=== PATIENT | male | born 1940 | race Caucasian/White ===

== ENCOUNTER 2016-08-13 15:02 | Inpatient (IN) | payer MEDICARE, OTHER ==
[2016-08-13] MEDS ORDERED: SODIUM CHLORIDE 500 ML IV STA (15:32)
--- NOTE | 2016-08-13 15:34 | PDOC ---
History of Present Illness - General History Source: Patient, Family, Old Records Exam Limitations: No Limitations - History of Present Illness Initial Comments: 08/13/16 18:41 The patient is a 76 year old male presenting with his family, with a significant past medical history of COPD, PPH, HTN, CVA, who presents to the emergency department with weakness, poor appetite cough and shortness of breath for the past 4 days. The family describes the cough as productive of a yellow sputum. The family also notes that the patients lower extremities and abdomen has been swelling over the last 10 days. They have also noticed that the patient has been diaphoretic. The family states that the patient has not been eating or drinking well, eating only once a day. They note that he has been complaining of dizziness during this time frame as well. The patient has been following closely with Dr Alston due to his retention of liquid. He is currently on Lasix 80 mg in the morning and [address] Alston notes that he has seen some improvement with the increase Lasix. He notes that he has d/c most of his cardiac medication with the exception of Lasix due to the patients clinical condition. The patient denies chest pain, headache and dizziness. Denies fever, chills, nausea, vomit, diarrhea and constipation. Denies dysuria, frequency, urgency and hematuria. 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 <Tye Serrano - Last Filed: 08/13/16 18:40> - General History Source: Patient <[place] - Last Filed: 08/13/16 18:47> - General Chief Complaint: Weakness Stated Complaint: WEAKNESS Time Seen by Provider: 08/13/16 15:21 Past History <Tye Serrano - Last Filed: 08/13/16 18:40> - Past Medical History Anemia: No Asthma: No Cancer: No Cardiac Disorders: Yes (PACEMAKER lft) CVA: Yes (residual Left sided weakness) COPD: Yes CHF: Yes Dementia: No Diabetes: No GI Disorders: Yes (gerd) Disorders: No HTN: Yes Hypercholesterolemia: Yes Liver Disease: No Suicide Attempt (Hx): No Seizures: No Thyroid Disease: No - Surgical History Abdominal Surgery: No Appendectomy: No Cardiac Surgery: Yes (BYPASS, PACEMAKER) Cholecystectomy: No Lung Surgery: No Neurologic Surgery: No - Immunization History Immunization Up to Date: Yes - Psycho/Social/Smoking Cessation Hx Anxiety: No Suicidal Ideation: No Smoking Status: Yes (STOPPED 3 MONTHS) Smoking History: Unknown if ever smoked Have you smoked in the past 12 months: Yes Number of Cigarettes Smoked Daily: 2 If you are a former smoker, when did you quit?: APRIL 2012 'Breaking Loose' booklet given: 02/09/14 Hx Alcohol Use: No Drug/Substance Use Hx: No Substance Use Type: None Hx Substance Use Treatment: No <[place] - Last Filed: 08/13/16 18:47> - Past Medical History Allergies/Adverse Reactions: Allergies Allergy/AdvReac Type Severity Reaction Status Date / Time No Known Drug Allergies Allergy Verified 08/13/16 16:03 Home Medications: Ambulatory Orders Aspirin [ASA -] 81 mg PO DAILY 02/08/14 Atorvastatin Ca [Lipitor] 10 mg PO HS 02/08/14 Clopidogrel Bisulfate [Plavix -] 75 mg PO DAILY 02/08/14 Potassium Chloride [K-Dur] 20 meq PO DAILY 02/08/14 Ranitidine [Zantac -] 150 mg PO DAILY 02/08/14 Furosemide [Lasix -] 40 mg PO BID 08/13/16 Review of Systems - Review of Systems Able to Perform ROS?: Yes Comments:: 08/13/16 18:41 CONSTITUTIONAL: Reported: Generalized weakness, diaphoresis and loss of appetite No reported: Fever, Chills, malaise HEENT: No reported: Rhinorrhea, Nasal Congestion, Throat Pain, Throat Swelling, Difficulty Swallowing, Mouth Swelling, Ear Pain, Eye Pain, Visual Changes CARDIOVASCULAR: No reported: Chest Pain, Syncope, Palpitations, Irregular Heart Rate, Lightheadedness, Peripheral Edema RESPIRATORY: Reported: Cough, shortness of breath No reported: SOB with Exertion, Orthopnea, Wheezing, Stridor, Hemoptysis GASTROINTESTINAL: No reported: Abdominal pain, Abdominal Distension, Nausea, Vomiting, Diarrhea, Constipation, Melena, Hematochezia GENITOURINARY: No reported: Dysuria, Frequency, Urgency, Hesitancy, Flank Pain, Genital Pain MUSCULOSKELETAL: No reported: Myalgia, Arthralgia, Joint Swelling, Back pain, Neck Pain SKIN: No reported: Rash, Itching, Pallor HEMEATOLOGIC/IMMUNOLOGIC: No reported: Easy Bleeding, Easy Bruising, Lymphadenopathy, Frequent infections ENDOCRINE: No reported: Unexplained Weight Gain, Unexplained Weight Loss, Heat Intolerance , Cold Intolerance NEUROLOGIC: No reported: Headache, Focal Weakness, Paresthesias, Vertigo, Lightheadedness, Unsteady Gait, Seizure, Mental Status Changes, Incontinence PSYCHIATRIC: No reported: Anxiety, Depression <Tye Serrano - Last Filed: 08/13/16 18:40> *Physical Exam - Vital Signs Last Vital Signs Temp Pulse Resp BP Pulse Ox 98.2 F 80 19 96/61 95 08/13/16 17:15 08/13/16 17:15 08/13/16 17:15 08/13/16 17:15 08/13/16 17:15 - Physical Exam Comments: 08/13/16 18:41 GENERAL: The patient is awake, alert,Nontoxic - in no acute distress. HEAD: Normocephalic, atraumatic. EYES: extraocular movements intact, sclera anicteric, conjunctiva clear. ENT: Normal voice, dry mucous membranes NECK: Normal range of motion, supple LUNGS: Breath sounds equal, clear to auscultation bilaterally. No wheezes, no rhonchi, no rales. HEART: Regular rate and rhythm, without murmur, rub or gallop. ABDOMEN: +Distended abdomen, nontender, normoactive bowel sounds. No guarding, no rebound.No CVA tenderness RECTAL: yellow stool EXTREMITIES: +2 pitting edema bilatrally. No calf tenderness. Negative holmans sign. Normal range of motion, no edema. No clubbing or cyanosis. No cords, erythema, or tenderness. NEUROLOGICAL: No facial assymetry, Normal speech, PSYCH: Normal mood, normal affect. SKIN: Warm, Dry, normal turgor <Tye Serrano - Last Filed: 08/13/16 18:40> Heart Score/ECG Review - ECG Impressions Comment:: 08/13/16 18:46 Twelve-lead EKG was performed and reviewed by me. Atrial sensed pacing with occasional AV dual paced complexes No changes suggestive of acute ischemia <[place] - Last Filed: 08/13/16 18:47> ED Treatment Course - LABORATORY CBC & Chemistry Diagram: 08/13/16 15:45 08/13/16 15:45 - ADDITIONAL ORDERS Additional order review: Laboratory Results 08/13/16 08/13/16 08/13/16 15:54 15:45 15:45 INR PTT (Actin FS) VBG pH 7.30 L POC VBG pCO2 49.2 POC VBG pO2 25.4 L Mixed VBG HCO3 23.4 Sodium Potassium Chloride Carbon Dioxide Anion Gap BUN Creatinine Creat Clearance w eGFR Random Glucose Lactic Acid Calcium Total Bilirubin AST ALT Alkaline Phosphatase Creatine Kinase Troponin I B-Natriuretic Peptide 64558.01 H Total Protein Albumin Blood Type A POSITIVE Antibody Screen Negative Crossmatch See Detail 08/13/16 08/13/16 08/13/16 15:45 15:45 15:36 INR 1.68 H PTT (Actin FS) 30.9 VBG pH POC VBG pCO2 POC VBG pO2 Mixed VBG HCO3 Sodium 144 Potassium 4.2 Chloride 109 H Carbon Dioxide 23 D Anion Gap 12 BUN 64 H D Creatinine 1.9 H D Creat Clearance w eGFR 34.64 Random Glucose 111 H D Lactic Acid 4.998 H* Calcium 8.1 L Total Bilirubin 1.3 H D AST 26 D ALT 17 D Alkaline Phosphatase 157 H Creatine Kinase 67 Troponin I 0.06 H D B-Natriuretic Peptide Total Protein 6.9 Albumin 2.4 L D Blood Type Antibody Screen Crossmatch 08/13/16 15:45 RBC 3.43 L D MCV 67.4 L MCHC 26.9 L RDW 24.9 H D MPV 9.1 Neutrophils % 75.1 D Lymphocytes % 8.8 D Monocytes % 14.1 H Eosinophils % 1.0 Basophils % 1.0 - Medications Given in the ED: ED Medications Discontinued Medications Generic Name Dose Route Start Last Admin Trade Name Freq PRN Reason Stop Dose Admin Sodium Chloride 500 mls @ 500 mls/hr 08/13/16 15:32 08/13/16 15:32 Normal Saline - IV 08/13/16 16:31 500 mls/hr ASDIR STA Administration <Tye Serrano - Last Filed: 08/13/16 18:40> - LABORATORY CBC & Chemistry Diagram: 08/13/16 15:45 08/13/16 15:45 - RADIOLOGY Radiology Studies Ordered: Category Date Time Status CHEST X-RAY PORTABLE* [RAD] Stat Radiology 08/13/16 15:31 Ordered <[place] - Last Filed: 08/13/16 18:47> Medical Decision Making - Medical Decision Making 08/13/16 15:34 76y M hx of copd, chf s/p PM, CVA with residula left sided weakness, htn, hl, presents with complaint of general weakness, sob/cough productive of yellowish sputum for several days w/o fevers, pt does endorse increased leg swelling w/o any pain. on exam pt noted to have dry mmm with dependent edema, pts vitals noted hypotension. differential includes possible sepsis/pna, renal failure, chf, metabolic dernagement will fluid resusitate to see if bp is improved with fluid bolus cxr to r/o pna/ acute pulm disease will obtain trop,bnp, ekg will reassess 08/13/16 16:47 Laboratory Tests 08/13/16 08/13/16 08/13/16 15:36 15:45 15:45 WBC 10.4 H D Hgb 6.2 L* D Hct 23.0 L D Plt Count 316 D INR 1.68 H PTT (Actin FS) 30.9 VBG pH POC VBG pCO2 POC VBG pO2 Mixed VBG HCO3 Sodium Potassium Chloride Carbon Dioxide Anion Gap BUN Creatinine Creat Clearance w eGFR Random Glucose Lactic Acid Pending Calcium Total Bilirubin Alkaline Phosphatase Troponin I B-Natriuretic Peptide Total Protein Albumin 08/13/16 08/13/16 08/13/16 15:45 15:45 15:54 WBC Hgb Hct Plt Count INR PTT (Actin FS) VBG pH 7.30 L POC VBG pCO2 49.2 POC VBG pO2 25.4 L Mixed VBG HCO3 23.4 Sodium 144 Potassium 4.2 Chloride 109 H Carbon Dioxide 23 D Anion Gap 12 BUN 64 H D Creatinine 1.9 H D Creat Clearance w eGFR 34.64 Random Glucose 111 H D Lactic Acid Calcium 8.1 L Total Bilirubin 1.3 H D Alkaline Phosphatase 157 H Troponin I 0.06 H D B-Natriuretic Peptide 52550.01 H Total Protein 6.9 Albumin 2.4 L D The patient's blood work was reviewed the patient is noted to be severely anemic with a hemoglobin of 6.9. will give pt 2u of prrbc as this is likely the cause of his dizzines stool guaaic pending but is brown will give blood slowly due to poor EF will admit to telemetry The patient's creatinine is also elevated from baseline and likely secondary to overdiuresis. The patient's chest x-ray reveals some central congestive changes case dw dr. novak, agree with management and admission to tele CRITICAL CARE DOCUMENTATION: I spent ~35 minutes of Critical Care time, excluding separately billable procedures, involving high complexity decision making to assess, manipulate and support vital system function(s) to treat single or multiple vital organ system failure and/or to prevent further life threatening deterioration of the patient' s condition. 08/13/16 17:13 pts lactic acid elevated to 4.9 suspect secondary to hypoerfusion / anemia will recheck after he gets some blood/fluid will upgrade to ICU until Lactic acid is improved and bp stable <[place] - Last Filed: 08/13/16 18:47> *DC/Admit/Observation/Transfer - Attestations Scribe Attestion: 08/13/16 18:41 Documentation prepared by Tye Serrano, acting as medical billing supervisor for [place] MD <Tye Serrano - Last Filed: 08/13/16 18:40> - Discharge Dispostion Admit: Yes <[place] - Last Filed: 08/13/16 18:47> Diagnosis at time of Disposition: Anemia Qualifiers: Anemia type: unspecified type Qualified Code(s): D64.9 - Anemia, unspecified CHF (congestive heart failure) Qualifiers: Congestive heart failure type: combined Congestive heart failure chronicity: acute on chronic Qualified Code(s): I50.43 - Acute on chronic combined systolic (congestive) and diastolic (congestive) heart failure CKD (chronic kidney disease) Qualifiers: Chronic kidney disease stage: unspecified stage Qualified Code(s): N18.9 - Chronic kidney disease, unspecified - Discharge Dispostion Condition at time of disposition: Guarded
[2016-08-13 15:54] LABS: VENOUS BLOOD GAS HCO3 23.4 meq/L (19-25); VENOUS PH 7.3 (7.32-7.42)
[2016-08-13 15:54] LABS: MCHC 26.9 g/dl (32.0-35.9); MEAN CELL VOLUME 67.4 fl (80-96); MEAN PLT VOLUME 9.1 fl (7.5-11.1); NEUTROPHILS 75.1 % (42.8-82.8); PLATELET COUNT 316 K/MM3 (134-434); RDW 24.9 % (11.9-15.9); WHITE BLOOD COUNT 10.4 K/mm3 (4.0-10.0)
[2016-08-13 16:16] LABS: ALBUMIN 2.4 g/dl (3.4-5.0); BILIRUBIN,TOTAL 1.3 mg/dL (0.2-1.0); CALCIUM 8.1 mg/dL (8.5-10.1); COCKROFT - GAULT 30.1; CREATININE 1.9 mg/dL (0.7-1.3); INR 1.68 (0.82-1.09); PROTHROMBIN TIME (PATIENT) 18.7 SEC (9.98-11.88); TOT PROT 6.9 g/dl (6.4-8.2)
[2016-08-13 16:19] LABS: ACTIVATED PTT 30.9 SECONDS (26.9-34.4); TROPONIN I 0.06 ng/ml (0.00-0.05)
[2016-08-13 16:32] LABS: MCH 18.1 pg (25.7-33.7)
[2016-08-13 16:54] LABS: ANISOCYTOSIS 2+; HYPOCHROMIA 3+; MICROCYTOSIS 1+; OVALOCYTES 1+; PLATELET ESTIMATE ADEQUATE (NORMAL); POLYCHROMASIA 1+
[2016-08-13] MEDS ORDERED: ACETAMINOPHEN 325 MG TABLET (FP) PO PRN (17:15)
--- NOTE | 2016-08-13 17:21 | HP ---
Admitting History and Physical - Primary Care Physician PCP: Purnima Driscoll - Admission Chief Complaint: sob/ weakness History of Present Illness: Pt 76y with hx of copd, chf - very low EF, s/p PM, CVA with residual left sided weakness, htn, hl, presented with complaint of general weakness, sob/ cough productive of yellowish sputum for several days w/o fevers,chills pt also complained of increased leg swelling w/o any pain. In er pt noted to be in hypotensive/ arf-- given fluids work up also showed worsening of chf lactic acid also elevated. Pt also to be transfused as hb around 6-- and to be admitted to icu. guiac -ve Pt seen by me in icu -- discussed with er physician. chart reviewed. pt known to me from office -- last visit 05/08 pt continue to smoke. pt denies any blood in stools. cxr - consistent with chf. History Source: Patient, Family Member, Medical Record Limitations to Obtaining History: Clinical Condition - Past Medical History Cardiovascular: Yes: CAD (status post CABG), CHF, HTN Pulmonary: Yes: COPD Renal/: Yes: Renal Inusuff, BPH - Past Surgical History Past Surgical History: Yes: AICD, CABG - Smoking History Smoking history: Unknown if ever smoked Have you smoked in the past 12 months: Yes Aproximately how many cigarettes per day: 2 If you are a former smoker, when did you quit?: APRIL 2012 - Alcohol/Substance Use Hx Alcohol Use: No - Social History ADL: Family Assistance History of Recent Travel: No Home Medications - Allergies Allergies/Adverse Reactions: Allergies Allergy/AdvReac Type Severity Reaction Status Date / Time No Known Drug Allergies Allergy Verified 08/13/16 16:03 - Home Medications Home Medications: Ambulatory Orders Aspirin [ASA -] 81 mg PO DAILY 02/08/14 Atorvastatin Ca [Lipitor] 10 mg PO HS 02/08/14 Clopidogrel Bisulfate [Plavix -] 75 mg PO DAILY 02/08/14 Potassium Chloride [K-Dur] 20 meq PO DAILY 02/08/14 Ranitidine [Zantac -] 150 mg PO DAILY 02/08/14 Furosemide [Lasix -] 40 mg PO BID 08/13/16 Review of Systems Unable to obtain ROS, reason: see [place] Physical Examination Vital Signs: Vital Signs Temperature 97.9 F 08/13/16 16:30 Pulse Rate 81 04/24/17 16:30 Respiratory Rate 20 08/13/16 16:30 Blood Pressure 126/71 08/13/16 16:30 O2 Sat by Pulse Oximetry (%) 93 L 08/13/16 16:30 Constitutional: Yes: Calm, Mild Distress Eyes: Yes: Conjunctiva Clear Neck: Yes: Supple Cardiovascular: Yes: Regular Rate and Rhythm Respiratory: Yes: Diminished Gastrointestinal: Yes: Soft, Abdomen, Obese, Tenderness (slightly distended . mild epigastric tenderness + no r/r bs +), Tenderness, Epigastrium Edema: LLE: 2+, RLE: 2+ Neurological: Yes: Alert Imaging - Results Chest X-ray: Report Reviewed Problem List - Problems (1) Anemia Code(s): D64.9 - ANEMIA, UNSPECIFIED Qualifiers: Anemia type: unspecified type Qualified Code(s): D64.9 - Anemia, unspecified (2) CHF (congestive heart failure) Code(s): I50.9 - HEART FAILURE, UNSPECIFIED Qualifiers: Congestive heart failure type: combined Congestive heart failure chronicity: acute on chronic Qualified Code(s): I50.43 - Acute on chronic combined systolic (congestive) and diastolic (congestive) heart failure (3) CKD (chronic kidney disease) Code(s): N18.9 - CHRONIC KIDNEY DISEASE, UNSPECIFIED Qualifiers: Chronic kidney disease stage: unspecified stage Qualified Code(s): N18.9 - Chronic kidney disease, unspecified (4) COPD (chronic obstructive pulmonary disease) Code(s): J44.9 - CHRONIC OBSTRUCTIVE PULMONARY DISEASE, UNSPECIFIED (5) Hypotension Code(s): I95.9 - HYPOTENSION, UNSPECIFIED (6) Lactic acid blood increased Code(s): R79.89 - OTHER SPECIFIED ABNORMAL FINDINGS OF BLOOD CHEMISTRY (7) Pacemaker Code(s): Z95.0 - PRESENCE OF CARDIAC PACEMAKER Assessment/Plan Admit to icu. transfuse. lasix if bp allows got iv fluids monitor lactic acid. cardiology to follow condition guarded/ critical. i/v protonix Possible upper gi bleed - due to asa// plavix-- will hold for now. clear liquid diet for now gi eval. dvt prophylaxis with stockings . cc time 35 min in examining/ documenting and cordating care will follow.
[2016-08-13] MEDS ORDERED: PANTOPRAZOLE SODIUM 100 ML IVPB ONE (17:25)
--- NOTE | 2016-08-13 20:06 | CONSULT ---
Consult Consult Specialty:: Pulm/CCM Reason for Consultation:: CHF exacerbation - History of Present Illness Chief Complaint: SOB, LE edema History of Present Illness: This is a 76 yo man active tobacco w/ COPD, HTN, HLD, systolic HF s/p PPM, CVA w / left sided hemiparesis who presented to ED with progressive LE edema and SOB w / HATHAWAY over the last week. Denies, fever, chills, sick contacts. In the ED labs significant for anemia (Hgb 6.2), BNP 15k, lactic acidosis (5). CXR c/w PVC. LE dopplers negative for DVT. He initially received IV fluids x 500ml. Patient admitted to the ICU. On arrival to ICU patient on NC 2lpm Sat 100%. VSS: BP 100/ 60. PRBC x1 given for anemia. - History Source History Provided By: Patient, Medical Record Limitations to Obtaining History: Language Barrier - Past Medical History Cardio/Vascular: Yes: CAD (status post CABG), CHF, HTN Pulmonary: Yes: COPD Renal/: Yes: Renal Inusuff, BPH - Past Surgical History Past Surgical History: Yes: AICD, CABG - Alcohol/Substance Use Hx Alcohol Use: No - Smoking History Smoking history: Unknown if ever smoked Have you smoked in the past 12 months: Yes Aproximately how many cigarettes per day: 2 If you are a former smoker, when did you quit?: APRIL 2012 - Social History ADL: Family Assistance History of Recent Travel: No Home Medications - Allergies Allergies/Adverse Reactions: Allergies Allergy/AdvReac Type Severity Reaction Status Date / Time No Known Drug Allergies Allergy Verified 08/13/16 16:03 - Home Medications Home Medications: Ambulatory Orders Aspirin [ASA -] 81 mg PO DAILY 02/08/14 Atorvastatin Ca [Lipitor] 10 mg PO HS 02/08/14 Clopidogrel Bisulfate [Plavix -] 75 mg PO DAILY 02/08/14 Potassium Chloride [K-Dur] 20 meq PO DAILY 02/08/14 Ranitidine [Zantac -] 150 mg PO DAILY 02/08/14 Furosemide [Lasix -] 40 mg PO BID 08/13/16 Family Disease History - Family Disease History Family History: Unremarkable Review of Systems - Review of Systems Cardiovascular: reports: Edema, Shortness of Breath Respiratory: reports: Cough, Orthopnea, SOB on Exertion Physical Exam Vital Signs: Vital Signs Temperature 98.2 F 08/13/16 17:15 Pulse Rate 80 08/13/16 17:15 Respiratory Rate 19 08/13/16 17:15 Blood Pressure 96/61 08/13/16 17:15 O2 Sat by Pulse Oximetry (%) 95 08/13/16 17:15 Current Medications Acetaminophen (Tylenol -) 650 mg PO Q6H PRN PRN Reason: FEVER OR PAIN Albuterol Sulfate (Ventolin 0.083% Nebulizer Soln -) 1 amp NEB Q6H PRN PRN Reason: SHORT OF BREATH/WHEEZING Atorvastatin Calcium (Lipitor -) 10 mg PO HS [place] Chlorhexidine Gluconate (Hibiclens For Decolonization -) 1 applic TP HS [place] Pantoprazole Sodium (Protonix 40mg Ivpb (Pre-Docked)) 100 mls @ 200 mls/hr IVPB DAILY [place] Mupirocin (Bactroban Ointment (For Decolonization) -) 1 applic NS BID [place] Stop: 08/18/16 21:59 Nicotine (Nicoderm Patch -) 14 mg TD DAILY [place] Constitutional: Yes: No Distress, Calm Eyes: Yes: WNL, EOM Intact Cardiovascular: Yes: Murmur, Other (paced) Respiratory: Yes: Rales (bilateral bases) Gastrointestinal: Yes: Soft, Abdomen, Obese Edema: LLE: 3+, RLE: 3+ Peripheral Pulses WNL: Yes Neurological: Yes: Alert, Oriented Labs: CBCD WBC 10.4 K/mm3 (4.0-10.0) H D 08/13/16 15:45 RBC 3.43 M/mm3 (4.00-5.60) L D 08/13/16 15:45 Hgb 6.2 GM/dL (11.7-16.9) L* D 08/13/16 15:45 Hct 23.0 % (35.4-49) L D 08/13/16 15:45 MCV 67.4 fl (80-96) L 08/13/16 15:45 MCHC 26.9 g/dl (32.0-35.9) L 08/13/16 15:45 RDW 24.9 % (11.9-15.9) H D 08/13/16 15:45 Plt Count 316 K/MM3 (134-434) D 08/13/16 15:45 MPV 9.1 fl (7.5-11.1) 08/13/16 15:45 CMP Sodium 144 mmol/L (136-145) 08/13/16 15:45 Potassium 4.2 mmol/L (3.5-5.1) 08/13/16 15:45 Chloride 109 mmol/L (98-107) H 08/13/16 15:45 Carbon Dioxide 23 mmol/L (21-32) D 08/13/16 15:45 Anion Gap 12 (8-16) 08/13/16 15:45 BUN 64 mg/dL (7-18) H D 08/13/16 15:45 Creatinine 1.9 mg/dL (0.7-1.3) H D 08/13/16 15:45 Creat Clearance w eGFR 34.64 (>60) 08/13/16 15:45 Random Glucose 111 mg/dL (74-106) H D 08/13/16 15:45 Calcium 8.1 mg/dL (8.5-10.1) L 08/13/16 15:45 Total Bilirubin 1.3 mg/dL (0.2-1.0) H D 08/13/16 15:45 AST 26 U/L (15-37) D 08/13/16 15:45 ALT 17 U/L (12-78) D 08/13/16 15:45 Alkaline Phosphatase 157 U/L (45-117) H 08/13/16 15:45 Total Protein 6.9 g/dl (6.4-8.2) 08/13/16 15:45 Albumin 2.4 g/dl (3.4-5.0) L D 08/13/16 15:45 CARDIAC ENZYMES Creatine Kinase 67 IU/L (39-308) 08/13/16 15:45 Troponin I 0.06 ng/ml (0.00-0.05) H D 08/13/16 15:45 Laboratory Tests 08/13/16 08/13/16 15:36 15:45 Lactic Acid 4.998 H* B-Natriuretic Peptide 94409.01 H Problem List - Problems (1) Anemia Code(s): D64.9 - ANEMIA, UNSPECIFIED Qualifiers: Anemia type: unspecified type Qualified Code(s): D64.9 - Anemia, unspecified (2) CKD (chronic kidney disease) Code(s): N18.9 - CHRONIC KIDNEY DISEASE, UNSPECIFIED Qualifiers: Chronic kidney disease stage: unspecified stage Qualified Code(s): N18.9 - Chronic kidney disease, unspecified (3) Lactic acid blood increased Code(s): R79.89 - OTHER SPECIFIED ABNORMAL FINDINGS OF BLOOD CHEMISTRY (4) CHF exacerbation Code(s): I50.9 - HEART FAILURE, UNSPECIFIED (5) COPD (chronic obstructive pulmonary disease) Code(s): J44.9 - CHRONIC OBSTRUCTIVE PULMONARY DISEASE, UNSPECIFIED (6) HTN (hypertension) Code(s): I10 - ESSENTIAL (PRIMARY) HYPERTENSION Assessment/Plan a/p 76 yo man active tobacco, COPD, HTN, HLD systolic HF s/p PPM presents with progressive LE edema and SOB most likely CHF exacerbation w/ MAKI likely prerenal and lactic acidosis r/t poor forward flow. Anemia likely ACD. SOB is less likely r/t CAP -O2 for sat >89% -will hold off on ABX at this time if any signs of infection will cover for CAP : azithro and ceftriaxone -cont statin -restart ASA/plavix per cardiology -trend lactate -prn albuterol -lasix for O>I (will given additional dose tonight given PRBC transfusion) -urine lytes -renal u/s -renal dose all medications -TTE, telemonitoring -normal transfusion thresholds: goal Hgb >7.0 -smoking cessation -nicoderm patch -DVT prophylaxis -likely stable for tele transfer in AM [place] ACNP Pulm/CCM CCT: 35
[2016-08-13] MEDS ORDERED: FUROSEMIDE 40 MG/4 ML INJECTABLE VIAL IVPUSH ONE (20:35)
[2016-08-13] MEDS ORDERED: ALBUTEROL SO4 0.083% IH SOL 2.5 MG/3 ML VIAL.NEB. NEB PRN (20:49)
[2016-08-13 21:44] VITALS: BMI 22.6
[2016-08-13] MEDS ORDERED: PNEUMOC 13-VAL CONJ-DIP CRM/PF 0.5 ML DISP.SYRIN IM ONE (21:44)
[2016-08-13] MEDS ORDERED: INFLUENZA VACCINE 45 MCG/0.5 ML (MDV 16-17) IM ONE (21:46)
[2016-08-13] MEDS: ATORVASTATIN CA 10 MG TABLET (FP) PO SCH (22:23)
[2016-08-13] MEDS: NICOTINE 14 MG/24 HOURS TOPICAL PATCH TD SCH (22:24)
[2016-08-13] MEDS: CHLORHEXIDINE GLUCONATE 4% CLEANSER FOR DECOLONIZATION TP SCH (22:25)
[2016-08-13] MEDS: MUPIROCIN 2% TOPICAL OINTMENT FOR DECOLONIZATION NS SCH (22:25)
[2016-08-14 06:50] LABS: BASOPHIL 0.8 % (0-2.0); EOSINOPHIL 1.8 % (0-4.5); MEAN CELL VOLUME 68.1 fl (80-96); MEAN PLT VOLUME 8.8 fl (7.5-11.1); NEUTROPHILS 74.8 % (42.8-82.8); PLATELET COUNT 242 K/MM3 (134-434); RDW 22.7 % (11.9-15.9)
[2016-08-14 07:00] LABS: MCH 19.1 pg (25.7-33.7)
[2016-08-14 07:31] LABS: ALBUMIN 2.3 g/dl (3.4-5.0); BILIRUBIN,TOTAL 1.8 mg/dL (0.2-1.0); CALCIUM 8.3 mg/dL (8.5-10.1); CREATININE 1.7 mg/dL (0.7-1.3); MAGNESIUM 2.9 mg/dL (1.8-2.4); TOT PROT 6.3 g/dl (6.4-8.2)
[2016-08-14 08:48] LABS: INR 1.66 (0.82-1.09); PROTHROMBIN TIME (PATIENT) 18.5 SEC (9.98-11.88)
--- NOTE | 2016-08-14 08:56 | CON.GI ---
Consult Consult Specialty:: GI Referred by:: Dr. Veronica Driscoll Reason for Consultation:: Anemia - History of Present Illness Chief Complaint: I felt weak History of Present Illness: 76M admitted for evaluation of weakness. He was seen in [facility] in 2012 for abnl LFTs and anemia: admitted to [facility] at that time and underwent EGD and colonoscopy that were essentially unrevealing aside from a small non-bleeding ectasia in the transverse colon. He also had an unrevealing small bowel series. Capsule endoscopy was deferred at that time as his hgb improved on iron supplementation. His LFT abnormalities were felt to be secondary to cardiac dysfunction. Echocardiogram in 2013 revealed reduced RV function, severe pulmonary HTN and severely reduced LV function There is no reported rectal bleeding / melena. Has been on escalating doses of lasix as an outpatient per the chart. 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 Place of : Other ([facility]) History of Recent Travel: No Home Medications - Allergies Allergies/Adverse Reactions: Allergies Allergy/AdvReac Type Severity Reaction Status Date / Time No Known Drug Allergies Allergy Verified 08/13/16 16:03 - Home Medications Home Medications: Ambulatory Orders Aspirin [ASA -] 81 mg PO DAILY 02/08/14 Atorvastatin Ca [Lipitor] 10 mg PO HS 02/08/14 Clopidogrel Bisulfate [Plavix -] 75 mg PO DAILY 02/08/14 Potassium Chloride [K-Dur] 20 meq PO DAILY 02/08/14 Ranitidine [Zantac -] 150 mg PO DAILY 02/08/14 Furosemide [Lasix -] 40 mg PO BID 08/13/16 Family Disease History - Family Disease History Family Disease History: Other: Father ( natural causes), Mother ( natural causes) Other Family History: 6 siblings: 2 siblings healthy, 3 siblings with heart conditions. 6 healthy children Review of Systems - Review of Systems Constitutional: denies: Unintentional Wgt. Loss Cardiovascular: denies: Chest Pain Respiratory: reports: Cough, SOB Physical Exam-GI Vital Signs: Vital Signs Temperature 97.8 F 08/13/16 22:00 Pulse Rate 77 08/14/16 06:00 Respiratory Rate 19 08/14/16 06:00 Blood Pressure 97/62 08/14/16 06:00 O2 Sat by Pulse Oximetry (%) 100 08/13/16 21:54 Constitutional: Yes: Calm Eyes: No: Sclera Icterus Cardiovascular: Yes: Regular Rate and Rhythm, Murmur Respiratory: Yes: Diminished (at bases bilaterally) Gastrointestinal Inspection: Yes: Distention (protuberant abdomen) ...Auscultate: Yes: Normoactive Bowel Sounds ...Palpate: Yes: Hepatomegaly. No: Tenderness ...Percussion: No: Tympanitic ...Rectal Exam: Yes: Guaiac Negative (copious light brown stool in rectal vault) Genitourinary: Yes: Scrotal Edema Edema: No Neurological: Yes: Alert, Oriented Labs: CBC, BMP 08/14/16 05:17 08/14/16 05:17 INR, PTT INR 1.68 (0.82-1.09) H 08/13/16 15:45 Problem List - Problems (1) Anemia Assessment/Plan: Previous endoscopic evaluations in 2012 unrevealing aside from small vascular ectasia in the transverse colon. I suspect that he could also have ectasias in the small bowel as well that could be contributing to anemia. There has been no overt bleeding reported and guaiac negative x 2 during this admission. he is being evaluated by cardiology and update on Mr. Crooks's cardiac status will be given. He had poor cardiac function in 2013 and suspect that this has gotten worse. Then discussion with family would need to be had regarding potential repeat procedures with discussion of potential risks. I have added on iron studies Monitor H/H, transfuse with caution to cardiac status, consider heme eval Code(s): D64.9 - ANEMIA, UNSPECIFIED Qualifiers: Anemia type: unspecified type Qualified Code(s): D64.9 - Anemia, unspecified
[2016-08-14] MEDS ORDERED: PT OWN MED DRAWER 7, Y5N ONE (09:22)
--- NOTE | 2016-08-14 09:46 | PN ---
Progress Note, Physician Chief Complaint: Events noted Pt admitted in ICU for CHF decompensation and severe anemia has pain in left knee- unable to straighten the knee No abd pain No SOB feels tired, received 1 unit PRBC - Current Medication List Current Medications: Active Medications Acetaminophen (Tylenol -) 650 mg PO Q6H PRN PRN Reason: FEVER OR PAIN Albuterol Sulfate (Ventolin 0.083% Nebulizer Soln -) 1 amp NEB Q6H PRN PRN Reason: SHORT OF BREATH/WHEEZING Albuterol/Ipratropium (Duoneb -) 1 amp NEB QIDR [place] Atorvastatin Calcium (Lipitor -) 10 mg PO HS [facility] Last Admin: 08/13/16 22:23 Dose: 10 mg Chlorhexidine Gluconate (Hibiclens For Decolonization -) 1 applic TP [facility] Last Admin: 08/13/16 22:25 Dose: 1 applic Pantoprazole Sodium (Protonix 40mg Ivpb (Pre-Docked)) 100 mls @ 200 mls/hr IVPB DAILY [facility] Mupirocin (Bactroban Ointment (For Decolonization) -) 1 applic NS BID [facility] Stop: 08/18/16 21:59 Last Admin: 08/13/16 22:25 Dose: 1 applic Nicotine (Nicoderm Patch -) 14 mg TD DAILY [facility] Last Admin: 08/13/16 22:24 Dose: 14 mg - Objective Vital Signs: Vital Signs Temperature 97.8 F 08/13/16 22:00 Pulse Rate 77 08/14/16 06:00 Respiratory Rate 19 08/14/16 06:00 Blood Pressure 97/62 08/14/16 06:00 O2 Sat by Pulse Oximetry (%) 100 08/13/16 21:54 Constitutional: Yes: No Distress, Calm Cardiovascular: Yes: Regular Rate and Rhythm, Murmur Respiratory: Yes: Diminished Gastrointestinal: Yes: Normal Bowel Sounds, Soft, Distention (suprapubic). No: Tenderness Extremities: Yes: Other (left knee warm and tender) Edema: Yes Edema: LLE: 1+, RLE: 1+ Labs: CBC, BMP 08/14/16 05:17 08/14/16 05:17 INR, PTT INR 1.66 (0.82-1.09) H 08/14/16 07:55 Problem List - Problems (1) Anemia Code(s): D64.9 - ANEMIA, UNSPECIFIED Qualifiers: Anemia type: unspecified type Qualified Code(s): D64.9 - Anemia, unspecified (2) CHF (congestive heart failure) Code(s): I50.9 - HEART FAILURE, UNSPECIFIED Qualifiers: Congestive heart failure type: combined Congestive heart failure chronicity: acute on chronic Qualified Code(s): I50.43 - Acute on chronic combined systolic (congestive) and diastolic (congestive) heart failure (3) CKD (chronic kidney disease) Code(s): N18.9 - CHRONIC KIDNEY DISEASE, UNSPECIFIED Qualifiers: Chronic kidney disease stage: unspecified stage Qualified Code(s): N18.9 - Chronic kidney disease, unspecified (4) Hypotension Code(s): I95.9 - HYPOTENSION, UNSPECIFIED (5) CHF exacerbation Code(s): I50.9 - HEART FAILURE, UNSPECIFIED (6) COPD (chronic obstructive pulmonary disease) Code(s): J44.9 - CHRONIC OBSTRUCTIVE PULMONARY DISEASE, UNSPECIFIED Assessment/Plan PLAN S/p PRBC May need one more unit check stool guaic No blood in diapers renal function better pt does not appear to be in distress may need to resume Lasix- spoke with Cardiology NPO GI kassieal appreciated xray of knee pending-- pt has knee pain for about a week and took meds for it but unable to tell what they are ? NSAIDS- will need to speak with daughter Protonix DVT prophylaxis- -SCD
--- NOTE | 2016-08-14 09:48 | CON.CARD ---
Cardiology Consult (text) - Consultation Consultation Note: CC: anemia 76 yo recent smoker (quit 6 mo ago) with h/o CAD s/p CABG, ischemic CM with EF 25% s/p BiVICD with secondary severe pulmonary hypertension, prior CVA, HL, copd, CKD, bph, chronic iron deficiency anemia who p/w worsened cough, sob and noted to have profound anemia. Poor historian. Per office notes, was sent to ER by coffee maker. In office noted to be hypotensive (bp at office 88/54). Appeared that volume status had been improving but had worsened le edema. Also with cough and subjective fevers --> concern for infection and/or superimposed HF exacerbation. has chronic cough but worse over the past week. no fever/chills/sweats. + abdominal distension and decreased appetite. no n/v/d, no bleeding from gi tract. has difficulty ambulating around house 2/2 chronic joint pain and dizziness with ambulation, stable. + worsened hensley. no orthopnea, cp, worsened le edema. + stable weights, no recent increase. 147 lbs. + fatigue received lasix 80 IV x 1 in ER yesterday --> Na increased but creatinine improved. s/p 1 Unit prbc this am. cards: Dr. Alston Pmhx: per hpi PsHx: per hpi social hx: quit tobacco 6 mo ago fam hx: no significant cardiac disease ros: per hpi. addtionally no rashes, headache, visual disturbances. Ambulatory Orders Aspirin [ASA -] 81 mg PO DAILY 02/08/14 Atorvastatin Ca [Lipitor] 10 mg PO HS 02/08/14 Clopidogrel Bisulfate [Plavix -] 75 mg PO DAILY 02/08/14 Potassium Chloride [K-Dur] 20 meq PO DAILY 02/08/14 Ranitidine [Zantac -] 150 mg PO DAILY 02/08/14 Furosemide [Lasix -] 40 mg PO BID 08/13/16 (at home had been on lasix 80 am/40 pm) Current Medications Acetaminophen (Tylenol -) 650 mg PO Q6H PRN PRN Reason: FEVER OR PAIN Albuterol Sulfate (Ventolin 0.083% Nebulizer Soln -) 1 amp NEB Q6H PRN PRN Reason: SHORT OF BREATH/WHEEZING Albuterol/Ipratropium (Duoneb -) 1 amp NEB QIDR [place] Atorvastatin Calcium (Lipitor -) 10 mg PO HS [facility] Last Admin: 08/13/16 22:23 Dose: 10 mg Chlorhexidine Gluconate (Hibiclens For Decolonization -) 1 applic TP HS [facility] Last Admin: 08/13/16 22:25 Dose: 1 applic Pantoprazole Sodium (Protonix 40mg Ivpb (Pre-Docked)) 100 mls @ 200 mls/hr IVPB DAILY [facility] Mupirocin (Bactroban Ointment (For Decolonization) -) 1 applic NS BID [place] Stop: 08/18/16 21:59 Last Admin: 08/13/16 22:25 Dose: 1 applic Nicotine (Nicoderm Patch -) 14 mg TD DAILY [facility] Last Admin: 08/13/16 22:24 Dose: 14 mg Vital Signs Period Temp Pulse Resp BP Sys/Vega Pulse Ox Last 24 Hr 97.7 F-98.7 F 75-85 16-20 72-149/46-76 93-100 Intake & Output 08/12/16 08/13/16 08/14/16 08/15/16 07:59 07:59 07:59 07:59 Intake Total 350 Balance 350 Weight Constitutional: Yes: Well Nourished, No Distress Eyes: No: Sclera Icterus HENT: No: Nasal Congestion Neck: No: Decreased ROM Respiratory: Yes: diffuse rhonchi No: Accessory Muscle Use, Wheezes Gastrointestinal: Yes: Normal Bowel Sounds. No: Distention, Hepatomegaly, Palpable Mass, Tenderness Cardiovascular: Yes: Regular Rate and Rhythm (soft heart sounds) JVD: Yes Carotid Bruit: No PMI: Displaced Heart Sounds: Yes: S1, S2. No: Gallop Murmur: 2/6 high pitched sys murmur at lsb and apex Musculoskeletal: Yes: Other (No kyphosis) Extremities: No: Cold, Cyanosis Edema: trace Peripheral Pulses: 2+ Left Carotid, 2+ Right Carotid, diminished dp/pt Integumentary: No: Jaundice Neurological: Yes: Alert, Oriented (x3) Psychiatric: No: Agitated - Other Data Labs, Other Data: CBC, BMP 08/14/16 05:17 08/14/16 05:17 Laboratory Tests 09/22/14 08/13/16 08/13/16 21:40 15:36 15:45 Hgb 6.2 L* D INR POC VBG pO2 Creatinine 1.1 Lactic Acid 4.998 H* Magnesium Total Bilirubin AST ALT Alkaline Phosphatase Creatine Kinase B-Natriuretic Peptide 2444.20 H Troponin I Albumin Stool Occult Blood 08/13/16 08/13/16 08/13/16 15:45 15:45 15:45 Hgb INR 1.68 H POC VBG pO2 Creatinine 1.9 H D Lactic Acid Magnesium Total Bilirubin 1.3 H D AST 26 D ALT 17 D Alkaline Phosphatase 157 H Creatine Kinase 67 B-Natriuretic Peptide 05036.01 H Troponin I 0.06 H D Albumin 2.4 L D Stool Occult Blood 08/13/16 08/13/16 08/14/16 15:54 17:00 05:17 Hgb INR POC VBG pO2 25.4 L Creatinine Lactic Acid Magnesium 2.9 H D Total Bilirubin AST 19 D ALT 15 Alkaline Phosphatase 146 H Creatine Kinase B-Natriuretic Peptide Troponin I Albumin Stool Occult Blood Negative 08/14/16 08/14/16 07:55 07:55 Hgb INR 1.66 H POC VBG pO2 Creatinine Lactic Acid 1.712 Magnesium Total Bilirubin AST ALT Alkaline Phosphatase Creatine Kinase B-Natriuretic Peptide Troponin I Albumin Stool Occult Blood tele: v-paced with intermittent Sinus beats vs. pvc. frequent nsvt EKG: biv-pacing with sinus beat vs. pvc cath 08/02 all grafts patent (self to lad, svg to lcx, svg to rpda) echo 07/2015: sev lve, sev reduced lvef (global). grade 2 diastolic dysfunction. nl RV. mild connie. dilated ivc. mod mr, mod-sev tr, sev phtn, mild pr. Echo 08/03: sev LVE with severe decr EF; mild RV dil with moderate hypo; mod MR/ TR; RVSP >60 Imaging - Results Chest X-ray: Report and images Reviewed: Report - central congestive changes. my review - CM, likely small bilateral pleural effusions, pulmonary edema. Assessment/Plan Assessment/Plan: Pre-operative clearance. - RCRI of 3. Has estimated high risk for jd-operative CV complications. Would optimize cardiac status over the next 24 hours if safe to delay endoscopy can be delayed. isch CMP (acute HF exacerbation) - s/p BiVICD --> routine outpatient monitoring. Last checked this month. Occasional brief nsvt noted. - Patient's weight actually stable in past month. However, with trace le edema and possible pulmonary congestion on CXR. ddx infection. After lasix 80 mg IV in ER last night, cr improved, but sodium worsened. Now s/p 1 PRBC and IV medications. Will give retrial of lasix 80 mg IV again now and recheck cmp in pm. If hypernatremia does not worsen, will continue with lasix 80 mg IV BID. - lactate improved CAD s/p h/o CABG 2006 - holding ASA, plavix. If anti-platelets can be resumed, would consider resuming just ASA. Currently not clear that he has a hard indication for plavix. - no angina. ekg v-paced, troponins neg x 1 h/o CVA details not clear from prior notes; not on AC, ASA only NSVT - having frequent nsvt. Seen on prior ICD checks. - electrolyte repletion prn. - con't telemetry monitoring. Monitor with improvement with treatment of underlying conditions. PAT - no recurrence on recent ICD check. COPD as disc'd. per PMD +/- pulm
[2016-08-14] MEDS: NICOTINE 14 MG/24 HOURS TOPICAL PATCH TD SCH (09:54)
[2016-08-14] MEDS: MUPIROCIN 2% TOPICAL OINTMENT FOR DECOLONIZATION NS SCH ×2 (09:55→21:07)
[2016-08-14] MEDS ORDERED: PANTOPRAZOLE SODIUM 100 ML IVPB SCH (10:00)
[2016-08-14] MEDS ORDERED: RANITIDINE HCL 150 MG TABLET (FP) PO SCH (10:00)
[2016-08-14] MEDS ORDERED: ALBUTEROL SO4 2.5/IPRATROPIUM 0.5 INH SOL 3 ML VIAL.NEB. NEB SCH (12:00)
--- NOTE | 2016-08-14 12:18 | PN ---
Teaching Attending Note Name of Resident: Lennox Laura ATTENDING PHYSICIAN STATEMENT I saw and evaluated the patient. I reviewed the resident's note and discussed the case with the resident. I agree with the resident's findings and plan as documented. SUBJECTIVE: Patient seen and examined in the ICU. Awake and alert. Reports dry cough. Denies CP. Hemodynamics stabilizing. Severe anemia noted. Will be receiving additional pRBCs. Intake & Output 08/11/16 08/12/16 08/13/16 08/14/16 23:59 23:59 23:59 23:59 Intake Total 350 Balance 350 Weight 148 lb 9.465 oz 217 lb 2.485 oz Last Vital Signs Temp Pulse Resp BP Pulse Ox 98.2 F 79 17 95/63 98 08/14/16 10:00 08/14/16 10:25 08/14/16 10:00 08/14/16 10:00 08/14/16 10:25 Active Medications Acetaminophen (Tylenol -) 650 mg PO Q6H PRN PRN Reason: FEVER OR PAIN Albuterol Sulfate (Ventolin 0.083% Nebulizer Soln -) 1 amp NEB Q6H PRN PRN Reason: SHORT OF BREATH/WHEEZING Albuterol/Ipratropium (Duoneb -) 1 amp NEB QIDR [place] Last Admin: 08/14/16 10:35 Dose: 1 amp Atorvastatin Calcium (Lipitor -) 10 mg PO HS [facility] Last Admin: 08/13/16 22:23 Dose: 10 mg Chlorhexidine Gluconate (Hibiclens For Decolonization -) 1 applic TP HS [facility] Last Admin: 08/13/16 22:25 Dose: 1 applic Furosemide (Lasix Injection -) 80 mg IVPUSH ONCE ONE Stop: 08/14/16 12:36 Famotidine/Sodium Chloride (Pepcid 20 Mg Premixed Ivpb -) 50 mls @ 100 mls/hr IVPB BID [place] Methylprednisolone Sodium Succinate (Solu-Medrol -) 40 mg IVPB BID [place] Mupirocin (Bactroban Ointment (For Decolonization) -) 1 applic NS BID [facility] Stop: 08/18/16 21:59 Last Admin: 08/14/16 09:55 Dose: 1 applic Nicotine (Nicoderm Patch -) 14 mg TD DAILY [facility] Last Admin: 08/14/16 09:54 Dose: 14 mg Constitutional: Yes: Awake and alert, NAD Eyes: Yes: WNL, EOM Intact Cardiovascular: Yes: Murmur, Paced Respiratory: Yes: Bilateral rhonchi and expiratory wheezes Gastrointestinal: Yes: Soft, Abdomen, Obese, (+) Fluid Edema: LLE: 3+, RLE: 3+ Peripheral Pulses WNL: Yes Neurological: Yes: Alert, Oriented Labs: Laboratory Results - last 24 hr 08/13/16 08/13/16 08/13/16 15:36 15:45 15:45 WBC 10.4 H D RBC 3.43 L D Hgb 6.2 L* D Hct 23.0 L D MCV 67.4 L MCHC 26.9 L RDW 24.9 H D Plt Count 316 D MPV 9.1 Neutrophils % 75.1 D Lymphocytes % 8.8 D Monocytes % 14.1 H Eosinophils % 1.0 Basophils % 1.0 Platelet Estimate Adequate Platelet Comment No clumping noted Polychromasia 1+ Hypochromic-Microcytic 3+ Anisocytosis 2+ Microcytosis 1+ Ovalocytes 1+ INR 1.68 H PTT (Actin FS) 30.9 VBG pH POC VBG pCO2 POC VBG pO2 Mixed VBG HCO3 Sodium Potassium Chloride Carbon Dioxide Anion Gap BUN Creatinine Creat Clearance w eGFR Random Glucose Lactic Acid 4.998 H* Calcium Magnesium Total Bilirubin AST ALT Alkaline Phosphatase Creatine Kinase Troponin I B-Natriuretic Peptide Total Protein Albumin Stool Occult Blood Blood Type Antibody Screen Crossmatch 08/13/16 08/13/16 08/13/16 15:45 15:45 15:45 WBC RBC Hgb Hct MCV MCHC RDW Plt Count MPV Neutrophils % Lymphocytes % Monocytes % Eosinophils % Basophils % Platelet Estimate Platelet Comment Polychromasia Hypochromic-Microcytic Anisocytosis Microcytosis Ovalocytes INR PTT (Actin FS) VBG pH POC VBG pCO2 POC VBG pO2 Mixed VBG HCO3 Sodium 144 Potassium 4.2 Chloride 109 H Carbon Dioxide 23 D Anion Gap 12 BUN 64 H D Creatinine 1.9 H D Creat Clearance w eGFR 34.64 Random Glucose 111 H D Lactic Acid Calcium 8.1 L Magnesium Total Bilirubin 1.3 H D AST 26 D ALT 17 D Alkaline Phosphatase 157 H Creatine Kinase 67 Troponin I 0.06 H D B-Natriuretic Peptide 46488.01 H Total Protein 6.9 Albumin 2.4 L D Stool Occult Blood Blood Type A POSITIVE Antibody Screen Negative Crossmatch See Detail 08/13/16 08/13/16 08/13/16 15:54 17:00 21:45 WBC RBC Hgb Hct MCV MCHC RDW Plt Count MPV Neutrophils % Lymphocytes % Monocytes % Eosinophils % Basophils % Platelet Estimate Platelet Comment Polychromasia Hypochromic-Microcytic Anisocytosis Microcytosis Ovalocytes INR PTT (Actin FS) VBG pH 7.30 L POC VBG pCO2 49.2 POC VBG pO2 25.4 L Mixed VBG HCO3 23.4 Sodium Potassium Chloride Carbon Dioxide Anion Gap BUN Creatinine Creat Clearance w eGFR Random Glucose Lactic Acid 2.130 H* Calcium Magnesium Total Bilirubin AST ALT Alkaline Phosphatase Creatine Kinase Troponin I B-Natriuretic Peptide Total Protein Albumin Stool Occult Blood Negative Blood Type Antibody Screen Crossmatch 08/14/16 08/14/16 08/14/16 05:17 05:17 05:17 WBC 10.0 RBC 3.57 L Hgb 6.8 L* Hct 24.3 L MCV 68.1 L MCHC 28.0 L RDW 22.7 H Plt Count 242 D MPV 8.8 Neutrophils % 74.8 Lymphocytes % 9.7 Monocytes % 12.9 H Eosinophils % 1.8 Basophils % 0.8 Platelet Estimate Platelet Comment Polychromasia Hypochromic-Microcytic Anisocytosis Microcytosis Ovalocytes INR PTT (Actin FS) VBG pH POC VBG pCO2 POC VBG pO2 Mixed VBG HCO3 Sodium 148 H Potassium 4.0 Chloride 109 H Carbon Dioxide 27 Anion Gap 12 BUN 66 H Creatinine 1.7 H Creat Clearance w eGFR 39.38 Random Glucose 103 Lactic Acid Calcium 8.3 L Magnesium 2.9 H D Total Bilirubin 1.8 H D AST 19 D ALT 15 Alkaline Phosphatase 146 H Creatine Kinase Troponin I B-Natriuretic Peptide 21609.97 H Total Protein 6.3 L Albumin 2.3 L Stool Occult Blood Blood Type Antibody Screen Crossmatch 08/14/16 08/14/16 07:55 07:55 WBC RBC Hgb Hct MCV MCHC RDW Plt Count MPV Neutrophils % Lymphocytes % Monocytes % Eosinophils % Basophils % Platelet Estimate Platelet Comment Polychromasia Hypochromic-Microcytic Anisocytosis Microcytosis Ovalocytes INR 1.66 H PTT (Actin FS) VBG pH POC VBG pCO2 POC VBG pO2 Mixed VBG HCO3 Sodium Potassium Chloride Carbon Dioxide Anion Gap BUN Creatinine Creat Clearance w eGFR Random Glucose Lactic Acid 1.712 Calcium Magnesium Total Bilirubin AST ALT Alkaline Phosphatase Creatine Kinase Troponin I B-Natriuretic Peptide Total Protein Albumin Stool Occult Blood Blood Type Antibody Screen Crossmatch Problem List - Problems (1) Anemia Code(s): D64.9 - ANEMIA, UNSPECIFIED Qualifiers: Anemia type: unspecified type Qualified Code(s): D64.9 - Anemia, unspecified (2) CKD (chronic kidney disease) Code(s): N18.9 - CHRONIC KIDNEY DISEASE, UNSPECIFIED Qualifiers: Chronic kidney disease stage: unspecified stage Qualified Code(s): N18.9 - Chronic kidney disease, unspecified (3) Lactic acid blood increased Code(s): R79.89 - OTHER SPECIFIED ABNORMAL FINDINGS OF BLOOD CHEMISTRY (4) CHF exacerbation Code(s): I50.9 - HEART FAILURE, UNSPECIFIED (5) COPD (chronic obstructive pulmonary disease) Code(s): J44.9 - CHRONIC OBSTRUCTIVE PULMONARY DISEASE, UNSPECIFIED (6) HTN (hypertension) Code(s): I10 - ESSENTIAL (PRIMARY) HYPERTENSION Assessment/Plan AE of COPD Severe / symptomatic anemia Do not suspect PNA Active smoker (?) Ascites HTN HPL PPM Severe LV dysfunction ARF Lactic acidosis Normal transfusion thresholds O2 as needed Medrol BD TX Hold on ABX for now Would not diurese further at this time GI evaluation noted Smoking cessation VTE prophylaxis Cardiac Telemetry monitoring Dr Stuart Critical care time spent reviewing chart, evaluating patient and formulating plan 35 min
[2016-08-14] MEDS ORDERED: FUROSEMIDE 40 MG/4 ML INJECTABLE VIAL IVPUSH ONE ×2 (12:35→17:30)
[2016-08-14 12:46] LABS: FERRITIN 28.597 ng/ml (16.4-293.9)
--- NOTE | 2016-08-14 13:03 | PN ---
<Lennox Laura - Last Filed: 08/14/16 13:30> Physical Exam: SUBJECTIVE: Patient seen and examined Patient came to ed with sob. has chronic cough but worse over the past week. no fever/chills/sweats. found to have anemia , recieved one pc , hb increased from 6.2 to 6.8. will give him one more unit of blood. diffuse wheez, b/l. started on duneb and solumedrol guiac test negative, will change protonix to pepcid Patient states breathing has improved. Denies chest pain, palpitations, lightheadedness. Denies nausea, vomiting, blood in stool and urine. Tenderness in left knee, will get xray. OBJECTIVE: Vital Signs Period Temp Pulse Resp BP Sys/Vega Pulse Ox Last 24 Hr 97.8 F-98.7 F 75-85 16-19 86-149/51-68 95-100 GENERAL: The patient is awake, alert, and fully oriented, in no acute distress. HEAD: Normal with no signs of trauma. EYES: PERRL, ENT: dry mucous membranes. LUNGS: Breath sounds equal, clear to auscultation bilaterally, wheezes present, no crackles, no accessory muscle use. HEART: s1s2 normal. ABDOMEN: Soft, nontender, nondistended, normoactive bowel sounds, no guarding, no rebound, EXTREMITIES: well-perfused, no edema. left knee tenderness. PSYCH: Normal mood, normal affect. SKIN: Warm, dry, Laboratory Results - last 24 hr 08/13/16 08/13/16 08/14/16 17:00 21:45 05:17 WBC 10.0 RBC 3.57 L Hgb 6.8 L* Hct 24.3 L MCV 68.1 L MCHC 28.0 L RDW 22.7 H Plt Count 242 D MPV 8.8 Neutrophils % 74.8 Lymphocytes % 9.7 Monocytes % 12.9 H Eosinophils % 1.8 Basophils % 0.8 INR Sodium Potassium Chloride Carbon Dioxide Anion Gap BUN Creatinine Creat Clearance w eGFR Random Glucose Lactic Acid 2.130 H* Calcium Magnesium Total Bilirubin AST ALT Alkaline Phosphatase B-Natriuretic Peptide Total Protein Albumin Stool Occult Blood Negative 08/14/16 08/14/16 08/14/16 05:17 05:17 07:55 WBC RBC Hgb Hct MCV MCHC RDW Plt Count MPV Neutrophils % Lymphocytes % Monocytes % Eosinophils % Basophils % INR 1.66 H Sodium 148 H Potassium 4.0 Chloride 109 H Carbon Dioxide 27 Anion Gap 12 BUN 66 H Creatinine 1.7 H Creat Clearance w eGFR 39.38 Random Glucose 103 Lactic Acid Calcium 8.3 L Magnesium 2.9 H D Total Bilirubin 1.8 H D AST 19 D ALT 15 Alkaline Phosphatase 146 H B-Natriuretic Peptide 61640.97 H Total Protein 6.3 L Albumin 2.3 L Stool Occult Blood 08/14/16 07:55 WBC RBC Hgb Hct MCV MCHC RDW Plt Count MPV Neutrophils % Lymphocytes % Monocytes % Eosinophils % Basophils % INR Sodium Potassium Chloride Carbon Dioxide Anion Gap BUN Creatinine Creat Clearance w eGFR Random Glucose Lactic Acid 1.712 Calcium Magnesium Total Bilirubin AST ALT Alkaline Phosphatase B-Natriuretic Peptide Total Protein Albumin Stool Occult Blood Active Medications Generic Name Dose Route Start Last Admin Trade Name Freq PRN Reason Stop Dose Admin Acetaminophen 650 mg 08/13/16 17:15 Tylenol - PO Q6H PRN FEVER OR PAIN Albuterol Sulfate 1 amp 08/14/16 18:00 Ventolin 0.083% Nebulizer Soln - NEB QIDR [facility] Atorvastatin Calcium 10 mg 08/13/16 22:00 08/13/16 22:23 Lipitor - PO 10 mg HS [facility] Administration Chlorhexidine Gluconate 1 applic 08/13/16 22:00 08/13/16 22:25 Hibiclens For Decolonization - TP 1 applic HS [facility] Administration Famotidine/Sodium Chloride 50 mls @ 100 mls/hr 08/14/16 22:00 Pepcid 20 Mg Premixed Ivpb - IVPB BID [facility] Methylprednisolone Sodium Succinate 40 mg 08/14/16 11:45 Solu-Medrol - IVPB BID [facility] Mupirocin 1 applic 08/13/16 22:00 08/14/16 09:55 Bactroban Ointment (For Decolonization) - NS 08/18/16 21:59 1 applic BID [facility] Administration Nicotine 14 mg 08/13/16 21:00 08/14/16 09:54 Nicoderm Patch - TD 14 mg DAILY [facility] Administration ASSESSMENT/PLAN: Respiratory dostress colud be due COPD excerbration and anemia less likely from chf on duoneb neb, on oxygen on solumedrol 40 bid keep spo2 > 90 keep hb> 8 monitor vitals monitor intake output nicotine patch. severe microcytic anemia transfuse pack cell keep hb> 8 follow iron studies stool occult negative H/o CHF with sever LV dysfunction. stable no crackels, no pedal edema daily weight monitor intake output cardiology on case Lactic acidosis improved h/o copd on duoneb and solumedrol smoking cessation manjinder on ckd could be prerenal avoid nephrotoxic drugs monitor creatnine cr decreased from 1.9 to 1.7 h/o CAD CABG in 2006 trop i negative cardiology on case h/o CVA with right side weakness aspirin and plavix on hold in view of anemia fluid : orally allowed electrolyte; repeat in pm nutrition: clear liquid dvt pro: b/l scd gi pro: pepcid dispo: transfer to tele Visit type - Emergency Visit Emergency Visit: Yes ED Registration Date: 08/13/16 Care time: The patient presented to the Emergency Department on the above date and was hospitalized for further evaluation of their emergent condition. - New Patient This patient is new to me today: Yes Date on this admission: 08/14/16 - Critical Care Critical Care patient: Yes Total Critical Care Time (in minutes): 45 Critical Care Statement: The care of this patient involved high complexity decision making to prevent further life threatening deterioration of the patient 's condition and/or to evalute & treat vital organ system(s) failure or risk of failure. <Frank Stuart - Last Filed: 08/17/16 08:54> Physical Exam: SUBJECTIVE: Patient seen and examined OBJECTIVE: Vital Signs Period Temp Pulse Resp BP Sys/Vega Pulse Ox Last 24 Hr 98.1 F-98.9 F 88-98 15-19 103-124/63-89 94-99 GENERAL: The patient is awake, alert, and fully oriented, in no acute distress. HEAD: Normal with no signs of trauma. EYES: PERRL, extraocular movements intact, sclera anicteric, conjunctiva clear. No ptosis. ENT: Ears normal, nares patent, oropharynx clear without exudates, moist mucous membranes. NECK: Trachea midline, full range of motion, supple. LUNGS: Breath sounds equal, clear to auscultation bilaterally, no wheezes, no crackles, no accessory muscle use. HEART: Regular rate and rhythm, S1, S2 without murmur, rub or gallop. ABDOMEN: Soft, nontender, nondistended, normoactive bowel sounds, no guarding, no rebound, no hepatosplenomegaly, no masses. EXTREMITIES: 2+ pulses, warm, well-perfused, no edema. NEUROLOGICAL: Cranial nerves II through XII grossly intact. Normal speech, gait not observed. PSYCH: Normal mood, normal affect. SKIN: Warm, dry, normal turgor, no rashes or lesions noted Laboratory Results - last 24 hr 08/16/16 08/16/16 08/17/16 20:30 20:30 05:15 WBC RBC Hgb Hct MCV MCHC RDW Plt Count MPV Sodium 146 H 147 H Potassium 4.3 4.5 Chloride 109 H 110 H Carbon Dioxide 27 27 Anion Gap 10 10 BUN 64 H 69 H Creatinine 1.5 H 1.5 H Creat Clearance w eGFR 45.50 Random Glucose 200 H D 156 H D Calcium 8.1 L 8.3 L Total Bilirubin 1.2 H D AST 47 H D ALT 29 D Alkaline Phosphatase 146 H B-Natriuretic Peptide 95744.44 H Cancelled Total Protein 6.7 Albumin 2.4 L 08/17/16 05:15 WBC 16.3 H D RBC 3.95 L Hgb 8.1 L Hct 27.8 L MCV 70.2 L MCHC 29.1 L RDW 24.1 H Plt Count 248 MPV 8.9 Sodium Potassium Chloride Carbon Dioxide Anion Gap BUN Creatinine Creat Clearance w eGFR Random Glucose Calcium Total Bilirubin AST ALT Alkaline Phosphatase B-Natriuretic Peptide Total Protein Albumin Active Medications Generic Name Dose Route Start Last Admin Trade Name Freq PRN Reason Stop Dose Admin Acetaminophen 650 mg 08/15/16 08:06 Tylenol - PO Q6H PRN FEVER OR PAIN Albuterol Sulfate 1 amp 08/16/16 12:30 08/17/16 06:42 Ventolin 0.083% Nebulizer Soln - NEB 1 amp QIDR [facility] Administration Ascorbic Acid 500 mg 08/16/16 10:00 08/16/16 09:32 Vitamin C - PO 500 mg DAILY [facility] Administration Atorvastatin Calcium 10 mg 08/15/16 22:00 08/16/16 22:11 Lipitor - PO 10 mg HS [facility] Administration Chlorhexidine Gluconate 1 applic 08/15/16 22:00 08/16/16 22:10 Hibiclens For Decolonization - TP 1 applic HS [facility] Administration Ferrous Sulfate 325 mg 08/16/16 10:00 08/16/16 09:30 Feosol - PO 325 mg DAILY [facility] Administration Furosemide 80 mg 08/17/16 06:00 08/17/16 05:52 Lasix Injection - IVPUSH 80 mg BIDLASIX [facility] Administration Famotidine/Sodium Chloride 50 mls @ 100 mls/hr 08/15/16 10:00 08/16/16 22:11 Pepcid 20 Mg Premixed Ivpb - IVPB 100 mls/hr BID [facility] Administration Methylprednisolone Sodium Succinate 40 mg 08/17/16 10:00 Solu-Medrol - IVPB DAILY [facility] Mupirocin 1 applic 08/15/16 10:00 08/16/16 22:10 Bactroban Ointment (For Decolonization) - NS 08/18/16 21:59 1 applic BID [facility] Administration Polyethylene Glycol 17 gm 08/16/16 10:00 08/16/16 10:33 Miralax (For Daily Use) - PO 17 grams DAILY [facility] Administration ASSESSMENT/PLAN:
[2016-08-14] MEDS: methylPREDNISolone NA SUCC 40 MG/1 ML VIAL IVPB SCH ×2 (15:27→21:07)
[2016-08-14] MEDS: ALBUTEROL SO4 0.083% IH SOL 2.5 MG/3 ML VIAL.NEB. NEB SCH ×2 (16:50→23:20)
[2016-08-14] MEDS: ATORVASTATIN CA 10 MG TABLET (FP) PO SCH (21:07)
[2016-08-14] MEDS: CHLORHEXIDINE GLUCONATE 4% CLEANSER FOR DECOLONIZATION TP SCH (21:07)
[2016-08-14] MEDS ORDERED: FAMOTIDINE 20 MG/50 ML IVPB 50 ML IVPB SCH (22:00)
[2016-08-14 22:12] LABS: MCH 20.1 pg (25.7-33.7); MEAN CELL VOLUME 69.2 fl (80-96); MEAN PLT VOLUME 8.8 fl (7.5-11.1); PLATELET COUNT 267 K/MM3 (134-434); RDW 23.9 % (11.9-15.9); WHITE BLOOD COUNT 11.4 K/mm3 (4.0-10.0)
[2016-08-14 22:42] LABS: ALBUMIN 2.2 g/dl (3.4-5.0); CALCIUM 7.7 mg/dL (8.5-10.1); COCKROFT - GAULT 38.63; CREATININE 1.6 mg/dL (0.7-1.3)
[2016-08-14 22:44] LABS: TOT PROT 6.6 g/dl (6.4-8.2)
[2016-08-15 06:06] LABS: SERUM IRON 15 ug/dL (38-169); TOTAL IRON BINDING CAPACITY 305 ug/dL (250-450); UIBC 290 ug/dL (111-343)
[2016-08-15 06:10] LABS: BASOPHIL 0.1 % (0-2.0); MCH 20.1 pg (25.7-33.7); MCHC 29.2 g/dl (32.0-35.9); MEAN CELL VOLUME 68.9 fl (80-96); MEAN PLT VOLUME 8.8 fl (7.5-11.1); NEUTROPHILS 93.4 % (42.8-82.8); PLATELET COUNT 255 K/MM3 (134-434); RDW 24.1 % (11.9-15.9); WHITE BLOOD COUNT 8.9 K/mm3 (4.0-10.0)
[2016-08-15] MEDS: ALBUTEROL SO4 0.083% IH SOL 2.5 MG/3 ML VIAL.NEB. NEB SCH ×3 (06:25→17:34)
[2016-08-15 06:42] LABS: ALBUMIN 2.2 g/dl (3.4-5.0); BILIRUBIN,TOTAL 1.8 mg/dL (0.2-1.0); CALCIUM 7.9 mg/dL (8.5-10.1); COCKROFT - GAULT 40.85; CREATININE 1.5 mg/dL (0.7-1.3); TOT PROT 6.5 g/dl (6.4-8.2)
[2016-08-15 07:37] LABS: ANISOCYTOSIS 3+; HYPOCHROMIA 2+; MICROCYTOSIS 3+
[2016-08-15] MEDS: POTASSIUM CHLORIDE TABS 20 MEQ TABLET.ER (FP) PO SCH ×2 (07:58→13:00)
[2016-08-15] MEDS ORDERED: ACETAMINOPHEN 325 MG TABLET (FP) PO PRN (08:06)
--- NOTE | 2016-08-15 08:21 | EKG ---
Test Reason : Blood Pressure : / mmHG Vent. Rate : 078 BPM Atrial Rate : 078 BPM P-R Int : 196 ms QRS Dur : 164 ms QT Int : 504 ms P-R-T Axes : 000 220 059 degrees QTc Int : 574 ms Atrial-sensed ventricular-paced rhythm WITH OCCASIONAL AV dual-paced complexes AND WITH OCCASIONAL sinus complexes Biventricular pacemaker detected ABNORMAL ECG WHEN COMPARED WITH ECG OF 08-FEB-2014 18:02, VENT. RATE HAS DECREASED BY 40 BPM Confirmed by JANINA MALONE MD ([id number]) on 08/15/2016 8:21:07 AM Referred By: Confirmed By:JANINA MALONE MD
[2016-08-15] MEDS: FAMOTIDINE 20 MG/50 ML IVPB 50 ML IVPB SCH ×2 (09:02→21:52)
[2016-08-15] MEDS: methylPREDNISolone NA SUCC 40 MG/1 ML VIAL IVPB SCH ×2 (09:03→21:53)
[2016-08-15] MEDS: MUPIROCIN 2% TOPICAL OINTMENT FOR DECOLONIZATION NS SCH ×2 (09:04→21:52)
[2016-08-15] MEDS ORDERED: PT OWN MED DRAWER 7, Y5N ONE (09:05)
[2016-08-15] MEDS: NICOTINE 14 MG/24 HOURS TOPICAL PATCH TD SCH (09:06)
--- NOTE | 2016-08-15 10:15 | PN ---
Progress Note, Physician Chief Complaint: s/p 1 more unit PRBC- total 2 units still has pain in left knee, but better than yesterday - he straightens the knee today had a bm today- non bloody No abd pain No SOB - Current Medication List Current Medications: Active Medications Acetaminophen (Tylenol -) 650 mg PO Q6H PRN PRN Reason: FEVER OR PAIN Albuterol Sulfate (Ventolin 0.083% Nebulizer Soln -) 1 amp NEB QIDR [facility] Atorvastatin Calcium (Lipitor -) 10 mg PO HS [facility] Chlorhexidine Gluconate (Hibiclens For Decolonization -) 1 applic TP HS [facility] Famotidine/Sodium Chloride (Pepcid 20 Mg Premixed Ivpb -) 50 mls @ 100 mls/hr IVPB BID [facility] Last Admin: 08/15/16 09:02 Dose: 100 mls/hr Methylprednisolone Sodium Succinate (Solu-Medrol -) 40 mg IVPB BID [facility] Last Admin: 08/15/16 09:03 Dose: 40 mg Mupirocin (Bactroban Ointment (For Decolonization) -) 1 applic NS BID [facility] Stop: 08/18/16 21:59 Last Admin: 08/15/16 09:04 Dose: 1 applic Nicotine (Nicoderm Patch -) 14 mg TD DAILY [facility] Last Admin: 08/15/16 09:06 Dose: 14 mg Potassium Chloride (K-Dur -) 40 meq PO Q6H [facility] Stop: 08/15/16 13:31 Last Admin: 08/15/16 07:58 Dose: 40 meq - Objective Vital Signs: Vital Signs Temperature 98.0 F 08/15/16 06:00 Pulse Rate 87 08/15/16 08:00 Respiratory Rate 18 08/15/16 09:00 Blood Pressure 97/64 08/15/16 08:00 O2 Sat by Pulse Oximetry (%) 98 08/14/16 20:01 Constitutional: Yes: No Distress, Calm Cardiovascular: Yes: Regular Rate and Rhythm, Murmur Respiratory: Yes: CTA Bilaterally Gastrointestinal: Yes: Normal Bowel Sounds, Soft, Abdomen, Obese. No: Distention, Tenderness Extremities: Yes: Other (left knee warm and tender) Edema: No Labs: CBC, BMP 08/15/16 05:20 08/15/16 06:00 INR, PTT INR 1.66 (0.82-1.09) H 08/14/16 07:55 Problem List - Problems (1) Anemia Code(s): D64.9 - ANEMIA, UNSPECIFIED Qualifiers: Anemia type: unspecified type Qualified Code(s): D64.9 - Anemia, unspecified (2) CHF (congestive heart failure) Code(s): I50.9 - HEART FAILURE, UNSPECIFIED Qualifiers: Congestive heart failure type: combined Congestive heart failure chronicity: acute on chronic Qualified Code(s): I50.43 - Acute on chronic combined systolic (congestive) and diastolic (congestive) heart failure (3) CKD (chronic kidney disease) Code(s): N18.9 - CHRONIC KIDNEY DISEASE, UNSPECIFIED Qualifiers: Chronic kidney disease stage: unspecified stage Qualified Code(s): N18.9 - Chronic kidney disease, unspecified (4) Hypotension Code(s): I95.9 - HYPOTENSION, UNSPECIFIED (5) CHF exacerbation Code(s): I50.9 - HEART FAILURE, UNSPECIFIED (6) COPD (chronic obstructive pulmonary disease) Code(s): J44.9 - CHRONIC OBSTRUCTIVE PULMONARY DISEASE, UNSPECIFIED Assessment/Plan PLAN S/p 2 units PRBC stool guaic- negative No blood in diapers renal function better pt does not appear to be in distress or in volume overload-- received Lasix yesterday diet advanced xray of knee negative Sono abdomen-- ascites, cirrhosis Protonix DVT prophylaxis- -SCD
--- NOTE | 2016-08-15 11:41 | PN ---
Teaching Attending Note Name of Resident: Lennox Laura ATTENDING PHYSICIAN STATEMENT I saw and evaluated the patient. I reviewed the resident's note and discussed the case with the resident. I agree with the resident's findings and plan as documented. SUBJECTIVE: Pt seen and examined in the ICU. Denies chest pain or shortness of breath. No bleeding events. No fevers or chills. OBJECTIVE: Last Vital Signs Temp Pulse Resp BP Pulse Ox 98.1 F 94 H 18 105/69 96 08/15/16 10:00 08/15/16 10:20 08/15/16 10:00 08/15/16 10:00 08/15/16 10:20 Intake & Output 08/12/16 08/13/16 08/14/16 08/15/16 23:59 23:59 23:59 23:59 Intake Total 350 350 50 Balance 350 350 50 Weight 148 lb 9.465 oz 153 lb 4.8 oz 152 lb Gen: mildly tachypneic with speaking Heart: RRR Lung: decreased breath sounds at the bases Abd: soft, nontender Ext: + edema CBC, BMP 08/15/16 05:20 08/15/16 06:00 Active Medications Acetaminophen (Tylenol -) 650 mg PO Q6H PRN PRN Reason: FEVER OR PAIN Albuterol Sulfate (Ventolin 0.083% Nebulizer Soln -) 1 amp NEB QIDR [facility] Atorvastatin Calcium (Lipitor -) 10 mg PO HS [facility] Chlorhexidine Gluconate (Hibiclens For Decolonization -) 1 applic TP HS [facility] Famotidine/Sodium Chloride (Pepcid 20 Mg Premixed Ivpb -) 50 mls @ 100 mls/hr IVPB BID [facility] Last Admin: 08/15/16 09:02 Dose: 100 mls/hr Methylprednisolone Sodium Succinate (Solu-Medrol -) 40 mg IVPB BID [facility] Last Admin: 08/15/16 09:03 Dose: 40 mg Mupirocin (Bactroban Ointment (For Decolonization) -) 1 applic NS BID [facility] Stop: 08/18/16 21:59 Last Admin: 08/15/16 09:04 Dose: 1 applic Nicotine (Nicoderm Patch -) 14 mg TD DAILY [facility] Last Admin: 08/15/16 09:06 Dose: 14 mg Potassium Chloride (K-Dur -) 40 meq PO Q6H [facility] Stop: 08/15/16 13:31 Last Admin: 08/15/16 07:58 Dose: 40 meq ASSESSMENT AND PLAN: Acute Respiratory Distress resolving Acute COPD Exacerbation Severe LV Systolic Dysfunction Lactic Acidosis resolved Anemia s/p PRBC transfusions Acute on Chronic Renal Failure CAD s/p CABG - lasix as needed - monitor urine output, creatinine - beta alondra per cardiology - LAZARO-I/ARB when renal function stabilizes - monitor H/H - continue empiric steroids - inhaled bronchodilators - replete lytes - DVT/GI prophylaxis - can monitor telemetry
--- NOTE | 2016-08-15 13:38 | PN ---
Addendum entered and electronically signed by Lennox Laura, ANA MARIA 08/15/16 13:47 : start reno inhibitors once renal function is stable consider beta alondra diet increased to soft diet Original Note: Physical Exam: SUBJECTIVE: Patient seen and examined feels better denies pain in chest, sob, lightheadedness, dizziness. no blood in stool. usg shows cirrhotic lives wit ascities hypokalemia, giving him jcl cr decreased to 1.5 Hb 7.9 OBJECTIVE: Vital Signs Period Temp Pulse Resp BP Sys/Vega Pulse Ox Last 24 Hr 98.0 F-99 F 85-96 18-24 95-105/31-79 96-98 GENERAL: The patient is awake, alert, and fully oriented, in no acute distress. HEAD: Normal with no signs of trauma. EYES: PERRL, ENT: dry mucous membranes. LUNGS: Breath sounds equal, clear to auscultation bilaterally, wheezes present, no crackles, no accessory muscle use. HEART: s1s2 normal. ABDOMEN: Soft, nontender, nondistended, normoactive bowel sounds, no guarding, no rebound, EXTREMITIES: well-perfused, no edema. left knee tenderness. PSYCH: Normal mood, normal affect. SKIN: Warm, dry, Laboratory Results - last 24 hr 08/14/16 08/14/16 08/15/16 21:30 21:30 05:20 WBC 11.4 H 8.9 RBC 3.88 L 3.92 L Hgb 7.8 L D 7.9 L Hct 26.8 L 27.0 L MCV 69.2 L 68.9 L MCHC 29.0 L 29.2 L RDW 23.9 H 24.1 H Plt Count 267 255 MPV 8.8 8.8 Neutrophils % 93.4 H D Lymphocytes % 5.7 L D Monocytes % 0.8 L D Eosinophils % 0.0 D Basophils % 0.1 Hypochromic-Microcytic 2+ Anisocytosis 3+ Microcytosis 3+ Sodium 145 Potassium 3.3 L Chloride 109 H Carbon Dioxide 24 Anion Gap 12 BUN 57 H Creatinine 1.6 H Creat Clearance w eGFR 42.24 Random Glucose 213 H D Calcium 7.7 L Total Bilirubin 2.0 H AST 18 ALT 15 Alkaline Phosphatase 142 H Total Protein 6.6 Albumin 2.2 L 08/15/16 06:00 WBC RBC Hgb Hct MCV MCHC RDW Plt Count MPV Neutrophils % Lymphocytes % Monocytes % Eosinophils % Basophils % Hypochromic-Microcytic Anisocytosis Microcytosis Sodium 148 H Potassium 3.4 L Chloride 111 H Carbon Dioxide 25 Anion Gap 12 BUN 54 H Creatinine 1.5 H Creat Clearance w eGFR 45.50 Random Glucose 172 H Calcium 7.9 L Total Bilirubin 1.8 H AST 17 ALT 13 Alkaline Phosphatase 140 H Total Protein 6.5 Albumin 2.2 L Active Medications Generic Name Dose Route Start Last Admin Trade Name Freq PRN Reason Stop Dose Admin Acetaminophen 650 mg 08/15/16 08:06 Tylenol - PO Q6H PRN FEVER OR PAIN Albuterol Sulfate 1 amp 08/15/16 12:00 08/15/16 11:56 Ventolin 0.083% Nebulizer Soln - NEB Not Given QIDR [facility] Atorvastatin Calcium 10 mg 08/15/16 22:00 Lipitor - PO HS [facility] Chlorhexidine Gluconate 1 applic 08/15/16 22:00 Hibiclens For Decolonization - TP HS [facility] Famotidine/Sodium Chloride 50 mls @ 100 mls/hr 08/15/16 10:00 08/15/16 09:02 Pepcid 20 Mg Premixed Ivpb - IVPB 100 mls/hr BID [facility] Administration Methylprednisolone Sodium Succinate 40 mg 08/15/16 10:00 08/15/16 09:03 Solu-Medrol - IVPB 40 mg BID [facility] Administration Mupirocin 1 applic 08/15/16 10:00 08/15/16 09:04 Bactroban Ointment (For Decolonization) - NS 08/18/16 21:59 1 applic BID [facility] Administration Nicotine 14 mg 08/15/16 10:00 08/15/16 09:06 Nicoderm Patch - TD 14 mg DAILY [facility] Administration ASSESSMENT/PLAN: Respiratory dostress colud be due COPD excerbration and anemia less likely from chf wheezing improved on duoneb neb, on oxygen on solumedrol 40 bid keep spo2 > 90 hb 7.9 s/p blood transfusion monitor vitals monitor intake output nicotine patch. severe microcytic anemia hb 7.9 follow iron studies stool occult negative H/o CHF with sever LV dysfunction. stable daily weight monitor intake output cardiology on case Lactic acidosis improved h/o copd on duoneb and solumedrol smoking cessation on nicotine patch manjinder on ckd could be prerenal avoid nephrotoxic drugs monitor creatnine cr decreased from 1.9 to 1.5 h/o CAD CABG in 2006 trop i negative cardiology on case aspirin and plavix on hold in view of anemia h/o CVA with right side weakness aspirin and plavix on hold in view of anemia fluid : orally allowed electrolyte; hypokalemia, kcl given, repeat in evening nutrition: clear liquid dvt pro: b/l scd gi pro: pepcid dispo: transfer to tele Visit type - Emergency Visit Emergency Visit: Yes ED Registration Date: 08/13/16 Care time: The patient presented to the Emergency Department on the above date and was hospitalized for further evaluation of their emergent condition. - New Patient This patient is new to me today: No - Critical Care Critical Care patient: Yes Total Critical Care Time (in minutes): 45 Critical Care Statement: The care of this patient involved high complexity decision making to prevent further life threatening deterioration of the patient 's condition and/or to evalute & treat vital organ system(s) failure or risk of failure.
--- NOTE | 2016-08-15 18:42 | PN ---
Progress Note (short form) - Note Progress Note: CC: anemia S: no cp, palps, dizziness. energy improved s/p tranfusion. mild sob. Current Medications Acetaminophen (Tylenol -) 650 mg PO Q6H PRN PRN Reason: FEVER OR PAIN Albuterol Sulfate (Ventolin 0.083% Nebulizer Soln -) 1 amp NEB QIDR [facility] Last Admin: 08/15/16 17:34 Dose: 1 amp Atorvastatin Calcium (Lipitor -) 10 mg PO HS [facility] Chlorhexidine Gluconate (Hibiclens For Decolonization -) 1 applic TP HS [facility] Famotidine/Sodium Chloride (Pepcid 20 Mg Premixed Ivpb -) 50 mls @ 100 mls/hr IVPB BID [facility] Last Admin: 08/15/16 09:02 Dose: 100 mls/hr Methylprednisolone Sodium Succinate (Solu-Medrol -) 40 mg IVPB BID [facility] Last Admin: 08/15/16 09:03 Dose: 40 mg Mupirocin (Bactroban Ointment (For Decolonization) -) 1 applic NS BID [facility] Stop: 08/18/16 21:59 Last Admin: 08/15/16 09:04 Dose: 1 applic Nicotine (Nicoderm Patch -) 14 mg TD DAILY [facility] Last Admin: 08/15/16 09:06 Dose: 14 mg Vital Signs Period Temp Pulse Resp BP Sys/Vega Pulse Ox Last 24 Hr 98.0 F-99 F 84-95 17-20 92-105/31-79 96-98 Intake & Output 08/13/16 08/14/16 08/15/16 08/16/16 07:59 07:59 07:59 07:59 Intake Total 350 400 410 Balance 350 400 410 Weight 217 lb 2.485 oz 152 lb Constitutional: Yes: Well Nourished, No Distress Eyes: No: Sclera Icterus HENT: No: Nasal Congestion Neck: No: Decreased ROM Respiratory: Yes: diffuse rhonchi/wheezes No: Accessory Muscle Use, Wheezes Gastrointestinal: Yes: Normal Bowel Sounds. No: Distention, Hepatomegaly, Palpable Mass, Tenderness Cardiovascular: Yes: Regular Rate and Rhythm (soft heart sounds) JVD: Yes Carotid Bruit: No PMI: Displaced Heart Sounds: Yes: S1, S2. No: Gallop Murmur: 2/6 high pitched sys murmur at lsb and apex Musculoskeletal: Yes: Other (No kyphosis) Extremities: No: Cold, Cyanosis Edema: no Peripheral Pulses: 2+ Left Carotid, 2+ Right Carotid, diminished dp/pt Integumentary: No: Jaundice Neurological: Yes: Alert, Oriented (x3) Psychiatric: No: Agitated - Other Data Labs, Other Data: CBC, BMP 08/15/16 05:20 08/15/16 06:00 Laboratory Tests 08/15/16 06:00 Total Bilirubin 1.8 H AST 17 ALT 13 Alkaline Phosphatase 140 H Albumin 2.2 L tele: v-paced with intermittent Sinus beats vs. pvc. frequent nsvt EKG: biv-pacing with sinus beat vs. pvc Abd u/a: moderate amount of ascites in upper abdomen. Liver and spleen findings c/w cirrhosis. cath 08/02 all grafts patent (self to lad, svg to lcx, svg to rpda) echo 07/2015: sev lve, sev reduced lvef (global). grade 2 diastolic dysfunction. nl RV. mild connie. dilated ivc. mod mr, mod-sev tr, sev phtn, mild pr. Echo 08/03: sev LVE with severe decr EF; mild RV dil with moderate hypo; mod MR/ TR; RVSP >60 Imaging - Results Chest X-ray: Report and images Reviewed: Report - central congestive changes. my review - CM, likely small bilateral pleural effusions, pulmonary edema. Assessment/Plan 76 yo recent smoker (quit 6 mo ago) with h/o CAD s/p CABG, ischemic CM with EF 25% s/p BiVICD with secondary severe pulmonary hypertension, prior CVA, HL, copd, CKD, bph, chronic iron deficiency anemia who p/w worsened cough, sob, hypotension and noted to have profound anemia. Pre-operative clearance/anemia. - RCRI of 3. Has estimated high risk for jd-operative CV complications. Would optimize cardiac/pulmonary status over the next 24 hours if safe to delay endoscopy. still with significant wheezes on exam, unclear if cardiac vs. pulmonary. isch CMP (acute HF exacerbation) - s/p BiVICD --> routine outpatient monitoring. Last checked this month. Occasional brief nsvt noted on prior checks. - Patient's weight actually stable as outpatient in past month. Possible pulmonary congestion on CXR. ddx infection. trace le edema. After lasix 80 mg IV in ER last night, cr improved, but sodium worsened. Now s/p 2 units of PRBC and lasix 40 mg IV x 1 yesterday 08/14 with improvement in sodium, worsened again overnight. - 08/15: Patient overall comfortable. Unable to accurately assess I/O's, weights --> holding diuresis today so that he will definitively be net positive tomorrow and can reassess hypernatremia tomorrow and hepatic congestion. If worsens then will resume IV lasix. Patient with significant rhonchi and wheezes on exam. Also with moderate ascites on u/s. Frequent nsvt on tele. These findings remain concerning for heart failure exacerbation. Will repeat cxr in am. Echo. Replete electrolytes. Reluctant to add beta alondra while with active wheezes and unclear if he is decompensated. If needed overnight can start short acting low dose metoprolol. - not on bb, aceI at home due to prior side effects of hypotension, dizziness. - Unable to collect accurate I/O, weights here because per nursing pt incontinent. no standing weights available. If possible would continue to recommend strict i/o's. standing weights. CAD s/p h/o CABG 2006 - holding ASA, plavix. If anti-platelets can be resumed, would consider resuming just ASA. Currently not clear that he has a hard indication for plavix. - no angina. ekg v-paced, troponins neg x 1 h/o CVA details not clear from prior notes; not on AC, On ASA, plavix --> on hold as above. NSVT - having frequent nsvt. Seen on prior ICD checks. - electrolyte repletion prn. - con't telemetry monitoring. Monitor with improvement with treatment of underlying conditions. PAT - no recurrence on recent ICD check. COPD as disc'd. per PMD +/- pulm
--- NOTE | 2016-08-15 19:58 | PN ---
GI Progress Note Subjective: No acute events No overt bleeding Denies abdominal Was coughing when i evaluated him. he says that he has had a cough for 8 days - Objective Vital Signs: Vital Signs Temperature 98.7 F 08/15/16 14:00 Pulse Rate 93 H 08/15/16 18:00 Respiratory Rate 17 08/15/16 18:00 Blood Pressure 104/69 08/15/16 18:00 O2 Sat by Pulse Oximetry (%) 96 08/15/16 10:20 Constitutional: Calm Eyes: No: Sclera Icterus Cardiovascular: Yes: Regular Rate and Rhythm Respiratory: Yes: Rhonchi (through lung garcia bilaterally) Gastrointestinal Inspection: No: Ascites ...Auscultate: Yes: Normoactive Bowel Sounds ...Palpate: No: Tenderness ...Percussion: No: Tympanitic Neurological: Yes: Alert Labs: CBC, BMP 08/15/16 05:20 08/15/16 06:00 INR, PTT INR 1.66 (0.82-1.09) H 08/14/16 07:55 iron saturation 5% Problem List - Problems (1) Anemia Assessment/Plan: No overt bleeding and was guaiac negative on exam Considered high risk from cardiology standpoint and being optimized by surgery. He is also wheezing this evening with rhonci throughout the lung garcia. Decision from family regarding their wishes in terms of invasive types of care need to be clarified Iron supplementation along with Vitamin C and MiraLAX 17g daily Ordered CXR and discussed pulmonary findings with Mr. Crooks's nurse H2 Mikie Code(s): D64.9 - ANEMIA, UNSPECIFIED Qualifiers: Anemia type: unspecified type Qualified Code(s): D64.9 - Anemia, unspecified
--- NOTE | 2016-08-15 21:33 | PN ---
Progress Note (short form) - Note Progress Note: CBC, BMP 08/15/16 05:20 08/15/16 06: Active Medications Acetaminophen (Tylenol -) 650 mg PO Q6H PRN PRN Reason: FEVER OR PAIN Albuterol Sulfate (Ventolin 0.083% Nebulizer Soln -) 1 amp NEB QIDR [facility] Last Admin: 08/15/16 17:34 Dose: 1 amp Atorvastatin Calcium (Lipitor -) 10 mg PO HS [facility] Chlorhexidine Gluconate (Hibiclens For Decolonization -) 1 applic TP HS [facility] Famotidine/Sodium Chloride (Pepcid 20 Mg Premixed Ivpb -) 50 mls @ 100 mls/hr IVPB BID [facility] Last Admin: 08/15/16 09:02 Dose: 100 mls/hr Methylprednisolone Sodium Succinate (Solu-Medrol -) 40 mg IVPB BID [facility] Last Admin: 08/15/16 09:03 Dose: 40 mg Mupirocin (Bactroban Ointment (For Decolonization) -) 1 applic NS BID [facility] Stop: 08/18/16 21:59 Last Admin: 08/15/16 09:04 Dose: 1 applic Nicotine (Nicoderm Patch -) 14 mg TD DAILY [facility] Last Admin: 08/15/16 09:06 Dose: 14 mg a/p
[2016-08-15] MEDS: ATORVASTATIN CA 10 MG TABLET (FP) PO SCH (21:52)
[2016-08-15] MEDS: CHLORHEXIDINE GLUCONATE 4% CLEANSER FOR DECOLONIZATION TP SCH (21:52)
[2016-08-16] MEDS: ALBUTEROL SO4 0.083% IH SOL 2.5 MG/3 ML VIAL.NEB. NEB SCH ×5 (00:11→23:34)
[2016-08-16 06:09] LABS: BASOPHIL 0.2 % (0-2.0); MCHC 28.2 g/dl (32.0-35.9); MEAN CELL VOLUME 70.8 fl (80-96); MEAN PLT VOLUME 8.6 fl (7.5-11.1); NEUTROPHILS 92.3 % (42.8-82.8); PLATELET COUNT 254 K/MM3 (134-434); RDW 24.1 % (11.9-15.9); WHITE BLOOD COUNT 12.2 K/mm3 (4.0-10.0)
[2016-08-16 06:20] LABS: MCH 19.9 pg (25.7-33.7)
[2016-08-16 06:32] LABS: ALBUMIN 2.4 g/dl (3.4-5.0); BILIRUBIN,TOTAL 1.6 mg/dL (0.2-1.0); CALCIUM 8.5 mg/dL (8.5-10.1); COCKROFT - GAULT 38.3; CREATININE 1.6 mg/dL (0.7-1.3); MAGNESIUM 2.7 mg/dL (1.8-2.4); TOT PROT 6.9 g/dl (6.4-8.2)
[2016-08-16] MEDS ORDERED: ALBUTEROL SO4 0.083% IH SOL 2.5 MG/3 ML VIAL.NEB. NEB PRN (07:19)
[2016-08-16] MEDS: ALBUTEROL SO4 2.5/IPRATROPIUM 0.5 INH SOL 3 ML VIAL.NEB. NEB SCH ×2 (07:30→11:46)
[2016-08-16] MEDS: NICOTINE 14 MG/24 HOURS TOPICAL PATCH TD SCH (09:27)
[2016-08-16] MEDS: FERROUS SO4 325 MG TABLET (FP) PO SCH (09:30)
[2016-08-16] MEDS: MUPIROCIN 2% TOPICAL OINTMENT FOR DECOLONIZATION NS SCH ×2 (09:31→22:10)
[2016-08-16] MEDS: ASCORBIC ACID 500 MG TABLET (FP) PO SCH (09:32)
[2016-08-16] MEDS: FAMOTIDINE 20 MG/50 ML IVPB 50 ML IVPB SCH ×2 (09:32→22:11)
[2016-08-16] MEDS: methylPREDNISolone NA SUCC 40 MG/1 ML VIAL IVPB SCH (09:37)
--- NOTE | 2016-08-16 09:42 | PN ---
Progress Note, Physician Chief Complaint: pt is coughing no SOB he looks comfortable had bm yesterday weight loss noted - Current Medication List Current Medications: Active Medications Acetaminophen (Tylenol -) 650 mg PO Q6H PRN PRN Reason: FEVER OR PAIN Albuterol Sulfate (Ventolin 0.083% Nebulizer Soln -) 1 amp NEB Q6H PRN PRN Reason: ASTHMA Albuterol/Ipratropium (Duoneb -) 1 amp NEB QIDR [facility] Last Admin: 08/16/16 07:30 Dose: Not Given Ascorbic Acid (Vitamin C -) 500 mg PO DAILY [facility] Last Admin: 08/16/16 09:32 Dose: 500 mg Atorvastatin Calcium (Lipitor -) 10 mg PO [facility] Last Admin: 08/15/16 21:52 Dose: 10 mg Chlorhexidine Gluconate (Hibiclens For Decolonization -) 1 applic TP [facility] Last Admin: 08/15/16 21:52 Dose: 1 applic Ferrous Sulfate (Feosol -) 325 mg PO DAILY [facility] Last Admin: 08/16/16 09:30 Dose: 325 mg Famotidine/Sodium Chloride (Pepcid 20 Mg Premixed Ivpb -) 50 mls @ 100 mls/hr IVPB BID [facility] Last Admin: 08/16/16 09:32 Dose: 100 mls/hr Methylprednisolone Sodium Succinate (Solu-Medrol -) 40 mg IVPB BID [facility] Last Admin: 08/16/16 09:37 Dose: 40 mg Mupirocin (Bactroban Ointment (For Decolonization) -) 1 applic NS BID [facility] Stop: 08/18/16 21:59 Last Admin: 08/16/16 09:31 Dose: 1 applic Nicotine (Nicoderm Patch -) 14 mg TD DAILY [facility] Last Admin: 08/16/16 09:27 Dose: 14 mg Polyethylene Glycol (Miralax (For Daily Use) -) 17 gm PO DAILY [facility] - Objective Vital Signs: Vital Signs Temperature 97.6 F 08/16/16 06:00 Pulse Rate 88 08/16/16 08:00 Respiratory Rate 12 08/16/16 08:00 Blood Pressure 96/69 08/16/16 08:00 O2 Sat by Pulse Oximetry (%) 92 L 08/16/16 08:00 Constitutional: Yes: No Distress Cardiovascular: Yes: Regular Rate and Rhythm, Murmur, Other (PPM) Respiratory: Yes: Diminished, Rhonchi Gastrointestinal: Yes: Normal Bowel Sounds, Soft, Abdomen, Obese, Distention. No: Tenderness Edema: No Psychiatric: Yes: Alert Labs: CBC, BMP 08/16/16 05:15 08/16/16 05:15 INR, PTT INR 1.66 (0.82-1.09) H 08/14/16 07:55 Problem List - Problems (1) Anemia Code(s): D64.9 - ANEMIA, UNSPECIFIED Qualifiers: Anemia type: unspecified type Qualified Code(s): D64.9 - Anemia, unspecified (2) CHF (congestive heart failure) Code(s): I50.9 - HEART FAILURE, UNSPECIFIED Qualifiers: Congestive heart failure type: combined Congestive heart failure chronicity: acute on chronic Qualified Code(s): I50.43 - Acute on chronic combined systolic (congestive) and diastolic (congestive) heart failure (3) CKD (chronic kidney disease) Code(s): N18.9 - CHRONIC KIDNEY DISEASE, UNSPECIFIED Qualifiers: Chronic kidney disease stage: unspecified stage Qualified Code(s): N18.9 - Chronic kidney disease, unspecified (4) Hypotension Code(s): I95.9 - HYPOTENSION, UNSPECIFIED (5) CHF exacerbation Code(s): I50.9 - HEART FAILURE, UNSPECIFIED (6) COPD (chronic obstructive pulmonary disease) Code(s): J44.9 - CHRONIC OBSTRUCTIVE PULMONARY DISEASE, UNSPECIFIED Assessment/Plan PLAN S/p 2 units PRBC stool guaic- negative no GI bleeding renal function same pt does not appear to be in distress or in volume overload CXR shows worsening congestion on Solumedrol Nebs as needed diet advanced H/HCT better OOB PT eval DVT prophylaxis- -SCD
[2016-08-16] MEDS: POLYETHYLENE GLYCOL 3350 119 GM BTL PO SCH (10:33)
--- NOTE | 2016-08-16 12:20 | PN ---
Teaching Attending Note Name of Resident: Lennox Laura ATTENDING PHYSICIAN STATEMENT I saw and evaluated the patient. I reviewed the resident's note and discussed the case with the resident. I agree with the resident's findings and plan as documented. SUBJECTIVE: Patient seen and examined in the ICU. Awake and alert. Denies chest pain or shortness of breath. No acute bleeding overnight. No fevers or chills. OBJECTIVE: Intake & Output 08/13/16 08/14/16 08/15/16 08/16/16 23:59 23:59 23:59 23:59 Intake Total 350 350 510 Balance 350 350 510 Weight 148 lb 9.465 oz 153 lb 4.8 oz 152 lb 148 lb 14.4 oz Last Vital Signs Temp Pulse Resp BP Pulse Ox 98.3 F 90 19 106/75 97 08/16/16 10:00 08/16/16 11:55 08/16/16 11:55 08/16/16 11:55 08/16/16 11:56 Active Medications Acetaminophen (Tylenol -) 650 mg PO Q6H PRN PRN Reason: FEVER OR PAIN Albuterol Sulfate (Ventolin 0.083% Nebulizer Soln -) 1 amp NEB Q6H PRN PRN Reason: ASTHMA Albuterol/Ipratropium (Duoneb -) 1 amp NEB QIDR [facility] Last Admin: 08/16/16 11:46 Dose: 1 amp Ascorbic Acid (Vitamin C -) 500 mg PO DAILY [facility] Last Admin: 08/16/16 09:32 Dose: 500 mg Atorvastatin Calcium (Lipitor -) [address] [facility] Last Admin: 08/15/16 21:52 Dose: 10 mg Chlorhexidine Gluconate (Hibiclens For Decolonization -) [address] [facility] Last Admin: 08/15/16 21:52 Dose: 1 applic Ferrous Sulfate (Feosol -) 325 mg PO DAILY [facility] Last Admin: 08/16/16 09:30 Dose: 325 mg Famotidine/Sodium Chloride (Pepcid 20 Mg Premixed Ivpb -) 50 mls @ 100 mls/hr IVPB BID [facility] Last Admin: 08/16/16 09:32 Dose: 100 mls/hr Methylprednisolone Sodium Succinate (Solu-Medrol -) 40 mg IVPB BID [facility] Last Admin: 08/16/16 09:37 Dose: 40 mg Mupirocin (Bactroban Ointment (For Decolonization) -) 1 applic NS BID [facility] Stop: 08/18/16 21:59 Last Admin: 08/16/16 09:31 Dose: 1 applic Nicotine (Nicoderm Patch -) 14 mg TD DAILY [facility] Last Admin: 08/16/16 09:27 Dose: 14 mg Polyethylene Glycol (Miralax (For Daily Use) -) 17 gm PO DAILY [facility] Last Admin: 08/16/16 10:33 Dose: 17 grams Gen: Awake and alert Heart: RRR Lung: Decreased breath sounds at the bases Abd: soft, nontender Ext: (+) edema Laboratory Results - last 24 hr 08/16/16 08/16/16 05:15 05:15 WBC 12.2 H D RBC 4.14 Hgb 8.3 L Hct 29.3 L MCV 70.8 L MCHC 28.2 L RDW 24.1 H Plt Count 254 MPV 8.6 Neutrophils % 92.3 H Lymphocytes % 4.2 L D Monocytes % 3.3 L D Eosinophils % 0.0 Basophils % 0.2 Sodium 147 H Potassium 4.6 D Chloride 109 H Carbon Dioxide 27 Anion Gap 11 BUN 61 H Creatinine 1.6 H Creat Clearance w eGFR 42.24 Random Glucose 161 H Calcium 8.5 Magnesium 2.7 H Total Bilirubin 1.6 H AST 30 D ALT 22 D Alkaline Phosphatase 156 H Total Protein 6.9 Albumin 2.4 L ASSESSMENT AND PLAN: Acute Respiratory Distress resolving Acute COPD Exacerbation Severe LV Systolic Dysfunction Lactic Acidosis resolved Anemia s/p PRBC transfusions Acute on Chronic Renal Failure CAD s/p CABG - monitor urine output, creatinine - beta alondra per cardiology - LAZARO-I/ARB when renal function stabilizes - monitor H/H - Taper steroids - inhaled bronchodilators (would hold anticholinergic agents for now) - DVT/GI prophylaxis - Cardiac telemetry monitoring Dr Stuart Critical care time spent reviewing chart, evaluating patient and formulating plan 35 min
--- NOTE | 2016-08-16 13:17 | RAPID ---
Physical Examination Vital Signs: Vital Signs Temperature 98.3 F 08/16/16 10:00 Pulse Rate 90 08/16/16 12:49 Respiratory Rate 19 08/16/16 12:49 Blood Pressure 105/64 08/16/16 12:49 O2 Sat by Pulse Oximetry (%) 97 08/16/16 11:56 Labs: CBC, BMP 08/16/16 05:15 08/16/16 05:15
--- NOTE | 2016-08-16 13:18 | PN ---
Addendum entered and electronically signed by Lennox Laura RES 08/16/16 17:36 : discussed with dr marie will start him on lasix 80 mg iv bid Addendum entered and electronically signed by Lennox Laura RES 08/16/16 16:02 : correction:patient has b/l crackels at bases Original Note: Physical Exam: SUBJECTIVE: Patient seen and examined feels better denies pain in chest, sob, lightheadedness, dizziness. no blood in stool. usg shows cirrhotic lives wit ascities OBJECTIVE: Vital Signs Period Temp Pulse Resp BP Sys/Vega Pulse Ox Last 24 Hr 97.6 F-98.7 F 78-95 12-19 92-117/51-76 92-99 GENERAL: The patient is awake, alert, and fully oriented, in no acute distress. HEAD: Normal with no signs of trauma. EYES: PERRL, ENT: dry mucous membranes. LUNGS: Breath sounds equal, clear to auscultation bilaterally, wheezes present, no crackles, no accessory muscle use. HEART: s1s2 normal. ABDOMEN: Soft, nontender, nondistended, normoactive bowel sounds, no guarding, no rebound, EXTREMITIES: well-perfused, no edema. left knee tenderness. PSYCH: Normal mood, normal affect. SKIN: Warm, dry, Laboratory Results - last 24 hr 08/16/16 08/16/16 05:15 05:15 WBC 12.2 H D RBC 4.14 Hgb 8.3 L Hct 29.3 L MCV 70.8 L MCHC 28.2 L RDW 24.1 H Plt Count 254 MPV 8.6 Neutrophils % 92.3 H Lymphocytes % 4.2 L D Monocytes % 3.3 L D Eosinophils % 0.0 Basophils % 0.2 Sodium 147 H Potassium 4.6 D Chloride 109 H Carbon Dioxide 27 Anion Gap 11 BUN 61 H Creatinine 1.6 H Creat Clearance w eGFR 42.24 Random Glucose 161 H Calcium 8.5 Magnesium 2.7 H Total Bilirubin 1.6 H AST 30 D ALT 22 D Alkaline Phosphatase 156 H Total Protein 6.9 Albumin 2.4 L Active Medications Generic Name Dose Route Start Last Admin Trade Name Freq PRN Reason Stop Dose Admin Acetaminophen 650 mg 08/15/16 08:06 Tylenol - PO Q6H PRN FEVER OR PAIN Albuterol Sulfate 1 amp 08/16/16 12:30 Ventolin 0.083% Nebulizer Soln - NEB QIDR [facility] Ascorbic Acid 500 mg 08/16/16 10:00 08/16/16 09:32 Vitamin C - PO 500 mg DAILY [facility] Administration Atorvastatin Calcium 10 mg 08/15/16 22:00 08/15/16 21:52 Lipitor - PO 10 mg HS [facility] Administration Chlorhexidine Gluconate 1 applic 08/15/16 22:00 08/15/16 21:52 Hibiclens For Decolonization - TP 1 applic HS [facility] Administration Ferrous Sulfate 325 mg 08/16/16 10:00 08/16/16 09:30 Feosol - PO 325 mg DAILY [facility] Administration Famotidine/Sodium Chloride 50 mls @ 100 mls/hr 08/15/16 10:00 08/16/16 09:32 Pepcid 20 Mg Premixed Ivpb - IVPB 100 mls/hr BID [facility] Administration Methylprednisolone Sodium Succinate 40 mg 08/17/16 10:00 Solu-Medrol - IVPB DAILY [facility] Mupirocin 1 applic 08/15/16 10:00 08/16/16 09:31 Bactroban Ointment (For Decolonization) - NS 08/18/16 21:59 1 applic BID [facility] Administration Polyethylene Glycol 17 gm 08/16/16 10:00 08/16/16 10:33 Miralax (For Daily Use) - PO 17 grams DAILY [facility] Administration ASSESSMENT/PLAN: Respiratory dostress colud be due COPD excerbration and anemia less likely from chf wheezing improved on albuterol neb, on oxygen on solumedrol 40mg daily keep spo2 > 90 hb 8.3 s/p blood transfusion monitor vitals monitor intake output nicotine patch. severe microcytic anemia hb 8.3 s/p transfusion follow iron studies stool occult negative H/o CHF with sever LV dysfunction. stable daily weight monitor intake output cardiology on case Lactic acidosis improved h/o copd on albuterol and solumedrol smoking cessation on nicotine patch manjinder on ckd could be prerenal avoid nephrotoxic drugs monitor creatnine h/o CAD CABG in 2006 trop i negative cardiology on case aspirin and plavix on hold in view of anemia h/o CVA with right side weakness aspirin and plavix on hold in view of anemia fluid : orally allowed electrolyte; hypokalemia resolved nutrition: clear liquid dvt pro: b/l scd gi pro: pepcid dispo: transfer to tele Visit type - Emergency Visit Emergency Visit: Yes ED Registration Date: 08/13/16 Care time: The patient presented to the Emergency Department on the above date and was hospitalized for further evaluation of their emergent condition. - New Patient This patient is new to me today: No - Critical Care Critical Care patient: Yes Total Critical Care Time (in minutes): 45 Critical Care Statement: The care of this patient involved high complexity decision making to prevent further life threatening deterioration of the patient 's condition and/or to evalute & treat vital organ system(s) failure or risk of failure.
[2016-08-16] MEDS ORDERED: FUROSEMIDE 40 MG/4 ML INJECTABLE VIAL IVPUSH ONE ×2 (16:09→22:00)
[2016-08-16] MEDS ORDERED: FUROSEMIDE 40 MG/4 ML INJECTABLE VIAL IVPUSH SCH ×2 (16:15)
--- NOTE | 2016-08-16 19:15 | PN ---
Progress Note (short form) - Note Progress Note: CC: anemia S: no cp, palps, dizziness. energy improved s/p tranfusion. mild sob. Current Medications Acetaminophen (Tylenol -) 650 mg PO Q6H PRN PRN Reason: FEVER OR PAIN Albuterol Sulfate (Ventolin 0.083% Nebulizer Soln -) 1 amp NEB QIDR [facility] Last Admin: 08/16/16 17:34 Dose: 1 amp Ascorbic Acid (Vitamin C -) 500 mg PO DAILY [facility] Last Admin: 08/16/16 09:32 Dose: 500 mg Atorvastatin Calcium (Lipitor -) 10 mg PO HS [facility] Last Admin: 08/15/16 21:52 Dose: 10 mg Chlorhexidine Gluconate (Hibiclens For Decolonization -) 1 applic TP HS [facility] Last Admin: 08/15/16 21:52 Dose: 1 applic Ferrous Sulfate (Feosol -) 325 mg PO DAILY [facility] Last Admin: 08/16/16 09:30 Dose: 325 mg Furosemide (Lasix Injection -) 80 mg IVPUSH ONCE ONE Stop: 08/16/16 22:01 Furosemide (Lasix Injection -) 80 mg IVPUSH BIDLASIX [facility] Famotidine/Sodium Chloride (Pepcid 20 Mg Premixed Ivpb -) 50 mls @ 100 mls/hr IVPB BID [facility] Last Admin: 08/16/16 09:32 Dose: 100 mls/hr Methylprednisolone Sodium Succinate (Solu-Medrol -) 40 mg IVPB DAILY [facility] Mupirocin (Bactroban Ointment (For Decolonization) -) 1 applic NS BID [facility] Stop: 08/18/16 21:59 Last Admin: 08/16/16 09:31 Dose: 1 applic Polyethylene Glycol (Miralax (For Daily Use) -) 17 gm PO DAILY [facility] Last Admin: 08/16/16 10:33 Dose: 17 grams Vital Signs - 24 hr 08/15/16 08/15/16 08/15/16 20:00 20:01 22:00 Temperature 97.8 F Pulse Rate 91 H 87 Respiratory 16 17 18 Rate Blood Pressure 108/69 104/69 O2 Sat by Pulse 96 Oximetry (%) 08/16/16 08/16/16 08/16/16 00:00 02:00 04:00 Temperature 97.6 F Pulse Rate 86 81 78 Respiratory 16 18 18 Rate Blood Pressure 99/60 97/56 92/70 O2 Sat by Pulse Oximetry (%) 08/16/16 08/16/16 08/16/16 06:00 08:00 09:00 Temperature 97.6 F Pulse Rate 89 88 Respiratory 18 12 Rate Blood Pressure 117/76 96/69 O2 Sat by Pulse 92 L 98 Oximetry (%) 08/16/16 08/16/16 08/16/16 10:00 10:11 11:55 Temperature 98.3 F Pulse Rate 93 H 95 H 90 Respiratory 18 19 Rate Blood Pressure 116/68 106/75 O2 Sat by Pulse 99 Oximetry (%) 08/16/16 08/16/16 08/16/16 11:56 12:49 14:00 Temperature 98.2 F Pulse Rate 90 90 Respiratory 19 15 Rate Blood Pressure 105/64 103/71 O2 Sat by Pulse 97 Oximetry (%) 08/16/16 08/16/16 16:00 18:00 Temperature 98.1 F Pulse Rate 92 H 98 H Respiratory 18 17 Rate Blood Pressure 104/67 111/73 O2 Sat by Pulse Oximetry (%) Intake & Output 08/14/16 08/15/16 08/16/16 08/17/16 07:59 07:59 07:59 07:59 Intake Total 350 400 460 720 Output Total 300 Balance 350 400 460 420 Weight 217 lb 2.485 oz 152 lb 148 lb 14.4 oz Constitutional: Yes: Well Nourished, No Distress Eyes: No: Sclera Icterus HENT: No: Nasal Congestion Neck: No: Decreased ROM Respiratory: Yes: diffuse rhonchi/wheezes No: Accessory Muscle Use, Wheezes Gastrointestinal: Yes: Normal Bowel Sounds. + Distention, No Hepatomegaly, Palpable Mass, Tenderness Cardiovascular: Yes: Regular Rate and Rhythm (soft heart sounds) JVD: Yes Carotid Bruit: No PMI: Displaced Heart Sounds: Yes: S1, S2. No: Gallop Murmur: 2/6 high pitched sys murmur at lsb and apex Musculoskeletal: Yes: Other (No kyphosis) Extremities: No: Cold, Cyanosis Edema: yes, dependent abdomen Peripheral Pulses: 2+ Left Carotid, 2+ Right Carotid, diminished dp/pt Integumentary: No: Jaundice Neurological: Yes: Alert, Oriented (x3) Psychiatric: No: Agitated - Other Data Labs, Other Data: CBC, BMP 08/16/16 05:15 08/16/16 05:15 tele: v-paced with intermittent Sinus beats vs. pvc. frequent nsvt, two episodes of svt EKG: biv-pacing with sinus beat vs. pvc Abd u/a: moderate amount of ascites in upper abdomen. Liver and spleen findings c/w cirrhosis. cath 08/02 all grafts patent (self to lad, svg to lcx, svg to rpda) echo 07/2015: sev lve, sev reduced lvef (global). grade 2 diastolic dysfunction. nl RV. mild connie. dilated ivc. mod mr, mod-sev tr, sev phtn, mild pr. Echo 08/03: sev LVE with severe decr EF; mild RV dil with moderate hypo; mod MR/ TR; RVSP >60 Imaging - Results Chest X-ray: Report and images Reviewed: Report - central congestive changes. my review - CM, likely small bilateral pleural effusions, pulmonary edema. Assessment/Plan 76 yo recent smoker (quit 6 mo ago) with h/o CAD s/p CABG, ischemic CM with EF 25% s/p BiVICD with secondary severe pulmonary hypertension, prior CVA, HL, copd, CKD, bph, chronic iron deficiency anemia who p/w worsened cough, sob, hypotension and noted to have profound anemia. Pre-operative clearance/anemia. - RCRI of 3. Has estimated high risk for jd-operative CV complications. Would optimize cardiac/pulmonary status over the next 24 hours if safe to delay endoscopy. still with significant wheezes on exam, unclear if cardiac vs. pulmonary. isch CMP (acute HF exacerbation) - s/p BiVICD --> routine outpatient monitoring. Last checked this month. Occasional brief nsvt noted on prior checks. - Patient's weight actually stable as outpatient in past month. Possible pulmonary congestion on CXR. ddx infection. trace le edema. After lasix 80 mg IV in ER last night, cr improved, but sodium worsened. Now s/p 2 units of PRBC and lasix 40 mg IV x 1 yesterday 08/14 with improvement in sodium, worsened again overnight. - 08/15: Patient overall comfortable. Unable to accurately assess I/O's, weights --> holding diuresis today so that he will definitively be net positive tomorrow and can reassess hypernatremia tomorrow and hepatic congestion. If worsens then will resume IV lasix. Patient with significant rhonchi and wheezes on exam. Also with moderate ascites on u/s. Frequent nsvt on tele. These findings remain concerning for heart failure exacerbation. Will repeat cxr in am. Echo. Replete electrolytes. Reluctant to add beta alondra while with active wheezes and unclear if he is decompensated. If needed overnight can start short acting low dose metoprolol. - 08/16: significant worsening of abdominal distension and edema without lasix yesterday. Initiating bid diuresis with lasix 80 mg IV BID. BMP this evening prior to second lasix dose to monitor sodium and potassium. Reluctant to add beta alondra while with active wheezes and unclear if he is decompensated. If needed overnight can start short acting low dose metoprolol. - not on bb, aceI at home due to prior side effects of hypotension, dizziness. - Unable to collect accurate I/O, weights here because per nursing pt incontinent. no standing weights available. If possible would continue to recommend strict i/o's. standing weights. CAD s/p h/o CABG 2006 - holding ASA, plavix. If anti-platelets can be resumed, would consider resuming just ASA. Currently not clear that he has a hard indication for plavix. - no angina. ekg v-paced, troponins neg x 1 h/o CVA details not clear from prior notes; not on AC, On ASA, plavix --> on hold as above. NSVT - having frequent nsvt. Seen on prior ICD checks. - electrolyte repletion prn. - con't telemetry monitoring. Monitor with improvement with treatment of underlying conditions. PAT - no recurrence on recent ICD check. - brief episodes on tele COPD as disc'd. per PMD +/- pulm
[2016-08-16 21:34] LABS: CALCIUM 8.1 mg/dL (8.5-10.1); CREATININE 1.5 mg/dL (0.7-1.3)
[2016-08-16] MEDS ORDERED: FUROSEMIDE 40 MG TABLET (FP) PO SCH (22:00)
[2016-08-16] MEDS: CHLORHEXIDINE GLUCONATE 4% CLEANSER FOR DECOLONIZATION TP SCH (22:10)
[2016-08-16] MEDS: ATORVASTATIN CA 10 MG TABLET (FP) PO SCH (22:11)
[2016-08-17] MEDS: FUROSEMIDE 40 MG/4 ML INJECTABLE VIAL IVPUSH SCH ×2 (05:52→13:02)
[2016-08-17] MEDS ORDERED: FUROSEMIDE 40 MG/4 ML INJECTABLE VIAL IVPUSH SCH (06:00)
[2016-08-17 06:30] LABS: MCH 20.5 pg (25.7-33.7); MCHC 29.1 g/dl (32.0-35.9); MEAN CELL VOLUME 70.2 fl (80-96); MEAN PLT VOLUME 8.9 fl (7.5-11.1); PLATELET COUNT 248 K/MM3 (134-434); RDW 24.1 % (11.9-15.9); WHITE BLOOD COUNT 16.3 K/mm3 (4.0-10.0)
[2016-08-17 06:31] LABS: ALBUMIN 2.4 g/dl (3.4-5.0); BILIRUBIN,TOTAL 1.2 mg/dL (0.2-1.0); CALCIUM 8.3 mg/dL (8.5-10.1); CREATININE 1.5 mg/dL (0.7-1.3); TOT PROT 6.7 g/dl (6.4-8.2)
[2016-08-17] MEDS: ALBUTEROL SO4 0.083% IH SOL 2.5 MG/3 ML VIAL.NEB. NEB SCH ×3 (06:42→17:15)
[2016-08-17 06:43] LABS: COCKROFT - GAULT 39.64
--- NOTE | 2016-08-17 08:10 | PN ---
Progress Note (short form) - Note Progress Note: SUBJECTIVE: Patient seen and examined in the ICU. Chart reviewed. Sitting in chair. Feels better. OBJECTIVE: Vital Signs - 8 hr 08/17/16 08/17/16 08/17/16 02:00 04:00 06:00 Temperature 98.4 F 98.2 F Pulse Rate 90 94 H 90 Respiratory 16 16 16 Rate Blood Pressure 124/63 108/76 105/68 O2 Sat by Pulse Oximetry (%) 08/17/16 08:00 Temperature Pulse Rate 95 H Respiratory 18 Rate Blood Pressure 105/89 O2 Sat by Pulse 94 L Oximetry (%) Intake & Output 08/16/16 08/17/16 08/17/16 23:59 07:59 15:59 Intake Total 870 100 Output Total 700 700 400 Balance 170 -600 -400 Weight 66.905 kg Intake: IVPB 50 Oral 870 50 Output: Urine 700 700 400 Void 700 700 400 Other: Voiding Method Urinal Bowel Movement Yes Yes # Bowel Movements 1 1 Weight Measurement Method Built in [facility] Active Medications Acetaminophen (Tylenol -) 650 mg PO Q6H PRN PRN Reason: FEVER OR PAIN Albuterol Sulfate (Ventolin 0.083% Nebulizer Soln -) 1 amp NEB QIDR [facility] Last Admin: 08/17/16 06:42 Dose: 1 amp Ascorbic Acid (Vitamin C -) 500 mg PO DAILY [facility] Last Admin: 08/17/16 09:53 Dose: 500 mg Atorvastatin Calcium (Lipitor -) 10 mg PO HS [facility] Last Admin: 08/16/16 22:11 Dose: 10 mg Chlorhexidine Gluconate (Hibiclens For Decolonization -) 1 applic TP HS [facility] Last Admin: 08/16/16 22:10 Dose: 1 applic Ferrous Sulfate (Feosol -) 325 mg PO DAILY [facility] Last Admin: 08/17/16 09:53 Dose: 325 mg Furosemide (Lasix Injection -) 80 mg IVPUSH BIDLASIX [facility] Last Admin: 08/17/16 05:52 Dose: 80 mg Famotidine/Sodium Chloride (Pepcid 20 Mg Premixed Ivpb -) 50 mls @ 100 mls/hr IVPB BID [facility] Last Admin: 08/17/16 09:54 Dose: 100 mls/hr Methylprednisolone Sodium Succinate (Solu-Medrol -) 40 mg IVPB DAILY [facility] Last Admin: 08/17/16 09:54 Dose: 40 mg Mupirocin (Bactroban Ointment (For Decolonization) -) 1 applic NS BID [facility] Stop: 08/18/16 21:59 Last Admin: 08/17/16 09:53 Dose: 1 applic Polyethylene Glycol (Miralax (For Daily Use) -) 17 gm PO DAILY [facility] Last Admin: 08/16/16 10:33 Dose: 17 grams CBC, BMP 08/17/16 05:15 08/17/16 05:15 Laboratory Results - last 24 hr 08/13/16 08/16/16 08/16/16 15:45 20:30 20:30 WBC RBC Hgb Hct MCV MCHC RDW Plt Count MPV Sodium 146 H Potassium 4.3 Chloride 109 H Carbon Dioxide 27 Anion Gap 10 BUN 64 H Creatinine 1.5 H Creat Clearance w eGFR Random Glucose 200 H D Calcium 8.1 L Total Bilirubin AST ALT Alkaline Phosphatase B-Natriuretic Peptide 41181.44 H Cancelled Total Protein Albumin Blood Type A POSITIVE Antibody Screen Negative Crossmatch See Detail 08/17/16 08/17/16 05:15 05:15 WBC 16.3 H D RBC 3.95 L Hgb 8.1 L Hct 27.8 L MCV 70.2 L MCHC 29.1 L RDW 24.1 H Plt Count 248 MPV 8.9 Sodium 147 H Potassium 4.5 Chloride 110 H Carbon Dioxide 27 Anion Gap 10 BUN 69 H Creatinine 1.5 H Creat Clearance w eGFR 45.50 Random Glucose 156 H D Calcium 8.3 L Total Bilirubin 1.2 H D AST 47 H D ALT 29 D Alkaline Phosphatase 146 H B-Natriuretic Peptide Total Protein 6.7 Albumin 2.4 L Blood Type Antibody Screen Crossmatch Microbiology 08/13/16 15:45 Blood Culture - Preliminary Blood - Peripheral Venous NO GROWTH OBTAINED AFTER 72 HOURS, INCUBATION TO CONTINUE FOR 2 DAYS. 08/13/16 15:45 Blood Culture - Preliminary Blood - Peripheral Venous NO GROWTH OBTAINED AFTER 72 HOURS, INCUBATION TO CONTINUE FOR 2 DAYS. PHYSICAL EXAMINATION: Constitutional: Yes: No Distress Cardiovascular: Yes: Regular Rate and Rhythm, Murmur, Other (PPM) Respiratory: Yes: Diminished, Rhonchi/ Poor Air Entry Gastrointestinal: Yes: Normal Bowel Sounds, Soft, Abdomen, Obese, Distention. No: Tenderness Edema: No Psychiatric: Yes: Alert ASSESSMENT & PLAN: - Clinically better. - Continue present care. - Taper steroids slowly. - Monitor H/H. - Consider restarting Aspirin/Plavix-- pending GI clearance. - Started on IV Lasix. - Will follow. - Discussed with ICU Resident also. Documentation prepared by Darlene Manuel, acting as a medical lab director for Purnima Driscoll MD. <Darlene Manuel - Last Filed: 08/17/16 11:11> Problem List - Problems (1) Anemia Code(s): D64.9 - ANEMIA, UNSPECIFIED Qualifiers: Anemia type: unspecified type Qualified Code(s): D64.9 - Anemia, unspecified (2) CHF (congestive heart failure) Code(s): I50.9 - HEART FAILURE, UNSPECIFIED Qualifiers: Congestive heart failure type: combined Congestive heart failure chronicity: acute on chronic Qualified Code(s): I50.43 - Acute on chronic combined systolic (congestive) and diastolic (congestive) heart failure (3) CKD (chronic kidney disease) Code(s): N18.9 - CHRONIC KIDNEY DISEASE, UNSPECIFIED Qualifiers: Chronic kidney disease stage: unspecified stage Qualified Code(s): N18.9 - Chronic kidney disease, unspecified (4) COPD (chronic obstructive pulmonary disease) Code(s): J44.9 - CHRONIC OBSTRUCTIVE PULMONARY DISEASE, UNSPECIFIED (5) Hypotension Code(s): I95.9 - HYPOTENSION, UNSPECIFIED (6) Lactic acid blood increased Code(s): R79.89 - OTHER SPECIFIED ABNORMAL FINDINGS OF BLOOD CHEMISTRY (7) Pacemaker Code(s): Z95.0 - PRESENCE OF CARDIAC PACEMAKER <Purnima Driscoll - Last Filed: 08/17/16 08:10>
[2016-08-17] MEDS ORDERED: PT OWN MED DRAWER 7, Y5N ONE (09:12)
[2016-08-17] MEDS: FERROUS SO4 325 MG TABLET (FP) PO SCH (09:53)
[2016-08-17] MEDS: ASCORBIC ACID 500 MG TABLET (FP) PO SCH (09:53)
[2016-08-17] MEDS: MUPIROCIN 2% TOPICAL OINTMENT FOR DECOLONIZATION NS SCH ×2 (09:53→21:59)
[2016-08-17] MEDS: FAMOTIDINE 20 MG/50 ML IVPB 50 ML IVPB SCH (09:54)
[2016-08-17] MEDS ORDERED: methylPREDNISolone NA SUCC 40 MG/1 ML VIAL IVPB SCH (10:00)
--- NOTE | 2016-08-17 11:52 | PN ---
Teaching Attending Note Name of Resident: Lennox Laura ATTENDING PHYSICIAN STATEMENT I saw and evaluated the patient. I reviewed the resident's note and discussed the case with the resident. I agree with the resident's findings and plan as documented. SUBJECTIVE: Patient seen and examined in the ICU. Awake and alert. Appears more edematous today. Lasix restarted yesterday. Denies chest pain. (+) Congested cough with white/clear sputum. No acute bleeding overnight. No fevers or chills. OBJECTIVE: Intake & Output 08/14/16 08/15/16 08/16/16 08/17/16 23:59 23:59 23:59 23:59 Intake Total 350 510 870 700 Output Total 700 700 Balance 350 510 170 0 Weight 153 lb 4.8 oz 152 lb 148 lb 14.4 oz 147 lb 8 oz Last Vital Signs Temp Pulse Resp BP Pulse Ox 97.4 F L 89 18 105/73 99 08/17/16 10:00 08/17/16 10:00 08/17/16 10:00 08/17/16 10:00 08/17/16 10:08 Active Medications Acetaminophen (Tylenol -) 650 mg PO Q6H PRN PRN Reason: FEVER OR PAIN Albuterol Sulfate (Ventolin 0.083% Nebulizer Soln -) 1 amp NEB QIDR [facility] Last Admin: 08/17/16 06:42 Dose: 1 amp Ascorbic Acid (Vitamin C -) 500 mg PO DAILY [facility] Last Admin: 08/17/16 09:53 Dose: 500 mg Atorvastatin Calcium (Lipitor -) 10 mg PO HS [facility] Last Admin: 08/16/16 22:11 Dose: 10 mg Chlorhexidine Gluconate (Hibiclens For Decolonization -) 1 applic TP HS [facility] Last Admin: 08/16/16 22:10 Dose: 1 applic Ferrous Sulfate (Feosol -) 325 mg PO DAILY [facility] Last Admin: 08/17/16 09:53 Dose: 325 mg Furosemide (Lasix Injection -) 80 mg IVPUSH BIDLASIX [facility] Last Admin: 08/17/16 05:52 Dose: 80 mg Mupirocin (Bactroban Ointment (For Decolonization) -) 1 applic NS BID [facility] Stop: 08/18/16 21:59 Last Admin: 08/17/16 09:53 Dose: 1 applic Polyethylene Glycol (Miralax (For Daily Use) -) 17 gm PO DAILY [facility] Last Admin: 08/16/16 10:33 Dose: 17 grams Prednisone (Deltasone -) 30 mg PO DAILY [facility] Ranitidine HCl (Zantac -) 150 mg PO BID [facility] Gen: Awake and alert Heart: RRR Lung: (+) Inspiratory wheeze and bibasilar rales Abd: soft, nontender Ext: (+) edema Laboratory Results - last 24 hr 08/13/16 08/16/16 08/16/16 15:45 20:30 20:30 WBC RBC Hgb Hct MCV MCHC RDW Plt Count MPV Sodium 146 H Potassium 4.3 Chloride 109 H Carbon Dioxide 27 Anion Gap 10 BUN 64 H Creatinine 1.5 H Creat Clearance w eGFR Random Glucose 200 H D Calcium 8.1 L Total Bilirubin AST ALT Alkaline Phosphatase B-Natriuretic Peptide 18118.44 H Cancelled Total Protein Albumin Blood Type A POSITIVE Antibody Screen Negative Crossmatch See Detail 08/17/16 08/17/16 05:15 05:15 WBC 16.3 H D RBC 3.95 L Hgb 8.1 L Hct 27.8 L MCV 70.2 L MCHC 29.1 L RDW 24.1 H Plt Count 248 MPV 8.9 Sodium 147 H Potassium 4.5 Chloride 110 H Carbon Dioxide 27 Anion Gap 10 BUN 69 H Creatinine 1.5 H Creat Clearance w eGFR 45.50 Random Glucose 156 H D Calcium 8.3 L Total Bilirubin 1.2 H D AST 47 H D ALT 29 D Alkaline Phosphatase 146 H B-Natriuretic Peptide Total Protein 6.7 Albumin 2.4 L Blood Type Antibody Screen Crossmatch ASSESSMENT AND PLAN: Acute Respiratory Distress resolving Acute COPD Exacerbation Severe LV Systolic Dysfunction Lactic Acidosis resolved Anemia s/p PRBC transfusions Acute on Chronic Renal Failure CAD s/p CABG Volume Overload - Lasix restarted - monitor urine output, creatinine - LAZARO-I/ARB when renal function stabilizes - monitor H/H - Change to Prednisone - inhaled bronchodilators (hold anticholinergic agents) - DVT/GI prophylaxis - Cardiac telemetry monitoring Dr Stuart Critical care time spent reviewing chart, evaluating patient and formulating plan 35 min
--- NOTE | 2016-08-17 12:35 | PN ---
Physical Exam: SUBJECTIVE: Patient seen and examined Patient was sitting comfartably in chair denies chest pain, sob, patient has b/l crepts, inspirator wheez, and pedal edema patient is in negative 600 will d/c solumedrol and start him on oral prednisone po pepcid OBJECTIVE: Vital Signs Period Temp Pulse Resp BP Sys/Vega Pulse Ox Last 24 Hr 97.4 F-98.9 F 88-98 15-19 103-124/63-89 97-100 GENERAL: The patient is awake, alert, and fully oriented, in no acute distress. HEAD: Normal with no signs of trauma. EYES: PERRL, ENT: moist mucous membranes. LUNGS: b/l diffuse crepts, inspiratory wheez, decrease breath sound at base HEART: s1s2 normal. ABDOMEN: Soft, nontender, normoactive bowel sounds, no guarding, no rebound, EXTREMITIES: well-perfused, pedal edema 1+ PSYCH: Normal mood, normal affect. Laboratory Results - last 24 hr 08/16/16 08/16/16 08/17/16 20:30 20:30 05:15 WBC RBC Hgb Hct MCV MCHC RDW Plt Count MPV Sodium 146 H 147 H Potassium 4.3 4.5 Chloride 109 H 110 H Carbon Dioxide 27 27 Anion Gap 10 10 BUN 64 H 69 H Creatinine 1.5 H 1.5 H Creat Clearance w eGFR 45.50 Random Glucose 200 H D 156 H D Calcium 8.1 L 8.3 L Total Bilirubin 1.2 H D AST 47 H D ALT 29 D Alkaline Phosphatase 146 H B-Natriuretic Peptide 06812.44 H Cancelled Total Protein 6.7 Albumin 2.4 L 08/17/16 05:15 WBC 16.3 H D RBC 3.95 L Hgb 8.1 L Hct 27.8 L MCV 70.2 L MCHC 29.1 L RDW 24.1 H Plt Count 248 MPV 8.9 Sodium Potassium Chloride Carbon Dioxide Anion Gap BUN Creatinine Creat Clearance w eGFR Random Glucose Calcium Total Bilirubin AST ALT Alkaline Phosphatase B-Natriuretic Peptide Total Protein Albumin Active Medications Generic Name Dose Route Start Last Admin Trade Name Freq PRN Reason Stop Dose Admin Acetaminophen 650 mg 08/15/16 08:06 Tylenol - PO Q6H PRN FEVER OR PAIN Albuterol Sulfate 1 amp 08/16/16 12:30 08/17/16 11:15 Ventolin 0.083% Nebulizer Soln - NEB 1 amp QIDR [facility] Administration Ascorbic Acid 500 mg 08/16/16 10:00 08/17/16 09:53 Vitamin C - PO 500 mg DAILY [facility] Administration Atorvastatin Calcium 10 mg 08/15/16 22:00 08/16/16 22:11 Lipitor - PO 10 mg HS [facility] Administration Chlorhexidine Gluconate 1 applic 08/15/16 22:00 08/16/16 22:10 Hibiclens For Decolonization - TP 1 applic HS [facility] Administration Ferrous Sulfate 325 mg 08/16/16 10:00 08/17/16 09:53 Feosol - PO 325 mg DAILY [facility] Administration Furosemide 80 mg 08/17/16 06:00 08/17/16 05:52 Lasix Injection - IVPUSH 80 mg BIDLASIX [facility] Administration Mupirocin 1 applic 08/15/16 10:00 08/17/16 09:53 Bactroban Ointment (For Decolonization) - NS 08/18/16 21:59 1 applic BID [facility] Administration Polyethylene Glycol 17 gm 08/16/16 10:00 08/16/16 10:33 Miralax (For Daily Use) - PO 17 grams DAILY [facility] Administration Prednisone 30 mg 08/18/16 10:00 Deltasone - PO DAILY [facility] Ranitidine HCl 150 mg 08/17/16 22:00 Zantac - PO BID [facility] ASSESSMENT/PLAN: Respiratory dostress colud be due COPD excerbration and anemia, chf excerbration patient states breathing is same since yesterday wheezing and crepts present on albuterol neb, on oxygen on prednisone 30mg daily keep spo2 > 90 hb 8.1 s/p blood transfusion monitor vitals monitor intake output, negative 600 on lasix 80mg iv bid daily weight 66.9 severe microcytic anemia hb 8.1 s/p transfusion follow iron studies stool occult negative Lactic acidosis improved h/o copd on albuterol and prednisone smoking cessation manjinder on ckd could be prerenal avoid nephrotoxic drugs monitor creatnine h/o CAD CABG in 2006 trop i negative cardiology on case aspirin and plavix on hold in view of anemia h/o CVA with right side weakness aspirin and plavix on hold in view of anemia fluid : orally allowed electrolyte; repeat in am nutrition: clear liquid dvt pro: b/l scd gi pro: pepcid po dispo: transfer to tele Visit type - Emergency Visit Emergency Visit: Yes ED Registration Date: 08/13/16 Care time: The patient presented to the Emergency Department on the above date and was hospitalized for further evaluation of their emergent condition. - New Patient This patient is new to me today: No - Critical Care Critical Care patient: Yes Total Critical Care Time (in minutes): 45 Critical Care Statement: The care of this patient involved high complexity decision making to prevent further life threatening deterioration of the patient 's condition and/or to evalute & treat vital organ system(s) failure or risk of failure.
[2016-08-17] MEDS: POLYETHYLENE GLYCOL 3350 119 GM BTL PO SCH (13:17)
--- NOTE | 2016-08-17 18:26 | PN ---
Progress Note (short form) - Note Progress Note: CC: anemia/chf exacerbation S: no cp, palps, dizziness. energy improved. mild sob persists, abdominal distension remains. Current Medications Acetaminophen (Tylenol -) 650 mg PO Q6H PRN PRN Reason: FEVER OR PAIN Albuterol Sulfate (Ventolin 0.083% Nebulizer Soln -) 1 amp NEB QIDR [facility] Last Admin: 08/17/16 17:15 Dose: 1 amp Ascorbic Acid (Vitamin C -) 500 mg PO DAILY [facility] Last Admin: 08/17/16 09:53 Dose: 500 mg Atorvastatin Calcium (Lipitor -) 10 mg PO HS [facility] Last Admin: 08/16/16 22:11 Dose: 10 mg Chlorhexidine Gluconate (Hibiclens For Decolonization -) 1 applic TP [facility] Last Admin: 08/16/16 22:10 Dose: 1 applic Ferrous Sulfate (Feosol -) 325 mg PO DAILY [facility] Last Admin: 08/17/16 09:53 Dose: 325 mg Furosemide (Lasix Injection -) 80 mg IVPUSH BIDLASIX [facility] Last Admin: 08/17/16 13:02 Dose: 80 mg Mupirocin (Bactroban Ointment (For Decolonization) -) 1 applic NS BID [facility] Stop: 08/18/16 21:59 Last Admin: 08/17/16 09:53 Dose: 1 applic Polyethylene Glycol (Miralax (For Daily Use) -) 17 gm PO DAILY [facility] Last Admin: 08/17/16 13:17 Dose: 17 grams Prednisone (Deltasone -) 30 mg PO DAILY [facility] Ranitidine HCl (Zantac -) 150 mg PO BID [facility] Vital Signs - 24 hr 08/16/16 08/16/16 08/16/16 20:00 21:00 22:00 Temperature 98.9 F Pulse Rate 88 94 H Respiratory 18 17 17 Rate Blood Pressure 111/63 112/78 O2 Sat by Pulse 97 97 Oximetry (%) 08/17/16 08/17/16 08/17/16 00:00 02:00 04:00 Temperature 98.4 F Pulse Rate 90 90 94 H Respiratory 16 16 16 Rate Blood Pressure 107/69 124/63 108/76 O2 Sat by Pulse Oximetry (%) 08/17/16 08/17/16 08/17/16 06:00 08:00 09:00 Temperature 98.2 F Pulse Rate 90 95 H Respiratory 16 18 Rate Blood Pressure 105/68 105/89 O2 Sat by Pulse 100 100 Oximetry (%) 08/17/16 08/17/16 08/17/16 10:00 10:08 12:00 Temperature 97.4 F L Pulse Rate 89 97 H Respiratory 18 16 Rate Blood Pressure 105/73 97/66 O2 Sat by Pulse 99 98 Oximetry (%) 08/17/16 14:00 Temperature 98.4 F Pulse Rate 96 H Respiratory 18 Rate Blood Pressure 127/74 O2 Sat by Pulse Oximetry (%) Intake & Output 08/15/16 08/16/16 08/17/16 08/18/16 07:59 07:59 07:59 07:59 Intake Total 400 460 970 600 Output Total 1400 725 Balance 400 460 -430 -125 Weight 152 lb 148 lb 14.4 oz 147 lb 8 oz Constitutional: Yes: Well Nourished, No Distress Eyes: No: Sclera Icterus HENT: No: Nasal Congestion Neck: No: Decreased ROM Respiratory: Yes: diffuse rhonchi No: Accessory Muscle Use, Wheezes Gastrointestinal: Yes: Normal Bowel Sounds. + Distention, No Hepatomegaly, Palpable Mass, Tenderness Cardiovascular: Yes: Regular Rate and Rhythm (soft heart sounds) JVD: Yes Carotid Bruit: No PMI: Displaced Heart Sounds: Yes: S1, S2. No: Gallop Murmur: 2/6 high pitched sys murmur at lsb and apex Musculoskeletal: Yes: Other (No kyphosis) Extremities: No: Cold, Cyanosis Edema: yes, trace - 1+ dependent abdomen and LE Peripheral Pulses: 2+ Left Carotid, 2+ Right Carotid, diminished dp/pt Integumentary: No: Jaundice Neurological: Yes: Alert, Oriented (x3) Psychiatric: No: Agitated - Other Data Labs, Other Data: CBC, BMP 08/17/16 05:15 08/17/16 05:15 tele: v-paced with intermittent Sinus beats vs. pvc. EKG: biv-pacing with sinus beat vs. pvc Abd u/a: moderate amount of ascites in upper abdomen. Liver and spleen findings c/w cirrhosis. cath 08/02 all grafts patent (self to lad, svg to lcx, svg to rpda) echo 07/2016 (this admit): mod lve, sev reduced LV fn (global). mild rve with mild red global fn (severe TR, intrinsic RV fn likely more depressed), 1+ connie. 1 + mr, severe tr, mod phtn, pl effusion echo 07/2015: sev lve, sev reduced lvef (global). grade 2 diastolic dysfunction. nl RV. mild connie. dilated ivc. mod mr, mod-sev tr, sev phtn, mild pr. Echo 08/03: sev LVE with severe decr EF; mild RV dil with moderate hypo; mod MR/ TR; RVSP >60 Imaging - Results Chest X-ray: Report and images Reviewed: Report - central congestive changes. my review - CM, likely small bilateral pleural effusions, pulmonary edema. Assessment/Plan 76 yo recent smoker (quit 6 mo ago) with h/o CAD s/p CABG, ischemic CM with EF 25% s/p BiVICD with secondary severe pulmonary hypertension, prior CVA, HL, copd, CKD, bph, chronic iron deficiency anemia who p/w worsened cough, sob, hypotension and noted to have profound anemia. Pre-operative clearance/anemia. - RCRI of 3. Has estimated high risk for jd-operative CV complications. Would optimize cardiac/pulmonary status if safe to delay endoscopy. still with decompensated heart failure at this time. isch CMP (acute HF exacerbation) - s/p BiVICD --> routine outpatient monitoring. Last checked this month. Occasional brief nsvt noted on prior checks. - Patient's weight actually stable as outpatient in past month. Possible pulmonary congestion on CXR. ddx infection. trace le edema. After lasix 80 mg IV in ER last night, cr improved, but sodium worsened. Now s/p 2 units of PRBC and lasix 40 mg IV x 1 yesterday 08/14 with improvement in sodium, worsened again overnight. - 08/15: Patient overall comfortable. Unable to accurately assess I/O's, weights --> holding diuresis today so that he will definitively be net positive tomorrow and can reassess hypernatremia tomorrow and hepatic congestion. If worsens then will resume IV lasix. Patient with significant rhonchi and wheezes on exam. Also with moderate ascites on u/s. Frequent nsvt on tele. These findings remain concerning for heart failure exacerbation. Will repeat cxr in am. Echo. Replete electrolytes. Reluctant to add beta alondra while with active wheezes and unclear if he is decompensated. If needed overnight can start short acting low dose metoprolol. - 08/16: significant worsening of abdominal distension and edema without lasix yesterday. Initiating bid diuresis with lasix 80 mg IV BID. BMP this evening prior to second lasix dose to monitor sodium and potassium. Reluctant to add beta alondra while with active wheezes and unclear if he is decompensated. - 08/17: nsvt/ectopy improved with diuresis. Echo shows worsened RV function. Patient likely with acute decompensated HF and superimposed RV HF exacerbation. BUN rising. Will start milrinone to augment RV function and reduce pulmonary pressures. Con't bid lasix. - not on bb, aceI at home due to prior side effects of hypotension, dizziness. - Unable to collect accurate I/O, weights here because per nursing pt incontinent. no standing weights available. If possible would continue to recommend strict i/o's. standing weights. CAD s/p h/o CABG 2006 - holding ASA, plavix. If anti-platelets can be resumed, would consider resuming ASA alone. Currently not clear that he has a hard indication for dapt. - no angina. ekg v-paced, troponins neg x 1 h/o CVA details not clear from prior notes; not on AC, On ASA, plavix --> on hold as above. NSVT - nsvt seen on prior ICD checks. - electrolyte repletion prn. - con't telemetry monitoring. NSVT frequency improved with treatment of heart failure. Monitor for recurrence now that milrinone being initiated. PAT - no recurrence on recent ICD check. - brief episodes on tele here COPD as disc'd. per PMD +/- pulm. On steroids
[2016-08-17] MEDS ORDERED: MILRINONE 20MG/100ML IVPB - 100 ML IVPB SCH (18:45)
[2016-08-17] MEDS: ATORVASTATIN CA 10 MG TABLET (FP) PO SCH (22:00)
[2016-08-17] MEDS: CHLORHEXIDINE GLUCONATE 4% CLEANSER FOR DECOLONIZATION TP SCH (22:00)
[2016-08-17] MEDS: RANITIDINE HCL 150 MG TABLET (FP) PO SCH (22:00)
[2016-08-18] MEDS: ALBUTEROL SO4 0.083% IH SOL 2.5 MG/3 ML VIAL.NEB. NEB SCH ×5 (05:35→17:59)
[2016-08-18] MEDS: FUROSEMIDE 40 MG/4 ML INJECTABLE VIAL IVPUSH SCH ×2 (06:06→14:26)
[2016-08-18 07:23] LABS: ALBUMIN 2.3 g/dl (3.4-5.0); CALCIUM 8.6 mg/dL (8.5-10.1); COCKROFT - GAULT 43.81; CREATININE 1.4 mg/dL (0.7-1.3)
[2016-08-18 07:25] LABS: BILIRUBIN,TOTAL 1.3 mg/dL (0.2-1.0); TOT PROT 6.5 g/dl (6.4-8.2)
--- NOTE | 2016-08-18 08:38 | PN ---
Progress Note (short form) - Note Progress Note: Patient seen and examined in the ICU. Awake and alert. Slightly less edematous today. Tolerating Lasix. Denies chest pain. Still with some congested cough with white/clear sputum. No acute bleeding overnight. No fevers or chills. OBJECTIVE: Intake & Output 08/15/16 08/16/16 08/17/16 08/18/16 23:59 23:59 23:59 23:59 Intake Total 164 738 1506 153.2 Output Total 700 1725 100 Balance 510 170 -605 53.2 Weight 152 lb 148 lb 14.4 oz 147 lb 8 oz 152 lb 2 oz Last Vital Signs Temp Pulse Resp BP Pulse Ox 98.6 F 96 H 22 112/57 96 08/18/16 06:00 08/18/16 08:00 08/18/16 08:00 08/18/16 08:00 08/17/16 21:00 Active Medications Acetaminophen (Tylenol -) 650 mg PO Q6H PRN PRN Reason: FEVER OR PAIN Albuterol Sulfate (Ventolin 0.083% Nebulizer Soln -) 1 amp NEB QIDR [facility] Last Admin: 08/18/16 05:35 Dose: 1 amp Ascorbic Acid (Vitamin C -) 500 mg PO DAILY [facility] Last Admin: 08/17/16 09:53 Dose: 500 mg Atorvastatin Calcium (Lipitor -) 10 mg PO HS [facility] Last Admin: 08/17/16 22:00 Dose: 10 mg Chlorhexidine Gluconate (Hibiclens For Decolonization -) 1 applic TP HS [facility] Last Admin: 08/17/16 22:00 Dose: 1 applic Ferrous Sulfate (Feosol -) 325 mg PO DAILY [facility] Last Admin: 08/17/16 09:53 Dose: 325 mg Furosemide (Lasix Injection -) 80 mg IVPUSH BIDLASIX [facility] Last Admin: 08/18/16 06:06 Dose: 80 mg Milrinone Lactate/Dextrose (Milrinone 20mg/100ml Ivpb -) 100 mls @ 7.527 mls/ hr IVPB TITR [facility] PRN Reason: 0.375 MCG/KG/MIN Last Admin: 08/17/16 19:45 Dose: 7.527 mls/hr Mupirocin (Bactroban Ointment (For Decolonization) -) 1 applic NS BID [facility] Stop: 08/18/16 21:59 Last Admin: 08/17/16 21:59 Dose: 1 applic Polyethylene Glycol (Miralax (For Daily Use) -) 17 gm PO DAILY [facility] Last Admin: 08/17/16 13:17 Dose: 17 grams Prednisone (Deltasone -) 30 mg PO DAILY [facility] Ranitidine HCl (Zantac -) 150 mg PO BID [facility] Last Admin: 08/17/16 22:00 Dose: 150 mg Gen: Awake and alert Heart: RRR Lung: (+) Inspiratory wheeze and bibasilar rales Abd: soft, nontender Ext: (+) edema Laboratory Results - last 24 hr 08/13/16 08/18/16 15:45 05:35 Sodium 145 Potassium 4.1 Chloride 104 Carbon Dioxide 30 Anion Gap 11 BUN 68 H Creatinine 1.4 H Creat Clearance w eGFR 49.27 Random Glucose 129 H Calcium 8.6 Total Bilirubin 1.3 H AST 47 H ALT 38 D Alkaline Phosphatase 146 H Total Protein 6.5 Albumin 2.3 L Blood Type A POSITIVE Antibody Screen Negative Crossmatch See Detail ASSESSMENT AND PLAN: Acute Respiratory Distress resolving Acute COPD Exacerbation Severe LV Systolic Dysfunction Lactic Acidosis resolved Anemia s/p PRBC transfusions Acute on Chronic Renal Failure CAD s/p CABG Volume Overload - Lasix - monitor urine output, creatinine - monitor H/H - Prednisone - inhaled bronchodilators (hold anticholinergic agents) - DVT/GI prophylaxis - Cardiac telemetry monitoring Dr Stuart Critical care time spent reviewing chart, evaluating patient and formulating plan 35 min
--- NOTE | 2016-08-18 10:10 | PN ---
Progress Note (short form) - Note Progress Note: CC: anemia/chf exacerbation S: no cp, palps, dizziness, sob, orthopnea Current Medications Generic Name Dose Route Start Last Admin Trade Name Freq PRN Reason Stop Dose Admin Acetaminophen 650 mg 08/15/16 08:06 Tylenol - PO Q6H PRN FEVER OR PAIN Albuterol Sulfate 1 amp 08/16/16 12:30 08/18/16 05:35 Ventolin 0.083% Nebulizer Soln - NEB 1 amp QIDR [facility] Administration Ascorbic Acid 500 mg 08/16/16 10:00 08/17/16 09:53 Vitamin C - PO 500 mg DAILY [facility] Administration Atorvastatin Calcium 10 mg 08/15/16 22:00 08/17/16 22:00 Lipitor - PO 10 mg HS [facility] Administration Chlorhexidine Gluconate 1 applic 08/15/16 22:00 08/17/16 22:00 Hibiclens For Decolonization - TP 1 applic HS [facility] Administration Ferrous Sulfate 325 mg 08/16/16 10:00 08/17/16 09:53 Feosol - PO 325 mg DAILY [facility] Administration Furosemide 80 mg 08/17/16 06:00 08/18/16 06:06 Lasix Injection - IVPUSH 80 mg BIDLASIX [facility] Administration Milrinone Lactate/Dextrose 100 mls @ 7.527 mls/hr 08/17/16 18:45 08/17/16 19:45 Milrinone 20mg/100ml Ivpb - IVPB 7.527 mls/hr TITR [facility] Administration 0.375 MCG/KG/MIN Mupirocin 1 applic 08/15/16 10:00 08/17/16 21:59 Bactroban Ointment (For Decolonization) - NS 08/18/16 21:59 1 applic BID [facility] Administration Polyethylene Glycol 17 gm 08/16/16 10:00 08/17/16 13:17 Miralax (For Daily Use) - PO 17 grams DAILY [facility] Administration Prednisone 30 mg 08/18/16 10:00 Deltasone - PO DAILY [facility] Ranitidine HCl 150 mg 08/17/16 22:00 08/17/16 22:00 Zantac - PO 150 mg BID [facility] Administration Vital Signs Temp 98.6 F 08/18/16 06:00 Pulse 96 H 08/18/16 08:00 Resp 22 08/18/16 08:00 BP 112/57 08/18/16 08:00 Pulse Ox 95 08/18/16 09:00 Intake & Output 08/17/16 08/17/16 08/18/16 11:59 23:59 11:59 Intake Total 700 420 153.2 Output Total 700 1025 100 Balance 0 -605 53.2 Weight 147 lb 8 oz 152 lb 2 oz Intake: IV 30 53.2 Milrinone 20Mg/100Ml Ivpb 30 53.2 - 100 ml @ 0.375 MCG/KG/ MIN 7.527 mls/hr IVPB TITR [facility] Rx#:[id number] IVPB 50 50 Oral 650 340 100 Output: Urine 700 1025 100 Void 700 1025 100 Other: Voiding Method External Catheter Diaper Diaper # Unmeasured Voids Void 1 1 3 Bowel Movement Yes # Bowel Movements 1 Weight Measurement Method Built in [facility] Built in [facility] Constitutional: Yes: Well Nourished, No Distress Eyes: No: Sclera Icterus Respiratory: Yes: diffuse rhonchi No: Accessory Muscle Use, Wheezes Gastrointestinal: Yes: Normal Bowel Sounds. + Distention, No Hepatomegaly, Palpable Mass, Tenderness Cardiovascular: Yes: Regular Rate and Rhythm (soft heart sounds) JVD: Yes Heart Sounds: Yes: S1, S2. No: Gallop Murmur: 2/6 high pitched sys murmur at lsb and apex Extremities: No: Cold, Cyanosis Edema: yes, trace - 1+ dependent abdomen and LE Peripheral Pulses:+dp pt Integumentary: No: Jaundice diaphoresis Neurological: Yes: Alert, Oriented (x3) Psychiatric: No: Agitated - Other Data Labs, Other Data: Laboratory Last Values WBC 16.3 K/mm3 (4.0-10.0) H D 08/17/16 05:15 RBC 3.95 M/mm3 (4.00-5.60) L 08/17/16 05:15 Hgb 8.1 GM/dL (11.7-16.9) L 08/17/16 05:15 Hct 27.8 % (35.4-49) L 08/17/16 05:15 MCV 70.2 fl (80-96) L 08/17/16 05:15 MCHC 29.1 g/dl (32.0-35.9) L 08/17/16 05:15 RDW 24.1 % (11.9-15.9) H 08/17/16 05:15 Plt Count 248 K/MM3 (134-434) 08/17/16 05:15 MPV 8.9 fl (7.5-11.1) 08/17/16 05:15 Neutrophils % 92.3 % (42.8-82.8) H 08/16/16 05:15 Lymphocytes % 4.2 % (8-40) L D 08/16/16 05:15 Monocytes % 3.3 % (3.8-10.2) L D 08/16/16 05:15 Eosinophils % 0.0 % (0-4.5) 08/16/16 05:15 Basophils % 0.2 % (0-2.0) 08/16/16 05:15 Platelet Estimate Adequate (NORMAL) 08/13/16 15:45 Platelet Comment No clumping noted 08/13/16 15:45 Polychromasia 1+ 08/13/16 15:45 Hypochromic-Microcytic 2+ 08/15/16 05:20 Anisocytosis 3+ 08/15/16 05:20 Microcytosis 3+ 08/15/16 05:20 Ovalocytes 1+ 08/13/16 15:45 INR 1.66 (0.82-1.09) H 08/14/16 07:55 PTT (Actin FS) 30.9 SECONDS (26.9-34.4) 08/13/16 15:45 VBG pH 7.30 (7.32-7.42) L 08/13/16 15:54 POC VBG pCO2 49.2 mmHg (38-52) 08/13/16 15:54 POC VBG pO2 25.4 mmHg (28-48) L 08/13/16 15:54 Mixed VBG HCO3 23.4 meq/L (19-25) 08/13/16 15:54 Sodium 145 mmol/L (136-145) 08/18/16 05:35 Potassium 4.1 mmol/L (3.5-5.1) 08/18/16 05:35 Chloride 104 mmol/L (98-107) 08/18/16 05:35 Carbon Dioxide 30 mmol/L (21-32) 08/18/16 05:35 Anion Gap 11 (8-16) 08/18/16 05:35 BUN 68 mg/dL (7-18) H 08/18/16 05:35 Creatinine 1.4 mg/dL (0.7-1.3) H 08/18/16 05:35 Creat Clearance w eGFR 49.27 (>60) 08/18/16 05:35 Random Glucose 129 mg/dL (74-106) H 08/18/16 05:35 Lactic Acid 1.712 mmol/L (0.4-2.0) 08/14/16 07:55 Calcium 8.6 mg/dL (8.5-10.1) 08/18/16 05:35 Magnesium 2.7 mg/dL (1.8-2.4) H 08/16/16 05:15 Iron 15 ug/dL (38-169) L 08/13/16 15:50 TIBC 305 ug/dL (250-450) 08/13/16 15:50 Iron Saturation 5 % (15-55) L 08/13/16 15:50 Ferritin 28.597 ng/ml (16.4-293.9) 08/13/16 12:00 Total Bilirubin 1.3 mg/dL (0.2-1.0) H 08/18/16 05:35 AST 47 U/L (15-37) H 08/18/16 05:35 ALT 38 U/L (12-78) D 08/18/16 05:35 Alkaline Phosphatase 146 U/L (45-117) H 08/18/16 05:35 Creatine Kinase 67 IU/L (39-308) 08/13/16 15:45 Troponin I 0.06 ng/ml (0.00-0.05) H D 08/13/16 15:45 B-Natriuretic Peptide 26240.44 pg/ml (5-450) H 08/16/16 20:30 Total Protein 6.5 g/dl (6.4-8.2) 08/18/16 05:35 Albumin 2.3 g/dl (3.4-5.0) L 08/18/16 05:35 TSH 2.00 uIU/ml (0.358-3.74) 08/13/16 12:00 Stool Occult Blood Negative (NEGATIVE) 08/13/16 17:00 Blood Type A POSITIVE 08/13/16 15:45 Antibody Screen Negative 08/13/16 15:45 Crossmatch See Detail 08/13/16 15:45 tele: v-paced with intermittent Sinus beats vs. pvcs, brief nsvt EKG: biv-pacing with sinus beat vs. pvc Abd u/a: moderate amount of ascites in upper abdomen. Liver and spleen findings c/w cirrhosis. cath 08/02 all grafts patent (self to lad, svg to lcx, svg to rpda) echo 07/2016 (this admit): mod lve, sev reduced LV fn (global). mild rve with mild red global fn (severe TR, intrinsic RV fn likely more depressed), 1+ connie. 1 + mr, severe tr, mod phtn, pl effusion echo 07/2015: sev lve, sev reduced lvef (global). grade 2 diastolic dysfunction. nl RV. mild connie. dilated ivc. mod mr, mod-sev tr, sev phtn, mild pr. Echo 08/03: sev LVE with severe decr EF; mild RV dil with moderate hypo; mod MR/ TR; RVSP >60 est cct 36 mins Assessment/Plan 76 yo recent smoker (quit 6 mo ago) with h/o CAD s/p CABG, ischemic CM with EF 25% s/p BiVICD with secondary severe pulmonary hypertension, prior CVA, HL, copd, CKD, bph, chronic iron deficiency anemia who p/w worsened cough, sob, hypotension and noted to have profound anemia. Pre-operative clearance/anemia. -hgb stable since prbcs -RCRI of 3. Has estimated high risk for jd-operative CV complications. Would optimize cardiac/pulmonary status if safe to delay endoscopy. still with decompensated heart failure at this time. isch CMP (acute systolic CHF exacerbation) - s/p BiVICD --> routine outpatient monitoring. Last checked this month. Occasional brief nsvt noted on prior checks. - Patient's weight actually stable as outpatient in past month. Possible pulmonary congestion on CXR. ddx infection. trace le edema. After lasix 80 mg IV in ER last night, cr improved, but sodium worsened. Now s/p 2 units of PRBC and lasix 40 mg IV x 1 yesterday 08/14 with improvement in sodium, worsened again overnight. - 08/15: Patient overall comfortable. Unable to accurately assess I/O's, weights --> holding diuresis today so that he will definitively be net positive tomorrow and can reassess hypernatremia tomorrow and hepatic congestion. If worsens then will resume IV lasix. Patient with significant rhonchi and wheezes on exam. Also with moderate ascites on u/s. Frequent nsvt on tele. These findings remain concerning for heart failure exacerbation. Will repeat cxr in am. Echo. Replete electrolytes. Reluctant to add beta alondra while with active wheezes and unclear if he is decompensated. If needed overnight can start short acting low dose metoprolol. - 08/16: significant worsening of abdominal distension and edema without lasix yesterday. Initiating bid diuresis with lasix 80 mg IV BID. BMP this evening prior to second lasix dose to monitor sodium and potassium. Reluctant to add beta alondra while with active wheezes and unclear if he is decompensated. - 08/17: nsvt/ectopy improved with diuresis. Echo shows worsened RV function. Patient likely with acute decompensated HF and superimposed RV HF exacerbation. BUN rising. Will start milrinone to augment RV function and reduce pulmonary pressures. Con't bid lasix. -08/18: cont milrinone and iv lasix, cr stable today. cxr still with chf. - not on bb, aceI at home due to prior side effects of hypotension, dizziness. CAD s/p h/o CABG 2006 - holding ASA, plavix. If anti-platelets can be resumed, would consider resuming ASA alone. - no angina. ekg v-paced, troponins neg x 1 h/o CVA: -was on ASA, plavix --> on hold as above. NSVT - nsvt seen on prior ICD checks and on tele here as well. - electrolyte repletion prn. - con't telemetry monitoring. NSVT frequency improved with treatment of heart failure. Monitor for recurrence now that on milrinone PAT - no recurrence on recent ICD check. - brief episodes on tele here COPD: -still with wheezing, plan per pulm. On steroids
--- NOTE | 2016-08-18 10:26 | PN ---
Progress Note, Physician Chief Complaint: pt sleepy today placed on IV Milrinone did not eat breakfast Not speaking much - Current Medication List Current Medications: Active Medications Acetaminophen (Tylenol -) 650 mg PO Q6H PRN PRN Reason: FEVER OR PAIN Albuterol Sulfate (Ventolin 0.083% Nebulizer Soln -) 1 amp NEB QIDR [facility] Last Admin: 08/18/16 05:35 Dose: 1 amp Ascorbic Acid (Vitamin C -) 500 mg PO DAILY [facility] Last Admin: 08/17/16 09:53 Dose: 500 mg Atorvastatin Calcium (Lipitor -) 10 mg PO HS [facility] Last Admin: 08/17/16 22:00 Dose: 10 mg Chlorhexidine Gluconate (Hibiclens For Decolonization -) 1 applic TP HS [facility] Last Admin: 08/17/16 22:00 Dose: 1 applic Ferrous Sulfate (Feosol -) 325 mg PO DAILY [facility] Last Admin: 08/17/16 09:53 Dose: 325 mg Furosemide (Lasix Injection -) 80 mg IVPUSH BIDLASIX [facility] Last Admin: 08/18/16 06:06 Dose: 80 mg Milrinone Lactate/Dextrose (Milrinone 20mg/100ml Ivpb -) 100 mls @ 7.527 mls/ hr IVPB TITR [facility] PRN Reason: 0.375 MCG/KG/MIN Last Admin: 08/17/16 19:45 Dose: 7.527 mls/hr Mupirocin (Bactroban Ointment (For Decolonization) -) 1 applic NS BID [facility] Stop: 08/18/16 21:59 Last Admin: 08/17/16 21:59 Dose: 1 applic Polyethylene Glycol (Miralax (For Daily Use) -) 17 gm PO DAILY [facility] Last Admin: 08/17/16 13:17 Dose: 17 grams Prednisone (Deltasone -) 30 mg PO DAILY [facility] Ranitidine HCl (Zantac -) 150 mg PO BID [facility] Last Admin: 08/17/16 22:00 Dose: 150 mg - Objective Vital Signs: Vital Signs Temperature 98.6 F 08/18/16 06:00 Pulse Rate 96 H 08/18/16 08:00 Respiratory Rate 22 08/18/16 08:00 Blood Pressure 112/57 08/18/16 08:00 O2 Sat by Pulse Oximetry (%) 95 08/18/16 09:00 Constitutional: Yes: No Distress Cardiovascular: Yes: Regular Rate and Rhythm Respiratory: Yes: Diminished, Rales Gastrointestinal: Yes: Normal Bowel Sounds, Soft, Distention. No: Tenderness Edema: No Labs: CBC, BMP 08/17/16 05:15 08/18/16 05:35 INR, PTT INR 1.66 (0.82-1.09) H 08/14/16 07:55 Problem List - Problems (1) Anemia Code(s): D64.9 - ANEMIA, UNSPECIFIED Qualifiers: Anemia type: unspecified type Qualified Code(s): D64.9 - Anemia, unspecified (2) CHF (congestive heart failure) Code(s): I50.9 - HEART FAILURE, UNSPECIFIED Qualifiers: Congestive heart failure type: combined Congestive heart failure chronicity: acute on chronic Qualified Code(s): I50.43 - Acute on chronic combined systolic (congestive) and diastolic (congestive) heart failure (3) CKD (chronic kidney disease) Code(s): N18.9 - CHRONIC KIDNEY DISEASE, UNSPECIFIED Qualifiers: Chronic kidney disease stage: unspecified stage Qualified Code(s): N18.9 - Chronic kidney disease, unspecified (4) Hypotension Code(s): I95.9 - HYPOTENSION, UNSPECIFIED (5) CHF exacerbation Code(s): I50.9 - HEART FAILURE, UNSPECIFIED (6) COPD (chronic obstructive pulmonary disease) Code(s): J44.9 - CHRONIC OBSTRUCTIVE PULMONARY DISEASE, UNSPECIFIED Assessment/Plan PLAN CXR -- congestion On Lasix 80mg place keane for i and O On Iv Milrinone Hb stable spoke with daughter - Jean Carlos Garay-- told her of his prognosis -- discusses about advance directives-- she will speak with family and let us know for now, continue with current care BP monitoring
[2016-08-18] MEDS: POLYETHYLENE GLYCOL 3350 119 GM BTL PO SCH (11:04)
[2016-08-18] MEDS: RANITIDINE HCL 150 MG TABLET (FP) PO SCH ×2 (11:05→23:20)
[2016-08-18] MEDS: predniSONE 20 MG TABLET (UD) PO SCH (11:05)
[2016-08-18] MEDS: MUPIROCIN 2% TOPICAL OINTMENT FOR DECOLONIZATION NS SCH (11:05)
[2016-08-18] MEDS: ASCORBIC ACID 500 MG TABLET (FP) PO SCH (11:06)
[2016-08-18] MEDS: FERROUS SO4 325 MG TABLET (FP) PO SCH (11:06)
[2016-08-18] MEDS: CHLORHEXIDINE GLUCONATE 4% CLEANSER FOR DECOLONIZATION TP SCH (22:00)
[2016-08-18] MEDS: ATORVASTATIN CA 10 MG TABLET (FP) PO SCH (22:00)
[2016-08-19] MEDS: ALBUTEROL SO4 0.083% IH SOL 2.5 MG/3 ML VIAL.NEB. NEB SCH ×5 (05:37→23:49)
[2016-08-19] MEDS: FUROSEMIDE 40 MG/4 ML INJECTABLE VIAL IVPUSH SCH ×2 (06:00→13:52)
[2016-08-19 07:00] LABS: MCH 20.3 pg (25.7-33.7); MCHC 28.3 g/dl (32.0-35.9); MEAN CELL VOLUME 71.6 fl (80-96); MEAN PLT VOLUME 8.8 fl (7.5-11.1); PLATELET COUNT 195 K/MM3 (134-434); WHITE BLOOD COUNT 17.9 K/mm3 (4.0-10.0)
[2016-08-19 07:23] LABS: HYPOCHROMIA 2+; PLATELET ESTIMATE ADEQUATE (NORMAL); POLYCHROMASIA 1+
[2016-08-19 07:24] LABS: ANISOCYTOSIS 3+; MICROCYTOSIS 2+; OVALOCYTES 1+; POIKILOCYTOSIS 1+; TARGET CELLS FEW
[2016-08-19 07:41] LABS: CALCIUM 8.3 mg/dL (8.5-10.1); CREATININE 1.4 mg/dL (0.7-1.3)
--- NOTE | 2016-08-19 09:03 | PN ---
Progress Note (short form) - Note Progress Note: Patient seen and examined in the ICU. Sleepy but easily arousable. Milrinone needed to be stopped due to hypotension yesterday. Tolerating Lasix. Denies chest pain. Still with some congested cough with white/clear sputum. No acute bleeding overnight. No fevers or chills. Elevated WBC likely due to steroids. OBJECTIVE: Laboratory Results - last 24 hr 08/19/16 08/19/16 05:27 05:27 WBC 17.9 H RBC 4.18 Hgb 8.5 L Hct 30.0 L MCV 71.6 L MCHC 28.3 L RDW 25.0 H Plt Count 195 D MPV 8.8 Platelet Estimate Adequate Platelet Comment No clumping noted Polychromasia 1+ Hypochromic-Microcytic 2+ Poikilocytosis 1+ Basophilic Stippling Few Anisocytosis 3+ Microcytosis 2+ Target Cells Few Ovalocytes 1+ Sodium 147 H Potassium 3.5 Chloride 106 Carbon Dioxide 29 Anion Gap 12 BUN 70 H Creatinine 1.4 H Random Glucose 140 H Calcium 8.3 L Gen: Awake and alert Heart: RRR Lung: (+) Scattered mild Inspiratory wheeze and bibasilar rales Abd: soft, nontender Ext: Less edema Laboratory Results - last 24 hr 08/19/16 08/19/16 05:27 05:27 WBC 17.9 H RBC 4.18 Hgb 8.5 L Hct 30.0 L MCV 71.6 L MCHC 28.3 L RDW 25.0 H Plt Count 195 D MPV 8.8 Platelet Estimate Adequate Platelet Comment No clumping noted Polychromasia 1+ Hypochromic-Microcytic 2+ Poikilocytosis 1+ Basophilic Stippling Few Anisocytosis 3+ Microcytosis 2+ Target Cells Few Ovalocytes 1+ Sodium 147 H Potassium 3.5 Chloride 106 Carbon Dioxide 29 Anion Gap 12 BUN 70 H Creatinine 1.4 H Random Glucose 140 H Calcium 8.3 L ASSESSMENT AND PLAN: Acute Respiratory Distress resolving Acute COPD Exacerbation Severe LV Systolic Dysfunction Lactic Acidosis resolved Anemia s/p PRBC transfusions Acute on Chronic Renal Failure CAD s/p CABG Volume Overload - Lasix - monitor urine output, creatinine - monitor H/H - Prednisone - inhaled bronchodilators (hold anticholinergic agents) - DVT/GI prophylaxis - Monitor off Milrinone - Cardiac telemetry monitoring Dr Stuart Critical care time spent reviewing chart, evaluating patient and formulating plan 35 min
--- NOTE | 2016-08-19 09:13 | PN ---
Progress Note, Physician Chief Complaint: Milrinone dc today appears weak, depressed - Current Medication List Current Medications: Active Medications Acetaminophen (Tylenol -) 650 mg PO Q6H PRN PRN Reason: FEVER OR PAIN Last Admin: 08/18/16 23:21 Dose: 650 mg Albuterol Sulfate (Ventolin 0.083% Nebulizer Soln -) 1 amp NEB QIDR [facility] Last Admin: 08/19/16 05:37 Dose: 1 amp Ascorbic Acid (Vitamin C -) 500 mg PO DAILY [facility] Last Admin: 08/18/16 11:06 Dose: 500 mg Atorvastatin Calcium (Lipitor -) 10 mg PO HS [facility] Last Admin: 08/18/16 22:00 Dose: 10 mg Chlorhexidine Gluconate (Hibiclens For Decolonization -) 1 applic TP [facility] Last Admin: 08/18/16 22:00 Dose: 1 applic Ferrous Sulfate (Feosol -) 325 mg PO DAILY [facility] Last Admin: 08/18/16 11:06 Dose: 325 mg Furosemide (Lasix Injection -) 80 mg IVPUSH BIDLASIX [facility] Last Admin: 08/19/16 06:00 Dose: 80 mg Polyethylene Glycol (Miralax (For Daily Use) -) 17 gm PO DAILY [facility] Last Admin: 08/18/16 11:04 Dose: 17 grams Prednisone (Deltasone -) 30 mg PO DAILY [facility] Last Admin: 08/18/16 11:05 Dose: 30 mg Ranitidine HCl (Zantac -) 150 mg PO BID [facility] Last Admin: 08/18/16 23:20 Dose: 150 mg - Objective Vital Signs: Vital Signs Temperature 98 F 08/19/16 06:00 Pulse Rate 90 08/19/16 08:00 Respiratory Rate 18 08/19/16 08:00 Blood Pressure 102/64 08/19/16 08:00 O2 Sat by Pulse Oximetry (%) 97 08/18/16 21:00 Constitutional: Yes: No Distress Cardiovascular: Yes: Regular Rate and Rhythm, Murmur Respiratory: Yes: Diminished Gastrointestinal: Yes: Normal Bowel Sounds, Soft, Distention. No: Tenderness Edema: No Labs: CBC, BMP 08/19/16 05:27 08/19/16 05:27 INR, PTT INR 1.66 (0.82-1.09) H 08/14/16 07:55 Problem List - Problems (1) Anemia Code(s): D64.9 - ANEMIA, UNSPECIFIED Qualifiers: Anemia type: unspecified type Qualified Code(s): D64.9 - Anemia, unspecified (2) CHF (congestive heart failure) Code(s): I50.9 - HEART FAILURE, UNSPECIFIED Qualifiers: Congestive heart failure type: combined Congestive heart failure chronicity: acute on chronic Qualified Code(s): I50.43 - Acute on chronic combined systolic (congestive) and diastolic (congestive) heart failure (3) CKD (chronic kidney disease) Code(s): N18.9 - CHRONIC KIDNEY DISEASE, UNSPECIFIED Qualifiers: Chronic kidney disease stage: unspecified stage Qualified Code(s): N18.9 - Chronic kidney disease, unspecified (4) Hypotension Code(s): I95.9 - HYPOTENSION, UNSPECIFIED (5) CHF exacerbation Code(s): I50.9 - HEART FAILURE, UNSPECIFIED (6) COPD (chronic obstructive pulmonary disease) Code(s): J44.9 - CHRONIC OBSTRUCTIVE PULMONARY DISEASE, UNSPECIFIED Assessment/Plan PLAN condition remains the same, no improvement On Lasix 80mg keane for i and O iv Milrinone dc yesterday as pt became hypotensive Hb stable family came yesterday and appointed HCP , no advance directives yet palliative consult for now, continue with current care BP monitoring
[2016-08-19] MEDS: predniSONE 20 MG TABLET (UD) PO SCH (09:45)
[2016-08-19] MEDS: POLYETHYLENE GLYCOL 3350 119 GM BTL PO SCH (09:46)
[2016-08-19] MEDS: ASCORBIC ACID 500 MG TABLET (FP) PO SCH (09:46)
[2016-08-19] MEDS: FERROUS SO4 325 MG TABLET (FP) PO SCH (09:46)
[2016-08-19] MEDS: RANITIDINE HCL 150 MG TABLET (FP) PO SCH ×2 (09:46→21:07)
--- NOTE | 2016-08-19 11:50 | PN ---
Progress Note (short form) - Note Progress Note: CC: anemia/chf exacerbation S: no cp, palps, dizziness, sob, orthopnea Current Medications Generic Name Dose Route Start Last Admin Trade Name Freq PRN Reason Stop Dose Admin Acetaminophen 650 mg 08/15/16 08:06 08/18/16 23:21 Tylenol - PO 650 mg Q6H PRN Administration FEVER OR PAIN Albuterol Sulfate 1 amp 08/16/16 12:30 08/19/16 11:40 Ventolin 0.083% Nebulizer Soln - NEB 1 amp QIDR [facility] Administration Ascorbic Acid 500 mg 08/16/16 10:00 08/19/16 09:46 Vitamin C - PO 500 mg DAILY [facility] Administration Atorvastatin Calcium 10 mg 08/15/16 22:00 08/18/16 22:00 Lipitor - PO 10 mg HS [facility] Administration Chlorhexidine Gluconate 1 applic 08/15/16 22:00 08/18/16 22:00 Hibiclens For Decolonization - TP 1 applic HS [facility] Administration Ferrous Sulfate 325 mg 08/16/16 10:00 08/19/16 09:46 Feosol - PO 325 mg DAILY [facility] Administration Furosemide 80 mg 08/17/16 06:00 08/19/16 06:00 Lasix Injection - IVPUSH 80 mg BIDLASIX [facility] Administration Polyethylene Glycol 17 gm 08/16/16 10:00 08/19/16 09:46 Miralax (For Daily Use) - PO 17 grams DAILY [facility] Administration Prednisone 30 mg 08/18/16 10:00 08/19/16 09:45 Deltasone - PO 30 mg DAILY [facility] Administration Ranitidine HCl 150 mg 08/17/16 22:00 08/19/16 09:46 Zantac - PO 150 mg BID [facility] Administration Vital Signs Period Temp Pulse Resp BP Sys/Vega Pulse Ox Last 24 Hr 97.8 F-98.2 F 89-100 17-21 87-104/56-69 97-98 Constitutional: Yes: Well Nourished, No Distress Eyes: No: Sclera Icterus Respiratory: Yes: diffuse rhonchi No: Accessory Muscle Use, Wheezes Gastrointestinal: Yes: Normal Bowel Sounds. + Distention, No Hepatomegaly, Palpable Mass, Tenderness Cardiovascular: Yes: Regular Rate and Rhythm (soft heart sounds) JVD: Yes Heart Sounds: Yes: S1, S2. No: Gallop Murmur: 2/6 high pitched sys murmur at lsb and apex Extremities: No: Cold, Cyanosis Edema: no le edema/c/c Peripheral Pulses:+dp pt Integumentary: No: Jaundice diaphoresis Neurological: Yes: Alert, appropriate Psychiatric: No: Agitated - Other Data Labs, Other Data: CBC, BMP 08/19/16 05:27 08/19/16 05:27 tele: v-paced with intermittent Sinus beats vs. pvcs, occasional brief runs NSVT EKG: biv-pacing with sinus beat vs. pvc Abd u/a: moderate amount of ascites in upper abdomen. Liver and spleen findings c/w cirrhosis. cath 08/02 all grafts patent (self to lad, svg to lcx, svg to rpda) echo 07/2016 (this admit): mod lve, sev reduced LV fn (global). mild rve with mild red global fn (severe TR, intrinsic RV fn likely more depressed), 1+ connie. 1 + mr, severe tr, mod phtn, pl effusion echo 07/2015: sev lve, sev reduced lvef (global). grade 2 diastolic dysfunction. nl RV. mild connie. dilated ivc. mod mr, mod-sev tr, sev phtn, mild pr. Echo 08/03: sev LVE with severe decr EF; mild RV dil with moderate hypo; mod MR/ TR; RVSP >60 Assessment/Plan 76 yo recent smoker (quit 6 mo ago) with h/o CAD s/p CABG, ischemic CM with EF 25% s/p BiVICD with secondary severe pulmonary hypertension, prior CVA, HL, copd, CKD, bph, chronic iron deficiency anemia who p/w worsened cough, sob, hypotension and noted to have profound anemia. Pre-operative clearance/anemia. -hgb stable since prbcs -RCRI of 3. Has estimated high risk for jd-operative CV complications. Would optimize cardiac/pulmonary status if safe to delay endoscopy. still with decompensated heart failure at this time. isch CMP (acute systolic CHF exacerbation) - s/p BiVICD --> routine outpatient monitoring. Last checked this month. Occasional brief nsvt noted on prior checks. - Patient's weight actually stable as outpatient in past month. Possible pulmonary congestion on CXR. ddx infection. trace le edema. After lasix 80 mg IV in ER last night, cr improved, but sodium worsened. Now s/p 2 units of PRBC and lasix 40 mg IV x 1 yesterday 08/14 with improvement in sodium, worsened again overnight. - 08/15: Patient overall comfortable. Unable to accurately assess I/O's, weights --> holding diuresis today so that he will definitively be net positive tomorrow and can reassess hypernatremia tomorrow and hepatic congestion. If worsens then will resume IV lasix. Patient with significant rhonchi and wheezes on exam. Also with moderate ascites on u/s. Frequent nsvt on tele. These findings remain concerning for heart failure exacerbation. Will repeat cxr in am. Echo. Replete electrolytes. Reluctant to add beta alondra while with active wheezes and unclear if he is decompensated. If needed overnight can start short acting low dose metoprolol. - 08/16: significant worsening of abdominal distension and edema without lasix yesterday. Initiating bid diuresis with lasix 80 mg IV BID. BMP this evening prior to second lasix dose to monitor sodium and potassium. Reluctant to add beta alondra while with active wheezes and unclear if he is decompensated. - 08/17: nsvt/ectopy improved with diuresis. Echo shows worsened RV function. Patient likely with acute decompensated HF and superimposed RV HF exacerbation. BUN rising. Will start milrinone to augment RV function and reduce pulmonary pressures. Con't bid lasix. -08/18: cont milrinone and iv lasix, cr stable today. cxr still with chf. -08/19: milrinone stopped yesterday due to hypotension. clinically seems less vol overloaded. cr stable. cont iv lasix. will check cxr tomorrow am to monitor progress. - not on bb, aceI at home due to prior side effects of hypotension, dizziness. CAD s/p h/o CABG 2006 - holding ASA, plavix. If anti-platelets can be resumed, would consider resuming ASA alone. - no angina or signs acs h/o CVA: -was on ASA, plavix --> on hold as above. NSVT - nsvt seen on prior ICD checks and on tele here as well. - electrolyte repletion prn. - con't telemetry monitoring. - if bp improves would try low dose bb PAT - no recurrence on recent ICD check. - brief episodes on tele here COPD: -On steroids, pulm following
[2016-08-19] MEDS: CHLORHEXIDINE GLUCONATE 4% CLEANSER FOR DECOLONIZATION TP SCH (21:07)
[2016-08-19] MEDS: ATORVASTATIN CA 10 MG TABLET (FP) PO SCH (21:07)
[2016-08-20] MEDS: ALBUTEROL SO4 0.083% IH SOL 2.5 MG/3 ML VIAL.NEB. NEB SCH ×4 (06:29→23:18)
[2016-08-20] MEDS: FUROSEMIDE 40 MG/4 ML INJECTABLE VIAL IVPUSH SCH ×3 (06:49→20:58)
[2016-08-20 06:52] LABS: CALCIUM 8.4 mg/dL (8.5-10.1); CREATININE 1.2 mg/dL (0.7-1.3); MAGNESIUM 2.5 mg/dL (1.8-2.4); PHOSPHOROUS 3.7 mg/dL (2.5-4.9)
[2016-08-20] MEDS ORDERED: POTASSIUM CHLORIDE ORAL LIQUID 20 MEQ/15 ML PO ONE (07:12)
[2016-08-20 08:08] LABS: BASOPHIL 0.2 % (0-2.0); MCH 20.1 pg (25.7-33.7); MCHC 27.8 g/dl (32.0-35.9); MEAN CELL VOLUME 72.4 fl (80-96); MEAN PLT VOLUME 8.8 fl (7.5-11.1); NEUTROPHILS 89.4 % (42.8-82.8); PLATELET COUNT 170 K/MM3 (134-434); RDW 26.5 % (11.9-15.9); WHITE BLOOD COUNT 16.9 K/mm3 (4.0-10.0)
--- NOTE | 2016-08-20 08:20 | PN ---
Progress Note (short form) - Note Progress Note: Subjective Patient seen and examined in the ICU. Chart reviewed. Condition remains the same. Mild SOB present. Off Milrinone. Objective Last Vital Signs Temp Pulse Resp BP Pulse Ox 98 F 85 18 106/70 100 08/20/16 06:00 08/20/16 09:49 08/20/16 08:00 08/20/16 08:00 08/20/16 09:49 CBC, BMP 08/20/16 05:20 08/20/16 05:20 Laboratory Results - last 24 hr 08/20/16 08/20/16 05:20 05:20 WBC 16.9 H RBC 4.28 Hgb 8.6 L Hct 31.0 L MCV 72.4 L MCHC 27.8 L RDW 26.5 H Plt Count 170 MPV 8.8 Neutrophils % 89.4 H Lymphocytes % 2.9 L D Monocytes % 7.5 D Eosinophils % 0.0 Basophils % 0.2 Sodium 151 H Potassium 3.3 L Chloride 108 H Carbon Dioxide 32 Anion Gap 11 BUN 66 H Creatinine 1.2 Random Glucose 111 H D Calcium 8.4 L Phosphorus 3.7 Magnesium 2.5 H Physical Exam Constitutional: Yes: No Distress Cardiovascular: Yes: Regular Rate and Rhythm, Murmur Respiratory: Yes: Diminished at bases. Gastrointestinal: Yes: Normal Bowel Sounds, Soft, Distention. No: Tenderness Edema: No Assessment and Plan Clinically remains the same. Overall condition gaurded. Meds reviewed. Continue present care. Taper steroids slowly. Fix electrolytes. Can transfer to telemetry. Will follow. Documentation prepared by Kaitlin Thompson, acting as a anesthesiology medical doctor for Purnima Driscoll MD. <Kaitlin Thompson - Last Filed: 08/20/16 09:55> Problem List - Problems (1) Anemia Code(s): D64.9 - ANEMIA, UNSPECIFIED Qualifiers: Anemia type: unspecified type Qualified Code(s): D64.9 - Anemia, unspecified (2) CHF (congestive heart failure) Code(s): I50.9 - HEART FAILURE, UNSPECIFIED Qualifiers: Congestive heart failure type: combined Congestive heart failure chronicity: acute on chronic Qualified Code(s): I50.43 - Acute on chronic combined systolic (congestive) and diastolic (congestive) heart failure (3) CKD (chronic kidney disease) Code(s): N18.9 - CHRONIC KIDNEY DISEASE, UNSPECIFIED Qualifiers: Chronic kidney disease stage: unspecified stage Qualified Code(s): N18.9 - Chronic kidney disease, unspecified (4) COPD (chronic obstructive pulmonary disease) Code(s): J44.9 - CHRONIC OBSTRUCTIVE PULMONARY DISEASE, UNSPECIFIED (5) Hypotension Code(s): I95.9 - HYPOTENSION, UNSPECIFIED (6) Lactic acid blood increased Code(s): R79.89 - OTHER SPECIFIED ABNORMAL FINDINGS OF BLOOD CHEMISTRY (7) Pacemaker Code(s): Z95.0 - PRESENCE OF CARDIAC PACEMAKER <Purnima Driscoll - Last Filed: 08/20/16 08:20>
--- NOTE | 2016-08-20 10:03 | PN ---
Progress Note, Physician Chief Complaint: chf, copd History of Present Illness: states he still feels sob, not at his baseline--though better than when admitted no cp no palpit no dizzy - Current Medication List Current Medications: Active Medications Acetaminophen (Tylenol -) 650 mg PO Q6H PRN PRN Reason: FEVER OR PAIN Last Admin: 08/18/16 23:21 Dose: 650 mg Albuterol Sulfate (Ventolin 0.083% Nebulizer Soln -) 1 amp NEB QIDR [facility] Last Admin: 08/20/16 06:29 Dose: 1 amp Ascorbic Acid (Vitamin C -) 500 mg PO DAILY [facility] Last Admin: 08/19/16 09:46 Dose: 500 mg Atorvastatin Calcium (Lipitor -) 10 mg PO HS [facility] Last Admin: 08/19/16 21:07 Dose: 10 mg Chlorhexidine Gluconate (Hibiclens For Decolonization -) 1 applic TP [facility] Last Admin: 08/19/16 21:07 Dose: 1 applic Ferrous Sulfate (Feosol -) 325 mg PO DAILY [facility] Last Admin: 08/19/16 09:46 Dose: 325 mg Furosemide (Lasix Injection -) 80 mg IVPUSH BIDLASIX [facility] Last Admin: 08/20/16 06:49 Dose: 80 mg Polyethylene Glycol (Miralax (For Daily Use) -) 17 gm PO DAILY [facility] Last Admin: 08/19/16 09:46 Dose: 17 grams Potassium Chloride (K-Dur -) 40 meq PO ONCE ONE Stop: 08/20/16 12:01 Prednisone (Deltasone -) 30 mg PO DAILY [facility] Last Admin: 08/19/16 09:45 Dose: 30 mg Ranitidine HCl (Zantac -) 150 mg PO BID [facility] Last Admin: 08/19/16 21:07 Dose: 150 mg - Objective Vital Signs: Vital Signs Temperature 98 F 08/20/16 06:00 Pulse Rate 85 08/20/16 09:49 Respiratory Rate 18 08/20/16 08:00 Blood Pressure 106/70 08/20/16 08:00 O2 Sat by Pulse Oximetry (%) 100 08/20/16 09:49 Constitutional: Yes: Well Nourished, No Distress, Calm Cardiovascular: Yes: Regular Rate and Rhythm, JVD (++), Murmur (loud HSM LLSB), S1, S2. No: Gallop Respiratory: Yes: Regular, Wheezes (bilat lower). No: Accessory Muscle Use, Rales Extremities: No: Cold Edema: No Neurological: Yes: Alert. No: Seizure Psychiatric: No: Agitated Labs: CBC, BMP 08/20/16 05:20 08/20/16 05:20 INR, PTT INR 1.66 (0.82-1.09) H 08/14/16 07:55 - ....Imaging EKG: Other (tele: NSR; runs NSVT to 13b max) Assessment/Plan Abd u/a: moderate amount of ascites in upper abdomen. Liver and spleen findings c/w cirrhosis. cath 08/02 all grafts patent (self to lad, svg to lcx, svg to rpda) Echo 07/2016 (this admit): mod lve, sev reduced LV fn (global). mild rve with mild hypo (severe TR, intrinsic RV fn likely more depressed), 1+ connie. 1+ mr, severe tr, mod phtn, pl effusion Echo 07/2015: sev lve, sev reduced lvef (global). grade 2 diastolic dysfunction. nl RV. mild connie. dilated ivc. mod mr, mod-sev tr, sev phtn, mild pr. Echo 08/03: sev LVE with severe decr EF; mild RV dil with moderate hypo; mod MR/ TR; RVSP >60 Assessment/Plan 76 yo recent smoker (quit 6 mo ago) with h/o CAD s/p CABG, ischemic CM with EF 25% s/p BiVICD with secondary severe pulmonary hypertension, prior CVA, HL, copd, CKD, bph, chronic iron deficiency anemia who p/w worsened cough, sob, hypotension and noted to have profound anemia. Pre-operative clearance/anemia. -hgb stable since prbcs transfused -RCRI of 3 with decompensated chf and low bp here. Has estimated high risk for jd-operative CV complications. Would optimize cardiac/pulmonary status if safe to delay endoscopy. still with decompensated heart failure at this time. isch CMP (acute systolic CHF exacerbation) - s/p BiVICD --> routine outpatient monitoring. Last checked this month. Occasional brief nsvt noted on prior checks. - Patient's weight actually stable as outpatient in past month. Possible pulmonary congestion on CXR. ddx infection. trace le edema. After lasix 80 mg IV in ER last night, cr improved, but sodium worsened. Now s/p 2 units of PRBC and lasix 40 mg IV x 1 yesterday 08/14 with improvement in sodium, worsened again overnight. - 08/15: Patient overall comfortable. Unable to accurately assess I/O's, weights --> holding diuresis today so that he will definitively be net positive tomorrow and can reassess hypernatremia tomorrow and hepatic congestion. If worsens then will resume IV lasix. Patient with significant rhonchi and wheezes on exam. Also with moderate ascites on u/s. Frequent nsvt on tele. These findings remain concerning for heart failure exacerbation. Will repeat cxr in am. Echo. Replete electrolytes. Reluctant to add beta alondra while with active wheezes and unclear if he is decompensated. If needed overnight can start short acting low dose metoprolol. - 08/16: significant worsening of abdominal distension and edema without lasix yesterday. Initiating bid diuresis with lasix 80 mg IV BID. BMP this evening prior to second lasix dose to monitor sodium and potassium. Reluctant to add beta alondra while with active wheezes and unclear if he is decompensated. - 08/17: nsvt/ectopy improved with diuresis. Echo shows worsened RV function. Patient likely with acute decompensated HF and superimposed RV HF exacerbation. BUN rising. Will start milrinone to augment RV function and reduce pulmonary pressures. Con't bid lasix. -08/18: cont milrinone and iv lasix, cr stable today. cxr still with chf. -08/19: milrinone stopped yesterday due to hypotension. clinically seems less vol overloaded. cr stable. cont iv lasix. will check cxr tomorrow am to monitor progress. -08/20: bnp 13K here initially, up to 17K (prior range 2K-5K) -no weights; ++JVD persists, renal fxn improving -cxr reviewed: improving vs prior (L effusion resolved), overpenetrated film vs prior confounds--some chf changes persist -he is likely still signif volume overloaded; he may have JVD even when at target wt due to severe TR and RV dysfunction, although i do not think he is at target wt based on cxr appearance and JVD to jaw; -will increase lasix (to 80 iv TID), follow [facility] (lakhwinder) -if does not diurese well or becomes hypotensive, will need to resume milrinone with pressors (dopa if ventric ectopy can tolerate; otherwise vasopressin) - not on bb, aceI at home due to prior side effects of hypotension, dizziness. CAD s/p h/o CABG 2006 - holding ASA, plavix. If anti-platelets can be resumed, would consider resuming ASA alone. - no angina or signs acs h/o CVA: -was on ASA, plavix --> on hold as above. V Tach: - nsvt seen on prior ICD checks and on tele here as well. - electrolyte repletion prn. - con't telemetry monitoring. - if bp improves would try low dose bb PAT - no recurrence on recent ICD check. - brief episodes on tele here a.e. COPD: -On steroids, pulm following est crit care time 35min
[2016-08-20] MEDS: predniSONE 20 MG TABLET (UD) PO SCH (10:21)
[2016-08-20] MEDS: POLYETHYLENE GLYCOL 3350 119 GM BTL PO SCH (10:22)
[2016-08-20] MEDS: FERROUS SO4 325 MG TABLET (FP) PO SCH (10:22)
[2016-08-20] MEDS: RANITIDINE HCL 150 MG TABLET (FP) PO SCH ×2 (10:22→21:23)
[2016-08-20] MEDS: ASCORBIC ACID 500 MG TABLET (FP) PO SCH (10:22)
--- NOTE | 2016-08-20 10:58 | PN ---
Addendum entered and electronically signed by Lennox Laura RES 08/20/16 11:08 : fat and sodium controlled diet Original Note: Physical Exam: SUBJECTIVE: Patient seen and examined patient states that his breathing has improved since before. denies chest pain, palpitations, dizziness. patient lying comfortably in bed and was eating his breakfast OBJECTIVE: Vital Signs Period Temp Pulse Resp BP Sys/Vega Pulse Ox Last 24 Hr 97.9 F-98.2 F 78-94 14-18 94-106/57-94 98-100 GENERAL: The patient is awake, alert, and fully oriented, in no acute distress. HEAD: Normal with no signs of trauma. EYES: PERRL, ENT: dry mucous membranes. LUNGS: b/l wheezing at base, no crepts, no accessory muscle use HEART: s1s2 normal. ABDOMEN: Soft, nontender, normoactive bowel sounds, no guarding, no rebound, EXTREMITIES: well-perfused, no pedal edema PSYCH: Normal mood, normal affect. Laboratory Results - last 24 hr 08/20/16 08/20/16 05:20 05:20 WBC 16.9 H RBC 4.28 Hgb 8.6 L Hct 31.0 L MCV 72.4 L MCHC 27.8 L RDW 26.5 H Plt Count 170 MPV 8.8 Neutrophils % 89.4 H Lymphocytes % 2.9 L D Monocytes % 7.5 D Eosinophils % 0.0 Basophils % 0.2 Sodium 151 H Potassium 3.3 L Chloride 108 H Carbon Dioxide 32 Anion Gap 11 BUN 66 H Creatinine 1.2 Random Glucose 111 H D Calcium 8.4 L Phosphorus 3.7 Magnesium 2.5 H Active Medications Generic Name Dose Route Start Last Admin Trade Name Freq PRN Reason Stop Dose Admin Acetaminophen 650 mg 08/20/16 10:41 Tylenol - PO Q6H PRN FEVER OR PAIN Albuterol Sulfate 1 amp 08/20/16 12:00 Ventolin 0.083% Nebulizer Soln - NEB QIDR [facility] Ascorbic Acid 500 mg 08/21/16 10:00 Vitamin C - PO DAILY [facility] Atorvastatin Calcium 10 mg 08/20/16 22:00 Lipitor - PO HS [facility] Chlorhexidine Gluconate 1 applic 08/20/16 22:00 Hibiclens For Decolonization - TP HS [facility] Ferrous Sulfate 325 mg 08/21/16 10:00 Feosol - PO DAILY [facility] Furosemide 80 mg 08/20/16 14:00 Lasix Injection - IVPUSH 0600,1400,2000 [facility] Polyethylene Glycol 17 gm 08/21/16 10:00 Miralax (For Daily Use) - PO DAILY [facility] Potassium Chloride 40 meq 08/20/16 12:00 K-Dur - PO 08/20/16 12:01 ONCE ONE Prednisone 20 mg 08/21/16 10:00 Deltasone - PO DAILY [facility] Ranitidine HCl 150 mg 08/20/16 22:00 Zantac - PO BID [facility] ASSESSMENT/PLAN: Respiratory dostress colud be due COPD excerbration ,anemia, and chf excerbration breathing improved, wheezing present at basis. prednisone decreased to 20mg dily on albuterol neb continue with lasix 80 mg bid, negative 1800 maintain negative balance daily weight monitor intake/ output cardiology on case. severe microcytic anemia hb stable s/p blood transfusion stool occult negative on ferrous sulphate Lactic acidosis improved h/o copd on albuterol and prednisone smoking cessation ( last time smoked around 5 -6 months ago) manjinder on ckd improved cr 1.2 avoid nephrotoxic drugs monitor creatnine h/o CAD CABG in 2006 trop i negative cardiology on case aspirin and plavix on hold in view of anemia h/o CVA with right side weakness aspirin and plavix on hold in view of anemia fluid : orally allowed electrolyte; repeat in am nutrition:regular diet dvt pro: b/l scd gi pro: pepcid po dispo: transfer to tele Visit type - Emergency Visit Emergency Visit: Yes ED Registration Date: 08/13/16 Care time: The patient presented to the Emergency Department on the above date and was hospitalized for further evaluation of their emergent condition. - New Patient This patient is new to me today: No - Critical Care Critical Care patient: Yes Total Critical Care Time (in minutes): 45 Critical Care Statement: The care of this patient involved high complexity decision making to prevent further life threatening deterioration of the patient 's condition and/or to evalute & treat vital organ system(s) failure or risk of failure.
[2016-08-20] MEDS ORDERED: POTASSIUM CHLORIDE TABS 20 MEQ TABLET.ER (FP) PO ONE ×2 (12:00)
--- NOTE | 2016-08-20 12:10 | PN ---
Teaching Attending Note Name of Resident: Lennox Laura ATTENDING PHYSICIAN STATEMENT I saw and evaluated the patient. I reviewed the resident's note and discussed the case with the resident. I agree with the resident's findings and plan as documented. SUBJECTIVE: Pt seen and examined in the ICU. Milrinone stopped yesterday due to hypotension. Breathing improving. No chest pain. OBJECTIVE: Last Vital Signs Temp Pulse Resp BP Pulse Ox 98.0 F 85 16 104/69 100 08/20/16 10:00 08/20/16 10:00 08/20/16 10:08/20/16 10:08/20/16 09:49 Intake & Output 08/17/16 08/18/16 08/19/16 08/20/16 23:59 23:59 23:59 23:59 Intake Total 1120 1133.2 835 Output Total 1725 1050 2725 450 Balance -605 83.2 -1890 -450 Weight 147 lb 8 oz 152 lb 2 oz 149 lb 4.047 oz 149 lb 7.574 oz Gen: NAD at rest Heart: RRR, +systolic murmur Lung: scattered rhonchi Abd: soft, nontender Ext: no edema CBC, BMP 08/20/16 05:20 08/20/16 05:20 Active Medications Acetaminophen (Tylenol -) 650 mg PO Q6H PRN PRN Reason: FEVER OR PAIN Albuterol Sulfate (Ventolin 0.083% Nebulizer Soln -) 1 amp NEB QIDR [facility] Last Admin: 08/20/16 11:44 Dose: 1 amp Ascorbic Acid (Vitamin C -) 500 mg PO DAILY [facility] Atorvastatin Calcium (Lipitor -) 10 mg PO HS [facility] Chlorhexidine Gluconate (Hibiclens For Decolonization -) 1 applic TP HS [facility] Ferrous Sulfate (Feosol -) 325 mg PO DAILY [facility] Furosemide (Lasix Injection -) 80 mg IVPUSH 0600,1400,2000 [facility] Polyethylene Glycol (Miralax (For Daily Use) -) 17 gm PO DAILY [facility] Prednisone (Deltasone -) 20 mg PO DAILY [facility] Ranitidine HCl (Zantac -) 150 mg PO BID [facility] ASSESSMENT AND PLAN: Acute Respiratory Distress resolving Acute COPD Exacerbation Acute on Chronic Severe LV Systolic Dysfunction Lactic Acidosis resolved Anemia s/p PRBC transfusions Acute on Chronic Renal Failure CAD s/p CABG - continue lasix - monitor urine output, creatinine - monitor H/H - taper empiric steroids - inhaled bronchodilators - replete lytes - DVT/GI prophylaxis - can monitor telemetry
[2016-08-20] MEDS ORDERED: POTASSIUM CHLORIDE ORAL LIQUID 20 MEQ/15 ML ONE (15:22)
[2016-08-20] MEDS: CHLORHEXIDINE GLUCONATE 4% CLEANSER FOR DECOLONIZATION TP SCH (21:02)
[2016-08-20] MEDS: ATORVASTATIN CA 10 MG TABLET (FP) PO SCH (21:23)
[2016-08-21] MEDS: ACETAMINOPHEN 325 MG TABLET (FP) PO PRN (04:16)
[2016-08-21] MEDS: FUROSEMIDE 40 MG/4 ML INJECTABLE VIAL IVPUSH SCH ×3 (06:18→20:55)
[2016-08-21] MEDS: ALBUTEROL SO4 0.083% IH SOL 2.5 MG/3 ML VIAL.NEB. NEB SCH ×4 (06:23→23:15)
[2016-08-21 07:43] LABS: MCH 20.2 pg (25.7-33.7); MCHC 28.5 g/dl (32.0-35.9); MEAN CELL VOLUME 71.2 fl (80-96); MEAN PLT VOLUME 8.9 fl (7.5-11.1); NEUTROPHILS 87.5 % (42.8-82.8); PLATELET COUNT 179 K/MM3 (134-434); WHITE BLOOD COUNT 18.2 K/mm3 (4.0-10.0)
[2016-08-21 07:49] LABS: CALCIUM 8.4 mg/dL (8.5-10.1); COCKROFT - GAULT 50.22; CREATININE 1.1 mg/dL (0.7-1.3)
--- NOTE | 2016-08-21 09:30 | PN ---
Progress Note (short form) - Note Progress Note: Chief Complaint: chf, copd History of Present Illness: states he still feels sob, not at his baseline--though better than when admitted. + abdominal distension, fullness and early satiety. no cp no palpit no dizzy Current Medications Acetaminophen (Tylenol -) 650 mg PO Q6H PRN PRN Reason: FEVER OR PAIN Last Admin: 08/21/16 04:16 Dose: 650 mg Albuterol Sulfate (Ventolin 0.083% Nebulizer Soln -) 1 amp NEB QIDR [facility] Last Admin: 08/21/16 06:23 Dose: 1 amp Ascorbic Acid (Vitamin C -) 500 mg PO DAILY [facility] Atorvastatin Calcium (Lipitor -) 10 mg PO HS [facility] Last Admin: 08/20/16 21:23 Dose: 10 mg Chlorhexidine Gluconate (Hibiclens For Decolonization -) 1 applic TP [facility] Last Admin: 08/20/16 21:02 Dose: Not Given Ferrous Sulfate (Feosol -) 325 mg PO DAILY [facility] Furosemide (Lasix Injection -) 80 mg IVPUSH 0600,1400,2000 [facility] Last Admin: 08/21/16 06:18 Dose: 80 mg Polyethylene Glycol (Miralax (For Daily Use) -) 17 gm PO DAILY [facility] Prednisone (Deltasone -) 20 mg PO DAILY [facility] Ranitidine HCl (Zantac -) 150 mg PO BID [facility] Last Admin: 08/20/16 21:23 Dose: 150 mg Vital Signs - 24 hr 08/20/16 08/20/16 08/20/16 09:49 10:00 12:00 Temperature 98.0 F Pulse Rate 85 85 92 H Respiratory 16 16 Rate Blood Pressure 104/69 104/80 O2 Sat by Pulse 100 Oximetry (%) 08/20/16 08/20/16 08/20/16 14:00 16:00 18:00 Temperature 98.0 F 98 F Pulse Rate 90 88 93 H Respiratory 18 18 18 Rate Blood Pressure 105/66 102/56 110/72 O2 Sat by Pulse Oximetry (%) 08/20/16 08/20/16 08/21/16 20:00 21:00 02:00 Temperature 98.4 F 98.4 F Pulse Rate 90 92 H Respiratory 20 20 Rate Blood Pressure 115/58 99/71 O2 Sat by Pulse 97 Oximetry (%) 08/21/16 04:09 Temperature 97.7 F Pulse Rate 84 Respiratory 20 Rate Blood Pressure 113/64 O2 Sat by Pulse Oximetry (%) Intake & Output 08/19/16 08/20/16 08/21/16 08/22/16 07:59 07:59 07:59 07:59 Intake Total 1030 785 780 Output Total 1650 7835 2100 Balance -620 -1690 -1320 Weight 149 lb 4.047 oz 149 lb 7.574 oz 137 lb 0.2 oz Constitutional: Yes: Well Nourished, No Distress, Calm Cardiovascular: Yes: Regular Rate and Rhythm, JVD (++), Murmur (loud HSM LLSB), S1, S2. displaced pmi No: Gallop. Respiratory: Yes: Regular, Wheezes (bilat lower). No: Accessory Muscle Use, Rales Extremities: No: Cold GI + bs soft nt ++ distension, + fluid wave Edema: 1+ dependent edema of upper thigh/sacrum Neurological: Yes: Alert+0x3. No: Seizure Psychiatric: No: Agitated no carotid bruits no jaundice diaphoresis no xanthalasmas Labs: CBC, BMP 08/21/16 05:35 08/21/16 05:35 - ....Imaging EKG: Other (tele: NSR; intermittent short runs of nsvt) Assessment/Plan Abd u/a: moderate amount of ascites in upper abdomen. Liver and spleen findings c/w cirrhosis. cath 08/02 all grafts patent (self to lad, svg to lcx, svg to rpda) Echo 07/2016 (this admit): mod lve, sev reduced LV fn (global). mild rve with mild hypo (severe TR, intrinsic RV fn likely more depressed), 1+ connie. 1+ mr, severe tr, mod phtn, pl effusion Echo 07/2015: sev lve, sev reduced lvef (global). grade 2 diastolic dysfunction. nl RV. mild connie. dilated ivc. mod mr, mod-sev tr, sev phtn, mild pr. Echo 08/03: sev LVE with severe decr EF; mild RV dil with moderate hypo; mod MR/ TR; RVSP >60 cxr 08/21: congestive changes remain Assessment/Plan 76 yo recent smoker (quit 6 mo ago) with h/o CAD s/p CABG, ischemic CM with EF 25% s/p BiVICD with secondary severe pulmonary hypertension, prior CVA, HL, copd, CKD, bph, chronic iron deficiency anemia who p/w worsened cough, sob, hypotension and noted to have profound anemia. Pre-operative clearance/anemia. -hgb stable since prbcs transfused -RCRI of 3 with decompensated chf and low bp here. Has estimated high risk for jd-operative CV complications. Would optimize cardiac/pulmonary status if safe to delay endoscopy. still with decompensated heart failure at this time. isch CMP (acute systolic CHF exacerbation) - s/p BiVICD --> routine outpatient monitoring. Last checked this month. Occasional brief nsvt noted on prior checks. - Patient's weight actually stable as outpatient in past month. Possible pulmonary congestion on CXR. ddx infection. trace le edema. After lasix 80 mg IV in ER last night, cr improved, but sodium worsened. Now s/p 2 units of PRBC and lasix 40 mg IV x 1 yesterday 08/14 with improvement in sodium, worsened again overnight. - 08/15: Patient overall comfortable. Unable to accurately assess I/O's, weights --> holding diuresis today so that he will definitively be net positive tomorrow and can reassess hypernatremia tomorrow and hepatic congestion. If worsens then will resume IV lasix. Patient with significant rhonchi and wheezes on exam. Also with moderate ascites on u/s. Frequent nsvt on tele. These findings remain concerning for heart failure exacerbation. Will repeat cxr in am. Echo. Replete electrolytes. Reluctant to add beta alondra while with active wheezes and unclear if he is decompensated. If needed overnight can start short acting low dose metoprolol. - 08/16: significant worsening of abdominal distension and edema without lasix yesterday. Initiating bid diuresis with lasix 80 mg IV BID. BMP this evening prior to second lasix dose to monitor sodium and potassium. Reluctant to add beta alondra while with active wheezes and unclear if he is decompensated. - 08/17: nsvt/ectopy improved with diuresis. Echo shows worsened RV function. Patient likely with acute decompensated HF and superimposed RV HF exacerbation. BUN rising. Will start milrinone to augment RV function and reduce pulmonary pressures. Con't bid lasix. -08/18: cont milrinone and iv lasix, cr stable today. cxr still with chf. -08/19: milrinone stopped yesterday due to hypotension. clinically seems less vol overloaded. cr stable. cont iv lasix. will check cxr tomorrow am to monitor progress. -08/20: bnp 13K here initially, up to 17K (prior range 2K-5K) no weights; ++JVD persists, renal fxn improving. cxr reviewed: improving vs prior (L effusion resolved), overpenetrated film vs prior confounds--some chf changes persist. he is likely still signif volume overloaded; he may have JVD even when at target wt due to severe TR and RV dysfunction, although i do not think he is at target wt based on cxr appearance and JVD to jaw; will increase lasix (to 80 iv TID), follow UOP (lakhwinder). if does not diurese well or becomes hypotensive, will need to resume milrinone with pressors (dopa if ventric ectopy can tolerate ; otherwise vasopressin) - 08/21: still with ++ abdominal distension/ascites, early satiety, dependent edema and congestive changes on cxr. diurested will on tid lasix, but sodium bumped. Will resume milrinone to augment RV contractility and decrease pulmonary pressures. Repeat bmp this afternoon to make sure sodium heading in right direction. con't strict I/O q shift. standing weights. telemetry monitoring. baseline sys bp's typically 100's, monitor for hypotension on milrinone. can switch to dobutmine if vasodilatory effect of milrinone is too much. - not on bb, aceI at home due to prior side effects of hypotension, dizziness. CAD s/p h/o CABG 2006 - holding ASA, plavix. If anti-platelets can be resumed, would consider resuming ASA alone. - no angina or signs acs h/o CVA: -was on ASA, plavix --> on hold as above. V Tach: - nsvt seen on prior ICD checks and on tele here as well. - electrolyte repletion prn. - con't telemetry monitoring. - if bp improves would try low dose bb but should improve with treatment of heart failure. PAT - no recurrence on recent ICD check. - brief episodes on tele here a.e. COPD: -On steroids, pulm following
[2016-08-21] MEDS ORDERED: POTASSIUM CHLORIDE TABS 20 MEQ TABLET.ER (FP) PO ONE (09:45)
[2016-08-21] MEDS: MILRINONE 20MG/100ML IVPB - 100 ML IVPB SCH (09:51)
[2016-08-21] MEDS: RANITIDINE HCL 150 MG TABLET (FP) PO SCH ×2 (09:52→21:22)
[2016-08-21] MEDS: FERROUS SO4 325 MG TABLET (FP) PO SCH (09:52)
[2016-08-21] MEDS: predniSONE 20 MG TABLET (UD) PO SCH (09:52)
[2016-08-21] MEDS: ASCORBIC ACID 500 MG TABLET (FP) PO SCH (09:52)
[2016-08-21] MEDS: POLYETHYLENE GLYCOL 3350 119 GM BTL PO SCH (09:53)
[2016-08-21] MEDS ORDERED: predniSONE 20 MG TABLET (UD) PO SCH (10:00)
--- NOTE | 2016-08-21 11:08 | PN ---
Progress Note, Physician Chief Complaint: pt in Telemetry No SOB looks comfortable - Current Medication List Current Medications: Active Medications Acetaminophen (Tylenol -) 650 mg PO Q6H PRN PRN Reason: FEVER OR PAIN Last Admin: 08/21/16 04:16 Dose: 650 mg Albuterol Sulfate (Ventolin 0.083% Nebulizer Soln -) 1 amp NEB QIDR [facility] Last Admin: 08/21/16 06:23 Dose: 1 amp Ascorbic Acid (Vitamin C -) 500 mg PO DAILY [facility] Last Admin: 08/21/16 09:52 Dose: 500 mg Atorvastatin Calcium (Lipitor -) 10 mg PO HS [facility] Last Admin: 08/20/16 21:23 Dose: 10 mg Chlorhexidine Gluconate (Hibiclens For Decolonization -) 1 applic TP [facility] Last Admin: 08/20/16 21:02 Dose: Not Given Ferrous Sulfate (Feosol -) 325 mg PO DAILY [facility] Last Admin: 08/21/16 09:52 Dose: 325 mg Furosemide (Lasix Injection -) 80 mg IVPUSH 0600,1400,2000 [facility] Last Admin: 08/21/16 06:18 Dose: 80 mg Milrinone Lactate/Dextrose (Milrinone 20mg/100ml Ivpb -) 100 mls @ 6.992 mls/ hr IVPB TITR [facility] PRN Reason: 0.375 MCG/KG/MIN Last Admin: 08/21/16 09:51 Dose: 6.992 mls/hr Polyethylene Glycol (Miralax (For Daily Use) -) 17 gm PO DAILY [facility] Last Admin: 08/21/16 09:53 Dose: 17 gm Prednisone (Deltasone -) 20 mg PO DAILY [facility] Last Admin: 08/21/16 09:52 Dose: 20 mg Ranitidine HCl (Zantac -) 150 mg PO BID [facility] Last Admin: 08/21/16 09:52 Dose: 150 mg - Objective Vital Signs: Vital Signs Temperature 97.7 F 08/21/16 04:09 Pulse Rate 84 08/21/16 04:09 Respiratory Rate 20 08/21/16 04:09 Blood Pressure 113/64 08/21/16 04:09 O2 Sat by Pulse Oximetry (%) 97 08/20/16 21:00 Constitutional: Yes: No Distress Cardiovascular: Yes: Regular Rate and Rhythm Respiratory: Yes: Rhonchi Gastrointestinal: Yes: Normal Bowel Sounds, Soft, Abdomen, Obese, Distention. No: Tenderness Edema: No Labs: CBC, BMP 08/21/16 05:35 08/21/16 05:35 INR, PTT INR 1.66 (0.82-1.09) H 08/14/16 07:55 Problem List - Problems (1) Anemia Code(s): D64.9 - ANEMIA, UNSPECIFIED Qualifiers: Anemia type: unspecified type Qualified Code(s): D64.9 - Anemia, unspecified (2) CHF (congestive heart failure) Code(s): I50.9 - HEART FAILURE, UNSPECIFIED Qualifiers: Congestive heart failure type: combined Congestive heart failure chronicity: acute on chronic Qualified Code(s): I50.43 - Acute on chronic combined systolic (congestive) and diastolic (congestive) heart failure (3) CKD (chronic kidney disease) Code(s): N18.9 - CHRONIC KIDNEY DISEASE, UNSPECIFIED Qualifiers: Chronic kidney disease stage: unspecified stage Qualified Code(s): N18.9 - Chronic kidney disease, unspecified (4) Hypotension Code(s): I95.9 - HYPOTENSION, UNSPECIFIED (5) CHF exacerbation Code(s): I50.9 - HEART FAILURE, UNSPECIFIED (6) COPD (chronic obstructive pulmonary disease) Code(s): J44.9 - CHRONIC OBSTRUCTIVE PULMONARY DISEASE, UNSPECIFIED Assessment/Plan PLAN On Lasix 80mg iv TID keane for i and O iv Milrinone Hb stable renal function stable leucocytosis due to steroids Nebs as needed PT eval CXR same BP monitoring
--- NOTE | 2016-08-21 11:21 | PN ---
Progress Note, Physician History of Present Illness: PULMONARY ALERT,COMFORTABLE,LESS DYSPNEIC,PT ON MILRINONE DRIP - Current Medication List Current Medications: Active Medications Acetaminophen (Tylenol -) 650 mg PO Q6H PRN PRN Reason: FEVER OR PAIN Last Admin: 08/21/16 04:16 Dose: 650 mg Albuterol Sulfate (Ventolin 0.083% Nebulizer Soln -) 1 amp NEB QIDR [facility] Last Admin: 08/21/16 06:23 Dose: 1 amp Ascorbic Acid (Vitamin C -) 500 mg PO DAILY [facility] Last Admin: 08/21/16 09:52 Dose: 500 mg Atorvastatin Calcium (Lipitor -) 10 mg PO HS [facility] Last Admin: 08/20/16 21:23 Dose: 10 mg Chlorhexidine Gluconate (Hibiclens For Decolonization -) 1 applic TP [facility] Last Admin: 08/20/16 21:02 Dose: Not Given Ferrous Sulfate (Feosol -) 325 mg PO DAILY [facility] Last Admin: 08/21/16 09:52 Dose: 325 mg Furosemide (Lasix Injection -) 80 mg IVPUSH 0600,1400,2000 [facility] Last Admin: 08/21/16 06:18 Dose: 80 mg Milrinone Lactate/Dextrose (Milrinone 20mg/100ml Ivpb -) 100 mls @ 6.992 mls/ hr IVPB TITR [facility] PRN Reason: 0.375 MCG/KG/MIN Last Admin: 08/21/16 09:51 Dose: 6.992 mls/hr Polyethylene Glycol (Miralax (For Daily Use) -) 17 gm PO DAILY [facility] Last Admin: 08/21/16 09:53 Dose: 17 gm Prednisone (Deltasone -) 20 mg PO DAILY [facility] Last Admin: 08/21/16 09:52 Dose: 20 mg Ranitidine HCl (Zantac -) 150 mg PO BID [facility] Last Admin: 08/21/16 09:52 Dose: 150 mg - Objective Vital Signs: Vital Signs Temperature 97.7 F 08/21/16 04:09 Pulse Rate 84 08/21/16 04:09 Respiratory Rate 20 08/21/16 04:09 Blood Pressure 113/64 08/21/16 04:09 O2 Sat by Pulse Oximetry (%) 97 08/20/16 21:00 Constitutional: Yes: Calm, Thin Eyes: Yes: WNL HENT: Yes: WNL Neck: Yes: WNL Cardiovascular: Yes: Regular Rate and Rhythm, S1, S2 Respiratory: Yes: Rales, Rhonchi (BILATERAL RALES AND RHONCHI) Gastrointestinal: Yes: Normal Bowel Sounds, Soft, Distention Extremities: Yes: WNL Edema: Yes Labs: CBC, BMP 08/21/16 05:35 08/21/16 05:35 INR, PTT INR 1.66 (0.82-1.09) H 08/14/16 07:55 - ....Imaging Chest X-ray: Report Reviewed, Image Reviewed Problem List - Problems (1) CHF (congestive heart failure) Code(s): I50.9 - HEART FAILURE, UNSPECIFIED Qualifiers: Congestive heart failure type: combined Congestive heart failure chronicity: acute on chronic Qualified Code(s): I50.43 - Acute on chronic combined systolic (congestive) and diastolic (congestive) heart failure (2) CKD (chronic kidney disease) Code(s): N18.9 - CHRONIC KIDNEY DISEASE, UNSPECIFIED Qualifiers: Chronic kidney disease stage: unspecified stage Qualified Code(s): N18.9 - Chronic kidney disease, unspecified (3) Hypotension Code(s): I95.9 - HYPOTENSION, UNSPECIFIED (4) Lactic acid blood increased Code(s): R79.89 - OTHER SPECIFIED ABNORMAL FINDINGS OF BLOOD CHEMISTRY (5) CHF exacerbation Code(s): I50.9 - HEART FAILURE, UNSPECIFIED (6) COPD (chronic obstructive pulmonary disease) Code(s): J44.9 - CHRONIC OBSTRUCTIVE PULMONARY DISEASE, UNSPECIFIED (7) COPD exacerbation Code(s): J44.1 - CHRONIC OBSTRUCTIVE PULMONARY DISEASE W (ACUTE) EXACERBATION (8) HTN (hypertension) Code(s): I10 - ESSENTIAL (PRIMARY) HYPERTENSION Assessment/Plan ASSESSMENT AND PLAN: Acute Respiratory Distress resolving Acute COPD Exacerbation Acute on Chronic Severe LV Systolic Dysfunction Lactic Acidosis resolved Anemia s/p PRBC transfusions Acute on Chronic Renal Failure CAD s/p CABG - continue lasix ,milrinone - monitor urine output, creatinine - monitor H/H - taper steroids - inhaled bronchodilators - replete lytes - DVT/GI prophylaxis DR REYNOSO
[2016-08-21 17:28] LABS: ALBUMIN 2.3 g/dl (3.4-5.0); ALK PHOS 129 U/L (45-117); ANION GAP 10 (8-16); BILIRUBIN,TOTAL 1.4 mg/dL (0.2-1.0); CALCIUM 8.1 mg/dL (8.5-10.1); CO2 31 mmol/L (21-32); COCKROFT - GAULT 50.22; CREATININE 1.1 mg/dL (0.7-1.3); GLUCOSE,RANDOM 157 mg/dL (74-106); SGPT/ALT 25 U/L (12-78); TOT PROT 6.3 g/dl (6.4-8.2)
[2016-08-21 17:38] LABS: SGOT/AST 29 U/L (15-37)
[2016-08-21] MEDS: CHLORHEXIDINE GLUCONATE 4% CLEANSER FOR DECOLONIZATION TP SCH (21:21)
[2016-08-21] MEDS: ATORVASTATIN CA 10 MG TABLET (FP) PO SCH (21:22)
[2016-08-22] MEDS: ACETAMINOPHEN 325 MG TABLET (FP) PO PRN (00:23)
[2016-08-22] MEDS: MILRINONE 20MG/100ML IVPB - 100 ML IVPB SCH ×2 (00:23→16:40)
[2016-08-22] MEDS: ALBUTEROL SO4 0.083% IH SOL 2.5 MG/3 ML VIAL.NEB. NEB SCH ×3 (06:05→18:11)
[2016-08-22] MEDS: FUROSEMIDE 40 MG/4 ML INJECTABLE VIAL IVPUSH SCH ×3 (07:27→23:35)
[2016-08-22 08:00] LABS: BASOPHIL 0.1 % (0-2.0); MCH 20.5 pg (25.7-33.7); MCHC 28.7 g/dl (32.0-35.9); MEAN CELL VOLUME 71.5 fl (80-96); MEAN PLT VOLUME 8.5 fl (7.5-11.1); NEUTROPHILS 87.8 % (42.8-82.8); PLATELET COUNT 167 K/MM3 (134-434); RDW 26.8 % (11.9-15.9); WHITE BLOOD COUNT 19.4 K/mm3 (4.0-10.0)
[2016-08-22 08:36] LABS: ALBUMIN 2.3 g/dl (3.4-5.0); BILIRUBIN,TOTAL 1.7 mg/dL (0.2-1.0); CALCIUM 8.4 mg/dL (8.5-10.1); COCKROFT - GAULT 46.03; CREATININE 1.2 mg/dL (0.7-1.3); MAGNESIUM 2.4 mg/dL (1.8-2.4); TOT PROT 5.8 g/dl (6.4-8.2)
--- NOTE | 2016-08-22 10:18 | PN ---
Progress Note (short form) - Note Progress Note: CC: anemia/chf exacerbation S: no cp, palps, dizziness, sob, orthopnea, le edema improved as well; ate breakfast, no abd distension Current Medications Generic Name Dose Route Start Last Admin Trade Name Freq PRN Reason Stop Dose Admin Acetaminophen 650 mg 08/20/16 10:41 08/22/16 00:23 Tylenol - PO 650 mg Q6H PRN Administration FEVER OR PAIN Albuterol Sulfate 1 amp 08/20/16 12:00 08/22/16 06:05 Ventolin 0.083% Nebulizer Soln - NEB 1 amp QIDR [place] Administration Ascorbic Acid 500 mg 08/21/16 10:00 08/21/16 09:52 Vitamin C - PO 500 mg DAILY [place] Administration Atorvastatin Calcium 10 mg 08/20/16 22:00 08/21/16 21:22 Lipitor - PO 10 mg HS [facility] Administration Chlorhexidine Gluconate 1 applic 08/20/16 22:00 08/21/16 21:21 Hibiclens For Decolonization - TP Not Given HS [facility] Ferrous Sulfate 325 mg 08/21/16 10:00 08/21/16 09:52 Feosol - PO 325 mg DAILY [facility] Administration Furosemide 80 mg 08/20/16 14:00 08/22/16 07:27 Lasix Injection - IVPUSH 80 mg 0600,1400,2000 [facility] Administration Milrinone Lactate/Dextrose 100 mls @ 6.992 mls/hr 08/21/16 09:30 08/22/16 00:23 Milrinone 20mg/100ml Ivpb - IVPB 6.992 mls/hr TITR [facility] Administration 0.375 MCG/KG/MIN Polyethylene Glycol 17 gm 08/21/16 10:00 08/21/16 09:53 Miralax (For Daily Use) - PO 17 gm DAILY [facility] Administration Prednisone 20 mg 08/21/16 10:00 08/21/16 09:52 Deltasone - PO 20 mg DAILY [facility] Administration Ranitidine HCl 150 mg 08/20/16 22:00 08/21/16 21:22 Zantac - PO 150 mg BID [facility] Administration Vital Signs Temp 99 F 08/22/16 06:00 Pulse 102 H 08/22/16 06:00 Resp 20 08/22/16 06:00 BP 94/53 08/22/16 06:00 Pulse Ox 95 08/21/16 21:00 Intake & Output 08/21/16 08/21/16 08/22/16 11:59 23:59 11:59 Intake Total 20 140 84 Output Total 750 2300 900 Balance -730 -2160 -816 Weight 137 lb 0.2 oz Intake: IV 84 Milrinone 20Mg/100Ml Ivpb 84 - 100 ml @ 0.375 MCG/KG/ MIN 6.992 mls/hr IVPB TITR [facility] Rx#:[id number] IVPB 20 20 Oral 120 Output: Urine 750 2300 900 Villaseñor 750 2300 900 Other: Voiding Method Indwelling Catheter Indwelling Catheter Weight Measurement Method Standing Scale Constitutional: Yes: Well Nourished, No Distress Eyes: No: Sclera Icterus Respiratory: Yes: diffuse rhonchi No: Accessory Muscle Use, Wheezes Gastrointestinal: Yes: Normal Bowel Sounds. no Distention, No Hepatomegaly, Palpable Mass, Tenderness Cardiovascular: Yes: Regular Rate and Rhythm (soft heart sounds) JVD: Yes Heart Sounds: Yes: S1, S2. No: Gallop Murmur: 2/6 high pitched sys murmur at lsb and apex Extremities: No: Cold, Cyanosis Edema: no le edema/c/c Peripheral Pulses:+dp pt Integumentary: No: Jaundice diaphoresis Neurological: Yes: Alert, appropriate Psychiatric: No: Agitated - Other Data Labs, Other Data: Laboratory Last Values WBC 19.4 K/mm3 (4.0-10.0) H 08/22/16 05:50 RBC 3.88 M/mm3 (4.00-5.60) L 08/22/16 05:50 Hgb 8.0 GM/dL (11.7-16.9) L 08/22/16 05:50 Hct 27.7 % (35.4-49) L 08/22/16 05:50 MCV 71.5 fl (80-96) L 08/22/16 05:50 MCHC 28.7 g/dl (32.0-35.9) L 08/22/16 05:50 RDW 26.8 % (11.9-15.9) H 08/22/16 05:50 Plt Count 167 K/MM3 (134-434) 08/22/16 05:50 MPV 8.5 fl (7.5-11.1) 08/22/16 05:50 Neutrophils % 87.8 % (42.8-82.8) H 08/22/16 05:50 Lymphocytes % 3.3 % (8-40) L 08/22/16 05:50 Monocytes % 8.8 % (3.8-10.2) 08/22/16 05:50 Eosinophils % 0.0 % (0-4.5) 08/22/16 05:50 Basophils % 0.1 % (0-2.0) D 08/22/16 05:50 Platelet Estimate Adequate (NORMAL) 08/19/16 05:27 Platelet Comment No clumping noted 08/19/16 05:27 Polychromasia 1+ 08/19/16 05:27 Hypochromic-Microcytic 2+ 08/19/16 05:27 Poikilocytosis 1+ 08/19/16 05:27 Basophilic Stippling Few 08/19/16 05:27 Anisocytosis 3+ 08/19/16 05:27 Microcytosis 2+ 08/19/16 05:27 Target Cells Few 08/19/16 05:27 Ovalocytes 1+ 08/19/16 05:27 INR 1.66 (0.82-1.09) H 08/14/16 07:55 PTT (Actin FS) 30.9 SECONDS (26.9-34.4) 08/13/16 15:45 VBG pH 7.30 (7.32-7.42) L 08/13/16 15:54 POC VBG pCO2 49.2 mmHg (38-52) 08/13/16 15:54 POC VBG pO2 25.4 mmHg (28-48) L 08/13/16 15:54 Mixed VBG HCO3 23.4 meq/L (19-25) 08/13/16 15:54 Sodium 150 mmol/L (136-145) H 08/22/16 05:50 Potassium 3.7 mmol/L (3.5-5.1) 08/22/16 05:50 Chloride 106 mmol/L (98-107) 08/22/16 05:50 Carbon Dioxide 35 mmol/L (21-32) H 08/22/16 05:50 Anion Gap 9 (8-16) 08/22/16 05:50 BUN 54 mg/dL (7-18) H 08/22/16 05:50 Creatinine 1.2 mg/dL (0.7-1.3) 08/22/16 05:50 Creat Clearance w eGFR 58.86 (>60) 08/22/16 05:50 Random Glucose 110 mg/dL (74-106) H D 08/22/16 05:50 Lactic Acid 1.712 mmol/L (0.4-2.0) 08/14/16 07:55 Calcium 8.4 mg/dL (8.5-10.1) L 08/22/16 05:50 Phosphorus 3.7 mg/dL (2.5-4.9) 08/20/16 05:20 Magnesium 2.4 mg/dL (1.8-2.4) 08/22/16 05:50 Iron 15 ug/dL (38-169) L 08/13/16 15:50 TIBC 305 ug/dL (250-450) 08/13/16 15:50 Iron Saturation 5 % (15-55) L 08/13/16 15:50 Ferritin 28.597 ng/ml (16.4-293.9) 08/13/16 12:00 Total Bilirubin 1.7 mg/dL (0.2-1.0) H D 08/22/16 05:50 AST 17 U/L (15-37) D 08/22/16 05:50 ALT 23 U/L (12-78) 08/22/16 05:50 Alkaline Phosphatase 126 U/L (45-117) H 08/22/16 05:50 Creatine Kinase 67 IU/L (39-308) 08/13/16 15:45 Troponin I 0.06 ng/ml (0.00-0.05) H D 08/13/16 15:45 B-Natriuretic Peptide 76649.44 pg/ml (5-450) H 08/16/16 20:30 Total Protein 5.8 g/dl (6.4-8.2) L 08/22/16 05:50 Albumin 2.3 g/dl (3.4-5.0) L 08/22/16 05:50 TSH 2.00 uIU/ml (0.358-3.74) 08/13/16 12:00 Stool Occult Blood Negative (NEGATIVE) 08/13/16 17:00 Blood Type A POSITIVE 08/13/16 15:45 Antibody Screen Negative 08/13/16 15:45 Crossmatch See Detail 08/13/16 15:45 tele: v-paced Abd u/a: moderate amount of ascites in upper abdomen. Liver and spleen findings c/w cirrhosis. cath 08/02 all grafts patent (self to lad, svg to lcx, svg to rpda) Echo 07/2016 (this admit): mod lve, sev reduced LV fn (global). mild rve with mild hypo (severe TR, intrinsic RV fn likely more depressed), 1+ connie. 1+ mr, severe tr, mod phtn, pl effusion Echo 07/2015: sev lve, sev reduced lvef (global). grade 2 diastolic dysfunction. nl RV. mild connie. dilated ivc. mod mr, mod-sev tr, sev phtn, mild pr. Echo 08/03: sev LVE with severe decr EF; mild RV dil with moderate hypo; mod MR/ TR; RVSP >60 cxr 08/21: congestive changes remain Assessment/Plan 76 yo recent smoker (quit 6 mo ago) with h/o CAD s/p CABG, ischemic CM with EF 25% s/p BiVICD with secondary severe pulmonary hypertension, prior CVA, HL, copd, CKD, bph, chronic iron deficiency anemia who p/w worsened cough, sob, hypotension and noted to have profound anemia. Pre-operative clearance/anemia. -hgb stable since prbcs transfused -RCRI of 3 with decompensated chf and low bp here. Has estimated high risk for jd-operative CV complications. Would optimize cardiac/pulmonary status if safe to delay endoscopy. still with decompensated heart failure at this time. isch CMP (acute systolic CHF exacerbation) - s/p BiVICD --> routine outpatient monitoring. Last checked this month. Occasional brief nsvt noted on prior checks. - Patient's weight actually stable as outpatient in past month. Possible pulmonary congestion on CXR. ddx infection. trace le edema. After lasix 80 mg IV in ER last night, cr improved, but sodium worsened. Now s/p 2 units of PRBC and lasix 40 mg IV x 1 yesterday 08/14 with improvement in sodium, worsened again overnight. - 08/15: Patient overall comfortable. Unable to accurately assess I/O's, weights --> holding diuresis today so that he will definitively be net positive tomorrow and can reassess hypernatremia tomorrow and hepatic congestion. If worsens then will resume IV lasix. Patient with significant rhonchi and wheezes on exam. Also with moderate ascites on u/s. Frequent nsvt on tele. These findings remain concerning for heart failure exacerbation. Will repeat cxr in am. Echo. Replete electrolytes. Reluctant to add beta alondra while with active wheezes and unclear if he is decompensated. If needed overnight can start short acting low dose metoprolol. - 08/16: significant worsening of abdominal distension and edema without lasix yesterday. Initiating bid diuresis with lasix 80 mg IV BID. BMP this evening prior to second lasix dose to monitor sodium and potassium. Reluctant to add beta alondra while with active wheezes and unclear if he is decompensated. - 08/17: nsvt/ectopy improved with diuresis. Echo shows worsened RV function. Patient likely with acute decompensated HF and superimposed RV HF exacerbation. BUN rising. Will start milrinone to augment RV function and reduce pulmonary pressures. Con't bid lasix. -08/18: cont milrinone and iv lasix, cr stable today. cxr still with chf. -08/19: milrinone stopped yesterday due to hypotension. clinically seems less vol overloaded. cr stable. cont iv lasix. will check cxr tomorrow am to monitor progress. -08/20: bnp 13K here initially, up to 17K (prior range 2K-5K) no weights; ++JVD persists, renal fxn improving. cxr reviewed: improving vs prior (L effusion resolved), overpenetrated film vs prior confounds--some chf changes persist. he is likely still signif volume overloaded; he may have JVD even when at target wt due to severe TR and RV dysfunction, although i do not think he is at target wt based on cxr appearance and JVD to jaw; will increase lasix (to 80 iv TID), follow UOP (lakhwinder). if does not diurese well or becomes hypotensive, will need to resume milrinone with pressors (dopa if ventric ectopy can tolerate ; otherwise vasopressin) - 08/21: still with ++ abdominal distension/ascites, early satiety, dependent edema and congestive changes on cxr. diurested will on tid lasix, but sodium bumped. Will resume milrinone to augment RV contractility and decrease pulmonary pressures. Repeat bmp this afternoon to make sure sodium heading in right direction. con't strict I/O q shift. standing weights. telemetry monitoring. baseline sys bp's typically 100's, monitor for hypotension on milrinone. can switch to dobutmine if vasodilatory effect of milrinone is too much. -08/22: cr stable, wt down, symptomatically improved. na and bicarb rising, may be reaching a dry wt. will cont same iv lasix/milrinone today and monitor chem7 tomorrow to see if need to adjust diuretics further. - not on bb, aceI at home due to prior side effects of hypotension, dizziness. CAD s/p h/o CABG 2006 - holding ASA, plavix. If anti-platelets can be resumed, would consider resuming ASA alone. - no angina or signs acs h/o CVA: -was on ASA, plavix --> on hold as above. V Tach: - nsvt seen on prior ICD checks and on tele here as well. - electrolyte repletion prn. - con't telemetry monitoring. - if bp improves would try low dose bb but should improve with treatment of heart failure. PAT - no recurrence on recent ICD check. - brief episodes on tele here a.e. COPD: -On steroids, pulm following
--- NOTE | 2016-08-22 10:25 | PN ---
Progress Note, Physician Chief Complaint: pt in Telemetry No SOB looks comfortable on Milrinone infusion has left arm swelling, no pain , it feels warm - Current Medication List Current Medications: Active Medications Acetaminophen (Tylenol -) 650 mg PO Q6H PRN PRN Reason: FEVER OR PAIN Last Admin: 08/22/16 00:23 Dose: 650 mg Albuterol Sulfate (Ventolin 0.083% Nebulizer Soln -) 1 amp NEB QIDR [facility] Last Admin: 08/22/16 06:05 Dose: 1 amp Ascorbic Acid (Vitamin C -) 500 mg PO DAILY [facility] Last Admin: 08/21/16 09:52 Dose: 500 mg Atorvastatin Calcium (Lipitor -) 10 mg PO HS [facility] Last Admin: 08/21/16 21:22 Dose: 10 mg Chlorhexidine Gluconate (Hibiclens For Decolonization -) 1 applic TP [facility] Last Admin: 08/21/16 21:21 Dose: Not Given Ferrous Sulfate (Feosol -) 325 mg PO DAILY [facility] Last Admin: 08/21/16 09:52 Dose: 325 mg Furosemide (Lasix Injection -) 80 mg IVPUSH 0600,1400,2000 [facility] Last Admin: 08/22/16 07:27 Dose: 80 mg Milrinone Lactate/Dextrose (Milrinone 20mg/100ml Ivpb -) 100 mls @ 6.992 mls/ hr IVPB TITR [facility] PRN Reason: 0.375 MCG/KG/MIN Last Admin: 08/22/16 00:23 Dose: 6.992 mls/hr Polyethylene Glycol (Miralax (For Daily Use) -) 17 gm PO DAILY [facility] Last Admin: 08/21/16 09:53 Dose: 17 gm Prednisone (Deltasone -) 20 mg PO DAILY [facility] Last Admin: 08/21/16 09:52 Dose: 20 mg Ranitidine HCl (Zantac -) 150 mg PO BID [facility] Last Admin: 08/21/16 21:22 Dose: 150 mg - Objective Vital Signs: Vital Signs Temperature 99 F 08/22/16 06:00 Pulse Rate 102 H 08/22/16 06:00 Respiratory Rate 20 08/22/16 06:00 Blood Pressure 94/53 08/22/16 06:00 O2 Sat by Pulse Oximetry (%) 95 08/21/16 21:00 Constitutional: Yes: No Distress Cardiovascular: Yes: Regular Rate and Rhythm, Murmur Respiratory: Yes: Diminished. No: Rhonchi Gastrointestinal: Yes: Normal Bowel Sounds, Soft, Abdomen, Obese. No: Tenderness Edema: Yes Edema: LUE: 2+, LLE: Trace, RLE: Trace Psychiatric: Yes: Alert, Oriented Labs: CBC, BMP 08/22/16 05:50 08/22/16 05:50 INR, PTT INR 1.66 (0.82-1.09) H 08/14/16 07:55 Problem List - Problems (1) Anemia Code(s): D64.9 - ANEMIA, UNSPECIFIED Qualifiers: Anemia type: unspecified type Qualified Code(s): D64.9 - Anemia, unspecified (2) CHF (congestive heart failure) Code(s): I50.9 - HEART FAILURE, UNSPECIFIED Qualifiers: Congestive heart failure type: combined Congestive heart failure chronicity: acute on chronic Qualified Code(s): I50.43 - Acute on chronic combined systolic (congestive) and diastolic (congestive) heart failure (3) CKD (chronic kidney disease) Code(s): N18.9 - CHRONIC KIDNEY DISEASE, UNSPECIFIED Qualifiers: Chronic kidney disease stage: unspecified stage Qualified Code(s): N18.9 - Chronic kidney disease, unspecified (4) Hypotension Code(s): I95.9 - HYPOTENSION, UNSPECIFIED (5) CHF exacerbation Code(s): I50.9 - HEART FAILURE, UNSPECIFIED (6) COPD (chronic obstructive pulmonary disease) Code(s): J44.9 - CHRONIC OBSTRUCTIVE PULMONARY DISEASE, UNSPECIFIED Assessment/Plan PLAN On Lasix 80mg iv TID keane for i and O iv Milrinone Hb stable renal function stable leucocytosis due to steroids Nebs as needed PT eval BP monitoring Cardiology follow up noted check venous doppler of left arm
--- NOTE | 2016-08-22 11:56 | PN ---
Progress Note (short form) - Note Progress Note: PULMONARY AWAKE/ALERT EATING LUNCH DENIES CP/SOB APPEARS CHRONICALLY ILL TMAX 99.0 ANICTERIC SCATTERED RHONCHI B/L S1S2 BS+ NO EDEMA LABS/MEDS/NOTES/IMAGING/MICRO REVIEWED Acute Respiratory Distress resolved Acute COPD Exacerbation Acute on Chronic Severe LV Systolic Dysfunction Lactic Acidosis resolved Anemia s/p PRBC transfusions Acute on Chronic Renal Failure CAD s/p CABG - continue lasix ,milrinone - monitor urine output, creatinine - monitor H/H - taper steroids - inhaled bronchodilators - replete lytes - DVT/GI prophylaxis Marita KERR MD
[2016-08-22] MEDS: ASCORBIC ACID 500 MG TABLET (FP) PO SCH (12:05)
[2016-08-22] MEDS: predniSONE 20 MG TABLET (UD) PO SCH (12:05)
[2016-08-22] MEDS: POLYETHYLENE GLYCOL 3350 119 GM BTL PO SCH (12:05)
[2016-08-22] MEDS: RANITIDINE HCL 150 MG TABLET (FP) PO SCH ×2 (12:05→23:35)
[2016-08-22] MEDS: FERROUS SO4 325 MG TABLET (FP) PO SCH (12:05)
[2016-08-22] MEDS: ATORVASTATIN CA 10 MG TABLET (FP) PO SCH (23:35)
[2016-08-22] MEDS: CHLORHEXIDINE GLUCONATE 4% CLEANSER FOR DECOLONIZATION TP SCH (23:40)
[2016-08-23] MEDS: ALBUTEROL SO4 0.083% IH SOL 2.5 MG/3 ML VIAL.NEB. NEB SCH ×5 (00:13→23:55)
[2016-08-23] MEDS: MILRINONE 20MG/100ML IVPB - 100 ML IVPB SCH ×3 (06:04→21:30)
[2016-08-23] MEDS: FUROSEMIDE 40 MG/4 ML INJECTABLE VIAL IVPUSH SCH ×3 (06:04→21:31)
[2016-08-23 08:03] LABS: MCH 20.8 pg (25.7-33.7); MCHC 29.3 g/dl (32.0-35.9); MEAN PLT VOLUME 8.5 fl (7.5-11.1); PLATELET COUNT 166 K/MM3 (134-434); RDW 27.8 % (11.9-15.9); WHITE BLOOD COUNT 15.2 K/mm3 (4.0-10.0)
[2016-08-23 08:29] LABS: ALBUMIN 2.4 g/dl (3.4-5.0); ALK PHOS 144 U/L (45-117); ANION GAP 7 (8-16); BILIRUBIN,TOTAL 1.8 mg/dL (0.2-1.0); CALCIUM 8.2 mg/dL (8.5-10.1); CO2 38 mmol/L (21-32); COCKROFT - GAULT 49.55; CREATININE 1.1 mg/dL (0.7-1.3); GLUCOSE,RANDOM 107 mg/dL (74-106); MAGNESIUM 2.3 mg/dL (1.8-2.4); SGOT/AST 21 U/L (15-37); SGPT/ALT 22 U/L (12-78); TOT PROT 6.4 g/dl (6.4-8.2)
[2016-08-23] MEDS ORDERED: POTASSIUM CHLORIDE TABS 20 MEQ TABLET.ER (FP) PO ONE (09:30)
[2016-08-23] MEDS: ASCORBIC ACID 500 MG TABLET (FP) PO SCH (09:36)
[2016-08-23] MEDS: predniSONE 20 MG TABLET (UD) PO SCH (09:36)
[2016-08-23] MEDS: RANITIDINE HCL 150 MG TABLET (FP) PO SCH ×2 (09:36→21:30)
[2016-08-23] MEDS: FERROUS SO4 325 MG TABLET (FP) PO SCH (09:36)
[2016-08-23] MEDS: POLYETHYLENE GLYCOL 3350 119 GM BTL PO SCH (09:37)
--- NOTE | 2016-08-23 10:35 | PN ---
Progress Note, Physician Chief Complaint: pt in Telemetry was walking with PT -- slow on Milrinone infusion sitting up in chair - Current Medication List Current Medications: Active Medications Acetaminophen (Tylenol -) 650 mg PO Q6H PRN PRN Reason: FEVER OR PAIN Last Admin: 08/22/16 00:23 Dose: 650 mg Albuterol Sulfate (Ventolin 0.083% Nebulizer Soln -) 1 amp NEB QIDR [facility] Last Admin: 08/23/16 06:24 Dose: 1 amp Ascorbic Acid (Vitamin C -) 500 mg PO DAILY [facility] Last Admin: 08/23/16 09:36 Dose: 500 mg Atorvastatin Calcium (Lipitor -) 10 mg PO HS [facility] Last Admin: 08/22/16 23:35 Dose: 10 mg Chlorhexidine Gluconate (Hibiclens For Decolonization -) [address] [facility] Last Admin: 08/22/16 23:40 Dose: Not Given Ferrous Sulfate (Feosol -) 325 mg PO DAILY [facility] Last Admin: 08/23/16 09:36 Dose: 325 mg Furosemide (Lasix Injection -) 80 mg IVPUSH 0600,1400,2000 [facility] Last Admin: 08/23/16 06:04 Dose: 80 mg Milrinone Lactate/Dextrose (Milrinone 20mg/100ml Ivpb -) 100 mls @ 6.992 mls/ hr IVPB TITR [facility] PRN Reason: 0.375 MCG/KG/MIN Last Admin: 08/23/16 09:36 Dose: 6.992 mls/hr Polyethylene Glycol (Miralax (For Daily Use) -) 17 gm PO DAILY [facility] Last Admin: 08/23/16 09:37 Dose: 17 gm Potassium Chloride (K-Dur -) 20 meq PO BID [facility] Prednisone (Deltasone -) 20 mg PO DAILY [facility] Last Admin: 08/23/16 09:36 Dose: 20 mg Ranitidine HCl (Zantac -) 150 mg PO BID [facility] Last Admin: 08/23/16 09:36 Dose: 150 mg - Objective Vital Signs: Vital Signs Temperature 98.9 F 08/23/16 05:52 Pulse Rate 104 H 08/23/16 05:52 Respiratory Rate 20 08/23/16 05:52 Blood Pressure 111/66 08/23/16 05:52 O2 Sat by Pulse Oximetry (%) 95 08/22/16 21:00 Constitutional: Yes: No Distress Cardiovascular: Yes: Regular Rate and Rhythm, Murmur Respiratory: Yes: Diminished, Rales (decreased) Gastrointestinal: Yes: Normal Bowel Sounds, Soft, Abdomen, Obese, Distention. No: Tenderness Edema: No Labs: CBC, BMP 08/23/16 05:40 08/23/16 05:40 INR, PTT INR 1.66 (0.82-1.09) H 08/14/16 07:55 Problem List - Problems (1) Anemia Code(s): D64.9 - ANEMIA, UNSPECIFIED Qualifiers: Anemia type: unspecified type Qualified Code(s): D64.9 - Anemia, unspecified (2) CHF (congestive heart failure) Code(s): I50.9 - HEART FAILURE, UNSPECIFIED Qualifiers: Congestive heart failure type: combined Congestive heart failure chronicity: acute on chronic Qualified Code(s): I50.43 - Acute on chronic combined systolic (congestive) and diastolic (congestive) heart failure (3) CKD (chronic kidney disease) Code(s): N18.9 - CHRONIC KIDNEY DISEASE, UNSPECIFIED Qualifiers: Chronic kidney disease stage: unspecified stage Qualified Code(s): N18.9 - Chronic kidney disease, unspecified (4) Hypotension Code(s): I95.9 - HYPOTENSION, UNSPECIFIED (5) CHF exacerbation Code(s): I50.9 - HEART FAILURE, UNSPECIFIED (6) COPD (chronic obstructive pulmonary disease) Code(s): J44.9 - CHRONIC OBSTRUCTIVE PULMONARY DISEASE, UNSPECIFIED Assessment/Plan PLAN On Lasix 80mg iv TID-- still clinically volume overload keane for i and O -- maintain keane iv Milrinone Hb stable renal function stable leucocytosis due to steroids Nebs as needed PT eval BP monitoring venous doppler of left arm -- no DVT
--- NOTE | 2016-08-23 12:34 | PN ---
Progress Note (short form) - Note Progress Note: CC: anemia/chf exacerbation, no cigs S: no cp, palps, dizziness, sob, orthopnea, le edema improved as well; ate breakfast, no abd distension Current Medications Generic Name Dose Route Start Last Admin Trade Name Freq PRN Reason Stop Dose Admin Acetaminophen 650 mg 08/20/16 10:41 08/22/16 00:23 Tylenol - PO 650 mg Q6H PRN Administration FEVER OR PAIN Albuterol Sulfate 1 amp 08/20/16 12:00 08/23/16 06:24 Ventolin 0.083% Nebulizer Soln - NEB 1 amp QIDR [place] Administration Ascorbic Acid 500 mg 08/21/16 10:00 08/23/16 09:36 Vitamin C - PO 500 mg DAILY [place] Administration Atorvastatin Calcium 10 mg 08/20/16 22:00 08/22/16 23:35 Lipitor - PO 10 mg HS [place] Administration Chlorhexidine Gluconate 1 applic 08/20/16 22:00 08/22/16 23:40 Hibiclens For Decolonization - TP Not Given HS [facility] Ferrous Sulfate 325 mg 08/21/16 10:00 08/23/16 09:36 Feosol - PO 325 mg DAILY [place] Administration Furosemide 80 mg 08/20/16 14:00 08/23/16 06:04 Lasix Injection - IVPUSH 80 mg 0600,1400,2000 [place] Administration Milrinone Lactate/Dextrose 100 mls @ 6.992 mls/hr 08/21/16 09:30 08/23/16 09:36 Milrinone 20mg/100ml Ivpb - IVPB 6.992 mls/hr TITR [facility] Administration 0.375 MCG/KG/MIN Polyethylene Glycol 17 gm 08/21/16 10:00 08/23/16 09:37 Miralax (For Daily Use) - PO 17 gm DAILY [place] Administration Potassium Chloride 20 meq 08/23/16 22:00 K-Dur - PO BID [facility] Prednisone 20 mg 08/21/16 10:00 08/23/16 09:36 Deltasone - PO 20 mg DAILY [place] Administration Ranitidine HCl 150 mg 08/20/16 22:00 08/23/16 09:36 Zantac - PO 150 mg BID [place] Administration Vital Signs Temp 98.9 F 08/23/16 05:52 Pulse 104 H 08/23/16 05:52 Resp 20 08/23/16 09:00 BP 111/66 08/23/16 05:52 Pulse Ox 96 08/23/16 09:00 Intake & Output 08/22/16 08/23/16 08/23/16 23:59 11:59 23:59 Intake Total 84 Output Total 1700 800 Balance -1700 -716 Weight 135 lb 3.2 oz Intake: IV 84 Milrinone 20Mg/100Ml Ivpb 84 - 100 ml @ 0.375 MCG/KG/ MIN 6.992 mls/hr IVPB TITR [facility] Rx#:[id number] Output: Urine 1700 800 Vill[place]ñor 1700 800 Other: Voiding Method Indwelling Catheter Indwelling Catheter Weight Measurement Method Standing Scale Constitutional: Yes: Well Nourished, No Distress Eyes: No: Sclera Icterus Respiratory: Yes: diffuse rhonchi No: Accessory Muscle Use, Wheezes Gastrointestinal: Yes: Normal Bowel Sounds. no Distention, No Hepatomegaly, Palpable Mass, Tenderness Cardiovascular: Yes: Regular Rate and Rhythm (soft heart sounds) JVD: Yes Heart Sounds: Yes: S1, S2. No: Gallop Murmur: 2/6 high pitched sys murmur at lsb and apex Extremities: No: Cold, Cyanosis Edema: no le edema/c/c Peripheral Pulses:+dp pt Integumentary: No: Jaundice diaphoresis Neurological: Yes: Alert, appropriate Psychiatric: No: Agitated - Other Data Labs, Other Data: Laboratory Last Values WBC 15.2 K/mm3 (4.0-10.0) H 08/23/16 05:40 RBC 3.96 M/mm3 (4.00-5.60) L 08/23/16 05:40 Hgb 8.2 GM/dL (11.7-16.9) L 08/23/16 05:40 Hct 28.1 % (35.4-49) L 08/23/16 05:40 MCV 71.0 fl (80-96) L 08/23/16 05:40 MCHC 29.3 g/dl (32.0-35.9) L 08/23/16 05:40 RDW 27.8 % (11.9-15.9) H 08/23/16 05:40 Plt Count 166 K/MM3 (134-434) 08/23/16 05:40 MPV 8.5 fl (7.5-11.1) 08/23/16 05:40 Neutrophils % 87.8 % (42.8-82.8) H 08/22/16 05:50 Lymphocytes % 3.3 % (8-40) L 08/22/16 05:50 Monocytes % 8.8 % (3.8-10.2) 08/22/16 05:50 Eosinophils % 0.0 % (0-4.5) 08/22/16 05:50 Basophils % 0.1 % (0-2.0) D 08/22/16 05:50 Platelet Estimate Adequate (NORMAL) 08/19/16 05:27 Platelet Comment No clumping noted 08/19/16 05:27 Polychromasia 1+ 08/19/16 05:27 Hypochromic-Microcytic 2+ 08/19/16 05:27 Poikilocytosis 1+ 08/19/16 05:27 Basophilic Stippling Few 08/19/16 05:27 Anisocytosis 3+ 08/19/16 05:27 Microcytosis 2+ 08/19/16 05:27 Target Cells Few 08/19/16 05:27 Ovalocytes 1+ 08/19/16 05:27 INR 1.66 (0.82-1.09) H 08/14/16 07:55 PTT (Actin FS) 30.9 SECONDS (26.9-34.4) 08/13/16 15:45 VBG pH 7.30 (7.32-7.42) L 08/13/16 15:54 POC VBG pCO2 49.2 mmHg (38-52) 08/13/16 15:54 POC VBG pO2 25.4 mmHg (28-48) L 08/13/16 15:54 Mixed VBG HCO3 23.4 meq/L (19-25) 08/13/16 15:54 Sodium 149 mmol/L (136-145) H 08/23/16 05:40 Potassium 3.3 mmol/L (3.5-5.1) L 08/23/16 05:40 Chloride 104 mmol/L (98-107) 08/23/16 05:40 Carbon Dioxide 38 mmol/L (21-32) H 08/23/16 05:40 Anion Gap 7 (8-16) L 08/23/16 05:40 BUN 47 mg/dL (7-18) H 08/23/16 05:40 Creatinine 1.1 mg/dL (0.7-1.3) 08/23/16 05:40 Creat Clearance w eGFR > 60 (>60) 08/23/16 05:40 Random Glucose 107 mg/dL (74-106) H 08/23/16 05:40 Lactic Acid 1.712 mmol/L (0.4-2.0) 08/14/16 07:55 Calcium 8.2 mg/dL (8.5-10.1) L 08/23/16 05:40 Phosphorus 3.7 mg/dL (2.5-4.9) 08/20/16 05:20 Magnesium 2.3 mg/dL (1.8-2.4) 08/23/16 05:40 Iron 15 ug/dL (38-169) L 08/13/16 15:50 TIBC 305 ug/dL (250-450) 08/13/16 15:50 Iron Saturation 5 % (15-55) L 08/13/16 15:50 Ferritin 28.597 ng/ml (16.4-293.9) 08/13/16 12:00 Total Bilirubin 1.8 mg/dL (0.2-1.0) H 08/23/16 05:40 AST 21 U/L (15-37) D 08/23/16 05:40 ALT 22 U/L (12-78) 08/23/16 05:40 Alkaline Phosphatase 144 U/L (45-117) H 08/23/16 05:40 Creatine Kinase 67 IU/L (39-308) 08/13/16 15:45 Troponin I 0.06 ng/ml (0.00-0.05) H D 08/13/16 15:45 B-Natriuretic Peptide 38294.44 pg/ml (5-450) H 08/16/16 20:30 Total Protein 6.4 g/dl (6.4-8.2) 08/23/16 05:40 Albumin 2.4 g/dl (3.4-5.0) L 08/23/16 05:40 TSH 2.00 uIU/ml (0.358-3.74) 08/13/16 12:00 Stool Occult Blood Negative (NEGATIVE) 08/13/16 17:00 Blood Type A POSITIVE 08/13/16 15:45 Antibody Screen Negative 08/13/16 15:45 Crossmatch See Detail 08/13/16 15:45 tele: v-paced, brief nsvt Abd u/a: moderate amount of ascites in upper abdomen. Liver and spleen findings c/w cirrhosis. cath 08/02 all grafts patent (self to lad, svg to lcx, svg to rpda) Echo 07/2016 (this admit): mod lve, sev reduced LV fn (global). mild rve with mild hypo (severe TR, intrinsic RV fn likely more depressed), 1+ connie. 1+ mr, severe tr, mod phtn, pl effusion Echo 07/2015: sev lve, sev reduced lvef (global). grade 2 diastolic dysfunction. nl RV. mild connie. dilated ivc. mod mr, mod-sev tr, sev phtn, mild pr. Echo 08/03: sev LVE with severe decr EF; mild RV dil with moderate hypo; mod MR/ TR; RVSP >60 cxr 08/21: congestive changes remain Assessment/Plan 76 yo recent smoker (quit 6 mo ago) with h/o CAD s/p CABG, ischemic CM with EF 25% s/p BiVICD with secondary severe pulmonary hypertension, prior CVA, HL, copd, CKD, bph, chronic iron deficiency anemia who p/w worsened cough, sob, hypotension and noted to have profound anemia. Pre-operative clearance/anemia. -hgb stable since prbcs transfused -RCRI of 3 with decompensated chf and low bp here. Has estimated high risk for jd-operative CV complications. Would optimize cardiac/pulmonary status if safe to delay endoscopy. still with decompensated heart failure at this time. isch CMP (acute systolic CHF exacerbation) - s/p BiVICD --> routine outpatient monitoring. Last checked this month. Occasional brief nsvt noted on prior checks. - Patient's weight actually stable as outpatient in past month. Possible pulmonary congestion on CXR. ddx infection. trace le edema. After lasix 80 mg IV in ER last night, cr improved, but sodium worsened. Now s/p 2 units of PRBC and lasix 40 mg IV x 1 yesterday 08/14 with improvement in sodium, worsened again overnight. - 08/15: Patient overall comfortable. Unable to accurately assess I/O's, weights --> holding diuresis today so that he will definitively be net positive tomorrow and can reassess hypernatremia tomorrow and hepatic congestion. If worsens then will resume IV lasix. Patient with significant rhonchi and wheezes on exam. Also with moderate ascites on u/s. Frequent nsvt on tele. These findings remain concerning for heart failure exacerbation. Will repeat cxr in am. Echo. Replete electrolytes. Reluctant to add beta alondra while with active wheezes and unclear if he is decompensated. If needed overnight can start short acting low dose metoprolol. - 08/16: significant worsening of abdominal distension and edema without lasix yesterday. Initiating bid diuresis with lasix 80 mg IV BID. BMP this evening prior to second lasix dose to monitor sodium and potassium. Reluctant to add beta alondra while with active wheezes and unclear if he is decompensated. - 08/17: nsvt/ectopy improved with diuresis. Echo shows worsened RV function. Patient likely with acute decompensated HF and superimposed RV HF exacerbation. BUN rising. Will start milrinone to augment RV function and reduce pulmonary pressures. Con't bid lasix. -08/18: cont milrinone and iv lasix, cr stable today. cxr still with chf. -08/19: milrinone stopped yesterday due to hypotension. clinically seems less vol overloaded. cr stable. cont iv lasix. will check cxr tomorrow am to monitor progress. -08/20: bnp 13K here initially, up to 17K (prior range 2K-5K) no weights; ++JVD persists, renal fxn improving. cxr reviewed: improving vs prior (L effusion resolved), overpenetrated film vs prior confounds--some chf changes persist. he is likely still signif volume overloaded; he may have JVD even when at target wt due to severe TR and RV dysfunction, although i do not think he is at target wt based on cxr appearance and JVD to jaw; will increase lasix (to 80 iv TID), follow UOP (lakhwinder). if does not diurese well or becomes hypotensive, will need to resume milrinone with pressors (dopa if ventric ectopy can tolerate ; otherwise vasopressin) - 5/2: still with ++ abdominal distension/ascites, early satiety, dependent edema and congestive changes on cxr. diurested will on tid lasix, but sodium bumped. Will resume milrinone to augment RV contractility and decrease pulmonary pressures. Repeat bmp this afternoon to make sure sodium heading in right direction. con't strict I/O q shift. standing weights. telemetry monitoring. baseline sys bp's typically 100's, monitor for hypotension on milrinone. can switch to dobutmine if vasodilatory effect of milrinone is too much. -08/22: cr stable, wt down, symptomatically improved. na and bicarb rising, may be reaching a dry wt. will cont same iv lasix/milrinone today and monitor chem7 tomorrow to see if need to adjust diuretics further. -08/23: wt continues to decrease, na better as well. cr stable. Will cont same milrinone/lasix until wt plateaus or signs of getting dry - not on bb, aceI at home due to prior side effects of hypotension, dizziness. CAD s/p h/o CABG 2006 - holding ASA, plavix. If anti-platelets can be resumed, would consider resuming ASA alone. - no angina or signs acs h/o CVA: -was on ASA, plavix --> on hold as above. V Tach: - nsvt seen on prior ICD checks and on tele here as well. - electrolyte repletion prn. - con't telemetry monitoring. - if bp improves would try low dose bb but should improve with treatment of heart failure. PAT - no recurrence on recent ICD check. - brief episodes on tele here a.e. COPD: -On steroids, pulm following
--- NOTE | 2016-08-23 14:25 | PN ---
Progress Note (short form) - Note Progress Note: PULMONARY Diuresing well on milrinone gtt. Denies shortness of breath or chest pain. No cough. Last Vital Signs Temp Pulse Resp BP Pulse Ox 98.3 F 99 H 20 112/64 96 08/23/16 11:00 08/23/16 11:00 08/23/16 11:00 08/23/16 11:00 08/23/16 09:50 Intake & Output 08/20/16 08/21/16 08/22/16 08/23/16 23:59 23:59 23:59 23:59 Intake Total 760 160 84 84 Output Total 1800 3050 2600 800 Balance -1040 -2890 -2516 -716 Weight 149 lb 7.574 oz 137 lb 0.2 oz 135 lb 3.2 oz Gen: NAD at rest Heart: RRR Lung: decreased breath sounds at the bases Abd:soft, nontender Ext: no edema CBC, BMP 08/23/16 05:40 08/23/16 05:40 Active Medications Acetaminophen (Tylenol -) 650 mg PO Q6H PRN PRN Reason: FEVER OR PAIN Last Admin: 08/22/16 00:23 Dose: 650 mg Albuterol Sulfate (Ventolin 0.083% Nebulizer Soln -) 1 amp NEB QIDR [facility] Last Admin: 08/23/16 11:10 Dose: 1 amp Ascorbic Acid (Vitamin C -) 500 mg PO DAILY [facility] Last Admin: 08/23/16 09:36 Dose: 500 mg Atorvastatin Calcium (Lipitor -) 10 mg PO [facility] Last Admin: 08/22/16 23:35 Dose: 10 mg Chlorhexidine Gluconate (Hibiclens For Decolonization -) 1 applic TP [facility] Last Admin: 08/22/16 23:40 Dose: Not Given Ferrous Sulfate (Feosol -) 325 mg PO DAILY [facility] Last Admin: 08/23/16 09:36 Dose: 325 mg Furosemide (Lasix Injection -) 80 mg IVPUSH 0600,1400,2000 [facility] Last Admin: 08/23/16 13:43 Dose: 80 mg Milrinone Lactate/Dextrose (Milrinone 20mg/100ml Ivpb -) 100 mls @ 6.992 mls/ hr IVPB TITR [facility] PRN Reason: 0.375 MCG/KG/MIN Last Admin: 08/23/16 09:36 Dose: 6.992 mls/hr Polyethylene Glycol (Miralax (For Daily Use) -) 17 gm PO DAILY [facility] Last Admin: 08/23/16 09:37 Dose: 17 gm Potassium Chloride (K-Dur -) 20 meq PO BID [facility] Prednisone (Deltasone -) 20 mg PO DAILY [facility] Last Admin: 08/23/16 09:36 Dose: 20 mg Ranitidine HCl (Zantac -) 150 mg PO BID [facility] Last Admin: 08/23/16 09:36 Dose: 150 mg A/P Acute COPD Exacerbation Acute on Chronic Severe LV Systolic Dysfunction Lactic Acidosis resolved Anemia s/p PRBC transfusions Acute on Chronic Renal Failure CAD s/p CABG - continue lasix, milrinone gtt - monitor urine output, creatinine - monitor H/H - taper off steroids - inhaled bronchodilators - replete lytes - increase PO free water - DVT/GI prophylaxis - telemetry monitoring
[2016-08-23] MEDS: ATORVASTATIN CA 10 MG TABLET (FP) PO SCH (21:30)
[2016-08-23] MEDS: POTASSIUM CHLORIDE TABS 20 MEQ TABLET.ER (FP) PO SCH (21:31)
[2016-08-23] MEDS: CHLORHEXIDINE GLUCONATE 4% CLEANSER FOR DECOLONIZATION TP SCH (21:31)
[2016-08-24] MEDS: FUROSEMIDE 40 MG/4 ML INJECTABLE VIAL IVPUSH SCH ×3 (06:26→22:50)
[2016-08-24] MEDS: ALBUTEROL SO4 0.083% IH SOL 2.5 MG/3 ML VIAL.NEB. NEB SCH ×4 (06:33→23:13)
[2016-08-24 07:48] LABS: MCH 20.5 pg (25.7-33.7); MCHC 27.8 g/dl (32.0-35.9); MEAN CELL VOLUME 73.8 fl (80-96); MEAN PLT VOLUME 8.8 fl (7.5-11.1); PLATELET COUNT 194 K/MM3 (134-434); RDW 28.8 % (11.9-15.9); WHITE BLOOD COUNT 19.9 K/mm3 (4.0-10.0)
[2016-08-24 07:57] LABS: ALBUMIN 2.5 g/dl (3.4-5.0); BILIRUBIN,TOTAL 2.1 mg/dL (0.2-1.0); CALCIUM 8.2 mg/dL (8.5-10.1); COCKROFT - GAULT 41.24; CREATININE 1.3 mg/dL (0.7-1.3); TOT PROT 6.7 g/dl (6.4-8.2)
[2016-08-24] MEDS: ASCORBIC ACID 500 MG TABLET (FP) PO SCH (09:16)
[2016-08-24] MEDS: RANITIDINE HCL 150 MG TABLET (FP) PO SCH ×2 (09:16→22:49)
[2016-08-24] MEDS: FERROUS SO4 325 MG TABLET (FP) PO SCH (09:16)
[2016-08-24] MEDS: predniSONE 20 MG TABLET (UD) PO SCH (09:16)
[2016-08-24] MEDS: POLYETHYLENE GLYCOL 3350 119 GM BTL PO SCH (09:16)
[2016-08-24] MEDS: POTASSIUM CHLORIDE TABS 20 MEQ TABLET.ER (FP) PO SCH ×2 (09:16→22:49)
--- NOTE | 2016-08-24 11:23 | PN ---
Progress Note (short form) - Note Progress Note: CC: anemia/chf exacerbation, no cigs S: no cp, palps, dizziness, sob, orthopnea, le edema improved as well; no abd distension; feeling better overall Vital Signs Temp 98 F 08/24/16 09:00 Pulse 100 H 08/24/16 09:00 Resp 20 08/24/16 09:00 BP 102/62 08/24/16 09:00 Pulse Ox 97 08/24/16 09:00 Intake & Output 08/23/16 08/23/16 08/24/16 11:59 23:59 11:59 Intake Total 84 84 84 Output Total 800 1900 Balance -716 -1816 84 Weight 135 lb 3.2 oz 133 lb Intake: IV 84 84 84 Milrinone 20Mg/100Ml Ivpb 84 84 84 - 100 ml @ 0.375 MCG/KG/ MIN 6.992 mls/hr IVPB TITR [facility] Rx#:[id number] Output: Urine 800 1900 Villaseñor 800 1900 Other: Voiding Method Indwelling Catheter Incontinent Incontinent # Unmeasured Voids Villaseñor 1 1 Bowel Movement Yes Weight Measurement Method Standing Scale Standing Scale Constitutional: Yes: Well Nourished, No Distress Eyes: No: Sclera Icterus Respiratory: Yes: diffuse rhonchi No: Accessory Muscle Use, Wheezes Gastrointestinal: Yes: Normal Bowel Sounds. no Distention, No Hepatomegaly, Palpable Mass, Tenderness Cardiovascular: Yes: Regular Rate and Rhythm (soft heart sounds) Heart Sounds: Yes: S1, S2. No: Gallop Murmur: 2/6 high pitched sys murmur at lsb and apex Extremities: No: Cold, Cyanosis Edema: no le edema/c/c Peripheral Pulses:+dp pt Integumentary: No: Jaundice diaphoresis Neurological: Yes: Alert, appropriate Psychiatric: No: Agitated Current Medications Generic Name Dose Route Start Last Admin Trade Name Freq PRN Reason Stop Dose Admin Acetaminophen 650 mg 08/20/16 10:41 08/22/16 00:23 Tylenol - PO 650 mg Q6H PRN Administration FEVER OR PAIN Albuterol Sulfate 1 amp 08/20/16 12:00 08/24/16 06:33 Ventolin 0.083% Nebulizer Soln - NEB 1 amp QIDR [facility] Administration Ascorbic Acid 500 mg 08/21/16 10:00 08/24/16 09:16 Vitamin C - PO 500 mg DAILY [facility] Administration Atorvastatin Calcium 10 mg 08/20/16 22:00 08/23/16 21:30 Lipitor - PO 10 mg HS [facility] Administration Chlorhexidine Gluconate 1 applic 08/20/16 22:00 08/23/16 21:31 Hibiclens For Decolonization - TP Not Given HS [facility] Ferrous Sulfate 325 mg 08/21/16 10:00 08/24/16 09:16 Feosol - PO 325 mg DAILY [facility] Administration Furosemide 80 mg 08/20/16 14:00 08/24/16 06:26 Lasix Injection - IVPUSH 80 mg 0600,1400,2000 [facility] Administration Milrinone Lactate/Dextrose 100 mls @ 6.992 mls/hr 08/21/16 09:30 08/23/16 21:30 Milrinone 20mg/100ml Ivpb - IVPB 6.992 mls/hr TITR [facility] Administration 0.375 MCG/KG/MIN Polyethylene Glycol 17 gm 08/21/16 10:00 08/24/16 09:16 Miralax (For Daily Use) - PO 17 gm DAILY [facility] Administration Potassium Chloride 20 meq 08/23/16 22:00 08/24/16 09:16 K-Dur - PO 20 meq BID [facility] Administration Prednisone 20 mg 08/21/16 10:00 08/24/16 09:16 Deltasone - PO 20 mg DAILY [facility] Administration Ranitidine HCl 150 mg 08/20/16 22:00 08/24/16 09:16 Zantac - PO 150 mg BID [facility] Administration - Other Data Labs, Other Data: Laboratory Last Values WBC 19.9 K/mm3 (4.0-10.0) H D 08/24/16 05:35 RBC 4.31 M/mm3 (4.00-5.60) 08/24/16 05:35 Hgb 8.8 GM/dL (11.7-16.9) L 08/24/16 05:35 Hct 31.8 % (35.4-49) L 08/24/16 05:35 MCV 73.8 fl (80-96) L 08/24/16 05:35 MCHC 27.8 g/dl (32.0-35.9) L 08/24/16 05:35 RDW 28.8 % (11.9-15.9) H 08/24/16 05:35 Plt Count 194 K/MM3 (134-434) 08/24/16 05:35 MPV 8.8 fl (7.5-11.1) 08/24/16 05:35 Neutrophils % 87.8 % (42.8-82.8) H 08/22/16 05:50 Lymphocytes % 3.3 % (8-40) L 08/22/16 05:50 Monocytes % 8.8 % (3.8-10.2) 08/22/16 05:50 Eosinophils % 0.0 % (0-4.5) 08/22/16 05:50 Basophils % 0.1 % (0-2.0) D 08/22/16 05:50 Platelet Estimate Adequate (NORMAL) 08/19/16 05:27 Platelet Comment No clumping noted 08/19/16 05:27 Polychromasia 1+ 08/19/16 05:27 Hypochromic-Microcytic 2+ 08/19/16 05:27 Poikilocytosis 1+ 08/19/16 05:27 Basophilic Stippling Few 08/19/16 05:27 Anisocytosis 3+ 08/19/16 05:27 Microcytosis 2+ 08/19/16 05:27 Target Cells Few 08/19/16 05:27 Ovalocytes 1+ 08/19/16 05:27 INR 1.66 (0.82-1.09) H 08/14/16 07:55 PTT (Actin FS) 30.9 SECONDS (26.9-34.4) 08/13/16 15:45 VBG pH 7.30 (7.32-7.42) L 08/13/16 15:54 POC VBG pCO2 49.2 mmHg (38-52) 08/13/16 15:54 POC VBG pO2 25.4 mmHg (28-48) L 08/13/16 15:54 Mixed VBG HCO3 23.4 meq/L (19-25) 08/13/16 15:54 Sodium 148 mmol/L (136-145) H 08/24/16 05:35 Potassium 4.4 mmol/L (3.5-5.1) D 08/24/16 05:35 Chloride 103 mmol/L (98-107) 08/24/16 05:35 Carbon Dioxide 36 mmol/L (21-32) H 08/24/16 05:35 Anion Gap 9 (8-16) 08/24/16 05:35 BUN 41 mg/dL (7-18) H 08/24/16 05:35 Creatinine 1.3 mg/dL (0.7-1.3) 08/24/16 05:35 Creat Clearance w eGFR 53.67 (>60) 08/24/16 05:35 Random Glucose 131 mg/dL (74-106) H D 08/24/16 05:35 Lactic Acid 1.712 mmol/L (0.4-2.0) 08/14/16 07:55 Calcium 8.2 mg/dL (8.5-10.1) L 08/24/16 05:35 Phosphorus 3.7 mg/dL (2.5-4.9) 08/20/16 05:20 Magnesium 2.3 mg/dL (1.8-2.4) 08/23/16 05:40 Iron 15 ug/dL (38-169) L 08/13/16 15:50 TIBC 305 ug/dL (250-450) 08/13/16 15:50 Iron Saturation 5 % (15-55) L 08/13/16 15:50 Ferritin 28.597 ng/ml (16.4-293.9) 08/13/16 12:00 Total Bilirubin 2.1 mg/dL (0.2-1.0) H 08/24/16 05:35 AST 21 U/L (15-37) 08/24/16 05:35 ALT 22 U/L (12-78) 08/24/16 05:35 Alkaline Phosphatase 146 U/L (45-117) H 08/24/16 05:35 Creatine Kinase 67 IU/L (39-308) 08/13/16 15:45 Troponin I 0.06 ng/ml (0.00-0.05) H D 08/13/16 15:45 B-Natriuretic Peptide 45503.44 pg/ml (5-450) H 08/16/16 20:30 Total Protein 6.7 g/dl (6.4-8.2) 08/24/16 05:35 Albumin 2.5 g/dl (3.4-5.0) L 08/24/16 05:35 TSH 2.00 uIU/ml (0.358-3.74) 08/13/16 12:00 Stool Occult Blood Negative (NEGATIVE) 08/13/16 17:00 Blood Type A POSITIVE 08/13/16 15:45 Antibody Screen Negative 08/13/16 15:45 Crossmatch See Detail 08/13/16 15:45 tele: v-paced, occ pvcs Abd u/a: moderate amount of ascites in upper abdomen. Liver and spleen findings c/w cirrhosis. cath 08/02 all grafts patent (self to lad, svg to lcx, svg to rpda) Echo 07/2016 (this admit): mod lve, sev reduced LV fn (global). mild rve with mild hypo (severe TR, intrinsic RV fn likely more depressed), 1+ connie. 1+ mr, severe tr, mod phtn, pl effusion Echo 07/2015: sev lve, sev reduced lvef (global). grade 2 diastolic dysfunction. nl RV. mild connie. dilated ivc. mod mr, mod-sev tr, sev phtn, mild pr. Echo 08/03: sev LVE with severe decr EF; mild RV dil with moderate hypo; mod MR/ TR; RVSP >60 cxr 08/21: congestive changes remain Assessment/Plan 76 yo recent smoker (quit 6 mo ago) with h/o CAD s/p CABG, ischemic CM with EF 25% s/p BiVICD with secondary severe pulmonary hypertension, prior CVA, HL, copd, CKD, bph, chronic iron deficiency anemia who p/w worsened cough, sob, hypotension and noted to have profound anemia. Pre-operative clearance/anemia. -hgb remains stable since prbcs transfused -RCRI of 3 with decompensated chf and low bp here. Has estimated high risk for jd-operative CV complications. Would optimize cardiac/pulmonary status if safe to delay endoscopy. still with decompensated heart failure at this time. isch CMP (acute systolic CHF exacerbation) - s/p BiVICD --> routine outpatient monitoring. Last checked this month. Occasional brief nsvt noted on prior checks. - Patient's weight actually stable as outpatient in past month. Possible pulmonary congestion on CXR. ddx infection. trace le edema. After lasix 80 mg IV in ER last night, cr improved, but sodium worsened. Now s/p 2 units of PRBC and lasix 40 mg IV x 1 yesterday 08/14 with improvement in sodium, worsened again overnight. - 08/15: Patient overall comfortable. Unable to accurately assess I/O's, weights --> holding diuresis today so that he will definitively be net positive tomorrow and can reassess hypernatremia tomorrow and hepatic congestion. If worsens then will resume IV lasix. Patient with significant rhonchi and wheezes on exam. Also with moderate ascites on u/s. Frequent nsvt on tele. These findings remain concerning for heart failure exacerbation. Will repeat cxr in am. Echo. Replete electrolytes. Reluctant to add beta alondra while with active wheezes and unclear if he is decompensated. If needed overnight can start short acting low dose metoprolol. - 08/16: significant worsening of abdominal distension and edema without lasix yesterday. Initiating bid diuresis with lasix 80 mg IV BID. BMP this evening prior to second lasix dose to monitor sodium and potassium. Reluctant to add beta alondra while with active wheezes and unclear if he is decompensated. - 08/17: nsvt/ectopy improved with diuresis. Echo shows worsened RV function. Patient likely with acute decompensated HF and superimposed RV HF exacerbation. BUN rising. Will start milrinone to augment RV function and reduce pulmonary pressures. Con't bid lasix. -08/18: cont milrinone and iv lasix, cr stable today. cxr still with chf. -08/19: milrinone stopped yesterday due to hypotension. clinically seems less vol overloaded. cr stable. cont iv lasix. will check cxr tomorrow am to monitor progress. -08/20: bnp 13K here initially, up to 17K (prior range 2K-5K) no weights; ++JVD persists, renal fxn improving. cxr reviewed: improving vs prior (L effusion resolved), overpenetrated film vs prior confounds--some chf changes persist. he is likely still signif volume overloaded; he may have JVD even when at target wt due to severe TR and RV dysfunction, although i do not think he is at target wt based on cxr appearance and JVD to jaw; will increase lasix (to 80 iv TID), follow UOP (lakhwinder). if does not diurese well or becomes hypotensive, will need to resume milrinone with pressors (dopa if ventric ectopy can tolerate ; otherwise vasopressin) - 5/2: still with ++ abdominal distension/ascites, early satiety, dependent edema and congestive changes on cxr. diurested will on tid lasix, but sodium bumped. Will resume milrinone to augment RV contractility and decrease pulmonary pressures. Repeat bmp this afternoon to make sure sodium heading in right direction. con't strict I/O q shift. standing weights. telemetry monitoring. baseline sys bp's typically 100's, monitor for hypotension on milrinone. can switch to dobutmine if vasodilatory effect of milrinone is too much. -08/22: cr stable, wt down, symptomatically improved. na and bicarb rising, may be reaching a dry wt. will cont same iv lasix/milrinone today and monitor chem7 tomorrow to see if need to adjust diuretics further. -08/23-5: wt continues to decrease, na better as well. cr stable. Will cont same milrinone/lasix until wt plateaus or signs of getting dry -was not on bb, aceI at home due to prior side effects of hypotension, dizziness CAD s/p h/o CABG 2006 - holding ASA, plavix. If anti-platelets can be resumed, would consider resuming ASA alone. - no angina or signs acs h/o CVA: -was on ASA, plavix --> on hold as above. V Tach: - nsvt seen on prior ICD checks and on tele here as well. - electrolyte repletion prn. - con't telemetry monitoring. - if bp improves would try low dose bb PAT - no recurrence on recent ICD check. - brief episodes on tele here a.e. COPD: -On steroids, pulm following
--- NOTE | 2016-08-24 11:25 | PN ---
Progress Note (short form) - Note Progress Note: PULMONARY AWAKE/ALERT OOB TO CHAIR DENIES CP/SOB APPEARS STABLE VSS ANICTERIC SCATTERED RHONCHI B/L MINIMAL S1S2 BS+ NO EDEMA LABS/MEDS/NOTES/IMAGING/MICRO REVIEWED Acute Respiratory Distress resolved Acute COPD Exacerbation Acute on Chronic Severe LV Systolic Dysfunction Lactic Acidosis resolved Anemia s/p PRBC transfusions Acute on Chronic Renal Failure CAD s/p CABG - continue lasix ,milrinone - monitor urine output, creatinine - monitor H/H - taper steroids - inhaled bronchodilators - replete lytes - DVT/GI prophylaxis Marita KERR MD
--- NOTE | 2016-08-24 11:57 | PN ---
Progress Note (short form) - Note Progress Note: Subjective Patient seen and examined. Chart reviewed. Sitting in chair. Comfortable. Mild SOB present. Denies chest pain. Objective Last Vital Signs Temp Pulse Resp BP Pulse Ox 98 F 100 H 20 102/62 97 08/24/16 09:00 08/24/16 09:00 08/24/16 09:00 08/24/16 09:00 08/24/16 09:00 CBC, BMP 08/24/16 05:35 08/24/16 05:35 Laboratory Results - last 24 hr 08/24/16 08/24/16 05:35 05:35 WBC 19.9 H D RBC 4.31 Hgb 8.8 L Hct 31.8 L MCV 73.8 L MCHC 27.8 L RDW 28.8 H Plt Count 194 MPV 8.8 Sodium 148 H Potassium 4.4 D Chloride 103 Carbon Dioxide 36 H Anion Gap 9 BUN 41 H Creatinine 1.3 Creat Clearance w eGFR 53.67 Random Glucose 131 H D Calcium 8.2 L Total Bilirubin 2.1 H AST 21 ALT 22 Alkaline Phosphatase 146 H Total Protein 6.7 Albumin 2.5 L Physical Exam Constitutional: Yes: No Distress Cardiovascular: Yes: Regular Rate and Rhythm, Murmur Respiratory: Yes: Scattered rhonchi Gastrointestinal: Yes: Normal Bowel Sounds, Soft, Abdomen, Obese, Distention. No: Tenderness Edema: No Assessment and Plan Clinically stable. Med reviewed. Continue present care. Monitor electrolytes closely. Will follow. Documentation prepared by Kaitlin Thompson, acting as a faculty i on call medical assistant for Purnima Driscoll MD. <Kaitlin Thompson - Last Filed: 08/24/16 12:07> Problem List - Problems (1) Anemia Code(s): D64.9 - ANEMIA, UNSPECIFIED Qualifiers: Anemia type: unspecified type Qualified Code(s): D64.9 - Anemia, unspecified (2) CHF (congestive heart failure) Code(s): I50.9 - HEART FAILURE, UNSPECIFIED Qualifiers: Congestive heart failure type: combined Congestive heart failure chronicity: acute on chronic Qualified Code(s): I50.43 - Acute on chronic combined systolic (congestive) and diastolic (congestive) heart failure (3) CKD (chronic kidney disease) Code(s): N18.9 - CHRONIC KIDNEY DISEASE, UNSPECIFIED Qualifiers: Chronic kidney disease stage: unspecified stage Qualified Code(s): N18.9 - Chronic kidney disease, unspecified (4) COPD (chronic obstructive pulmonary disease) Code(s): J44.9 - CHRONIC OBSTRUCTIVE PULMONARY DISEASE, UNSPECIFIED (5) Hypotension Code(s): I95.9 - HYPOTENSION, UNSPECIFIED (6) Lactic acid blood increased Code(s): R79.89 - OTHER SPECIFIED ABNORMAL FINDINGS OF BLOOD CHEMISTRY (7) Pacemaker Code(s): Z95.0 - PRESENCE OF CARDIAC PACEMAKER <Purnima Driscoll - Last Filed: 08/24/16 11:57>
[2016-08-24] MEDS: MILRINONE 20MG/100ML IVPB - 100 ML IVPB SCH (12:12)
[2016-08-24] MEDS: CHLORHEXIDINE GLUCONATE 4% CLEANSER FOR DECOLONIZATION TP SCH (22:50)
[2016-08-24] MEDS: ATORVASTATIN CA 10 MG TABLET (FP) PO SCH (22:50)
[2016-08-25] MEDS: MILRINONE 20MG/100ML IVPB - 100 ML IVPB SCH ×3 (04:00→17:02)
[2016-08-25] MEDS: ALBUTEROL SO4 0.083% IH SOL 2.5 MG/3 ML VIAL.NEB. NEB SCH ×2 (06:38→11:49)
[2016-08-25] MEDS: FUROSEMIDE 40 MG/4 ML INJECTABLE VIAL IVPUSH SCH ×3 (07:56→21:24)
--- NOTE | 2016-08-25 07:58 | PN ---
Progress Note, Physician Chief Complaint: chf History of Present Illness: breathing remains somewhat short and uncomfortable--not normal for him slight chest tightness, no pain no palpitations, leg swelling - Current Medication List Current Medications: Active Medications Acetaminophen (Tylenol -) 650 mg PO Q6H PRN PRN Reason: FEVER OR PAIN Last Admin: 08/22/16 00:23 Dose: 650 mg Albuterol Sulfate (Ventolin 0.083% Nebulizer Soln -) 1 amp NEB QIDR [facility] Last Admin: 08/25/16 06:38 Dose: 1 amp Ascorbic Acid (Vitamin C -) 500 mg PO DAILY [facility] Last Admin: 08/24/16 09:16 Dose: 500 mg Atorvastatin Calcium (Lipitor -) 10 mg PO HS [facility] Last Admin: 08/24/16 22:50 Dose: 10 mg Chlorhexidine Gluconate (Hibiclens For Decolonization -) 1 applic TP [facility] Last Admin: 08/24/16 22:50 Dose: Not Given Ferrous Sulfate (Feosol -) 325 mg PO DAILY [facility] Last Admin: 08/24/16 09:16 Dose: 325 mg Furosemide (Lasix Injection -) 80 mg IVPUSH 0600,1400,2000 [facility] Last Admin: 08/24/16 22:50 Dose: 80 mg Milrinone Lactate/Dextrose (Milrinone 20mg/100ml Ivpb -) 100 mls @ 6.992 mls/ hr IVPB TITR [facility] PRN Reason: 0.375 MCG/KG/MIN Last Admin: 08/24/16 12:12 Dose: 6.992 mls/hr Polyethylene Glycol (Miralax (For Daily Use) -) 17 gm PO DAILY [facility] Last Admin: 08/24/16 09:16 Dose: 17 gm Potassium Chloride (K-Dur -) 20 meq PO BID [facility] Last Admin: 08/24/16 22:49 Dose: 20 meq Prednisone (Deltasone -) 20 mg PO DAILY [facility] Last Admin: 08/24/16 09:16 Dose: 20 mg Ranitidine HCl (Zantac -) 150 mg PO BID [facility] Last Admin: 08/24/16 22:49 Dose: 150 mg - Objective Vital Signs: Vital Signs Temperature 98 F 08/25/16 06:45 Pulse Rate 94 H 08/25/16 06:45 Respiratory Rate 20 08/25/16 06:45 Blood Pressure 98/67 08/25/16 06:45 O2 Sat by Pulse Oximetry (%) 95 08/24/16 21:00 Constitutional: Yes: No Distress, Calm Eyes: No: Sclera Icterus HENT: No: Nasal Congestion Cardiovascular: Yes: Regular Rate and Rhythm, JVD, S1, S2, Other (PMI non diplaced). No: Gallop, Murmur Respiratory: Yes: Rales (L base), Wheezes. No: Accessory Muscle Use Gastrointestinal: Yes: Normal Bowel Sounds, Soft. No: Tenderness Musculoskeletal: Yes: Other (No kyphosis) Extremities: No: Cold Edema: No Integumentary: No: Jaundice Neurological: Yes: Alert, Oriented (x3) Psychiatric: No: Agitated Labs: CBC, BMP 08/24/16 05:35 INR, PTT INR 1.66 (0.82-1.09) H 08/14/16 07:55 - ....Imaging EKG: Other (tele: NSR, V-sensed alternating with V-paced; brief runs NSVT and SVT) Assessment/Plan Abd sono: moderate amount of ascites in upper abdomen. Liver and spleen findings c/w cirrhosis. cath 08/02 all grafts patent (self to lad, svg to lcx, svg to rpda) Echo 07/2016 (this admit): mod lve, sev reduced LV fn (global). mild rve with mild hypo (severe TR, intrinsic RV fn likely more depressed), 1+ connie. 1+ mr, severe tr, mod phtn, pl effusion cxr /: congestive changes remain Assessment/Plan 76 yo recent smoker (quit 6 mo ago) with h/o CAD s/p CABG, ischemic CM with EF 25% s/p BiVICD with secondary severe pulmonary hypertension, prior CVA, HL, copd, CKD, bph, chronic iron deficiency anemia who p/w worsened cough, sob, hypotension and noted to have profound anemia. Pre-operative clearance/anemia. -hgb remains stable since prbcs transfused -RCRI of 3 with decompensated chf and low bp here. Has estimated high risk for jd-operative CV complications. Would optimize cardiac/pulmonary status if safe to delay endoscopy. still with decompensated heart failure at this time. isch CMP (acute systolic CHF exacerbation) - Patient's weight actually stable as outpatient in past month. Possible pulmonary congestion on CXR. ddx infection. trace le edema. After lasix 80 mg IV in ER last night, cr improved, but sodium worsened. Now s/p 2 units of PRBC and lasix 40 mg IV x 1 yesterday 08/14 with improvement in sodium, worsened again overnight. - 08/15: Patient overall comfortable. Unable to accurately assess I/O's, weights --> holding diuresis today so that he will definitively be net positive tomorrow and can reassess hypernatremia tomorrow and hepatic congestion. If worsens then will resume IV lasix. Patient with significant rhonchi and wheezes on exam. Also with moderate ascites on u/s. Frequent nsvt on tele. These findings remain concerning for heart failure exacerbation. Will repeat cxr in am. Echo. Replete electrolytes. Reluctant to add beta alondra while with active wheezes and unclear if he is decompensated. If needed overnight can start short acting low dose metoprolol. - 08/16: significant worsening of abdominal distension and edema without lasix yesterday. Initiating bid diuresis with lasix 80 mg IV BID. BMP this evening prior to second lasix dose to monitor sodium and potassium. Reluctant to add beta alondra while with active wheezes and unclear if he is decompensated. - 08/17: nsvt/ectopy improved with diuresis. Echo shows worsened RV function. Patient likely with acute decompensated HF and superimposed RV HF exacerbation. BUN rising. Will start milrinone to augment RV function and reduce pulmonary pressures. Con't bid lasix. -08/18: cont milrinone and iv lasix, cr stable today. cxr still with chf. -08/19: milrinone stopped yesterday due to hypotension. clinically seems less vol overloaded. cr stable. cont iv lasix. will check cxr tomorrow am to monitor progress. -08/20: bnp 13K here initially, up to 17K (prior range 2K-5K) no weights; ++JVD persists, renal fxn improving. cxr reviewed: improving vs prior (L effusion resolved), overpenetrated film vs prior confounds--some chf changes persist. he is likely still signif volume overloaded; he may have JVD even when at target wt due to severe TR and RV dysfunction, although i do not think he is at target wt based on cxr appearance and JVD to jaw; will increase lasix (to 80 iv TID), follow UOP (lakhwinder). if does not diurese well or becomes hypotensive, will need to resume milrinone with pressors (dopa if ventric ectopy can tolerate ; otherwise vasopressin) - 08/21: still with ++ abdominal distension/ascites, early satiety, dependent edema and congestive changes on cxr. diurested will on tid lasix, but sodium bumped. Will resume milrinone to augment RV contractility and decrease pulmonary pressures. Repeat bmp this afternoon to make sure sodium heading in right direction. con't strict I/O q shift. standing weights. telemetry monitoring. baseline sys bp's typically 100's, monitor for hypotension on milrinone. can switch to dobutmine if vasodilatory effect of milrinone is too much. -08/22: cr stable, wt down, symptomatically improved. na and bicarb rising, may be reaching a dry wt. will cont same iv lasix/milrinone today and monitor chem7 tomorrow to see if need to adjust diuretics further. -08/23-5: wt continues to decrease, na better as well. cr stable. Will cont same milrinone/lasix until wt plateaus or signs of getting dry -08/25: no further weight decline today (134 lbs), office wts 148-157 over past 3 mo; BP trend down (70s-90s overnight); ongoing massive EJ distension, with rales and wheezing -rpt cxr today stable vs prior (overall partially improved since admit, persistent L effusion and mild pulm edema) -suspect he remains volume up -start vasopressin low dose (0.03 u/min-i.e. 0.2 u/hr) for bp support, to allow ongoing milrinone inotropy -cont lasix 80 iv tid today--will incr diuretics tomorrow if wt not coming down -was not on bb, aceI at home due to prior side effects of hypotension, dizziness -will review office BiV PM check done recently--tele here appears to not be high burden of BiV pacing, ? needs optimization by EP service ascites, imaging evidence of cirrhosis: -? cardiac cirrhosis from right sided chf/severe TR -chf optimization as doing -defer ? further GI/liver eval to pmd/outpt cardio CAD s/p h/o CABG 2006 - holding ASA, plavix. If anti-platelets can be resumed, would consider resuming ASA alone. - no angina or signs acs h/o CVA: -was on ASA, plavix --> on hold as above. V Tach: - nsvt seen on prior ICD checks and on tele here as well. - electrolyte repletion prn. - con't telemetry monitoring. - once bp improves would try low dose bb PAT/PSVT - brief episodes on tele here a.e. COPD: -On steroids, pulm following est crit care time 35min
[2016-08-25 08:40] LABS: CALCIUM 7.9 mg/dL (8.5-10.1)
[2016-08-25 08:46] LABS: ALBUMIN 2.2 g/dl (3.4-5.0); BILIRUBIN,TOTAL 1.7 mg/dL (0.2-1.0); COCKROFT - GAULT 41.68; CREATININE 1.3 mg/dL (0.7-1.3); TOT PROT 5.7 g/dl (6.4-8.2)
[2016-08-25] MEDS: RANITIDINE HCL 150 MG TABLET (FP) PO SCH ×2 (09:44→21:24)
[2016-08-25] MEDS: predniSONE 20 MG TABLET (UD) PO SCH (09:44)
[2016-08-25] MEDS: ASCORBIC ACID 500 MG TABLET (FP) PO SCH (09:44)
[2016-08-25] MEDS: FERROUS SO4 325 MG TABLET (FP) PO SCH (09:44)
[2016-08-25] MEDS: POTASSIUM CHLORIDE TABS 20 MEQ TABLET.ER (FP) PO SCH ×2 (09:44→21:24)
[2016-08-25] MEDS: POLYETHYLENE GLYCOL 3350 119 GM BTL PO SCH (09:45)
--- NOTE | 2016-08-25 11:31 | PN ---
Progress Note (short form) - Note Progress Note: pt seen/ examined cardiology f/u noted pt awake/ mild sob + denies cp. Dysnea + afebrile Vital Signs Temp 98 F 08/25/16 06:45 Pulse 94 H 08/25/16 06:45 Resp 20 08/25/16 06:45 BP 98/67 08/25/16 06:45 Pulse Ox 95 08/24/16 21:00 Intake & Output 08/24/16 08/24/16 08/25/16 11:59 23:59 11:59 Intake Total 84 360 Balance 84 360 Weight 133 lb 134 lb 6.4 oz Intake: IV 84 Milrinone 20Mg/100Ml Ivpb 84 - 100 ml @ 0.375 MCG/KG/ MIN 6.992 mls/hr IVPB TITR [facility] Rx#:[id number] Oral 360 Other: Voiding Method Incontinent Diaper Incontinent # Unmeasured Voids Void 4 Villaseñor 1 Weight Measurement Method Standing Scale Standing Scale Active Medications Acetaminophen (Tylenol -) 650 mg PO Q6H PRN PRN Reason: FEVER OR PAIN Last Admin: 08/22/16 00:23 Dose: 650 mg Albuterol Sulfate (Ventolin 0.083% Nebulizer Soln -) 1 amp NEB QIDR [facility] Last Admin: 08/25/16 06:38 Dose: 1 amp Ascorbic Acid (Vitamin C -) 500 mg PO DAILY [facility] Last Admin: 08/25/16 09:44 Dose: 500 mg Atorvastatin Calcium (Lipitor -) 10 mg PO [facility] Last Admin: 08/24/16 22:50 Dose: 10 mg Chlorhexidine Gluconate (Hibiclens For Decolonization -) 1 applic TP [facility] Last Admin: 08/24/16 22:50 Dose: Not Given Ferrous Sulfate (Feosol -) 325 mg PO DAILY [facility] Last Admin: 08/25/16 09:44 Dose: 325 mg Furosemide (Lasix Injection -) 80 mg IVPUSH 0600,1400,2000 [facility] Last Admin: 08/25/16 07:56 Dose: 80 mg Milrinone Lactate/Dextrose (Milrinone 20mg/100ml Ivpb -) 100 mls @ 6.992 mls/ hr IVPB TITR [facility] PRN Reason: 0.375 MCG/KG/MIN Last Admin: 08/25/16 09:46 Dose: 6.992 mls/hr Vasopressin 50 units/ Sodium (Chloride) 100 mls @ 4 mls/hr IVPB ASDIR [facility] PRN Reason: 2 UNITS/HR Polyethylene Glycol (Miralax (For Daily Use) -) 17 gm PO DAILY [facility] Last Admin: 08/25/16 09:45 Dose: 17 gm Potassium Chloride (K-Dur -) 20 meq PO BID [facility] Last Admin: 08/25/16 09:44 Dose: 20 meq Prednisone (Deltasone -) 20 mg PO DAILY [facility] Last Admin: 08/25/16 09:44 Dose: 20 mg Ranitidine HCl (Zantac -) 150 mg PO BID [facility] Last Admin: 08/25/16 09:44 Dose: 150 mg CBC, BMP 08/24/16 05:35 08/25/16 05:35 Physical Exam Constitutional: Yes: Mild distress Cardiovascular: Yes: Regular Rate and Rhythm, Murmur Respiratory: Yes: Scattered rhonchi bilaterally Gastrointestinal: Yes: soft / slightly distended Edema: No Assessment and Plan continue present care per cardiology -- need to start on vasopressin to maintain bp i called icu attending -- will transfer discussed with nursing staff will follow Problem List - Problems (1) Anemia Code(s): D64.9 - ANEMIA, UNSPECIFIED Qualifiers: Anemia type: unspecified type Qualified Code(s): D64.9 - Anemia, unspecified (2) CHF (congestive heart failure) Code(s): I50.9 - HEART FAILURE, UNSPECIFIED Qualifiers: Congestive heart failure type: combined Congestive heart failure chronicity: acute on chronic Qualified Code(s): I50.43 - Acute on chronic combined systolic (congestive) and diastolic (congestive) heart failure (3) CKD (chronic kidney disease) Code(s): N18.9 - CHRONIC KIDNEY DISEASE, UNSPECIFIED Qualifiers: Chronic kidney disease stage: unspecified stage Qualified Code(s): N18.9 - Chronic kidney disease, unspecified (4) COPD (chronic obstructive pulmonary disease) Code(s): J44.9 - CHRONIC OBSTRUCTIVE PULMONARY DISEASE, UNSPECIFIED (5) Hypotension Code(s): I95.9 - HYPOTENSION, UNSPECIFIED (6) Lactic acid blood increased Code(s): R79.89 - OTHER SPECIFIED ABNORMAL FINDINGS OF BLOOD CHEMISTRY (7) Pacemaker Code(s): Z95.0 - PRESENCE OF CARDIAC PACEMAKER
[2016-08-25] MEDS ORDERED: VASOPRESSIN 20 UNITS/ML VIAL IV ONE (13:15)
[2016-08-25] MEDS: VASOPRESSIN 50 UNITS in SODIUM CHLORIDE 97.5 ML IVPB SCH (13:30)
--- NOTE | 2016-08-25 15:17 | CONSULT ---
Consult - text type - Consultation Consultation Note: PULM / CRITICAL CARE MEDICINE: ICU ADMISSION NOTE: Pt left the ICU 48hrs ago. See prior Pulm consult notes. In brief he is 76 with COPD and end stage heart failure, has CKD and cirrhosis on imaging. Was on Milrinone and Lasix, transferred to the floor. UOP was dropping off and renal fxn worse so he was transferred back to the ICU for a trial of Vasopressin drip to improve renal perfusion. Current Medications Acetaminophen (Tylenol -) 650 mg PO Q6H PRN PRN Reason: FEVER OR PAIN Last Admin: 08/22/16 00:23 Dose: 650 mg Ascorbic Acid (Vitamin C -) 500 mg PO DAILY [facility] Last Admin: 08/25/16 09:44 Dose: 500 mg Atorvastatin Calcium (Lipitor -) 10 mg PO HS [facility] Last Admin: 08/24/16 22:50 Dose: 10 mg Chlorhexidine Gluconate (Hibiclens For Decolonization -) 1 applic TP HS [facility] Last Admin: 08/24/16 22:50 Dose: Not Given Ferrous Sulfate (Feosol -) 325 mg PO DAILY [facility] Last Admin: 08/25/16 09:44 Dose: 325 mg Furosemide (Lasix Injection -) 80 mg IVPUSH 0600,1400,2000 [facility] Last Admin: 08/25/16 07:56 Dose: 80 mg Milrinone Lactate/Dextrose (Milrinone 20mg/100ml Ivpb -) 100 mls @ 6.992 mls/ hr IVPB TITR [facility] PRN Reason: 0.375 MCG/KG/MIN Last Admin: 08/25/16 09:46 Dose: 6.992 mls/hr Vasopressin 50 units/ Sodium (Chloride) 100 mls @ 4 mls/hr IVPB ASDIR [facility] PRN Reason: 2 UNITS/HR Last Admin: 08/25/16 13:30 Dose: 4 mls/hr Polyethylene Glycol (Miralax (For Daily Use) -) 17 gm PO DAILY [facility] Last Admin: 08/25/16 09:45 Dose: 17 gm Potassium Chloride (K-Dur -) 20 meq PO BID [facility] Last Admin: 08/25/16 09:44 Dose: 20 meq Prednisone (Deltasone -) 20 mg PO DAILY [facility] Last Admin: 08/25/16 09:44 Dose: 20 mg Ranitidine HCl (Zantac -) 150 mg PO BID [facility] Last Admin: 08/25/16 09:44 Dose: 150 mg Vital Signs Temp 99.2 F 08/25/16 12:51 Pulse 97 H 08/25/16 13:32 Resp 20 08/25/16 13:32 BP 101/62 08/25/16 13:32 Pulse Ox 96 08/25/16 12:44 Intake & Output 08/24/16 08/25/16 08/25/16 18:59 06:59 18:59 Intake Total 360 Balance 360 Weight 60.963 kg 62 kg Intake: Oral 360 Other: Voiding Method Incontinent Incontinent Diaper # Unmeasured Voids Void 4 Weight Measurement Method Standing Scale Gen: NAD at rest Heart: RRR Lung: decreased breath sounds at the bases Abd: distended, ascites, non-tender Ext: no edema CBC, BMP 08/24/16 05:35 08/25/16 05:35 A/P Acute COPD Exacerbation Acute on Chronic Severe LV Systolic Dysfunction Cirrhosis Acute on Chronic Renal Failure CAD s/p CABG - continue lasix, milrinone gtt - adding Vaso to increase MAPs - monitor urine output, creatinine - monitor H/H - taper off steroids - inhaled bronchodilators - replete lytes - consider LVP for comfort - DVT/GI prophylaxis - telemetry monitoring Thank you for this interesting consult Feliciano Rockwell Pulm/Critical Care MUSHRO[employer] CULTIVATOR
[2016-08-25] MEDS: ATORVASTATIN CA 10 MG TABLET (FP) PO SCH (21:24)
[2016-08-25] MEDS: CHLORHEXIDINE GLUCONATE 4% CLEANSER FOR DECOLONIZATION TP SCH (21:24)
[2016-08-26] MEDS: FUROSEMIDE 40 MG/4 ML INJECTABLE VIAL IVPUSH SCH ×3 (05:54→21:31)
--- NOTE | 2016-08-26 09:08 | PN ---
Progress Note, Physician Chief Complaint: chf History of Present Illness: still breathing "not good" denies cp no palpitations, dizzy - Current Medication List Current Medications: Active Medications Acetaminophen (Tylenol -) 650 mg PO Q6H PRN PRN Reason: FEVER OR PAIN Last Admin: 08/22/16 00:23 Dose: 650 mg Ascorbic Acid (Vitamin C -) 500 mg PO DAILY [facility] Last Admin: 08/25/16 09:44 Dose: 500 mg Atorvastatin Calcium (Lipitor -) 10 mg PO HS [facility] Last Admin: 08/25/16 21:24 Dose: 10 mg Chlorhexidine Gluconate (Hibiclens For Decolonization -) 1 applic TP HS [facility] Last Admin: 08/25/16 21:24 Dose: 1 applic Ferrous Sulfate (Feosol -) 325 mg PO DAILY [facility] Last Admin: 08/25/16 09:44 Dose: 325 mg Furosemide (Lasix Injection -) 80 mg IVPUSH 0600,1400,2000 [facility] Last Admin: 08/26/16 05:54 Dose: 80 mg Milrinone Lactate/Dextrose (Milrinone 20mg/100ml Ivpb -) 100 mls @ 6.992 mls/ hr IVPB TITR [facility] PRN Reason: 0.375 MCG/KG/MIN Last Admin: 08/25/16 17:02 Dose: 6.992 mls/hr Vasopressin 50 units/ Sodium (Chloride) 100 mls @ 4 mls/hr IVPB ASD[facility] PRN Reason: 2 UNITS/HR Last Admin: 08/25/16 13:30 Dose: 4 mls/hr Polyethylene Glycol (Miralax (For Daily Use) -) 17 gm PO DAILY [facility] Last Admin: 08/25/16 09:45 Dose: 17 gm Potassium Chloride (K-Dur -) 20 meq PO BID [facility] Last Admin: 08/25/16 21:24 Dose: 20 meq Prednisone (Deltasone -) 20 mg PO DAILY [facility] Last Admin: 08/25/16 09:44 Dose: 20 mg Ranitidine HCl (Zantac -) 150 mg PO BID [facility] Last Admin: 08/25/16 21:24 Dose: 150 mg - Objective Vital Signs: Vital Signs Temperature 99.0 F 08/26/16 06:00 Pulse Rate 78 08/26/16 06:00 Respiratory Rate 20 08/26/16 06:00 Blood Pressure 99/56 08/26/16 06:00 O2 Sat by Pulse Oximetry (%) 94 L 08/25/16 21:00 Constitutional: Yes: Well Nourished, No Distress, Calm Cardiovascular: Yes: Regular Rate and Rhythm, JVD (to jaw), Murmur (loud MR/TR murmur (HSM) at LLSB (correction: was present yest as well)), S1, S2. No: Gallop Respiratory: Yes: Regular, Wheezes (diffusely). No: Accessory Muscle Use Extremities: No: Cold Edema: No Neurological: Yes: Alert. No: Seizure Psychiatric: No: Agitated Labs: CBC, BMP 08/24/16 05:35 08/25/16 05:35 INR, PTT INR 1.66 (0.82-1.09) H 08/14/16 07:55 - ....Imaging EKG: Other (tele: NSR with V-P > V-S; freq runs NSVT (max 29 beats)) Assessment/Plan Abd sono: moderate amount of ascites in upper abdomen. Liver and spleen findings c/w cirrhosis. cath 08/02 all grafts patent (self to lad, svg to lcx, svg to rpda) Echo 07/2016 (this admit): mod lve, sev reduced LV fn (global). mild rve with mild hypo (severe TR, intrinsic RV fn likely more depressed), 1+ connie. 1+ mr, severe tr, mod phtn, pl effusion cxr /: congestive changes remain Assessment/Plan 76 yo recent smoker (quit 6 mo ago) with h/o CAD s/p CABG, ischemic CM with EF 25% s/p BiVICD with secondary severe pulmonary hypertension, prior CVA, HL, copd, CKD, bph, chronic iron deficiency anemia who p/w worsened cough, sob, hypotension and noted to have profound anemia. Pre-operative clearance/anemia. -hgb remains stable since prbcs transfused -RCRI of 3 with decompensated chf and low bp here. Has estimated high risk for jd-operative CV complications. Would optimize cardiac/pulmonary status if safe to delay endoscopy. still with decompensated heart failure at this time. isch CMP (acute systolic CHF exacerbation) - Patient's weight actually stable as outpatient in past month. Possible pulmonary congestion on CXR. ddx infection. trace le edema. After lasix 80 mg IV in ER last night, cr improved, but sodium worsened. Now s/p 2 units of PRBC and lasix 40 mg IV x 1 yesterday 08/14 with improvement in sodium, worsened again overnight. - 08/15: Patient overall comfortable. Unable to accurately assess I/O's, weights --> holding diuresis today so that he will definitively be net positive tomorrow and can reassess hypernatremia tomorrow and hepatic congestion. If worsens then will resume IV lasix. Patient with significant rhonchi and wheezes on exam. Also with moderate ascites on u/s. Frequent nsvt on tele. These findings remain concerning for heart failure exacerbation. Will repeat cxr in am. Echo. Replete electrolytes. Reluctant to add beta alondra while with active wheezes and unclear if he is decompensated. If needed overnight can start short acting low dose metoprolol. - 08/16: significant worsening of abdominal distension and edema without lasix yesterday. Initiating bid diuresis with lasix 80 mg IV BID. BMP this evening prior to second lasix dose to monitor sodium and potassium. Reluctant to add beta alondra while with active wheezes and unclear if he is decompensated. - 08/17: nsvt/ectopy improved with diuresis. Echo shows worsened RV function. Patient likely with acute decompensated HF and superimposed RV HF exacerbation. BUN rising. Will start milrinone to augment RV function and reduce pulmonary pressures. Con't bid lasix. -08/18: cont milrinone and iv lasix, cr stable today. cxr still with chf. -08/19: milrinone stopped yesterday due to hypotension. clinically seems less vol overloaded. cr stable. cont iv lasix. will check cxr tomorrow am to monitor progress. -08/20: bnp 13K here initially, up to 17K (prior range 2K-5K) no weights; ++JVD persists, renal fxn improving. cxr reviewed: improving vs prior (L effusion resolved), overpenetrated film vs prior confounds--some chf changes persist. he is likely still signif volume overloaded; he may have JVD even when at target wt due to severe TR and RV dysfunction, although i do not think he is at target wt based on cxr appearance and JVD to jaw; will increase lasix (to 80 iv TID), follow UOP (lakhwinder). if does not diurese well or becomes hypotensive, will need to resume milrinone with pressors (dopa if ventric ectopy can tolerate ; otherwise vasopressin) - 08/21: still with ++ abdominal distension/ascites, early satiety, dependent edema and congestive changes on cxr. diurested will on tid lasix, but sodium bumped. Will resume milrinone to augment RV contractility and decrease pulmonary pressures. Repeat bmp this afternoon to make sure sodium heading in right direction. con't strict I/O q shift. standing weights. telemetry monitoring. baseline sys bp's typically 100's, monitor for hypotension on milrinone. can switch to dobutmine if vasodilatory effect of milrinone is too much. -08/22: cr stable, wt down, symptomatically improved. na and bicarb rising, may be reaching a dry wt. will cont same iv lasix/milrinone today and monitor chem7 tomorrow to see if need to adjust diuretics further. -08/23-5: wt continues to decrease, na better as well. cr stable. Will cont same milrinone/lasix until wt plateaus or signs of getting dry -08/25: no further weight decline (134 lbs), office wts 148-157 over past 3 mo; BP trend down (70s-90s overnight); ongoing massive EJ distension, with rales and wheezing, rpt cxr today stable vs prior (overall partially improved since admit, persistent L effusion and mild pulm edema) -suspect he remains volume up--started vasopressin low dose (0.03 u/min-i.e. 0.2 u/hr) for bp support, continue dlasix 80 iv tid -08/26: lakhwinder was out yest but pt urinated voluminously to lasix, wet the bed ( per RN)--keane back in with 1200cc UOP so far today since midnight; BP overall slightly improved (mostly 100-110s systolic) -same lasix 80 iv tid, give dose of metolazone 2.5mg x1 today -suspect severe TR will leave him with residual very high JVD and right sided CHF tendencies, but would like to see lungs clear radiographically and sob/ wheezing improve -was not on bb, aceI at home due to prior side effects of hypotension, dizziness -office BiV followup/optimization with dr aparicio ascites, imaging evidence of cirrhosis: -? cardiac cirrhosis from right sided chf/severe TR -chf optimization as doing -defer ? further GI/liver eval to pmd/outpt cardio CAD s/p h/o CABG 2006 - holding ASA, plavix. If anti-platelets can be resumed, would consider resuming ASA alone. - no angina or signs acs h/o CVA: -was on ASA, plavix --> on hold as above. V Tach: - nsvt seen on prior ICD checks and on tele here as well. - electrolyte repletion prn as doing (aggressive targets) - con't telemetry monitoring. - will cont deferring BB today while reassess BP with aggressive diuresis PAT/PSVT - brief episodes on tele here a.e. COPD: -On steroids, pulm following est crit care time 38min
[2016-08-26] MEDS: predniSONE 20 MG TABLET (UD) PO SCH (09:32)
[2016-08-26] MEDS: FERROUS SO4 325 MG TABLET (FP) PO SCH (09:32)
[2016-08-26] MEDS: POTASSIUM CHLORIDE TABS 20 MEQ TABLET.ER (FP) PO SCH ×2 (09:33→21:31)
[2016-08-26] MEDS: ASCORBIC ACID 500 MG TABLET (FP) PO SCH (09:33)
[2016-08-26] MEDS: RANITIDINE HCL 150 MG TABLET (FP) PO SCH ×2 (09:33→21:31)
[2016-08-26] MEDS: POLYETHYLENE GLYCOL 3350 119 GM BTL PO SCH (09:34)
--- NOTE | 2016-08-26 10:52 | PN ---
Progress Note (short form) - Note Progress Note: Pt seen/ examined in icu looks and feels comfortable. all f/u noted . denies cp. Vital Signs Temp 99.0 F 08/26/16 06:00 Pulse 87 08/26/16 10:11 Resp 20 08/26/16 08:00 BP 105/72 08/26/16 08:00 Pulse Ox 96 08/26/16 10:11 Intake & Output 08/25/16 08/25/16 08/26/16 11:59 23:59 11:59 Intake Total 323 177 Output Total 400 700 Balance -77 -523 Weight 134 lb 6.4 oz 136 lb 10.986 oz 133 lb Intake: IV 123 77 Milrinone 20Mg/100Ml Ivpb 77 49 - 100 ml @ 0.375 MCG/KG/ MIN 6.992 mls/hr IVPB TITR [facility] Rx#:[id number] Pitressin - 50 Units In 46 28 Normal Saline - 97.5 ml @ 2 UNITS/HR 4 mls/hr IVPB ASDIR [facility] Rx#: [id number] Oral 200 100 Output: Urine 400 700 Villaseñor 400 700 Other: Voiding Method Incontinent Indwelling Catheter # Unmeasured Voids Void 1 Villaseñor 2 Weight Measurement Method Standing Scale Built in [facility] Active Medications Acetaminophen (Tylenol -) 650 mg PO Q6H PRN PRN Reason: FEVER OR PAIN Last Admin: 08/22/16 00:23 Dose: 650 mg Ascorbic Acid (Vitamin C -) 500 mg PO DAILY [facility] Last Admin: 08/26/16 09:33 Dose: 500 mg Atorvastatin Calcium (Lipitor -) 10 mg PO HS [facility] Last Admin: 08/25/16 21:24 Dose: 10 mg Chlorhexidine Gluconate (Hibiclens For Decolonization -) 1 applic TP HS [facility] Last Admin: 08/25/16 21:24 Dose: 1 applic Ferrous Sulfate (Feosol -) 325 mg PO DAILY [facility] Last Admin: 08/26/16 09:32 Dose: 325 mg Furosemide (Lasix Injection -) 80 mg IVPUSH 0600,1400,2000 [facility] Last Admin: 08/26/16 05:54 Dose: 80 mg Milrinone Lactate/Dextrose (Milrinone 20mg/100ml Ivpb -) 100 mls @ 6.992 mls/ hr IVPB TITR [facility] PRN Reason: 0.375 MCG/KG/MIN Last Admin: 08/25/16 17:02 Dose: 6.992 mls/hr Vasopressin 50 units/ Sodium (Chloride) 100 mls @ 4 mls/hr IVPB ASDIR [facility] PRN Reason: 2 UNITS/HR Last Admin: 08/25/16 13:30 Dose: 4 mls/hr Metolazone (Zaroxolyn -) 2.5 mg PO ONCE ONE Stop: 08/26/16 13:31 Polyethylene Glycol (Miralax (For Daily Use) -) 17 gm PO DAILY [facility] Last Admin: 08/26/16 09:34 Dose: 17 gm Potassium Chloride (K-Dur -) 40 meq PO BID [facility] Last Admin: 08/26/16 09:33 Dose: 40 meq Prednisone (Deltasone -) 20 mg PO DAILY [facility] Last Admin: 08/26/16 09:32 Dose: 20 mg Ranitidine HCl (Zantac -) 150 mg PO BID [facility] Last Admin: 08/26/16 09:33 Dose: 150 mg CBC, BMP 08/24/16 05:35 08/25/16 05:35 Physical Exam Constitutional: Yes: No distress-- comfortable Cardiovascular: Yes: Regular Rate and Rhythm, Murmur Respiratory: Yes: Scattered rhonchi Gastrointestinal: Yes: soft / slightly distended/ non tender Edema: No Assessment and Plan overall condition same continue present care close monitoring h/h stable Monitor cbc/ electrolytes asa/ plavix on hold consider restarting asa tomorrow if h/h stable. Condition remains very gaurded Discussed with nursing staff CC time 30 min will follow Problem List - Problems (1) Anemia Code(s): D64.9 - ANEMIA, UNSPECIFIED Qualifiers: Anemia type: unspecified type Qualified Code(s): D64.9 - Anemia, unspecified (2) CHF (congestive heart failure) Code(s): I50.9 - HEART FAILURE, UNSPECIFIED Qualifiers: Congestive heart failure type: combined Congestive heart failure chronicity: acute on chronic Qualified Code(s): I50.43 - Acute on chronic combined systolic (congestive) and diastolic (congestive) heart failure (3) CKD (chronic kidney disease) Code(s): N18.9 - CHRONIC KIDNEY DISEASE, UNSPECIFIED Qualifiers: Chronic kidney disease stage: unspecified stage Qualified Code(s): N18.9 - Chronic kidney disease, unspecified (4) COPD (chronic obstructive pulmonary disease) Code(s): J44.9 - CHRONIC OBSTRUCTIVE PULMONARY DISEASE, UNSPECIFIED (5) Hypotension Code(s): I95.9 - HYPOTENSION, UNSPECIFIED (6) Lactic acid blood increased Code(s): R79.89 - OTHER SPECIFIED ABNORMAL FINDINGS OF BLOOD CHEMISTRY (7) Pacemaker Code(s): Z95.0 - PRESENCE OF CARDIAC PACEMAKER
--- NOTE | 2016-08-26 12:07 | PN ---
Progress Note (short form) - Note Progress Note: Seen and examined in the ICU cont aggressive diuresis, breathing better Current Medications Acetaminophen (Tylenol -) 650 mg PO Q6H PRN PRN Reason: FEVER OR PAIN Last Admin: 08/22/16 00:23 Dose: 650 mg Ascorbic Acid (Vitamin C -) 500 mg PO DAILY [facility] Last Admin: 08/26/16 09:33 Dose: 500 mg Atorvastatin Calcium (Lipitor -) 10 mg PO HS [facility] Last Admin: 08/25/16 21:24 Dose: 10 mg Chlorhexidine Gluconate (Hibiclens For Decolonization -) 1 applic TP HS [facility] Last Admin: 08/25/16 21:24 Dose: 1 applic Ferrous Sulfate (Feosol -) 325 mg PO DAILY [facility] Last Admin: 08/26/16 09:32 Dose: 325 mg Furosemide (Lasix Injection -) 80 mg IVPUSH 0600,1400,2000 [facility] Last Admin: 08/26/16 05:54 Dose: 80 mg Milrinone Lactate/Dextrose (Milrinone 20mg/100ml Ivpb -) 100 mls @ 6.992 mls/ hr IVPB TITR [facility] PRN Reason: 0.375 MCG/KG/MIN Last Admin: 08/25/16 17:02 Dose: 6.992 mls/hr Vasopressin 50 units/ Sodium (Chloride) 100 mls @ 4 mls/hr IVPB ASDIR [facility] PRN Reason: 2 UNITS/HR Last Admin: 08/25/16 13:30 Dose: 4 mls/hr Metolazone (Zaroxolyn -) 2.5 mg PO ONCE ONE Stop: 08/26/16 13:31 Polyethylene Glycol (Miralax (For Daily Use) -) 17 gm PO DAILY [facility] Last Admin: 08/26/16 09:34 Dose: 17 gm Potassium Chloride (K-Dur -) 40 meq PO BID [facility] Last Admin: 08/26/16 09:33 Dose: 40 meq Prednisone (Deltasone -) 20 mg PO DAILY [facility] Last Admin: 08/26/16 09:32 Dose: 20 mg Ranitidine HCl (Zantac -) 150 mg PO BID [facility] Last Admin: 08/26/16 09:33 Dose: 150 mg Vital Signs Period Temp Pulse Resp BP Sys/Vega Pulse Ox Last 24 Hr 97.9 F-99.2 F 78-108 18-20 93-137/56-85 94-96 Intake & Output 08/23/16 08/24/16 08/25/16 08/26/16 23:59 23:59 23:59 23:59 Intake Total 168 444 323 177 Output Total 2706 400 700 Balance -2532 444 -20 -523 Weight 61.326 kg 60.328 kg 62 kg 60.328 kg CBCD WBC 19.9 K/mm3 (4.0-10.0) H D 08/24/16 05:35 RBC 4.31 M/mm3 (4.00-5.60) 08/24/16 05:35 Hgb 8.8 GM/dL (11.7-16.9) L 08/24/16 05:35 Hct 31.8 % (35.4-49) L 08/24/16 05:35 MCV 73.8 fl (80-96) L 08/24/16 05:35 MCHC 27.8 g/dl (32.0-35.9) L 08/24/16 05:35 RDW 28.8 % (11.9-15.9) H 08/24/16 05:35 Plt Count 194 K/MM3 (134-434) 08/24/16 05:35 MPV 8.8 fl (7.5-11.1) 08/24/16 05:35 CMP Sodium 147 mmol/L (136-145) H 08/25/16 05:35 Potassium 3.9 mmol/L (3.5-5.1) 08/25/16 05:35 Chloride 104 mmol/L (98-107) 08/25/16 05:35 Carbon Dioxide 36 mmol/L (21-32) H 08/25/16 05:35 Anion Gap 7 (8-16) L 08/25/16 05:35 BUN 42 mg/dL (7-18) H 08/25/16 05:35 Creatinine 1.3 mg/dL (0.7-1.3) 08/25/16 05:35 Creat Clearance w eGFR 53.67 (>60) 08/25/16 05:35 Random Glucose 104 mg/dL (74-106) D 08/25/16 05:35 Calcium 7.9 mg/dL (8.5-10.1) L 08/25/16 05:35 Total Bilirubin 1.7 mg/dL (0.2-1.0) H 08/25/16 05:35 AST 19 U/L (15-37) 08/25/16 05:35 ALT 17 U/L (12-78) D 08/25/16 05:35 Alkaline Phosphatase 130 U/L (45-117) H 08/25/16 05:35 Total Protein 5.7 g/dl (6.4-8.2) L 08/25/16 05:35 Albumin 2.2 g/dl (3.4-5.0) L 08/25/16 05:35 CARDIAC ENZYMES Creatine Kinase 67 IU/L (39-308) 08/13/16 15:45 Troponin I 0.06 ng/ml (0.00-0.05) H D 08/13/16 15:45 A/P Acute COPD Exacerbation Acute on Chronic Severe LV Systolic Dysfunction Cirrhosis Acute on Chronic Renal Failure CAD s/p CABG - continue inotropic assisted diuresis - monitor urine output, creatinine - monitor H/H - taper off steroids - inhaled bronchodilators - replete lytes - consider LVP for comfort - DVT/GI prophylaxis - telemetry monitoring Boerem ACNP Pulm/CCM CCT: 35m Problem List - Problems (1) Anemia Code(s): D64.9 - ANEMIA, UNSPECIFIED Qualifiers: Anemia type: unspecified type Qualified Code(s): D64.9 - Anemia, unspecified (2) CKD (chronic kidney disease) Code(s): N18.9 - CHRONIC KIDNEY DISEASE, UNSPECIFIED Qualifiers: Chronic kidney disease stage: unspecified stage Qualified Code(s): N18.9 - Chronic kidney disease, unspecified (3) Lactic acid blood increased Code(s): R79.89 - OTHER SPECIFIED ABNORMAL FINDINGS OF BLOOD CHEMISTRY (4) CHF exacerbation Code(s): I50.9 - HEART FAILURE, UNSPECIFIED (5) COPD (chronic obstructive pulmonary disease) Code(s): J44.9 - CHRONIC OBSTRUCTIVE PULMONARY DISEASE, UNSPECIFIED (6) HTN (hypertension) Code(s): I10 - ESSENTIAL (PRIMARY) HYPERTENSION
[2016-08-26] MEDS ORDERED: METOLAZONE 2.5 MG TABLET (FP) PO ONE (13:30)
[2016-08-26] MEDS ORDERED: VASOPRESSIN 20 UNITS/ML VIAL IV ONE (13:34)
[2016-08-26] MEDS: VASOPRESSIN 50 UNITS in SODIUM CHLORIDE 97.5 ML IVPB SCH (13:41)
[2016-08-26] MEDS: ATORVASTATIN CA 10 MG TABLET (FP) PO SCH (21:31)
[2016-08-26] MEDS: CHLORHEXIDINE GLUCONATE 4% CLEANSER FOR DECOLONIZATION TP SCH (21:31)
[2016-08-26] MEDS: MILRINONE 20MG/100ML IVPB - 100 ML IVPB SCH (21:31)
[2016-08-27] MEDS: FUROSEMIDE 40 MG/4 ML INJECTABLE VIAL IVPUSH SCH ×3 (06:04→21:45)
[2016-08-27 06:58] LABS: MCH 21.3 pg (25.7-33.7); MCHC 29.3 g/dl (32.0-35.9); MEAN CELL VOLUME 72.9 fl (80-96); MEAN PLT VOLUME 8.7 fl (7.5-11.1); PLATELET COUNT 138 K/MM3 (134-434); RDW 29.7 % (11.9-15.9); WHITE BLOOD COUNT 21.8 K/mm3 (4.0-10.0)
[2016-08-27 07:18] LABS: COCKROFT - GAULT 37.03; CREATININE 1.4 mg/dL (0.7-1.3); MAGNESIUM 2.5 mg/dL (1.8-2.4)
[2016-08-27] MEDS ORDERED: VASOPRESSIN 20 UNITS/ML VIAL IV ONE ×2 (08:42→20:55)
[2016-08-27] MEDS ORDERED: PT OWN MED DRAWER 7, Y5N ONE (08:42)
[2016-08-27] MEDS ORDERED: SODIUM CHLORIDE 100 ML IVPB ONE (08:42)
[2016-08-27] MEDS: predniSONE 20 MG TABLET (UD) PO SCH (09:01)
[2016-08-27] MEDS: FERROUS SO4 325 MG TABLET (FP) PO SCH (09:01)
[2016-08-27] MEDS: POTASSIUM CHLORIDE TABS 20 MEQ TABLET.ER (FP) PO SCH ×2 (09:01→21:45)
--- NOTE | 2016-08-27 09:01 | PN ---
Physical Exam: SUBJECTIVE: Patient seen and examined. c/o feeling hungry, suprapubic pain, mild headache and intermittent dry cough. says he feels better over all. denies chest pain, palpitations, sob, fever. OBJECTIVE: Vital Signs Period Temp Pulse Resp BP Sys/Vega Pulse Ox Last 24 Hr 97.5 F-98.8 F 80-105 12-26 86-198/55-93 96-99 GENERAL: thin, elderly man. the patient is awake, alert, and oriented to person , birthday, not place or date. in no acute distress. HEAD: Normal with no signs of trauma. EYES: pupils responsive to light but constricted secondary to cataract surgery, extraocular movements intact, sclera anicteric, conjunctiva clear. No ptosis. ENT: nares patent with nasal cannula in place, oropharynx clear without exudates /erythema, edentulism, moist mucous membranes. NECK: Trachea midline, full range of motion, supple. JVD left neck. CHEST: well-healed midline sternal scar LUNGS: no accessory muscle use, no wheezes, no crackles, diffuse expiratory rales. HEART: systolic murmur in apex. s1, s2. ABDOMEN: Soft, nontender, nondistended, normoactive bowel sounds, no guarding. no suprapubic fullness/no ttp. EXTREMITIES: 2+ pulses, warm, well-perfused, no edema. calf tenderness in b/l LE. NEUROLOGICAL: Cranial nerves II through XII grossly intact. Normal speech, facial symmetry. 3/5 strength at b/l hand gun fitter. 4/5 in b/l lower extremities on hip extension. SKIN: Warm, dry, normal turgor, no rashes or lesions noted Laboratory Results - last 24 hr 08/26/16 08/27/16 08/27/16 10:00 05:30 05:30 WBC 21.8 H RBC 3.96 L Hgb 8.4 L Hct 28.8 L MCV 72.9 L MCHC 29.3 L RDW 29.7 H Plt Count 138 D MPV 8.7 Sodium 145 Potassium 4.0 Chloride 101 Carbon Dioxide 36 H Anion Gap 8 BUN 56 H D Creatinine 1.4 H Random Glucose 155 H D Calcium 8.0 L Magnesium 2.6 H 2.5 H Active Medications Acetaminophen (Tylenol -) 650 mg PO Q6H PRN PRN Reason: FEVER OR PAIN Last Admin: 08/27/16 09:02 Dose: 650 mg Ascorbic Acid (Vitamin C -) 500 mg PO DAILY [facility] Last Admin: 08/27/16 09:02 Dose: 500 mg Atorvastatin Calcium (Lipitor -) 10 mg PO HS [facility] Last Admin: 08/26/16 21:31 Dose: 10 mg Chlorhexidine Gluconate (Hibiclens For Decolonization -) 1 applic TP HS [facility] Last Admin: 08/26/16 21:31 Dose: 1 applic Ferrous Sulfate (Feosol -) 325 mg PO DAILY [facility] Last Admin: 08/27/16 09:01 Dose: 325 mg Furosemide (Lasix Injection -) 80 mg IVPUSH 0600,1400,2000 [facility] Last Admin: 08/27/16 06:04 Dose: 80 mg Milrinone Lactate/Dextrose (Milrinone 20mg/100ml Ivpb -) 100 mls @ 6.992 mls/ hr IVPB [facility] PRN Reason: 0.375 MCG/KG/MIN Last Admin: 08/26/16 21:31 Dose: 6.992 mls/hr Vasopressin 50 units/ Sodium (Chloride) 100 mls @ 4 mls/hr IVPB [facility] PRN Reason: 2 UNITS/HR Last Admin: 08/26/16 13:41 Dose: 4 mls/hr Polyethylene Glycol (Miralax (For Daily Use) -) 17 gm PO DAILY [facility] Last Admin: 08/27/16 09:02 Dose: Not Given Potassium Chloride (K-Dur -) 40 meq PO BID [facility] Last Admin: 08/27/16 09:01 Dose: 40 meq Prednisone (Deltasone -) 20 mg PO DAILY [facility] Last Admin: 08/27/16 09:01 Dose: 20 mg Ranitidine HCl (Zantac -) 150 mg PO BID [facility] Last Admin: 08/27/16 09:02 Dose: 150 mg Imaging Echo: 07/2016 ASSESSMENT/PLAN: 76 yr old man with COPD, CHF, CKD, CAD s/p CABG, s/p biventricular pacemaker, CVA with residual left sided weakness, HTN, pulmonary HTN, HLD, current smoker presented to SOB/cough admitted to ICU for symptomatic anemia and hypotension. - s/p 2units prbc's #Cardiovascular - acute exacerbation of systolic CHF -- milrinone .375mcg/kg/min, vasopressin 50units 4ml/hr and lasix 80mg ivpb TID , metolazone 2.5mg po 1x dose today -- hold BB -- patient has required pressure support, with improvement of diuresis, net negative I&O -- keane in place -- daily weights -- daily CXY to evaluate congestion - CAD -- as per cardio; holding ASA and plavix due to anemia, would consider restarting ASA Pulmonary - acute respiratory distress resolved, etiology likely multifactorial from decompensated CHF vs COPD - Prednisone 20mg po daily -- day 6 - wheezing improved - nasal cannula 4lpm, maintain sat >90% Neurologic calm and cooperative, awake and alert orientation has been labile, continue to orient daily Gastrointestinal ascitis and cirrhosis likely noted on abdominal u/s, from pulmonary HTN/CHF miralax 17gm po for constipation ranitidine 150 mg po bid pt is high risk for surgical procedures, will require medical optimization, GI intervention for further evaluation of anemia currently deferred. anemia stable , no overt signs of bleeding, can follow up as outpatient. Renal sodium trending up, Cr trending up, likely due to aggressive diuresis aggressive electrolyte repletion, closely monitor I&O, BUN/Cr given aggressive diuresis Hematologic CLAIR s/p 2 units prbc's, H/H currently stable ferrous sulfate 325 mg po daily + Vitamin C leukocytosis likely from prolonged steroid use Diet: low fat Na+ controlled DVT; b/l SCD's Dispo: pt requiring pressure support, continue ICU level of care Visit type - Emergency Visit Emergency Visit: No - New Patient This patient is new to me today: Yes Date on this admission: 08/27/16 - Critical Care Critical Care patient: Yes Total Critical Care Time (in minutes): 38 Critical Care Statement: The care of this patient involved high complexity decision making to prevent further life threatening deterioration of the patient 's condition and/or to evalute & treat vital organ system(s) failure or risk of failure.
[2016-08-27] MEDS: RANITIDINE HCL 150 MG TABLET (FP) PO SCH ×2 (09:02→21:46)
[2016-08-27] MEDS: POLYETHYLENE GLYCOL 3350 119 GM BTL PO SCH (09:02)
[2016-08-27] MEDS: ASCORBIC ACID 500 MG TABLET (FP) PO SCH (09:02)
[2016-08-27] MEDS: ACETAMINOPHEN 325 MG TABLET (FP) PO PRN (09:02)
--- NOTE | 2016-08-27 09:19 | PN ---
Progress Note (short form) - Note Progress Note: SUBJECTIVE: Patient seen and examined in the ICU. Condition remains the same. All follow ups noted. Daughter at bedside. OBJECTIVE: Vital Signs 08/27/16 08/27/16 08/27/16 02:00 04:00 06:00 Temperature 97.5 F L 97.6 F Pulse Rate 97 H 86 91 H Respiratory 19 17 18 Rate Blood Pressure 101/68 86/64 96/68 O2 Sat by Pulse Oximetry (%) 08/27/16 08/27/16 08:00 09:00 Temperature Pulse Rate 88 94 H Respiratory 18 22 Rate Blood Pressure 108/62 100/60 O2 Sat by Pulse 99 Oximetry (%) Intake & Output 08/26/16 08/27/16 08/27/16 23:59 07:59 15:59 Intake Total 432 232 Output Total 1100 1100 Balance -668 -868 Weight 58.332 kg Intake: IV 132 132 Milrinone 20Mg/100Ml Ivpb 84 84 - 100 ml @ 0.375 MCG/KG/ MIN 6.992 mls/hr IVPB T[facility]R [facility] Rx#:[id number] Pitressin - 50 Units In 48 48 Normal Saline - 97.5 ml @ 2 UNITS/HR 4 mls/hr IVPB ASDIR [facility] Rx#: [id number] Oral 300 100 Output: Urine 1100 1100 Villaseñor 1100 1100 Other: Voiding Method Indwelling Catheter Indwelling Catheter Bowel Movement Yes # Bowel Movements 3 Weight Measurement Method Built in [facility] Active Medications Acetaminophen (Tylenol -) 650 mg PO Q6H PRN PRN Reason: FEVER OR PAIN Last Admin: 08/27/16 09:02 Dose: 650 mg Ascorbic Acid (Vitamin C -) 500 mg PO DAILY [facility] Last Admin: 08/27/16 09:02 Dose: 500 mg Atorvastatin Calcium (Lipitor -) 10 mg PO HS [facility] Last Admin: 08/26/16 21:31 Dose: 10 mg Chlorhexidine Gluconate (Hibiclens For Decolonization -) 1 applic TP [facility] Last Admin: 08/26/16 21:31 Dose: 1 applic Ferrous Sulfate (Feosol -) 325 mg PO DAILY [facility] Last Admin: 08/27/16 09:01 Dose: 325 mg Furosemide (Lasix Injection -) 80 mg IVPUSH 0600,1400,2000 [facility] Last Admin: 08/27/16 06:04 Dose: 80 mg Milrinone Lactate/Dextrose (Milrinone 20mg/100ml Ivpb -) 100 mls @ 6.992 mls/ hr IVPB [facility] [place] PRN Reason: 0.375 MCG/KG/MIN Last Admin: 08/26/16 21:31 Dose: 6.992 mls/hr Vasopressin 50 units/ Sodium (Chloride) 100 mls @ 4 mls/hr IVPB [facility] PRN Reason: 2 UNITS/HR Last Admin: 08/26/16 13:41 Dose: 4 mls/hr Metolazone (Zaroxolyn -) 2.5 mg PO ONCE ONE Stop: 08/27/16 13:31 Polyethylene Glycol (Miralax (For Daily Use) -) 17 gm PO DAILY [facility] Last Admin: 08/27/16 09:02 Dose: Not Given Potassium Chloride (K-Dur -) 40 meq PO BID [facility] Last Admin: 08/27/16 09:01 Dose: 40 meq Prednisone (Deltasone -) 20 mg PO DAILY [facility] Last Admin: 08/27/16 09:01 Dose: 20 mg Ranitidine HCl (Zantac -) 150 mg PO BID [facility] Last Admin: 08/27/16 09:02 Dose: 150 mg CBC, BMP 08/27/16 05:30 08/27/16 05:30 Laboratory Results - last 24 hr 08/26/16 08/27/16 08/27/16 10:00 05:30 05:30 WBC 21.8 H RBC 3.96 L Hgb 8.4 L Hct 28.8 L MCV 72.9 L MCHC 29.3 L RDW 29.7 H Plt Count 138 D MPV 8.7 Sodium 145 Potassium 4.0 Chloride 101 Carbon Dioxide 36 H Anion Gap 8 BUN 56 H D Creatinine 1.4 H Random Glucose 155 H D Calcium 8.0 L Magnesium 2.6 H 2.5 H PHYSICAL EXAMINATION: Constitutional: Yes: No distress. Comfortable Cardiovascular: Yes: Regular Rate and Rhythm, Murmur Respiratory: Yes: Scattered rhonchi Gastrointestinal: Yes: soft / slightly distended/ non tender Edema: No ASSESSMENT & PLAN: - Overall condition same - Continue present care - Close monitoring - H/H stable - Monitor cbc/ electrolytes - Aspirin/ Plavix on hold - Condition remains very guarded. - Discussed with nursing staff. - Discussed with daughter in detail. - CC time 30 min - Will follow Documentation prepared by Darlene Manuel, acting as a medical pathology teacher for Purnima Driscoll MD. <Darlene Manuel - Last Filed: 08/27/16 11:41> Problem List - Problems (1) Anemia Code(s): D64.9 - ANEMIA, UNSPECIFIED (2) CHF (congestive heart failure) Code(s): I50.9 - HEART FAILURE, UNSPECIFIED (3) CKD (chronic kidney disease) Code(s): N18.9 - CHRONIC KIDNEY DISEASE, UNSPECIFIED (4) COPD (chronic obstructive pulmonary disease) Code(s): J44.9 - CHRONIC OBSTRUCTIVE PULMONARY DISEASE, UNSPECIFIED (5) Hypotension Code(s): I95.9 - HYPOTENSION, UNSPECIFIED (6) Lactic acid blood increased Code(s): R79.89 - OTHER SPECIFIED ABNORMAL FINDINGS OF BLOOD CHEMISTRY (7) Pacemaker Code(s): Z95.0 - PRESENCE OF CARDIAC PACEMAKER <Purnima Driscoll - Last Filed: 08/27/16 09:19>
--- NOTE | 2016-08-27 09:20 | PN ---
Progress Note, Physician Chief Complaint: chf History of Present Illness: he reports sob is much better no cp no palpit no edema - Current Medication List Current Medications: Active Medications Acetaminophen (Tylenol -) 650 mg PO Q6H PRN PRN Reason: FEVER OR PAIN Last Admin: 08/27/16 09:02 Dose: 650 mg Ascorbic Acid (Vitamin C -) 500 mg PO DAILY [facility] Last Admin: 08/27/16 09:02 Dose: 500 mg Atorvastatin Calcium (Lipitor -) 10 mg PO HS [facility] Last Admin: 08/26/16 21:31 Dose: 10 mg Chlorhexidine Gluconate (Hibiclens For Decolonization -) 1 applic TP HS [facility] Last Admin: 08/26/16 21:31 Dose: 1 applic Ferrous Sulfate (Feosol -) 325 mg PO DAILY [facility] Last Admin: 08/27/16 09:01 Dose: 325 mg Furosemide (Lasix Injection -) 80 mg IVPUSH 0600,1400,2000 [facility] Last Admin: 08/27/16 06:04 Dose: 80 mg Milrinone Lactate/Dextrose (Milrinone 20mg/100ml Ivpb -) 100 mls @ 6.992 mls/ hr IVPB T[facility]R [place] PRN Reason: 0.375 MCG/KG/MIN Last Admin: 08/26/16 21:31 Dose: 6.992 mls/hr Vasopressin 50 units/ Sodium (Chloride) 100 mls @ 4 mls/hr IVPB [facility] PRN Reason: 2 UNITS/HR Last Admin: 08/26/16 13:41 Dose: 4 mls/hr Polyethylene Glycol (Miralax (For Daily Use) -) 17 gm PO DAILY [facility] Last Admin: 08/27/16 09:02 Dose: Not Given Potassium Chloride (K-Dur -) 40 meq PO BID [facility] Last Admin: 08/27/16 09:01 Dose: 40 meq Prednisone (Deltasone -) 20 mg PO DAILY [facility] Last Admin: 08/27/16 09:01 Dose: 20 mg Ranitidine HCl (Zantac -) 150 mg PO BID [facility] Last Admin: 08/27/16 09:02 Dose: 150 mg - Objective Vital Signs: Vital Signs Temperature 97.6 F 08/27/16 06:00 Pulse Rate 94 H 08/27/16 09:00 Respiratory Rate 22 08/27/16 09:00 Blood Pressure 100/60 08/27/16 09:00 O2 Sat by Pulse Oximetry (%) 99 08/27/16 08:00 Constitutional: Yes: No Distress, Calm Cardiovascular: Yes: Regular Rate and Rhythm, JVD (12-15cm), Murmur (loud TR murmur btw LLSB/apex), S1, S2, Other (PMI non diplaced). No: Gallop Respiratory: Yes: CTA Bilaterally. No: Accessory Muscle Use, Rales, Wheezes Gastrointestinal: Yes: Normal Bowel Sounds, Soft. No: Tenderness Musculoskeletal: Yes: Other (No kyphosis) Extremities: No: Cold Edema: No Integumentary: No: Jaundice Neurological: Yes: Alert, Oriented (x3) Psychiatric: No: Agitated Labs: CBC, BMP 08/27/16 05:30 08/27/16 05:30 INR, PTT INR 1.66 (0.82-1.09) H 08/14/16 07:55 - ....Imaging EKG: Other (tele: NSR, V-P > V-S; freq PVCs; frequent runs NSVT) Assessment/Plan Abd sono: moderate amount of ascites in upper abdomen. Liver and spleen findings c/w cirrhosis. cath 08/02 all grafts patent (self to lad, svg to lcx, svg to rpda) Echo 07/2016 (this admit): mod lve, sev reduced LV fn (global). mild rve with mild hypo (severe TR, intrinsic RV fn likely more depressed), 1+ connie. 1+ mr, severe tr, mod phtn, pl effusion cxr /: congestive changes remain Assessment/Plan 76 yo recent smoker (quit 6 mo ago) with h/o CAD s/p CABG, ischemic CM with EF 25% s/p BiVICD with secondary severe pulmonary hypertension, prior CVA, HL, copd, CKD, bph, chronic iron deficiency anemia who p/w worsened cough, sob, hypotension and noted to have profound anemia. Pre-operative clearance/anemia. -hgb remains stable since prbcs transfused -RCRI of 3 with decompensated chf and low bp here. Has estimated high risk for jd-operative CV complications. Would optimize cardiac/pulmonary status if safe to delay endoscopy. still with decompensated heart failure at this time. isch CMP (acute systolic CHF exacerbation) - Patient's weight actually stable as outpatient in past month. Possible pulmonary congestion on CXR. ddx infection. trace le edema. After lasix 80 mg IV in ER last night, cr improved, but sodium worsened. Now s/p 2 units of PRBC and lasix 40 mg IV x 1 yesterday 08/14 with improvement in sodium, worsened again overnight. - 08/15: Patient overall comfortable. Unable to accurately assess I/O's, weights --> holding diuresis today so that he will definitively be net positive tomorrow and can reassess hypernatremia tomorrow and hepatic congestion. If worsens then will resume IV lasix. Patient with significant rhonchi and wheezes on exam. Also with moderate ascites on u/s. Frequent nsvt on tele. These findings remain concerning for heart failure exacerbation. - 08/16: significant worsening of abdominal distension and edema without lasix yesterday. Initiating bid diuresis with lasix 80 mg IV BID. BMP this evening prior to second lasix dose to monitor sodium and potassium. Reluctant to add beta alondra while with active wheezes and unclear if he is decompensated. - 08/17: nsvt/ectopy improved with diuresis. Echo shows worsened RV function. Patient likely with acute decompensated HF and superimposed RV HF exacerbation. BUN rising. Will start milrinone to augment RV function and reduce pulmonary pressures. Con't bid lasix. -08/18: cont milrinone and iv lasix, cr stable today. cxr still with chf. -08/19: milrinone stopped yesterday due to hypotension. clinically seems less vol overloaded. cr stable. cont iv lasix. will check cxr tomorrow am to monitor progress. -08/20: bnp 13K here initially, up to 17K (prior range 2K-5K) no weights; ++JVD persists, renal fxn improving. cxr reviewed: improving vs prior, some chf changes persist. he is likely still signif volume overloaded; will increase lasix (to 80 iv TID), follow UOP (lakhwinder). if does not diurese well or becomes hypotensive, will need to resume milrinone with pressors (dopa if ventric ectopy can tolerate; otherwise vasopressin) - 08/21: still with ++ abdominal distension/ascites, early satiety, dependent edema and congestive changes on cxr. diuresed will on tid lasix, but sodium bumped. Will resume milrinone to augment RV contractility and decrease pulmonary pressures. Repeat bmp this afternoon to make sure sodium heading in right direction. con't strict I/O q shift. standing weights. telemetry monitoring. baseline sys bp's typically 100's, monitor for hypotension on milrinone. -08/22: cr stable, wt down, symptomatically improved. na and bicarb rising, may be reaching a dry wt. will cont same iv lasix/milrinone today and monitor chem7 tomorrow to see if need to adjust diuretics further. -08/23-: wt continues to decrease, na better. cr stable. cont same milrinone/ lasix until wt plateaus or signs of getting dry -08/25: no further weight decline (134 lbs), office wts 148-157 over past 3 mo; BP trend down (70s-90s overnight); ongoing massive EJ distension, +rales/ wheezing, rpt cxr not improved signif since admit (persistent L effusion and mild pulm edema) -suspect he remains volume up--started vasopressin low dose (0.03 u/min-i.e. 0.2 u/hr) for bp support, same lasix 80 iv tid -08/26: keane was yest but pt urinated voluminously to lasix (per RN)--keane back in with 1200cc UOP so far today since midnight; BP overall slightly improved ( mostly 100-110s systolic)--same lasix 80 iv tid, give dose of metolazone 2.5mg x1 today -08/27: 2000 cc UOP yesterday; wt trending down (though bedscale wts); CXR has not improved much since here (slight improvement R base); bun/creat trending up slightly -this is the first time in at least 7 days that pt reports sob improving, and there is no wheezing on exam; likewise, his JVD is finally below angle of the jaw; -cxr ? slightly better (overpenetrated film) -continue same milrinone, vasopressing and lasix 80 iv tid with metolazone 2.5 x 1 today, rpt cxr in am -suspect will cut back diuretics and stop pressors/inotropes tomorrow if cxr has improved and he remains without sob/wheezing -(suspect severe TR will leave him with residual very high JVD and right sided CHF tendencies, but would like to see lungs clear radiographically and sob/ wheezing improve) -was not on bb, aceI at home due to prior side effects of hypotension, dizziness -office BiV followup/optimization with dr aparicio (if freq PVCs remain with BiV pacing frequency <90%, consider mexilitene or amio for PVC suppression to enhance [employer] [place] [employer], in d/w EP) ascites, imaging evidence of cirrhosis: -? cardiac cirrhosis from right sided chf/severe TR -chf optimization as doing -defer ? further GI/liver eval to pmd/outpt cardio CAD s/p h/o CABG 2006 - holding ASA, plavix. If anti-platelets can be resumed, would consider resuming ASA alone. - no angina or signs acs h/o CVA: -was on ASA, plavix --> on hold as above. V Tach: - nsvt seen on prior ICD checks and on tele here as well. - electrolyte repletion prn as doing (aggressive targets) - con't telemetry monitoring. - will cont deferring BB today while reassess BP with aggressive diuresis PAT/PSVT - brief episodes on tele here a.e. COPD: -On steroids, pulm following est crit care time 36min
[2016-08-27] MEDS: MILRINONE 20MG/100ML IVPB - 100 ML IVPB SCH (11:59)
[2016-08-27] MEDS: VASOPRESSIN 50 UNITS in SODIUM CHLORIDE 97.5 ML IVPB SCH (12:05)
[2016-08-27 12:27] LABS: PLATELET ESTIMATE ADEQUATE (NORMAL)
[2016-08-27 12:45] LABS: ANISOCYTOSIS 3+; HYPOCHROMIA 3+; MICROCYTOSIS 2+; TARGET CELLS 3+
[2016-08-27] MEDS ORDERED: METOLAZONE 2.5 MG TABLET (FP) PO ONE (13:30)
--- NOTE | 2016-08-27 16:41 | PN ---
Teaching Attending Note Name of Resident: Chong Serna ATTENDING PHYSICIAN STATEMENT I saw and evaluated the patient. I reviewed the resident's note and discussed the case with the resident. I agree with the resident's findings and plan as documented. SUBJECTIVE: Patient seen and examined in the ICU. Reports that his breathing is better. Remains on Milrinone and Vasopressin. Denies CP. Some dry cough. Intake & Output 08/24/16 08/25/16 08/26/16 08/27/16 23:59 23:59 23:59 23:59 Intake Total 444 323 609 632 Output Total 400 1999 190 Balance -1268 Weight 133 lb 136 lb 10.986 oz 133 lb 128 lb 9.6 oz Last Vital Signs Temp Pulse Resp BP Pulse Ox 97.7 F 84 18 104/72 100 08/27/16 10:00 08/27/16 14:00 08/27/16 14:00 08/27/16 14:00 08/27/16 10:22 Active Medications Acetaminophen (Tylenol -) 650 mg PO Q6H PRN PRN Reason: FEVER OR PAIN Last Admin: 08/27/16 09:02 Dose: 650 mg Ascorbic Acid (Vitamin C -) 500 mg PO DAILY [facility] Last Admin: 08/27/16 09:02 Dose: 500 mg Atorvastatin Calcium (Lipitor -) 10 mg PO HS [facility] Last Admin: 08/26/16 21:31 Dose: 10 mg Chlorhexidine Gluconate (Hibiclens For Decolonization -) 1 applic TP HS [facility] Last Admin: 08/26/16 21:31 Dose: 1 applic Ferrous Sulfate (Feosol -) 325 mg PO DAILY [facility] Last Admin: 08/27/16 09:01 Dose: 325 mg Furosemide (Lasix Injection -) 80 mg IVPUSH 0600,1400,2000 [facility] Last Admin: 08/27/16 14:19 Dose: 80 mg Milrinone Lactate/Dextrose (Milrinone 20mg/100ml Ivpb -) 100 mls @ 6.992 mls/ hr IVPB TITR [facility] PRN Reason: 0.375 MCG/KG/MIN Last Admin: 08/27/16 11:59 Dose: 6.992 mls/hr Vasopressin 50 units/ Sodium (Chloride) 100 mls @ 4 mls/hr IVPB [facility] PRN Reason: 2 UNITS/HR Last Admin: 08/27/16 12:05 Dose: 4 mls/hr Polyethylene Glycol (Miralax (For Daily Use) -) 17 gm PO DAILY [facility] Last Admin: 08/27/16 09:02 Dose: Not Given Potassium Chloride (K-Dur -) 40 meq PO BID [facility] Last Admin: 08/27/16 09:01 Dose: 40 meq Prednisone (Deltasone -) 20 mg PO DAILY [facility] Last Admin: 08/27/16 09:01 Dose: 20 mg Ranitidine HCl (Zantac -) 150 mg PO BID [facility] Last Admin: 08/27/16 09:02 Dose: 150 mg Gen: Awake and alert Heart: RRR Lung: (+) bibasilar rales, No wheezes Abd: soft, nontender Ext: Less edema Laboratory Results - last 24 hr 08/27/16 08/27/16 05:30 05:30 WBC 21.8 H RBC 3.96 L Hgb 8.4 L Hct 28.8 L MCV 72.9 L MCHC 29.3 L RDW 29.7 H Plt Count 138 D MPV 8.7 Neutrophils % 98.0 H Lymphocytes % 2.0 L D Differential Comment Manual diff done Platelet Estimate Adequate Hypochromic-Microcytic 3+ Anisocytosis 3+ Microcytosis 2+ Macrocytosis Few Target Cells 3+ Sodium 145 Potassium 4.0 Chloride 101 Carbon Dioxide 36 H Anion Gap 8 BUN 56 H D Creatinine 1.4 H Random Glucose 155 H D Calcium 8.0 L Magnesium 2.5 H Problem List - Problems (1) Anemia Code(s): D64.9 - ANEMIA, UNSPECIFIED Qualifiers: Anemia type: unspecified type Qualified Code(s): D64.9 - Anemia, unspecified (2) CKD (chronic kidney disease) Code(s): N18.9 - CHRONIC KIDNEY DISEASE, UNSPECIFIED Qualifiers: Chronic kidney disease stage: unspecified stage Qualified Code(s): N18.9 - Chronic kidney disease, unspecified (3) Lactic acid blood increased Code(s): R79.89 - OTHER SPECIFIED ABNORMAL FINDINGS OF BLOOD CHEMISTRY (4) CHF exacerbation Code(s): I50.9 - HEART FAILURE, UNSPECIFIED (5) COPD (chronic obstructive pulmonary disease) Code(s): J44.9 - CHRONIC OBSTRUCTIVE PULMONARY DISEASE, UNSPECIFIED (6) HTN (hypertension) Code(s): I10 - ESSENTIAL (PRIMARY) HYPERTENSION A/P Resolved Acute COPD Exacerbation Acute on Chronic Severe LV Systolic Dysfunction Cirrhosis Acute on Chronic Renal Failure CAD S/P CABG - D/W cardiology : Will continue Milrinone and Vasopressin - monitor urine output, creatinine - monitor H/H - taper off Prednisone - inhaled bronchodilators - replete lytes - DVT/GI prophylaxis - telemetry monitoring - Lasix Dr Stuart Critical care time spent reviewing chart, evaluating patient and formulating plan 35 min
[2016-08-27] MEDS: CHLORHEXIDINE GLUCONATE 4% CLEANSER FOR DECOLONIZATION TP SCH (21:45)
[2016-08-27] MEDS: ATORVASTATIN CA 10 MG TABLET (FP) PO SCH (21:46)
[2016-08-28] MEDS ORDERED: ALBUTEROL SO4 2.5/IPRATROPIUM 0.5 INH SOL 3 ML VIAL.NEB. NEB PRN (02:00)
[2016-08-28 06:34] LABS: CALCIUM 8.4 mg/dL (8.5-10.1); CREATININE 1.4 mg/dL (0.7-1.3)
[2016-08-28] MEDS: FUROSEMIDE 40 MG/4 ML INJECTABLE VIAL IVPUSH SCH ×2 (07:18→13:32)
--- NOTE | 2016-08-28 09:00 | PN ---
Physical Exam: SUBJECTIVE: Patient seen and examined resting comfortably in bed. Says he is in [facility] in a [facility]. OBJECTIVE: Vital Signs Period Temp Pulse Resp BP Sys/Vega Pulse Ox Last 24 Hr 97.4 F-97.7 F 75-89 16-22 95-113/52-78 100-100 GENERAL: thin, elderly man. the patient is awake, alert, and oriented to person , birthday, not place or date or president. in no acute distress. EYES: extraocular movements intact, sclera anicteric, conjunctiva clear. No ptosis. ENT: nares patent with nasal cannula in place, oropharynx clear without exudates /erythema, edentulism, dry mucous membranes. NECK: Trachea midline supple. JVD left neck. CHEST: well-healed midline sternal scar LUNGS: no accessory muscle use, no wheezes, no crackles, diffuse expiratory rales. HEART: systolic murmur in apex. s1, s2. ABDOMEN: Soft, nontender, mildly distended, normoactive bowel sounds, no guarding. no suprapubic fullness/no ttp. EXTREMITIES: 2+ pulses, warm, well-perfused, no edema. no calf tenderness NEUROLOGICAL: Normal speech, facial symmetry. Laboratory Results - last 24 hr 08/27/16 08/28/16 05:30 05:30 Neutrophils % 98.0 H Lymphocytes % 2.0 L D Differential Comment Manual diff done Platelet Estimate Adequate Hypochromic-Microcytic 3+ Anisocytosis 3+ Microcytosis 2+ Macrocytosis Few Target Cells 3+ Sodium 148 H Potassium 3.8 Chloride 98 Carbon Dioxide 38 H Anion Gap 12 BUN 58 H Creatinine 1.4 H Random Glucose 165 H Calcium 8.4 L Active Medications Generic Name Dose Route Start Last Admin Trade Name Freq PRN Reason Stop Dose Admin Acetaminophen 650 mg 08/20/16 10:41 08/27/16 09:02 Tylenol - PO 650 mg Q6H PRN Administration FEVER OR PAIN Albuterol/Ipratropium 1 amp 08/28/16 02:00 08/28/16 02:15 Duoneb - NEB 1 amp Q4H PRN Administration SHORTNESS OF BREATH Ascorbic Acid 500 mg 08/21/16 10:00 08/27/16 09:02 Vitamin C - PO 500 mg DAILY [facility] Administration Atorvastatin Calcium 10 mg 08/20/16 22:00 08/27/16 21:46 Lipitor - PO 10 mg HS [facility] Administration Chlorhexidine Gluconate 1 applic 08/20/16 22:00 08/27/16 21:45 Hibiclens For Decolonization - TP 1 applic HS [facility] Administration Ferrous Sulfate 325 mg 08/21/16 10:00 08/27/16 09:01 Feosol - PO 325 mg DAILY [facility] Administration Furosemide 80 mg 08/20/16 14:00 08/28/16 07:18 Lasix Injection - IVPUSH 80 mg 0600,1400,2000 [facility] Administration Milrinone Lactate/Dextrose 100 mls @ 6.992 mls/hr 08/21/16 09:30 08/27/16 11:59 Milrinone 20mg/100ml Ivpb - IVPB 6.992 mls/hr TITR [facility] Administration 0.375 MCG/KG/MIN Vasopressin 50 units/ Sodium 100 mls @ 4 mls/hr 08/25/16 11:00 08/27/16 12:05 Chloride IVPB 4 mls/hr ASDIR [facility] Administration 2 UNITS/HR Polyethylene Glycol 17 gm 08/21/16 10:00 08/27/16 09:02 Miralax (For Daily Use) - PO Not Given DAILY [facility] Potassium Chloride 40 meq 08/26/16 09:06 08/27/16 21:45 K-Dur - PO 40 meq BID [facility] Administration Prednisone 20 mg 08/21/16 10:00 08/27/16 09:01 Deltasone - PO 20 mg DAILY [facility] Administration Ranitidine HCl 150 mg 08/20/16 22:00 08/27/16 21:46 Zantac - PO 150 mg BID [facility] Administration Imaging Echo: 07/2016 ASSESSMENT/PLAN: 76 yr old man with COPD, CHF, CKD, CAD s/p CABG, s/p biventricular pacemaker, CVA with residual left sided weakness, HTN, pulmonary HTN, HLD, current smoker presented to SOB/cough admitted to ICU for symptomatic anemia and hypotension. #Cardiovascular - acute exacerbation of systolic CHF -- milrinone .375mcg/kg/min, vasopressin 50units 4ml/hr and lasix 80mg ivpb TID -- hold BB -- patient has required pressure support, with improvement of diuresis, net negative I&O -- keane in place -- daily weights -- daily CXY to evaluate congestion - CAD -- as per cardio; holding ASA and plavix due to anemia, would consider restarting ASA Pulmonary - acute respiratory distress resolved, etiology likely multifactorial from decompensated CHF vs COPD - Prednisone 15mg po daily, decreased from 20mg(6 days) -- day 7 - nasal cannula 4lpm, maintain sat >90% Neurologic calm and cooperative, awake and alert orientation has been labile, continue to orient daily Gastrointestinal ascitis and cirrhosis noted on abdominal u/s, likely from pulmonary HTN/CHF miralax 17gm po for constipation, had small bowel movement yesterday ranitidine 150 mg po bid pt is high risk for surgical procedures, will require medical optimization, GI intervention for further evaluation of anemia currently deferred. anemia stable , no overt signs of bleeding, can follow up as outpatient. Renal sodium trending up, likely due to aggressive diuresis. Cr improved today aggressive electrolyte repletion, closely monitor I&O, BUN/Cr given aggressive diuresis Hematologic CLAIR s/p 2 units prbc's, H/H currently stable ferrous sulfate 325 mg po daily + Vitamin C leukocytosis likely from prolonged steroid use Muscuskeletal Physical therapy; pt ambulated with walker and assistance, tolerated well. OOB to chair was tolerated well Diet: low fat Na+ controlled DVT; b/l SCD's Dispo: pt requiring pressure support, continue ICU level of care Visit type - Emergency Visit Emergency Visit: No - New Patient This patient is new to me today: No - Critical Care Critical Care patient: Yes Total Critical Care Time (in minutes): 41 Critical Care Statement: The care of this patient involved high complexity decision making to prevent further life threatening deterioration of the patient 's condition and/or to evalute & treat vital organ system(s) failure or risk of failure.
--- NOTE | 2016-08-28 09:30 | PN ---
Progress Note, Physician Chief Complaint: pt in ICU on Vasopressin and Milrinone no SOb wheezing - Current Medication List Current Medications: Active Medications Acetaminophen (Tylenol -) 650 mg PO Q6H PRN PRN Reason: FEVER OR PAIN Last Admin: 08/27/16 09:02 Dose: 650 mg Albuterol/Ipratropium (Duoneb -) 1 amp NEB Q4H PRN PRN Reason: SHORTNESS OF BREATH Last Admin: 08/28/16 02:15 Dose: 1 amp Ascorbic Acid (Vitamin C -) 500 mg PO DAILY [facility] Last Admin: 08/27/16 09:02 Dose: 500 mg Atorvastatin Calcium (Lipitor -) 10 mg PO HS [facility] Last Admin: 08/27/16 21:46 Dose: 10 mg Chlorhexidine Gluconate (Hibiclens For Decolonization -) 1 applic TP HS [facility] Last Admin: 08/27/16 21:45 Dose: 1 applic Ferrous Sulfate (Feosol -) 325 mg PO DAILY [facility] Last Admin: 08/27/16 09:01 Dose: 325 mg Furosemide (Lasix Injection -) 80 mg IVPUSH 0600,1400,2000 [facility] Last Admin: 08/28/16 07:18 Dose: 80 mg Milrinone Lactate/Dextrose (Milrinone 20mg/100ml Ivpb -) 100 mls @ 6.992 mls/ hr IVPB TITR [facility] PRN Reason: 0.375 MCG/KG/MIN Last Admin: 08/27/16 11:59 Dose: 6.992 mls/hr Vasopressin 50 units/ Sodium (Chloride) 100 mls @ 4 mls/hr IVPB ASDIR [facility] PRN Reason: 2 UNITS/HR Last Admin: 08/27/16 12:05 Dose: 4 mls/hr Polyethylene Glycol (Miralax (For Daily Use) -) 17 gm PO DAILY [facility] Last Admin: 08/27/16 09:02 Dose: Not Given Potassium Chloride (K-Dur -) 40 meq PO BID [facility] Last Admin: 08/27/16 21:45 Dose: 40 meq Prednisone (Deltasone -) 20 mg PO DAILY [facility] Last Admin: 08/27/16 09:01 Dose: 20 mg Ranitidine HCl (Zantac -) 150 mg PO BID [facility] Last Admin: 08/27/16 21:46 Dose: 150 mg - Objective Vital Signs: Vital Signs Temperature 97.4 F L 08/28/16 02:00 Pulse Rate 86 08/28/16 06:00 Respiratory Rate 18 08/28/16 06:00 Blood Pressure 102/78 08/28/16 06:00 O2 Sat by Pulse Oximetry (%) 100 08/27/16 20:26 Constitutional: Yes: No Distress Cardiovascular: Yes: Regular Rate and Rhythm Respiratory: Yes: Diminished, Rhonchi Gastrointestinal: Yes: Normal Bowel Sounds, Soft, Distention. No: Tenderness Edema: No Neurological: Yes: Confusion Labs: CBC, BMP 08/27/16 05:30 08/28/16 05:30 INR, PTT INR 1.66 (0.82-1.09) H 08/14/16 07:55 Problem List - Problems (1) Anemia Code(s): D64.9 - ANEMIA, UNSPECIFIED Qualifiers: Anemia type: unspecified type Qualified Code(s): D64.9 - Anemia, unspecified (2) CHF (congestive heart failure) Code(s): I50.9 - HEART FAILURE, UNSPECIFIED Qualifiers: Congestive heart failure type: combined Congestive heart failure chronicity: acute on chronic Qualified Code(s): I50.43 - Acute on chronic combined systolic (congestive) and diastolic (congestive) heart failure (3) CKD (chronic kidney disease) Code(s): N18.9 - CHRONIC KIDNEY DISEASE, UNSPECIFIED Qualifiers: Chronic kidney disease stage: unspecified stage Qualified Code(s): N18.9 - Chronic kidney disease, unspecified (4) Hypotension Code(s): I95.9 - HYPOTENSION, UNSPECIFIED (5) CHF exacerbation Code(s): I50.9 - HEART FAILURE, UNSPECIFIED (6) COPD (chronic obstructive pulmonary disease) Code(s): J44.9 - CHRONIC OBSTRUCTIVE PULMONARY DISEASE, UNSPECIFIED Assessment/Plan PLAN On Lasix 80mg iv BID keane for i and O -- maintain keane iv Milrinone and Vasopressin Hb stable renal function stable Nebs as needed PT eval BP monitoring
[2016-08-28] MEDS ORDERED: VASOPRESSIN 20 UNITS/ML VIAL IV ONE (09:41)
--- NOTE | 2016-08-28 09:44 | PN ---
Progress Note (short form) - Note Progress Note: Chief Complaint: chf History of Present Illness: no cp, sob no palpit no edema. Still with significant abdominal distension/discomfort. + fatigue. Current Medications Acetaminophen (Tylenol -) 650 mg PO Q6H PRN PRN Reason: FEVER OR PAIN Last Admin: 08/27/16 09:02 Dose: 650 mg Albuterol/Ipratropium (Duoneb -) 1 amp NEB Q4H PRN PRN Reason: SHORTNESS OF BREATH Last Admin: 08/28/16 02:15 Dose: 1 amp Ascorbic Acid (Vitamin C -) 500 mg PO DAILY [facility] Last Admin: 08/27/16 09:02 Dose: 500 mg Atorvastatin Calcium (Lipitor -) 10 mg PO HS [facility] Last Admin: 08/27/16 21:46 Dose: 10 mg Chlorhexidine Gluconate (Hibiclens For Decolonization -) 1 applic TP HS [facility] Last Admin: 08/27/16 21:45 Dose: 1 applic Ferrous Sulfate (Feosol -) 325 mg PO DAILY [facility] Last Admin: 08/27/16 09:01 Dose: 325 mg Furosemide (Lasix Injection -) 80 mg IVPUSH 0600,1400,2000 [facility] Last Admin: 08/28/16 07:18 Dose: 80 mg Milrinone Lactate/Dextrose (Milrinone 20mg/100ml Ivpb -) 100 mls @ 6.992 mls/ hr IVPB TITR [facility] PRN Reason: 0.375 MCG/KG/MIN Last Admin: 08/27/16 11:59 Dose: 6.992 mls/hr Vasopressin 50 units/ Sodium (Chloride) 100 mls @ 4 mls/hr IVPB ASDIR [facility] PRN Reason: 2 UNITS/HR Last Admin: 08/27/16 12:05 Dose: 4 mls/hr Polyethylene Glycol (Miralax (For Daily Use) -) 17 gm PO DAILY [facility] Last Admin: 08/27/16 09:02 Dose: Not Given Potassium Chloride (K-Dur -) 40 meq PO BID [facility] Last Admin: 08/27/16 21:45 Dose: 40 meq Prednisone (Deltasone -) 20 mg PO DAILY [facility] Last Admin: 08/27/16 09:01 Dose: 20 mg Ranitidine HCl (Zantac -) 150 mg PO BID [facility] Last Admin: 08/27/16 21:46 Dose: 150 mg Vital Signs Period Temp Pulse Resp BP Sys/Vega Pulse Ox Last 24 Hr 97.4 F-97.7 F 75-89 16-22 95-113/52-78 100-100 Intake & Output 08/26/16 08/27/16 08/28/16 08/29/16 07:59 07:59 07:59 07:59 Intake Total 434 942 2617 Output Total 1100 2400 3400 Balance -600 -5606 -2286 Weight 133 lb 128 lb 9.6 oz 123 lb 14.397 oz Constitutional: Yes: No Distress, Calm Cardiovascular: Yes: Regular Rate and Rhythm, JVD (12-15cm), Murmur (loud TR murmur btw LLSB/apex), S1, S2, Other (PMI non diplaced). No: Gallop Respiratory: Yes: bibasilar rales (improved). No: Accessory Muscle Use, Rales, Wheezes Gastrointestinal: Yes: Normal Bowel Sounds, Soft. + distension No: Tenderness Musculoskeletal: Yes: Other (No kyphosis) Extremities: No: Cold Edema: No Integumentary: No: Jaundice Neurological: Yes: Alert, Oriented (x3) Psychiatric: No: Agitated Labs: CBC, BMP 08/27/16 05:30 08/28/16 05:30 - ....Imaging EKG: Other (tele: NSR, V-P > V-S; freq PVCs; frequent runs brief NSVT) Assessment/Plan Abd sono: moderate amount of ascites in upper abdomen. Liver and spleen findings c/w cirrhosis. cath 08/02 all grafts patent (self to lad, svg to lcx, svg to rpda) Echo 07/2016 (this admit): mod lve, sev reduced LV fn (global). mild rve with mild hypo (severe TR, intrinsic RV fn likely more depressed), 1+ connie. 1+ mr, severe tr, mod phtn, pl effusion cxr 08/21: congestive changes remain Assessment/Plan 76 yo recent smoker (quit 6 mo ago) with h/o CAD s/p CABG, ischemic CM with EF 25% s/p BiVICD with secondary severe pulmonary hypertension, prior CVA, HL, copd, CKD, bph, chronic iron deficiency anemia who p/w worsened cough, sob, hypotension and noted to have profound anemia. Pre-operative clearance/anemia. -hgb remains stable since prbcs transfused -RCRI of 3 with decompensated chf and low bp here. Has estimated high risk for jd-operative CV complications. Would optimize cardiac/pulmonary status if safe to delay endoscopy. still with decompensated heart failure at this time. isch CMP (acute systolic CHF exacerbation) - Patient's weight actually stable as outpatient in past month. Possible pulmonary congestion on CXR. ddx infection. trace le edema. After lasix 80 mg IV in ER last night, cr improved, but sodium worsened. Now s/p 2 units of PRBC and lasix 40 mg IV x 1 yesterday 08/14 with improvement in sodium, worsened again overnight. - 08/15: Patient overall comfortable. Unable to accurately assess I/O's, weights --> holding diuresis today so that he will definitively be net positive tomorrow and can reassess hypernatremia tomorrow and hepatic congestion. If worsens then will resume IV lasix. Patient with significant rhonchi and wheezes on exam. Also with moderate ascites on u/s. Frequent nsvt on tele. These findings remain concerning for heart failure exacerbation. - 08/16: significant worsening of abdominal distension and edema without lasix yesterday. Initiating bid diuresis with lasix 80 mg IV BID. BMP this evening prior to second lasix dose to monitor sodium and potassium. Reluctant to add beta alondra while with active wheezes and unclear if he is decompensated. - 08/17: nsvt/ectopy improved with diuresis. Echo shows worsened RV function. Patient likely with acute decompensated HF and superimposed RV HF exacerbation. BUN rising. Will start milrinone to augment RV function and reduce pulmonary pressures. Con't bid lasix. -08/18: cont milrinone and iv lasix, cr stable today. cxr still with chf. -08/19: milrinone stopped yesterday due to hypotension. clinically seems less vol overloaded. cr stable. cont iv lasix. will check cxr tomorrow am to monitor progress. -08/20: bnp 13K here initially, up to 17K (prior range 2K-5K) no weights; ++JVD persists, renal fxn improving. cxr reviewed: improving vs prior, some chf changes persist. he is likely still signif volume overloaded; will increase lasix (to 80 iv TID), follow UOP (keane). if does not diurese well or becomes hypotensive, will need to resume milrinone with pressors (dopa if ventric ectopy can tolerate; otherwise vasopressin) - 08/21: still with ++ abdominal distension/ascites, early satiety, dependent edema and congestive changes on cxr. diuresed will on tid lasix, but sodium bumped. Will resume milrinone to augment RV contractility and decrease pulmonary pressures. Repeat bmp this afternoon to make sure sodium heading in right direction. con't strict I/O q shift. standing weights. telemetry monitoring. baseline sys bp's typically 100's, monitor for hypotension on milrinone. -08/22: cr stable, wt down, symptomatically improved. na and bicarb rising, may be reaching a dry wt. will cont same iv lasix/milrinone today and monitor chem7 tomorrow to see if need to adjust diuretics further. -08/23-5: wt continues to decrease, na better. cr stable. cont same milrinone/ lasix until wt plateaus or signs of getting dry -08/25: no further weight decline (134 lbs), office wts 148-157 over past 3 mo; BP trend down (70s-90s overnight); ongoing massive EJ distension, +rales/ wheezing, rpt cxr not improved signif since admit (persistent L effusion and mild pulm edema) -suspect he remains volume up--started vasopressin low dose (0.03 u/min-i.e. 0.2 u/hr) for bp support, same lasix 80 iv tid -08/26: keane was yest but pt urinated voluminously to lasix (per RN)--keane back in with 1200cc UOP so far today since midnight; BP overall slightly improved ( mostly 100-110s systolic)--same lasix 80 iv tid, give dose of metolazone 2.5mg x1 today -08/27: 2000 cc UOP yesterday; wt trending down (though bedscale wts); CXR has not improved much since here (slight improvement R base); bun/creat trending up slightly. This is the first time in at least 7 days that pt reports sob improving, and there is no wheezing on exam; likewise, his JVD is finally below angle of the jaw;cxr ? slightly better (overpenetrated film). Continue same milrinone, vasopressing and lasix 80 iv tid with metolazone 2.5 x 1 today, rpt cxr in am. (suspect severe TR will leave him with residual very high JVD and right sided CHF tendencies, but would like to see lungs clear radiographically and sob/wheezing improve) - 08/28: CXR improved today. BMP stable (na slightly inc again). Will cut back to bid lasix today with metolazone x 1. Will wean milrinone to 0.2. Goal is 1L negative over next 24 hrs instead of 2L. Repeat bmp in afternoon --> Will reevaluate this afternoon and consider weaning vasopressin over night and consider transition to PO diuretics tomorrow. -was not on bb, aceI at home due to prior side effects of hypotension, dizziness --> will likely need to add vasodilator as milrinone is weaned. -office BiV followup/optimization with dr aparicio (if freq PVCs remain with BiV pacing frequency <90%, consider mexilitene or amio for PVC suppression to enhance JACK PRIZER, in d/w EP) ascites, imaging evidence of cirrhosis: -? cardiac cirrhosis from right sided chf/severe TR -chf optimization as doing -defer ? further GI/liver eval to pmd/outpt cardio CAD s/p h/o CABG 2006 - holding ASA, plavix due to initial presentation of anemia requiring transfusion. If anti-platelets can be resumed, would consider resuming ASA alone. - no angina or signs acs h/o CVA: -was on ASA, plavix --> on hold as above. V Tach: - nsvt seen on prior ICD checks and on tele here as well. - electrolyte repletion prn as doing (aggressive targets). - con't telemetry monitoring. - will cont deferring BB today while still decompensated preparing for ionotrope wean. - weaning milrinone as above. PAT/PSVT - brief episodes on tele here a.e. COPD: -On steroids, pulm following est crit care time 36min
[2016-08-28] MEDS: RANITIDINE HCL 150 MG TABLET (FP) PO SCH ×2 (09:45→21:47)
[2016-08-28] MEDS: predniSONE 20 MG TABLET (UD) PO SCH (09:45)
[2016-08-28] MEDS: ASCORBIC ACID 500 MG TABLET (FP) PO SCH (09:45)
[2016-08-28] MEDS: FERROUS SO4 325 MG TABLET (FP) PO SCH (09:45)
[2016-08-28] MEDS: POLYETHYLENE GLYCOL 3350 119 GM BTL PO SCH (09:46)
[2016-08-28] MEDS ORDERED: FUROSEMIDE 40 MG/4 ML INJECTABLE VIAL ONE (12:55)
[2016-08-28] MEDS ORDERED: METOLAZONE 2.5 MG TABLET (FP) PO ONE (13:30)
--- NOTE | 2016-08-28 15:11 | PN ---
Teaching Attending Note Name of Resident: Chong Serna ATTENDING PHYSICIAN STATEMENT I saw and evaluated the patient. I reviewed the resident's note and discussed the case with the resident. I agree with the resident's findings and plan as documented. SUBJECTIVE: Patient seen and examined in the ICU. Reports that his breathing is better. Some mild non-specific abdominal discomfort (had a small BM yesterday). Remains on Milrinone and Vasopressin. Denies CP. Some dry cough. Intake & Output 08/25/16 08/26/16 08/27/16 08/28/16 23:59 23:59 23:59 23:59 Intake Total 954 224 0072 132 Output Total 400 2000 3400 1100 Balance -77 -1391 -2186 -968 Weight 136 lb 10.986 oz 133 lb 128 lb 9.6 oz 123 lb 14.397 oz Last Vital Signs Temp Pulse Resp BP Pulse Ox 98.2 F 84 18 120/70 99 08/28/16 10:00 08/28/16 12:00 08/28/16 12:00 08/28/16 12:00 08/28/16 10:38 Active Medications Acetaminophen (Tylenol -) 650 mg PO Q6H PRN PRN Reason: FEVER OR PAIN Last Admin: 08/27/16 09:02 Dose: 650 mg Albuterol/Ipratropium (Duoneb -) 1 amp NEB Q4H PRN PRN Reason: SHORTNESS OF BREATH Last Admin: 08/28/16 02:15 Dose: 1 amp Ascorbic Acid (Vitamin C -) 500 mg PO DAILY [facility] Last Admin: 08/28/16 09:45 Dose: 500 mg Atorvastatin Calcium (Lipitor -) 10 mg PO HS [facility] Last Admin: 08/27/16 21:46 Dose: 10 mg Chlorhexidine Gluconate (Hibiclens For Decolonization -) 1 applic TP HS [facility] Last Admin: 08/27/16 21:45 Dose: 1 applic Ferrous Sulfate (Feosol -) 325 mg PO DAILY [facility] Last Admin: 08/28/16 09:45 Dose: 325 mg Furosemide (Lasix Injection -) 80 mg IVPUSH BID@0600,1400 [facility] Last Admin: 08/28/16 13:32 Dose: 80 mg Vasopressin 50 units/ Sodium (Chloride) 100 mls @ 4 mls/hr IVPB [facility] PRN Reason: 2 UNITS/HR Last Admin: 08/27/16 12:05 Dose: 4 mls/hr Milrinone Lactate/Dextrose (Milrinone 20mg/100ml Ivpb -) 100 mls @ 3.729 mls/ hr IVPB TITR [facility] PRN Reason: 0.2 MCG/KG/MIN Polyethylene Glycol (Miralax (For Daily Use) -) 17 gm PO DAILY [facility] Last Admin: 08/28/16 09:46 Dose: Not Given Potassium Chloride (K-Dur -) 40 meq PO BID [facility] Last Admin: 08/27/16 21:45 Dose: 40 meq Prednisone (Deltasone -) 20 mg PO DAILY [facility] Last Admin: 08/28/16 09:45 Dose: 20 mg Ranitidine HCl (Zantac -) 150 mg PO BID [facility] Last Admin: 08/28/16 09:45 Dose: 150 mg Gen: Awake and alert Heart: RRR Lung: (+) bibasilar rales, No wheezes Abd: soft, nontender Ext: Less edema Laboratory Results - last 24 hr 08/28/16 05:30 Sodium 148 H Potassium 3.8 Chloride 98 Carbon Dioxide 38 H Anion Gap 12 BUN 58 H Creatinine 1.4 H Random Glucose 165 H Calcium 8.4 L Problem List - Problems (1) Anemia Code(s): D64.9 - ANEMIA, UNSPECIFIED Qualifiers: Anemia type: unspecified type Qualified Code(s): D64.9 - Anemia, unspecified (2) CKD (chronic kidney disease) Code(s): N18.9 - CHRONIC KIDNEY DISEASE, UNSPECIFIED Qualifiers: Chronic kidney disease stage: unspecified stage Qualified Code(s): N18.9 - Chronic kidney disease, unspecified (3) Lactic acid blood increased Code(s): R79.89 - OTHER SPECIFIED ABNORMAL FINDINGS OF BLOOD CHEMISTRY (4) CHF exacerbation Code(s): I50.9 - HEART FAILURE, UNSPECIFIED (5) COPD (chronic obstructive pulmonary disease) Code(s): J44.9 - CHRONIC OBSTRUCTIVE PULMONARY DISEASE, UNSPECIFIED (6) HTN (hypertension) Code(s): I10 - ESSENTIAL (PRIMARY) HYPERTENSION A/P Resolved Acute COPD Exacerbation Acute on Chronic Severe LV Systolic Dysfunction Cirrhosis Acute on Chronic Renal Failure CAD S/P CABG - Will try to continue Milrinone and Vasopressin and try to wean by tomorrow. - monitor urine output, creatinine - monitor H/H - taper off Prednisone - inhaled bronchodilators - replete lytes - DVT/GI prophylaxis - telemetry monitoring - Debo Stuart Critical care time spent reviewing chart, evaluating patient and formulating plan 35 min
[2016-08-28] MEDS: VASOPRESSIN 50 UNITS in SODIUM CHLORIDE 97.5 ML IVPB SCH (16:14)
[2016-08-28] MEDS: MILRINONE 20MG/100ML IVPB - 100 ML IVPB SCH ×2 (16:14→21:49)
[2016-08-28] MEDS: POTASSIUM CHLORIDE TABS 20 MEQ TABLET.ER (FP) PO SCH ×2 (16:15→21:47)
[2016-08-28 17:55] LABS: CALCIUM 8.3 mg/dL (8.5-10.1); CREATININE 1.3 mg/dL (0.7-1.3)
[2016-08-28 17:57] LABS: ALBUMIN 2.4 g/dl (3.4-5.0); BILIRUBIN,DIRECT 1.4 mg/dL (0.0-0.2); BILIRUBIN,TOTAL 1.9 mg/dL (0.2-1.0); TOT PROT 6.6 g/dl (6.4-8.2)
[2016-08-28] MEDS: CHLORHEXIDINE GLUCONATE 4% CLEANSER FOR DECOLONIZATION TP SCH (21:47)
[2016-08-28] MEDS: ATORVASTATIN CA 10 MG TABLET (FP) PO SCH (21:47)
[2016-08-28] MEDS: ACETAMINOPHEN 325 MG TABLET (FP) PO PRN (22:26)
[2016-08-28] MEDS: MAG HYDROX/AL HYDROX/SIMETH 30 ML UNIT-DOSE CUP PO PRN (23:21)
[2016-08-29 06:16] LABS: BASOPHIL 0.2 % (0-2.0); EOSINOPHIL 0.5 % (0-4.5); MCH 20.4 pg (25.7-33.7); MCHC 27.7 g/dl (32.0-35.9); MEAN CELL VOLUME 73.7 fl (80-96); MEAN PLT VOLUME 8.9 fl (7.5-11.1); NEUTROPHILS 90.6 % (42.8-82.8); PLATELET COUNT 148 K/MM3 (134-434); RDW 30.1 % (11.9-15.9); WHITE BLOOD COUNT 22.1 K/mm3 (4.0-10.0)
[2016-08-29 06:44] LABS: CALCIUM 8.2 mg/dL (8.5-10.1); CREATININE 1.3 mg/dL (0.7-1.3)
[2016-08-29 06:47] LABS: ALBUMIN 2.3 g/dl (3.4-5.0); BILIRUBIN,DIRECT 1.3 mg/dL (0.0-0.2); BILIRUBIN,TOTAL 1.8 mg/dL (0.2-1.0); TOT PROT 6.2 g/dl (6.4-8.2)
[2016-08-29] MEDS: FUROSEMIDE 40 MG/4 ML INJECTABLE VIAL IVPUSH SCH (06:54)
--- NOTE | 2016-08-29 07:25 | PN ---
Physical Exam: SUBJECTIVE: Patient seen and examined. resting comfortably in bed. says he is hungry but doesn't like the eggs because they lack salt denies chest pain, palpitations, abdominal pain, sob. OBJECTIVE: Vital Signs Period Temp Pulse Resp BP Sys/Vega Pulse Ox Last 24 Hr 98.1 F-98.2 F 78-92 16-22 80-120/45-78 95-100 GENERAL: thin, elderly man. the patient is awake, alert, and oriented to person , birthday, not place or date or president. in no acute distress. EYES: extraocular movements intact, sclera anicteric, conjunctiva clear. No ptosis. ENT: nares patent with nasal cannula in place, oropharynx clear without exudates /erythema, edentulism, dry mucous membranes. NECK: Trachea midline supple. CHEST: well-healed midline sternal scar LUNGS: no accessory muscle use, no wheezes, no crackles, diffuse rhonchi HEART: systolic murmur in apex. s1, s2. ABDOMEN: Soft, nontender, not distended, normoactive bowel sounds, no guarding. no suprapubic fullness/no ttp. EXTREMITIES: 2+ pulses, warm, well-perfused, no edema. no calf tenderness NEUROLOGICAL: Normal speech, facial symmetry. Laboratory Results - last 24 hr 08/28/16 08/28/16 08/29/16 15:30 15:30 05:10 WBC RBC Hgb Hct MCV MCHC RDW Plt Count MPV Neutrophils % Lymphocytes % Monocytes % Eosinophils % Basophils % Sodium 141 148 H Potassium 3.8 4.0 Chloride 94 L 93 L Carbon Dioxide 36 H 41 H Anion Gap 11 14 BUN 57 H 60 H Creatinine 1.3 1.3 Random Glucose 179 H 118 H D Calcium 8.3 L 8.2 L Total Bilirubin 1.9 H Direct Bilirubin 1.4 H AST 20 ALT 16 Alkaline Phosphatase 153 H Total Protein 6.6 Albumin 2.4 L 08/29/16 08/29/16 05:10 05:10 WBC 22.1 H RBC 4.04 Hgb 8.3 L Hct 29.8 L MCV 73.7 L MCHC 27.7 L RDW 30.1 H Plt Count 148 MPV 8.9 Neutrophils % 90.6 H Lymphocytes % 1.9 L Monocytes % 6.8 Eosinophils % 0.5 D Basophils % 0.2 Sodium Potassium Chloride Carbon Dioxide Anion Gap BUN Creatinine Random Glucose Calcium Total Bilirubin 1.8 H Direct Bilirubin 1.3 H AST 20 ALT 15 Alkaline Phosphatase 157 H Total Protein 6.2 L Albumin 2.3 L Active Medications Generic Name Dose Route Start Last Admin Trade Name Freq PRN Reason Stop Dose Admin Acetaminophen 650 mg 08/20/16 10:41 08/28/16 22:26 Tylenol - PO 650 mg Q6H PRN Administration FEVER OR PAIN Al Hydroxide/Mg Hydroxide 30 ml 08/28/16 23:15 08/28/16 23:21 Mylanta Oral Suspension - PO 30 ml Q6H PRN Administration DYSPEPSIA Albuterol/Ipratropium 1 amp 08/28/16 02:00 08/28/16 02:15 Duoneb - NEB 1 amp Q4H PRN Administration SHORTNESS OF BREATH Ascorbic Acid 500 mg 08/21/16 10:00 08/28/16 09:45 Vitamin C - PO 500 mg DAILY [facility] Administration Atorvastatin Calcium 10 mg 08/20/16 22:00 08/28/16 21:47 Lipitor - PO 10 mg HS [facility] Administration Chlorhexidine Gluconate 1 applic 08/20/16 22:00 08/28/16 21:47 Hibiclens For Decolonization - TP 1 applic HS [facility] Administration Ferrous Sulfate 325 mg 08/21/16 10:00 08/28/16 09:45 Feosol - PO 325 mg DAILY [facility] Administration Furosemide 80 mg 08/28/16 14:00 08/29/16 06:54 Lasix Injection - IVPUSH 80 mg BID@0600,1400 [facility] Administration Vasopressin 50 units/ Sodium 100 mls @ 4 mls/hr 08/25/16 11:00 08/28/16 16:14 Chloride IVPB 4 mls/hr ASDIR [facility] Administration 2 UNITS/HR Milrinone Lactate/Dextrose 100 mls @ 3.729 mls/hr 08/28/16 12:00 08/28/16 21:49 Milrinone 20mg/100ml Ivpb - IVPB 3.729 mls/hr TITR [facility] Administration 0.2 MCG/KG/MIN Polyethylene Glycol 17 gm 08/21/16 10:00 08/28/16 09:46 Miralax (For Daily Use) - PO Not Given DAILY [facility] Potassium Chloride 40 meq 08/26/16 09:06 08/28/16 21:47 K-Dur - PO 40 meq BID [facility] Administration Prednisone 15 mg 08/29/16 10:00 Deltasone - PO DAILY [facility] Ranitidine HCl 150 mg 08/20/16 22:00 08/28/16 21:47 Zantac - PO 150 mg BID [facility] Administration ASSESSMENT/PLAN: 76 yr old man with COPD, CHF, CKD, CAD s/p CABG, s/p biventricular pacemaker, CVA with residual left sided weakness, HTN, pulmonary HTN, HLD, current smoker presented to SOB/cough admitted to ICU for symptomatic anemia and hypotension. #Cardiovascular - acute exacerbation of systolic CHF -- milrinone .375mcg/kg/min, wean -- vasopressin 50units 4ml/hr, wena -- lasix 80mg ivpb BID -- hold BB -- decreased milrinone today; BP has been improving -- keane in place, daily weights, net negative I&O, -- daily CXY to evaluate congestion; cxy stable - CAD -- as per cardio; holding ASA and plavix due to anemia, would consider restarting ASA Pulmonary - acute respiratory distress resolved, etiology likely multifactorial from decompensated CHF vs COPD - Prednisone 15mg po daily, decreased from 20mg(6 days) -- day 8 -- prednisone not listed in home meds, can taper off slowly - nasal cannula 4lpm, maintain sat >90% Neurologic calm and cooperative, awake and alert orientation has been labile, continue to orient daily Gastrointestinal ascitis and cirrhosis noted on abdominal u/s, likely from pulmonary HTN/CHF miralax 17gm po for constipation ranitidine 150 mg po bid Renal sodium trending up, likely due to aggressive diuresis. Cr improved today aggressive electrolyte repletion, closely monitor I&O, BUN/Cr given aggressive diuresis Hematologic CLAIR s/p 2 units prbc's, H/H currently stable ferrous sulfate 325 mg po daily + Vitamin C leukocytosis likely from prolonged steroid use Muscuskeletal Physical therapy Diet: low fat Na+ controlled DVT; b/l SCD's Dispo: pt bp and respiratory status improving, once stable may be monitored on telemetry, will reasses in 24hrs. GOC to be discussed with family given extensive cardiac disease, patient's prognosis is poor. Visit type - Emergency Visit Emergency Visit: No - New Patient This patient is new to me today: No - Critical Care Critical Care patient: Yes Total Critical Care Time (in minutes): 38 Critical Care Statement: The care of this patient involved high complexity decision making to prevent further life threatening deterioration of the patient 's condition and/or to evalute & treat vital organ system(s) failure or risk of failure.
[2016-08-29] MEDS: POTASSIUM CHLORIDE TABS 20 MEQ TABLET.ER (FP) PO SCH ×2 (10:00→21:51)
--- NOTE | 2016-08-29 10:02 | PN ---
Progress Note, Physician Chief Complaint: pt in ICU on Vasopressin Milrinone dc today no SOB confused weak sleepy - Current Medication List Current Medications: Active Medications Acetaminophen (Tylenol -) 650 mg PO Q6H PRN PRN Reason: FEVER OR PAIN Last Admin: 08/28/16 22:26 Dose: 650 mg Al Hydroxide/Mg Hydroxide (Mylanta Oral Suspension -) 30 ml PO Q6H PRN PRN Reason: DYSPEPSIA Last Admin: 08/28/16 23:21 Dose: 30 ml Albuterol/Ipratropium (Duoneb -) 1 amp NEB Q4H PRN PRN Reason: SHORTNESS OF BREATH Last Admin: 08/28/16 02:15 Dose: 1 amp Ascorbic Acid (Vitamin C -) 500 mg PO DAILY [facility] Last Admin: 08/28/16 09:45 Dose: 500 mg Atorvastatin Calcium (Lipitor -) 10 mg PO HS [facility] Last Admin: 08/28/16 21:47 Dose: 10 mg Chlorhexidine Gluconate (Hibiclens For Decolonization -) 1 applic TP [facility] Last Admin: 08/28/16 21:47 Dose: 1 applic Ferrous Sulfate (Feosol -) 325 mg PO DAILY [facility] Last Admin: 08/28/16 09:45 Dose: 325 mg Furosemide (Lasix Injection -) 80 mg IVPUSH BID@0600,1400 [facility] Last Admin: 08/29/16 06:54 Dose: 80 mg Vasopressin 50 units/ Sodium (Chloride) 100 mls @ 4 mls/hr IVPB ASDIR [facility] PRN Reason: 2 UNITS/HR Last Admin: 08/28/16 16:14 Dose: 4 mls/hr Polyethylene Glycol (Miralax (For Daily Use) -) 17 gm PO DAILY [facility] Last Admin: 08/28/16 09:46 Dose: Not Given Potassium Chloride (K-Dur -) 40 meq PO BID [facility] Last Admin: 08/28/16 21:47 Dose: 40 meq Prednisone (Deltasone -) 15 mg PO DAILY [facility] Ranitidine HCl (Zantac -) 150 mg PO BID [facility] Last Admin: 08/28/16 21:47 Dose: 150 mg - Objective Vital Signs: Vital Signs Temperature 98.1 F 08/28/16 17:56 Pulse Rate 92 H 08/29/16 05:44 Respiratory Rate 21 08/29/16 05:44 Blood Pressure 102/66 08/29/16 05:44 O2 Sat by Pulse Oximetry (%) 95 08/28/16 20:23 Constitutional: Yes: No Distress Cardiovascular: Yes: Regular Rate and Rhythm, Murmur Respiratory: Yes: Diminished, Rhonchi Gastrointestinal: Yes: Normal Bowel Sounds, Soft. No: Tenderness Edema: No Labs: CBC, BMP 08/29/16 05:10 08/29/16 05:10 INR, PTT INR 1.66 (0.82-1.09) H 08/14/16 07:55 Problem List - Problems (1) Anemia Code(s): D64.9 - ANEMIA, UNSPECIFIED Qualifiers: Anemia type: unspecified type Qualified Code(s): D64.9 - Anemia, unspecified (2) CHF (congestive heart failure) Code(s): I50.9 - HEART FAILURE, UNSPECIFIED Qualifiers: Congestive heart failure type: combined Congestive heart failure chronicity: acute on chronic Qualified Code(s): I50.43 - Acute on chronic combined systolic (congestive) and diastolic (congestive) heart failure (3) CKD (chronic kidney disease) Code(s): N18.9 - CHRONIC KIDNEY DISEASE, UNSPECIFIED Qualifiers: Chronic kidney disease stage: unspecified stage Qualified Code(s): N18.9 - Chronic kidney disease, unspecified (4) Hypotension Code(s): I95.9 - HYPOTENSION, UNSPECIFIED (5) CHF exacerbation Code(s): I50.9 - HEART FAILURE, UNSPECIFIED (6) COPD (chronic obstructive pulmonary disease) Code(s): J44.9 - CHRONIC OBSTRUCTIVE PULMONARY DISEASE, UNSPECIFIED Assessment/Plan PLAN On Lasix 80mg iv BID iv Vasopressin Hb stable renal function stable Nebs as needed PT eval BP monitoring outcome poor here in this case as he has advanced cardiac disease-- this was informed to his daughter Jean Carlos Garay today-- she said she will speak with family and mother to come to a decision with regards to advance directives
[2016-08-29] MEDS: POLYETHYLENE GLYCOL 3350 119 GM BTL PO SCH (10:30)
[2016-08-29] MEDS: ASCORBIC ACID 500 MG TABLET (FP) PO SCH (10:30)
[2016-08-29] MEDS: predniSONE 5 MG TABLET (UD) PO SCH (10:30)
[2016-08-29] MEDS: FERROUS SO4 325 MG TABLET (FP) PO SCH (10:30)
[2016-08-29] MEDS: RANITIDINE HCL 150 MG TABLET (FP) PO SCH ×2 (10:30→21:51)
--- NOTE | 2016-08-29 11:20 | PN ---
Progress Note (short form) - Note Progress Note: CC: anemia/chf exacerbation, no cigs S: no cp, palps, dizziness, sob, orthopnea, le edema improved as well; no abd distension; feeling better overall, eating well Vital Signs Temp 98.1 F 08/28/16 17:56 Pulse 92 H 08/29/16 05:44 Resp 21 08/29/16 05:44 BP 102/66 08/29/16 05:44 Pulse Ox 95 08/28/16 20:23 Intake & Output 08/28/16 08/28/16 08/29/16 11:59 23:59 11:59 Intake Total 132 1246 292.4 Output Total 1100 2300 1100 Balance -968 -1054 -807.6 Weight 123 lb 14.397 oz 124 lb 1.924 oz Intake: IV 132 46 92.4 Milrinone 20Mg/100Ml Ivpb 84 - 100 ml @ 0.375 MCG/KG/ MIN 6.992 mls/hr IVPB TITR [facility] Rx#:[id number] Pitressin - 50 Units In 48 13 48 Normal Saline - 97.5 ml @ 2 UNITS/HR 4 mls/hr IVPB ASDIR [facility] Rx#: [id number] Milrinone 20Mg/100Ml Ivpb 33 44.4 - 100 ml @ 0.2 MCG/KG/ MIN 3.729 mls/hr IVPB TITR [facility] Rx#:[id number] Oral 1200 200 Output: Urine 1100 2300 1100 Keane 1100 2300 1100 Other: Voiding Method Indwelling Catheter Indwelling Catheter Weight Measurement Method Built in [facility] in [facility] Constitutional: Yes: Well Nourished, No Distress Eyes: No: Sclera Icterus Respiratory: Yes: scattered rhonchi No: Accessory Muscle Use, Wheezes Gastrointestinal: Yes: Normal Bowel Sounds. no Distention, No Hepatomegaly, Palpable Mass, Tenderness Cardiovascular: Yes: Regular Rate and Rhythm (soft heart sounds) Heart Sounds: Yes: S1, S2. No: Gallop Murmur: 2/6 high pitched sys murmur at lsb and apex Extremities: No: Cold, Cyanosis Edema: no le edema/c/c Peripheral Pulses:+dp pt Integumentary: No: Jaundice diaphoresis Neurological: Yes: Alert, appropriate Psychiatric: No: Agitated Current Medications Generic Name Dose Route Start Last Admin Trade Name Freq PRN Reason Stop Dose Admin Acetaminophen 650 mg 08/20/16 10:41 08/28/16 22:26 Tylenol - PO 650 mg Q6H PRN Administration FEVER OR PAIN Al Hydroxide/Mg Hydroxide 30 ml 08/28/16 23:15 08/28/16 23:21 Mylanta Oral Suspension - PO 30 ml Q6H PRN Administration DYSPEPSIA Albuterol/Ipratropium 1 amp 08/28/16 02:00 08/28/16 02:15 Duoneb - NEB 1 amp Q4H PRN Administration SHORTNESS OF BREATH Ascorbic Acid 500 mg 08/21/16 10:00 08/28/16 09:45 Vitamin C - PO 500 mg DAILY [facility] Administration Atorvastatin Calcium 10 mg 08/20/16 22:00 08/28/16 21:47 Lipitor - PO 10 mg HS [facility] Administration Chlorhexidine Gluconate 1 applic 08/20/16 22:00 08/28/16 21:47 Hibiclens For Decolonization - TP 1 applic HS [facility] Administration Ferrous Sulfate 325 mg 08/21/16 10:00 08/28/16 09:45 Feosol - PO 325 mg DAILY [facility] Administration Furosemide 80 mg 08/29/16 14:00 Lasix - PO BID@0600,1400 [facility] Vasopressin 50 units/ Sodium 100 mls @ 4 mls/hr 08/25/16 11:00 08/28/16 16:14 Chloride IVPB 4 mls/hr ASDIR [facility] Administration 2 UNITS/HR Polyethylene Glycol 17 gm 08/21/16 10:00 08/28/16 09:46 Miralax (For Daily Use) - PO Not Given DAILY [facility] Potassium Chloride 40 meq 08/26/16 09:06 08/28/16 21:47 K-Dur - PO 40 meq BID [facility] Administration Prednisone 15 mg 08/29/16 10:00 Deltasone - PO DAILY [facility] Ranitidine HCl 150 mg 08/20/16 22:00 08/28/16 21:47 Zantac - PO 150 mg BID [facility] Administration Laboratory Last Values WBC 22.1 K/mm3 (4.0-10.0) H 08/29/16 05:10 RBC 4.04 M/mm3 (4.00-5.60) 08/29/16 05:10 Hgb 8.3 GM/dL (11.7-16.9) L 08/29/16 05:10 Hct 29.8 % (35.4-49) L 08/29/16 05:10 MCV 73.7 fl (80-96) L 08/29/16 05:10 MCHC 27.7 g/dl (32.0-35.9) L 08/29/16 05:10 RDW 30.1 % (11.9-15.9) H 08/29/16 05:10 Plt Count 148 K/MM3 (134-434) 08/29/16 05:10 MPV 8.9 fl (7.5-11.1) 08/29/16 05:10 Neutrophils % 90.6 % (42.8-82.8) H 08/29/16 05:10 Lymphocytes % 1.9 % (8-40) L 08/29/16 05:10 Monocytes % 6.8 % (3.8-10.2) 08/29/16 05:10 Eosinophils % 0.5 % (0-4.5) D 08/29/16 05:10 Basophils % 0.2 % (0-2.0) 08/29/16 05:10 Differential Comment Manual diff done 08/27/16 05:30 Platelet Estimate Adequate (NORMAL) 08/27/16 05:30 Platelet Comment No clumping noted 08/19/16 05:27 Polychromasia 1+ 08/19/16 05:27 Hypochromic-Microcytic 3+ 08/27/16 05:30 Poikilocytosis 1+ 08/19/16 05:27 Basophilic Stippling Few 08/19/16 05:27 Anisocytosis 3+ 08/27/16 05:30 Microcytosis 2+ 08/27/16 05:30 Macrocytosis Few 08/27/16 05:30 Target Cells 3+ 08/27/16 05:30 Ovalocytes 1+ 08/19/16 05:27 INR 1.66 (0.82-1.09) H 08/14/16 07:55 PTT (Actin FS) 30.9 SECONDS (26.9-34.4) 08/13/16 15:45 VBG pH 7.30 (7.32-7.42) L 08/13/16 15:54 POC VBG pCO2 49.2 mmHg (38-52) 08/13/16 15:54 POC VBG pO2 25.4 mmHg (28-48) L 08/13/16 15:54 Mixed VBG HCO3 23.4 meq/L (19-25) 08/13/16 15:54 Sodium 148 mmol/L (136-145) H 08/29/16 05:10 Potassium 4.0 mmol/L (3.5-5.1) 08/29/16 05:10 Chloride 93 mmol/L (98-107) L 08/29/16 05:10 Carbon Dioxide 41 mmol/L (21-32) H 08/29/16 05:10 Anion Gap 14 (8-16) 08/29/16 05:10 BUN 60 mg/dL (7-18) H 08/29/16 05:10 Creatinine 1.3 mg/dL (0.7-1.3) 08/29/16 05:10 Creat Clearance w eGFR 53.67 (>60) 08/25/16 05:35 Random Glucose 118 mg/dL (74-106) H D 08/29/16 05:10 Lactic Acid 1.712 mmol/L (0.4-2.0) 08/14/16 07:55 Calcium 8.2 mg/dL (8.5-10.1) L 08/29/16 05:10 Phosphorus 3.7 mg/dL (2.5-4.9) 08/20/16 05:20 Magnesium 2.5 mg/dL (1.8-2.4) H 08/27/16 05:30 Iron 15 ug/dL (38-169) L 08/13/16 15:50 TIBC 305 ug/dL (250-450) 08/13/16 15:50 Iron Saturation 5 % (15-55) L 08/13/16 15:50 Ferritin 28.597 ng/ml (16.4-293.9) 08/13/16 12:00 Total Bilirubin 1.8 mg/dL (0.2-1.0) H 08/29/16 05:10 Direct Bilirubin 1.3 mg/dL (0.0-0.2) H 08/29/16 05:10 AST 20 U/L (15-37) 08/29/16 05:10 ALT 15 U/L (12-78) 08/29/16 05:10 Alkaline Phosphatase 157 U/L (45-117) H 08/29/16 05:10 Creatine Kinase 67 IU/L (39-308) 08/13/16 15:45 Troponin I 0.06 ng/ml (0.00-0.05) H D 08/13/16 15:45 B-Natriuretic Peptide 71490.44 pg/ml (5-450) H 08/16/16 20:30 Total Protein 6.2 g/dl (6.4-8.2) L 08/29/16 05:10 Albumin 2.3 g/dl (3.4-5.0) L 08/29/16 05:10 TSH 2.00 uIU/ml (0.358-3.74) 08/13/16 12:00 Stool Occult Blood Negative (NEGATIVE) 08/13/16 17:00 Blood Type A POSITIVE 08/13/16 15:45 Antibody Screen Negative 08/13/16 15:45 Crossmatch See Detail 08/13/16 15:45 tele: v-paced, occ pvcs, brief nsvt Abd u/a: moderate amount of ascites in upper abdomen. Liver and spleen findings c/w cirrhosis. cath 08/02 all grafts patent (self to lad, svg to lcx, svg to rpda) Echo 07/2016 (this admit): mod lve, sev reduced LV fn (global). mild rve with mild hypo (severe TR, intrinsic RV fn likely more depressed), 1+ connie. 1+ mr, severe tr, mod phtn, pl effusion Echo 07/2015: sev lve, sev reduced lvef (global). grade 2 diastolic dysfunction. nl RV. mild connie. dilated ivc. mod mr, mod-sev tr, sev phtn, mild pr. Echo 08/03: sev LVE with severe decr EF; mild RV dil with moderate hypo; mod MR/ TR; RVSP >60 a/p: 76 yo recent smoker (quit 6 mo ago) with h/o CAD s/p CABG, ischemic CM with EF 25% s/p BiVICD with secondary severe pulmonary hypertension, prior CVA , HL, copd, CKD, bph, chronic iron deficiency anemia who p/w worsened cough, sob , hypotension and noted to have profound anemia. Pre-operative clearance/anemia. -hgb remains stable since prbcs transfused -RCRI of 3 with decompensated chf and low bp here. Has estimated high risk for jd-operative CV complications. Would optimize cardiac/pulmonary status if safe to delay endoscopy. still with decompensated heart failure at this time but improving. isch CMP (acute systolic CHF exacerbation) - Patient's weight actually stable as outpatient in past month. Possible pulmonary congestion on CXR. ddx infection. trace le edema. After lasix 80 mg IV in ER last night, cr improved, but sodium worsened. Now s/p 2 units of PRBC and lasix 40 mg IV x 1 yesterday 08/14 with improvement in sodium, worsened again overnight. - 08/15: Patient overall comfortable. Unable to accurately assess I/O's, weights --> holding diuresis today so that he will definitively be net positive tomorrow and can reassess hypernatremia tomorrow and hepatic congestion. If worsens then will resume IV lasix. Patient with significant rhonchi and wheezes on exam. Also with moderate ascites on u/s. Frequent nsvt on tele. These findings remain concerning for heart failure exacerbation. - 08/16: significant worsening of abdominal distension and edema without lasix yesterday. Initiating bid diuresis with lasix 80 mg IV BID. BMP this evening prior to second lasix dose to monitor sodium and potassium. Reluctant to add beta alondra while with active wheezes and unclear if he is decompensated. - 08/17: nsvt/ectopy improved with diuresis. Echo shows worsened RV function. Patient likely with acute decompensated HF and superimposed RV HF exacerbation. BUN rising. Will start milrinone to augment RV function and reduce pulmonary pressures. Con't bid lasix. -08/18: cont milrinone and iv lasix, cr stable today. cxr still with chf. -08/19: milrinone stopped yesterday due to hypotension. clinically seems less vol overloaded. cr stable. cont iv lasix. will check cxr tomorrow am to monitor progress. -08/20: bnp 13K here initially, up to 17K (prior range 2K-5K) no weights; ++JVD persists, renal fxn improving. cxr reviewed: improving vs prior, some chf changes persist. he is likely still signif volume overloaded; will increase lasix (to 80 iv TID), follow UOP (keane). if does not diurese well or becomes hypotensive, will need to resume milrinone with pressors (dopa if ventric ectopy can tolerate; otherwise vasopressin) - 08/21: still with ++ abdominal distension/ascites, early satiety, dependent edema and congestive changes on cxr. diuresed will on tid lasix, but sodium bumped. Will resume milrinone to augment RV contractility and decrease pulmonary pressures. Repeat bmp this afternoon to make sure sodium heading in right direction. con't strict I/O q shift. standing weights. telemetry monitoring. baseline sys bp's typically 100's, monitor for hypotension on milrinone. -08/22: cr stable, wt down, symptomatically improved. na and bicarb rising, may be reaching a dry wt. will cont same iv lasix/milrinone today and monitor chem7 tomorrow to see if need to adjust diuretics further. -08/23-5: wt continues to decrease, na better. cr stable. cont same milrinone/ lasix until wt plateaus or signs of getting dry -08/25: no further weight decline (134 lbs), office wts 148-157 over past 3 mo; BP trend down (70s-90s overnight); ongoing massive EJ distension, +rales/ wheezing, rpt cxr not improved signif since admit (persistent L effusion and mild pulm edema) -suspect he remains volume up--started vasopressin low dose (0.03 u/min-i.e. 0.2 u/hr) for bp support, same lasix 80 iv tid -08/26: keane was yest but pt urinated voluminously to lasix (per RN)--keane back in with 1200cc UOP so far today since midnight; BP overall slightly improved ( mostly 100-110s systolic)--same lasix 80 iv tid, give dose of metolazone 2.5mg x1 today -08/27: 2000 cc UOP yesterday; wt trending down (though bedscale wts); CXR has not improved much since here (slight improvement R base); bun/creat trending up slightly. This is the first time in at least 7 days that pt reports sob improving, and there is no wheezing on exam; likewise, his JVD is finally below angle of the jaw;cxr ? slightly better (overpenetrated film). Continue same milrinone, vasopressing and lasix 80 iv tid with metolazone 2.5 x 1 today, rpt cxr in am. (suspect severe TR will leave him with residual very high JVD and right sided CHF tendencies, but would like to see lungs clear radiographically and sob/wheezing improve) - 08/28: CXR improved today. BMP stable (na slightly inc again). Will cut back to bid lasix today with metolazone x 1. Will wean milrinone to 0.2. Goal is 1L negative over next 24 hrs instead of 2L. Repeat bmp in afternoon --> Will reevaluate this afternoon and consider weaning vasopressin over night and consider transition to PO diuretics tomorrow. -08/29: vol status stable, cr stable. Will begin transitioning to po med regimen. Dc milrinone today and then wean off vasopressin as bp allows. Will change to po lasix 80 bid for now and monitor vol status/cr to see if this dose needs to be adjusted -was not on bb, aceI at home due to prior side effects of hypotension, dizziness --> once off vasopressin will add low dose reno/bb -office BiV followup/optimization with dr aparicio (if freq PVCs remain with BiV pacing frequency <90%, consider mexilitene or amio for PVC suppression to enhance [employer], in d/w EP) ascites, imaging evidence of cirrhosis: -? cardiac cirrhosis from right sided chf/severe TR -chf optimization as doing -defer ? further GI/liver eval to pmd/GI CAD s/p h/o CABG 2006 - holding ASA, plavix due to initial presentation of anemia requiring transfusion. If anti-platelets can be resumed, would consider resuming ASA alone. - no angina or signs acs h/o CVA: -was on ASA, plavix --> on hold as above. V Tach: - nsvt seen on prior ICD checks and on tele here as well. - electrolyte repletion prn as doing - con't telemetry monitoring. - will cont deferring BB while still on vasopressin with low bp - weaning milrinone as above. PAT/PSVT - brief episodes on tele here a.e. COPD: -On steroids, pulm following est crit care time 37min
--- NOTE | 2016-08-29 13:01 | PN ---
Teaching Attending Note Name of Resident: Chong Serna ATTENDING PHYSICIAN STATEMENT I saw and evaluated the patient. I reviewed the resident's note and discussed the case with the resident. I agree with the resident's findings and plan as documented. SUBJECTIVE: Pt seen and examined in the ICU. Remains on low dose vasopressin. Denies shortness of breath, chest pain or palpitations. OBJECTIVE: Last Vital Signs Temp Pulse Resp BP Pulse Ox 98.1 F 92 H 21 102/66 95 08/28/16 17:56 08/29/16 05:44 08/29/16 05:44 08/29/16 05:44 08/28/16 20:23 Intake & Output 08/26/16 08/27/16 08/28/16 08/29/16 23:59 23:59 23:59 23:59 Intake Total 609 1214 1378 292.4 Output Total 1999 3400 3400 1100 Balance -1391 -2186 -2022 -807.6 Weight 133 lb 128 lb 9.6 oz 123 lb 14.397 oz 124 lb 1.924 oz Gen: somnolent but arousable Heart: RRR Lung: decreased breath sounds at the bases Abd: soft, nontender Ext: no edema CBC, BMP 08/29/16 05:10 08/29/16 05:10 Active Medications Acetaminophen (Tylenol -) 650 mg PO Q6H PRN PRN Reason: FEVER OR PAIN Last Admin: 08/28/16 22:26 Dose: 650 mg Al Hydroxide/Mg Hydroxide (Mylanta Oral Suspension -) 30 ml PO Q6H PRN PRN Reason: DYSPEPSIA Last Admin: 08/28/16 23:21 Dose: 30 ml Albuterol/Ipratropium (Duoneb -) 1 amp NEB Q4H PRN PRN Reason: SHORTNESS OF BREATH Last Admin: 08/28/16 02:15 Dose: 1 amp Ascorbic Acid (Vitamin C -) 500 mg PO DAILY [facility] Last Admin: 08/28/16 09:45 Dose: 500 mg Atorvastatin Calcium (Lipitor -) 10 mg PO HS [facility] Last Admin: 08/28/16 21:47 Dose: 10 mg Chlorhexidine Gluconate (Hibiclens For Decolonization -) 1 applic TP HS [facility] Last Admin: 08/28/16 21:47 Dose: 1 applic Ferrous Sulfate (Feosol -) 325 mg PO DAILY [facility] Last Admin: 08/28/16 09:45 Dose: 325 mg Furosemide (Lasix -) 80 mg PO BID@0600,1400 [facility] Vasopressin 50 units/ Sodium (Chloride) 100 mls @ 4 mls/hr IVPB ASDIR [facility] PRN Reason: 2 UNITS/HR Last Admin: 08/28/16 16:14 Dose: 4 mls/hr Polyethylene Glycol (Miralax (For Daily Use) -) 17 gm PO DAILY [facility] Last Admin: 08/28/16 09:46 Dose: Not Given Potassium Chloride (K-Dur -) 40 meq PO BID [facility] Last Admin: 08/28/16 21:47 Dose: 40 meq Prednisone (Deltasone -) 15 mg PO DAILY [facility] Ranitidine HCl (Zantac -) 150 mg PO BID [facility] Last Admin: 08/28/16 21:47 Dose: 150 mg ASSESSMENT AND PLAN: 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
[2016-08-29] MEDS: FUROSEMIDE 40 MG TABLET (FP) PO SCH (15:00)
[2016-08-29] MEDS ORDERED: VASOPRESSIN 20 UNITS/ML VIAL IV ONE (15:53)
[2016-08-29] MEDS: VASOPRESSIN 50 UNITS in SODIUM CHLORIDE 97.5 ML IVPB SCH (16:23)
[2016-08-29 21:40] LABS: ARTERIAL BLD GAS O2 SATURATION 92.7 % (90-98.9); ARTERIAL BLOOD GAS HCO3 40.1 meq/L (22-26); ARTERIAL BLOOD GAS PO2 62.6 mmHg (70-100)
[2016-08-29 21:41] LABS: ALLENS TEST POSITIVE; ART PUNCT SITE RIGHT RADIAL; LPM/O2% 40%; PT. ON O2? YES
[2016-08-29 21:42] LABS: TYPE OF O2 VENTI MASK
[2016-08-29] MEDS: ATORVASTATIN CA 10 MG TABLET (FP) PO SCH (21:51)
[2016-08-29] MEDS: CHLORHEXIDINE GLUCONATE 4% CLEANSER FOR DECOLONIZATION TP SCH (21:51)
[2016-08-29 22:25] LABS: ALBUMIN 2.3 g/dl (3.4-5.0); BILIRUBIN,DIRECT 1.5 mg/dL (0.0-0.2); BILIRUBIN,TOTAL 2.1 mg/dL (0.2-1.0); TOT PROT 6.5 g/dl (6.4-8.2)
[2016-08-30] MEDS: FUROSEMIDE 40 MG TABLET (FP) PO SCH ×2 (06:20→13:00)
[2016-08-30 06:31] LABS: BASOPHIL 0.3 % (0-2.0); EOSINOPHIL 0.4 % (0-4.5); MCH 20.8 pg (25.7-33.7); MCHC 28.4 g/dl (32.0-35.9); MEAN CELL VOLUME 73.1 fl (80-96); MEAN PLT VOLUME 9.4 fl (7.5-11.1); NEUTROPHILS 90.2 % (42.8-82.8); PLATELET COUNT 144 K/MM3 (134-434); RDW 29.5 % (11.9-15.9); WHITE BLOOD COUNT 17.4 K/mm3 (4.0-10.0)
[2016-08-30 06:43] LABS: CREATININE 1.2 mg/dL (0.7-1.3)
[2016-08-30 06:48] LABS: ALBUMIN 2.2 g/dl (3.4-5.0)
[2016-08-30 06:50] LABS: BILIRUBIN,DIRECT 1.6 mg/dL (0.0-0.2); BILIRUBIN,TOTAL 2.1 mg/dL (0.2-1.0); TOT PROT 6.1 g/dl (6.4-8.2)
--- NOTE | 2016-08-30 07:54 | PN ---
Physical Exam: SUBJECTIVE: Patient seen and examined. c/o intermittent cough. thinks he is in a advent in [facility]. calm and cooperative. Primary team to meet with Palliative Care and discuss GOC with family. OBJECTIVE: Vital Signs Period Temp Pulse Resp BP Sys/Vega Pulse Ox Last 24 Hr 98 F-98.4 F 76-94 15-24 90-108/55-71 96-100 GENERAL: thin, elderly man. the patient is awake, alert, and oriented to person , birthday, not place or date. in no acute distress. EYES: extraocular movements intact, conjunctiva clear. ENT: venti mask in place, oropharynx clear without exudates/erythema, edentulism , dry mucous membranes. NECK: Trachea midline supple. CHEST: well-healed midline sternal scar LUNGS: no accessory muscle use, no wheezes, no crackles, diffuse rales. HEART: systolic murmur in apex. s1, s2. ABDOMEN: Soft, nontender, not distended, normoactive bowel sounds, no guarding. no suprapubic fullness/no ttp. EXTREMITIES: 2+ pulses, warm, well-perfused, no edema. no calf tenderness NEUROLOGICAL: Normal speech, facial symmetry. Laboratory Results - last 24 hr 08/29/16 08/29/16 08/29/16 21:30 21:30 21:30 WBC RBC Hgb Hct MCV MCHC RDW Plt Count MPV Neutrophils % Lymphocytes % Monocytes % Eosinophils % Basophils % Puncture Site Right radial ABG pH 7.50 H ABG pCO2 at Pt Temp 52.0 H ABG pO2 at Pt Temp 62.6 L ABG HCO3 40.1 H* ABG O2 Sat (Measured) 92.7 ABG O2 Content 10.9 L ABG Base Excess 15.0 H Louis Test Positive O2 Delivery Device Venti mask Oxygen Flow Rate 40% PEEP 0.0 Sodium Potassium Chloride Carbon Dioxide Anion Gap BUN Creatinine Random Glucose Lactic Acid 1.560 Calcium Total Bilirubin 2.1 H Direct Bilirubin 1.5 H AST 23 ALT 18 Alkaline Phosphatase 174 H Total Protein 6.5 Albumin 2.3 L Total Amylase 45 08/30/16 08/30/16 08/30/16 05:20 05:20 05:20 WBC 17.4 H RBC 3.93 L Hgb 8.2 L Hct 28.8 L MCV 73.1 L MCHC 28.4 L RDW 29.5 H Plt Count 144 MPV 9.4 Neutrophils % 90.2 H Lymphocytes % 3.1 L D Monocytes % 6.0 Eosinophils % 0.4 Basophils % 0.3 Puncture Site ABG pH ABG pCO2 at Pt Temp ABG pO2 at Pt Temp ABG HCO3 ABG O2 Sat (Measured) ABG O2 Content ABG Base Excess Louis Test O2 Delivery Device Oxygen Flow Rate PEEP Sodium 148 H Potassium 3.5 Chloride 95 L Carbon Dioxide 41 H Anion Gap 12 BUN 61 H Creatinine 1.2 Random Glucose 124 H Lactic Acid Calcium 8.0 L Total Bilirubin 2.1 H Direct Bilirubin 1.6 H AST 20 ALT 15 Alkaline Phosphatase 164 H Total Protein 6.1 L Albumin 2.2 L Total Amylase Active Medications Generic Name Dose Route Start Last Admin Trade Name Freq PRN Reason Stop Dose Admin Acetaminophen 650 mg 08/20/16 10:41 08/28/16 22:26 Tylenol - PO 650 mg Q6H PRN Administration FEVER OR PAIN Al Hydroxide/Mg Hydroxide 30 ml 08/28/16 23:15 08/28/16 23:21 Mylanta Oral Suspension - PO 30 ml Q6H PRN Administration DYSPEPSIA Albuterol/Ipratropium 1 amp 08/28/16 02:00 08/28/16 02:15 Duoneb - NEB 1 amp Q4H PRN Administration SHORTNESS OF BREATH Ascorbic Acid 500 mg 08/21/16 10:00 08/29/16 10:30 Vitamin C - PO 500 mg DAILY [facility] Administration Atorvastatin Calcium 10 mg 08/20/16 22:00 08/29/16 21:51 Lipitor - PO 10 mg HS [facility] Administration Chlorhexidine Gluconate 1 applic 08/20/16 22:00 08/29/16 21:51 Hibiclens For Decolonization - TP 1 applic HS [facility] Administration Ferrous Sulfate 325 mg 08/21/16 10:00 08/29/16 10:30 Feosol - PO 325 mg DAILY [facility] Administration Furosemide 80 mg 08/29/16 14:00 08/30/16 06:20 Lasix - PO 80 mg BID@0600,1400 [facility] Administration Vasopressin 50 units/ Sodium 100 mls @ 4 mls/hr 08/25/16 11:00 08/29/16 16:23 Chloride IVPB 4 mls/hr ASDIR [facility] Administration 2 UNITS/HR Polyethylene Glycol 17 gm 08/21/16 10:00 08/29/16 10:30 Miralax (For Daily Use) - PO Not Given DAILY [facility] Potassium Chloride 40 meq 08/26/16 09:06 08/29/16 21:51 K-Dur - PO 40 meq BID [facility] Administration Prednisone 15 mg 08/29/16 10:00 08/29/16 10:30 Deltasone - PO 15 mg DAILY [facility] Administration Ranitidine HCl 150 mg 08/20/16 22:00 08/29/16 21:51 Zantac - PO 150 mg BID [facility] Administration ASSESSMENT/PLAN: 76 yr old man with COPD, CHF, CKD, CAD s/p CABG, s/p biventricular pacemaker, CVA with residual left sided weakness, HTN, pulmonary HTN, HLD, current smoker presented to SOB/cough admitted to ICU for symptomatic anemia and hypotension. #Cardiovascular - acute exacerbation of systolic CHF - improved, baseline SBP 90's -- pressors dc/d, duiretics transitioned to po -- lasix 80mg po BID -- hold BB -- keane in place, daily weights, net negative I&O, Pulmonary - Prednisone 15mg po daily, decreased from 20mg(6 days) -- day 9 -- prednisone not listed in home meds, can taper off slowly - nasal cannula 4lpm, maintain sat >90% - ABG with metabolic alkalosis likely contraction alkalosis caused by duiresis, monitor closely. Neurologic calm and cooperative, awake and alert orientation has been labile, continue to orient daily Gastrointestinal ascitis and cirrhosis noted on abdominal u/s, likely from pulmonary HTN/CHF miralax 17gm po for constipation ranitidine 150 mg po bid Renal sodium trending up, likely due to aggressive diuresis. Cr improved today aggressive electrolyte repletion closely monitor I&O, BUN/Cr given aggressive diuresis Hematologic CLAIR s/p 2 units prbc's, H/H currently stable ferrous sulfate 325 mg po daily + Vitamin C leukocytosis likely from prolonged steroid use Muscuskeletal Physical therapy Diet: low fat Na+ controlled DVT; b/l SCD's Dispo: pt bp and respiratory status improving, may be monitored on telemetry. Code Status: DNR/DNI Visit type - Emergency Visit Emergency Visit: No - New Patient This patient is new to me today: No - Critical Care Critical Care patient: Yes Total Critical Care Time (in minutes): 37 Critical Care Statement: The care of this patient involved high complexity decision making to prevent further life threatening deterioration of the patient 's condition and/or to evalute & treat vital organ system(s) failure or risk of failure.
[2016-08-30] MEDS: POTASSIUM CHLORIDE TABS 20 MEQ TABLET.ER (FP) PO SCH ×2 (09:12→22:02)
[2016-08-30] MEDS: POLYETHYLENE GLYCOL 3350 119 GM BTL PO SCH (09:12)
[2016-08-30] MEDS: RANITIDINE HCL 150 MG TABLET (FP) PO SCH ×2 (09:12→22:02)
[2016-08-30] MEDS: FERROUS SO4 325 MG TABLET (FP) PO SCH (09:12)
[2016-08-30] MEDS: ASCORBIC ACID 500 MG TABLET (FP) PO SCH (09:12)
[2016-08-30] MEDS: MAG HYDROX/AL HYDROX/SIMETH 30 ML UNIT-DOSE CUP PO PRN (09:12)
[2016-08-30] MEDS ORDERED: PT OWN MED DRAWER 7, Y5N ONE (09:19)
[2016-08-30] MEDS: predniSONE 5 MG TABLET (UD) PO SCH (09:20)
--- NOTE | 2016-08-30 09:56 | PN ---
Progress Note, Physician Chief Complaint: pt in ICU Vasopressin dc about 45 min ago Milrinone dc yesterday no SOB confused weak denies any complaints - Current Medication List Current Medications: Active Medications Acetaminophen (Tylenol -) 650 mg PO Q6H PRN PRN Reason: FEVER OR PAIN Last Admin: 08/28/16 22:26 Dose: 650 mg Al Hydroxide/Mg Hydroxide (Mylanta Oral Suspension -) 30 ml PO Q6H PRN PRN Reason: DYSPEPSIA Last Admin: 08/30/16 09:12 Dose: 30 ml Albuterol/Ipratropium (Duoneb -) 1 amp NEB Q4H PRN PRN Reason: SHORTNESS OF BREATH Last Admin: 08/28/16 02:15 Dose: 1 amp Ascorbic Acid (Vitamin C -) 500 mg PO DAILY [facility] Last Admin: 08/30/16 09:12 Dose: 500 mg Atorvastatin Calcium (Lipitor -) 10 mg PO HS [facility] Last Admin: 08/29/16 21:51 Dose: 10 mg Chlorhexidine Gluconate (Hibiclens For Decolonization -) 1 applic TP [facility] Last Admin: 08/29/16 21:51 Dose: 1 applic Ferrous Sulfate (Feosol -) 325 mg PO DAILY [facility] Last Admin: 08/30/16 09:12 Dose: 325 mg Furosemide (Lasix -) 80 mg PO BID@0600,1400 [facility] Last Admin: 08/30/16 06:20 Dose: 80 mg Vasopressin 50 units/ Sodium (Chloride) 100 mls @ 4 mls/hr IVPB ASDIR [facility] PRN Reason: 2 UNITS/HR Last Admin: 08/29/16 16:23 Dose: 4 mls/hr Polyethylene Glycol (Miralax (For Daily Use) -) 17 gm PO DAILY [facility] Last Admin: 08/30/16 09:12 Dose: 17 gm Potassium Chloride (K-Dur -) 40 meq PO BID [facility] Last Admin: 08/30/16 09:12 Dose: 40 meq Prednisone (Deltasone -) 15 mg PO DAILY [facility] Last Admin: 08/30/16 09:20 Dose: 15 mg Ranitidine HCl (Zantac -) 150 mg PO BID [facility] Last Admin: 08/30/16 09:12 Dose: 150 mg - Objective Vital Signs: Vital Signs Temperature 98.3 F 08/30/16 09:51 Pulse Rate 74 08/30/16 09:51 Respiratory Rate 18 08/30/16 09:51 Blood Pressure 97/53 08/30/16 09:51 O2 Sat by Pulse Oximetry (%) 98 08/30/16 08:19 Constitutional: Yes: No Distress Cardiovascular: Yes: Regular Rate and Rhythm, Murmur Respiratory: Yes: Diminished, Rales (decreased) Gastrointestinal: Yes: Normal Bowel Sounds, Soft. No: Distention, Tenderness Edema: No Labs: CBC, BMP 08/30/16 05:20 08/30/16 05:20 INR, PTT INR 1.66 (0.82-1.09) H 08/14/16 07:55 Problem List - Problems (1) Anemia Code(s): D64.9 - ANEMIA, UNSPECIFIED Qualifiers: Anemia type: unspecified type Qualified Code(s): D64.9 - Anemia, unspecified (2) CHF (congestive heart failure) Code(s): I50.9 - HEART FAILURE, UNSPECIFIED Qualifiers: Congestive heart failure type: combined Congestive heart failure chronicity: acute on chronic Qualified Code(s): I50.43 - Acute on chronic combined systolic (congestive) and diastolic (congestive) heart failure (3) CKD (chronic kidney disease) Code(s): N18.9 - CHRONIC KIDNEY DISEASE, UNSPECIFIED Qualifiers: Chronic kidney disease stage: unspecified stage Qualified Code(s): N18.9 - Chronic kidney disease, unspecified (4) Hypotension Code(s): I95.9 - HYPOTENSION, UNSPECIFIED (5) CHF exacerbation Code(s): I50.9 - HEART FAILURE, UNSPECIFIED (6) COPD (chronic obstructive pulmonary disease) Code(s): J44.9 - CHRONIC OBSTRUCTIVE PULMONARY DISEASE, UNSPECIFIED Assessment/Plan PLAN On Lasix 80mg po BID Vasopressin dc Hb stable -- no active GI bleed, EGD on hold for now renal function stable Nebs as needed PT eval BP monitoring Had a meeting with family-- all daughters present including mother who is the HCP. Explained the prognosis and chronic condition . Pt expressed his wishes in the past that he does not want aggressive measures-- family agreed for DNR/DNI Document signed by mother.
--- NOTE | 2016-08-30 12:02 | PN ---
Progress Note (short form) - Note Progress Note: CC: anemia/chf exacerbation, no cigs S: off milrinone since yesterday, still on low dose vasopressin. no cp, palps , dizziness, sob, orthopnea, le edema improved as well; no abd distension; feeling better overall, eating well Vital Signs Temp 98.3 F 08/30/16 09:51 Pulse 75 08/30/16 11:15 Resp 18 08/30/16 11:00 BP 92/60 08/30/16 11:00 Pulse Ox 100 08/30/16 11:32 Intake & Output 08/29/16 08/29/16 08/30/16 11:59 23:59 11:59 Intake Total 292.4 50 394 Output Total 1100 2800 600 Balance -807.6 -2750 -206 Weight 124 lb 1.924 oz 123 lb 5 oz Intake: IV 92.4 54 Pitressin - 50 Units In 48 54 Normal Saline - 97.5 ml @ 2 UNITS/HR 4 mls/hr IVPB ASDIR [facility] Rx#: [id number] Milrinone 20Mg/100Ml Ivpb 44.4 0 - 100 ml @ 0.2 MCG/KG/ MIN 3.729 mls/hr IVPB TITR [facility] Rx#:[id number] Oral 200 50 340 Output: Urine 1100 2800 600 Keane 1100 2800 600 Other: Voiding Method Indwelling Catheter Indwelling Catheter Indwelling Catheter Bowel Movement No Weight Measurement Method Built in [facility] Built in [facility] Constitutional: Yes: Well Nourished, No Distress Eyes: No: Sclera Icterus Respiratory: Yes: scattered rhonchi No: Accessory Muscle Use, Wheezes Gastrointestinal: Yes: Normal Bowel Sounds. no Distention, No Hepatomegaly, Palpable Mass, Tenderness Cardiovascular: Yes: Regular Rate and Rhythm (soft heart sounds) Heart Sounds: Yes: S1, S2. No: Gallop Murmur: 2/6 high pitched sys murmur at lsb and apex Extremities: No: Cold, Cyanosis Edema: no le edema/c/c Peripheral Pulses:+dp pt Integumentary: No: Jaundice diaphoresis Neurological: Yes: Alert, appropriate Psychiatric: No: Agitated Current Medications Generic Name Dose Route Start Last Admin Trade Name Freq PRN Reason Stop Dose Admin Acetaminophen 650 mg 08/20/16 10:41 08/28/16 22:26 Tylenol - PO 650 mg Q6H PRN Administration FEVER OR PAIN Al Hydroxide/Mg Hydroxide 30 ml 08/28/16 23:15 08/30/16 09:12 Mylanta Oral Suspension - PO 30 ml Q6H PRN Administration DYSPEPSIA Albuterol/Ipratropium 1 amp 08/28/16 02:00 08/28/16 02:15 Duoneb - NEB 1 amp Q4H PRN Administration SHORTNESS OF BREATH Ascorbic Acid 500 mg 08/21/16 10:00 08/30/16 09:12 Vitamin C - PO 500 mg DAILY [facility] Administration Atorvastatin Calcium 10 mg 08/20/16 22:00 08/29/16 21:51 Lipitor - PO 10 mg HS [facility] Administration Chlorhexidine Gluconate 1 applic 08/20/16 22:00 08/29/16 21:51 Hibiclens For Decolonization - TP 1 applic HS [facility] Administration Ferrous Sulfate 325 mg 08/21/16 10:00 08/30/16 09:12 Feosol - PO 325 mg DAILY [facility] Administration Furosemide 80 mg 08/29/16 14:00 08/30/16 06:20 Lasix - PO 80 mg BID@0600,1400 [facility] Administration Vasopressin 50 units/ Sodium 100 mls @ 4 mls/hr 08/25/16 11:00 08/29/16 16:23 Chloride IVPB 4 mls/hr [facility] Administration 2 UNITS/HR Polyethylene Glycol 17 gm 08/21/16 10:00 08/30/16 09:12 Miralax (For Daily Use) - PO 17 gm DAILY [facility] Administration Potassium Chloride 40 meq 08/26/16 09:06 08/30/16 09:12 K-Dur - PO 40 meq BID [facility] Administration Prednisone 15 mg 08/29/16 10:00 08/30/16 09:20 Deltasone - PO 15 mg DAILY [facility] Administration Ranitidine HCl 150 mg 08/20/16 22:00 08/30/16 09:12 Zantac - PO 150 mg BID [facility] Administration Laboratory Last Values WBC 17.4 K/mm3 (4.0-10.0) H 08/30/16 05:20 RBC 3.93 M/mm3 (4.00-5.60) L 08/30/16 05:20 Hgb 8.2 GM/dL (11.7-16.9) L 08/30/16 05:20 Hct 28.8 % (35.4-49) L 08/30/16 05:20 MCV 73.1 fl (80-96) L 08/30/16 05:20 MCHC 28.4 g/dl (32.0-35.9) L 08/30/16 05:20 RDW 29.5 % (11.9-15.9) H 08/30/16 05:20 Plt Count 144 K/MM3 (134-434) 08/30/16 05:20 MPV 9.4 fl (7.5-11.1) 08/30/16 05:20 Neutrophils % 90.2 % (42.8-82.8) H 08/30/16 05:20 Lymphocytes % 3.1 % (8-40) L D 08/30/16 05:20 Monocytes % 6.0 % (3.8-10.2) 08/30/16 05:20 Eosinophils % 0.4 % (0-4.5) 08/30/16 05:20 Basophils % 0.3 % (0-2.0) 08/30/16 05:20 Differential Comment Manual diff done 08/27/16 05:30 Platelet Estimate Adequate (NORMAL) 08/27/16 05:30 Platelet Comment No clumping noted 08/19/16 05:27 Polychromasia 1+ 08/19/16 05:27 Hypochromic-Microcytic 3+ 08/27/16 05:30 Poikilocytosis 1+ 08/19/16 05:27 Basophilic Stippling Few 08/19/16 05:27 Anisocytosis 3+ 08/27/16 05:30 Microcytosis 2+ 08/27/16 05:30 Macrocytosis Few 08/27/16 05:30 Target Cells 3+ 08/27/16 05:30 Ovalocytes 1+ 08/19/16 05:27 INR 1.66 (0.82-1.09) H 08/14/16 07:55 PTT (Actin FS) 30.9 SECONDS (26.9-34.4) 08/13/16 15:45 Puncture Site Right radial 08/29/16 21:30 ABG pH 7.50 (7.35-7.45) H 08/29/16 21:30 ABG pCO2 at Pt Temp 52.0 mmHg (35-45) H 08/29/16 21:30 ABG pO2 at Pt Temp 62.6 mmHg (70-100) L 08/29/16 21:30 ABG HCO3 40.1 meq/L (22-26) H* 08/29/16 21:30 ABG O2 Sat (Measured) 92.7 % (90-98.9) 08/29/16 21:30 ABG O2 Content 10.9 % vol (15-22) L 08/29/16 21:30 ABG Base Excess 15.0 meq/l (-2-2) H 08/29/16 21:30 Louis Test Positive 08/29/16 21:30 VBG pH 7.30 (7.32-7.42) L 08/13/16 15:54 POC VBG pCO2 49.2 mmHg (38-52) 08/13/16 15:54 POC VBG pO2 25.4 mmHg (28-48) L 08/13/16 15:54 Mixed VBG HCO3 23.4 meq/L (19-25) 08/13/16 15:54 O2 Delivery Device Venti mask 08/29/16 21:30 Oxygen Flow Rate 40% 08/29/16 21:30 PEEP 0.0 cmH2O 08/29/16 21:30 Sodium 148 mmol/L (136-145) H 08/30/16 05:20 Potassium 3.5 mmol/L (3.5-5.1) 08/30/16 05:20 Chloride 95 mmol/L (98-107) L 08/30/16 05:20 Carbon Dioxide 41 mmol/L (21-32) H 08/30/16 05:20 Anion Gap 12 (8-16) 08/30/16 05:20 BUN 61 mg/dL (7-18) H 08/30/16 05:20 Creatinine 1.2 mg/dL (0.7-1.3) 08/30/16 05:20 Creat Clearance w eGFR 53.67 (>60) 08/25/16 05:35 Random Glucose 124 mg/dL (74-106) H 08/30/16 05:20 Lactic Acid 1.560 mmol/L (0.4-2.0) 08/29/16 21:30 Calcium 8.0 mg/dL (8.5-10.1) L 08/30/16 05:20 Phosphorus 3.7 mg/dL (2.5-4.9) 08/20/16 05:20 Magnesium 2.5 mg/dL (1.8-2.4) H 08/27/16 05:30 Iron 15 ug/dL (38-169) L 08/13/16 15:50 TIBC 305 ug/dL (250-450) 08/13/16 15:50 Iron Saturation 5 % (15-55) L 08/13/16 15:50 Ferritin 28.597 ng/ml (16.4-293.9) 08/13/16 12:00 Total Bilirubin 2.1 mg/dL (0.2-1.0) H 08/30/16 05:20 Direct Bilirubin 1.6 mg/dL (0.0-0.2) H 08/30/16 05:20 AST 20 U/L (15-37) 08/30/16 05:20 ALT 15 U/L (12-78) 08/30/16 05:20 Alkaline Phosphatase 164 U/L (45-117) H 08/30/16 05:20 Creatine Kinase 67 IU/L (39-308) 08/13/16 15:45 Troponin I 0.06 ng/ml (0.00-0.05) H D 08/13/16 15:45 B-Natriuretic Peptide 93501.44 pg/ml (5-450) H 08/16/16 20:30 Total Protein 6.1 g/dl (6.4-8.2) L 08/30/16 05:20 Albumin 2.2 g/dl (3.4-5.0) L 08/30/16 05:20 Total Amylase 45 U/L (25-115) 08/29/16 21:30 TSH 2.00 uIU/ml (0.358-3.74) 08/13/16 12:00 Stool Occult Blood Negative (NEGATIVE) 08/13/16 17:00 Blood Type A POSITIVE 08/13/16 15:45 Antibody Screen Negative 08/13/16 15:45 Crossmatch See Detail 08/13/16 15:45 tele: v-paced, brief nsvt Abd u/a: moderate amount of ascites in upper abdomen. Liver and spleen findings c/w cirrhosis. cath 08/02 all grafts patent (self to lad, svg to lcx, svg to rpda) Echo 07/2016 (this admit): mod lve, sev reduced LV fn (global). mild rve with mild hypo (severe TR, intrinsic RV fn likely more depressed), 1+ connie. 1+ mr, severe tr, mod phtn, pl effusion Echo 07/2015: sev lve, sev reduced lvef (global). grade 2 diastolic dysfunction. nl RV. mild connie. dilated ivc. mod mr, mod-sev tr, sev phtn, mild pr. Echo 08/03: sev LVE with severe decr EF; mild RV dil with moderate hypo; mod MR/ TR; RVSP >60 a/p: 76 yo recent smoker (quit 6 mo ago) with h/o CAD s/p CABG, ischemic CM with EF 25% s/p BiVICD with secondary severe pulmonary hypertension, prior CVA , HL, copd, CKD, bph, chronic iron deficiency anemia who p/w worsened cough, sob , hypotension and noted to have profound anemia. Pre-operative clearance/anemia. -hgb remains stable since prbcs transfused -RCRI of 3 with decompensated chf and low bp here. Has estimated high risk for jd-operative CV complications. Would optimize cardiac/pulmonary status if safe to delay endoscopy. still with decompensated heart failure at this time but improving. isch CMP (acute systolic CHF exacerbation) - Patient's weight actually stable as outpatient in past month. Possible pulmonary congestion on CXR. ddx infection. trace le edema. After lasix 80 mg IV in ER last night, cr improved, but sodium worsened. Now s/p 2 units of PRBC and lasix 40 mg IV x 1 yesterday 08/14 with improvement in sodium, worsened again overnight. - 08/15: Patient overall comfortable. Unable to accurately assess I/O's, weights --> holding diuresis today so that he will definitively be net positive tomorrow and can reassess hypernatremia tomorrow and hepatic congestion. If worsens then will resume IV lasix. Patient with significant rhonchi and wheezes on exam. Also with moderate ascites on u/s. Frequent nsvt on tele. These findings remain concerning for heart failure exacerbation. - 08/16: significant worsening of abdominal distension and edema without lasix yesterday. Initiating bid diuresis with lasix 80 mg IV BID. BMP this evening prior to second lasix dose to monitor sodium and potassium. Reluctant to add beta alondra while with active wheezes and unclear if he is decompensated. - 08/17: nsvt/ectopy improved with diuresis. Echo shows worsened RV function. Patient likely with acute decompensated HF and superimposed RV HF exacerbation. BUN rising. Will start milrinone to augment RV function and reduce pulmonary pressures. Con't bid lasix. -08/18: cont milrinone and iv lasix, cr stable today. cxr still with chf. -08/19: milrinone stopped yesterday due to hypotension. clinically seems less vol overloaded. cr stable. cont iv lasix. will check cxr tomorrow am to monitor progress. -08/20: bnp 13K here initially, up to 17K (prior range 2K-5K) no weights; ++JVD persists, renal fxn improving. cxr reviewed: improving vs prior, some chf changes persist. he is likely still signif volume overloaded; will increase lasix (to 80 iv TID), follow UOP (lakhwinder). if does not diurese well or becomes hypotensive, will need to resume milrinone with pressors (dopa if ventric ectopy can tolerate; otherwise vasopressin) - 08/21: still with ++ abdominal distension/ascites, early satiety, dependent edema and congestive changes on cxr. diuresed will on tid lasix, but sodium bumped. Will resume milrinone to augment RV contractility and decrease pulmonary pressures. Repeat bmp this afternoon to make sure sodium heading in right direction. con't strict I/O q shift. standing weights. telemetry monitoring. baseline sys bp's typically 100's, monitor for hypotension on milrinone. -08/22: cr stable, wt down, symptomatically improved. na and bicarb rising, may be reaching a dry wt. will cont same iv lasix/milrinone today and monitor chem7 tomorrow to see if need to adjust diuretics further. -08/23-5: wt continues to decrease, na better. cr stable. cont same milrinone/ lasix until wt plateaus or signs of getting dry -08/25: no further weight decline (134 lbs), office wts 148-157 over past 3 mo; BP trend down (70s-90s overnight); ongoing massive EJ distension, +rales/ wheezing, rpt cxr not improved signif since admit (persistent L effusion and mild pulm edema) -suspect he remains volume up--started vasopressin low dose (0.03 u/min-i.e. 0.2 u/hr) for bp support, same lasix 80 iv tid -08/26: keane was yest but pt urinated voluminously to lasix (per RN)--keane back in with 1200cc UOP so far today since midnight; BP overall slightly improved ( mostly 100-110s systolic)--same lasix 80 iv tid, give dose of metolazone 2.5mg x1 today -08/27: 2000 cc UOP yesterday; wt trending down (though bedscale wts); CXR has not improved much since here (slight improvement R base); bun/creat trending up slightly. This is the first time in at least 7 days that pt reports sob improving, and there is no wheezing on exam; likewise, his JVD is finally below angle of the jaw;cxr ? slightly better (overpenetrated film). Continue same milrinone, vasopressing and lasix 80 iv tid with metolazone 2.5 x 1 today, rpt cxr in am. (suspect severe TR will leave him with residual very high JVD and right sided CHF tendencies, but would like to see lungs clear radiographically and sob/wheezing improve) - 08/28: CXR improved today. BMP stable (na slightly inc again). Will cut back to bid lasix today with metolazone x 1. Will wean milrinone to 0.2. Goal is 1L negative over next 24 hrs instead of 2L. Repeat bmp in afternoon --> Will reevaluate this afternoon and consider weaning vasopressin over night and consider transition to PO diuretics tomorrow. -08/29: vol status stable, cr stable. Will begin transitioning to po med regimen. Dc milrinone today and then wean off vasopressin as bp allows. Will change to po lasix 80 bid for now and monitor vol status/cr to see if this dose needs to be adjusted -08/30: Now off milrinone. vol stable, cr stable. cxr improved. Cont lasix 80 bid po for now. titrate off vasopressin today. His baseline sbp is in 90s. -was not on bb, aceI at home due to prior side effects of hypotension, dizziness --> once off vasopressin will add low dose reno/bb if bp tolerates -office BiV followup/optimization with dr aparicio (if freq PVCs remain with BiV pacing frequency <90%, consider mexilitene or amio for PVC suppression to enhance [employer], in d/w EP) ascites, imaging evidence of cirrhosis: -? cardiac cirrhosis from right sided chf/severe TR -chf optimization as doing -defer ? further GI/liver eval to pmd/GI CAD s/p h/o CABG 2006 - holding ASA, plavix due to initial presentation of anemia requiring transfusion. If anti-platelets can be resumed, would consider resuming ASA alone. - no angina or signs acs h/o CVA: -was on ASA, plavix --> on hold as above. V Tach: - nsvt seen on prior ICD checks and on tele here as well. - electrolyte repletion prn as doing - con't telemetry monitoring. - will cont deferring BB while still on vasopressin with low bp - less PVCs on tele since stopping milrinone PAT/PSVT - brief episodes on tele here a.e. COPD: -On steroids, pulm following est crit care time 36min
[2016-08-30] MEDS: VASOPRESSIN 50 UNITS in SODIUM CHLORIDE 97.5 ML IVPB SCH (12:44)
--- NOTE | 2016-08-30 13:15 | PN ---
Teaching Attending Note Name of Resident: Chong Serna ATTENDING PHYSICIAN STATEMENT I saw and evaluated the patient. I reviewed the resident's note and discussed the case with the resident. I agree with the resident's findings and plan as documented. SUBJECTIVE: Patient seen and examined in the ICU. Vasopressin was just discontinued. Denies shortness of breath or chest pain. Remains on VM O2. Intake & Output 08/27/16 08/28/16 08/29/16 08/30/16 23:59 23:59 23:59 23:59 Intake Total 1214 1378 342.4 394 Output Total 3400 3400 3900 1100 Balance -2186 -2022 -3557.6 -706 Weight 128 lb 9.6 oz 123 lb 14.397 oz 124 lb 1.924 oz 123 lb 5 oz Last Vital Signs Temp Pulse Resp BP Pulse Ox 98.3 F 86 18 94/50 100 08/30/16 10:00 08/30/16 12:00 08/30/16 12:00 08/30/16 12:00 08/30/16 11:32 Active Medications Acetaminophen (Tylenol -) 650 mg PO Q6H PRN PRN Reason: FEVER OR PAIN Last Admin: 08/28/16 22:26 Dose: 650 mg Al Hydroxide/Mg Hydroxide (Mylanta Oral Suspension -) 30 ml PO Q6H PRN PRN Reason: DYSPEPSIA Last Admin: 08/30/16 09:12 Dose: 30 ml Albuterol/Ipratropium (Duoneb -) 1 amp NEB Q4H PRN PRN Reason: SHORTNESS OF BREATH Last Admin: 08/28/16 02:15 Dose: 1 amp Ascorbic Acid (Vitamin C -) 500 mg PO DAILY [facility] Last Admin: 08/30/16 09:12 Dose: 500 mg Atorvastatin Calcium (Lipitor -) 10 mg PO HS [facility] Last Admin: 08/29/16 21:51 Dose: 10 mg Chlorhexidine Gluconate (Hibiclens For Decolonization -) 1 applic TP [facility] Last Admin: 08/29/16 21:51 Dose: 1 applic Ferrous Sulfate (Feosol -) 325 mg PO DAILY [facility] Last Admin: 08/30/16 09:12 Dose: 325 mg Furosemide (Lasix -) 80 mg PO BID@0600,1400 [facility] Last Admin: 08/30/16 13:00 Dose: 80 mg Vasopressin 50 units/ Sodium (Chloride) 100 mls @ 4 mls/hr IVPB ASDIR [facility] PRN Reason: 2 UNITS/HR Last Admin: 08/30/16 12:44 Dose: Not Given Polyethylene Glycol (Miralax (For Daily Use) -) 17 gm PO DAILY [facility] Last Admin: 08/30/16 09:12 Dose: 17 gm Potassium Chloride (K-Dur -) 40 meq PO BID [facility] Last Admin: 08/30/16 09:12 Dose: 40 meq Prednisone (Deltasone -) 15 mg PO DAILY [facility] Last Admin: 08/30/16 09:20 Dose: 15 mg Ranitidine HCl (Zantac -) 150 mg PO BID [facility] Last Admin: 08/30/16 09:12 Dose: 150 mg Gen: Awake, mildly tachypneic at rest Heart: RRR Lung: bibasilar rales, no wheezing Abd: soft, nontender Ext: no edema Laboratory Results - last 24 hr 08/29/16 08/29/16 08/29/16 21:30 21:30 21:30 WBC RBC Hgb Hct MCV MCHC RDW Plt Count MPV Neutrophils % Lymphocytes % Monocytes % Eosinophils % Basophils % Puncture Site Right radial ABG pH 7.50 H ABG pCO2 at Pt Temp 52.0 H ABG pO2 at Pt Temp 62.6 L ABG HCO3 40.1 H* ABG O2 Sat (Measured) 92.7 ABG O2 Content 10.9 L ABG Base Excess 15.0 H Louis Test Positive O2 Delivery Device Venti mask Oxygen Flow Rate 40% PEEP 0.0 Sodium Potassium Chloride Carbon Dioxide Anion Gap BUN Creatinine Random Glucose Lactic Acid 1.560 Calcium Total Bilirubin 2.1 H Direct Bilirubin 1.5 H AST 23 ALT 18 Alkaline Phosphatase 174 H Total Protein 6.5 Albumin 2.3 L Total Amylase 45 08/30/16 08/30/16 08/30/16 05:20 05:20 05:20 WBC 17.4 H RBC 3.93 L Hgb 8.2 L Hct 28.8 L MCV 73.1 L MCHC 28.4 L RDW 29.5 H Plt Count 144 MPV 9.4 Neutrophils % 90.2 H Lymphocytes % 3.1 L D Monocytes % 6.0 Eosinophils % 0.4 Basophils % 0.3 Puncture Site ABG pH ABG pCO2 at Pt Temp ABG pO2 at Pt Temp ABG HCO3 ABG O2 Sat (Measured) ABG O2 Content ABG Base Excess Louis Test O2 Delivery Device Oxygen Flow Rate PEEP Sodium 148 H Potassium 3.5 Chloride 95 L Carbon Dioxide 41 H Anion Gap 12 BUN 61 H Creatinine 1.2 Random Glucose 124 H Lactic Acid Calcium 8.0 L Total Bilirubin 2.1 H Direct Bilirubin 1.6 H AST 20 ALT 15 Alkaline Phosphatase 164 H Total Protein 6.1 L Albumin 2.2 L Total Amylase ASSESSMENT AND PLAN: 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
[2016-08-30] MEDS ORDERED: VASOPRESSIN 50 UNITS in SODIUM CHLORIDE 97.5 ML IVPB SCH (16:05)
[2016-08-30] MEDS: ATORVASTATIN CA 10 MG TABLET (FP) PO SCH (22:02)
[2016-08-30] MEDS: CHLORHEXIDINE GLUCONATE 4% CLEANSER FOR DECOLONIZATION TP SCH (22:02)
[2016-08-31] MEDS: ACETAMINOPHEN 325 MG TABLET (FP) PO PRN (04:47)
[2016-08-31] MEDS: MAG HYDROX/AL HYDROX/SIMETH 30 ML UNIT-DOSE CUP PO PRN (04:48)
[2016-08-31] MEDS: FUROSEMIDE 40 MG TABLET (FP) PO SCH ×2 (06:03→14:30)
[2016-08-31 06:51] LABS: CALCIUM 8.2 mg/dL (8.5-10.1); COCKROFT - GAULT 33.38; CREATININE 1.5 mg/dL (0.7-1.3)
--- NOTE | 2016-08-31 08:52 | PN ---
Progress Note (short form) - Note Progress Note: SUBJECTIVE: Patient seen and examined in the ICU. Chart reviewed. Still short of breath. Off pressors and [place]. Denies chest pain. Patient is now DNR/DNI. OBJECTIVE: Vital Signs 08/31/16 08/31/16 08/31/16 02:00 04:00 06:00 Temperature 98.1 F Pulse Rate 74 84 77 Respiratory 23 25 H 16 Rate Blood Pressure 100/62 93/54 98/66 08/31/16 08:00 Temperature Pulse Rate 74 Respiratory 16 Rate Blood Pressure 95/61 Intake & Output 08/30/16 08/31/16 08/31/16 23:59 07:59 15:59 Intake Total 340 200 Output Total 300 550 Balance 40 -350 Weight 56.331 kg Intake: Oral 340 200 Output: Urine 300 550 Villaseñor 300 550 Other: Voiding Method Indwelling Catheter Bowel Movement No No Weight Measurement Method Built in [facility] Active Medications Acetaminophen (Tylenol -) 650 mg PO Q6H PRN PRN Reason: FEVER OR PAIN Last Admin: 08/31/16 04:47 Dose: 650 mg Al Hydroxide/Mg Hydroxide (Mylanta Oral Suspension -) 30 ml PO Q6H PRN PRN Reason: DYSPEPSIA Last Admin: 08/31/16 04:48 Dose: 30 ml Albuterol/Ipratropium (Duoneb -) 1 amp NEB Q4H PRN PRN Reason: SHORTNESS OF BREATH Ascorbic Acid (Vitamin C -) 500 mg PO DAILY [facility] Atorvastatin Calcium (Lipitor -) 10 mg PO HS [facility] Last Admin: 08/30/16 22:02 Dose: 10 mg Chlorhexidine Gluconate (Hibiclens For Decolonization -) 1 applic TP HS [facility] Last Admin: 08/30/16 22:02 Dose: 1 applic Ferrous Sulfate (Feosol -) 325 mg PO DAILY [facility] Furosemide (Lasix -) 80 mg PO BID@0600,1400 [facility] Last Admin: 08/31/16 06:03 Dose: 80 mg Vasopressin 50 units/ Sodium (Chloride) 100 mls @ 4 mls/hr IVPB [facility] PRN Reason: 2 UNITS/HR Last Admin: 08/30/16 22:02 Dose: Not Given Polyethylene Glycol (Miralax (For Daily Use) -) 17 gm PO DAILY [facility] Potassium Chloride (K-Dur -) 40 meq PO BID [facility] Last Admin: 08/30/16 22:02 Dose: 40 meq Prednisone (Deltasone -) 15 mg PO DAILY [facility] Ranitidine HCl (Zantac -) 150 mg PO BID [facility] Last Admin: 08/30/16 22:02 Dose: 150 mg CBC, BMP 08/30/16 05:20 08/31/16 05:15 Laboratory Results - last 24 hr 08/31/16 08/31/16 05:15 05:15 Sodium 149 H Potassium 4.2 Chloride 96 L Carbon Dioxide 40 H Anion Gap 13 BUN 68 H Creatinine 1.5 H D Random Glucose 140 H Calcium 8.2 L Total Bilirubin Cancelled Direct Bilirubin Cancelled AST Cancelled ALT Cancelled Alkaline Phosphatase Cancelled Total Protein Cancelled Albumin Cancelled PHYSICAL EXAMINATION: Constitutional: Yes: No Distress Cardiovascular: Yes: Regular Rate and Rhythm, Murmur Respiratory: Yes: Diminished, Rales at bases. Gastrointestinal: Yes: Normal Bowel Sounds, Soft. No: Distention, Tenderness Edema: No ASSESSMENT & PLAN: - Continue present care. - Condition remains guarded. - I also discussed with Service Center Manager, Dr. Félix Alston today. - May transfer to Telemetry. - Discussed with nursing staff also. - Will follow. Documentation prepared by Darlene Manuel, acting as a medical insurance collector for Purnima Driscoll MD. <Darlene Manuel - Last Filed: 08/31/16 10:20> Problem List - Problems (1) Anemia Code(s): D64.9 - ANEMIA, UNSPECIFIED Qualifiers: Anemia type: unspecified type Qualified Code(s): D64.9 - Anemia, unspecified (2) CHF (congestive heart failure) Code(s): I50.9 - HEART FAILURE, UNSPECIFIED Qualifiers: Congestive heart failure type: combined Congestive heart failure chronicity: acute on chronic Qualified Code(s): I50.43 - Acute on chronic combined systolic (congestive) and diastolic (congestive) heart failure (3) CKD (chronic kidney disease) Code(s): N18.9 - CHRONIC KIDNEY DISEASE, UNSPECIFIED Qualifiers: Chronic kidney disease stage: unspecified stage Qualified Code(s): N18.9 - Chronic kidney disease, unspecified (4) COPD (chronic obstructive pulmonary disease) Code(s): J44.9 - CHRONIC OBSTRUCTIVE PULMONARY DISEASE, UNSPECIFIED (5) Hypotension Code(s): I95.9 - HYPOTENSION, UNSPECIFIED (6) Lactic acid blood increased Code(s): R79.89 - OTHER SPECIFIED ABNORMAL FINDINGS OF BLOOD CHEMISTRY (7) Pacemaker Code(s): Z95.0 - PRESENCE OF CARDIAC PACEMAKER <Purnima Driscoll - Last Filed: 08/31/16 08:52>
[2016-08-31 09:54] LABS: ALBUMIN 2.4 g/dl (3.4-5.0); BILIRUBIN,DIRECT 1.4 mg/dL (0.0-0.2)
[2016-08-31 09:55] LABS: BILIRUBIN,TOTAL 1.8 mg/dL (0.2-1.0); TOT PROT 6.7 g/dl (6.4-8.2)
[2016-08-31] MEDS ORDERED: predniSONE 5 MG TABLET (UD) PO SCH (10:00)
[2016-08-31] MEDS: POTASSIUM CHLORIDE TABS 20 MEQ TABLET.ER (FP) PO SCH ×2 (10:27→23:20)
[2016-08-31] MEDS: RANITIDINE HCL 150 MG TABLET (FP) PO SCH ×2 (10:27→23:37)
[2016-08-31] MEDS: POLYETHYLENE GLYCOL 3350 119 GM BTL PO SCH (10:28)
[2016-08-31] MEDS: ASCORBIC ACID 500 MG TABLET (FP) PO SCH (10:28)
[2016-08-31] MEDS: FERROUS SO4 325 MG TABLET (FP) PO SCH (10:28)
--- NOTE | 2016-08-31 11:30 | PN ---
Progress Note (short form) - Note Progress Note: CC: anemia/chf exacerbation, no cigs S: off milrinone and vasopressin now. no cp, palps, dizziness, sob, orthopnea , le edema improved as well; no abd distension; feeling better overall, eating well Vital Signs Temp 98.1 F 08/31/16 04:00 Pulse 79 08/31/16 10:19 Resp 16 08/31/16 08:00 BP 95/61 08/31/16 08:00 Pulse Ox 94 L 08/31/16 10:19 Intake & Output 08/30/16 08/30/16 08/31/16 11:59 23:59 11:59 Intake Total 394 340 200 Output Total 600 800 550 Balance -206 -460 -350 Weight 123 lb 5 oz 124 lb 3 oz Intake: IV 54 Pitressin - 50 Units In 54 Normal Saline - 97.5 ml @ 2 UNITS/HR 4 mls/hr IVPB ASDIR [facility] Rx#: [id number] Milrinone 20Mg/100Ml Ivpb 0 - 100 ml @ 0.2 MCG/KG/ MIN 3.729 mls/hr IVPB TITR [facility] Rx#:[id number] Oral 340 340 200 Output: Urine 600 800 550 Keane 600 800 550 Other: Voiding Method Indwelling Catheter Indwelling Catheter Bowel Movement No No No Weight Measurement Method [facility] Constitutional: Yes: Well Nourished, No Distress Eyes: No: Sclera Icterus Respiratory: Yes: scattered rhonchi No: Accessory Muscle Use, Wheezes Gastrointestinal: Yes: Normal Bowel Sounds. no Distention, No Hepatomegaly, Palpable Mass, Tenderness Cardiovascular: Yes: Regular Rate and Rhythm (soft heart sounds) Heart Sounds: Yes: S1, S2. No: Gallop Murmur: 2/6 high pitched sys murmur at lsb and apex Extremities: No: Cold, Cyanosis Edema: no le edema/c/c Peripheral Pulses:+dp pt Integumentary: No: Jaundice diaphoresis Neurological: Yes: Alert, appropriate Psychiatric: No: Agitated Current Medications Generic Name Dose Route Start Last Admin Trade Name Freq PRN Reason Stop Dose Admin Acetaminophen 650 mg 08/30/16 16:05 08/31/16 04:47 Tylenol - PO 650 mg Q6H PRN Administration FEVER OR PAIN Al Hydroxide/Mg Hydroxide 30 ml 08/30/16 16:05 08/31/16 04:48 Mylanta Oral Suspension - PO 30 ml Q6H PRN Administration DYSPEPSIA Albuterol/Ipratropium 1 amp 08/30/16 16:05 Duoneb - NEB Q4H PRN SHORTNESS OF BREATH Ascorbic Acid 500 mg 08/31/16 10:00 08/31/16 10:28 Vitamin C - PO 500 mg DAILY [facility] Administration Atorvastatin Calcium 10 mg 08/30/16 22:00 08/30/16 22:02 Lipitor - PO 10 mg HS [facility] Administration Chlorhexidine Gluconate 1 applic 08/30/16 22:00 08/30/16 22:02 Hibiclens For Decolonization - TP 1 applic HS [facility] Administration Ferrous Sulfate 325 mg 08/31/16 10:00 08/31/16 10:28 Feosol - PO 325 mg DAILY [facility] Administration Furosemide 80 mg 08/31/16 06:00 08/31/16 06:03 Lasix - PO 80 mg BID@0600,1400 [facility] Administration Polyethylene Glycol 17 gm 08/31/16 10:00 08/31/16 10:28 Miralax (For Daily Use) - PO 17 gm DAILY [facility] Administration Potassium Chloride 40 meq 08/30/16 22:00 08/31/16 10:27 K-Dur - PO 40 meq BID [facility] Administration Prednisone 15 mg 08/31/16 10:00 08/31/16 10:27 Deltasone - PO 15 mg DAILY [facility] Administration Ranitidine HCl 150 mg 08/30/16 22:00 08/31/16 10:27 Zantac - PO 150 mg BID [facility] Administration Laboratory Last Values WBC 17.4 K/mm3 (4.0-10.0) H 08/30/16 05:20 RBC 3.93 M/mm3 (4.00-5.60) L 08/30/16 05:20 Hgb 8.2 GM/dL (11.7-16.9) L 08/30/16 05:20 Hct 28.8 % (35.4-49) L 08/30/16 05:20 MCV 73.1 fl (80-96) L 08/30/16 05:20 MCHC 28.4 g/dl (32.0-35.9) L 08/30/16 05:20 RDW 29.5 % (11.9-15.9) H 08/30/16 05:20 Plt Count 144 K/MM3 (134-434) 08/30/16 05:20 MPV 9.4 fl (7.5-11.1) 08/30/16 05:20 Neutrophils % 90.2 % (42.8-82.8) H 08/30/16 05:20 Lymphocytes % 3.1 % (8-40) L D 08/30/16 05:20 Monocytes % 6.0 % (3.8-10.2) 08/30/16 05:20 Eosinophils % 0.4 % (0-4.5) 08/30/16 05:20 Basophils % 0.3 % (0-2.0) 08/30/16 05:20 Differential Comment Manual diff done 08/27/16 05:30 Platelet Estimate Adequate (NORMAL) 08/27/16 05:30 Platelet Comment No clumping noted 08/19/16 05:27 Polychromasia 1+ 08/19/16 05:27 Hypochromic-Microcytic 3+ 08/27/16 05:30 Poikilocytosis 1+ 08/19/16 05:27 Basophilic Stippling Few 08/19/16 05:27 Anisocytosis 3+ 08/27/16 05:30 Microcytosis 2+ 08/27/16 05:30 Macrocytosis Few 08/27/16 05:30 Target Cells 3+ 08/27/16 05:30 Ovalocytes 1+ 08/19/16 05:27 INR 1.66 (0.82-1.09) H 08/14/16 07:55 PTT (Actin FS) 30.9 SECONDS (26.9-34.4) 08/13/16 15:45 Puncture Site Right radial 08/29/16 21:30 ABG pH 7.50 (7.35-7.45) H 08/29/16 21:30 ABG pCO2 at Pt Temp 52.0 mmHg (35-45) H 08/29/16 21:30 ABG pO2 at Pt Temp 62.6 mmHg (70-100) L 08/29/16 21:30 ABG HCO3 40.1 meq/L (22-26) H* 08/29/16 21:30 ABG O2 Sat (Measured) 92.7 % (90-98.9) 08/29/16 21:30 ABG O2 Content 10.9 % vol (15-22) L 08/29/16 21:30 ABG Base Excess 15.0 meq/l (-2-2) H 08/29/16 21:30 Louis Test Positive 08/29/16 21:30 VBG pH 7.30 (7.32-7.42) L 08/13/16 15:54 POC VBG pCO2 49.2 mmHg (38-52) 08/13/16 15:54 POC VBG pO2 25.4 mmHg (28-48) L 08/13/16 15:54 Mixed VBG HCO3 23.4 meq/L (19-25) 08/13/16 15:54 O2 Delivery Device Venti mask 08/29/16 21:30 Oxygen Flow Rate 40% 08/29/16 21:30 PEEP 0.0 cmH2O 08/29/16 21:30 Sodium 149 mmol/L (136-145) H 08/31/16 05:15 Potassium 4.2 mmol/L (3.5-5.1) 08/31/16 05:15 Chloride 96 mmol/L (98-107) L 08/31/16 05:15 Carbon Dioxide 40 mmol/L (21-32) H 08/31/16 05:15 Anion Gap 13 (8-16) 08/31/16 05:15 BUN 68 mg/dL (7-18) H 08/31/16 05:15 Creatinine 1.5 mg/dL (0.7-1.3) H D 08/31/16 05:15 Creat Clearance w eGFR 53.67 (>60) 08/25/16 05:35 Random Glucose 140 mg/dL (74-106) H 08/31/16 05:15 Lactic Acid 1.560 mmol/L (0.4-2.0) 08/29/16 21:30 Calcium 8.2 mg/dL (8.5-10.1) L 08/31/16 05:15 Phosphorus 3.7 mg/dL (2.5-4.9) 08/20/16 05:20 Magnesium 2.5 mg/dL (1.8-2.4) H 08/27/16 05:30 Iron 15 ug/dL (38-169) L 08/13/16 15:50 TIBC 305 ug/dL (250-450) 08/13/16 15:50 Iron Saturation 5 % (15-55) L 08/13/16 15:50 Ferritin 28.597 ng/ml (16.4-293.9) 08/13/16 12:00 Total Bilirubin 1.8 mg/dL (0.2-1.0) H 08/31/16 05:15 Direct Bilirubin 1.4 mg/dL (0.0-0.2) H 08/31/16 05:15 AST 21 U/L (15-37) 08/31/16 05:15 ALT 18 U/L (12-78) 08/31/16 05:15 Alkaline Phosphatase 173 U/L (45-117) H 08/31/16 05:15 Creatine Kinase 67 IU/L (39-308) 08/13/16 15:45 Troponin I 0.06 ng/ml (0.00-0.05) H D 08/13/16 15:45 B-Natriuretic Peptide 11065.44 pg/ml (5-450) H 08/16/16 20:30 Total Protein 6.7 g/dl (6.4-8.2) 08/31/16 05:15 Albumin 2.4 g/dl (3.4-5.0) L 08/31/16 05:15 Total Amylase 45 U/L (25-115) 08/29/16 21:30 TSH 2.00 uIU/ml (0.358-3.74) 08/13/16 12:00 Stool Occult Blood Negative (NEGATIVE) 08/13/16 17:00 Blood Type A POSITIVE 08/13/16 15:45 Antibody Screen Negative 08/13/16 15:45 Crossmatch See Detail 08/13/16 15:45 tele: v-paced, occ pvcs, no nsvt Abd u/a: moderate amount of ascites in upper abdomen. Liver and spleen findings c/w cirrhosis. cath 08/02 all grafts patent (self to lad, svg to lcx, svg to rpda) Echo 07/2016 (this admit): mod lve, sev reduced LV fn (global). mild rve with mild hypo (severe TR, intrinsic RV fn likely more depressed), 1+ connie. 1+ mr, severe tr, mod phtn, pl effusion Echo 07/2015: sev lve, sev reduced lvef (global). grade 2 diastolic dysfunction. nl RV. mild connie. dilated ivc. mod mr, mod-sev tr, sev phtn, mild pr. Echo 08/03: sev LVE with severe decr EF; mild RV dil with moderate hypo; mod MR/ TR; RVSP >60 cxr: no chf, ?left eff est crit care time 35min a/p: 76 yo recent smoker (quit 6 mo ago) with h/o CAD s/p CABG, ischemic CM with EF 25% s/p BiVICD with secondary severe pulmonary hypertension, prior CVA , HL, copd, CKD, bph, chronic iron deficiency anemia who p/w worsened cough, sob , hypotension and noted to have profound anemia. Pre-operative clearance/anemia. -hgb remains stable since prbcs transfused -RCRI of 3 with decompensated chf and low bp here. Has estimated high risk for jd-operative CV complications. Would continue to optimize cardiac/pulmonary status for now. isch CMP (acute systolic CHF exacerbation) - Patient's weight actually stable as outpatient in past month. Possible pulmonary congestion on CXR. ddx infection. trace le edema. After lasix 80 mg IV in ER last night, cr improved, but sodium worsened. Now s/p 2 units of PRBC and lasix 40 mg IV x 1 yesterday 08/14 with improvement in sodium, worsened again overnight. - 08/15: Patient overall comfortable. Unable to accurately assess I/O's, weights --> holding diuresis today so that he will definitively be net positive tomorrow and can reassess hypernatremia tomorrow and hepatic congestion. If worsens then will resume IV lasix. Patient with significant rhonchi and wheezes on exam. Also with moderate ascites on u/s. Frequent nsvt on tele. These findings remain concerning for heart failure exacerbation. - 08/16: significant worsening of abdominal distension and edema without lasix yesterday. Initiating bid diuresis with lasix 80 mg IV BID. BMP this evening prior to second lasix dose to monitor sodium and potassium. Reluctant to add beta alondra while with active wheezes and unclear if he is decompensated. - 08/17: nsvt/ectopy improved with diuresis. Echo shows worsened RV function. Patient likely with acute decompensated HF and superimposed RV HF exacerbation. BUN rising. Will start milrinone to augment RV function and reduce pulmonary pressures. Con't bid lasix. -08/18: cont milrinone and iv lasix, cr stable today. cxr still with chf. -08/19: milrinone stopped yesterday due to hypotension. clinically seems less vol overloaded. cr stable. cont iv lasix. will check cxr tomorrow am to monitor progress. -08/20: bnp 13K here initially, up to 17K (prior range 2K-5K) no weights; ++JVD persists, renal fxn improving. cxr reviewed: improving vs prior, some chf changes persist. he is likely still signif volume overloaded; will increase lasix (to 80 iv TID), follow UOP (lakhwinder). if does not diurese well or becomes hypotensive, will need to resume milrinone with pressors (dopa if ventric ectopy can tolerate; otherwise vasopressin) - 08/21: still with ++ abdominal distension/ascites, early satiety, dependent edema and congestive changes on cxr. diuresed will on tid lasix, but sodium bumped. Will resume milrinone to augment RV contractility and decrease pulmonary pressures. Repeat bmp this afternoon to make sure sodium heading in right direction. con't strict I/O q shift. standing weights. telemetry monitoring. baseline sys bp's typically 100's, monitor for hypotension on milrinone. -08/22: cr stable, wt down, symptomatically improved. na and bicarb rising, may be reaching a dry wt. will cont same iv lasix/milrinone today and monitor chem7 tomorrow to see if need to adjust diuretics further. -08/23-5: wt continues to decrease, na better. cr stable. cont same milrinone/ lasix until wt plateaus or signs of getting dry -08/25: no further weight decline (134 lbs), office wts 148-157 over past 3 mo; BP trend down (70s-90s overnight); ongoing massive EJ distension, +rales/ wheezing, rpt cxr not improved signif since admit (persistent L effusion and mild pulm edema) -suspect he remains volume up--started vasopressin low dose (0.03 u/min-i.e. 0.2 u/hr) for bp support, same lasix 80 iv tid -08/26: keane was yest but pt urinated voluminously to lasix (per RN)--keane back in with 1200cc UOP so far today since midnight; BP overall slightly improved ( mostly 100-110s systolic)--same lasix 80 iv tid, give dose of metolazone 2.5mg x1 today -08/27: 2000 cc UOP yesterday; wt trending down (though bedscale wts); CXR has not improved much since here (slight improvement R base); bun/creat trending up slightly. This is the first time in at least 7 days that pt reports sob improving, and there is no wheezing on exam; likewise, his JVD is finally below angle of the jaw;cxr ? slightly better (overpenetrated film). Continue same milrinone, vasopressing and lasix 80 iv tid with metolazone 2.5 x 1 today, rpt cxr in am. (suspect severe TR will leave him with residual very high JVD and right sided CHF tendencies, but would like to see lungs clear radiographically and sob/wheezing improve) - 08/28: CXR improved today. BMP stable (na slightly inc again). Will cut back to bid lasix today with metolazone x 1. Will wean milrinone to 0.2. Goal is 1L negative over next 24 hrs instead of 2L. Repeat bmp in afternoon --> Will reevaluate this afternoon and consider weaning vasopressin over night and consider transition to PO diuretics tomorrow. -08/29: vol status stable, cr stable. Will begin transitioning to po med regimen. Dc milrinone today and then wean off vasopressin as bp allows. Will change to po lasix 80 bid for now and monitor vol status/cr to see if this dose needs to be adjusted -08/30: Now off milrinone. vol stable, cr stable. cxr improved. Cont lasix 80 bid po for now. titrate off vasopressin today. -08/31: Now off both milrinone and vasopressin. SBP in 90s which is his baseline. Cont lasix 80 po bid. Wt stable today but cr up a bit, will continue to monitor vol status/cr trend to see if need to increase diuretic dose. -was not on bb, aceI at home due to prior side effects of hypotension, dizziness --> once off vasopressin will add low dose reno/bb if bp tolerates -office BiV followup/optimization with dr aparicio (if freq PVCs remain with BiV pacing frequency <90%, consider mexilitene or amio for PVC suppression to enhance [employer]ANCE CLAIMS [employer]IST, in d/w EP) ascites, imaging evidence of cirrhosis: -? cardiac cirrhosis from right sided chf/severe TR -chf optimization as doing -further GI/liver eval to pmd/GI CAD s/p h/o CABG 2006 - holding ASA, plavix due to initial presentation of anemia requiring transfusion. If anti-platelets can be resumed, would consider resuming ASA alone. - no angina or signs acs h/o CVA: -was on ASA, plavix --> on hold as above. V Tach: - nsvt seen on prior ICD checks and on tele here as well. - electrolyte repletion prn as doing - con't telemetry monitoring. - will cont deferring BB while still on vasopressin with low bp - less PVCs on tele since stopping milrinone PAT/PSVT - brief episodes on tele here a.e. COPD: -On steroids, pulm following
--- NOTE | 2016-08-31 13:32 | PN ---
Teaching Attending Note Name of Resident: Chong Serna ATTENDING PHYSICIAN STATEMENT I saw and evaluated the patient. I reviewed the resident's note and discussed the case with the resident. I agree with the resident's findings and plan as documented. SUBJECTIVE: Patient seen and examined in the ICU. Remains. Denies shortness of breath or chest pain. Remains on VM O2. Intake & Output 08/28/16 08/29/16 08/30/16 08/31/16 23:59 23:59 23:59 23:59 Intake Total 1378 342.4 734 200 Output Total 3400 3900 1400 550 Balance -2022 -3557.6 -666 -350 Weight 123 lb 14.397 oz 124 lb 1.924 oz 123 lb 5 oz 124 lb 3 oz Last Vital Signs Temp Pulse Resp BP Pulse Ox 98.1 F 79 16 102/78 94 L 08/31/16 04:00 08/31/16 10:19 08/31/16 10:00 08/31/16 10:00 08/31/16 10:19 Active Medications Acetaminophen (Tylenol -) 650 mg PO Q6H PRN PRN Reason: FEVER OR PAIN Last Admin: 08/31/16 04:47 Dose: 650 mg Al Hydroxide/Mg Hydroxide (Mylanta Oral Suspension -) 30 ml PO Q6H PRN PRN Reason: DYSPEPSIA Last Admin: 08/31/16 04:48 Dose: 30 ml Albuterol/Ipratropium (Duoneb -) 1 amp NEB Q4H PRN PRN Reason: SHORTNESS OF BREATH Ascorbic Acid (Vitamin C -) 500 mg PO DAILY [facility] Last Admin: 08/31/16 10:28 Dose: 500 mg Atorvastatin Calcium (Lipitor -) 10 mg PO HS [facility] Last Admin: 08/30/16 22:02 Dose: 10 mg Chlorhexidine Gluconate (Hibiclens For Decolonization -) 1 applic TP HS [facility] Last Admin: 08/30/16 22:02 Dose: 1 applic Ferrous Sulfate (Feosol -) 325 mg PO DAILY [facility] Last Admin: 08/31/16 10:28 Dose: 325 mg Furosemide (Lasix -) 80 mg PO BID@0600,1400 [facility] Last Admin: 08/31/16 06:03 Dose: 80 mg Polyethylene Glycol (Miralax (For Daily Use) -) 17 gm PO DAILY [facility] Last Admin: 08/31/16 10:28 Dose: 17 gm Potassium Chloride (K-Dur -) 40 meq PO BID [facility] Last Admin: 08/31/16 10:27 Dose: 40 meq Prednisone (Deltasone -) 15 mg PO DAILY [facility] Last Admin: 08/31/16 10:27 Dose: 15 mg Ranitidine HCl (Zantac -) 150 mg PO BID [facility] Last Admin: 08/31/16 10:27 Dose: 150 mg Gen: Awake, mildly tachypneic at rest Heart: RRR Lung: bibasilar rales, no wheezing Abd: soft, nontender Ext: no edema Laboratory Results - last 24 hr 08/31/16 08/31/16 05:15 05:15 Sodium 149 H Potassium 4.2 Chloride 96 L Carbon Dioxide 40 H Anion Gap 13 BUN 68 H Creatinine 1.5 H D Random Glucose 140 H Calcium 8.2 L Total Bilirubin 1.8 H Cancelled Direct Bilirubin 1.4 H Cancelled AST 21 Cancelled ALT 18 Cancelled Alkaline Phosphatase 173 H Cancelled Total Protein 6.7 Cancelled Albumin 2.4 L Cancelled ASSESSMENT AND PLAN: 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
--- NOTE | 2016-08-31 15:13 | PN ---
Physical Exam: SUBJECTIVE: Patient seen and examined. calm and cooperative. says he has no complaints. thinks he is in a evangelical. OBJECTIVE: Vital Signs Period Temp Pulse Resp BP Sys/Vega Pulse Ox Last 24 Hr 98.0 F-98.4 F 74-84 16-25 87-104/52-78 94-100 GENERAL: thin, elderly man. the patient is awake, alert, and oriented to person , birthday, not place or date. in no acute distress. EYES: extraocular movements intact, conjunctiva clear. ENT: nasal cannula in place, oropharynx clear without exudates/erythema, edentulism, dry mucous membranes. NECK: Trachea midline supple. CHEST: well-healed midline sternal scar LUNGS: ctab, no accessory muscle use, no wheezes, no crackles, diffuse rales. HEART: systolic murmur in apex. s1, s2. ABDOMEN: Soft, nontender, not distended, normoactive bowel sounds, no guarding. no suprapubic fullness/no ttp. EXTREMITIES: 2+ pulses, warm, well-perfused, no edema. no calf tenderness NEUROLOGICAL: Normal speech, facial symmetry. Laboratory Results - last 24 hr 08/31/16 08/31/16 05:15 05:15 Sodium 149 H Potassium 4.2 Chloride 96 L Carbon Dioxide 40 H Anion Gap 13 BUN 68 H Creatinine 1.5 H D Random Glucose 140 H Calcium 8.2 L Total Bilirubin 1.8 H Cancelled Direct Bilirubin 1.4 H Cancelled AST 21 Cancelled ALT 18 Cancelled Alkaline Phosphatase 173 H Cancelled Total Protein 6.7 Cancelled Albumin 2.4 L Cancelled Active Medications Generic Name Dose Route Start Last Admin Trade Name Freq PRN Reason Stop Dose Admin Acetaminophen 650 mg 08/30/16 16:05 08/31/16 04:47 Tylenol - PO 650 mg Q6H PRN Administration FEVER OR PAIN Al Hydroxide/Mg Hydroxide 30 ml 08/30/16 16:05 08/31/16 04:48 Mylanta Oral Suspension - PO 30 ml Q6H PRN Administration DYSPEPSIA Albuterol/Ipratropium 1 amp 08/30/16 16:05 Duoneb - NEB Q4H PRN SHORTNESS OF BREATH Ascorbic Acid 500 mg 08/31/16 10:00 08/31/16 10:28 Vitamin C - PO 500 mg DAILY [facility] Administration Atorvastatin Calcium 10 mg 08/30/16 22:00 08/30/16 22:02 Lipitor - PO 10 mg HS [facility] Administration Chlorhexidine Gluconate 1 applic 08/30/16 22:00 08/30/16 22:02 Hibiclens For Decolonization - TP 1 applic HS [facility] Administration Ferrous Sulfate 325 mg 08/31/16 10:00 08/31/16 10:28 Feosol - PO 325 mg DAILY [facility] Administration Furosemide 80 mg 08/31/16 06:00 08/31/16 06:03 Lasix - PO 80 mg BID@0600,1400 [facility] Administration Polyethylene Glycol 17 gm 08/31/16 10:00 08/31/16 10:28 Miralax (For Daily Use) - PO 17 gm DAILY [facility] Administration Potassium Chloride 40 meq 08/30/16 22:00 08/31/16 10:27 K-Dur - PO 40 meq BID [facility] Administration Prednisone 15 mg 08/31/16 10:00 08/31/16 10:27 Deltasone - PO 15 mg DAILY [facility] Administration Ranitidine HCl 150 mg 08/30/16 22:00 08/31/16 10:27 Zantac - PO 150 mg BID [facility] Administration ASSESSMENT/PLAN: 76 yr old man with COPD, CHF, CKD, CAD s/p CABG, s/p biventricular pacemaker, CVA with residual left sided weakness, HTN, pulmonary HTN, HLD, current smoker presented to SOB/cough admitted to ICU for symptomatic anemia and hypotension. - pending telemetry bed #Cardiovascular - acute exacerbation of systolic CHF - improved, baseline SBP 90's -- pressors dc/d, duiretics transitioned to po -- lasix 80mg po BID -- hold BB -- keane in place, daily weights, net negative I&O, Pulmonary - Prednisone 15mg po daily, decreased from 20mg(6 days) -- day 10 -- prednisone not listed in home meds, can taper off slowly - nasal cannula 4lpm, maintain sat >90% Neurologic calm and cooperative, awake and alert orientation has been labile, continue to orient daily Gastrointestinal ascitis and cirrhosis noted on abdominal u/s, likely from pulmonary HTN/CHF miralax 17gm po for constipation ranitidine 150 mg po bid Renal sodium trending up, likely due to aggressive diuresis. Cr improved today aggressive electrolyte repletion closely monitor I&O, BUN/Cr given aggressive diuresis Hematologic CLAIR s/p 2 units prbc's, H/H currently stable ferrous sulfate 325 mg po daily + Vitamin C leukocytosis likely from prolonged steroid use, continue to trend Muscuskeletal Physical therapy Diet: low fat Na+ controlled DVT; b/l SCD's Dispo: pt bp and respiratory status improving, may be monitored on telemetry. Code Status: DNR/DNI Visit type - Emergency Visit Emergency Visit: No - New Patient This patient is new to me today: No - Critical Care Critical Care patient: Yes Total Critical Care Time (in minutes): 38 Critical Care Statement: The care of this patient involved high complexity decision making to prevent further life threatening deterioration of the patient 's condition and/or to evalute & treat vital organ system(s) failure or risk of failure.
[2016-08-31] MEDS: ATORVASTATIN CA 10 MG TABLET (FP) PO SCH (23:20)
[2016-08-31] MEDS: CHLORHEXIDINE GLUCONATE 4% CLEANSER FOR DECOLONIZATION TP SCH (23:37)
[2016-09-01] MEDS: FUROSEMIDE 40 MG TABLET (FP) PO SCH (05:44)
[2016-09-01 08:45] LABS: CALCIUM 8.5 mg/dL (8.5-10.1); COCKROFT - GAULT 29.51; CREATININE 1.7 mg/dL (0.7-1.3)
[2016-09-01 08:47] LABS: ALBUMIN 2.2 g/dl (3.4-5.0)
[2016-09-01 08:50] LABS: BILIRUBIN,DIRECT 1.4 mg/dL (0.0-0.2); BILIRUBIN,TOTAL 1.8 mg/dL (0.2-1.0); TOT PROT 6.5 g/dl (6.4-8.2)
[2016-09-01] MEDS: POTASSIUM CHLORIDE TABS 20 MEQ TABLET.ER (FP) PO SCH ×2 (10:09→23:03)
[2016-09-01] MEDS: RANITIDINE HCL 150 MG TABLET (FP) PO SCH ×2 (10:09→23:02)
[2016-09-01] MEDS: FERROUS SO4 325 MG TABLET (FP) PO SCH (10:09)
[2016-09-01] MEDS: POLYETHYLENE GLYCOL 3350 119 GM BTL PO SCH (10:10)
[2016-09-01] MEDS: ASCORBIC ACID 500 MG TABLET (FP) PO SCH (10:10)
--- NOTE | 2016-09-01 10:29 | PN ---
Progress Note, Physician Chief Complaint: no distress No pain No SOB pt examined in Telemetry - Current Medication List Current Medications: Active Medications Acetaminophen (Tylenol -) 650 mg PO Q6H PRN PRN Reason: FEVER OR PAIN Last Admin: 08/31/16 04:47 Dose: 650 mg Al Hydroxide/Mg Hydroxide (Mylanta Oral Suspension -) 30 ml PO Q6H PRN PRN Reason: DYSPEPSIA Last Admin: 08/31/16 04:48 Dose: 30 ml Albuterol/Ipratropium (Duoneb -) 1 amp NEB Q4H PRN PRN Reason: SHORTNESS OF BREATH Ascorbic Acid (Vitamin C -) 500 mg PO DAILY [facility] Last Admin: 09/01/16 10:10 Dose: 500 mg Atorvastatin Calcium (Lipitor -) 10 mg PO [facility] Last Admin: 08/31/16 23:20 Dose: 10 mg Chlorhexidine Gluconate (Hibiclens For Decolonization -) 1 applic TP [facility] Last Admin: 08/31/16 23:37 Dose: Not Given Ferrous Sulfate (Feosol -) 325 mg PO DAILY [facility] Last Admin: 09/01/16 10:09 Dose: 325 mg Furosemide (Lasix -) 80 mg PO BID@0600,1400 [facility] Last Admin: 09/01/16 05:44 Dose: 80 mg Polyethylene Glycol (Miralax (For Daily Use) -) 17 gm PO DAILY [facility] Last Admin: 09/01/16 10:10 Dose: 17 gm Potassium Chloride (K-Dur -) 40 meq PO BID [facility] Last Admin: 09/01/16 10:09 Dose: 40 meq Ranitidine HCl (Zantac -) 150 mg PO BID [facility] Last Admin: 09/01/16 10:09 Dose: 150 mg - Objective Vital Signs: Vital Signs Temperature 98.5 F 09/01/16 05:50 Pulse Rate 78 09/01/16 05:50 Respiratory Rate 20 09/01/16 05:50 Blood Pressure 101/67 09/01/16 05:50 O2 Sat by Pulse Oximetry (%) 94 L 08/31/16 22:00 Constitutional: Yes: No Distress Cardiovascular: Yes: Regular Rate and Rhythm, Murmur Respiratory: Yes: Diminished Gastrointestinal: Yes: Normal Bowel Sounds, Soft. No: Distention, Tenderness Edema: No Labs: CBC, BMP 08/30/16 05:20 09/01/16 05:40 INR, PTT INR 1.66 (0.82-1.09) H 08/14/16 07:55 Problem List - Problems (1) Anemia Code(s): D64.9 - ANEMIA, UNSPECIFIED Qualifiers: Anemia type: unspecified type Qualified Code(s): D64.9 - Anemia, unspecified (2) CHF (congestive heart failure) Code(s): I50.9 - HEART FAILURE, UNSPECIFIED Qualifiers: Congestive heart failure type: combined Congestive heart failure chronicity: acute on chronic Qualified Code(s): I50.43 - Acute on chronic combined systolic (congestive) and diastolic (congestive) heart failure (3) CKD (chronic kidney disease) Code(s): N18.9 - CHRONIC KIDNEY DISEASE, UNSPECIFIED Qualifiers: Chronic kidney disease stage: unspecified stage Qualified Code(s): N18.9 - Chronic kidney disease, unspecified (4) Hypotension Code(s): I95.9 - HYPOTENSION, UNSPECIFIED (5) CHF exacerbation Code(s): I50.9 - HEART FAILURE, UNSPECIFIED (6) COPD (chronic obstructive pulmonary disease) Code(s): J44.9 - CHRONIC OBSTRUCTIVE PULMONARY DISEASE, UNSPECIFIED Assessment/Plan PLAN On Lasix 80mg po BID--spoke with Cardiology-- creatinine elevated today-- will dc Lasix for now pt euvolemic Vasopressin dc, milrinone DC Hb stable -- no active GI bleed, EGD on hold for now renal function stable Nebs as needed PT eval BP monitoring OOB Pt is DNR/DNI
--- NOTE | 2016-09-01 10:42 | PN ---
Progress Note (short form) - Note Progress Note: CC: anemia/chf exacerbation, no cigs S: no cp, palps, dizziness, sob, orthopnea, le edema Vital Signs Temp 98.5 F 09/01/16 05:50 Pulse 78 09/01/16 05:50 Resp 20 09/01/16 05:50 BP 101/67 09/01/16 05:50 Pulse Ox 94 L 08/31/16 22:00 Intake & Output 08/31/16 08/31/16 09/01/16 11:59 23:59 11:59 Intake Total 200 450 120 Output Total 550 900 Balance -350 -450 120 Weight 124 lb 3 oz 124 lb 7 oz Intake: Oral 200 450 120 Output: Urine 550 900 Villaseñor 550 900 Other: Voiding Method Indwelling Catheter External Catheter Bowel Movement No Weight Measurement Method Built in Bedscale Patient Lift Scale Constitutional: Yes: No Distress Eyes: No: Sclera Icterus Respiratory: Yes: scattered rhonchi No: Accessory Muscle Use, Wheezes Gastrointestinal: Yes: Normal Bowel Sounds. no Distention, No Hepatomegaly, Palpable Mass, Tenderness Cardiovascular: Yes: Regular Rate and Rhythm (soft heart sounds) Heart Sounds: Yes: S1, S2. No: Gallop Murmur: 2/6 high pitched sys murmur at lsb and apex Extremities: No: Cold, Cyanosis Edema: no le edema/c/c Peripheral Pulses:+dp pt Integumentary: No: Jaundice diaphoresis Neurological: Yes: Alert, appropriate Psychiatric: No: Agitated Current Medications Generic Name Dose Route Start Last Admin Trade Name Freq PRN Reason Stop Dose Admin Acetaminophen 650 mg 08/30/16 16:05 08/31/16 04:47 Tylenol - PO 650 mg Q6H PRN Administration FEVER OR PAIN Al Hydroxide/Mg Hydroxide 30 ml 08/30/16 16:05 08/31/16 04:48 Mylanta Oral Suspension - PO 30 ml Q6H PRN Administration DYSPEPSIA Albuterol/Ipratropium 1 amp 08/30/16 16:05 Duoneb - NEB Q4H PRN SHORTNESS OF BREATH Ascorbic Acid 500 mg 08/31/16 10:00 09/01/16 10:10 Vitamin C - PO 500 mg DAILY [facility] Administration Atorvastatin Calcium 10 mg 08/30/16 22:00 08/31/16 23:20 Lipitor - PO 10 mg HS [facility] Administration Chlorhexidine Gluconate 1 applic 08/30/16 22:00 08/31/16 23:37 Hibiclens For Decolonization - TP Not Given HS [facility] Ferrous Sulfate 325 mg 08/31/16 10:00 09/01/16 10:09 Feosol - PO 325 mg DAILY [facility] Administration Polyethylene Glycol 17 gm 08/31/16 10:00 09/01/16 10:10 Miralax (For Daily Use) - PO 17 gm DAILY [facility] Administration Potassium Chloride 40 meq 08/30/16 22:00 09/01/16 10:09 K-Dur - PO 40 meq BID [facility] Administration Ranitidine HCl 150 mg 08/30/16 22:00 09/01/16 10:09 Zantac - PO 150 mg BID [facility] Administration Laboratory Last Values WBC 17.4 K/mm3 (4.0-10.0) H 08/30/16 05:20 RBC 3.93 M/mm3 (4.00-5.60) L 08/30/16 05:20 Hgb 8.2 GM/dL (11.7-16.9) L 08/30/16 05:20 Hct 28.8 % (35.4-49) L 08/30/16 05:20 MCV 73.1 fl (80-96) L 08/30/16 05:20 MCHC 28.4 g/dl (32.0-35.9) L 08/30/16 05:20 RDW 29.5 % (11.9-15.9) H 08/30/16 05:20 Plt Count 144 K/MM3 (134-434) 08/30/16 05:20 MPV 9.4 fl (7.5-11.1) 08/30/16 05:20 Neutrophils % 90.2 % (42.8-82.8) H 08/30/16 05:20 Lymphocytes % 3.1 % (8-40) L D 08/30/16 05:20 Monocytes % 6.0 % (3.8-10.2) 08/30/16 05:20 Eosinophils % 0.4 % (0-4.5) 08/30/16 05:20 Basophils % 0.3 % (0-2.0) 08/30/16 05:20 Differential Comment Manual diff done 08/27/16 05:30 Platelet Estimate Adequate (NORMAL) 08/27/16 05:30 Platelet Comment No clumping noted 08/19/16 05:27 Polychromasia 1+ 08/19/16 05:27 Hypochromic-Microcytic 3+ 08/27/16 05:30 Poikilocytosis 1+ 08/19/16 05:27 Basophilic Stippling Few 08/19/16 05:27 Anisocytosis 3+ 08/27/16 05:30 Microcytosis 2+ 08/27/16 05:30 Macrocytosis Few 08/27/16 05:30 Target Cells 3+ 08/27/16 05:30 Ovalocytes 1+ 08/19/16 05:27 INR 1.66 (0.82-1.09) H 08/14/16 07:55 PTT (Actin FS) 30.9 SECONDS (26.9-34.4) 08/13/16 15:45 Puncture Site Right radial 08/29/16 21:30 ABG pH 7.50 (7.35-7.45) H 08/29/16 21:30 ABG pCO2 at Pt Temp 52.0 mmHg (35-45) H 08/29/16 21:30 ABG pO2 at Pt Temp 62.6 mmHg (70-100) L 08/29/16 21:30 ABG HCO3 40.1 meq/L (22-26) H* 08/29/16 21:30 ABG O2 Sat (Measured) 92.7 % (90-98.9) 08/29/16 21:30 ABG O2 Content 10.9 % vol (15-22) L 08/29/16 21:30 ABG Base Excess 15.0 meq/l (-2-2) H 08/29/16 21:30 Louis Test Positive 08/29/16 21:30 VBG pH 7.30 (7.32-7.42) L 08/13/16 15:54 POC VBG pCO2 49.2 mmHg (38-52) 08/13/16 15:54 POC VBG pO2 25.4 mmHg (28-48) L 08/13/16 15:54 Mixed VBG HCO3 23.4 meq/L (19-25) 08/13/16 15:54 O2 Delivery Device Venti mask 08/29/16 21:30 Oxygen Flow Rate 40% 08/29/16 21:30 PEEP 0.0 cmH2O 08/29/16 21:30 Sodium 147 mmol/L (136-145) H 09/01/16 05:40 Potassium 3.6 mmol/L (3.5-5.1) 09/01/16 05:40 Chloride 96 mmol/L (98-107) L 09/01/16 05:40 Carbon Dioxide 44 mmol/L (21-32) H 09/01/16 05:40 Anion Gap 7 (8-16) L 09/01/16 05:40 BUN 71 mg/dL (7-18) H 09/01/16 05:40 Creatinine 1.7 mg/dL (0.7-1.3) H 09/01/16 05:40 Creat Clearance w eGFR 53.67 (>60) 08/25/16 05:35 Random Glucose 109 mg/dL (74-106) H D 09/01/16 05:40 Lactic Acid 1.560 mmol/L (0.4-2.0) 08/29/16 21:30 Calcium 8.5 mg/dL (8.5-10.1) 09/01/16 05:40 Phosphorus 3.7 mg/dL (2.5-4.9) 08/20/16 05:20 Magnesium 2.5 mg/dL (1.8-2.4) H 08/27/16 05:30 Iron 15 ug/dL (38-169) L 08/13/16 15:50 TIBC 305 ug/dL (250-450) 08/13/16 15:50 Iron Saturation 5 % (15-55) L 08/13/16 15:50 Ferritin 28.597 ng/ml (16.4-293.9) 08/13/16 12:00 Total Bilirubin 1.8 mg/dL (0.2-1.0) H 09/01/16 05:40 Direct Bilirubin 1.4 mg/dL (0.0-0.2) H 09/01/16 05:40 AST 27 U/L (15-37) D 09/01/16 05:40 ALT 20 U/L (12-78) 09/01/16 05:40 Alkaline Phosphatase 193 U/L (45-117) H 09/01/16 05:40 Creatine Kinase 67 IU/L (39-308) 08/13/16 15:45 Troponin I 0.06 ng/ml (0.00-0.05) H D 08/13/16 15:45 B-Natriuretic Peptide 59704.44 pg/ml (5-450) H 08/16/16 20:30 Total Protein 6.5 g/dl (6.4-8.2) 09/01/16 05:40 Albumin 2.2 g/dl (3.4-5.0) L 09/01/16 05:40 Total Amylase 45 U/L (25-115) 08/29/16 21:30 TSH 2.00 uIU/ml (0.358-3.74) 08/13/16 12:00 Stool Occult Blood Negative (NEGATIVE) 08/13/16 17:00 Blood Type A POSITIVE 08/13/16 15:45 Antibody Screen Negative 08/13/16 15:45 Crossmatch See Detail 08/13/16 15:45 tele: v-paced, occ pvcs, no nsvt Abd u/a: moderate amount of ascites in upper abdomen. Liver and spleen findings c/w cirrhosis. cath 08/02 all grafts patent (self to lad, svg to lcx, svg to rpda) Echo 07/2016 (this admit): mod lve, sev reduced LV fn (global). mild rve with mild hypo (severe TR, intrinsic RV fn likely more depressed), 1+ connie. 1+ mr, severe tr, mod phtn, pl effusion Echo 07/2015: sev lve, sev reduced lvef (global). grade 2 diastolic dysfunction. nl RV. mild connie. dilated ivc. mod mr, mod-sev tr, sev phtn, mild pr. Echo 08/03: sev LVE with severe decr EF; mild RV dil with moderate hypo; mod MR/ TR; RVSP >60 a/p: 76 yo recent smoker (quit 6 mo ago) with h/o CAD s/p CABG, ischemic CM with EF 25% s/p BiVICD with secondary severe pulmonary hypertension, prior CVA , HL, copd, CKD, bph, chronic iron deficiency anemia who p/w worsened cough, sob , hypotension and noted to have profound anemia. Pre-operative clearance/anemia. -hgb remains stable since prbcs transfused -RCRI of 3 with decompensated chf and low bp here. Has estimated high risk for jd-operative CV complications. Would continue to optimize cardiac/pulmonary status for now. isch CMP (acute systolic CHF exacerbation) - Patient's weight actually stable as outpatient in past month. Possible pulmonary congestion on CXR. ddx infection. trace le edema. After lasix 80 mg IV in ER last night, cr improved, but sodium worsened. Now s/p 2 units of PRBC and lasix 40 mg IV x 1 yesterday 08/14 with improvement in sodium, worsened again overnight. -08/15-08/26: see prior notes -08/27: 2000 cc UOP yesterday; wt trending down (though bedscale wts); CXR has not improved much since here (slight improvement R base); bun/creat trending up slightly. This is the first time in at least 7 days that pt reports sob improving, and there is no wheezing on exam; likewise, his JVD is finally below angle of the jaw;cxr ? slightly better (overpenetrated film). Continue same milrinone, vasopressing and lasix 80 iv tid with metolazone 2.5 x 1 today, rpt cxr in am. (suspect severe TR will leave him with residual very high JVD and right sided CHF tendencies, but would like to see lungs clear radiographically and sob/wheezing improve) - 08/28: CXR improved today. BMP stable (na slightly inc again). Will cut back to bid lasix today with metolazone x 1. Will wean milrinone to 0.2. Goal is 1L negative over next 24 hrs instead of 2L. Repeat bmp in afternoon --> Will reevaluate this afternoon and consider weaning vasopressin over night and consider transition to PO diuretics tomorrow. -08/29: vol status stable, cr stable. Will begin transitioning to po med regimen. Dc milrinone today and then wean off vasopressin as bp allows. Will change to po lasix 80 bid for now and monitor vol status/cr to see if this dose needs to be adjusted -08/30: Now off milrinone. vol stable, cr stable. cxr improved. Cont lasix 80 bid po for now. titrate off vasopressin today. -08/31: Now off both milrinone and vasopressin. SBP in 90s which is his baseline. Cont lasix 80 po bid. Wt stable today but cr up a bit, will continue to monitor vol status/cr trend to see if need to increase diuretic dose. -09/01: Cr rising again today. Does not seem vol overloaded now so does not seem cardiorenal presently, possibly overdiuresed. Will hold lasix for now and monitor cr trend. Wt stable today. -was not on bb, aceI at home due to prior side effects of hypotension, dizziness -->now that off milrinone/vasopressin will add low dose reno/bb if bp tolerates -office BiV followup/optimization with dr aparicio (if freq PVCs remain with BiV pacing frequency <90%, consider mexilitene or amio for PVC suppression to enhance [employer], in d/w EP) ascites, imaging evidence of cirrhosis: -? cardiac cirrhosis from right sided chf/severe TR -chf optimization as doing -further GI/liver eval to pmd/GI CAD s/p h/o CABG 2006 - holding ASA, plavix due to initial presentation of anemia requiring transfusion. If anti-platelets can be resumed, would consider resuming ASA alone. - no angina or signs acs h/o CVA: -was on ASA, plavix --> on hold as above. V Tach: - nsvt seen on prior ICD checks and on tele here as well. - electrolyte repletion prn as doing - con't telemetry monitoring. - will cont deferring BB while still on vasopressin with low bp - less PVCs on tele since stopping milrinone/treating chf PAT/PSVT - brief episodes on tele here a.e. COPD: -On steroids, pulm following
--- NOTE | 2016-09-01 10:52 | PN ---
Progress Note (short form) - Note Progress Note: PULMONARY Denies shortness of breath or chest pain. No cough. Last Vital Signs Temp Pulse Resp BP Pulse Ox 98.5 F 78 20 101/67 94 L 09/01/16 05:50 09/01/16 05:50 09/01/16 05:50 09/01/16 05:50 08/31/16 22:00 Intake & Output 08/29/16 08/30/16 08/31/16 09/01/16 23:59 23:59 23:59 23:59 Intake Total 342.4 734 650 120 Output Total 3900 1400 1450 Balance -3557.6 -666 -800 120 Weight 124 lb 1.924 oz 123 lb 5 oz 124 lb 3 oz 124 lb 7 oz Gen: NAD at rest Heart: RRR Lung: decreased breath sounds at the bases Abd:soft, nontender Ext: no edema CBC, BMP 08/30/16 05:20 09/01/16 05:40 Active Medications Acetaminophen (Tylenol -) 650 mg PO Q6H PRN PRN Reason: FEVER OR PAIN Last Admin: 08/31/16 04:47 Dose: 650 mg Al Hydroxide/Mg Hydroxide (Mylanta Oral Suspension -) 30 ml PO Q6H PRN PRN Reason: DYSPEPSIA Last Admin: 08/31/16 04:48 Dose: 30 ml Albuterol/Ipratropium (Duoneb -) 1 amp NEB Q4H PRN PRN Reason: SHORTNESS OF BREATH Ascorbic Acid (Vitamin C -) 500 mg PO DAILY [facility] Last Admin: 09/01/16 10:10 Dose: 500 mg Atorvastatin Calcium (Lipitor -) 10 mg PO [facility] Last Admin: 08/31/16 23:20 Dose: 10 mg Chlorhexidine Gluconate (Hibiclens For Decolonization -) 1 applic TP [facility] Last Admin: 08/31/16 23:37 Dose: Not Given Ferrous Sulfate (Feosol -) 325 mg PO DAILY [facility] Last Admin: 09/01/16 10:09 Dose: 325 mg Polyethylene Glycol (Miralax (For Daily Use) -) 17 gm PO DAILY [facility] Last Admin: 09/01/16 10:10 Dose: 17 gm Potassium Chloride (K-Dur -) 40 meq PO BID [facility] Last Admin: 09/01/16 10:09 Dose: 40 meq Ranitidine HCl (Zantac -) 150 mg PO BID [facility] Last Admin: 09/01/16 10:09 Dose: 150 mg A/P Acute COPD Exacerbation Acute on Chronic Severe LV Systolic Dysfunction Lactic Acidosis resolved Anemia s/p PRBC transfusions Acute on Chronic Renal Failure CAD s/p CABG Ascites/Cardiac Cirrhosis - continue lasix as needed - monitor urine output, creatinine - monitor H/H - inhaled bronchodilators - increase PO free water - DVT/GI prophylaxis
[2016-09-01] MEDS: ATORVASTATIN CA 10 MG TABLET (FP) PO SCH (23:02)
[2016-09-01] MEDS: CHLORHEXIDINE GLUCONATE 4% CLEANSER FOR DECOLONIZATION TP SCH (23:03)
--- NOTE | 2016-09-02 08:57 | PN ---
Progress Note, Physician Chief Complaint: no distress No pain No SOB pt examined in Telemetry - Current Medication List Current Medications: Active Medications Acetaminophen (Tylenol -) 650 mg PO Q6H PRN PRN Reason: FEVER OR PAIN Last Admin: 08/31/16 04:47 Dose: 650 mg Al Hydroxide/Mg Hydroxide (Mylanta Oral Suspension -) 30 ml PO Q6H PRN PRN Reason: DYSPEPSIA Last Admin: 08/31/16 04:48 Dose: 30 ml Albuterol/Ipratropium (Duoneb -) 1 amp NEB Q4H PRN PRN Reason: SHORTNESS OF BREATH Ascorbic Acid (Vitamin C -) 500 mg PO DAILY [facility] Last Admin: 09/01/16 10:10 Dose: 500 mg Atorvastatin Calcium (Lipitor -) 10 mg PO HS [facility] Last Admin: 09/01/16 23:02 Dose: 10 mg Chlorhexidine Gluconate (Hibiclens For Decolonization -) 1 applic TP [facility] Last Admin: 09/01/16 23:03 Dose: Not Given Ferrous Sulfate (Feosol -) 325 mg PO DAILY [facility] Last Admin: 09/01/16 10:09 Dose: 325 mg Polyethylene Glycol (Miralax (For Daily Use) -) 17 gm PO DAILY [facility] Last Admin: 09/01/16 10:10 Dose: 17 gm Potassium Chloride (K-Dur -) 40 meq PO BID [facility] Last Admin: 09/01/16 23:03 Dose: 40 meq Ranitidine HCl (Zantac -) 150 mg PO BID [facility] Last Admin: 09/01/16 23:02 Dose: 150 mg - Objective Vital Signs: Vital Signs Temperature 98.6 F 09/02/16 06:00 Pulse Rate 89 09/02/16 06:00 Respiratory Rate 20 09/02/16 06:00 Blood Pressure 90/57 09/02/16 06:00 O2 Sat by Pulse Oximetry (%) 95 09/01/16 21:00 Constitutional: Yes: No Distress Cardiovascular: Yes: Regular Rate and Rhythm, Murmur Respiratory: Yes: Diminished. No: Rales, Rhonchi Gastrointestinal: Yes: Normal Bowel Sounds, Soft. No: Distention, Tenderness Edema: No Labs: CBC, BMP 08/30/16 05:20 INR, PTT INR 1.66 (0.82-1.09) H 08/14/16 07:55 Problem List - Problems (1) Anemia Code(s): D64.9 - ANEMIA, UNSPECIFIED Qualifiers: Anemia type: unspecified type Qualified Code(s): D64.9 - Anemia, unspecified (2) CHF (congestive heart failure) Code(s): I50.9 - HEART FAILURE, UNSPECIFIED Qualifiers: Congestive heart failure type: combined Congestive heart failure chronicity: acute on chronic Qualified Code(s): I50.43 - Acute on chronic combined systolic (congestive) and diastolic (congestive) heart failure (3) CKD (chronic kidney disease) Code(s): N18.9 - CHRONIC KIDNEY DISEASE, UNSPECIFIED Qualifiers: Chronic kidney disease stage: unspecified stage Qualified Code(s): N18.9 - Chronic kidney disease, unspecified (4) Hypotension Code(s): I95.9 - HYPOTENSION, UNSPECIFIED (5) CHF exacerbation Code(s): I50.9 - HEART FAILURE, UNSPECIFIED (6) COPD (chronic obstructive pulmonary disease) Code(s): J44.9 - CHRONIC OBSTRUCTIVE PULMONARY DISEASE, UNSPECIFIED Assessment/Plan PLAN Lasix on hold pt euvolemic Vasopressin dc, milrinone DC renal function about the same Nebs as needed PT eval BP monitoring OOB Pt is DNR/DNI
[2016-09-02 09:11] LABS: ALBUMIN 2.3 g/dl (3.4-5.0); BILIRUBIN,TOTAL 2.2 mg/dL (0.2-1.0); COCKROFT - GAULT 29.51; CREATININE 1.7 mg/dL (0.7-1.3); TOT PROT 6.5 g/dl (6.4-8.2)
[2016-09-02] MEDS: FERROUS SO4 325 MG TABLET (FP) PO SCH (09:17)
[2016-09-02] MEDS: RANITIDINE HCL 150 MG TABLET (FP) PO SCH ×2 (09:17→22:46)
[2016-09-02] MEDS: POTASSIUM CHLORIDE TABS 20 MEQ TABLET.ER (FP) PO SCH ×2 (09:17→22:46)
[2016-09-02] MEDS: ASCORBIC ACID 500 MG TABLET (FP) PO SCH (09:18)
--- NOTE | 2016-09-02 11:15 | PN ---
Progress Note (short form) - Note Progress Note: CC: anemia/chf exacerbation, no cigs S: no cp, palps, dizziness, sob, orthopnea, le edema; eating well Vital Signs Temp 98.7 F 09/02/16 10:00 Pulse 82 09/02/16 10:38 Resp 20 09/02/16 10:00 BP 96/51 09/02/16 10:00 Pulse Ox 95 09/02/16 10:38 Intake & Output 09/01/16 09/01/16 09/02/16 11:59 23:59 11:59 Intake Total 120 550 Balance 120 550 Weight 124 lb 7 oz Intake: Oral 120 550 Other: Voiding Method Incontinent Incontinent Weight Measurement Method Patient Lift Scale Constitutional: Yes: No Distress Eyes: No: Sclera Icterus Respiratory: Yes: scattered rhonchi No: Accessory Muscle Use, Wheezes Gastrointestinal: Yes: Normal Bowel Sounds. no Distention, No Hepatomegaly, Palpable Mass, Tenderness Cardiovascular: Yes: Regular Rate and Rhythm (soft heart sounds) Heart Sounds: Yes: S1, S2. No: Gallop Murmur: 2/6 high pitched sys murmur at lsb and apex Extremities: No: Cold, Cyanosis Edema: no le edema/c/c Peripheral Pulses:+dp pt Integumentary: No: Jaundice diaphoresis Neurological: Yes: Alert, appropriate Psychiatric: No: Agitated Current Medications Generic Name Dose Route Start Last Admin Trade Name Freq PRN Reason Stop Dose Admin Acetaminophen 650 mg 08/30/16 16:05 08/31/16 04:47 Tylenol - PO 650 mg Q6H PRN Administration FEVER OR PAIN Al Hydroxide/Mg Hydroxide 30 ml 08/30/16 16:05 08/31/16 04:48 Mylanta Oral Suspension - PO 30 ml Q6H PRN Administration DYSPEPSIA Albuterol/Ipratropium 1 amp 08/30/16 16:05 Duoneb - NEB Q4H PRN SHORTNESS OF BREATH Ascorbic Acid 500 mg 08/31/16 10:00 09/02/16 09:18 Vitamin C - PO 500 mg DAILY [place] Administration Atorvastatin Calcium 10 mg 08/30/16 22:00 09/01/16 23:02 Lipitor - PO 10 mg HS [place] Administration Chlorhexidine Gluconate 1 applic 08/30/16 22:00 09/01/16 23:03 Hibiclens For Decolonization - TP Not Given HS [place] Ferrous Sulfate 325 mg 08/31/16 10:00 09/02/16 09:17 Feosol - PO 325 mg DAILY [place] Administration Polyethylene Glycol 17 gm 08/31/16 10:00 09/01/16 10:10 Miralax (For Daily Use) - PO 17 gm DAILY [place] Administration Potassium Chloride 40 meq 08/30/16 22:00 09/02/16 09:17 K-Dur - PO 40 meq BID [place] Administration Ranitidine HCl 150 mg 08/30/16 22:00 09/02/16 09:17 Zantac - PO 150 mg BID [place] Administration Laboratory Last Values WBC 17.4 K/mm3 (4.0-10.0) H 08/30/16 05:20 RBC 3.93 M/mm3 (4.00-5.60) L 08/30/16 05:20 Hgb 8.2 GM/dL (11.7-16.9) L 08/30/16 05:20 Hct 28.8 % (35.4-49) L 08/30/16 05:20 MCV 73.1 fl (80-96) L 08/30/16 05:20 MCHC 28.4 g/dl (32.0-35.9) L 08/30/16 05:20 RDW 29.5 % (11.9-15.9) H 08/30/16 05:20 Plt Count 144 K/MM3 (134-434) 08/30/16 05:20 MPV 9.4 fl (7.5-11.1) 08/30/16 05:20 Neutrophils % 90.2 % (42.8-82.8) H 08/30/16 05:20 Lymphocytes % 3.1 % (8-40) L D 08/30/16 05:20 Monocytes % 6.0 % (3.8-10.2) 08/30/16 05:20 Eosinophils % 0.4 % (0-4.5) 08/30/16 05:20 Basophils % 0.3 % (0-2.0) 08/30/16 05:20 Differential Comment Manual diff done 08/27/16 05:30 Platelet Estimate Adequate (NORMAL) 08/27/16 05:30 Platelet Comment No clumping noted 08/19/16 05:27 Polychromasia 1+ 08/19/16 05:27 Hypochromic-Microcytic 3+ 08/27/16 05:30 Poikilocytosis 1+ 08/19/16 05:27 Basophilic Stippling Few 08/19/16 05:27 Anisocytosis 3+ 08/27/16 05:30 Microcytosis 2+ 08/27/16 05:30 Macrocytosis Few 08/27/16 05:30 Target Cells 3+ 08/27/16 05:30 Ovalocytes 1+ 08/19/16 05:27 INR 1.66 (0.82-1.09) H 08/14/16 07:55 PTT (Actin FS) 30.9 SECONDS (26.9-34.4) 08/13/16 15:45 Puncture Site Right radial 08/29/16 21:30 ABG pH 7.50 (7.35-7.45) H 08/29/16 21:30 ABG pCO2 at Pt Temp 52.0 mmHg (35-45) H 08/29/16 21:30 ABG pO2 at Pt Temp 62.6 mmHg (70-100) L 08/29/16 21:30 ABG HCO3 40.1 meq/L (22-26) H* 08/29/16 21:30 ABG O2 Sat (Measured) 92.7 % (90-98.9) 08/29/16 21:30 ABG O2 Content 10.9 % vol (15-22) L 08/29/16 21:30 ABG Base Excess 15.0 meq/l (-2-2) H 08/29/16 21:30 Louis Test Positive 08/29/16 21:30 VBG pH 7.30 (7.32-7.42) L 08/13/16 15:54 POC VBG pCO2 49.2 mmHg (38-52) 08/13/16 15:54 POC VBG pO2 25.4 mmHg (28-48) L 08/13/16 15:54 Mixed VBG HCO3 23.4 meq/L (19-25) 08/13/16 15:54 O2 Delivery Device Venti mask 08/29/16 21:30 Oxygen Flow Rate 40% 08/29/16 21:30 PEEP 0.0 cmH2O 08/29/16 21:30 Sodium 146 mmol/L (136-145) H 09/02/16 05:55 Potassium 4.9 mmol/L (3.5-5.1) D 09/02/16 05:55 Chloride 98 mmol/L (98-107) 09/02/16 05:55 Carbon Dioxide 40 mmol/L (21-32) H 09/02/16 05:55 Anion Gap 8 (8-16) 09/02/16 05:55 BUN 76 mg/dL (7-18) H 09/02/16 05:55 Creatinine 1.7 mg/dL (0.7-1.3) H 09/02/16 05:55 Creat Clearance w eGFR 39.38 (>60) 09/02/16 05:55 Random Glucose 94 mg/dL (74-106) 09/02/16 05:55 Lactic Acid 1.560 mmol/L (0.4-2.0) 08/29/16 21:30 Calcium 8.0 mg/dL (8.5-10.1) L 09/02/16 05:55 Phosphorus 3.7 mg/dL (2.5-4.9) 08/20/16 05:20 Magnesium 2.5 mg/dL (1.8-2.4) H 08/27/16 05:30 Iron 15 ug/dL (38-169) L 08/13/16 15:50 TIBC 305 ug/dL (250-450) 08/13/16 15:50 Iron Saturation 5 % (15-55) L 08/13/16 15:50 Ferritin 28.597 ng/ml (16.4-293.9) 08/13/16 12:00 Total Bilirubin 2.2 mg/dL (0.2-1.0) H D 09/02/16 05:55 Direct Bilirubin 1.4 mg/dL (0.0-0.2) H 09/01/16 05:40 AST 53 U/L (15-37) H D 09/02/16 05:55 ALT 33 U/L (12-78) D 09/02/16 05:55 Alkaline Phosphatase 254 U/L (45-117) H D 09/02/16 05:55 Creatine Kinase 67 IU/L (39-308) 08/13/16 15:45 Troponin I 0.06 ng/ml (0.00-0.05) H D 08/13/16 15:45 B-Natriuretic Peptide 52365.44 pg/ml (5-450) H 08/16/16 20:30 Total Protein 6.5 g/dl (6.4-8.2) 09/02/16 05:55 Albumin 2.3 g/dl (3.4-5.0) L 09/02/16 05:55 Total Amylase 45 U/L (25-115) 08/29/16 21:30 TSH 2.00 uIU/ml (0.358-3.74) 08/13/16 12:00 Stool Occult Blood Negative (NEGATIVE) 08/13/16 17:00 Blood Type A POSITIVE 08/13/16 15:45 Antibody Screen Negative 08/13/16 15:45 Crossmatch See Detail 08/13/16 15:45 tele: v-paced, occ pvcs, one brief nsvt Abd u/a: moderate amount of ascites in upper abdomen. Liver and spleen findings c/w cirrhosis. cath 08/02 all grafts patent (self to lad, svg to lcx, svg to rpda) Echo 07/2016 (this admit): mod lve, sev reduced LV fn (global). mild rve with mild hypo (severe TR, intrinsic RV fn likely more depressed), 1+ connie. 1+ mr, severe tr, mod phtn, pl effusion Echo 07/2015: sev lve, sev reduced lvef (global). grade 2 diastolic dysfunction. nl RV. mild connie. dilated ivc. mod mr, mod-sev tr, sev phtn, mild pr. Echo 08/03: sev LVE with severe decr EF; mild RV dil with moderate hypo; mod MR/ TR; RVSP >60 a/p: 76 yo recent smoker (quit 6 mo ago) with h/o CAD s/p CABG, ischemic CM with EF 25% s/p BiVICD with secondary severe pulmonary hypertension, prior CVA , HL, copd, CKD, bph, chronic iron deficiency anemia who p/w worsened cough, sob , hypotension and noted to have profound anemia. Pre-operative clearance/anemia. -hgb remains stable since prbcs transfused -RCRI of 3 with decompensated chf and low bp here. Has estimated high risk for jd-operative CV complications. Would continue to optimize cardiac/pulmonary status for now. isch CMP (acute systolic CHF exacerbation) - Patient's weight actually stable as outpatient in past month. Possible pulmonary congestion on CXR. ddx infection. trace le edema. After lasix 80 mg IV in ER last night, cr improved, but sodium worsened. Now s/p 2 units of PRBC and lasix 40 mg IV x 1 yesterday 08/14 with improvement in sodium, worsened again overnight. -08/15-08/26: see prior notes -08/27: 2000 cc UOP yesterday; wt trending down (though bedscale wts); CXR has not improved much since here (slight improvement R base); bun/creat trending up slightly. This is the first time in at least 7 days that pt reports sob improving, and there is no wheezing on exam; likewise, his JVD is finally below angle of the jaw;cxr ? slightly better (overpenetrated film). Continue same milrinone, vasopressing and lasix 80 iv tid with metolazone 2.5 x 1 today, rpt cxr in am. (suspect severe TR will leave him with residual very high JVD and right sided CHF tendencies, but would like to see lungs clear radiographically and sob/wheezing improve) - 08/28: CXR improved today. BMP stable (na slightly inc again). Will cut back to bid lasix today with metolazone x 1. Will wean milrinone to 0.2. Goal is 1L negative over next 24 hrs instead of 2L. Repeat bmp in afternoon --> Will reevaluate this afternoon and consider weaning vasopressin over night and consider transition to PO diuretics tomorrow. -08/29: vol status stable, cr stable. Will begin transitioning to po med regimen. Dc milrinone today and then wean off vasopressin as bp allows. Will change to po lasix 80 bid for now and monitor vol status/cr to see if this dose needs to be adjusted -08/30: Now off milrinone. vol stable, cr stable. cxr improved. Cont lasix 80 bid po for now. titrate off vasopressin today. -08/31: Now off both milrinone and vasopressin. SBP in 90s which is his baseline. Cont lasix 80 po bid. Wt stable today but cr up a bit, will continue to monitor vol status/cr trend to see if need to increase diuretic dose. -09/01: Cr rising again today. Does not seem vol overloaded now so does not seem cardiorenal presently, possibly overdiuresed. Will hold lasix for now and monitor cr trend. Wt stable today. -09/02: Have been holding lasix due to possible overdiuresis. last dose lasix was 09/01 AM. today volume appears stable. Cr unchanged but na and bicarb improved. Does not seem vol overloaded now so does not seem cardiorenal presently, possibly overdiuresed. Will hold lasix for now and monitor cr trend. -was not on bb, aceI at home due to prior side effects of hypotension, dizziness -->now that off milrinone/vasopressin will add low dose reno/bb if bp tolerates -office BiV followup/optimization with dr aparicio (if freq PVCs remain with BiV pacing frequency <90%, consider mexilitene or amio for PVC suppression to enhance [employer], in d/w EP) ascites, imaging evidence of cirrhosis: -? cardiac cirrhosis from right sided chf/severe TR -chf optimization as doing -further GI/liver eval to pmd/GI CAD s/p h/o CABG 2006 - holding ASA, plavix due to initial presentation of anemia requiring transfusion. If anti-platelets can be resumed, would consider resuming ASA alone. - no angina or signs acs h/o CVA: -was on ASA, plavix --> on hold as above. V Tach: - nsvt seen on prior ICD checks and on tele here as well. - electrolyte repletion prn as doing - con't telemetry monitoring. - will cont deferring BB while still on vasopressin with low bp - less PVCs on tele since stopping milrinone/treating chf PAT/PSVT - brief episodes on tele here a.e. COPD: -finished steroids, pulm following
[2016-09-02] MEDS: POLYETHYLENE GLYCOL 3350 119 GM BTL PO SCH (13:33)
--- NOTE | 2016-09-02 13:33 | PN ---
Progress Note (short form) - Note Progress Note: PULMONARY Denies shortness of breath or chest pain. Last Vital Signs Temp Pulse Resp BP Pulse Ox 98.7 F 82 20 96/51 95 09/02/16 10:00 09/02/16 10:38 09/02/16 10:00 09/02/16 10:00 09/02/16 10:38 Gen: NAD at rest Heart: RRR Lung: decreased breath sounds at the bases Abd:soft, nontender Ext: no edema CBC, BMP 08/30/16 05:20 09/02/16 05:55 Active Medications Acetaminophen (Tylenol -) 650 mg PO Q6H PRN PRN Reason: FEVER OR PAIN Last Admin: 08/31/16 04:47 Dose: 650 mg Al Hydroxide/Mg Hydroxide (Mylanta Oral Suspension -) 30 ml PO Q6H PRN PRN Reason: DYSPEPSIA Last Admin: 08/31/16 04:48 Dose: 30 ml Albuterol/Ipratropium (Duoneb -) 1 amp NEB Q4H PRN PRN Reason: SHORTNESS OF BREATH Ascorbic Acid (Vitamin C -) 500 mg PO DAILY [facility] Last Admin: 09/02/16 09:18 Dose: 500 mg Atorvastatin Calcium (Lipitor -) 10 mg PO HS [facility] Last Admin: 09/01/16 23:02 Dose: 10 mg Chlorhexidine Gluconate (Hibiclens For Decolonization -) 1 applic TP [facility] Last Admin: 09/01/16 23:03 Dose: Not Given Ferrous Sulfate (Feosol -) 325 mg PO DAILY [facility] Last Admin: 09/02/16 09:17 Dose: 325 mg Polyethylene Glycol (Miralax (For Daily Use) -) 17 gm PO DAILY [facility] Last Admin: 09/01/16 10:10 Dose: 17 gm Potassium Chloride (K-Dur -) 40 meq PO BID [facility] Last Admin: 09/02/16 09:17 Dose: 40 meq Ranitidine HCl (Zantac -) 150 mg PO BID [facility] Last Admin: 09/02/16 09:17 Dose: 150 mg A/P Acute COPD Exacerbation Acute on Chronic Severe LV Systolic Dysfunction Lactic Acidosis resolved Anemia s/p PRBC transfusions Acute on Chronic Renal Failure CAD s/p CABG Ascites/Cardiac Cirrhosis - continue lasix as needed - monitor urine output, creatinine - monitor H/H - inhaled bronchodilators - increase PO free water - DVT/GI prophylaxis
[2016-09-02] MEDS: MAG HYDROX/AL HYDROX/SIMETH 30 ML UNIT-DOSE CUP PO PRN (17:40)
[2016-09-02] MEDS: ATORVASTATIN CA 10 MG TABLET (FP) PO SCH (22:46)
[2016-09-03] MEDS: ALBUTEROL SO4 2.5/IPRATROPIUM 0.5 INH SOL 3 ML VIAL.NEB. NEB PRN ×3 (01:10→13:50)
--- NOTE | 2016-09-03 03:14 | RAPID ---
Physical Examination Vital Signs: Vital Signs Temperature 99.6 F 09/02/16 17:00 Pulse Rate 82 09/02/16 18:00 Respiratory Rate 14 09/02/16 18:00 Blood Pressure 90/57 09/02/16 18:00 O2 Sat by Pulse Oximetry (%) 96 09/02/16 10:38 BG 133 Findings/Remarks: patient fell in bathroom after/bm, was found on floor. abrasion on back of head on on L hand. aaox3. complains of h/a but no other pain. no n/v.No reported LOC Constitutional: Yes: No Distress, Calm Eyes: Yes: Conjunctiva Clear, EOM Intact, PERRL HENT: Yes: Normocephalic, Other (small posterior scalp abrasion) Neck: Yes: Supple Cardiovascular: Yes: Regular Rate and Rhythm, S1, S2 Respiratory: Yes: Rhonchi (bibasilar) Gastrointestinal: Yes: Normal Bowel Sounds, Soft Musculoskeletal: No: Back Pain, Joint Swelling, Muscle Pain, Muscle Weakness Extremities: Yes: Other (able to move all extremities). No: Erythema, External Rotation, Internal Rotation Peripheral Pulses: Left Radial: 2+, Right Radial: 2+ Neurological: Yes: Alert, Oriented, Cran Nerves II-XII Intact (grossly). No: Weakness Psychiatric: Yes: Alert, Oriented Labs: CBC, BMP 08/30/16 05:20 09/02/16 05:55 Rapid Response - Rapid Response Assessment: mechanical fall causing head abrasion -neuro exam negative, neurocheck q2h x 2 hr then q4h -abrasion does not require sutures/michell -heat ct w/o contrast stat -ice pack to head -not on a/c meds L hand abrasion: -neosporin
--- NOTE | 2016-09-03 03:18 | RAPID ---
Physical Examination Vital Signs: Vital Signs Temperature 98.1 F 09/02/16 17:00 Pulse Rate 82 09/02/16 18:00 Respiratory Rate 20 09/02/16 18:00 Blood Pressure 84/52 09/02/16 18:00 O2 Sat by Pulse Oximetry (%) 95 09/02/16 10:38 Findings/Remarks: Called for pt. fall unwitnessed Hit back of head Pt. states he has headache Physical: VS: Vital Signs Period Temp Pulse Resp BP Sys/Vega Pulse Ox Last 24 Hr 97.7 F-98.7 F 79-96 20-20 78-96/40-57 95-99 FS 126 GEN: NAD HEENT: mild abrasion on occipital area CARD: RRR S1, S2 RESP: Bilateral coarse breath sounds EXT:, R. Dorsal hand abrasion A/P.) Unwitnessed Fall - STAT CT HEAD wo con - Repeat CBC Labs: CBC, BMP 08/30/16 05:20 09/02/16 05:55
--- NOTE | 2016-09-03 03:28 | FALL ---
Fall Exam - Event Witnessed fall: No Location of Fall: Bathroom Fall from: Toilet - Pre-Fall Fall Risk: High Risk Mental Status: Alert, Oriented, Cooperative Current Medications: Current Medications Generic Name Dose Route Start Last Admin Trade Name Freq PRN Reason Stop Dose Admin Acetaminophen 650 mg 08/30/16 16:05 08/31/16 04:47 Tylenol - PO 650 mg Q6H PRN Administration FEVER OR PAIN Al Hydroxide/Mg Hydroxide 30 ml 08/30/16 16:05 09/02/16 17:40 Mylanta Oral Suspension - PO 30 ml Q6H PRN Administration DYSPEPSIA Albuterol/Ipratropium 1 amp 08/30/16 16:05 09/03/16 01:10 Duoneb - NEB 1 amp Q4H PRN Administration SHORTNESS OF BREATH Ascorbic Acid 500 mg 08/31/16 10:00 09/02/16 09:18 Vitamin C - PO 500 mg DAILY [place] Administration Atorvastatin Calcium 10 mg 08/30/16 22:00 09/02/16 22:46 Lipitor - PO 10 mg HS [place] Administration Ferrous Sulfate 325 mg 08/31/16 10:00 09/02/16 09:17 Feosol - PO 325 mg DAILY [place] Administration Polyethylene Glycol 17 gm 08/31/16 10:00 09/02/16 13:33 Miralax (For Daily Use) - PO 17 gm DAILY [place] Administration Potassium Chloride 40 meq 08/30/16 22:00 09/02/16 22:46 K-Dur - PO 40 meq BID [place] Administration Ranitidine HCl 150 mg 08/30/16 22:00 09/02/16 22:46 Zantac - PO 150 mg BID [place] Administration - Post-Fall Patient Outcome: Laceration (small post scalp abd l hand dorsum), Abrasion/ Bruise (small post scalp and l hand dorsum) Treatment: Ice Pack Vital Signs: Vital Signs Temperature 98.6 F 09/03/16 02:00 Pulse Rate 82 09/03/16 02:00 Respiratory Rate 20 09/03/16 02:00 Blood Pressure 88/55 09/03/16 02:00 O2 Sat by Pulse Oximetry (%) 95 09/02/16 10:38 LOC Post-Fall: Unchanged, Awake, Alert, Oriented Identify factors for HIGH RISK for Head Injury: Known to have hit head Critical Care Total Critical Care Time (in minutes): 45 Critical Care Statement: The care of this patient involved high complexity decision making to prevent further life threatening deterioration of the patient 's condition and/or to evalute & treat vital organ system(s) failure or risk of failure.
[2016-09-03 07:00] LABS: MCH 21.3 pg (25.7-33.7); MCHC 28.4 g/dl (32.0-35.9); MEAN PLT VOLUME 9.3 fl (7.5-11.1); PLATELET COUNT 289 K/MM3 (134-434); RDW 29.7 % (11.9-15.9); WHITE BLOOD COUNT 16.6 K/mm3 (4.0-10.0)
[2016-09-03 07:25] LABS: CALCIUM 8.3 mg/dL (8.5-10.1)
[2016-09-03 07:26] LABS: COCKROFT - GAULT 23.89; CREATININE 2.1 mg/dL (0.7-1.3)
--- NOTE | 2016-09-03 08:35 | PN ---
Progress Note (short form) - Note Progress Note: Subjective Patient seen and examined. Chart reviewed. Events noted. Had mechanical fall head of partner development. CT head negative. Pt alert and awake. Daughter at bedside. Denies chest pain or headache. Looks weak. Dyspnea persists. Objective Last Vital Signs Temp Pulse Resp BP Pulse Ox 98.3 F 78 20 90/48 97 09/03/16 06:00 09/03/16 06:00 09/03/16 06:00 09/03/16 06:00 09/02/16 21:00 CBC, BMP 09/03/16 05:35 09/03/16 05:35 Laboratory Results - last 24 hr 09/03/16 09/03/16 09/03/16 03:08 05:35 05:35 WBC 16.6 H RBC 4.21 Hgb 9.0 L Hct 31.6 L MCV 75.0 L MCHC 28.4 L RDW 29.7 H Plt Count 289 D MPV 9.3 Polychromasia 1+ Hypochromic-Microcytic 3+ Anisocytosis 4+ Microcytosis 2+ Macrocytosis Few Target Cells 3+ Sodium 142 Potassium 6.5 H* D Chloride 98 Carbon Dioxide 38 H Anion Gap 6 L BUN 90 H Creatinine 2.1 H D POC Glucometer 133 Random Glucose 118 H D Calcium 8.3 L Physical Exam Constitutional: Yes: No Distress but weak Cardiovascular: Yes: Regular Rate and Rhythm, Murmur Respiratory: Yes: Diminished. No: Rales, Rhonchi Gastrointestinal: Yes: Normal Bowel Sounds, Soft. No: Distention, Tenderness Edema: No Neuro: Alert and awake. Nonfocal exam. Assessment and Plan Overall condition remains weak. I discussed with Dr. Leyva today. Patient likely over diuresed. Mild hydration. Fall precautions. Fix electrolytes. Kayexalate ordered. Discussed with nursing staff. Condition is poor. Patient is DNR/DNI Discussed with patient's daughter also who is at bedside. Will follow. Documentation prepared by Kaitlin Thompson, acting as a director medical safety for Purnima Driscoll MD. <Kaitlin Thompson - Last Filed: 09/03/16 10:12> Problem List - Problems (1) Anemia Code(s): D64.9 - ANEMIA, UNSPECIFIED Qualifiers: Anemia type: unspecified type Qualified Code(s): D64.9 - Anemia, unspecified (2) CHF (congestive heart failure) Code(s): I50.9 - HEART FAILURE, UNSPECIFIED Qualifiers: Congestive heart failure type: combined Congestive heart failure chronicity: acute on chronic Qualified Code(s): I50.43 - Acute on chronic combined systolic (congestive) and diastolic (congestive) heart failure (3) CKD (chronic kidney disease) Code(s): N18.9 - CHRONIC KIDNEY DISEASE, UNSPECIFIED Qualifiers: Chronic kidney disease stage: unspecified stage Qualified Code(s): N18.9 - Chronic kidney disease, unspecified (4) COPD (chronic obstructive pulmonary disease) Code(s): J44.9 - CHRONIC OBSTRUCTIVE PULMONARY DISEASE, UNSPECIFIED (5) Hypotension Code(s): I95.9 - HYPOTENSION, UNSPECIFIED (6) Lactic acid blood increased Code(s): R79.89 - OTHER SPECIFIED ABNORMAL FINDINGS OF BLOOD CHEMISTRY (7) Pacemaker Code(s): Z95.0 - PRESENCE OF CARDIAC PACEMAKER <Purnima Driscoll - Last Filed: 09/03/16 08:35>
--- NOTE | 2016-09-03 08:57 | PN ---
Progress Note, Physician Chief Complaint: chf History of Present Illness: found on floor last night, for head CT bp's have been 70s-90s overnight, mostly 80s he denies sob, chest heaviness, palpit, leg swelling denies abd pain ex cigs - Current Medication List Current Medications: Active Medications Acetaminophen (Tylenol -) 650 mg PO Q6H PRN PRN Reason: FEVER OR PAIN Last Admin: 08/31/16 04:47 Dose: 650 mg Al Hydroxide/Mg Hydroxide (Mylanta Oral Suspension -) 30 ml PO Q6H PRN PRN Reason: DYSPEPSIA Last Admin: 09/02/16 17:40 Dose: 30 ml Albuterol/Ipratropium (Duoneb -) 1 amp NEB Q4H PRN PRN Reason: SHORTNESS OF BREATH Last Admin: 09/03/16 06:43 Dose: 1 amp Ascorbic Acid (Vitamin C -) 500 mg PO DAILY [facility] Last Admin: 09/02/16 09:18 Dose: 500 mg Atorvastatin Calcium (Lipitor -) 10 mg PO HS [facility] Last Admin: 09/02/16 22:46 Dose: 10 mg Ferrous Sulfate (Feosol -) 325 mg PO DAILY [facility] Last Admin: 09/02/16 09:17 Dose: 325 mg Neomycin/Polymyxin/Bacitracin (Neosporin Topical Ointment -) 1 applic TP DAILY [facility] Polyethylene Glycol (Miralax (For Daily Use) -) 17 gm PO DAILY [facility] Last Admin: 09/02/16 13:33 Dose: 17 gm Potassium Chloride (K-Dur -) 40 meq PO BID [facility] Last Admin: 09/02/16 22:46 Dose: 40 meq Ranitidine HCl (Zantac -) 150 mg PO BID [facility] Last Admin: 09/02/16 22:46 Dose: 150 mg - Objective Vital Signs: Vital Signs Temperature 98.3 F 09/03/16 06:00 Pulse Rate 78 09/03/16 06:00 Respiratory Rate 20 09/03/16 06:00 Blood Pressure 90/48 09/03/16 06:00 O2 Sat by Pulse Oximetry (%) 97 09/02/16 21:00 Constitutional: Yes: No Distress, Calm Eyes: No: Sclera Icterus HENT: No: Nasal Congestion Cardiovascular: Yes: Regular Rate and Rhythm, JVD, Murmur (loud TR murmur LLSB) , S1, S2, Other (PMI non diplaced). No: Gallop Respiratory: Yes: CTA Bilaterally, Diminished (L base), Rales (L base). No: Accessory Muscle Use, Wheezes Gastrointestinal: Yes: Normal Bowel Sounds, Soft, Distention. No: Tenderness Musculoskeletal: Yes: Other (No kyphosis) Extremities: No: Cold Edema: No Integumentary: No: Jaundice Neurological: Yes: Alert. No: Seizure Psychiatric: No: Agitated Labs: CBC, BMP 09/03/16 05:35 09/03/16 05:35 INR, PTT INR 1.66 (0.82-1.09) H 08/14/16 07:55 - ....Imaging EKG: Other (tele: NSR, V-paced) Assessment/Plan Abd u/s: moderate amount of ascites in upper abdomen. Liver and spleen findings c/w cirrhosis. cath 08/02 all grafts patent (self to lad, svg to lcx, svg to rpda) Echo 07/2016 (this admit): mod lve, sev reduced LV fn (global). mild rve with mild hypo (severe TR, intrinsic RV fn likely more depressed), 1+ connie. 1+ mr, severe tr, mod phtn, pl effusion Echo 07/2015: sev lve, sev reduced lvef (global). grade 2 diastolic dysfunction. nl RV. mild connie. dilated ivc. mod mr, mod-sev tr, sev phtn, mild pr. Echo 08/03: sev LVE with severe decr EF; mild RV dil with moderate hypo; mod MR/ TR; RVSP >60 a/p: 76 yo recent smoker (quit 6 mo ago) with h/o CAD s/p CABG, ischemic CM with EF 25% s/p BiVICD with secondary severe pulmonary hypertension, prior CVA , HL, copd, CKD, bph, chronic iron deficiency anemia who p/w worsened cough, sob , hypotension and noted to have profound anemia. Pre-operative clearance/anemia. -hgb remains stable since prbcs transfused -RCRI of 3 with decompensated chf and low bp here. Has estimated high risk for jd-operative CV complications. Would continue to optimize cardiac/pulmonary status for now. isch CMP (acute systolic CHF exacerbation) - Patient's weight actually stable as outpatient in past month. Possible pulmonary congestion on CXR. ddx infection. trace le edema. After lasix 80 mg IV in ER last night, cr improved, but sodium worsened. Now s/p 2 units of PRBC and lasix 40 mg IV x 1 yesterday 08/14 with improvement in sodium, worsened again overnight. -08/15-08/26: see prior notes -08/27: 2000 cc UOP yesterday; wt trending down (though bedscale wts); CXR has not improved much since here (slight improvement R base); bun/creat trending up slightly. This is the first time in at least 7 days that pt reports sob improving, and there is no wheezing on exam; likewise, his JVD is finally below angle of the jaw;cxr ? slightly better (overpenetrated film). Continue same milrinone, vasopressing and lasix 80 iv tid with metolazone 2.5 x 1 today, rpt cxr in am. (suspect severe TR will leave him with residual very high JVD and right sided CHF tendencies, but would like to see lungs clear radiographically and sob/wheezing improve) - 08/28: CXR improved today. BMP stable (na slightly inc again). Will cut back to bid lasix today with metolazone x 1. Will wean milrinone to 0.2. Goal is 1L negative over next 24 hrs instead of 2L. Repeat bmp in afternoon --> Will reevaluate this afternoon and consider weaning vasopressin over night and consider transition to PO diuretics tomorrow. -08/29: vol status stable, cr stable. Will begin transitioning to po med regimen. Dc milrinone today and then wean off vasopressin as bp allows. Will change to po lasix 80 bid for now and monitor vol status/cr to see if this dose needs to be adjusted -08/30: Now off milrinone. vol stable, cr stable. cxr improved. Cont lasix 80 bid po for now. titrate off vasopressin today. -08/31: Now off both milrinone and vasopressin. SBP in 90s which is his baseline. Cont lasix 80 po bid. Wt stable today but cr up a bit, will continue to monitor vol status/cr trend to see if need to increase diuretic dose. -09/01: Cr rising again today. Does not seem vol overloaded now so does not seem cardiorenal presently, possibly overdiuresed. Will hold lasix for now and monitor cr trend. Wt stable today. -09/02: Have been holding lasix due to possible overdiuresis. last dose lasix was 09/01 AM. today volume appears stable. Cr unchanged but na and bicarb improved. Does not seem vol overloaded now so does not seem cardiorenal presently, possibly overdiuresed. Will hold lasix for now and monitor cr trend. -09/03: cxr today poor quality with tele box overlying; appears similar to 08/29 with mild congestive changes and L effusion; low bp's, fell last night; acute prerenal MAKI on labs today--all suggestive of intravasc vol depletion sec to overdiuresis -start D5 1/2 NS at 75 cc/hr today (hypernatremia tendencies noted) -appears that his current weight, cxr appearance, and JVD severity is likely his baseline, with ongoing hi right-sided pressures due to severe TR and low left-sided pressures. -rec holding diuresis for now, then resuming maintenance po torsemide regimen ( doubt will absorb lasix well) with an eye to keep him around current weight; -if he fails that as outpatient, would suggest he have chf consult for ? home inotropes (milrinone) -was not on bb, aceI at home due to prior side effects of hypotension, dizziness --deferring now given low bp's -office BiV followup/optimization with dr aparicio ascites, imaging evidence of cirrhosis: -? cardiac cirrhosis from right sided chf/severe TR -chf optimization as doing -further GI/liver eval to pmd/GI abnormal alk phos, bili -both trending up -per PMD, GI CAD s/p h/o CABG 2006 - holding ASA, plavix due to initial presentation of anemia requiring transfusion. If anti-platelets can be resumed, would consider resuming ASA alone. - no angina or signs acs h/o CVA: -was on ASA, plavix --> on hold as above. V Tach: - nsvt seen on prior ICD checks and on tele here as well. - electrolyte repletion prn as doing - con't telemetry monitoring. - will cont deferring BB while still on vasopressin with low bp - less PVCs on tele since stopping milrinone/treating chf PAT/PSVT - brief episodes on tele here a.e. COPD: -finished steroids, pulm following
[2016-09-03] MEDS ORDERED: SODIUM CHLORIDE 1,000 ML IV SCH (09:00)
[2016-09-03 09:14] LABS: ANISOCYTOSIS 4+; HYPOCHROMIA 3+; MICROCYTOSIS 2+; POLYCHROMASIA 1+
[2016-09-03 09:15] LABS: TARGET CELLS 3+
[2016-09-03] MEDS: FERROUS SO4 325 MG TABLET (FP) PO SCH (10:26)
[2016-09-03] MEDS: RANITIDINE HCL 150 MG TABLET (FP) PO SCH ×2 (10:26→22:39)
[2016-09-03] MEDS: ASCORBIC ACID 500 MG TABLET (FP) PO SCH (10:26)
[2016-09-03] MEDS ORDERED: SODIUM POLYSTYRENE SULFONATE 15 GM/60 ML BOTTLE PO ONE (10:30)
[2016-09-03] MEDS: DEXTROSE 5%-0.45% SALINE 1,000 ML IV SCH (11:20)
[2016-09-03] MEDS: POLYETHYLENE GLYCOL 3350 119 GM BTL PO SCH (11:20)
--- NOTE | 2016-09-03 11:27 | PN ---
Progress Note, Physician History of Present Illness: pulmonary alert,nad,-sob,-cp - Current Medication List Current Medications: Active Medications Acetaminophen (Tylenol -) 650 mg PO Q6H PRN PRN Reason: FEVER OR PAIN Last Admin: 08/31/16 04:47 Dose: 650 mg Al Hydroxide/Mg Hydroxide (Mylanta Oral Suspension -) 30 ml PO Q6H PRN PRN Reason: DYSPEPSIA Last Admin: 09/02/16 17:40 Dose: 30 ml Albuterol/Ipratropium (Duoneb -) 1 amp NEB Q4H PRN PRN Reason: SHORTNESS OF BREATH Last Admin: 09/03/16 06:43 Dose: 1 amp Ascorbic Acid (Vitamin C -) 500 mg PO DAILY [facility] Last Admin: 09/03/16 10:26 Dose: 500 mg Atorvastatin Calcium (Lipitor -) 10 mg PO HS [facility] Last Admin: 09/02/16 22:46 Dose: 10 mg Ferrous Sulfate (Feosol -) 325 mg PO DAILY [facility] Last Admin: 09/03/16 10:26 Dose: 325 mg Dextrose/Sodium Chloride (D5-1/2ns -) 1,000 mls @ 75 mls/hr IV ASDIR [facility] Neomycin/Polymyxin/Bacitracin (Neosporin Topical Ointment -) 1 applic TP DAILY [facility] Polyethylene Glycol (Miralax (For Daily Use) -) 17 gm PO DAILY [facility] Last Admin: 09/02/16 13:33 Dose: 17 gm Ranitidine HCl (Zantac -) 150 mg PO BID [facility] Last Admin: 09/03/16 10:26 Dose: 150 mg - Objective Vital Signs: Vital Signs Temperature 98.3 F 09/03/16 06:00 Pulse Rate 78 09/03/16 06:00 Respiratory Rate 20 09/03/16 06:00 Blood Pressure 90/48 09/03/16 06:00 O2 Sat by Pulse Oximetry (%) 97 09/02/16 21:00 Constitutional: Yes: Well Nourished, Calm Eyes: Yes: WNL HENT: Yes: WNL Neck: Yes: WNL Cardiovascular: Yes: Regular Rate and Rhythm, S1, S2 Respiratory: Yes: Diminished Gastrointestinal: Yes: Normal Bowel Sounds, Soft Extremities: Yes: WNL Edema: No Labs: CBC, BMP 09/03/16 05:35 09/03/16 05:35 INR, PTT INR 1.66 (0.82-1.09) H 08/14/16 07:55 Problem List - Problems (1) CHF (congestive heart failure) Code(s): I50.9 - HEART FAILURE, UNSPECIFIED Qualifiers: Congestive heart failure type: combined Congestive heart failure chronicity: acute on chronic Qualified Code(s): I50.43 - Acute on chronic combined systolic (congestive) and diastolic (congestive) heart failure (2) CKD (chronic kidney disease) Code(s): N18.9 - CHRONIC KIDNEY DISEASE, UNSPECIFIED Qualifiers: Chronic kidney disease stage: unspecified stage Qualified Code(s): N18.9 - Chronic kidney disease, unspecified (3) Hypotension Code(s): I95.9 - HYPOTENSION, UNSPECIFIED (4) Lactic acid blood increased Code(s): R79.89 - OTHER SPECIFIED ABNORMAL FINDINGS OF BLOOD CHEMISTRY (5) CHF exacerbation Code(s): I50.9 - HEART FAILURE, UNSPECIFIED (6) COPD (chronic obstructive pulmonary disease) Code(s): J44.9 - CHRONIC OBSTRUCTIVE PULMONARY DISEASE, UNSPECIFIED (7) COPD exacerbation Code(s): J44.1 - CHRONIC OBSTRUCTIVE PULMONARY DISEASE W (ACUTE) EXACERBATION (8) HTN (hypertension) Code(s): I10 - ESSENTIAL (PRIMARY) HYPERTENSION Assessment/Plan ASSESSMENT AND PLAN: Acute Respiratory Distress improved Acute COPD Exacerbation Acute on Chronic Severe LV Systolic Dysfunction Lactic Acidosis resolved Anemia s/p PRBC transfusions Acute on Chronic Renal Failure CAD s/p CABG Ascites Hyperkalemia - monitor urine output, creatinine - monitor H/H - inhaled bronchodilators - replete lytes - DVT/GI prophylaxis - kayexalate DR REYNOSO
[2016-09-03] MEDS ORDERED: BISACODYL 5 MG TABLET.DR (FP) PO ONE (13:33)
[2016-09-03] MEDS: ACETAMINOPHEN 325 MG TABLET (FP) PO PRN (13:37)
[2016-09-03] MEDS ORDERED: SODIUM PHOSPHATE/NA BIPHOS 133 ML ENEMA RC ONE (14:45)
[2016-09-03] MEDS ORDERED: PT OWN MED DRAWER 7, Y5N ONE ×2 (14:59→16:52)
[2016-09-03] MEDS: NEOMYCIN/POLYMYXIN/BACITRACIN (TRIPLE ANTIBIOTIC) 28 GM OINTMENT TP SCH (18:00)
[2016-09-03] MEDS: ATORVASTATIN CA 10 MG TABLET (FP) PO SCH (22:39)
[2016-09-04] MEDS: ACETAMINOPHEN 325 MG TABLET (FP) PO PRN ×2 (06:20→14:57)
[2016-09-04] MEDS: ALBUTEROL SO4 2.5/IPRATROPIUM 0.5 INH SOL 3 ML VIAL.NEB. NEB PRN (06:34)
[2016-09-04 07:06] LABS: BASOPHIL 0.6 % (0-2.0); EOSINOPHIL 1.6 % (0-4.5); MCH 21.2 pg (25.7-33.7); MCHC 28.5 g/dl (32.0-35.9); MEAN CELL VOLUME 74.4 fl (80-96); MEAN PLT VOLUME 9.6 fl (7.5-11.1); NEUTROPHILS 85.6 % (42.8-82.8); PLATELET COUNT 365 K/MM3 (134-434); RDW 29.6 % (11.9-15.9); WHITE BLOOD COUNT 17.4 K/mm3 (4.0-10.0)
[2016-09-04 07:33] LABS: ALBUMIN 2.2 g/dl (3.4-5.0); CALCIUM 7.8 mg/dL (8.5-10.1)
[2016-09-04 07:36] LABS: BILIRUBIN,TOTAL 1.9 mg/dL (0.2-1.0); COCKROFT - GAULT 22.8; CREATININE 2.2 mg/dL (0.7-1.3); TOT PROT 6.7 g/dl (6.4-8.2)
[2016-09-04] MEDS: FERROUS SO4 325 MG TABLET (FP) PO SCH (09:35)
[2016-09-04] MEDS: POLYETHYLENE GLYCOL 3350 119 GM BTL PO SCH (09:35)
[2016-09-04] MEDS: ASCORBIC ACID 500 MG TABLET (FP) PO SCH (09:35)
[2016-09-04] MEDS: RANITIDINE HCL 150 MG TABLET (FP) PO SCH ×2 (09:35→22:01)
[2016-09-04] MEDS: DEXTROSE 5%-0.45% SALINE 1,000 ML IV SCH (09:36)
--- NOTE | 2016-09-04 09:57 | PN ---
Progress Note (short form) - Note Progress Note: Chief Complaint: chf History of Present Illness: On IVF since yesterday. Worsened abdominal pain today. Tired today, but just had PT. he denies sob, chest heaviness, palpit, leg swelling ex cigs Current Medications Acetaminophen (Tylenol -) 650 mg PO Q6H PRN PRN Reason: FEVER OR PAIN Last Admin: 09/04/16 06:20 Dose: 650 mg Al Hydroxide/Mg Hydroxide (Mylanta Oral Suspension -) 30 ml PO Q6H PRN PRN Reason: DYSPEPSIA Last Admin: 09/02/16 17:40 Dose: 30 ml Albuterol/Ipratropium (Duoneb -) 1 amp NEB Q4H PRN PRN Reason: SHORTNESS OF BREATH Last Admin: 09/04/16 06:34 Dose: 1 amp Ascorbic Acid (Vitamin C -) 500 mg PO DAILY [facility] Last Admin: 09/04/16 09:35 Dose: 500 mg Atorvastatin Calcium (Lipitor -) 10 mg PO HS [facility] Last Admin: 09/03/16 22:39 Dose: 10 mg Ferrous Sulfate (Feosol -) 325 mg PO DAILY [facility] Last Admin: 09/04/16 09:35 Dose: 325 mg Dextrose/Sodium Chloride (D5-1/2ns -) 1,000 mls @ 75 mls/hr IV ASDIR [facility] Last Admin: 09/04/16 09:36 Dose: Not Given Neomycin/Polymyxin/Bacitracin (Neosporin Topical Ointment -) 1 applic TP DAILY [facility] Last Admin: 09/03/16 18:00 Dose: 1 applic Polyethylene Glycol (Miralax (For Daily Use) -) 17 gm PO DAILY [facility] Last Admin: 09/04/16 09:35 Dose: 17 gm Ranitidine HCl (Zantac -) 150 mg PO BID [facility] Last Admin: 09/04/16 09:35 Dose: 150 mg Vital Signs - 24 hr 09/03/16 09/03/16 09/03/16 10:10 10:15 13:57 Temperature 97.4 F L Pulse Rate 73 66 Respiratory 16 Rate Blood Pressure 93/60 O2 Sat by Pulse 96 96 Oximetry (%) 09/03/16 09/03/16 09/03/16 14:48 18:00 21:00 Temperature 99 F 97.0 F L Pulse Rate 77 70 Respiratory 14 18 Rate Blood Pressure 82/47 91/57 O2 Sat by Pulse 97 Oximetry (%) 09/03/16 09/04/16 09/04/16 22:00 02:00 06:00 Temperature 97.4 F L 98.3 F Pulse Rate 72 76 107 H Respiratory 20 20 20 Rate Blood Pressure 85/50 96/59 133/74 O2 Sat by Pulse Oximetry (%) Intake & Output 09/02/16 09/03/16 09/04/16 09/05/16 07:59 07:59 07:59 07:59 Intake Total 550 1030 100 Balance 550 1030 100 Weight 133 lb 3.2 oz Constitutional: Yes: No Distress, Calm Eyes: No: Sclera Icterus HENT: No: Nasal Congestion Cardiovascular: Yes: Regular Rate and Rhythm, JVD, Murmur (loud TR murmur LLSB) , S1, S2, Other (PMI non diplaced). No: Gallop Respiratory: Yes: CTA Bilaterally, Diminished (L base), Rales (L base). No: Accessory Muscle Use, Wheezes Gastrointestinal: Yes: Normal Bowel Sounds, Soft, Distention. No: Tenderness Musculoskeletal: Yes: Other (No kyphosis) Extremities: No: Cold Edema: No Integumentary: No: Jaundice Neurological: Yes: Alert. No: Seizure Psychiatric: No: Agitated Labs: CBC, BMP 09/04/16 05:35 09/04/16 05:35 Laboratory Tests 09/04/16 05:35 Total Bilirubin 1.9 H AST 49 H ALT 34 Alkaline Phosphatase 262 H Albumin 2.2 L - ....Imaging EKG: Other (tele: NSR, V-paced. 6 beat nsvt. ) Assessment/Plan Abd u/s: moderate amount of ascites in upper abdomen. Liver and spleen findings c/w cirrhosis. cath 08/02 all grafts patent (self to lad, svg to lcx, svg to rpda) Echo 07/2016 (this admit): mod lve, sev reduced LV fn (global). mild rve with mild hypo (severe TR, intrinsic RV fn likely more depressed), 1+ connie. 1+ mr, severe tr, mod phtn, pl effusion Echo 07/2015: sev lve, sev reduced lvef (global). grade 2 diastolic dysfunction. nl RV. mild connie. dilated ivc. mod mr, mod-sev tr, sev phtn, mild pr. Echo 08/03: sev LVE with severe decr EF; mild RV dil with moderate hypo; mod MR/ TR; RVSP >60 a/p: 76 yo recent smoker (quit 6 mo ago) with h/o CAD s/p CABG, ischemic CM with EF 25% s/p BiVICD with secondary severe pulmonary hypertension, prior CVA , HL, copd, CKD, bph, chronic iron deficiency anemia who p/w worsened cough, sob , hypotension and noted to have profound anemia. Pre-operative clearance/anemia. -hgb remains stable since prbcs transfused. 09/04 will recheck INR. -RCRI of 3 with decompensated chf and low bp here. Has estimated high risk for jd-operative CV complications. Would continue to optimize cardiac/pulmonary status for now. isch CMP (acute systolic CHF exacerbation) - Patient's weight actually stable as outpatient in past month. Possible pulmonary congestion on CXR. ddx infection. trace le edema. After lasix 80 mg IV in ER last night, cr improved, but sodium worsened. Now s/p 2 units of PRBC and lasix 40 mg IV x 1 yesterday 08/14 with improvement in sodium, worsened again overnight. -08/15-08/26: see prior notes -08/27: 2000 cc UOP yesterday; wt trending down (though bedscale wts); CXR has not improved much since here (slight improvement R base); bun/creat trending up slightly. This is the first time in at least 7 days that pt reports sob improving, and there is no wheezing on exam; likewise, his JVD is finally below angle of the jaw;cxr ? slightly better (overpenetrated film). Continue same milrinone, vasopressing and lasix 80 iv tid with metolazone 2.5 x 1 today, rpt cxr in am. (suspect severe TR will leave him with residual very high JVD and right sided CHF tendencies, but would like to see lungs clear radiographically and sob/wheezing improve) - 08/28: CXR improved today. BMP stable (na slightly inc again). Will cut back to bid lasix today with metolazone x 1. Will wean milrinone to 0.2. Goal is 1L negative over next 24 hrs instead of 2L. Repeat bmp in afternoon --> Will reevaluate this afternoon and consider weaning vasopressin over night and consider transition to PO diuretics tomorrow. -08/29: vol status stable, cr stable. Will begin transitioning to po med regimen. Dc milrinone today and then wean off vasopressin as bp allows. Will change to po lasix 80 bid for now and monitor vol status/cr to see if this dose needs to be adjusted -08/30: Now off milrinone. vol stable, cr stable. cxr improved. Cont lasix 80 bid po for now. titrate off vasopressin today. -08/31: Now off both milrinone and vasopressin. SBP in 90s which is his baseline. Cont lasix 80 po bid. Wt stable today but cr up a bit, will continue to monitor vol status/cr trend to see if need to increase diuretic dose. -09/01: Cr rising again today. Does not seem vol overloaded now so does not seem cardiorenal presently, possibly overdiuresed. Will hold lasix for now and monitor cr trend. Wt stable today. -09/02: Have been holding lasix due to possible overdiuresis. last dose lasix was 09/01 AM. today volume appears stable. Cr unchanged but na and bicarb improved. Does not seem vol overloaded now so does not seem cardiorenal presently, possibly overdiuresed. Will hold lasix for now and monitor cr trend. -09/03: cxr today poor quality with tele box overlying; appears similar to 08/29 with mild congestive changes and L effusion; low bp's, fell last night; acute prerenal MAKI on labs today--all suggestive of intravasc vol depletion sec to overdiuresis -appears that his current weight, cxr appearance, and JVD severity is likely his baseline, with ongoing hi right-sided pressures due to severe TR and low left-sided pressures. - D5 1/2 NS at 75 cc/hr today (hypernatremia tendencies noted). rec holding diuresis for now, then resuming maintenance po torsemide regimen (doubt will absorb lasix well) with an eye to keep him around current weight; -if he fails that as outpatient, would suggest he have chf consult for ? home inotropes (milrinone) - 09/04: s/p IVF yesterday, stopped this morning. CMP Overall stable. Will start with 100 mg po torsemide daily and readjust dosing as needed. (Had been on a total of 120 mg of lasix at home). Chest/abd CT today to assess the amount of residual pulmonary edema and ascites. Unclear whether recent worsening renal failure was due to volume status or from stopping ionotropes/ pressors. -was not on bb, aceI at home due to prior side effects of hypotension, dizziness --deferring now given low bp's -office BiV followup/optimization with dr aparicio ascites, imaging evidence of cirrhosis: -? cardiac cirrhosis from right sided chf/severe TR -chf optimization as doing -further GI/liver eval to pmd/GI abnormal alk phos, bili -both trending up -per PMD, GI CAD s/p h/o CABG 2006 - holding ASA, plavix due to initial presentation of anemia requiring transfusion. If anti-platelets can be resumed, would consider resuming ASA alone. - no angina or signs acs h/o CVA: -was on ASA, plavix --> on hold as above. V Tach: - nsvt seen on prior ICD checks and on tele here as well. - electrolyte repletion prn - con't telemetry monitoring. - will cont deferring BB while still with low bp - less PVCs on tele since stopping milrinone/treating chf PAT/PSVT - brief episodes on tele here a.e. COPD: -finished steroids, pulm following
--- NOTE | 2016-09-04 10:31 | PN ---
Progress Note, Physician History of Present Illness: PULMONARY ALERT,COMFORTABLE,-RESP DISTRESS - Current Medication List Current Medications: Active Medications Acetaminophen (Tylenol -) 650 mg PO Q6H PRN PRN Reason: FEVER OR PAIN Last Admin: 09/04/16 06:20 Dose: 650 mg Al Hydroxide/Mg Hydroxide (Mylanta Oral Suspension -) 30 ml PO Q6H PRN PRN Reason: DYSPEPSIA Last Admin: 09/02/16 17:40 Dose: 30 ml Albuterol/Ipratropium (Duoneb -) 1 amp NEB Q4H PRN PRN Reason: SHORTNESS OF BREATH Last Admin: 09/04/16 06:34 Dose: 1 amp Ascorbic Acid (Vitamin C -) 500 mg PO DAILY [facility] Last Admin: 09/04/16 09:35 Dose: 500 mg Atorvastatin Calcium (Lipitor -) 10 mg PO HS [facility] Last Admin: 09/03/16 22:39 Dose: 10 mg Ferrous Sulfate (Feosol -) 325 mg PO DAILY [facility] Last Admin: 09/04/16 09:35 Dose: 325 mg Neomycin/Polymyxin/Bacitracin (Neosporin Topical Ointment -) 1 applic TP DAILY [facility] Last Admin: 09/03/16 18:00 Dose: 1 applic Polyethylene Glycol (Miralax (For Daily Use) -) 17 gm PO DAILY [facility] Last Admin: 09/04/16 09:35 Dose: 17 gm Ranitidine HCl (Zantac -) 150 mg PO BID [facility] Last Admin: 09/04/16 09:35 Dose: 150 mg - Objective Vital Signs: Vital Signs Temperature 98.3 F 09/04/16 02:00 Pulse Rate 107 H 09/04/16 06:00 Respiratory Rate 20 09/04/16 06:00 Blood Pressure 133/74 09/04/16 06:00 O2 Sat by Pulse Oximetry (%) 97 09/03/16 21:00 Constitutional: Yes: Well Nourished, Calm Eyes: Yes: WNL HENT: Yes: WNL Neck: Yes: WNL Cardiovascular: Yes: Regular Rate and Rhythm, S1, S2 Respiratory: Yes: Rales (BIBASILAR CRACKLES) Gastrointestinal: Yes: Normal Bowel Sounds, Soft, Distention Extremities: Yes: WNL Edema: No Labs: CBC, BMP 09/04/16 05:35 09/04/16 05:35 INR, PTT INR 1.66 (0.82-1.09) H 08/14/16 07:55 Problem List - Problems (1) CHF (congestive heart failure) Code(s): I50.9 - HEART FAILURE, UNSPECIFIED Qualifiers: Congestive heart failure type: combined Congestive heart failure chronicity: acute on chronic Qualified Code(s): I50.43 - Acute on chronic combined systolic (congestive) and diastolic (congestive) heart failure (2) CKD (chronic kidney disease) Code(s): N18.9 - CHRONIC KIDNEY DISEASE, UNSPECIFIED Qualifiers: Chronic kidney disease stage: unspecified stage Qualified Code(s): N18.9 - Chronic kidney disease, unspecified (3) Hypotension Code(s): I95.9 - HYPOTENSION, UNSPECIFIED (4) Lactic acid blood increased Code(s): R79.89 - OTHER SPECIFIED ABNORMAL FINDINGS OF BLOOD CHEMISTRY (5) CHF exacerbation Code(s): I50.9 - HEART FAILURE, UNSPECIFIED (6) COPD (chronic obstructive pulmonary disease) Code(s): J44.9 - CHRONIC OBSTRUCTIVE PULMONARY DISEASE, UNSPECIFIED (7) COPD exacerbation Code(s): J44.1 - CHRONIC OBSTRUCTIVE PULMONARY DISEASE W (ACUTE) EXACERBATION (8) HTN (hypertension) Code(s): I10 - ESSENTIAL (PRIMARY) HYPERTENSION Assessment/Plan ASSESSMENT AND PLAN: Acute Respiratory Distress improved Acute COPD Exacerbation Acute on Chronic Severe LV Systolic Dysfunction Lactic Acidosis resolved Anemia s/p PRBC transfusions Acute on Chronic Renal Failure CAD s/p CABG Ascites Hyperkalemia improved post kayexalate - monitor urine output, creatinine - monitor H/H - inhaled bronchodilators - monitor lytes - DVT/GI prophylaxis DR REYNOSO
--- NOTE | 2016-09-04 12:04 | PN ---
Progress Note, Physician Chief Complaint: no distress No pain No SOB pt examined in Telemetry - Current Medication List Current Medications: Active Medications Acetaminophen (Tylenol -) 650 mg PO Q6H PRN PRN Reason: FEVER OR PAIN Last Admin: 09/04/16 06:20 Dose: 650 mg Al Hydroxide/Mg Hydroxide (Mylanta Oral Suspension -) 30 ml PO Q6H PRN PRN Reason: DYSPEPSIA Last Admin: 09/02/16 17:40 Dose: 30 ml Albuterol/Ipratropium (Duoneb -) 1 amp NEB Q4H PRN PRN Reason: SHORTNESS OF BREATH Last Admin: 09/04/16 06:34 Dose: 1 amp Ascorbic Acid (Vitamin C -) 500 mg PO DAILY [facility] Last Admin: 09/04/16 09:35 Dose: 500 mg Atorvastatin Calcium (Lipitor -) 10 mg PO HS [facility] Last Admin: 09/03/16 22:39 Dose: 10 mg Ferrous Sulfate (Feosol -) 325 mg PO DAILY [facility] Last Admin: 09/04/16 09:35 Dose: 325 mg Neomycin/Polymyxin/Bacitracin (Neosporin Topical Ointment -) 1 applic TP DAILY [facility] Last Admin: 09/03/16 18:00 Dose: 1 applic Polyethylene Glycol (Miralax (For Daily Use) -) 17 gm PO DAILY [facility] Last Admin: 09/04/16 09:35 Dose: 17 gm Ranitidine HCl (Zantac -) 150 mg PO BID [facility] Last Admin: 09/04/16 09:35 Dose: 150 mg Torsemide (Demadex -) 100 mg PO DAILY [facility] - Objective Vital Signs: Vital Signs Temperature 98.2 F 09/04/16 08:00 Pulse Rate 102 H 09/04/16 08:00 Respiratory Rate 18 09/04/16 08:00 Blood Pressure 102/60 09/04/16 08:00 O2 Sat by Pulse Oximetry (%) 97 09/03/16 21:00 Constitutional: Yes: No Distress Cardiovascular: Yes: Regular Rate and Rhythm, Murmur Respiratory: Yes: Diminished. No: Rales, Rhonchi Gastrointestinal: Yes: Normal Bowel Sounds, Soft. No: Distention, Tenderness Edema: No Labs: CBC, BMP 09/04/16 05:35 09/04/16 05:35 INR, PTT INR 1.66 (0.82-1.09) H 08/14/16 07:55 Problem List - Problems (1) Anemia Code(s): D64.9 - ANEMIA, UNSPECIFIED Qualifiers: Anemia type: unspecified type Qualified Code(s): D64.9 - Anemia, unspecified (2) CHF (congestive heart failure) Code(s): I50.9 - HEART FAILURE, UNSPECIFIED Qualifiers: Congestive heart failure type: combined Congestive heart failure chronicity: acute on chronic Qualified Code(s): I50.43 - Acute on chronic combined systolic (congestive) and diastolic (congestive) heart failure (3) CKD (chronic kidney disease) Code(s): N18.9 - CHRONIC KIDNEY DISEASE, UNSPECIFIED Qualifiers: Chronic kidney disease stage: unspecified stage Qualified Code(s): N18.9 - Chronic kidney disease, unspecified (4) Hypotension Code(s): I95.9 - HYPOTENSION, UNSPECIFIED (5) CHF exacerbation Code(s): I50.9 - HEART FAILURE, UNSPECIFIED (6) COPD (chronic obstructive pulmonary disease) Code(s): J44.9 - CHRONIC OBSTRUCTIVE PULMONARY DISEASE, UNSPECIFIED Assessment/Plan PLAN Lasix on hold pt euvolemic monitor renal function -- worsening Nebs as needed PT eval BP monitoring OOB Pt is DNR/DNI
[2016-09-04] MEDS: TORSEMIDE 100 MG TABLET PO SCH (12:37)
[2016-09-04] MEDS: NEOMYCIN/POLYMYXIN/BACITRACIN (TRIPLE ANTIBIOTIC) 28 GM OINTMENT TP SCH (14:12)
[2016-09-04 16:53] LABS: CALCIUM 7.3 mg/dL (8.5-10.1); COCKROFT - GAULT 26.85
[2016-09-04 20:13] LABS: URINE APPEARANCE CLEAR; URINE BILIRUBIN NEGATIVE (NEGATIVE); URINE COLOR LTYELLOW; URINE GLUCOSE (UA) NEGATIVE (NEGATIVE); URINE KETONE NEGATIVE (NEGATIVE); URINE NITRITE NEGATIVE (NEGATIVE); URINE PROTEIN NEGATIVE (NEGATIVE); URINE UROBILINOGEN NEGATIVE E.U./dl (0.2-1.0)
[2016-09-04 20:15] LABS: URINE BLOOD 1+ (NEGATIVE); URINE LEUK ESTERASE 2+ (NEGATIVE)
[2016-09-04 20:43] LABS: URINE BACTERIA RARE /hpf (NONE SEEN); URINE HYALINE CAST 1 /lpf; URINE WBC 28 /hpf (3-5)
[2016-09-04] MEDS: ATORVASTATIN CA 10 MG TABLET (FP) PO SCH (22:01)
[2016-09-05 08:18] LABS: INR 1.59 (0.82-1.09); PROTHROMBIN TIME (PATIENT) 17.6 SEC (9.98-11.88)
[2016-09-05 08:45] LABS: ALBUMIN 1.9 g/dl (3.4-5.0); CALCIUM 7.3 mg/dL (8.5-10.1); MAGNESIUM 2.6 mg/dL (1.8-2.4)
[2016-09-05 08:49] LABS: BILIRUBIN,TOTAL 2.1 mg/dL (0.2-1.0); COCKROFT - GAULT 29.83; CREATININE 1.8 mg/dL (0.7-1.3); TOT PROT 5.9 g/dl (6.4-8.2)
--- NOTE | 2016-09-05 10:40 | PN ---
Progress Note (short form) - Note Progress Note: CC: anemia/chf exacerbation, no cigs S: no cp, palps, dizziness, sob, orthopnea, le edema; eating well Vital Signs Period Temp Pulse Resp BP Sys/Vega Pulse Ox Last 24 Hr 97.5 F-101 F 76-92 18-20 84-99/42-64 97 Constitutional: Yes: No Distress Eyes: No: Sclera Icterus Respiratory: Yes: scattered rhonchi No: Accessory Muscle Use, Wheezes Gastrointestinal: Yes: Normal Bowel Sounds. no Distention, No Hepatomegaly, Palpable Mass, Tenderness Cardiovascular: Yes: Regular Rate and Rhythm (soft heart sounds) Heart Sounds: Yes: S1, S2. No: Gallop Murmur: 2/6 high pitched sys murmur at lsb and apex Extremities: No: Cold, Cyanosis Edema: no le edema/c/c Peripheral Pulses:+dp pt Integumentary: No: Jaundice diaphoresis Neurological: Yes: Alert, appropriate Psychiatric: No: Agitated Current Medications Generic Name Dose Route Start Last Admin Trade Name Darrylq PRN Reason Stop Dose Admin Acetaminophen 650 mg 09/04/16 14:47 09/04/16 14:57 Tylenol - PO 650 mg Q6H PRN Administration FEVER OR PAIN Al Hydroxide/Mg Hydroxide 30 ml 08/30/16 16:05 09/02/16 17:40 Mylanta Oral Suspension - PO 30 ml Q6H PRN Administration DYSPEPSIA Ascorbic Acid 500 mg 08/31/16 10:00 09/04/16 09:35 Vitamin C - PO 500 mg DAILY [facility] Administration Atorvastatin Calcium 10 mg 08/30/16 22:00 09/04/16 22:01 Lipitor - PO 10 mg HS [facility] Administration Ferrous Sulfate 325 mg 08/31/16 10:00 09/04/16 09:35 Feosol - PO 325 mg DAILY [facility] Administration Neomycin/Polymyxin/Bacitracin 1 applic 09/03/16 10:00 09/04/16 14:12 Neosporin Topical Ointment - TP 1 applic DAILY [facility] Administration Polyethylene Glycol 17 gm 08/31/16 10:00 09/04/16 09:35 Miralax (For Daily Use) - PO 17 gm DAILY [facility] Administration Ranitidine HCl 150 mg 08/30/16 22:00 09/04/16 22:01 Zantac - PO 150 mg BID [facility] Administration Torsemide 100 mg 09/04/16 11:45 09/04/16 12:37 Demadex - PO 100 mg DAILY [facility] Administration CBC, BMP 09/04/16 05:35 09/05/16 06:20 tele: v-paced, occ pvcs, one run of nsvt Abd u/a: moderate amount of ascites in upper abdomen. Liver and spleen findings c/w cirrhosis. cath 08/02 all grafts patent (self to lad, svg to lcx, svg to rpda) Echo 07/2016 (this admit): mod lve, sev reduced LV fn (global). mild rve with mild hypo (severe TR, intrinsic RV fn likely more depressed), 1+ connie. 1+ mr, severe tr, mod phtn, pl effusion Echo 07/2015: sev lve, sev reduced lvef (global). grade 2 diastolic dysfunction. nl RV. mild connie. dilated ivc. mod mr, mod-sev tr, sev phtn, mild pr. Echo 08/03: sev LVE with severe decr EF; mild RV dil with moderate hypo; mod MR/ TR; RVSP >60 ct abd/plvs: +ascites, 3.4 cm aaa a/p: 76 yo recent smoker (quit 6 mo ago) with h/o CAD s/p CABG, ischemic CM with EF 25% s/p BiVICD with secondary severe pulmonary hypertension, prior CVA , HL, copd, CKD, bph, chronic iron deficiency anemia who p/w worsened cough, sob , hypotension and noted to have profound anemia. Pre-operative clearance/anemia. -hgb remains stable since prbcs transfused. 09/04 will recheck INR. -RCRI of 3 with decompensated chf and low bp here. Has estimated high risk for jd-operative CV complications. Would continue to optimize cardiac/pulmonary status for now. isch CMP (acute systolic CHF exacerbation) - Patient's weight actually stable as outpatient in past month. Possible pulmonary congestion on CXR. ddx infection. trace le edema. After lasix 80 mg IV in ER last night, cr improved, but sodium worsened. Now s/p 2 units of PRBC and lasix 40 mg IV x 1 yesterday 08/14 with improvement in sodium, worsened again overnight. -08/15-08/26: see prior notes -08/27: 2000 cc UOP yesterday; wt trending down (though bedscale wts); CXR has not improved much since here (slight improvement R base); bun/creat trending up slightly. This is the first time in at least 7 days that pt reports sob improving, and there is no wheezing on exam; likewise, his JVD is finally below angle of the jaw;cxr ? slightly better (overpenetrated film). Continue same milrinone, vasopressing and lasix 80 iv tid with metolazone 2.5 x 1 today, rpt cxr in am. (suspect severe TR will leave him with residual very high JVD and right sided CHF tendencies, but would like to see lungs clear radiographically and sob/wheezing improve) - 08/28: CXR improved today. BMP stable (na slightly inc again). Will cut back to bid lasix today with metolazone x 1. Will wean milrinone to 0.2. Goal is 1L negative over next 24 hrs instead of 2L. Repeat bmp in afternoon --> Will reevaluate this afternoon and consider weaning vasopressin over night and consider transition to PO diuretics tomorrow. -08/29: vol status stable, cr stable. Will begin transitioning to po med regimen. Dc milrinone today and then wean off vasopressin as bp allows. Will change to po lasix 80 bid for now and monitor vol status/cr to see if this dose needs to be adjusted -08/30: Now off milrinone. vol stable, cr stable. cxr improved. Cont lasix 80 bid po for now. titrate off vasopressin today. -08/31: Now off both milrinone and vasopressin. SBP in 90s which is his baseline. Cont lasix 80 po bid. Wt stable today but cr up a bit, will continue to monitor vol status/cr trend to see if need to increase diuretic dose. -09/01: Cr rising again today. Does not seem vol overloaded now so does not seem cardiorenal presently, possibly overdiuresed. Will hold lasix for now and monitor cr trend. Wt stable today. -09/02: Have been holding lasix due to possible overdiuresis. last dose lasix was 09/01 AM. today volume appears stable. Cr unchanged but na and bicarb improved. Does not seem vol overloaded now so does not seem cardiorenal presently, possibly overdiuresed. Will hold lasix for now and monitor cr trend. -09/03: cxr today poor quality with tele box overlying; appears similar to 08/29 with mild congestive changes and L effusion; low bp's, fell last night; acute prerenal MAKI on labs today--all suggestive of intravasc vol depletion sec to overdiuresis -appears that his current weight, cxr appearance, and JVD severity is likely his baseline, with ongoing hi right-sided pressures due to severe TR and low left-sided pressures. - D5 1/2 NS at 75 cc/hr today (hypernatremia tendencies noted). rec holding diuresis for now, then resuming maintenance po torsemide regimen (doubt will absorb lasix well) with an eye to keep him around current weight; -if he fails that as outpatient, would suggest he have chf consult for ? home inotropes (milrinone) - 09/04: s/p IVF yesterday, stopped this morning. CMP Overall stable. Will start with 100 mg po torsemide daily and readjust dosing as needed. (Had been on a total of 120 mg of lasix at home). Chest/abd CT today to assess the amount of residual pulmonary edema and ascites. Unclear whether recent worsening renal failure was due to volume status or from stopping ionotropes/ pressors. -09/05: cr improving, cont po torsemide 100 qd -was not on bb, aceI at home due to prior side effects of hypotension, dizziness --deferring now given low bp's -office BiV followup/optimization with dr aparicio ascites, imaging evidence of cirrhosis: -? cardiac cirrhosis from right sided chf/severe TR -chf optimization as doing -further GI/liver eval to pmd/GI CAD s/p h/o CABG 2006 - holding ASA, plavix due to initial presentation of anemia requiring transfusion. If anti-platelets can be resumed, would consider resuming ASA alone. - no angina or signs acs h/o CVA: -was on ASA, plavix --> on hold as above. V Tach: - nsvt seen on prior ICD checks and on tele here as well. - electrolyte repletion prn - con't telemetry monitoring. - will cont deferring BB while still with low bp PAT/PSVT - brief episodes on tele here a.e. COPD: -finished steroids, pulm following
[2016-09-05] MEDS: FERROUS SO4 325 MG TABLET (FP) PO SCH (11:10)
[2016-09-05] MEDS: ASCORBIC ACID 500 MG TABLET (FP) PO SCH (11:10)
[2016-09-05] MEDS: RANITIDINE HCL 150 MG TABLET (FP) PO SCH ×2 (11:11→21:24)
--- NOTE | 2016-09-05 11:17 | PN ---
Progress Note, Physician History of Present Illness: pulmonary alert,nad.laying in bed,denies sob.+episode of v-tac last night - Current Medication List Current Medications: Active Medications Acetaminophen (Tylenol -) 650 mg PO Q6H PRN PRN Reason: FEVER OR PAIN Last Admin: 09/04/16 14:57 Dose: 650 mg Al Hydroxide/Mg Hydroxide (Mylanta Oral Suspension -) 30 ml PO Q6H PRN PRN Reason: DYSPEPSIA Last Admin: 09/02/16 17:40 Dose: 30 ml Ascorbic Acid (Vitamin C -) 500 mg PO DAILY [facility] Last Admin: 09/05/16 11:10 Dose: 500 mg Atorvastatin Calcium (Lipitor -) 10 mg PO HS [facility] Last Admin: 09/04/16 22:01 Dose: 10 mg Ferrous Sulfate (Feosol -) 325 mg PO DAILY [facility] Last Admin: 09/05/16 11:10 Dose: 325 mg Neomycin/Polymyxin/Bacitracin (Neosporin Topical Ointment -) 1 applic TP DAILY [facility] Last Admin: 09/04/16 14:12 Dose: 1 applic Polyethylene Glycol (Miralax (For Daily Use) -) 17 gm PO DAILY [facility] Last Admin: 09/04/16 09:35 Dose: 17 gm Ranitidine HCl (Zantac -) 150 mg PO BID [facility] Last Admin: 09/05/16 11:11 Dose: 150 mg Torsemide (Demadex -) 100 mg PO DAILY [facility] Last Admin: 09/04/16 12:37 Dose: 100 mg - Objective Vital Signs: Vital Signs Temperature 99.3 F 09/05/16 08:46 Pulse Rate 88 09/05/16 08:46 Respiratory Rate 20 09/05/16 08:46 Blood Pressure 96/57 09/05/16 08:46 O2 Sat by Pulse Oximetry (%) 97 09/04/16 21:00 Constitutional: Yes: Well Nourished, Calm Eyes: Yes: WNL HENT: Yes: WNL Neck: Yes: WNL Cardiovascular: Yes: Regular Rate and Rhythm, S1, S2 Respiratory: Yes: Rales (bibasilar crackles) Gastrointestinal: Yes: Normal Bowel Sounds, Soft Extremities: Yes: WNL Edema: No Labs: CBC, BMP 09/05/16 06:20 INR, PTT INR 1.59 (0.82-1.09) H 09/05/16 06:20 Problem List - Problems (1) CHF (congestive heart failure) Code(s): I50.9 - HEART FAILURE, UNSPECIFIED Qualifiers: Congestive heart failure type: combined Congestive heart failure chronicity: acute on chronic Qualified Code(s): I50.43 - Acute on chronic combined systolic (congestive) and diastolic (congestive) heart failure (2) CKD (chronic kidney disease) Code(s): N18.9 - CHRONIC KIDNEY DISEASE, UNSPECIFIED Qualifiers: Chronic kidney disease stage: unspecified stage Qualified Code(s): N18.9 - Chronic kidney disease, unspecified (3) Hypotension Code(s): I95.9 - HYPOTENSION, UNSPECIFIED (4) Lactic acid blood increased Code(s): R79.89 - OTHER SPECIFIED ABNORMAL FINDINGS OF BLOOD CHEMISTRY (5) CHF exacerbation Code(s): I50.9 - HEART FAILURE, UNSPECIFIED (6) COPD (chronic obstructive pulmonary disease) Code(s): J44.9 - CHRONIC OBSTRUCTIVE PULMONARY DISEASE, UNSPECIFIED (7) COPD exacerbation Code(s): J44.1 - CHRONIC OBSTRUCTIVE PULMONARY DISEASE W (ACUTE) EXACERBATION (8) HTN (hypertension) Code(s): I10 - ESSENTIAL (PRIMARY) HYPERTENSION Assessment/Plan ASSESSMENT AND PLAN: Acute Respiratory Distress improved Acute COPD Exacerbation improving Acute on Chronic Severe LV Systolic Dysfunction Lactic Acidosis resolved Anemia s/p PRBC transfusions Acute on Chronic Renal Failure CAD s/p CABG Ascites Hyperkalemia improved post kayexalate Cardiac arrythmia - monitor urine output, creatinine - monitor H/H - inhaled bronchodilators - monitor lytes - DVT/GI prophylaxis - Cardiology f/u DR REYNOSO
--- NOTE | 2016-09-05 11:43 | PN ---
Progress Note, Physician Chief Complaint: Had temp yesterday No cough or SOB blood cultures , UA and urine culture done On PO Torsemide - Current Medication List Current Medications: Active Medications Acetaminophen (Tylenol -) 650 mg PO Q6H PRN PRN Reason: FEVER OR PAIN Last Admin: 09/04/16 14:57 Dose: 650 mg Al Hydroxide/Mg Hydroxide (Mylanta Oral Suspension -) 30 ml PO Q6H PRN PRN Reason: DYSPEPSIA Last Admin: 09/02/16 17:40 Dose: 30 ml Ascorbic Acid (Vitamin C -) 500 mg PO DAILY [facility] Last Admin: 09/05/16 11:10 Dose: 500 mg Atorvastatin Calcium (Lipitor -) 10 mg PO HS [facility] Last Admin: 09/04/16 22:01 Dose: 10 mg Ferrous Sulfate (Feosol -) 325 mg PO DAILY [facility] Last Admin: 09/05/16 11:10 Dose: 325 mg Neomycin/Polymyxin/Bacitracin (Neosporin Topical Ointment -) 1 applic TP DAILY [facility] Last Admin: 09/04/16 14:12 Dose: 1 applic Polyethylene Glycol (Miralax (For Daily Use) -) 17 gm PO DAILY [facility] Last Admin: 09/04/16 09:35 Dose: 17 gm Ranitidine HCl (Zantac -) 150 mg PO BID [facility] Last Admin: 09/05/16 11:11 Dose: 150 mg Torsemide (Demadex -) 100 mg PO DAILY [facility] Last Admin: 09/04/16 12:37 Dose: 100 mg - Objective Vital Signs: Vital Signs Temperature 99.3 F 09/05/16 08:46 Pulse Rate 88 09/05/16 08:46 Respiratory Rate 20 09/05/16 08:46 Blood Pressure 96/57 09/05/16 08:46 O2 Sat by Pulse Oximetry (%) 97 09/04/16 21:00 Constitutional: Yes: No Distress Cardiovascular: Yes: Regular Rate and Rhythm, Murmur Respiratory: Yes: Diminished Gastrointestinal: Yes: Normal Bowel Sounds, Soft. No: Distention, Tenderness Edema: No Labs: CBC, BMP 09/04/16 05:35 09/05/16 06:20 INR, PTT INR 1.59 (0.82-1.09) H 09/05/16 06:20 Problem List - Problems (1) Anemia Code(s): D64.9 - ANEMIA, UNSPECIFIED Qualifiers: Anemia type: unspecified type Qualified Code(s): D64.9 - Anemia, unspecified (2) CHF (congestive heart failure) Code(s): I50.9 - HEART FAILURE, UNSPECIFIED Qualifiers: Congestive heart failure type: combined Congestive heart failure chronicity: acute on chronic Qualified Code(s): I50.43 - Acute on chronic combined systolic (congestive) and diastolic (congestive) heart failure (3) CKD (chronic kidney disease) Code(s): N18.9 - CHRONIC KIDNEY DISEASE, UNSPECIFIED Qualifiers: Chronic kidney disease stage: unspecified stage Qualified Code(s): N18.9 - Chronic kidney disease, unspecified (4) Hypotension Code(s): I95.9 - HYPOTENSION, UNSPECIFIED (5) CHF exacerbation Code(s): I50.9 - HEART FAILURE, UNSPECIFIED (6) COPD (chronic obstructive pulmonary disease) Code(s): J44.9 - CHRONIC OBSTRUCTIVE PULMONARY DISEASE, UNSPECIFIED (7) Fever Code(s): R50.9 - FEVER, UNSPECIFIED Assessment/Plan PLAN on PO Torsemide pt euvolemic monitor renal function -- better empiric antibiotics PT eval Spoke with daughter if negative cultures, will dc home tomorrow , will need wheelchair Nebs as needed PT eval BP monitoring OOB Pt is DNR/DNI
[2016-09-05] MEDS: TORSEMIDE 100 MG TABLET PO SCH (12:55)
[2016-09-05] MEDS: POLYETHYLENE GLYCOL 3350 119 GM BTL PO SCH (12:55)
[2016-09-05] MEDS ORDERED: LEVOFLOXACIN 500 MG IVPB 100 ML IVPB ONE (17:12)
[2016-09-05] MEDS: NEOMYCIN/POLYMYXIN/BACITRACIN (TRIPLE ANTIBIOTIC) 28 GM OINTMENT TP SCH (17:56)
[2016-09-05] MEDS: ACETAMINOPHEN 325 MG TABLET (FP) PO PRN (20:10)
[2016-09-05] MEDS: MAG HYDROX/AL HYDROX/SIMETH 30 ML UNIT-DOSE CUP PO PRN (20:11)
[2016-09-05] MEDS: ATORVASTATIN CA 10 MG TABLET (FP) PO SCH (21:24)
[2016-09-06] MEDS ORDERED: PT OWN MED DRAWER 7, Y5N ONE (07:56)
[2016-09-06 08:22] LABS: CALCIUM 7.6 mg/dL (8.5-10.1); COCKROFT - GAULT 27.01
[2016-09-06 08:25] LABS: BILIRUBIN,TOTAL 2.1 mg/dL (0.2-1.0); TOT PROT 6.5 g/dl (6.4-8.2)
[2016-09-06] MEDS: RANITIDINE HCL 150 MG TABLET (FP) PO SCH (09:33)
[2016-09-06] MEDS: POLYETHYLENE GLYCOL 3350 119 GM BTL PO SCH (09:33)
[2016-09-06] MEDS: TORSEMIDE 100 MG TABLET PO SCH (09:33)
[2016-09-06] MEDS: ASCORBIC ACID 500 MG TABLET (FP) PO SCH (09:33)
[2016-09-06] MEDS: FERROUS SO4 325 MG TABLET (FP) PO SCH (09:33)
[2016-09-06] MEDS: NEOMYCIN/POLYMYXIN/BACITRACIN (TRIPLE ANTIBIOTIC) 28 GM OINTMENT TP SCH (09:38)
[2016-09-06] MEDS ORDERED: LEVOFLOXACIN 250 MG IVPB 50 ML IVPB SCH (10:00)
--- NOTE | 2016-09-06 10:51 | PN ---
Progress Note (short form) - Note Progress Note: CC: anemia/chf exacerbation, no cigs S: no cp, palps, dizziness, sob, orthopnea, le edema; eating well Vital Signs Period Temp Pulse Resp BP Sys/Vega Pulse Ox Last 24 Hr 97.2 F-98.1 F 75-81 18-20 81-92/47-62 96 Constitutional: Yes: No Distress Eyes: No: Sclera Icterus Respiratory: Yes: scattered rhonchi No: Accessory Muscle Use, Wheezes Gastrointestinal: Yes: Normal Bowel Sounds. no Distention, No Hepatomegaly, Palpable Mass, Tenderness Cardiovascular: Yes: Regular Rate and Rhythm (soft heart sounds) Heart Sounds: Yes: S1, S2. No: Gallop Murmur: 2/6 high pitched sys murmur at lsb and apex Extremities: No: Cold, Cyanosis Edema: no le edema/c/c Peripheral Pulses:+dp pt Integumentary: No: Jaundice diaphoresis Neurological: Yes: Alert, appropriate Psychiatric: No: Agitated Current Medications Generic Name Dose Route Start Last Admin Trade Name Freq PRN Reason Stop Dose Admin Acetaminophen 650 mg 09/04/16 14:47 09/05/16 20:10 Tylenol - PO 650 mg Q6H PRN Administration FEVER OR PAIN Al Hydroxide/Mg Hydroxide 30 ml 08/30/16 16:05 09/05/16 20:11 Mylanta Oral Suspension - PO 30 ml Q6H PRN Administration DYSPEPSIA Ascorbic Acid 500 mg 08/31/16 10:00 09/06/16 09:33 Vitamin C - PO 500 mg DAILY [place] Administration Atorvastatin Calcium 10 mg 08/30/16 22:00 09/05/16 21:24 Lipitor - PO 10 mg HS [place] Administration Ferrous Sulfate 325 mg 08/31/16 10:00 09/06/16 09:33 Feosol - PO 325 mg DAILY [place] Administration Levofloxacin 50 mls @ 50 mls/hr 09/06/16 10:00 09/06/16 09:36 Levaquin 250 Mg Premixed Ivpb - IVPB 50 mls/hr DAILY [place] Administration Neomycin/Polymyxin/Bacitracin 1 applic 09/03/16 10:00 09/06/16 09:38 Neosporin Topical Ointment - TP 1 applic DAILY [place] Administration Polyethylene Glycol 17 gm 08/31/16 10:00 09/06/16 09:33 Miralax (For Daily Use) - PO Not Given DAILY [place] Ranitidine HCl 150 mg 08/30/16 22:00 09/06/16 09:33 Zantac - PO 150 mg BID [place] Administration Torsemide 100 mg 09/04/16 11:45 09/06/16 09:33 Demadex - PO 100 mg DAILY [place] Administration CBC, BMP 09/04/16 05:35 09/06/16 06:11 tele: v-paced, occ pvcs, brief nsvt Abd u/a: moderate amount of ascites in upper abdomen. Liver and spleen findings c/w cirrhosis. cath 08/02 all grafts patent (self to lad, svg to lcx, svg to rpda) Echo 07/2016 (this admit): mod lve, sev reduced LV fn (global). mild rve with mild hypo (severe TR, intrinsic RV fn likely more depressed), 1+ connie. 1+ mr, severe tr, mod phtn, pl effusion Echo 07/2015: sev lve, sev reduced lvef (global). grade 2 diastolic dysfunction. nl RV. mild connie. dilated ivc. mod mr, mod-sev tr, sev phtn, mild pr. Echo 08/03: sev LVE with severe decr EF; mild RV dil with moderate hypo; mod MR/ TR; RVSP >60 ct abd/plvs: +ascites, 3.4 cm aaa a/p: 76 yo recent smoker (quit 6 mo ago) with h/o CAD s/p CABG, ischemic CM with EF 25% s/p BiVICD with secondary severe pulmonary hypertension, prior CVA , HL, copd, CKD, bph, chronic iron deficiency anemia who p/w worsened cough, sob , hypotension and noted to have profound anemia. Pre-operative clearance/anemia. -hgb remains stable since prbcs transfused. -GI w/u on hold due to CHF isch CMP (acute systolic CHF exacerbation) - Patient's weight actually stable as outpatient in past month. Possible pulmonary congestion on CXR. ddx infection. trace le edema. After lasix 80 mg IV in ER last night, cr improved, but sodium worsened. Now s/p 2 units of PRBC and lasix 40 mg IV x 1 yesterday 08/14 with improvement in sodium, worsened again overnight. -08/15-08/26: see prior notes -08/27: 2000 cc UOP yesterday; wt trending down (though bedscale wts); CXR has not improved much since here (slight improvement R base); bun/creat trending up slightly. This is the first time in at least 7 days that pt reports sob improving, and there is no wheezing on exam; likewise, his JVD is finally below angle of the jaw;cxr ? slightly better (overpenetrated film). Continue same milrinone, vasopressing and lasix 80 iv tid with metolazone 2.5 x 1 today, rpt cxr in am. (suspect severe TR will leave him with residual very high JVD and right sided CHF tendencies, but would like to see lungs clear radiographically and sob/wheezing improve) - 08/28: CXR improved today. BMP stable (na slightly inc again). Will cut back to bid lasix today with metolazone x 1. Will wean milrinone to 0.2. Goal is 1L negative over next 24 hrs instead of 2L. Repeat bmp in afternoon --> Will reevaluate this afternoon and consider weaning vasopressin over night and consider transition to PO diuretics tomorrow. -08/29: vol status stable, cr stable. Will begin transitioning to po med regimen. Dc milrinone today and then wean off vasopressin as bp allows. Will change to po lasix 80 bid for now and monitor vol status/cr to see if this dose needs to be adjusted -08/30: Now off milrinone. vol stable, cr stable. cxr improved. Cont lasix 80 bid po for now. titrate off vasopressin today. -08/31: Now off both milrinone and vasopressin. SBP in 90s which is his baseline. Cont lasix 80 po bid. Wt stable today but cr up a bit, will continue to monitor vol status/cr trend to see if need to increase diuretic dose. -09/01: Cr rising again today. Does not seem vol overloaded now so does not seem cardiorenal presently, possibly overdiuresed. Will hold lasix for now and monitor cr trend. Wt stable today. -09/02: Have been holding lasix due to possible overdiuresis. last dose lasix was 09/01 AM. today volume appears stable. Cr unchanged but na and bicarb improved. Does not seem vol overloaded now so does not seem cardiorenal presently, possibly overdiuresed. Will hold lasix for now and monitor cr trend. -09/03: cxr today poor quality with tele box overlying; appears similar to 08/29 with mild congestive changes and L effusion; low bp's, fell last night; acute prerenal MAKI on labs today--all suggestive of intravasc vol depletion sec to overdiuresis -appears that his current weight, cxr appearance, and JVD severity is likely his baseline, with ongoing hi right-sided pressures due to severe TR and low left-sided pressures. - D5 1/2 NS at 75 cc/hr today (hypernatremia tendencies noted). rec holding diuresis for now, then resuming maintenance po torsemide regimen (doubt will absorb lasix well) with an eye to keep him around current weight; -if he fails that as outpatient, would suggest he have chf consult for ? home inotropes (milrinone) - 09/04: s/p IVF yesterday, stopped this morning. CMP Overall stable. Will start with 100 mg po torsemide daily and readjust dosing as needed. (Had been on a total of 120 mg of lasix at home). Chest/abd CT today to assess the amount of residual pulmonary edema and ascites. Unclear whether recent worsening renal failure was due to volume status or from stopping ionotropes/ pressors. -09/05-: vol stable, cr stable, cont po torsemide 100 qd -was not on bb, aceI at home due to prior side effects of hypotension, dizziness --deferring now given low bp's still -office BiV followup/optimization with dr aparicio ascites, imaging evidence of cirrhosis: -? cardiac cirrhosis from right sided chf/severe TR -chf optimization as doing -further GI/liver eval to pmd/GI CAD s/p h/o CABG 2006 - holding ASA, plavix due to initial presentation of anemia requiring transfusion. If anti-platelets can be resumed, would consider resuming ASA alone. - no angina or signs acs h/o CVA: -was on ASA, plavix --> on hold as above. V Tach: - nsvt seen on prior ICD checks and on tele here as well. - electrolyte repletion prn - con't telemetry monitoring. - will cont deferring BB while still with low bp PAT/PSVT - brief episodes on tele here a.e. COPD: -finished steroids, pulm following infection, uti: -on abx now
[2016-09-06 11:02] VITALS: BP 90/52; PULSE 78; TEMP 97
--- NOTE | 2016-09-06 11:12 | DS ---
Physical Examination Vital Signs: Vital Signs Temperature 97 F L 09/06/16 09:00 Pulse Rate 78 09/06/16 09:00 Respiratory Rate 18 09/06/16 09:00 Blood Pressure 90/52 09/06/16 09:00 O2 Sat by Pulse Oximetry (%) 96 09/05/16 21:00 Constitutional: Yes: No Distress, Calm Cardiovascular: Yes: Regular Rate and Rhythm, Murmur Respiratory: Yes: CTA Bilaterally Gastrointestinal: Yes: Normal Bowel Sounds, Soft. No: Distention, Tenderness Edema: No Labs: CBC, BMP 09/04/16 05:35 09/06/16 06:11 Discharge Summary Reason For Visit: CHF,ANEMIA,CKD Current Active Problems Anemia (Acute) CHF (congestive heart failure) (Acute) CKD (chronic kidney disease) (Acute) Cellulitis of knee, left (Acute) Fever (Acute) Hypotension (Acute) Lactic acid blood increased (Acute) Pacemaker (Acute) Hospital Course: - Admission Chief Complaint: sob/ weakness History of Present Illness: Pt 76y with hx of copd, chf - very low EF, s/p PM, CVA with residual left sided weakness, htn, hl, presented with complaint of general weakness, sob/ cough productive of yellowish sputum for several days w/o fevers,chills pt also complained of increased leg swelling w/o any pain. In er pt noted to be in hypotensive/ arf-- given fluids work up also showed worsening of chf lactic acid also elevated. Pt also to be transfused as hb around 6-- and to be admitted to icu. guiac -ve Pt seen by me in icu -- discussed with er physician. chart reviewed. pt known to me from office -- last visit 05/08 pt continue to smoke. pt denies any blood in stools. cxr - consistent with chf. HOSPITALIZATION COURSE Pt admitted for acute CHF and anemia-- seen by Cardiology, Pulmonary and GI-- Was initially admitted to ICU-- placed on Milrinone drip -- received blood transfusions. Pt has low EF , was initially on IV lasix-- diuresed well-- creatinine started to get worse-- changed over to Torsemide-- tolerating it well. Creatinine at baseline No ACEI or ARB-- due to renal function and low BP. Pt is deconditioned and needs a wheelchair and hospital bed for home. He will be getting VNS at home and home PT Advance directives-- Pt is DNR/DNI-- spoke with family He will need to follow up with Cardiology and me/Dr Driscoll in the office Condition: Improved - Instructions Referrals: Yamileth Bella MD [Primary Care Provider] - 2 Weeks Félix Alston MD [Staff Physician] - 1 Week Disposition: HOME - Home Medications Comprehensive Discharge Medication List: Ambulatory Orders Atorvastatin Ca [Lipitor] 10 mg PO HS 02/08/14 Ranitidine [Zantac -] 150 mg PO DAILY 02/08/14 Ascorbic Acid [Vitamin C -] 500 mg PO DAILY #30 tablet 09/06/16 Ferrous Sulfate [Feosol] 325 mg PO DAILY #30 tab 09/06/16 Levofloxacin [Levaquin -] 250 mg PO DAILY #5 tablet 09/06/16 Polyethylene Glycol 3350 [Miralax 119 gm Btl -] 17 gm PO DAILY #1 bottle Torsemide [Demadex -] 100 mg PO DAILY #90 tablet 09/06/16
== END 2016-09-06 13:40 | disposition home or self-care (01) | DRG 291 ==
LOC: JER 15:02 → JERBED 16:52 → JICU 19:18 → J4W 08-20 19:52 → JICU 08-25 12:35 → J4W 08-31 20:18
PROVIDERS: ADMIT Internal Medicine; ATTEND Internal Medicine
PROC: 30233N1 Transfusion of Nonautologous Red Blood Cells into Peripheral Vein, Percutaneous Approach (ICD-10-PCS; principal; 2016-08-13)
DX: I13.0 Hypertensive heart and chronic kidney disease with heart failure and stage 1 through stage 4 chronic kidney disease, or unspecified chronic kidney disease (principal); I50.23 Acute on chronic systolic (congestive) heart failure; J44.1 Chronic obstructive pulmonary disease with (acute) exacerbation; I69.354 Hemiplegia and hemiparesis following cerebral infarction affecting left non-dominant side; E87.2 Acidosis; N17.9 Acute kidney failure, unspecified; I47.1 Supraventricular tachycardia; I47.2 Ventricular tachycardia; R18.8 Other ascites; I95.9 Hypotension, unspecified; F17.210 Nicotine dependence, cigarettes, uncomplicated; N18.9 Chronic kidney disease, unspecified; Z95.1 Presence of aortocoronary bypass graft; I25.10 Atherosclerotic heart disease of native coronary artery without angina pectoris; Z95.0 Presence of cardiac pacemaker; I25.5 Ischemic cardiomyopathy; E87.6 Hypokalemia; I27.2 Other secondary pulmonary hypertension; N40.0 Benign prostatic hyperplasia without lower urinary tract symptoms; D50.9 Iron deficiency anemia, unspecified; E87.70 Fluid overload, unspecified; K74.60 Unspecified cirrhosis of liver; S00.81XA Abrasion of other part of head, initial encounter; S60.512A Abrasion of left hand, initial encounter; W18.30XA Fall on same level, unspecified, initial encounter; Y93.89 Activity, other specified; Y92.231 Patient bathroom in hospital as the place of occurrence of the external cause; Y99.8 Other external cause status; E87.5 Hyperkalemia
CPT/HCPCS: 36415; 36430; 36600; 70450-TC; 71010-TC; 71250-TC; 72192-TC; 73560-TC-LT; 74000-TC; 74150-TC; 76700-TC; 80048; 80053; 80076; 81003; 81015; 82150; 82272; 82550; 82728; 82803; 83540; 83550; 83605; 83735; 83880; 84100; 84443; 84484; 85025; 85027; 85610; 85730; 86850; 86900; 86901; 86922; 87040; 87086; 87186; 93005; 93010; 93306-TC; 93970-TC; 93971; 94640; 97116-GP; 97161-GP; 99285-25; G0008; P9038; P9058; Q2037; Q9967

== ENCOUNTER 2016-09-18 15:22 | Inpatient (IN) | payer MEDICARE, OTHER ==
[2016-09-18 15:55] VITALS: BMI 23.3
--- NOTE | 2016-09-18 17:26 | PDOC ---
History of Present Illness <Sana Estrada - Last Filed: 09/18/16 20:19> - History of Present Illness Initial Comments: 09/18/16 17:43 Patient is a 76 year old male with significant medical hx of COPD, CKD, CHF ( very low EF), pacemaker, hypotension, CVA with residual left sided weakness, HTN, HLD who is presenting to the ED with two days of lethargy. Patient is accompanied by family who states that the patient has been doing well, walking and talking, up until two days ago when he began having increased fatigue. The patient is complaining of headache, body aches, and LLQ pain. Family notes that the patient fell out of his bed five days ago but has not had any trauma since.He was recently discharged from prolonged admission on 09/06/16 for CHF and anemia. The patient was admitted to the ICU and received blood transfusions during his admission. Denies any fever, chills, nausea, vomiting, diarrhea, blood in stool, chest pain , shortness of breath, and cough. PCP: Yamileth Bella MD Manager Document Control: Félix Alston MD DNR/DNI <Yael Fitzpatrick - Last Filed: 09/18/16 20:52> - General Chief Complaint: Edema Stated Complaint: Weakness/FEVER Time Seen by Provider: 09/18/16 15:26 Past History - Past Medical History Anemia: No Asthma: No Cancer: No Cardiac Disorders: Yes (PACEMAKER lft) CVA: Yes (residual mild left sided weakness) COPD: Yes CHF: Yes Dementia: No Diabetes: No GI Disorders: Yes (gerd) Disorders: No HTN: Yes Hypercholesterolemia: Yes Liver Disease: No Suicide Attempt (Hx): No Seizures: No Thyroid Disease: No - Surgical History Abdominal Surgery: No Appendectomy: No Cardiac Surgery: Yes (BYPASS, PACEMAKER, CABG) Cholecystectomy: No Lung Surgery: No Neurologic Surgery: No - Immunization History Immunization Up to Date: Yes - Psycho/Social/Smoking Cessation Hx Anxiety: No Suicidal Ideation: No Smoking Status: Yes (STOPPED 3 MONTHS) Smoking History: Former smoker Have you smoked in the past 12 months: No Number of Cigarettes Smoked Daily: 2 If you are a former smoker, when did you quit?: APRIL 2012 Information on smoking cessation initiated: No 'Breaking Loose' booklet given: 02/09/14 Hx Alcohol Use: No Drug/Substance Use Hx: No Substance Use Type: None Hx Substance Use Treatment: No <SeanBrandena Mary Ann - Last Filed: 09/18/16 20:19> <NanetteYael - Last Filed: 09/18/16 20:52> - Past Medical History Allergies/Adverse Reactions: Allergies Allergy/AdvReac Type Severity Reaction Status Date / Time No Known Drug Allergies Allergy Verified 09/18/16 16:04 Home Medications: Ambulatory Orders Atorvastatin Ca [Lipitor] 10 mg PO HS 02/08/14 Ranitidine [Zantac -] 150 mg PO DAILY 02/08/14 Ascorbic Acid [Vitamin C -] 500 mg PO DAILY #30 tablet 09/06/16 Ferrous Sulfate [Feosol] 325 mg PO DAILY #30 tab 09/06/16 Polyethylene Glycol 3350 [Miralax 119 gm Btl -] 17 gm PO DAILY #1 bottle Torsemide [Demadex -] 100 mg PO DAILY #90 tablet 09/06/16 Allopurinol [Zyloprim -] 100 mg PO DAILY 09/18/16 Aspirin [Aspirin EC] 81 mg PO DAILY 09/18/16 Review of Systems - Review of Systems Comments:: 09/18/16 17:43 CONSTITUTIONAL: Present: lethargy Absent: fever, chills, diaphoresis, loss of appetite HEENT: Absent: rhinorrhea, nasal congestion, throat pain, throat swelling, difficulty swallowing, mouth swelling, ear pain, eye pain, visual changes CARDIOVASCULAR: Absent: chest pain, syncope, palpitations, irregular heart rate, lightheadedness , peripheral edema RESPIRATORY: Absent: cough, shortness of breath, dyspnea with exertion, orthopnea, wheezing, stridor, hemoptysis GASTROINTESTINAL: Present: LLQ pain Absent: abdominal distension, nausea, vomiting, diarrhea, constipation, melena, hematochezia GENITOURINARY: Absent: dysuria, frequency, urgency, hesitancy, hematuria, flank pain, genital pain MUSCULOSKELETAL: Present: myalgia Absent: arthralgia, joint swelling SKIN: Absent: rash, itching, pallor HEMATOLOGIC/IMMUNOLOGIC: Absent: easy bleeding, easy bruising, lymphadenopathy, frequent infections ENDOCRINE: Absent: unexplained weight gain, unexplained weight loss, heat intolerance, cold intolerance NEUROLOGIC: Present: headache Absent: focal weakness or paresthesia, dizziness, unsteady gait, seizure, mental status changes, bladder or bowel incontinence. PSYCHIATRIC: Absent: anxiety, depression, suicidal or homicidal ideation, hallucinations <NanetteYael - Last Filed: 09/18/16 20:52> *Physical Exam - Vital Signs Last Vital Signs Temp Pulse Resp BP Pulse Ox 97.7 F 81 18 90/53 100 09/18/16 15:25 09/18/16 15:25 09/18/16 15:25 09/18/16 15:25 09/18/16 15:25 <Sana Estrada - Last Filed: 09/18/16 20:19> - Vital Signs Last Vital Signs Temp Pulse Resp BP Pulse Ox 97.7 F 81 18 90/53 100 09/18/16 15:25 09/18/16 15:25 09/18/16 15:25 09/18/16 15:25 09/18/16 15:25 - Physical Exam Comments: 09/18/16 17:45 GENERAL: Well developed, well nourished. Awake and alert. No acute distress. HEENT: Normocephalic, atraumatic. PERRLA, EOMI. No conjunctival pallor. Sclera are non- icteric. Moist mucous membranes. Oropharynx is clear. NECK: Supple. Full ROM. No JVD. Carotid pulses 2+ and symmetric, without bruits. No thyromegaly. No lymphadenopathy. CARDIOVASCULAR: Regular rate and rhythm. Murmur. Aortic stenosis with bilateral bruits. No rubs or gallops. Distal pulses are 2+ and symmetric. PULMONARY: Scattered lower rhonchi. No evidence of respiratory distress. No wheezing or rales. ABDOMINAL: Soft. LLQ tenderness. Reproducible ventral hernia. Non-distended. No rebound or guarding. No organomegaly. Normoactive bowel sounds. MUSCULOSKELETAL: Normal range of motion at all joints. No bony deformities or tenderness. No CVA tenderness. EXTREMITIES: No cyanosis. No clubbing. No edema. No calf tenderness. SKIN: Eschar mid chest. Warm and dry. Normal capillary refill. No rashes. No jaundice. NEUROLOGICAL: Alert, awake, lethargic. Moving extremities. Normal speech. <NanetteYael - Last Filed: 09/18/16 20:52> Heart Score/ECG Review #1 09/18/16 18:00 Atrial-sensed ventricular-paced rhythm with occasional premature ventricular complexes Biventricular pacemaker detected Abnormal ECG <Yael Fitzpatrick - Last Filed: 09/18/16 20:52> ED Treatment Course - LABORATORY CBC & Chemistry Diagram: 09/18/16 16:50 09/18/16 16:50 <Sana Estrada - Last Filed: 09/18/16 20:19> - LABORATORY CBC & Chemistry Diagram: 09/18/16 16:50 09/18/16 16:50 - RADIOLOGY Radiograph Interpretation: 09/18/16 20:[address] Impression: No CT evidence of acute intracranial pathology. Chronic findings as discussed. Reported By: Raul Garcia MD <Yael Fitzpatrick - Last Filed: 09/18/16 20:52> *DC/Admit/Observation/Transfer - Discharge Dispostion Admit: Yes <Sana Estrada - Last Filed: 09/18/16 20:19> - Attestations Scribe Attestion: 09/18/16 18:00 Documentation prepared by Yael Fitzpatrick, acting as emergency medical technician/driver for Sana Estrada MD. <Yael Fitzpatrick - Last Filed: 09/18/16 20:52> Diagnosis at time of Disposition: Anemia Qualifiers: Anemia type: iron deficiency Iron deficiency anemia type: unspecified iron deficiency Qualified Code(s): D50.9 - Iron deficiency anemia, unspecified CKD (chronic kidney disease) Qualifiers: Chronic kidney disease stage: unspecified stage Qualified Code(s): N18.9 - Chronic kidney disease, unspecified Hypotension Qualifiers: Hypotension type: other hypotension type Qualified Code(s): I95.89 - Other hypotension CHF (congestive heart failure) Qualifiers: Congestive heart failure type: unspecified congestive heart failure type Congestive heart failure chronicity: chronic Qualified Code(s): I50.9 - Heart failure, unspecified - Referrals
[2016-09-18 18:26] LABS: BASOPHIL 1.1 % (0-2.0); EOSINOPHIL 1.3 % (0-4.5); MCH 21.9 pg (25.7-33.7); MEAN CELL VOLUME 78.1 fl (80-96); MEAN PLT VOLUME 8.4 fl (7.5-11.1); NEUTROPHILS 69.8 % (42.8-82.8); PLATELET COUNT 206 K/MM3 (134-434); RDW 28.3 % (11.9-15.9); WHITE BLOOD COUNT 8.2 K/mm3 (4.0-10.0)
[2016-09-18 18:42] LABS: INR 1.29 (0.82-1.09); PROTHROMBIN TIME (PATIENT) 14.3 SEC (9.98-11.88)
[2016-09-18 19:19] LABS: ALBUMIN 1.8 g/dl (3.4-5.0); CREATININE 1.2 mg/dL (0.7-1.3)
[2016-09-18 19:22] LABS: BILIRUBIN,TOTAL 1.1 mg/dL (0.2-1.0); TOT PROT 6.2 g/dl (6.4-8.2); TROPONIN I 0.05 ng/ml (0.00-0.05)
[2016-09-18 19:58] LABS: ANISOCYTOSIS 3+; HYPOCHROMIA 2+
[2016-09-18 19:59] LABS: MICROCYTOSIS 1+; OVALOCYTES 1+
[2016-09-18 20:08] LABS: URINE APPEARANCE CLEAR; URINE BILIRUBIN NEGATIVE (NEGATIVE); URINE BLOOD NEGATIVE (NEGATIVE); URINE COLOR LTYELLOW; URINE GLUCOSE (UA) NEGATIVE (NEGATIVE); URINE KETONE NEGATIVE (NEGATIVE); URINE LEUK ESTERASE NEGATIVE (NEGATIVE); URINE NITRITE NEGATIVE (NEGATIVE); URINE PROTEIN NEGATIVE (NEGATIVE); URINE UROBILINOGEN NEGATIVE E.U./dl (0.2-1.0)
[2016-09-18] MEDS ORDERED: ACETAMINOPHEN 325 MG TABLET (FP) PO PRN (22:11)
[2016-09-18] MEDS: ATORVASTATIN CA 10 MG TABLET (FP) PO SCH (23:08)
[2016-09-19 07:23] LABS: MCH 23.6 pg (25.7-33.7); MCHC 30.2 g/dl (32.0-35.9); MEAN CELL VOLUME 78.2 fl (80-96); MEAN PLT VOLUME 7.8 fl (7.5-11.1); PLATELET COUNT 183 K/MM3 (134-434); RDW 25.5 % (11.9-15.9)
[2016-09-19 07:49] LABS: ALBUMIN 1.7 g/dl (3.4-5.0); ANION GAP 6 (8-16); CALCIUM 8.8 mg/dL (8.5-10.1); CO2 40 mmol/L (21-32); GLUCOSE,RANDOM 137 mg/dL (74-106)
[2016-09-19 07:52] LABS: ALK PHOS 370 U/L (45-117); BILIRUBIN,TOTAL 1.5 mg/dL (0.2-1.0); COCKROFT - GAULT 50.76; CREATININE 1.1 mg/dL (0.7-1.3); SGOT/AST 61 U/L (15-37); SGPT/ALT 43 U/L (12-78)
--- NOTE | 2016-09-19 09:54 | HP ---
Admitting History and Physical - Primary Care Physician PCP: Purnima Driscoll - Admission Chief Complaint: weakness History of Present Illness: ER HISTORY - History of Present Illness Initial Comments: 09/18/16 17:43 Patient is a 76 year old male with significant medical hx of COPD, CKD, CHF ( very low EF), pacemaker, hypotension, CVA with residual left sided weakness, HTN, HLD who is presenting to the ED with two days of lethargy. Patient is accompanied by family who states that the patient has been doing well, walking and talking, up until two days ago when he began having increased fatigue. The patient is complaining of headache, body aches, and LLQ pain. Family notes that the patient fell out of his bed five days ago but has not had any trauma since.He was recently discharged from prolonged admission on 09/06/16 for CHF and anemia. The patient was admitted to the ICU and received blood transfusions during his admission. Denies any fever, chills, nausea, vomiting, diarrhea, blood in stool, chest pain , shortness of breath, and cough. PCP: Yamileth Bella MD Transport Rn: Félix Alston MD DNR/DNI Pt examined by in Tele He is receiving second unit or PRBC He looks comfortable now. NO distress No C/O SOB , chest pain received lasix x 1 dose Appears he has gained about 5 pounds since last admission No cough does continue to smoke History Source: Patient, Medical Record Limitations to Obtaining History: Poor Historian - Past Medical History Cardiovascular: Yes: CAD (status post CABG), CHF, HTN Pulmonary: Yes: COPD Renal/: Yes: Renal Inusuff, BPH - Past Surgical History Past Surgical History: Yes: AICD, CABG - Advance Directives Advance Directives: Yes: Health Care Proxy, DNR - Smoking History Smoking history: Former smoker Have you smoked in the past 12 months: No Aproximately how many cigarettes per day: 2 If you are a former smoker, when did you quit?: 6 months ago - Alcohol/Substance Use Hx Alcohol Use: No - Social History ADL: Family Assistance 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 History of Recent Travel: No Home Medications - Allergies Allergies/Adverse Reactions: Allergies Allergy/AdvReac Type Severity Reaction Status Date / Time No Known Drug Allergies Allergy Verified 09/18/16 16:04 - Home Medications Home Medications: Ambulatory Orders Atorvastatin Ca [Lipitor] 10 mg PO HS 02/08/14 Ranitidine [Zantac -] 150 mg PO DAILY 02/08/14 Ascorbic Acid [Vitamin C -] 500 mg PO DAILY #30 tablet 09/06/16 Ferrous Sulfate [Feosol] 325 mg PO DAILY #30 tab 09/06/16 Polyethylene Glycol 3350 [Miralax 119 gm Btl -] 17 gm PO DAILY #1 bottle Torsemide [Demadex -] 100 mg PO DAILY #90 tablet 09/06/16 Allopurinol [Zyloprim -] 100 mg PO DAILY 09/18/16 Aspirin [Aspirin EC] 81 mg PO DAILY 09/18/16 Acetaminophen [Tylenol] 650 mg PO Q4H PRN 09/19/16 Family Disease History - Family Disease History Family Disease History: Other: Father ( natural causes), Mother ( natural causes) Review of Systems - Review of Systems Constitutional: reports: Weakness. denies: Chills, Fever, Loss of Appetite Cardiovascular: denies: Chest Pain, Palpitations, Shortness of Breath Physical Examination Vital Signs: Vital Signs Temperature 98 F 09/19/16 08:26 Pulse Rate 83 09/19/16 08:26 Respiratory Rate 18 09/19/16 08:26 Blood Pressure 100/56 09/19/16 08:26 O2 Sat by Pulse Oximetry (%) 95 09/18/16 21:30 Constitutional: Yes: No Distress, Calm Cardiovascular: Yes: Regular Rate and Rhythm, Murmur Respiratory: Yes: Diminished, Rhonchi Gastrointestinal: Yes: Normal Bowel Sounds, Soft, Distention. No: Tenderness Edema: Yes Edema: LLE: 1+, RLE: 2+ Psychiatric: Yes: Alert Labs: CBC, BMP 09/19/16 06:20 09/19/16 06:20 Imaging - Results Chest X-ray: Image Reviewed (no infiltrate) Cat Scan: Report Reviewed (CT head negative) EKG: Image Reviewed (Paced) Problem List - Problems (1) Anemia Code(s): D64.9 - ANEMIA, UNSPECIFIED Qualifiers: Anemia type: iron deficiency Iron deficiency anemia type: unspecified iron deficiency Qualified Code(s): D50.9 - Iron deficiency anemia, unspecified (2) CHF (congestive heart failure) Code(s): I50.9 - HEART FAILURE, UNSPECIFIED Qualifiers: Congestive heart failure type: unspecified congestive heart failure type Congestive heart failure chronicity: chronic Qualified Code(s): I50.9 - Heart failure, unspecified (3) CKD (chronic kidney disease) Code(s): N18.9 - CHRONIC KIDNEY DISEASE, UNSPECIFIED Qualifiers: Chronic kidney disease stage: unspecified stage Qualified Code(s): N18.9 - Chronic kidney disease, unspecified (4) COPD (chronic obstructive pulmonary disease) Code(s): J44.9 - CHRONIC OBSTRUCTIVE PULMONARY DISEASE, UNSPECIFIED Assessment/Plan PLAN Was admitted previously for anemia-- seen by GI-- deemed too high risk to undergo any procedures and he did not have any overt bleeding Check stool guaic on Torsemide, received lasix x 1 dose today Monitor weights daily Monitor renal function Cardiology eval noted continue with rest of meds Tele monitoring Check lytes daily Has abdominal distension -- cardiac cirrhosis-- not greatly distended this time Lower extremities are edematous-- last admission, it was decreased SCD for DVT prophylaxis Advance directives--- Pt is DNR./DNI Time spent 30 min .
[2016-09-19] MEDS: FERROUS SO4 325 MG TABLET (FP) PO SCH (10:33)
[2016-09-19] MEDS: ALLOPURINOL 100 MG TABLET (FP) PO SCH (10:33)
[2016-09-19] MEDS: POLYETHYLENE GLYCOL 3350 119 GM BTL PO SCH (10:33)
[2016-09-19] MEDS: RANITIDINE HCL 150 MG TABLET (FP) PO SCH (10:33)
--- NOTE | 2016-09-19 10:33 | CON.CARD ---
Cardiology Consult (text) - Consultation Consultation Note: CC: lethargy hpi: 76 yo ex smoker, with h/o CAD s/p CABG, ischemic CM with EF 25% s/p BiVICD with secondary severe pulmonary hypertension, prior CVA, HL, copd, CKD, bph, chronic iron deficiency anemia who p/w lethargy and noted to have profound anemia. Recent admit for anemia and chf. Needed milrinone assisted diuresis then and GI w/u deferred due to chf. Went home and felt better initially but then developed lethargy. No cp, sob, palps, pnd, orthopnea, dizzy, loc. LE edema minimal. Sees me for cardio. Pmhx: per hpi PsHx: per hpi social hx: ex tob fam hx: no significant cardiac disease ros: per hpi; no nvd, cough, nasal congestion, fever, gib, hematuria, muscle pains, THOMAS, vision changes meds: Ambulatory Orders Atorvastatin Ca [Lipitor] 10 mg PO HS 02/08/14 Ranitidine [Zantac -] 150 mg PO DAILY 02/08/14 Ascorbic Acid [Vitamin C -] 500 mg PO DAILY #30 tablet 09/06/16 Ferrous Sulfate [Feosol] 325 mg PO DAILY #30 tab 09/06/16 Polyethylene Glycol 3350 [Miralax 119 gm Btl -] 17 gm PO DAILY #1 bottle Torsemide [Demadex -] 100 mg PO DAILY #90 tablet 09/06/16 Allopurinol [Zyloprim -] 100 mg PO DAILY 09/18/16 Aspirin [Aspirin EC] 81 mg PO DAILY 09/18/16 Acetaminophen [Tylenol] 650 mg PO Q4H PRN 09/19/16 pe: Vital Signs Period Temp Pulse Resp BP Sys/Vega Pulse Ox Last 24 Hr 97.7 F-99.3 F 79-89 16-20 78-100/38-56 95-100 Constitutional: Yes: Well Nourished, No Distress Eyes: No: Sclera Icterus HENT: No: Nasal Congestion Neck: No: Decreased ROM Respiratory: Yes: mild scattered rhonchi bl, nl eff No: Accessory Muscle Use, Wheezes Gastrointestinal: Yes: Normal Bowel Sounds. No: Distention, Hepatomegaly, Palpable Mass, Tenderness Cardiovascular: Yes: Regular Rate and Rhythm (soft heart sounds) JVD: Yes Carotid Bruit: No Heart Sounds: Yes: S1, S2. No: Gallop Murmur: 2/6 high pitched sys murmur at lsb and apex Extremities: No: Cold, Cyanosis Edema: trace le edema bl Peripheral Pulses: pos dp pt Integumentary: No: Jaundice diaphoresis Neurological: Yes: Alert, Oriented (x3) Psychiatric: No: Agitated - Other Data Labs, Other Data: Laboratory Last Values WBC 8.0 K/mm3 (4.0-10.0) 09/19/16 06:20 RBC 2.82 M/mm3 (4.00-5.60) L 09/19/16 06:20 Hgb 6.7 GM/dL (11.7-16.9) L* D 09/19/16 06:20 Hct 22.1 % (35.4-49) L 09/19/16 06:20 MCV 78.2 fl (80-96) L 09/19/16 06:20 MCHC 30.2 g/dl (32.0-35.9) L 09/19/16 06:20 RDW 25.5 % (11.9-15.9) H 09/19/16 06:20 Plt Count 183 K/MM3 (134-434) 09/19/16 06:20 MPV 7.8 fl (7.5-11.1) 09/19/16 06:20 Neutrophils % 69.8 % (42.8-82.8) 09/18/16 16:50 Lymphocytes % 16.7 % (8-40) D 09/18/16 16:50 Monocytes % 11.1 % (3.8-10.2) H 09/18/16 16:50 Eosinophils % 1.3 % (0-4.5) 09/18/16 16:50 Basophils % 1.1 % (0-2.0) 09/18/16 16:50 Hypochromic-Microcytic 2+ 09/18/16 16:50 Anisocytosis 3+ 09/18/16 16:50 Microcytosis 1+ 09/18/16 16:50 Ovalocytes 1+ 09/18/16 16:50 INR 1.29 (0.82-1.09) H 09/18/16 16:50 Sodium 145 mmol/L (136-145) 09/19/16 06:20 Potassium 3.5 mmol/L (3.5-5.1) 09/19/16 06:20 Chloride 99 mmol/L (98-107) 09/19/16 06:20 Carbon Dioxide 40 mmol/L (21-32) H 09/19/16 06:20 Anion Gap 6 (8-16) L 09/19/16 06:20 BUN 73 mg/dL (7-18) H 09/19/16 06:20 Creatinine 1.1 mg/dL (0.7-1.3) 09/19/16 06:20 Creat Clearance w eGFR > 60 (>60) 09/19/16 06:20 Random Glucose 137 mg/dL (74-106) H D 09/19/16 06:20 Calcium 8.8 mg/dL (8.5-10.1) 09/19/16 06:20 Magnesium 2.6 mg/dL (1.8-2.4) H 09/18/16 16:50 Total Bilirubin 1.5 mg/dL (0.2-1.0) H D 09/19/16 06:20 AST 61 U/L (15-37) H 09/19/16 06:20 ALT 43 U/L (12-78) 09/19/16 06:20 Alkaline Phosphatase 370 U/L (45-117) H 09/19/16 06:20 Creatine Kinase 31 IU/L (39-308) L 09/18/16 16:50 Troponin I 0.05 ng/ml (0.00-0.05) 09/18/16 16:50 B-Natriuretic Peptide 8220.56 pg/ml (5-450) H 09/18/16 16:50 Total Protein 6.0 g/dl (6.4-8.2) L 09/19/16 06:20 Albumin 1.7 g/dl (3.4-5.0) L 09/19/16 06:20 Urine Color Ltyellow 09/18/16 19:30 Urine Appearance Clear 09/18/16 19:30 Urine pH 7.0 (5.0-8.0) 09/18/16 19:30 Ur Specific [place] <= 1.005 (1.005-1.025) 09/18/16 19:30 Urine Protein Negative (NEGATIVE) 09/18/16 19:30 Urine Glucose (UA) Negative (NEGATIVE) 09/18/16 19:30 Urine Ketones Negative (NEGATIVE) 09/18/16 19:30 Urine Blood Negative (NEGATIVE) 09/18/16 19:30 Urine Nitrite Negative (NEGATIVE) 09/18/16 19:30 Urine Bilirubin Negative (NEGATIVE) 09/18/16 19:30 Urine Urobilinogen Negative E.U./dl (0.2-1.0) 09/18/16 19:30 Ur Leukocyte Esterase Negative (NEGATIVE) 09/18/16 19:30 Stool Occult Blood Negative (NEGATIVE) 09/18/16 20:30 Blood Type A POSITIVE 09/18/16 16:50 Antibody Screen Negative 09/18/16 16:50 Crossmatch See Detail 09/18/16 16:50 tele: sr, v-paced, occ pvcs, brief nsvt cath 08/02 all grafts patent (self to lad, svg to lcx, svg to rpda) Echo 07/2016 (this admit): mod lve, sev reduced LV fn (global). mild rve with mild hypo (severe TR, intrinsic RV fn likely more depressed), 1+ connie. 1+ mr, severe tr, mod phtn, pl effusion Echo 07/2015: sev lve, sev reduced lvef (global). grade 2 diastolic dysfunction. nl RV. mild connie. dilated ivc. mod mr, mod-sev tr, sev phtn, mild pr. Echo 08/03: sev LVE with severe decr EF; mild RV dil with moderate hypo; mod MR/ TR; RVSP >60 ecg 09/18/16: sr, vpaced, pvc cxr: improved chf a/p: 76 yo ex smoker, with h/o CAD s/p CABG, ischemic CM with EF 25% s/p BiVICD with secondary severe pulmonary hypertension, prior CVA, HL, copd, CKD, bph, chronic iron deficiency anemia who p/w lethargy and noted to have profound anemia. Pre-operative clearance/anemia. -recent admit for anemia, responded to prbcs and hgb stable. GI w/u deferred then 2/2 chf. Now presents with symptomatic anemia again, getting prbcs now. His chf is currently at baseline and has been maintaining his vol status on oral diuretics. Currently he has [id number] risk (but not prohibitive ) of periop cardiac events for a possible foc/egd. Given his recurrent severe anemia would favor proceeding with GI workup. isch CMP (chronic systolic CHF): -recent admit for chf needing milrinone/lasix -discharged on torsemide 100 qd and has been maintaining his vol status--bnp lower, cxr improved, wt improved (baseline approx 130lbs) -cont with po torsemide 100 qd -not on bb, aceI at home due to prior side effects of hypotension, dizziness-- deferring now given low bp's still -office BiV followup/optimization CAD s/p h/o CABG 2006 - holding ASA, plavix due to anemia. If anti-platelets can be resumed, would resume ASA alone. - no angina or signs acs h/o CVA: -was on ASA, plavix --> on hold as above. V Tach: - nsvt seen on prior ICD checks and on tele here as well. - electrolyte repletion prn - con't telemetry monitoring. - will cont deferring BB while still with low bp PAT/PSVT - brief episodes on tele here in past
[2016-09-19] MEDS ORDERED: ALBUTEROL SO4 2.5/IPRATROPIUM 0.5 INH SOL 3 ML VIAL.NEB. NEB PRN (10:47)
[2016-09-19] MEDS: TORSEMIDE 100 MG TABLET PO SCH (12:16)
--- NOTE | 2016-09-19 13:40 | EKG ---
Test Reason : Blood Pressure : / mmHG Vent. Rate : 079 BPM Atrial Rate : 079 BPM P-R Int : 176 ms QRS Dur : 156 ms QT Int : 458 ms P-R-T Axes : 064 250 043 degrees QTc Int : 525 ms Atrial-sensed ventricular-paced rhythm WITH OCCASIONAL PREMATURE VENTRICULAR COMPLEXES Biventricular pacemaker detected ABNORMAL ECG WHEN COMPARED WITH ECG OF 13-AUG-2016 15:10, PREMATURE VENTRICULAR COMPLEXES ARE NOW PRESENT Confirmed by MILLA CERRATO, VANNESA ([id number]) on 09/19/2016 1:40:25 PM Referred By: Confirmed By:VANNESA LOYOLA MD
[2016-09-19 16:46] LABS: MCH 24.8 pg (25.7-33.7); MCHC 31.1 g/dl (32.0-35.9); MEAN CELL VOLUME 79.6 fl (80-96); PLATELET COUNT 195 K/MM3 (134-434); RDW 23.1 % (11.9-15.9); WHITE BLOOD COUNT 8.8 K/mm3 (4.0-10.0)
[2016-09-19] MEDS: ATORVASTATIN CA 10 MG TABLET (FP) PO SCH (21:13)
[2016-09-20 07:09] LABS: BASOPHIL 0.6 % (0-2.0); EOSINOPHIL 1.4 % (0-4.5); MCH 24.7 pg (25.7-33.7); MCHC 30.6 g/dl (32.0-35.9); MEAN PLT VOLUME 8.2 fl (7.5-11.1); NEUTROPHILS 63.1 % (42.8-82.8); PLATELET COUNT 179 K/MM3 (134-434); WHITE BLOOD COUNT 9.2 K/mm3 (4.0-10.0)
[2016-09-20 07:39] LABS: ALBUMIN 1.9 g/dl (3.4-5.0); ANION GAP 8 (8-16); BILIRUBIN,TOTAL 1.7 mg/dL (0.2-1.0); CALCIUM 8.1 mg/dL (8.5-10.1); CO2 39 mmol/L (21-32); COCKROFT - GAULT 56.24; GLUCOSE,RANDOM 85 mg/dL (74-106); MAGNESIUM 2.3 mg/dL (1.8-2.4); SGOT/AST 64 U/L (15-37); SGPT/ALT 44 U/L (12-78); TOT PROT 6.4 g/dl (6.4-8.2)
[2016-09-20 07:40] LABS: ALK PHOS 376 U/L (45-117)
[2016-09-20] MEDS ORDERED: PT OWN MED DRAWER 7, Y5N ONE (09:56)
[2016-09-20] MEDS: ALLOPURINOL 100 MG TABLET (FP) PO SCH (09:58)
[2016-09-20] MEDS: FERROUS SO4 325 MG TABLET (FP) PO SCH (09:58)
[2016-09-20] MEDS: RANITIDINE HCL 150 MG TABLET (FP) PO SCH (09:58)
[2016-09-20] MEDS: POLYETHYLENE GLYCOL 3350 119 GM BTL PO SCH (09:59)
[2016-09-20] MEDS: TORSEMIDE 100 MG TABLET PO SCH (09:59)
[2016-09-20 10:07] VITALS: BP 93/62; PULSE 87; TEMP 98.3
--- NOTE | 2016-09-20 10:35 | PN ---
Progress Note, Physician Chief Complaint: see dc summary - Current Medication List Current Medications: Active Medications Acetaminophen (Tylenol -) 650 mg PO Q4H PRN PRN Reason: FEVER OR PAIN Last Admin: 09/19/16 21:13 Dose: 650 mg Albuterol/Ipratropium (Duoneb -) 1 amp NEB Q6H PRN PRN Reason: SHORTNESS OF BREATH Allopurinol (Zyloprim -) 100 mg PO DAILY [facility] Last Admin: 09/20/16 09:58 Dose: 100 mg Atorvastatin Calcium (Lipitor -) 10 mg PO HS [facility] Last Admin: 09/19/16 21:13 Dose: 10 mg Ferrous Sulfate (Feosol -) 325 mg PO DAILY [facility] Last Admin: 09/20/16 09:58 Dose: 325 mg Polyethylene Glycol (Miralax (For Daily Use) -) 17 gm PO DAILY [facility] Last Admin: 09/20/16 09:59 Dose: 17 gm Ranitidine HCl (Zantac -) 150 mg PO DAILY [facility] Last Admin: 09/20/16 09:58 Dose: 150 mg Torsemide (Demadex -) 100 mg PO DAILY [facility] Last Admin: 09/20/16 09:59 Dose: 100 mg - Objective Vital Signs: Vital Signs Temperature 98.3 F 09/20/16 10:06 Pulse Rate 87 09/20/16 10:06 Respiratory Rate 18 09/20/16 10:06 Blood Pressure 93/62 09/20/16 10:06 O2 Sat by Pulse Oximetry (%) 98 09/19/16 21:00 Labs: CBC, BMP 09/20/16 05:35 09/20/16 05:35 INR, PTT INR 1.29 (0.82-1.09) H 09/18/16 16:50 Problem List - Problems (1) Anemia Code(s): D64.9 - ANEMIA, UNSPECIFIED Qualifiers: Anemia type: iron deficiency Iron deficiency anemia type: unspecified iron deficiency Qualified Code(s): D50.9 - Iron deficiency anemia, unspecified (2) CHF (congestive heart failure) Code(s): I50.9 - HEART FAILURE, UNSPECIFIED Qualifiers: Congestive heart failure type: unspecified congestive heart failure type Congestive heart failure chronicity: chronic Qualified Code(s): I50.9 - Heart failure, unspecified (3) CKD (chronic kidney disease) Code(s): N18.9 - CHRONIC KIDNEY DISEASE, UNSPECIFIED Qualifiers: Chronic kidney disease stage: unspecified stage Qualified Code(s): N18.9 - Chronic kidney disease, unspecified (4) COPD (chronic obstructive pulmonary disease) Code(s): J44.9 - CHRONIC OBSTRUCTIVE PULMONARY DISEASE, UNSPECIFIED
--- NOTE | 2016-09-20 10:58 | DS ---
Physical Examination Vital Signs: Vital Signs Temperature 98.3 F 09/20/16 10:06 Pulse Rate 87 09/20/16 10:06 Respiratory Rate 18 09/20/16 10:06 Blood Pressure 93/62 09/20/16 10:06 O2 Sat by Pulse Oximetry (%) 98 09/19/16 21:00 Constitutional: Yes: No Distress, Calm Cardiovascular: Yes: Regular Rate and Rhythm, Murmur Respiratory: Yes: Diminished. No: Rales, Rhonchi Gastrointestinal: Yes: Normal Bowel Sounds, Soft. No: Distention, Tenderness Edema: No Psychiatric: Yes: Alert Labs: CBC, BMP 09/20/16 05:35 09/20/16 05:35 Discharge Summary Reason For Visit: CONGESTIVE HEART FAILURE, ANEMIA Current Active Problems Anemia (Acute) CHF (congestive heart failure) (Acute) CKD (chronic kidney disease) (Acute) Cellulitis of knee, left (Acute) Hypotension (Acute) Hospital Course: Pt admitted for CHF decompensation and Anemia No active GI bleeding was talking Plavix at home-- was told not to take it. Received 2 units of PRBC Hb at baseline feels better decreased edema no GI interventions as pt is high risk for procedures PT eval done seen by Cardiology here Stable for dc home Condition: Improved - Instructions Diet, Activity, Other Instructions: no ASA or plavix Referrals: Contreras Leyva MD [Staff Physician] - Yamileth Bella MD [Primary Care Provider] - Disposition: HOME - Home Medications Comprehensive Discharge Medication List: Ambulatory Orders Atorvastatin Ca [Lipitor] 10 mg PO HS 02/08/14 Ranitidine [Zantac -] 150 mg PO DAILY 02/08/14 Ascorbic Acid [Vitamin C -] 500 mg PO DAILY #30 tablet 09/06/16 Ferrous Sulfate [Feosol] 325 mg PO DAILY #30 tab 09/06/16 Polyethylene Glycol 3350 [Miralax 119 gm Btl -] 17 gm PO DAILY #1 bottle Torsemide [Demadex -] 100 mg PO DAILY #90 tablet 09/06/16 Allopurinol [Zyloprim -] 100 mg PO DAILY 09/18/16 Aspirin [Aspirin EC] 81 mg PO DAILY 09/18/16 Acetaminophen [Tylenol] 650 mg PO Q4H PRN 09/19/16
--- NOTE | 2016-09-20 11:19 | PN ---
Progress Note (short form) - Note Progress Note: s: no cp sob palps dizzy o: Vital Signs Period Temp Pulse Resp BP Sys/Vega Pulse Ox Last 24 Hr 97.8 F-98.8 F 80-88 18-20 81-98/47-62 98 Constitutional: Yes: Well Nourished, No Distress Eyes: No: Sclera Icterus HENT: No: Nasal Congestion Neck: No: Decreased ROM Respiratory: Yes: mild scattered rhonchi bl, nl eff No: Accessory Muscle Use, Wheezes Gastrointestinal: Yes: Normal Bowel Sounds. No: Distention, Hepatomegaly, Palpable Mass, Tenderness Cardiovascular: Yes: Regular Rate and Rhythm (soft heart sounds) JVD: Yes Carotid Bruit: No Heart Sounds: Yes: S1, S2. No: Gallop Murmur: 2/6 high pitched sys murmur at lsb and apex Extremities: No: Cold, Cyanosis Edema: trace le edema bl Peripheral Pulses: pos dp pt Integumentary: No: Jaundice diaphoresis Neurological: Yes: Alert, Oriented (x3) Psychiatric: No: Agitated Current Medications Generic Name Dose Route Start Last Admin Trade Name Freq PRN Reason Stop Dose Admin Acetaminophen 650 mg 09/18/16 22:11 09/19/16 21:13 Tylenol - PO 650 mg Q4H PRN Administration FEVER OR PAIN Albuterol/Ipratropium 1 amp 09/19/16 10:47 Duoneb - NEB Q6H PRN SHORTNESS OF BREATH Allopurinol 100 mg 09/19/16 10:00 09/20/16 09:58 Zyloprim - PO 100 mg DAILY [place] Administration Atorvastatin Calcium 10 mg 09/18/16 22:15 09/19/16 21:13 Lipitor - PO 10 mg HS [place] Administration Ferrous Sulfate 325 mg 09/19/16 10:00 09/20/16 09:58 Feosol - PO 325 mg DAILY [place] Administration Polyethylene Glycol 17 gm 09/19/16 10:00 09/20/16 09:59 Miralax (For Daily Use) - PO 17 gm DAILY [place] Administration Ranitidine HCl 150 mg 09/19/16 10:00 09/20/16 09:58 Zantac - PO 150 mg DAILY [place] Administration Torsemide 100 mg 09/19/16 10:00 09/20/16 09:59 Demadex - PO 100 mg DAILY [place] Administration CBC, BMP 09/20/16 05:35 09/20/16 05:35 tele: sr, v-paced, occ pvcs, brief nsvt cath 08/02 all grafts patent (self to lad, svg to lcx, svg to rpda) Echo 07/2016 (this admit): mod lve, sev reduced LV fn (global). mild rve with mild hypo (severe TR, intrinsic RV fn likely more depressed), 1+ connie. 1+ mr, severe tr, mod phtn, pl effusion Echo 07/2015: sev lve, sev reduced lvef (global). grade 2 diastolic dysfunction. nl RV. mild connie. dilated ivc. mod mr, mod-sev tr, sev phtn, mild pr. Echo 08/03: sev LVE with severe decr EF; mild RV dil with moderate hypo; mod MR/ TR; RVSP >60 ecg 09/18/16: sr, vpaced, pvc cxr: improved chf a/p: 76 yo ex smoker, with h/o CAD s/p CABG, ischemic CM with EF 25% s/p BiVICD with secondary severe pulmonary hypertension, prior CVA, HL, copd, CKD, bph, chronic iron deficiency anemia who p/w lethargy and noted to have profound anemia. Pre-operative clearance/anemia. -recent admit for anemia, responded to prbcs and hgb stable. GI w/u deferred then 2/2 chf. Now presents with symptomatic anemia again, getting prbcs now. Apparently was still taking plavix as outpt so possibly this led to further bleeding. DC asa and plavix now. His chf is currently at baseline and has been maintaining his vol status on oral diuretics. Currently he has [id number]-[id number] risk (but not prohibitive) of periop cardiac events for a possible foc/egd. isch CMP (chronic systolic CHF): -recent admit for chf needing milrinone/lasix -discharged on torsemide 100 qd and has been maintaining his vol status--bnp lower, cxr improved, wt improved (baseline approx 130lbs) -cont with po torsemide 100 qd -not on bb, aceI at home due to prior side effects of hypotension, dizziness-- deferring now given low bp's still -office BiV followup/optimization CAD s/p h/o CABG 2006 - holding ASA, plavix due to anemia. - no angina or signs acs h/o CVA: -was on ASA, plavix --> on hold as above. V Tach: - nsvt seen on prior ICD checks and on tele here as well. - electrolyte repletion prn - will cont deferring BB while still with low bp PAT/PSVT - brief episodes on tele here in past
== END 2016-09-20 12:40 | disposition home or self-care (01) | DRG 812 ==
LOC: JER 15:22 → JERBED 20:21 → J4S 21:24
PROVIDERS: ADMIT Internal Medicine; ATTEND Internal Medicine
PROC: 30233N1 Transfusion of Nonautologous Red Blood Cells into Peripheral Vein, Percutaneous Approach (ICD-10-PCS; principal; 2016-09-18)
DX: D50.9 Iron deficiency anemia, unspecified (principal); I13.0 Hypertensive heart and chronic kidney disease with heart failure and stage 1 through stage 4 chronic kidney disease, or unspecified chronic kidney disease; I50.22 Chronic systolic (congestive) heart failure; I69.354 Hemiplegia and hemiparesis following cerebral infarction affecting left non-dominant side; I47.2 Ventricular tachycardia; J44.9 Chronic obstructive pulmonary disease, unspecified; N18.9 Chronic kidney disease, unspecified; N40.0 Benign prostatic hyperplasia without lower urinary tract symptoms; I25.5 Ischemic cardiomyopathy; E78.5 Hyperlipidemia, unspecified; I27.2 Other secondary pulmonary hypertension; I25.10 Atherosclerotic heart disease of native coronary artery without angina pectoris; Z95.1 Presence of aortocoronary bypass graft; Z95.0 Presence of cardiac pacemaker; Z87.891 Personal history of nicotine dependence; Z66 Do not resuscitate
CPT/HCPCS: 36415; 36430; 70450-TC; 71010-TC; 80053; 81003; 82272; 82550; 83735; 83880; 84484; 85025; 85027; 85610; 86850; 86900; 86901; 86922; 93005; 93010; 97116-GP; 97163; 99284-25; P9038; P9058

== ENCOUNTER 2016-11-08 10:15 | Inpatient (IN) | payer MEDICARE, OTHER ==
--- NOTE | 2016-11-08 10:30 | PDOC ---
Attending Attestation - Resident Resident Name: Mireille Medellin - HPI HPI: 11/13/16 00:12 Pt presents to the ED complaining of worsening of his chronic ascites and lower extemity edema. - Physicial Exam PE: 11/13/16 00:12 Agree with above exam. Patient has distended abdomen and pitting edema in his lower extremities. - Medical Decision Making 11/13/16 00:16 Pt presents to the ED complaining of worsening edema and ascites. Will admit for gentle diuresis.
--- NOTE | 2016-11-08 10:36 | PDOC ---
History of Present Illness - General Stated Complaint: ABD PAIN Time Seen by Provider: 11/08/16 10:21 - History of Present Illness Initial Comments: 11/08/16 10:36 Mr. Daksha Kerr is a 76 year old male with a significant past medical history of CAD s/p CABG with EF 25%, s/p BiVICD w/ secondary severe pulmonary HTN, prior CVA, HL, CKD, BPH, and Iron deficiency anemia w/ lethargy. He presents to the emergency department per his Reinforcing Rod Layer (Félix Taylor) for management of his ascites. The patient denies chest pain, shortness of breath, headache and dizziness. Denies fever, chills, nausea, vomit, diarrhea and constipation. Denies dysuria, frequency, urgency and hematuria. Allergies: NKDA Past surgical history: CABG, BiVICD, pacemaker Social history: Extensive smoking history, denies current smoking/drinking PMD - Dr. Purnima Driscoll. 11/08/16 14:36 Past History - Past Medical History Allergies/Adverse Reactions: Allergies Allergy/AdvReac Type Severity Reaction Status Date / Time No Known Drug Allergies Allergy Verified 09/18/16 16:04 Home Medications: Ambulatory Orders Atorvastatin Ca [Lipitor] 10 mg PO HS 02/08/14 Ranitidine [Zantac -] 150 mg PO DAILY 02/08/14 Ascorbic Acid [Vitamin C -] 500 mg PO DAILY #30 tablet 09/06/16 Ferrous Sulfate [Feosol] 325 mg PO DAILY #30 tab 09/06/16 Polyethylene Glycol 3350 [Miralax 119 gm Btl -] 17 gm PO DAILY #1 bottle Torsemide [Demadex -] 100 mg PO DAILY #90 tablet 09/06/16 Acetaminophen [Tylenol] 650 mg PO Q4H PRN 09/19/16 Allopurinol [Zyloprim -] 100 mg PO DAILY #90 tab 09/20/16 Metolazone 5 mg PO DAILY 11/08/16 Anemia: Yes Asthma: No Cancer: No Cardiac Disorders: Yes (PACEMAKER lft) CVA: Yes (residual mild left sided weakness) COPD: Yes CHF: Yes Dementia: No Diabetes: No GI Disorders: Yes (gerd) Disorders: No HTN: Yes Hypercholesterolemia: Yes Liver Disease: No Suicide Attempt (Hx): No Seizures: No Thyroid Disease: No - Surgical History Abdominal Surgery: No Appendectomy: No Cardiac Surgery: Yes (BYPASS, PACEMAKER, CABG) Cholecystectomy: No Lung Surgery: No Neurologic Surgery: No - Immunization History Immunization Up to Date: Yes - Psycho/Social/Smoking Cessation Hx Anxiety: No Suicidal Ideation: No Smoking Status: Yes (STOPPED 3 MONTHS) Smoking History: Former smoker Have you smoked in the past 12 months: No Number of Cigarettes Smoked Daily: 2 If you are a former smoker, when did you quit?: 6 months ago 'Breaking Loose' booklet given: 02/09/14 Hx Alcohol Use: No Drug/Substance Use Hx: No Substance Use Type: None Hx Substance Use Treatment: No Review of Systems - Review of Systems Comments:: 11/08/16 10:36 GENERAL/CONSTITUTIONAL: +Endorses weakness. No fever or chills. HEAD, EYES, EARS, NOSE AND THROAT: No change in vision. No ear pain or discharge. No sore throat. CARDIOVASCULAR: No chest pain or shortness of breath RESPIRATORY: No cough, wheezing, or hemoptysis. GASTROINTESTINAL: Reports 1 month history of abdominal swelling with significant increase in the last month. No nausea, vomiting, diarrhea or constipation. GENITOURINARY: No dysuria, frequency, or change in urination. MUSCULOSKELETAL: No joint or muscle swelling or pain. No neck or back pain. SKIN: No rash NEUROLOGIC: No headache, vertigo, loss of consciousness, or change in strength/ sensation. ENDOCRINE: No increased thirst. No abnormal weight change HEMATOLOGIC/LYMPHATIC: No anemia, easy bleeding, or history of blood clots. ALLERGIC/IMMUNOLOGIC: No hives or skin allergy. 11/08/16 11:59 11/08/16 13:32 *Physical Exam - Physical Exam Comments: 11/08/16 10:36 GENERAL: Awake, alert, and fully oriented, in no acute distress HEAD: No signs of trauma, normocephalic, atraumatic EYES: PERRLA, EOMI, sclera anicteric, conjunctiva clear ENT: Auricles normal inspection, hearing grossly normal, nares patent, oropharynx clear without exudates. Moist mucosa NECK: Normal ROM, supple, no lymphadenopathy, JVD, or masses LUNGS: No distress, speaks full sentences, clear to auscultation bilaterally HEART: Regular rate and rhythm, normal S1 and S2, no murmurs, rubs or gallops, peripheral pulses normal and equal bilaterally. ABDOMEN: +Signficant ascites noted. Soft, nontender, normoactive bowel sounds. No guarding, no rebound. No masses EXTREMITIES: Normal inspection, Normal range of motion, no edema. No clubbing or cyanosis. NEUROLOGICAL: Cranial nerves II through XII grossly intact. Normal speech, normal gait, no focal sensorimotor deficits SKIN: Warm, Dry, normal turgor, no rashes or lesions noted. 11/08/16 12:00 11/08/16 14:57 ED Treatment Course - LABORATORY CBC & Chemistry Diagram: 11/08/16 12:10 11/08/16 12:10 Medical Decision Making - Medical Decision Making 11/08/16 13:32 Pt. Presents per direction of airplane navigator (Dr. Félix Taylor) for management of swelling abdomen. After consulting [facility] basic labs under his direction. Dr. Taylor will see patient in ED, suspect will admit for further analysis. Tele 11/08/16 14:25 11/08/16 14:53 11/08/16 14:57 *DC/Admit/Observation/Transfer Diagnosis at time of Disposition: CHF (congestive heart failure) Qualifiers: Congestive heart failure type: unspecified congestive heart failure type Congestive heart failure chronicity: chronic Qualified Code(s): I50.9 - Heart failure, unspecified - Discharge Dispostion Admit: Yes - Referrals Referrals: Purnima Driscoll MD [Primary Care Provider] - - Attestations Physician Attestion: 11/08/16 13:34 I, Dr. Cristobal Cruz, attest that this document has been prepared under my direction and personally reviewed by me in its entirety. I further attest, that it accurately reflects all work, treatment, procedures and medical decision -making performed by me.
[2016-11-08 11:20] VITALS: BMI 26.5
[2016-11-08 12:30] LABS: BASOPHIL 0.7 % (0-2.0); EOSINOPHIL 0.9 % (0-4.5); MCH 22.7 pg (25.7-33.7); MCHC 29.4 g/dl (32.0-35.9); MEAN CELL VOLUME 77.3 fl (80-96); MEAN PLT VOLUME 8.6 fl (7.5-11.1); NEUTROPHILS 65.2 % (42.8-82.8); PLATELET COUNT 197 K/MM3 (134-434); RDW 21.6 % (11.9-15.9); WHITE BLOOD COUNT 6.7 K/mm3 (4.0-10.0)
[2016-11-08 12:58] LABS: TROPONIN I 0.14 ng/ml (0.00-0.05)
[2016-11-08 13:07] LABS: ALBUMIN 2.1 g/dl (3.4-5.0); ALK PHOS 188 U/L (45-117); ANION GAP 7 (8-16); BILIRUBIN,TOTAL 0.7 mg/dL (0.2-1.0); CALCIUM 8.5 mg/dL (8.5-10.1); CO2 44 mmol/L (21-32); CREATININE 1.5 mg/dL (0.7-1.3); GLUCOSE,RANDOM 137 mg/dL (74-106); SGOT/AST 32 U/L (15-37); SGPT/ALT 15 U/L (12-78); TOT PROT 6.8 g/dl (6.4-8.2)
[2016-11-08] MEDS ORDERED: POTASSIUM CHLORIDE TABS 20 MEQ TABLET.ER (FP) PO ONE (14:00)
[2016-11-08] MEDS ORDERED: FUROSEMIDE 40 MG/4 ML INJECTABLE VIAL ONE (14:08)
[2016-11-08] MEDS ORDERED: POTASSIUM CHLORIDE ORAL LIQUID 20 MEQ/15 ML ONE (14:08)
[2016-11-08] MEDS: FUROSEMIDE 40 MG/4 ML INJECTABLE VIAL IVPUSH SCH (14:21)
[2016-11-08 14:36] LABS: HYPOCHROMIA 2+; MICROCYTOSIS 1+
[2016-11-08 14:37] LABS: ANISOCYTOSIS 2+
--- NOTE | 2016-11-08 16:05 | CON.CARD ---
Cardiology Consult (text) - Consultation Consultation Note: CC: chf hpi: 76 yo ex smoker, with h/o CAD s/p CABG, ischemic CM with EF 25% s/p BiVICD with secondary severe pulmonary hypertension, prior CVA, HL, copd, CKD, bph, chronic iron deficiency anemia who is here for chf. Was admitted here 2016 for chf requiring milrinone assisted diuresis. He was maintained as outpt on torsemide. Over past few weeks he has had increased le edema and abd girth despite escalating doses of torsemide/metolazone. Outpt labs showed signs of cardiorenal syndrome so sent to ER for admission for iv diuresis. No cp, sob, palps, pnd, orthopnea, dizzy, loc. Sees me for cardio. Pmhx: per hpi PsHx: per hpi social hx: ex tob fam hx: no significant cardiac disease ros: per hpi; no nvd, cough, nasal congestion, fever, gib, hematuria, muscle pains, THOMAS, vision changes meds: Ambulatory Orders Home Medications Medication Instructions Recorded Atorvastatin Ca [Lipitor] 10 mg PO HS 02/08/14 Ranitidine [Zantac -] 150 mg PO DAILY 02/08/14 Ascorbic Acid [Vitamin C -] 500 mg PO DAILY #30 tablet 09/06/16 Ferrous Sulfate [Feosol] 325 mg PO DAILY #30 tab 09/06/16 Polyethylene Glycol 3350 [Miralax 17 gm PO DAILY #1 bottle 09/06/16 119 gm Btl -] Torsemide [Demadex -] 100 mg PO DAILY #90 tablet 09/06/16 Acetaminophen [Tylenol] 650 mg PO Q4H PRN 09/19/16 Allopurinol [Zyloprim -] 100 mg PO DAILY #90 tab 09/20/16 Metolazone 5 mg PO DAILY 11/08/16 pe: Vital Signs Period Temp Pulse Resp BP Sys/Vega Pulse Ox Last 24 Hr 97.1 F 72-94 18-18 106-121/58-60 100-100 Constitutional: Yes: Well Nourished, No Distress Eyes: No: Sclera Icterus HENT: No: Nasal Congestion Neck: No: Decreased ROM Respiratory: Yes: mild scattered rhonchi bl, nl eff No: Accessory Muscle Use, Wheezes Gastrointestinal: Yes: Normal Bowel Sounds. Nt, +distended Cardiovascular: Yes: Regular Rate and Rhythm (soft heart sounds) JVD: Yes Carotid Bruit: No Heart Sounds: Yes: S1, S2. No: Gallop Murmur: 2/6 high pitched sys murmur at lsb and apex Extremities: No: Cold, Cyanosis Edema: 1-2 + le edema bl Peripheral Pulses: pos dp pt Integumentary: No: Jaundice diaphoresis Neurological: Yes: Alert, Oriented (x3) Psychiatric: No: Agitated - Other Data Labs, Other Data: Laboratory Last Values WBC 6.7 K/mm3 (4.0-10.0) 11/08/16 12:10 RBC 4.23 M/mm3 (4.00-5.60) D 11/08/16 12:10 Hgb 9.6 GM/dL (11.7-16.9) L D 11/08/16 12:10 Hct 32.7 % (35.4-49) L D 11/08/16 12:10 MCV 77.3 fl (80-96) L 11/08/16 12:10 MCH 22.7 pg (25.7-33.7) L 11/08/16 12:10 MCHC 29.4 g/dl (32.0-35.9) L 11/08/16 12:10 RDW 21.6 % (11.9-15.9) H 11/08/16 12:10 Plt Count 197 K/MM3 (134-434) 11/08/16 12:10 MPV 8.6 fl (7.5-11.1) 11/08/16 12:10 Neutrophils % 65.2 % (42.8-82.8) 11/08/16 12:10 Lymphocytes % 16.7 % (8-40) D 11/08/16 12:10 Monocytes % 16.5 % (3.8-10.2) H 11/08/16 12:10 Eosinophils % 0.9 % (0-4.5) 11/08/16 12:10 Basophils % 0.7 % (0-2.0) 11/08/16 12:10 Hypochromic-Microcytic 2+ 11/08/16 12:10 Anisocytosis 2+ 11/08/16 12:10 Microcytosis 1+ 11/08/16 12:10 Macrocytosis 1+ 11/08/16 12:10 Sodium 134 mmol/L (136-145) L 11/08/16 12:10 Potassium 3.3 mmol/L (3.5-5.1) L 11/08/16 12:10 Chloride 83 mmol/L (98-107) L D 11/08/16 12:10 Carbon Dioxide 44 mmol/L (21-32) H 11/08/16 12:10 Anion Gap 7 (8-16) L 11/08/16 12:10 BUN 85 mg/dL (7-18) H D 11/08/16 12:10 Creatinine 1.5 mg/dL (0.7-1.3) H D 11/08/16 12:10 Creat Clearance w eGFR 45.50 (>60) 11/08/16 12:10 Random Glucose 137 mg/dL (74-106) H D 11/08/16 12:10 Calcium 8.5 mg/dL (8.5-10.1) 11/08/16 12:10 Total Bilirubin 0.7 mg/dL (0.2-1.0) D 11/08/16 12:10 AST 32 U/L (15-37) D 11/08/16 12:10 ALT 15 U/L (12-78) D 11/08/16 12:10 Alkaline Phosphatase 188 U/L (45-117) H D 11/08/16 12:10 Creatine Kinase 52 IU/L (39-308) 11/08/16 12:10 Troponin I 0.14 ng/ml (0.00-0.05) H D 11/08/16 12:10 Total Protein 6.8 g/dl (6.4-8.2) 11/08/16 12:10 Albumin 2.1 g/dl (3.4-5.0) L 11/08/16 12:10 cath 08/02 all grafts patent (self to lad, svg to lcx, svg to rpda) Echo 07/2016: mod lve, sev reduced LV fn (global). mild rve with mild hypo ( severe TR, intrinsic RV fn likely more depressed), 1+ connie. 1+ mr, severe tr, mod phtn, pl effusion Echo 07/2015: sev lve, sev reduced lvef (global). grade 2 diastolic dysfunction. nl RV. mild connie. dilated ivc. mod mr, mod-sev tr, sev phtn, mild pr. Echo 08/03: sev LVE with severe decr EF; mild RV dil with moderate hypo; mod MR/ TR; RVSP >60 ecg 11/08/16: sr, vpaced, pvc cxr: chf a/p: 76 yo ex smoker, with h/o CAD s/p CABG, ischemic CM with EF 25% s/p BiVICD with secondary severe pulmonary hypertension, prior CVA, HL, copd, CKD, bph, chronic iron deficiency anemia here with chf. isch CMP (acute systolic CHF): -08/2016 admitted here for chf needing milrinone/vasopressin/lasix -despite high doses of diuretic (torsemide 100 bid with metolazone at times) he reaccumulated volume and is now back in chf exacerbation (goal wt 130 lbs, here now at 150) -will start lasix 80 iv bid and monitor daily wts, chemistry -may need milrinone +/- vasopressin if does not respond to iv lasix alone -not on bb, aceI at home due to prior side effects of hypotension, dizziness-- deferring now given low bp's still -has BiV icd CAD s/p h/o CABG 2006 - have been holding ASA, plavix due to anemia. - trop borderline elevated with nl ck, similar to prior baseline values, no indication of acs, trend for now -cont statin anemia -recent admits for anemia, responded to prbcs and hgb stable. GI w/u deferred then 2/2 chf. He has been off asa and plavix and hgb remains stable. h/o CVA: -was on ASA, plavix --> on hold as above. V Tach: - nsvt seen on prior ICD checks and on tele here in past as well. - electrolyte repletion prn - con't telemetry monitoring. - will cont deferring BB while still with low bp PAT/PSVT - brief episodes on tele here in past manjinder: -likely cardiorenal syndrome -diuresis plan as above, trend cr
--- NOTE | 2016-11-08 16:11 | EKG ---
Test Reason : Blood Pressure : / mmHG Vent. Rate : 083 BPM Atrial Rate : 082 BPM P-R Int : 000 ms QRS Dur : 174 ms QT Int : 500 ms P-R-T Axes : 000 226 043 degrees QTc Int : 587 ms Ventricular-paced rhythm WITH FREQUENT and consecutive PREMATURE VENTRICULAR COMPLEXES Biventricular pacemaker detected ABNORMAL ECG WHEN COMPARED WITH ECG OF 18-SEP-2016 15:47, VENT. RATE HAS INCREASED BY 4 BPM Confirmed by MICHAEL CERRATO, GABY ([id number]) on 11/08/2016 4:11:22 PM Referred By: Confirmed By:GABY RODRIGUEZ MD
[2016-11-08] MEDS ORDERED: ACETAMINOPHEN 325 MG TABLET (FP) PO PRN (17:08)
[2016-11-08] MEDS: ATORVASTATIN CA 10 MG TABLET (FP) PO SCH (21:34)
[2016-11-09] MEDS: FUROSEMIDE 40 MG/4 ML INJECTABLE VIAL IVPUSH SCH ×2 (06:44→13:27)
[2016-11-09 08:12] LABS: BASOPHIL 0.4 % (0-2.0); EOSINOPHIL 0.6 % (0-4.5); MCHC 30.1 g/dl (32.0-35.9); MEAN CELL VOLUME 76.5 fl (80-96); MEAN PLT VOLUME 8.4 fl (7.5-11.1); NEUTROPHILS 65.9 % (42.8-82.8); PLATELET COUNT 210 K/MM3 (134-434); RDW 21.9 % (11.9-15.9); WHITE BLOOD COUNT 6.6 K/mm3 (4.0-10.0)
[2016-11-09 08:17] LABS: ALBUMIN 2.1 g/dl (3.4-5.0); ANION GAP 7 (8-16); CALCIUM 8.6 mg/dL (8.5-10.1); CO2 45 mmol/L (21-32); CREATININE 1.4 mg/dL (0.7-1.3); GLUCOSE,RANDOM 105 mg/dL (74-106); SGOT/AST 24 U/L (15-37); SGPT/ALT 13 U/L (12-78)
[2016-11-09 08:22] LABS: ALK PHOS 178 U/L (45-117); BILIRUBIN,TOTAL 0.8 mg/dL (0.2-1.0); TOT PROT 6.7 g/dl (6.4-8.2); TROPONIN I 0.14 ng/ml (0.00-0.05)
[2016-11-09] MEDS: ALLOPURINOL 100 MG TABLET (FP) PO SCH (09:16)
[2016-11-09] MEDS: RANITIDINE HCL 150 MG TABLET (FP) PO SCH (09:16)
[2016-11-09] MEDS: ASCORBIC ACID 500 MG TABLET (FP) PO SCH (09:16)
[2016-11-09] MEDS: POLYETHYLENE GLYCOL 3350 119 GM BTL PO SCH (09:17)
[2016-11-09] MEDS: FERROUS SO4 325 MG TABLET (FP) PO SCH (09:17)
--- NOTE | 2016-11-09 11:31 | HP ---
Admitting History and Physical - Primary Care Physician PCP: Purnima Driscoll - Admission Chief Complaint: worsening edema History of Present Illness: Mr. Daksha Kerr is a 76 year old male with a significant past medical history of CAD s/p CABG with EF 25%, s/p BiVICD w/ secondary severe pulmonary HTN, prior CVA, HL, CKD, BPH, and Iron deficiency anemia w/ lethargy. He presents to the emergency department per his Solar Installation Supervisor (Félix Taylor) for management of his ascites. The patient denies chest pain, shortness of breath, headache and dizziness. Denies fever, chills, nausea, vomit, diarrhea and constipation. Denies dysuria, frequency, urgency and hematuria. Allergies: NKDA Past surgical history: CABG, BiVICD, pacemaker Social history: Extensive smoking history, denies current smoking/drinking. patient admitted to telemetry Started on IV Lasix Patient was recently seen by me in office Chart reviewed Patient seen and examined today Comfortable Sitting in chair No distress Chronic ill appearance History Source: Family Member, Medical Record Limitations to Obtaining History: Clinical Condition - Past Medical History Cardiovascular: Yes: CAD (status post CABG), CHF, HTN Pulmonary: Yes: COPD Renal/: Yes: Renal Inusuff, BPH - Past Surgical History Past Surgical History: Yes: AICD, CABG - Smoking History Smoking history: Former smoker Have you smoked in the past 12 months: No Aproximately how many cigarettes per day: 2 If you are a former smoker, when did you quit?: 6 months ago - Alcohol/Substance Use Hx Alcohol Use: No - Social History ADL: Family Assistance 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 History of Recent Travel: No Home Medications - Allergies Allergies/Adverse Reactions: Allergies Allergy/AdvReac Type Severity Reaction Status Date / Time No Known Drug Allergies Allergy Verified 09/18/16 16:04 - Home Medications Home Medications: Ambulatory Orders Atorvastatin Ca [Lipitor] 10 mg PO HS 02/08/14 Ranitidine [Zantac -] 150 mg PO DAILY 02/08/14 Ascorbic Acid [Vitamin C -] 500 mg PO DAILY #30 tablet 09/06/16 Ferrous Sulfate [Feosol] 325 mg PO DAILY #30 tab 09/06/16 Polyethylene Glycol 3350 [Miralax 119 gm Btl -] 17 gm PO DAILY #1 bottle Torsemide [Demadex -] 100 mg PO DAILY #90 tablet 09/06/16 Acetaminophen [Tylenol] 650 mg PO Q4H PRN 09/19/16 Allopurinol [Zyloprim -] 100 mg PO DAILY #90 tab 09/20/16 Metolazone 5 mg PO DAILY 11/08/16 Family Disease History - Family Disease History Family Disease History: Other: Father ( natural causes), Mother ( natural causes) Review of Systems - Review of Systems Constitutional: reports: No Symptoms Eyes: reports: No Symptoms Neck: reports: No Symptoms Cardiovascular: reports: No Symptoms Respiratory: reports: No Symptoms Gastrointestinal: reports: Other (ascites) Genitourinary: reports: No Symptoms Neurological: reports: Other (alert and awake) Physical Examination Vital Signs: Vital Signs Temperature 98.2 F 11/09/16 08:00 Pulse Rate 78 11/09/16 08:00 Respiratory Rate 16 11/09/16 08:00 Blood Pressure 106/66 11/09/16 08:00 O2 Sat by Pulse Oximetry (%) 100 11/08/16 21:00 Constitutional: Yes: No Distress, Calm Eyes: Yes: Conjunctiva Clear Neck: Yes: Supple, Trachea Midline Cardiovascular: Yes: Regular Rate and Rhythm Respiratory: Yes: Diminished Gastrointestinal: Yes: Distention (distended----soft but tense Ascites present + ++), Other Edema: LLE: 3+, RLE: 3+ Labs: CBC, BMP 11/09/16 05:53 11/09/16 05:53 Imaging - Results Chest X-ray: Report Reviewed EKG: Report Reviewed Problem List - Problems (1) Anemia Code(s): D64.9 - ANEMIA, UNSPECIFIED Qualifiers: Anemia type: iron deficiency Iron deficiency anemia type: unspecified iron deficiency Qualified Code(s): D50.9 - Iron deficiency anemia, unspecified (2) CHF exacerbation Code(s): I50.9 - HEART FAILURE, UNSPECIFIED (3) Pacemaker Code(s): Z95.0 - PRESENCE OF CARDIAC PACEMAKER (4) Ascites Code(s): R18.8 - OTHER ASCITES Assessment/Plan patient has worsening of CHF ascites secondary to above Overall condition poor I agree with trial of IV Lasix Clinically not in distress Monitor I's closely monitor weight Cardiology consult is noted and appreciated May need tapping--- if do not respond to Lasix Patient is DNR/DNI As discussed with patient's daughters in detail Will follow Monitor closely on telemetry at present
--- NOTE | 2016-11-09 16:20 | PN ---
Progress Note, Physician Chief Complaint: chf History of Present Illness: +sob, not severe ("regular")--per family member at bedside pt denies cp, palpitations, syncope ex cigs - Current Medication List Current Medications: Active Medications Acetaminophen (Tylenol -) 650 mg PO Q4H PRN PRN Reason: FEVER OR PAIN Allopurinol (Zyloprim -) 100 mg PO DAILY [facility] Last Admin: 11/09/16 09:16 Dose: 100 mg Ascorbic Acid (Vitamin C -) 500 mg PO DAILY [facility] Last Admin: 11/09/16 09:16 Dose: 500 mg Atorvastatin Calcium (Lipitor -) 10 mg PO HS [facility] Last Admin: 11/08/16 21:34 Dose: 10 mg Ferrous Sulfate (Feosol -) 325 mg PO DAILY [facility] Last Admin: 11/09/16 09:17 Dose: 325 mg Furosemide (Lasix Injection -) 80 mg IVPUSH BID@0600,1400 [facility] Last Admin: 11/09/16 13:27 Dose: 80 mg Polyethylene Glycol (Miralax (For Daily Use) -) 17 gm PO DAILY [facility] Last Admin: 11/09/16 09:17 Dose: 17 gm Ranitidine HCl (Zantac -) 150 mg PO DAILY [facility] Last Admin: 11/09/16 09:16 Dose: 150 mg - Objective Vital Signs: Vital Signs Temperature 98 F 11/09/16 13:40 Pulse Rate 76 11/09/16 13:40 Respiratory Rate 16 11/09/16 13:40 Blood Pressure 108/72 11/09/16 13:40 O2 Sat by Pulse Oximetry (%) 98 11/09/16 09:00 Constitutional: Yes: No Distress, Calm Eyes: No: Sclera Icterus HENT: No: Nasal Congestion Cardiovascular: Yes: Regular Rate and Rhythm, JVD (++ (EJs)), S1, S2, Other ( PMI non diplaced). No: Gallop, Murmur Respiratory: Yes: CTA Bilaterally, Diminished (bases). No: Accessory Muscle Use , Rales, Wheezes Gastrointestinal: Yes: Normal Bowel Sounds, Soft. No: Tenderness Musculoskeletal: Yes: Other (No kyphosis) Extremities: No: Cold, Cyanosis Edema: Yes (2+ pretib) Integumentary: No: Jaundice Neurological: Yes: Alert. No: Seizure Psychiatric: No: Agitated Labs: CBC, BMP 11/09/16 05:53 11/09/16 05:53 - ....Imaging EKG: Other (tele: NSR, V-s/V-P; freq runs NSVT (short)) Assessment/Plan cath 2012 all grafts patent (self to lad, svg to lcx, svg to rpda) Echo 07/2016: mod lve, sev reduced LV fn (global). mild rve with mild hypo ( severe TR, intrinsic RV fn likely more depressed), 1+ mr, severe tr, mod phtn, + pl effusion Echo 07/2015: sev lve, sev reduced lvef (global). grade 2 diastolic dysfunction. nl RV. mild connie. dilated ivc. mod mr, mod-sev tr, sev phtn, mild pr. Echo 08/03: sev LVE with severe decr EF; mild RV dil with moderate hypo; mod MR/ TR; RVSP >60 ecg 11/08/16: sr, vpaced, pvc cxr: chf a/p: 76 yo ex smoker, with h/o CAD s/p CABG, ischemic CM with EF 25% s/p BiVICD with secondary severe pulmonary hypertension, prior CVA, HL, copd, CKD, bph, chronic iron deficiency anemia here with chf. isch CMP/acute systolic CHF: -08/2016 admitted here for chf needing milrinone/vasopressin/lasix -despite high doses of diuretic (torsemide 100 bid with metolazone at times) he reaccumulated volume and is now back in chf exacerbation (goal wt 130 lbs, here now at 150) -started lasix 80 iv bid here -wt not accurate, 150 yest, 170 today -given was on equivalent of 200mg po daily lasix at home (i.e. torsemide 100mg) , will double that dose = lasix 100mg iv bid. 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 - trop borderline intermediate range and no change x 2, no clinical signs ACS here -cont statin anemia -recent admits for anemia, responded to prbcs and hgb stable. GI w/u deferred then 2/2 chf. He has been off asa and plavix and hgb remains stable. h/o CVA: -was on ASA, plavix --> on hold as above. V Tach: - nsvt seen on prior ICD checks and on tele here in past as well. - freq VT on tele here - replete K/Mag aggressively (usual goals) - con't telemetry monitoring. - will cont deferring BB while still with low bp PAT/PSVT - brief episodes on tele here in past manjinder: -likely cardiorenal syndrome -diuresis plan as above, trend cr
[2016-11-09] MEDS ORDERED: POTASSIUM CHLORIDE TABS 20 MEQ TABLET.ER (FP) PO ONE ×2 (17:38→21:00)
[2016-11-09] MEDS: ATORVASTATIN CA 10 MG TABLET (FP) PO SCH (21:15)
[2016-11-09] MEDS ORDERED: POTASSIUM CHLORIDE TABS 20 MEQ TABLET.ER (FP) PO SCH (22:00)
[2016-11-10] MEDS: FUROSEMIDE 40 MG/4 ML INJECTABLE VIAL IVPUSH SCH ×2 (06:13→16:41)
[2016-11-10 07:27] LABS: MCHC 29.9 g/dl (32.0-35.9); MEAN CELL VOLUME 76.9 fl (80-96); MEAN PLT VOLUME 8.5 fl (7.5-11.1); PLATELET COUNT 201 K/MM3 (134-434); RDW 21.3 % (11.9-15.9); WHITE BLOOD COUNT 6.6 K/mm3 (4.0-10.0)
[2016-11-10 07:58] LABS: CALCIUM 8.7 mg/dL (8.5-10.1); GLUCOSE,RANDOM 105 mg/dL (74-106)
[2016-11-10 08:01] LABS: INR 1.43 (0.82-1.09); PROTHROMBIN TIME (PATIENT) 15.9 SEC (9.98-11.88)
[2016-11-10 08:03] LABS: ALK PHOS 158 U/L (45-117); CREATININE 1.4 mg/dL (0.7-1.3); SGOT/AST 24 U/L (15-37); SGPT/ALT 12 U/L (12-78); TOT PROT 6.5 g/dl (6.4-8.2)
[2016-11-10 09:41] LABS: ANISOCYTOSIS 2+; HYPOCHROMIA 1+; PLATELET ESTIMATE ADEQUATE (NORMAL)
[2016-11-10 09:51] LABS: ANION GAP 7 (8-16); CO2 45 mmol/L (21-32)
[2016-11-10] MEDS: ASCORBIC ACID 500 MG TABLET (FP) PO SCH (09:52)
[2016-11-10] MEDS: FERROUS SO4 325 MG TABLET (FP) PO SCH (09:52)
[2016-11-10] MEDS: ALLOPURINOL 100 MG TABLET (FP) PO SCH (09:52)
[2016-11-10] MEDS: RANITIDINE HCL 150 MG TABLET (FP) PO SCH (09:52)
[2016-11-10] MEDS: POLYETHYLENE GLYCOL 3350 119 GM BTL PO SCH (09:52)
[2016-11-10] MEDS: POTASSIUM CHLORIDE TABS 20 MEQ TABLET.ER (FP) PO SCH (09:52)
--- NOTE | 2016-11-10 10:38 | PN ---
Progress Note, Physician History of Present Illness: No events overnight Tele: 70-80s with PVC, paced - Current Medication List Current Medications: Active Medications Acetaminophen (Tylenol -) 650 mg PO Q4H PRN PRN Reason: FEVER OR PAIN Allopurinol (Zyloprim -) 100 mg PO DAILY [facility] Last Admin: 11/10/16 09:52 Dose: 100 mg Ascorbic Acid (Vitamin C -) 500 mg PO DAILY [facility] Last Admin: 11/10/16 09:52 Dose: 500 mg Atorvastatin Calcium (Lipitor -) 10 mg PO HS [facility] Last Admin: 11/09/16 21:15 Dose: 10 mg Ferrous Sulfate (Feosol -) 325 mg PO DAILY [facility] Last Admin: 11/10/16 09:52 Dose: 325 mg Furosemide (Lasix Injection -) 80 mg IVPUSH BID@0600,1400 [facility] Last Admin: 11/10/16 06:13 Dose: 80 mg Polyethylene Glycol (Miralax (For Daily Use) -) 17 gm PO DAILY [facility] Last Admin: 11/10/16 09:52 Dose: 17 gm Potassium Chloride (K-Dur -) 40 meq PO DAILY [facility] Last Admin: 11/10/16 09:52 Dose: 40 meq Ranitidine HCl (Zantac -) 150 mg PO DAILY [facility] Last Admin: 11/10/16 09:52 Dose: 150 mg - Objective Vital Signs: Vital Signs Temperature 97.9 F 11/10/16 06:00 Pulse Rate 82 11/10/16 06:00 Respiratory Rate 18 11/10/16 06:00 Blood Pressure 104/54 11/10/16 06:00 O2 Sat by Pulse Oximetry (%) 96 11/09/16 21:00 Constitutional: Yes: Other (Somnolent but arrousable) Eyes: Yes: Conjunctiva Clear HENT: Yes: Atraumatic, Normocephalic Neck: Yes: WNL, Trachea Midline Cardiovascular: Yes: Pulse Irregular, JVD Respiratory: Yes: CTA Bilaterally Gastrointestinal: Yes: Normal Bowel Sounds, Soft Musculoskeletal: Yes: WNL Edema: Yes Edema: LLE: 2+, RLE: 2+ Labs: CBC, BMP 11/10/16 05:20 11/10/16 05:20 INR, PTT INR 1.43 (0.82-1.09) H 11/10/16 05:20 Assessment/Plan a/p: 76 yo ex smoker, with h/o CAD s/p CABG, ischemic CM with EF 25% s/p BiVICD with secondary severe pulmonary hypertension, prior CVA, HL, copd, CKD, bph, chronic iron deficiency anemia here with chf. isch CMP/acute systolic CHF: -08/2016 admitted here for chf needing milrinone/vasopressin/lasix -despite high doses of diuretic (torsemide 100 bid with metolazone at times) he reaccumulated volume and is now back in chf exacerbation (goal wt 130 lbs, here now at 150) -started lasix 80 iv bid here -wt not accurate, 150 yest, 170 today -given was on equivalent of 200mg po daily lasix at home (i.e. torsemide 100mg) , will double that dose = lasix 100mg iv bid. 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 Continue lasix 80mg BID CAD s/p h/o CABG 2006 - have been holding ASA, plavix due to anemia. - trop borderline intermediate range and no change x 2, no clinical signs ACS here -cont statin anemia -recent admits for anemia, responded to prbcs and hgb stable. GI w/u deferred then 2/2 chf. He has been off asa and plavix and hgb remains stable. h/o CVA: -was on ASA, plavix --> on hold as above. V Tach: - nsvt seen on prior ICD checks and on tele here in past as well. - freq VT on tele here - replete K/Mag aggressively (usual goals) - con't telemetry monitoring. - will cont deferring BB while still with low bp PAT/PSVT - brief episodes on tele here in past manjinder: -likely cardiorenal syndrome -diuresis plan as above, trend cr
--- NOTE | 2016-11-10 10:45 | PN ---
Progress Note, Physician Chief Complaint: no distress events noted no SOB or chest pain - Current Medication List Current Medications: Active Medications Acetaminophen (Tylenol -) 650 mg PO Q4H PRN PRN Reason: FEVER OR PAIN Allopurinol (Zyloprim -) 100 mg PO DAILY [facility] Last Admin: 11/10/16 09:52 Dose: 100 mg Ascorbic Acid (Vitamin C -) 500 mg PO DAILY [facility] Last Admin: 11/10/16 09:52 Dose: 500 mg Atorvastatin Calcium (Lipitor -) 10 mg PO HS [facility] Last Admin: 11/09/16 21:15 Dose: 10 mg Ferrous Sulfate (Feosol -) 325 mg PO DAILY [facility] Last Admin: 11/10/16 09:52 Dose: 325 mg Furosemide (Lasix Injection -) 80 mg IVPUSH BID@0600,1400 [facility] Last Admin: 11/10/16 06:13 Dose: 80 mg Polyethylene Glycol (Miralax (For Daily Use) -) 17 gm PO DAILY [facility] Last Admin: 11/10/16 09:52 Dose: 17 gm Potassium Chloride (K-Dur -) 40 meq PO DAILY [facility] Last Admin: 11/10/16 09:52 Dose: 40 meq Ranitidine HCl (Zantac -) 150 mg PO DAILY [facility] Last Admin: 11/10/16 09:52 Dose: 150 mg - Objective Vital Signs: Vital Signs Temperature 97.9 F 11/10/16 06:00 Pulse Rate 82 11/10/16 06:00 Respiratory Rate 18 11/10/16 06:00 Blood Pressure 104/54 11/10/16 06:00 O2 Sat by Pulse Oximetry (%) 96 11/09/16 21:00 Constitutional: Yes: No Distress, Calm Cardiovascular: Yes: Regular Rate and Rhythm, Murmur Respiratory: Yes: Diminished Gastrointestinal: Yes: Normal Bowel Sounds, Soft, Abdomen, Obese, Distention. No: Tenderness Edema: Yes Edema: LLE: 2+, RLE: 2+ Neurological: Yes: Alert Labs: CBC, BMP 11/10/16 05:20 11/10/16 05:20 INR, PTT INR 1.43 (0.82-1.09) H 11/10/16 05:20 Problem List - Problems (1) CHF (congestive heart failure) Code(s): I50.9 - HEART FAILURE, UNSPECIFIED Qualifiers: Congestive heart failure chronicity: acute on chronic Qualified Code (s): - (2) CKD (chronic kidney disease) Code(s): N18.9 - CHRONIC KIDNEY DISEASE, UNSPECIFIED Qualifiers: Chronic kidney disease stage: stage 3 (moderate) Qualified Code(s): N18.3 - Chronic kidney disease, stage 3 (moderate) (3) Anemia Code(s): D64.9 - ANEMIA, UNSPECIFIED Qualifiers: Anemia type: iron deficiency Iron deficiency anemia type: unspecified iron deficiency Qualified Code(s): D50.9 - Iron deficiency anemia, unspecified (4) CHF exacerbation Code(s): I50.9 - HEART FAILURE, UNSPECIFIED (5) COPD (chronic obstructive pulmonary disease) Code(s): J44.9 - CHRONIC OBSTRUCTIVE PULMONARY DISEASE, UNSPECIFIED Assessment/Plan PLAN On IV Lasix 80mg BID check weights-- weight decreased from yesterday creatinine stable continue with meds troponins elevated due to CKD DVT prophylaxis-- Heparin sc
[2016-11-10] MEDS: HEPARIN NA (PORCINE) 5,000 UNITS/ML 1ML VIAL SQ SCH (21:32)
[2016-11-10] MEDS: ATORVASTATIN CA 10 MG TABLET (FP) PO SCH (21:32)
[2016-11-11] MEDS: FUROSEMIDE 40 MG/4 ML INJECTABLE VIAL IVPUSH SCH ×2 (06:12→15:10)
[2016-11-11 08:37] LABS: CALCIUM 8.9 mg/dL (8.5-10.1); GLUCOSE,RANDOM 118 mg/dL (74-106); SGOT/AST 23 U/L (15-37); SGPT/ALT 12 U/L (12-78)
[2016-11-11 08:38] LABS: ALK PHOS 168 U/L (45-117); BILIRUBIN,TOTAL 0.9 mg/dL (0.2-1.0); CREATININE 1.4 mg/dL (0.7-1.3); TOT PROT 6.5 g/dl (6.4-8.2)
[2016-11-11 08:42] LABS: BASOPHIL 0.6 % (0-2.0); EOSINOPHIL 1.1 % (0-4.5); MCH 22.8 pg (25.7-33.7); MCHC 29.4 g/dl (32.0-35.9); MEAN CELL VOLUME 77.7 fl (80-96); MEAN PLT VOLUME 8.7 fl (7.5-11.1); NEUTROPHILS 71.4 % (42.8-82.8); PLATELET COUNT 194 K/MM3 (134-434); RDW 21.7 % (11.9-15.9); WHITE BLOOD COUNT 7.1 K/mm3 (4.0-10.0)
--- NOTE | 2016-11-11 09:58 | PN ---
Progress Note, Physician Chief Complaint: no distress no SOB or chest pain - Current Medication List Current Medications: Active Medications Acetaminophen (Tylenol -) 650 mg PO Q4H PRN PRN Reason: FEVER OR PAIN Allopurinol (Zyloprim -) 100 mg PO DAILY [facility] Last Admin: 11/10/16 09:52 Dose: 100 mg Ascorbic Acid (Vitamin C -) 500 mg PO DAILY [facility] Last Admin: 11/10/16 09:52 Dose: 500 mg Atorvastatin Calcium (Lipitor -) 10 mg PO HS [facility] Last Admin: 11/10/16 21:32 Dose: 10 mg Ferrous Sulfate (Feosol -) 325 mg PO DAILY [facility] Last Admin: 11/10/16 09:52 Dose: 325 mg Furosemide (Lasix Injection -) 80 mg IVPUSH BID@0600,1400 [facility] Last Admin: 11/11/16 06:12 Dose: 80 mg Heparin Sodium (Porcine) (Heparin -) 5,000 unit SQ BID [facility] Last Admin: 11/10/16 21:32 Dose: 5,000 unit Polyethylene Glycol (Miralax (For Daily Use) -) 17 gm PO DAILY [facility] Last Admin: 11/10/16 09:52 Dose: 17 gm Potassium Chloride (K-Dur -) 40 meq PO DAILY [facility] Last Admin: 11/10/16 09:52 Dose: 40 meq Ranitidine HCl (Zantac -) 150 mg PO DAILY [facility] Last Admin: 11/10/16 09:52 Dose: 150 mg - Objective Vital Signs: Vital Signs Temperature 97.7 F 11/11/16 06:00 Pulse Rate 80 11/11/16 06:00 Respiratory Rate 20 11/11/16 06:00 Blood Pressure 124/76 11/11/16 06:00 O2 Sat by Pulse Oximetry (%) 92 L 11/10/16 21:00 Constitutional: Yes: No Distress Cardiovascular: Yes: Regular Rate and Rhythm, Murmur Respiratory: Yes: Diminished Gastrointestinal: Yes: Normal Bowel Sounds, Soft, Distention. No: Tenderness Edema: Yes Edema: LLE: 2+, RLE: 2+ Psychiatric: Yes: Alert Labs: CBC, BMP 11/11/16 05:50 11/11/16 05:50 INR, PTT INR 1.43 (0.82-1.09) H 11/10/16 05:20 Problem List - Problems (1) CHF (congestive heart failure) Code(s): I50.9 - HEART FAILURE, UNSPECIFIED Qualifiers: Congestive heart failure chronicity: acute on chronic (2) CKD (chronic kidney disease) Code(s): N18.9 - CHRONIC KIDNEY DISEASE, UNSPECIFIED Qualifiers: Chronic kidney disease stage: stage 3 (moderate) Qualified Code(s): N18.3 - Chronic kidney disease, stage 3 (moderate) (3) Anemia Code(s): D64.9 - ANEMIA, UNSPECIFIED Qualifiers: Anemia type: iron deficiency Iron deficiency anemia type: unspecified iron deficiency Qualified Code(s): D50.9 - Iron deficiency anemia, unspecified (4) CHF exacerbation Code(s): I50.9 - HEART FAILURE, UNSPECIFIED (5) COPD (chronic obstructive pulmonary disease) Code(s): J44.9 - CHRONIC OBSTRUCTIVE PULMONARY DISEASE, UNSPECIFIED Assessment/Plan Weight remains the same On Lasix May need therapeutic paracetesis if no improvement continue with meds OOB PT eval
[2016-11-11 10:03] LABS: ANION GAP 5 (8-16); CO2 46 mmol/L (21-32)
[2016-11-11] MEDS: POTASSIUM CHLORIDE TABS 20 MEQ TABLET.ER (FP) PO SCH (10:03)
[2016-11-11] MEDS: RANITIDINE HCL 150 MG TABLET (FP) PO SCH (10:03)
[2016-11-11] MEDS: FERROUS SO4 325 MG TABLET (FP) PO SCH (10:03)
[2016-11-11] MEDS: ASCORBIC ACID 500 MG TABLET (FP) PO SCH (10:03)
[2016-11-11] MEDS: HEPARIN NA (PORCINE) 5,000 UNITS/ML 1ML VIAL SQ SCH ×2 (10:03→21:03)
[2016-11-11] MEDS: ALLOPURINOL 100 MG TABLET (FP) PO SCH (10:03)
[2016-11-11] MEDS: POLYETHYLENE GLYCOL 3350 119 GM BTL PO SCH (10:04)
[2016-11-11 10:21] LABS: ANISOCYTOSIS 2+; HYPOCHROMIA 1+; PLATELET ESTIMATE ADEQUATE (NORMAL); POLYCHROMASIA FEW
--- NOTE | 2016-11-11 12:10 | PN ---
Progress Note, Physician History of Present Illness: No complaints No dyspnea - Current Medication List Current Medications: Active Medications Acetaminophen (Tylenol -) 650 mg PO Q4H PRN PRN Reason: FEVER OR PAIN Allopurinol (Zyloprim -) 100 mg PO DAILY [facility] Last Admin: 11/11/16 10:03 Dose: 100 mg Ascorbic Acid (Vitamin C -) 500 mg PO DAILY [facility] Last Admin: 11/11/16 10:03 Dose: 500 mg Atorvastatin Calcium (Lipitor -) 10 mg PO HS [facility] Last Admin: 11/10/16 21:32 Dose: 10 mg Ferrous Sulfate (Feosol -) 325 mg PO DAILY [facility] Last Admin: 11/11/16 10:03 Dose: 325 mg Furosemide (Lasix Injection -) 80 mg IVPUSH BID@0600,1400 [facility] Last Admin: 11/11/16 06:12 Dose: 80 mg Heparin Sodium (Porcine) (Heparin -) 5,000 unit SQ BID [facility] Last Admin: 11/11/16 10:03 Dose: 5,000 unit Polyethylene Glycol (Miralax (For Daily Use) -) 17 gm PO DAILY [facility] Last Admin: 11/11/16 10:04 Dose: 17 gm Potassium Chloride (K-Dur -) 40 meq PO DAILY [facility] Last Admin: 11/11/16 10:03 Dose: 40 meq Ranitidine HCl (Zantac -) 150 mg PO DAILY [facility] Last Admin: 11/11/16 10:03 Dose: 150 mg - Objective Vital Signs: Vital Signs Temperature 98.1 F 11/11/16 10:00 Pulse Rate 95 H 11/11/16 10:00 Respiratory Rate 18 11/11/16 10:00 Blood Pressure 100/48 11/11/16 10:00 O2 Sat by Pulse Oximetry (%) 98 11/11/16 10:00 Constitutional: Yes: Well Nourished, No Distress Eyes: Yes: WNL, Conjunctiva Clear HENT: Yes: WNL, Atraumatic, Normocephalic Neck: Yes: WNL Cardiovascular: Yes: Pulse Irregular, JVD, Murmur Respiratory: Yes: Rales Gastrointestinal: Yes: Normal Bowel Sounds Edema: Yes Edema: LLE: 2+, RLE: 2+ Labs: CBC, BMP 11/11/16 05:50 11/11/16 05:50 INR, PTT INR 1.43 (0.82-1.09) H 11/10/16 05:20 Assessment/Plan a/p: 76 yo ex smoker, with h/o CAD s/p CABG, ischemic CM with EF 25% s/p BiVICD with secondary severe pulmonary hypertension, prior CVA, HL, copd, CKD, bph, chronic iron deficiency anemia here with chf. isch CMP/acute systolic CHF: -08/2016 admitted here for chf needing milrinone/vasopressin/lasix -despite high doses of diuretic (torsemide 100 bid with metolazone at times) he reaccumulated volume and is now back in chf exacerbation (goal wt 130 lbs, here now at 150) -started lasix 80 iv bid here -wt not accurate, 150 yest, 170 today -given was on equivalent of 200mg po daily lasix at home (i.e. torsemide 100mg) , will double that dose = lasix 100mg iv bid. 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 Continue lasix 80mg BID 11/11: Weight at 169#, Creat stable. remains volume up on exam. Will add metolazone 2.5mg before AM lasix dose. CAD s/p h/o CABG 2006 - have been holding ASA, plavix due to anemia. - trop borderline intermediate range and no change x 2, no clinical signs ACS here -cont statin anemia -recent admits for anemia, responded to prbcs and hgb stable. GI w/u deferred then 2/2 chf. He has been off asa and plavix and hgb remains stable. h/o CVA: -was on ASA, plavix --> on hold as above. V Tach: - nsvt seen on prior ICD checks and on tele here in past as well. - freq VT on tele here - replete K/Mag aggressively (usual goals) - con't telemetry monitoring. - will cont deferring BB while still with low bp PAT/PSVT - brief episodes on tele here in past manjinder: -likely cardiorenal syndrome -diuresis plan as above, trend cr
[2016-11-11] MEDS ORDERED: METOLAZONE 2.5 MG TABLET (FP) PO SCH (13:30)
[2016-11-11] MEDS: ATORVASTATIN CA 10 MG TABLET (FP) PO SCH (21:03)
[2016-11-12] MEDS: FUROSEMIDE 40 MG/4 ML INJECTABLE VIAL IVPUSH SCH ×2 (06:26→14:38)
[2016-11-12 07:04] LABS: BASOPHIL 0.5 % (0-2.0); EOSINOPHIL 1.1 % (0-4.5); MCH 22.8 pg (25.7-33.7); MCHC 29.3 g/dl (32.0-35.9); MEAN CELL VOLUME 77.8 fl (80-96); MEAN PLT VOLUME 8.7 fl (7.5-11.1); NEUTROPHILS 67.1 % (42.8-82.8); PLATELET COUNT 217 K/MM3 (134-434); RDW 21.8 % (11.9-15.9); WHITE BLOOD COUNT 7.1 K/mm3 (4.0-10.0)
[2016-11-12 07:37] LABS: CALCIUM 8.9 mg/dL (8.5-10.1); CREATININE 1.4 mg/dL (0.7-1.3); GLUCOSE,RANDOM 108 mg/dL (74-106); MAGNESIUM 2.6 mg/dL (1.8-2.4); SGOT/AST 22 U/L (15-37); SGPT/ALT 11 U/L (12-78)
[2016-11-12 07:39] LABS: ALK PHOS 155 U/L (45-117); TOT PROT 6.5 g/dl (6.4-8.2)
[2016-11-12 09:21] LABS: ANION GAP 4 (8-16); CO2 47 mmol/L (21-32)
--- NOTE | 2016-11-12 10:26 | PN ---
Progress Note (short form) - Note Progress Note: pt seen/ examined. chart reviewed pt looks and feels better losing weight daughter at bedside Vital Signs Temp 98.7 F 11/12/16 06:00 Pulse 78 11/12/16 06:00 Resp 20 11/12/16 06:00 BP 112/67 11/12/16 06:00 Pulse Ox 96 11/11/16 21:00 Intake & Output 11/11/16 11/11/16 11/12/16 11:59 23:59 11:59 Intake Total 280 210 110 Balance 280 210 110 Weight 169 lb 3.2 oz 164 lb 4 oz Intake: IV 40 10 10 SL 40 10 10 Oral 240 200 100 Other: Voiding Method Incontinent Incontinent Incontinent # Unmeasured Voids Void 1 2 2 Bowel Movement No No No Weight Measurement Method Patient Lift Scale Patient Lift Scale Active Medications Acetaminophen (Tylenol -) 650 mg PO Q4H PRN PRN Reason: FEVER OR PAIN Allopurinol (Zyloprim -) 100 mg PO DAILY [facility] Last Admin: 11/11/16 10:03 Dose: 100 mg Ascorbic Acid (Vitamin C -) 500 mg PO DAILY [facility] Last Admin: 11/11/16 10:03 Dose: 500 mg Atorvastatin Calcium (Lipitor -) 10 mg PO HS [facility] Last Admin: 11/11/16 21:03 Dose: 10 mg Ferrous Sulfate (Feosol -) 325 mg PO DAILY [facility] Last Admin: 11/11/16 10:03 Dose: 325 mg Furosemide (Lasix Injection -) 80 mg IVPUSH BID@0600,1400 [facility] Last Admin: 11/12/16 06:26 Dose: 80 mg Heparin Sodium (Porcine) (Heparin -) 5,000 unit SQ BID [facility] Last Admin: 11/11/16 21:03 Dose: 5,000 unit Metolazone (Zaroxolyn -) 2.5 mg PO DAILY@1330 [facility] Last Admin: 11/11/16 14:17 Dose: 2.5 mg Polyethylene Glycol (Miralax (For Daily Use) -) 17 gm PO DAILY [facility] Last Admin: 11/11/16 10:04 Dose: 17 gm Potassium Chloride (K-Dur -) 40 meq PO DAILY [facility] Last Admin: 11/11/16 10:03 Dose: 40 meq Ranitidine HCl (Zantac -) 150 mg PO DAILY [facility] Last Admin: 11/11/16 10:03 Dose: 150 mg CBC, BMP 11/12/16 05:35 11/12/16 05:35 Physical Examination Constitutional: Yes: No Distress, Calm/ comfortable. Eyes: Yes: Conjunctiva Clear Neck: Yes: Supple, Trachea Midline Cardiovascular: Yes: Regular Rate and Rhythm Respiratory: Yes: Diminished at bases . Gastrointestinal: Yes: Distention (distended----soft -- decreased distension). Imaging - Results Chest X-ray: Report Reviewed EKG: Report Reviewed Assessment/Plan clinically better continue present care agree with Metazoline monitor weight. lost soem weight. daily oob - chair Condition better but remains gaurded due to multiple comorbidities-- will follow I discussed in detail with pts daughter who is at bedside. Problem List - Problems (1) Anemia Code(s): D64.9 - ANEMIA, UNSPECIFIED Qualifiers: Anemia type: iron deficiency Iron deficiency anemia type: unspecified iron deficiency Qualified Code(s): D50.9 - Iron deficiency anemia, unspecified (2) CHF exacerbation Code(s): I50.9 - HEART FAILURE, UNSPECIFIED (3) Pacemaker Code(s): Z95.0 - PRESENCE OF CARDIAC PACEMAKER (4) Ascites Code(s): R18.8 - OTHER ASCITES
--- NOTE | 2016-11-12 10:28 | PN ---
Progress Note, Physician Chief Complaint: chf History of Present Illness: breathing better he says no cp, palpit, syncope ex cigs - Current Medication List Current Medications: Active Medications Acetaminophen (Tylenol -) 650 mg PO Q4H PRN PRN Reason: FEVER OR PAIN Allopurinol (Zyloprim -) 100 mg PO DAILY [facility] Last Admin: 11/11/16 10:03 Dose: 100 mg Ascorbic Acid (Vitamin C -) 500 mg PO DAILY [facility] Last Admin: 11/11/16 10:03 Dose: 500 mg Atorvastatin Calcium (Lipitor -) 10 mg PO HS [facility] Last Admin: 11/11/16 21:03 Dose: 10 mg Ferrous Sulfate (Feosol -) 325 mg PO DAILY [facility] Last Admin: 11/11/16 10:03 Dose: 325 mg Furosemide (Lasix Injection -) 80 mg IVPUSH BID@0600,1400 [facility] Last Admin: 11/12/16 06:26 Dose: 80 mg Heparin Sodium (Porcine) (Heparin -) 5,000 unit SQ BID [facility] Last Admin: 11/11/16 21:03 Dose: 5,000 unit Metolazone (Zaroxolyn -) 2.5 mg PO DAILY@1330 [facility] Last Admin: 11/11/16 14:17 Dose: 2.5 mg Polyethylene Glycol (Miralax (For Daily Use) -) 17 gm PO DAILY [facility] Last Admin: 11/11/16 10:04 Dose: 17 gm Potassium Chloride (K-Dur -) 40 meq PO DAILY [facility] Last Admin: 11/11/16 10:03 Dose: 40 meq Ranitidine HCl (Zantac -) 150 mg PO DAILY [facility] Last Admin: 11/11/16 10:03 Dose: 150 mg - Objective Vital Signs: Vital Signs Temperature 98.7 F 11/12/16 06:00 Pulse Rate 78 11/12/16 06:00 Respiratory Rate 20 11/12/16 06:00 Blood Pressure 112/67 11/12/16 06:00 O2 Sat by Pulse Oximetry (%) 96 11/11/16 21:00 Constitutional: Yes: No Distress, Calm Eyes: No: Sclera Icterus HENT: No: Nasal Congestion Cardiovascular: Yes: Regular Rate and Rhythm, JVD (++ EJs), S1, S2, Other (PMI non diplaced). No: Gallop, Murmur Respiratory: Yes: Regular, Diminished (bases). No: Accessory Muscle Use, Rales , Wheezes Gastrointestinal: Yes: Normal Bowel Sounds, Soft. No: Tenderness Musculoskeletal: Yes: Other (No kyphosis) Extremities: No: Cold Edema: Yes (2+ low pretib/ankles) Integumentary: No: Jaundice Neurological: Yes: Alert. No: Seizure Psychiatric: No: Agitated Labs: CBC, BMP 11/12/16 05:35 11/12/16 05:35 INR, PTT INR 1.43 (0.82-1.09) H 11/10/16 05:20 - ....Imaging EKG: Other (tele: NSR, V-P/V-S; freq runs NSVT (some longish)) Assessment/Plan cath 2012 all grafts patent (self to lad, svg to lcx, svg to rpda) Echo 07/2016: mod lve, sev reduced LV fn (global). mild rve with mild hypo ( severe TR, intrinsic RV fn likely more depressed), 1+ mr, severe tr, mod phtn, + pl effusion Echo 07/2015: sev lve, sev reduced lvef (global). grade 2 diastolic dysfunction. nl RV. mild connie. dilated ivc. mod mr, mod-sev tr, sev phtn, mild pr. Echo 08/03: sev LVE with severe decr EF; mild RV dil with moderate hypo; mod MR/ TR; RVSP >60 ecg 11/08/16: sr, vpaced, pvc cxr: chf a/p: 76 yo ex smoker, with h/o CAD s/p CABG, ischemic CM with EF 25% s/p BiVICD with secondary severe pulmonary hypertension, prior CVA, HL, copd, CKD, bph, chronic iron deficiency anemia here with chf. isch CMP/acute systolic CHF: -08/2016 admitted here for chf needing milrinone/vasopressin/lasix -despite high doses of diuretic (torsemide 100 bid with metolazone at times) he reaccumulated volume and is now back in chf exacerbation (goal wt 130 lbs, here now at 150) -started lasix 80 iv bid here -wt not accurate, 150 yest, 170 today -given was on equivalent of 200mg po daily lasix at home (i.e. torsemide 100mg) , will double that dose = lasix 100mg iv bid. 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 Continue lasix 80mg BID -11/11: Weight at 169#, Creat stable. remains volume up on exam. Will add metolazone 2.5mg before AM lasix dose. -11/12: renal fxn and wt remained unchanged on lasix 80 IV BID, until metolazone (2.5) given yest--wt down today, renal fxn and lytes stable. cont lasix (incr to 100 iv bid), with metolazone 2.5 qd -try resume low dose BB--metopr succinate 12.5 qd--titrate up to 25 qd as long as he remains asymptomatic with BP close to 90 V Tach: - nsvt seen on prior ICD checks and on tele here in past as well. - freq VT on tele here - replete K/Mag aggressively (usual goals) - freq runs, some longish (though non-sustained) - resume BB, as above CAD s/p h/o CABG 2006 - have been holding ASA, plavix due to anemia. - trop borderline intermediate range and no change x 2, no clinical signs ACS here -cont statin anemia -recent admits for anemia, responded to prbcs and hgb stable. GI w/u deferred then 2/2 chf. He has been off asa and plavix and hgb remains stable. h/o CVA: -was on ASA, plavix --> on hold as above. PAT/PSVT - brief episodes on tele here in past manjinder: -likely cardiorenal syndrome -diuresis plan as above, trend cr
[2016-11-12] MEDS: ALLOPURINOL 100 MG TABLET (FP) PO SCH (11:04)
[2016-11-12] MEDS: ASCORBIC ACID 500 MG TABLET (FP) PO SCH (11:04)
[2016-11-12] MEDS: HEPARIN NA (PORCINE) 5,000 UNITS/ML 1ML VIAL SQ SCH ×2 (11:05→21:11)
[2016-11-12] MEDS: FERROUS SO4 325 MG TABLET (FP) PO SCH (11:05)
[2016-11-12] MEDS: RANITIDINE HCL 150 MG TABLET (FP) PO SCH (11:05)
[2016-11-12] MEDS: POTASSIUM CHLORIDE TABS 20 MEQ TABLET.ER (FP) PO SCH ×2 (11:06→21:11)
[2016-11-12] MEDS: POLYETHYLENE GLYCOL 3350 119 GM BTL PO SCH (12:49)
[2016-11-12] MEDS: METOLAZONE 2.5 MG TABLET (FP) PO SCH (13:24)
[2016-11-12] MEDS: METOPROLOL SUCCINATE 25 MG TAB.SR.24H (FP) PO SCH (13:24)
[2016-11-12] MEDS: ATORVASTATIN CA 10 MG TABLET (FP) PO SCH (21:10)
[2016-11-13] MEDS: FUROSEMIDE 40 MG/4 ML INJECTABLE VIAL IVPUSH SCH ×2 (05:58→14:25)
[2016-11-13 07:54] LABS: GLUCOSE,RANDOM 151 mg/dL (74-106)
[2016-11-13 07:58] LABS: ALK PHOS 158 U/L (45-117); BILIRUBIN,TOTAL 0.9 mg/dL (0.2-1.0); CREATININE 1.4 mg/dL (0.7-1.3); SGOT/AST 23 U/L (15-37); SGPT/ALT 12 U/L (12-78); TOT PROT 6.5 g/dl (6.4-8.2)
[2016-11-13 08:22] LABS: BASOPHIL 0.5 % (0-2.0); EOSINOPHIL 1.4 % (0-4.5); MCH 22.9 pg (25.7-33.7); MCHC 29.3 g/dl (32.0-35.9); MEAN CELL VOLUME 78.2 fl (80-96); MEAN PLT VOLUME 8.5 fl (7.5-11.1); NEUTROPHILS 63.1 % (42.8-82.8); PLATELET COUNT 210 K/MM3 (134-434); RDW 21.7 % (11.9-15.9); WHITE BLOOD COUNT 6.5 K/mm3 (4.0-10.0)
[2016-11-13 09:04] LABS: ANION GAP 3 (8-16); CO2 48 mmol/L (21-32)
[2016-11-13] MEDS: RANITIDINE HCL 150 MG TABLET (FP) PO SCH (09:26)
[2016-11-13] MEDS: METOPROLOL SUCCINATE 25 MG TAB.SR.24H (FP) PO SCH (09:26)
[2016-11-13] MEDS: HEPARIN NA (PORCINE) 5,000 UNITS/ML 1ML VIAL SQ SCH (09:26)
[2016-11-13] MEDS: POTASSIUM CHLORIDE TABS 20 MEQ TABLET.ER (FP) PO SCH ×2 (09:26→21:24)
[2016-11-13] MEDS: POLYETHYLENE GLYCOL 3350 119 GM BTL PO SCH (09:26)
[2016-11-13] MEDS: FERROUS SO4 325 MG TABLET (FP) PO SCH (09:26)
[2016-11-13] MEDS: ASCORBIC ACID 500 MG TABLET (FP) PO SCH (09:27)
[2016-11-13] MEDS: ALLOPURINOL 100 MG TABLET (FP) PO SCH (09:27)
--- NOTE | 2016-11-13 09:54 | PN ---
Progress Note, Physician Chief Complaint: daughter at bedside pt is not in distress no abd pain no SOB - Current Medication List Current Medications: Active Medications Acetaminophen (Tylenol -) 650 mg PO Q4H PRN PRN Reason: FEVER OR PAIN Allopurinol (Zyloprim -) 100 mg PO DAILY [facility] Last Admin: 11/13/16 09:27 Dose: 100 mg Ascorbic Acid (Vitamin C -) 500 mg PO DAILY [facility] Last Admin: 11/13/16 09:27 Dose: 500 mg Atorvastatin Calcium (Lipitor -) 10 mg PO HS [facility] Last Admin: 11/12/16 21:10 Dose: 10 mg Ferrous Sulfate (Feosol -) 325 mg PO DAILY [facility] Last Admin: 11/13/16 09:26 Dose: 325 mg Furosemide (Lasix Injection -) 100 mg IVPUSH BID@0600,1400 [facility] Last Admin: 11/13/16 05:58 Dose: 100 mg Heparin Sodium (Porcine) (Heparin -) 5,000 unit SQ BID [facility] Last Admin: 11/13/16 09:26 Dose: 5,000 unit Metolazone (Zaroxolyn -) 2.5 mg PO DAILY@1330 [facility] Last Admin: 11/12/16 13:24 Dose: 2.5 mg Metoprolol Succinate (Toprol Xl -) 12.5 mg PO DAILY [facility] Last Admin: 11/13/16 09:26 Dose: 12.5 mg Polyethylene Glycol (Miralax (For Daily Use) -) 17 gm PO DAILY [facility] Last Admin: 11/13/16 09:26 Dose: 17 gm Potassium Chloride (K-Dur -) 40 meq PO BID [facility] Last Admin: 11/13/16 09:26 Dose: 40 meq Ranitidine HCl (Zantac -) 150 mg PO DAILY [facility] Last Admin: 11/13/16 09:26 Dose: 150 mg - Objective Vital Signs: Vital Signs Temperature 97.8 F 11/13/16 05:40 Pulse Rate 78 11/13/16 05:40 Respiratory Rate 20 11/13/16 05:40 Blood Pressure 110/65 11/13/16 05:40 O2 Sat by Pulse Oximetry (%) 98 11/12/16 21:00 Constitutional: Yes: No Distress Cardiovascular: Yes: Regular Rate and Rhythm, Murmur Respiratory: Yes: Diminished Gastrointestinal: Yes: Normal Bowel Sounds, Soft, Distention. No: Tenderness Edema: Yes Edema: LLE: 2+, RLE: 2+ Neurological: Yes: Alert Labs: CBC, BMP 11/13/16 05:35 11/13/16 05:35 INR, PTT INR 1.43 (0.82-1.09) H 11/10/16 05:20 Problem List - Problems (1) CHF (congestive heart failure) Code(s): I50.9 - HEART FAILURE, UNSPECIFIED Qualifiers: Congestive heart failure chronicity: acute on chronic (2) CKD (chronic kidney disease) Code(s): N18.9 - CHRONIC KIDNEY DISEASE, UNSPECIFIED Qualifiers: Chronic kidney disease stage: stage 3 (moderate) Qualified Code(s): N18.3 - Chronic kidney disease, stage 3 (moderate) (3) Anemia Code(s): D64.9 - ANEMIA, UNSPECIFIED Qualifiers: Anemia type: iron deficiency Iron deficiency anemia type: unspecified iron deficiency Qualified Code(s): D50.9 - Iron deficiency anemia, unspecified (4) CHF exacerbation Code(s): I50.9 - HEART FAILURE, UNSPECIFIED (5) COPD (chronic obstructive pulmonary disease) Code(s): J44.9 - CHRONIC OBSTRUCTIVE PULMONARY DISEASE, UNSPECIFIED Assessment/Plan Weight remains somewhat same On Lasix, dose increased yesterday and Zaroxylin started May need therapeutic paracentesis if no improvement, spoke with scout leaser . Daughter agreed continue with meds OOB PT milo
--- NOTE | 2016-11-13 11:46 | PN ---
Progress Note (short form) - Note Progress Note: Chief Complaint: chf History of Present Illness: breathing better no cp, palpit, syncope ex cigs - Current Medication List Active Medications Current Medications Generic Name Dose Route Start Last Admin Trade Name Lindy PRN Reason Stop Dose Admin Acetaminophen 650 mg 11/08/16 17:08 Tylenol - PO Q4H PRN FEVER OR PAIN Allopurinol 100 mg 11/09/16 10:00 11/13/16 09:27 Zyloprim - PO 100 mg DAILY [facility] Administration Ascorbic Acid 500 mg 11/09/16 10:00 11/13/16 09:27 Vitamin C - PO 500 mg DAILY [facility] Administration Atorvastatin Calcium 10 mg 11/08/16 22:00 11/12/16 21:10 Lipitor - PO 10 mg HS [facility] Administration Ferrous Sulfate 325 mg 11/09/16 10:00 11/13/16 09:26 Feosol - PO 325 mg DAILY [facility] Administration Furosemide 100 mg 11/12/16 10:29 11/13/16 05:58 Lasix Injection - IVPUSH 100 mg BID@0600,1400 [facility] Administration Heparin Sodium (Porcine) 5,000 unit 11/10/16 22:00 11/13/16 09:26 Heparin - SQ 5,000 unit BID [facility] Administration Metolazone 2.5 mg 11/12/16 10:30 11/12/16 13:24 Zaroxolyn - PO 2.5 mg DAILY@1330 [facility] Administration Metoprolol Succinate 12.5 mg 11/12/16 12:30 11/13/16 09:26 Toprol Xl - PO 12.5 mg DAILY [facility] Administration Polyethylene Glycol 17 gm 11/09/16 10:00 11/13/16 09:26 Miralax (For Daily Use) - PO 17 gm DAILY [facility] Administration Potassium Chloride 40 meq 11/12/16 22:00 11/13/16 09:26 K-Dur - PO 40 meq BID [facility] Administration Ranitidine HCl 150 mg 11/09/16 10:00 11/13/16 09:26 Zantac - PO 150 mg DAILY [facility] Administration - Objective Vital Signs: Vital Signs Period Temp Pulse Resp BP Sys/Vega Pulse Ox Last 24 Hr 97.2 F-98.1 F 71-91 18-20 91-134/57-75 98-99 Constitutional: Yes: No Distress, Calm Eyes: No: Sclera Icterus HENT: No: Nasal Congestion Cardiovascular: Yes: Regular Rate and Rhythm, JVD (++ EJs), S1, S2, Other (PMI non diplaced). No: Gallop, Murmur Respiratory: Yes: Regular, Diminished (bases). No: Accessory Muscle Use, Rales , Wheezes Gastrointestinal: Yes: Normal Bowel Sounds, Soft. No: Tenderness Musculoskeletal: Yes: Other (No kyphosis) Extremities: No: Cold Edema: Yes (1+ low pretib/ankles) Integumentary: No: Jaundice Neurological: Yes: Alert. No: Seizure Psychiatric: No: Agitated Labs: Laboratory Last Values WBC 6.5 K/mm3 (4.0-10.0) 11/13/16 05:35 RBC 4.27 M/mm3 (4.00-5.60) 11/13/16 05:35 Hgb 9.8 GM/dL (11.7-16.9) L 11/13/16 05:35 Hct 33.3 % (35.4-49) L 11/13/16 05:35 MCV 78.2 fl (80-96) L 11/13/16 05:35 MCH 22.9 pg (25.7-33.7) L 11/13/16 05:35 MCHC 29.3 g/dl (32.0-35.9) L 11/13/16 05:35 RDW 21.7 % (11.9-15.9) H 11/13/16 05:35 Plt Count 210 K/MM3 (134-434) 11/13/16 05:35 MPV 8.5 fl (7.5-11.1) 11/13/16 05:35 Neutrophils % 63.1 % (42.8-82.8) 11/13/16 05:35 Lymphocytes % 19.3 % (8-40) 11/13/16 05:35 Monocytes % 15.7 % (3.8-10.2) H 11/13/16 05:35 Eosinophils % 1.4 % (0-4.5) 11/13/16 05:35 Basophils % 0.5 % (0-2.0) 11/13/16 05:35 Differential Comment Slide scanned 11/10/16 05:20 Platelet Estimate Adequate (NORMAL) 11/11/16 05:50 Platelet Comment No clumping noted 11/11/16 05:50 Polychromasia Few 11/11/16 05:50 Hypochromic-Microcytic 1+ 11/11/16 05:50 Anisocytosis 2+ 11/11/16 05:50 Microcytosis 1+ 11/08/16 12:10 Macrocytosis 1+ 11/08/16 12:10 Morphology Comment Slide scanned 11/10/16 05:20 INR 1.43 (0.82-1.09) H 11/10/16 05:20 Sodium 142 mmol/L (136-145) 11/13/16 05:35 Potassium 3.7 mmol/L (3.5-5.1) 11/13/16 05:35 Chloride 91 mmol/L (98-107) L 11/13/16 05:35 Carbon Dioxide 48 mmol/L (21-32) H 11/13/16 05:35 Anion Gap 3 (8-16) L 11/13/16 05:35 BUN 87 mg/dL (7-18) H 11/13/16 05:35 Creatinine 1.4 mg/dL (0.7-1.3) H 11/13/16 05:35 Creat Clearance w eGFR 49.27 (>60) 11/13/16 05:35 Random Glucose 151 mg/dL (74-106) H D 11/13/16 05:35 Calcium 9.0 mg/dL (8.5-10.1) 11/13/16 05:35 Magnesium 2.6 mg/dL (1.8-2.4) H 11/12/16 05:35 Total Bilirubin 0.9 mg/dL (0.2-1.0) 11/13/16 05:35 AST 23 U/L (15-37) 11/13/16 05:35 ALT 12 U/L (12-78) 11/13/16 05:35 Alkaline Phosphatase 158 U/L (45-117) H 11/13/16 05:35 Creatine Kinase 20 IU/L (39-308) L 11/09/16 05:53 Troponin I 0.14 ng/ml (0.00-0.05) H 11/09/16 05:53 Total Protein 6.5 g/dl (6.4-8.2) 11/13/16 05:35 Albumin 2.0 g/dl (3.4-5.0) L 11/13/16 05:35 - ....Imaging EKG: Other (tele: NSR, V-P/V-S;) cath 2012 all grafts patent (self to lad, svg to lcx, svg to rpda) Echo 07/2016: mod lve, sev reduced LV fn (global). mild rve with mild hypo ( severe TR, intrinsic RV fn likely more depressed), 1+ mr, severe tr, mod phtn, + pl effusion Echo 07/2015: sev lve, sev reduced lvef (global). grade 2 diastolic dysfunction. nl RV. mild connie. dilated ivc. mod mr, mod-sev tr, sev phtn, mild pr. Echo 08/03: sev LVE with severe decr EF; mild RV dil with moderate hypo; mod MR/ TR; RVSP >60 ecg 11/08/16: sr, vpaced, pvc cxr: chf a/p: 76 yo ex smoker, with h/o CAD s/p CABG, ischemic CM with EF 25% s/p BiVICD with secondary severe pulmonary hypertension, prior CVA, HL, copd, CKD, bph, chronic iron deficiency anemia here with chf. isch CMP/acute systolic CHF: -08/2016 admitted here for chf needing milrinone/vasopressin/lasix -despite high doses of diuretic (torsemide 100 bid with metolazone at times) he reaccumulated volume and is now back in chf exacerbation (goal wt 130 lbs, here now at 150) -started lasix 80 iv bid here -wt not accurate, 150 yest, 170 today -given was on equivalent of 200mg po daily lasix at home (i.e. torsemide 100mg) , will double that dose = lasix 100mg iv bid. 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 Continue lasix 80mg BID -11/11: Weight at 169#, Creat stable. remains volume up on exam. Will add metolazone 2.5mg before AM lasix dose. -11/12: renal fxn and wt remained unchanged on lasix 80 IV BID, until metolazone (2.5) given yest--wt down today, renal fxn and lytes stable. cont lasix (incr to 100 iv bid), with metolazone 2.5 qd -11/13: continue current lasix 100 bid with metolazone. If still no sig decrease in wt tomorrow may need to add milrinone. Can also d/w IR about possible paracentesis to help remove volume. -started low dose metopr succinate 12.5 qd here V Tach: - nsvt seen on prior ICD checks and on tele here in past as well. - freq VT on tele here - replete K/Mag aggressively (usual goals) - freq runs, some longish (though non-sustained) - resumed BB, as above CAD s/p h/o CABG 2006 - have been holding ASA, plavix due to anemia. - trop borderline intermediate range and no change x 2, no clinical signs ACS here -cont statin anemia -recent admits for anemia, responded to prbcs and hgb stable. GI w/u deferred then 2/2 chf. He has been off asa and plavix and hgb remains stable. h/o CVA: -was on ASA, plavix --> on hold as above. PAT/PSVT - brief episodes on tele here in past manjinder: -likely cardiorenal syndrome -diuresis plan as above, trend cr
[2016-11-13] MEDS ORDERED: PT OWN MED DRAWER 7, Y5N ONE (13:14)
[2016-11-13] MEDS: METOLAZONE 2.5 MG TABLET (FP) PO SCH (13:16)
[2016-11-13] MEDS: ATORVASTATIN CA 10 MG TABLET (FP) PO SCH (21:23)
[2016-11-14] MEDS: FUROSEMIDE 40 MG/4 ML INJECTABLE VIAL IVPUSH SCH (06:10)
[2016-11-14 09:11] LABS: CALCIUM 8.6 mg/dL (8.5-10.1); CO2 43 mmol/L (21-32); CREATININE 1.8 mg/dL (0.7-1.3); GLUCOSE,RANDOM 139 mg/dL (74-106)
[2016-11-14] MEDS: ASCORBIC ACID 500 MG TABLET (FP) PO SCH (09:15)
[2016-11-14] MEDS: RANITIDINE HCL 150 MG TABLET (FP) PO SCH (09:15)
[2016-11-14] MEDS: POTASSIUM CHLORIDE TABS 20 MEQ TABLET.ER (FP) PO SCH ×2 (09:15→21:46)
[2016-11-14] MEDS: FERROUS SO4 325 MG TABLET (FP) PO SCH (09:15)
[2016-11-14] MEDS: METOPROLOL SUCCINATE 25 MG TAB.SR.24H (FP) PO SCH (09:16)
[2016-11-14] MEDS: POLYETHYLENE GLYCOL 3350 119 GM BTL PO SCH (09:16)
[2016-11-14] MEDS: ALLOPURINOL 100 MG TABLET (FP) PO SCH (09:18)
--- NOTE | 2016-11-14 09:39 | PN ---
Progress Note, Physician Chief Complaint: comfortable BP is low, assymptomatic no distress - Current Medication List Current Medications: Active Medications Acetaminophen (Tylenol -) 650 mg PO Q4H PRN PRN Reason: FEVER OR PAIN Allopurinol (Zyloprim -) 100 mg PO DAILY [facility] Last Admin: 11/14/16 09:18 Dose: 100 mg Ascorbic Acid (Vitamin C -) 500 mg PO DAILY [facility] Last Admin: 11/14/16 09:15 Dose: 500 mg Atorvastatin Calcium (Lipitor -) 10 mg PO HS [facility] Last Admin: 11/13/16 21:23 Dose: 10 mg Ferrous Sulfate (Feosol -) 325 mg PO DAILY [facility] Last Admin: 11/14/16 09:15 Dose: 325 mg Furosemide (Lasix Injection -) 100 mg IVPUSH BID@0600,1400 [facility] Last Admin: 11/14/16 06:10 Dose: Not Given Metolazone (Zaroxolyn -) 2.5 mg PO DAILY@1330 [facility] Last Admin: 11/13/16 13:16 Dose: 2.5 mg Polyethylene Glycol (Miralax (For Daily Use) -) 17 gm PO DAILY [facility] Last Admin: 11/14/16 09:16 Dose: Not Given Potassium Chloride (K-Dur -) 40 meq PO BID [facility] Last Admin: 11/14/16 09:15 Dose: 40 meq Ranitidine HCl (Zantac -) 150 mg PO DAILY [facility] Last Admin: 11/14/16 09:15 Dose: 150 mg - Objective Vital Signs: Vital Signs Temperature 97.7 F 11/14/16 06:00 Pulse Rate 82 11/14/16 06:00 Respiratory Rate 20 11/14/16 06:00 Blood Pressure 82/44 11/14/16 06:00 O2 Sat by Pulse Oximetry (%) 98 11/13/16 21:00 Constitutional: Yes: No Distress, Calm Cardiovascular: Yes: Regular Rate and Rhythm, Murmur Respiratory: Yes: Diminished Gastrointestinal: Yes: Normal Bowel Sounds, Soft, Distention. No: Tenderness Edema: Yes Edema: LLE: 2+, RLE: 2+ Psychiatric: Yes: Alert Labs: CBC, BMP 11/13/16 05:35 11/14/16 05:40 INR, PTT INR 1.43 (0.82-1.09) H 11/10/16 05:20 - ....Imaging Ultrasound: Report Reviewed Problem List - Problems (1) CHF (congestive heart failure) Code(s): I50.9 - HEART FAILURE, UNSPECIFIED Qualifiers: Congestive heart failure chronicity: acute on chronic (2) CKD (chronic kidney disease) Code(s): N18.9 - CHRONIC KIDNEY DISEASE, UNSPECIFIED Qualifiers: Chronic kidney disease stage: stage 3 (moderate) Qualified Code(s): N18.3 - Chronic kidney disease, stage 3 (moderate) (3) Anemia Code(s): D64.9 - ANEMIA, UNSPECIFIED Qualifiers: Anemia type: iron deficiency Iron deficiency anemia type: unspecified iron deficiency Qualified Code(s): D50.9 - Iron deficiency anemia, unspecified (4) CHF exacerbation Code(s): I50.9 - HEART FAILURE, UNSPECIFIED (5) COPD (chronic obstructive pulmonary disease) Code(s): J44.9 - CHRONIC OBSTRUCTIVE PULMONARY DISEASE, UNSPECIFIED Assessment/Plan Weight -- lost about 1 lb On Lasix, creatinine worsened therapeutic paracentesis today Holding Heparin sc Sono abd noted Daughter agreed continue with meds OOB PT eval will give Albumin if large volume of ascitic fluid removed
[2016-11-14 09:49] LABS: ANION GAP 9 (8-16)
[2016-11-14] MEDS ORDERED: FUROSEMIDE 40 MG/4 ML INJECTABLE VIAL IVPUSH SCH (10:15)
--- NOTE | 2016-11-14 11:18 | PN ---
Progress Note (short form) - Note Progress Note: Chief Complaint: chf History of Present Illness: no sob no cp, palpit, syncope ex cigs - Current Medication List Active Medications Current Medications Generic Name Dose Route Start Last Admin Trade Name Lindy PRN Reason Stop Dose Admin Acetaminophen 650 mg 11/08/16 17:08 Tylenol - PO Q4H PRN FEVER OR PAIN Allopurinol 100 mg 11/09/16 10:00 11/14/16 09:18 Zyloprim - PO 100 mg DAILY [facility] Administration Ascorbic Acid 500 mg 11/09/16 10:00 11/14/16 09:15 Vitamin C - PO 500 mg DAILY [facility] Administration Atorvastatin Calcium 10 mg 11/08/16 22:00 11/13/16 21:23 Lipitor - PO 10 mg HS [facility] Administration Ferrous Sulfate 325 mg 11/09/16 10:00 11/14/16 09:15 Feosol - PO 325 mg DAILY [facility] Administration Furosemide 100 mg 11/14/16 11:01 Lasix Injection - IVPUSH BIDLASIX [facility] Metolazone 2.5 mg 11/12/16 10:30 11/13/16 13:16 Zaroxolyn - PO 2.5 mg DAILY@1330 [facility] Administration Polyethylene Glycol 17 gm 11/09/16 10:00 11/14/16 09:16 Miralax (For Daily Use) - PO Not Given DAILY [facility] Potassium Chloride 40 meq 11/12/16 22:00 11/14/16 09:15 K-Dur - PO 40 meq BID [facility] Administration Ranitidine HCl 150 mg 11/09/16 10:00 11/14/16 09:15 Zantac - PO 150 mg DAILY [facility] Administration - Objective Vital Signs: Vital Signs Temp 97.8 F 11/14/16 10:41 Pulse 73 11/14/16 10:41 Resp 20 11/14/16 10:41 BP 90/53 11/14/16 10:41 Pulse Ox 98 11/14/16 09:00 Intake & Output 11/13/16 11/13/16 11/14/16 11:59 23:59 11:59 Intake Total 180 240 250 Output Total 280 900 Balance -100 -660 250 Weight 164 lb 3.2 oz 163 lb 9.6 oz Intake: IV 10 SL 10 Oral 180 240 240 Output: Urine 280 900 Void 280 900 Other: Voiding Method External Catheter External Catheter External Catheter # Unmeasured Voids Void 1 Weight Measurement Method Patient Lift Scale Patient Lift Scale Constitutional: Yes: No Distress, Calm Eyes: No: Sclera Icterus HENT: No: Nasal Congestion Cardiovascular: Yes: Regular Rate and Rhythm, JVD (++ EJs), S1, S2, Other (PMI non diplaced). No: Gallop, Murmur Respiratory: Yes: Regular, Diminished (bases). No: Accessory Muscle Use, Rales , Wheezes Gastrointestinal: Yes: Normal Bowel Sounds, Soft. No: Tenderness Musculoskeletal: Yes: Other (No kyphosis) Extremities: No: Cold Edema: Yes (1+ low pretib/ankles) Integumentary: No: Jaundice Neurological: Yes: Alert. No: Seizure Psychiatric: No: Agitated Labs: Laboratory Last Values WBC 6.5 K/mm3 (4.0-10.0) 11/13/16 05:35 RBC 4.27 M/mm3 (4.00-5.60) 11/13/16 05:35 Hgb 9.8 GM/dL (11.7-16.9) L 11/13/16 05:35 Hct 33.3 % (35.4-49) L 11/13/16 05:35 MCV 78.2 fl (80-96) L 11/13/16 05:35 MCH 22.9 pg (25.7-33.7) L 11/13/16 05:35 MCHC 29.3 g/dl (32.0-35.9) L 11/13/16 05:35 RDW 21.7 % (11.9-15.9) H 11/13/16 05:35 Plt Count 210 K/MM3 (134-434) 11/13/16 05:35 MPV 8.5 fl (7.5-11.1) 11/13/16 05:35 Neutrophils % 63.1 % (42.8-82.8) 11/13/16 05:35 Lymphocytes % 19.3 % (8-40) 11/13/16 05:35 Monocytes % 15.7 % (3.8-10.2) H 11/13/16 05:35 Eosinophils % 1.4 % (0-4.5) 11/13/16 05:35 Basophils % 0.5 % (0-2.0) 11/13/16 05:35 Differential Comment Slide scanned 11/10/16 05:20 Platelet Estimate Adequate (NORMAL) 11/11/16 05:50 Platelet Comment No clumping noted 11/11/16 05:50 Polychromasia Few 11/11/16 05:50 Hypochromic-Microcytic 1+ 11/11/16 05:50 Anisocytosis 2+ 11/11/16 05:50 Microcytosis 1+ 11/08/16 12:10 Macrocytosis 1+ 11/08/16 12:10 Morphology Comment Slide scanned 11/10/16 05:20 INR 1.43 (0.82-1.09) H 11/10/16 05:20 Sodium 141 mmol/L (136-145) 11/14/16 05:40 Potassium 4.4 mmol/L (3.5-5.1) 11/14/16 05:40 Chloride 89 mmol/L (98-107) L 11/14/16 05:40 Carbon Dioxide 43 mmol/L (21-32) H 11/14/16 05:40 Anion Gap 9 (8-16) 11/14/16 05:40 BUN 95 mg/dL (7-18) H 11/14/16 05:40 Creatinine 1.8 mg/dL (0.7-1.3) H D 11/14/16 05:40 Creat Clearance w eGFR 49.27 (>60) 11/13/16 05:35 Random Glucose 139 mg/dL (74-106) H 11/14/16 05:40 Calcium 8.6 mg/dL (8.5-10.1) 11/14/16 05:40 Magnesium 2.6 mg/dL (1.8-2.4) H 11/12/16 05:35 Total Bilirubin 0.9 mg/dL (0.2-1.0) 11/13/16 05:35 AST 23 U/L (15-37) 11/13/16 05:35 ALT 12 U/L (12-78) 11/13/16 05:35 Alkaline Phosphatase 158 U/L (45-117) H 11/13/16 05:35 Creatine Kinase 20 IU/L (39-308) L 11/09/16 05:53 Troponin I 0.14 ng/ml (0.00-0.05) H 11/09/16 05:53 Total Protein 6.5 g/dl (6.4-8.2) 11/13/16 05:35 Albumin 2.0 g/dl (3.4-5.0) L 11/13/16 05:35 - ....Imaging EKG: Other (tele: NSR, V-P/V-S;) cath 2012 all grafts patent (self to lad, svg to lcx, svg to rpda) Echo 07/2016: mod lve, sev reduced LV fn (global). mild rve with mild hypo ( severe TR, intrinsic RV fn likely more depressed), 1+ mr, severe tr, mod phtn, + pl effusion Echo 07/2015: sev lve, sev reduced lvef (global). grade 2 diastolic dysfunction. nl RV. mild connie. dilated ivc. mod mr, mod-sev tr, sev phtn, mild pr. Echo 08/03: sev LVE with severe decr EF; mild RV dil with moderate hypo; mod MR/ TR; RVSP >60 ecg 11/08/16: sr, vpaced, pvc cxr: chf a/p: 76 yo ex smoker, with h/o CAD s/p CABG, ischemic CM with EF 25% s/p BiVICD with secondary severe pulmonary hypertension, prior CVA, HL, copd, CKD, bph, chronic iron deficiency anemia here with chf. isch CMP/acute systolic CHF: -08/2016 admitted here for chf needing milrinone/vasopressin/lasix -despite high doses of diuretic (torsemide 100 bid with metolazone at times) he reaccumulated volume and is now back in chf exacerbation (goal wt 130 lbs, here now at 150) -started lasix 80 iv bid here -wt not accurate, 150 yest, 170 today -given was on equivalent of 200mg po daily lasix at home (i.e. torsemide 100mg) , will double that dose = lasix 100mg iv bid. 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 Continue lasix 80mg BID -11/11: Weight at 169#, Creat stable. remains volume up on exam. Will add metolazone 2.5mg before AM lasix dose. -11/12: renal fxn and wt remained unchanged on lasix 80 IV BID, until metolazone (2.5) given yest--wt down today, renal fxn and lytes stable. cont lasix (incr to 100 iv bid), with metolazone 2.5 qd -11/13: continue current lasix 100 bid with metolazone. If still no sig decrease in wt tomorrow may need to add milrinone. Can also d/w IR about possible paracentesis to help remove volume. -11/14: wt not decreasing much and cr up a bit today. Will have paracentesis today. If wt/cr not improving tomorrow then will start on milrinone. -started low dose metopr succinate 12.5 qd here but bp too low (sbp 80s), so will dc V Tach: - nsvt seen on prior ICD checks and on tele here in past as well. - freq VT on tele here - replete K/Mag aggressively (usual goals) - freq runs, some longish (though non-sustained) - bp too low for bb CAD s/p h/o CABG 2006 - have been holding ASA, plavix due to anemia. - trop borderline intermediate range and no change x 2, no clinical signs ACS here -cont statin anemia -recent admits for anemia, responded to prbcs and hgb stable. GI w/u deferred then 2/2 chf. He has been off asa and plavix and hgb remains stable. h/o CVA: -was on ASA, plavix --> on hold as above. PAT/PSVT - brief episodes on tele here in past manjinder: -likely cardiorenal syndrome -diuresis plan as above, trend cr
[2016-11-14] MEDS: FUROSEMIDE 100 MG/10 ML INJECTABLE VIAL IVPUSH SCH (14:35)
[2016-11-14] MEDS: METOLAZONE 2.5 MG TABLET (FP) PO SCH (14:35)
[2016-11-14 15:01] LABS: PERITONEAL FLUID LYMPHOCYTE 36 %; PERITONEAL FLUID MACROPHAGE 40 %; PERITONEAL FLUID MESOTHELIAL 13 %; PERITONEAL FLUID NEUTROPHIL 11 %
[2016-11-14] MEDS: ATORVASTATIN CA 10 MG TABLET (FP) PO SCH (21:47)
[2016-11-15] MEDS: FUROSEMIDE 100 MG/10 ML INJECTABLE VIAL IVPUSH SCH ×2 (06:28→14:38)
[2016-11-15 09:18] LABS: ANION GAP 7 (8-16); CALCIUM 8.5 mg/dL (8.5-10.1); CO2 44 mmol/L (21-32); CREATININE 1.7 mg/dL (0.7-1.3); GLUCOSE,RANDOM 103 mg/dL (74-106); MAGNESIUM 2.9 mg/dL (1.8-2.4)
--- NOTE | 2016-11-15 09:40 | PN ---
Progress Note, Physician Chief Complaint: comfortable BP is low, assymptomatic no distress s/p paracetesis-- lost about 8 lbs so far daughter at bedside pt looks better - Current Medication List Current Medications: Active Medications Acetaminophen (Tylenol -) 650 mg PO Q4H PRN PRN Reason: FEVER OR PAIN Allopurinol (Zyloprim -) 100 mg PO DAILY [facility] Last Admin: 11/14/16 09:18 Dose: 100 mg Ascorbic Acid (Vitamin C -) 500 mg PO DAILY [facility] Last Admin: 11/14/16 09:15 Dose: 500 mg Atorvastatin Calcium (Lipitor -) 10 mg PO HS [facility] Last Admin: 11/14/16 21:47 Dose: 10 mg Ferrous Sulfate (Feosol -) 325 mg PO DAILY [facility] Last Admin: 11/14/16 09:15 Dose: 325 mg Furosemide (Lasix Injection -) 100 mg IVPUSH BIDLASIX [facility] Last Admin: 11/15/16 06:28 Dose: 100 mg Metolazone (Zaroxolyn -) 2.5 mg PO DAILY@1330 [facility] Last Admin: 11/14/16 14:35 Dose: Not Given Polyethylene Glycol (Miralax (For Daily Use) -) 17 gm PO DAILY [facility] Last Admin: 11/14/16 09:16 Dose: Not Given Potassium Chloride (K-Dur -) 40 meq PO BID [facility] Last Admin: 11/14/16 21:46 Dose: 40 meq Ranitidine HCl (Zantac -) 150 mg PO DAILY [facility] Last Admin: 11/14/16 09:15 Dose: 150 mg - Objective Vital Signs: Vital Signs Temperature 97.9 F 11/15/16 06:18 Pulse Rate 67 11/15/16 06:18 Respiratory Rate 20 11/15/16 06:18 Blood Pressure 98/51 11/15/16 06:18 O2 Sat by Pulse Oximetry (%) 98 11/14/16 20:40 Constitutional: Yes: No Distress, Calm Cardiovascular: Yes: Regular Rate and Rhythm, Murmur Respiratory: Yes: Diminished Gastrointestinal: Yes: Normal Bowel Sounds, Soft, Distention (decreased). No: Tenderness Edema: Yes (decreased) Edema: LLE: 1+, RLE: 1+ Psychiatric: Yes: Alert, Oriented Labs: CBC, BMP 11/13/16 05:35 11/15/16 06:00 INR, PTT INR 1.43 (0.82-1.09) H 11/10/16 05:20 Problem List - Problems (1) CHF (congestive heart failure) Code(s): I50.9 - HEART FAILURE, UNSPECIFIED Qualifiers: Congestive heart failure chronicity: acute on chronic (2) CKD (chronic kidney disease) Code(s): N18.9 - CHRONIC KIDNEY DISEASE, UNSPECIFIED Qualifiers: Chronic kidney disease stage: stage 3 (moderate) Qualified Code(s): N18.3 - Chronic kidney disease, stage 3 (moderate) (3) Anemia Code(s): D64.9 - ANEMIA, UNSPECIFIED Qualifiers: Anemia type: iron deficiency Iron deficiency anemia type: unspecified iron deficiency Qualified Code(s): D50.9 - Iron deficiency anemia, unspecified (4) CHF exacerbation Code(s): I50.9 - HEART FAILURE, UNSPECIFIED (5) COPD (chronic obstructive pulmonary disease) Code(s): J44.9 - CHRONIC OBSTRUCTIVE PULMONARY DISEASE, UNSPECIFIED Assessment/Plan Weight -- lost about 8lbs On Lasix, creatinine better today s/p therapeutic paracentesis continue with meds OOB PT milo Spoke with Cardiology, will diurese pt and once better, will need to transfer to [facility] for rt heart cath and for arrangements for at home Milrinone therapy Daughter aware that he has CHF - severe and chance of recurrent volume overload is greater
[2016-11-15] MEDS: POLYETHYLENE GLYCOL 3350 119 GM BTL PO SCH (09:41)
[2016-11-15] MEDS: FERROUS SO4 325 MG TABLET (FP) PO SCH (09:41)
[2016-11-15] MEDS: RANITIDINE HCL 150 MG TABLET (FP) PO SCH (09:41)
[2016-11-15] MEDS: ASCORBIC ACID 500 MG TABLET (FP) PO SCH (09:41)
[2016-11-15] MEDS: POTASSIUM CHLORIDE TABS 20 MEQ TABLET.ER (FP) PO SCH ×3 (09:41→21:55)
[2016-11-15] MEDS: ALLOPURINOL 100 MG TABLET (FP) PO SCH (09:41)
--- NOTE | 2016-11-15 11:01 | PN ---
Progress Note (short form) - Note Progress Note: Chief Complaint: chf History of Present Illness: no sob no cp, palpit, syncope ex cigs - Current Medication List Active Medications Current Medications Generic Name Dose Route Start Last Admin Trade Name Lindy PRN Reason Stop Dose Admin Acetaminophen 650 mg 11/08/16 17:08 Tylenol - PO Q4H PRN FEVER OR PAIN Allopurinol 100 mg 11/09/16 10:00 11/15/16 09:41 Zyloprim - PO 100 mg DAILY [facility] Administration Ascorbic Acid 500 mg 11/09/16 10:00 11/15/16 09:41 Vitamin C - PO 500 mg DAILY [facility] Administration Atorvastatin Calcium 10 mg 11/08/16 22:00 11/14/16 21:47 Lipitor - PO 10 mg HS [facility] Administration Ferrous Sulfate 325 mg 11/09/16 10:00 11/15/16 09:41 Feosol - PO 325 mg DAILY [facility] Administration Furosemide 100 mg 11/14/16 11:01 11/15/16 06:28 Lasix Injection - IVPUSH 100 mg BIDLASIX [facility] Administration Metolazone 2.5 mg 11/12/16 10:30 11/14/16 14:35 Zaroxolyn - PO Not Given DAILY@1330 [facility] Polyethylene Glycol 17 gm 11/09/16 10:00 11/15/16 09:41 Miralax (For Daily Use) - PO Not Given DAILY [facility] Potassium Chloride 40 meq 11/12/16 22:00 11/15/16 09:41 K-Dur - PO 40 meq BID [facility] Administration Ranitidine HCl 150 mg 11/09/16 10:00 11/15/16 09:41 Zantac - PO 150 mg DAILY [facility] Administration - Objective Vital Signs: Vital Signs Temp 97.9 F 11/15/16 06:18 Pulse 67 11/15/16 06:18 Resp 20 11/15/16 06:18 BP 98/51 11/15/16 06:18 Pulse Ox 98 11/14/16 20:40 Intake & Output 11/14/16 11/14/16 11/15/16 11:59 23:59 11:59 Intake Total 250 370 180 Balance 250 370 180 Weight 163 lb 9.6 oz 155 lb 3.2 oz Intake: IV 10 20 SL 10 20 Oral 240 350 180 Other: Voiding Method External Catheter Incontinent Incontinent # Unmeasured Voids Void 3 2 Bowel Movement Yes # Bowel Movements 1 Weight Measurement Method Patient Lift Scale Patient Lift Scale Constitutional: Yes: No Distress, Calm Eyes: No: Sclera Icterus HENT: No: Nasal Congestion Cardiovascular: Yes: Regular Rate and Rhythm, JVD (++ EJs), S1, S2, Other (PMI non diplaced). No: Gallop, Murmur Respiratory: Yes: Regular, Diminished (bases). No: Accessory Muscle Use, Rales , Wheezes Gastrointestinal: Yes: Normal Bowel Sounds, Soft. No: Tenderness Musculoskeletal: Yes: Other (No kyphosis) Extremities: No: Cold Edema: Yes (1+ low pretib/ankles) Integumentary: No: Jaundice Neurological: Yes: Alert. No: Seizure Psychiatric: No: Agitated Labs: Laboratory Last Values WBC 6.5 K/mm3 (4.0-10.0) 11/13/16 05:35 RBC 4.27 M/mm3 (4.00-5.60) 11/13/16 05:35 Hgb 9.8 GM/dL (11.7-16.9) L 11/13/16 05:35 Hct 33.3 % (35.4-49) L 11/13/16 05:35 MCV 78.2 fl (80-96) L 11/13/16 05:35 MCH 22.9 pg (25.7-33.7) L 11/13/16 05:35 MCHC 29.3 g/dl (32.0-35.9) L 11/13/16 05:35 RDW 21.7 % (11.9-15.9) H 11/13/16 05:35 Plt Count 210 K/MM3 (134-434) 11/13/16 05:35 MPV 8.5 fl (7.5-11.1) 11/13/16 05:35 Neutrophils % 63.1 % (42.8-82.8) 11/13/16 05:35 Lymphocytes % 19.3 % (8-40) 11/13/16 05:35 Monocytes % 15.7 % (3.8-10.2) H 11/13/16 05:35 Eosinophils % 1.4 % (0-4.5) 11/13/16 05:35 Basophils % 0.5 % (0-2.0) 11/13/16 05:35 Differential Comment Slide scanned 11/10/16 05:20 Platelet Estimate Adequate (NORMAL) 11/11/16 05:50 Platelet Comment No clumping noted 11/11/16 05:50 Polychromasia Few 11/11/16 05:50 Hypochromic-Microcytic 1+ 11/11/16 05:50 Anisocytosis 2+ 11/11/16 05:50 Microcytosis 1+ 11/08/16 12:10 Macrocytosis 1+ 11/08/16 12:10 Morphology Comment Slide scanned 11/10/16 05:20 INR 1.43 (0.82-1.09) H 11/10/16 05:20 Sodium 142 mmol/L (136-145) 11/15/16 06:00 Potassium 5.0 mmol/L (3.5-5.1) 11/15/16 06:00 Chloride 91 mmol/L (98-107) L 11/15/16 06:00 Carbon Dioxide 44 mmol/L (21-32) H 11/15/16 06:00 Anion Gap 7 (8-16) L 11/15/16 06:00 BUN 96 mg/dL (7-18) H 11/15/16 06:00 Creatinine 1.7 mg/dL (0.7-1.3) H 11/15/16 06:00 Creat Clearance w eGFR 49.27 (>60) 11/13/16 05:35 Random Glucose 103 mg/dL (74-106) D 11/15/16 06:00 Calcium 8.5 mg/dL (8.5-10.1) 11/15/16 06:00 Magnesium 2.9 mg/dL (1.8-2.4) H 11/15/16 06:00 Total Bilirubin 0.9 mg/dL (0.2-1.0) 11/13/16 05:35 AST 23 U/L (15-37) 11/13/16 05:35 ALT 12 U/L (12-78) 11/13/16 05:35 Alkaline Phosphatase 158 U/L (45-117) H 11/13/16 05:35 Creatine Kinase 20 IU/L (39-308) L 11/09/16 05:53 Troponin I 0.14 ng/ml (0.00-0.05) H 11/09/16 05:53 Total Protein 6.5 g/dl (6.4-8.2) 11/13/16 05:35 Albumin 2.0 g/dl (3.4-5.0) L 11/13/16 05:35 Fluid Amylase 30 11/14/16 12:40 Peritoneal WBC 319 /mm3 11/14/16 12:40 Peritoneal RBC 2,188 /mm3 11/14/16 12:40 Periton Neutrophils 11 % 11/14/16 12:40 Periton Lymphocytes 36 % 11/14/16 12:40 Periton Mesothelial 13 % 11/14/16 12:40 Periton Macrophages 40 % 11/14/16 12:40 Peritoneal Tot Protein 3 gm/dL 11/14/16 12:40 Peritoneal Albumin 1 g/dL 11/14/16 12:40 Peritoneal LDH 74 IU/L 11/14/16 12:40 Peritoneal Glucose 157 mg/dL 11/14/16 12:40 Peritoneal Amylase 30 U/L 11/14/16 12:40 - ....Imaging EKG: Other (tele: NSR, V-P/V-S;) cath 2012 all grafts patent (self to lad, svg to lcx, svg to rpda) Echo 07/2016: mod lve, sev reduced LV fn (global). mild rve with mild hypo ( severe TR, intrinsic RV fn likely more depressed), 1+ mr, severe tr, mod phtn, + pl effusion Echo 07/2015: sev lve, sev reduced lvef (global). grade 2 diastolic dysfunction. nl RV. mild connie. dilated ivc. mod mr, mod-sev tr, sev phtn, mild pr. Echo 08/03: sev LVE with severe decr EF; mild RV dil with moderate hypo; mod MR/ TR; RVSP >60 ecg 11/08/16: sr, vpaced, pvc cxr: chf a/p: 76 yo ex smoker, with h/o CAD s/p CABG, ischemic CM with EF 25% s/p BiVICD with secondary severe pulmonary hypertension, prior CVA, HL, copd, CKD, bph, chronic iron deficiency anemia here with chf. isch CMP/acute systolic CHF: -08/2016 admitted here for chf needing milrinone/vasopressin/lasix -despite high doses of diuretic (torsemide 100 bid with metolazone at times) he reaccumulated volume and is now back in chf exacerbation (goal wt 130 lbs, here now at 150) -started lasix 80 iv bid here -wt not accurate, 150 yest, 170 today -given was on equivalent of 200mg po daily lasix at home (i.e. torsemide 100mg) , will double that dose = lasix 100mg iv bid. -suspect he will need metolazone added on to achieve adequate diuresis-- reassess in am -may need milrinone +/- vasopressin if does not respond to iv lasix alone -not on bb, aceI at home due to prior side effects of hypotension, dizziness-- deferring now given low bp's still -has BiV icd -pt's clinical course and intolerance of CHF meds (bb/reno) suggests he is stage D/end-stage CHF--suggest goals of care be d/w'd family, and home inotropes infusion (palliative) be considered--will defer to dr aparicio pt's outpt oncology research rn -11/10: Weight down to 169#, Cr stable at 1.4. Continue lasix 80mg BID -11/11: Weight at 169#, Creat stable. remains volume up on exam. Will add metolazone 2.5mg before AM lasix dose. -11/12: renal fxn and wt remained unchanged on lasix 80 IV BID, until metolazone (2.5) given yest--wt down today, renal fxn and lytes stable. cont lasix (incr to 100 iv bid), with metolazone 2.5 qd -11/13: continue current lasix 100 bid with metolazone. If still no sig decrease in wt tomorrow may need to add milrinone. Can also d/w IR about possible paracentesis to help remove volume. -11/14: wt not decreasing much and cr up a bit today. Will have paracentesis today. If wt/cr not improving tomorrow then will start on milrinone. -11/15: had large vol paracentesis yesterday, vol down today. Will cont with iv lasix and metolazone for today. If wt/cr not improving tomorrow then will start on milrinone. -started low dose metopr succinate 12.5 qd here but bp too low (sbp 80s), so was stopped -d/w daughter about possible need for home milrinone in fusion, she is agreeable if needed. Will see how does on this admit and decide if he may need eval by chf team at [facility] to set up home milrinone. V Tach: - nsvt seen on prior ICD checks and on tele here in past as well. - replete K/Mag aggressively (usual goals) - freq runs, some longish (though non-sustained) - bp too low for bb CAD s/p h/o CABG 2006 - have been holding ASA, plavix due to anemia. - trop borderline intermediate range and no change x 2, no clinical signs ACS here -cont statin anemia -recent admits for anemia, responded to prbcs and hgb stable. GI w/u deferred then 2/2 chf. He has been off asa and plavix and hgb remains stable. h/o CVA: -was on ASA, plavix --> on hold as above. PAT/PSVT - brief episodes on tele here in past manjinder: -likely cardiorenal syndrome -diuresis plan as above, trend cr
--- NOTE | 2016-11-15 11:51 | EKG ---
Test Reason : Blood Pressure : / mmHG Vent. Rate : 068 BPM Atrial Rate : 068 BPM P-R Int : 122 ms QRS Dur : 162 ms QT Int : 474 ms P-R-T Axes : 037 231 049 degrees QTc Int : 504 ms Atrial-sensed ventricular-paced rhythm WITH FREQUENT AV dual-paced complexes Biventricular pacemaker detected ABNORMAL ECG WHEN COMPARED WITH ECG OF 08-NOV-2016 12:43, PREMATURE VENTRICULAR COMPLEXES ARE NO LONGER PRESENT VENT. RATE HAS DECREASED BY 15 BPM Confirmed by GABY RODRIGUEZ MD ([id number]) on 11/15/2016 11:50:51 AM Referred By: JUNI HANSEN Confirmed By:GABY RODRIGUEZ MD
[2016-11-15] MEDS ORDERED: PT OWN MED DRAWER 7, Y5N ONE (12:43)
[2016-11-15] MEDS: METOLAZONE 2.5 MG TABLET (FP) PO SCH (14:17)
--- NOTE | 2016-11-15 15:18 | PATH ---
Cytology Non-Gynecological Report Patient Name: SANTA CISNEROS [facility]. Rec. #: [id number] /Age/Gender: 1940 (Age: 76) / M Account: [id number] Location: 4 W TELEMETRY U Taken: 11/14/2016 Received: 11/14/2016 Reported: 11/15/2016 Physicians: Branden Bell M.D. Specimen(s) Received A: ABDOMINAL FLUID IN 50% ALCOHOL B: ABDOMINAL FLUID FRESH Clinical History Ascites Final Diagnosis A,B. ABDOMINAL FLUID, PARACENTESIS: SATISFACTORY FOR EVALUATION. NO MALIGNANT CELLS IDENTIFIED. REACTIVE EPITHELIAL CELLS, HISTIOCYTES AND LYMPHOCYTES. Electronically Signed Isreal Stapleton M.D. Gross Description A. Received is a 50 cc of yellow fluid in 50% alcohol. One cytofunnel slide and one cell block are made. B. Received is 4000 cc of yellow fluid fresh. One cytofunnel slide and one cell block are made.
[2016-11-15] MEDS: ATORVASTATIN CA 10 MG TABLET (FP) PO SCH (21:51)
[2016-11-16] MEDS: FUROSEMIDE 100 MG/10 ML INJECTABLE VIAL IVPUSH SCH ×2 (06:35→14:57)
[2016-11-16 08:29] LABS: CALCIUM 8.9 mg/dL (8.5-10.1); GLUCOSE,RANDOM 102 mg/dL (74-106)
[2016-11-16 08:30] LABS: CREATININE 1.9 mg/dL (0.7-1.3)
[2016-11-16 09:09] LABS: ANION GAP 8 (8-16); CO2 44 mmol/L (21-32)
[2016-11-16] MEDS: MILRINONE 20MG/100ML IVPB - 100 ML IVPB SCH ×2 (09:30→20:26)
[2016-11-16] MEDS: FERROUS SO4 325 MG TABLET (FP) PO SCH (09:35)
[2016-11-16] MEDS: ASCORBIC ACID 500 MG TABLET (FP) PO SCH (09:35)
[2016-11-16] MEDS: POTASSIUM CHLORIDE TABS 20 MEQ TABLET.ER (FP) PO SCH ×2 (09:35→21:39)
[2016-11-16] MEDS: ALLOPURINOL 100 MG TABLET (FP) PO SCH (09:36)
[2016-11-16] MEDS: POLYETHYLENE GLYCOL 3350 119 GM BTL PO SCH (09:36)
[2016-11-16] MEDS: RANITIDINE HCL 150 MG TABLET (FP) PO SCH (09:36)
--- NOTE | 2016-11-16 09:44 | PN ---
Progress Note (short form) - Note Progress Note: Chief Complaint: chf History of Present Illness: no sob no cp, palpit, syncope ex cigs - Current Medication List Active Medications Current Medications Generic Name Dose Route Start Last Admin Trade Name Lindy PRN Reason Stop Dose Admin Acetaminophen 650 mg 11/08/16 17:08 Tylenol - PO Q4H PRN FEVER OR PAIN Allopurinol 100 mg 11/09/16 10:00 11/16/16 09:36 Zyloprim - PO 100 mg DAILY [facility] Administration Ascorbic Acid 500 mg 11/09/16 10:00 11/16/16 09:35 Vitamin C - PO 500 mg DAILY [facility] Administration Atorvastatin Calcium 10 mg 11/08/16 22:00 11/15/16 21:51 Lipitor - PO 10 mg HS [facility] Administration Ferrous Sulfate 325 mg 11/09/16 10:00 11/16/16 09:35 Feosol - PO 325 mg DAILY [facility] Administration Furosemide 100 mg 11/14/16 11:01 11/16/16 06:35 Lasix Injection - IVPUSH 100 mg BIDLASIX [facility] Administration Milrinone Lactate/Dextrose 100 mls @ 7.91 mls/hr 11/16/16 08:45 11/16/16 09:30 Milrinone 20mg/100ml Ivpb - IVPB 7.91 mls/hr TITR [facility] Administration 0.375 MCG/KG/MIN Metolazone 2.5 mg 11/12/16 10:30 11/15/16 14:17 Zaroxolyn - PO 2.5 mg DAILY@1330 [facility] Administration Polyethylene Glycol 17 gm 11/09/16 10:00 11/16/16 09:36 Miralax (For Daily Use) - PO 17 gm DAILY [facility] Administration Potassium Chloride 40 meq 11/12/16 22:00 11/16/16 09:35 K-Dur - PO 40 meq BID [facility] Administration Ranitidine HCl 150 mg 11/09/16 10:00 11/16/16 09:36 Zantac - PO 150 mg DAILY [facility] Administration - Objective Vital Signs: Vital Signs Temp 97.8 F 11/16/16 09:00 Pulse 87 11/16/16 09:00 Resp 20 11/16/16 09:00 BP 84/47 11/16/16 09:00 Pulse Ox 96 11/16/16 09:00 Intake & Output 11/15/16 11/15/16 11/16/16 11:59 23:59 11:59 Intake Total 180 600 Balance 180 600 Weight 155 lb 3.2 oz 155 lb Intake: Oral 180 600 Other: Voiding Method Incontinent Incontinent Diaper # Unmeasured Voids Void 2 2 Bowel Movement Yes No Weight Measurement Method Patient Lift Scale Patient Lift Scale Constitutional: Yes: No Distress, Calm Eyes: No: Sclera Icterus HENT: No: Nasal Congestion Cardiovascular: Yes: Regular Rate and Rhythm, JVD (++ EJs), S1, S2, Other (PMI non diplaced). No: Gallop, Murmur Respiratory: Yes: Regular, Diminished (bases). No: Accessory Muscle Use, Rales , Wheezes Gastrointestinal: Yes: Normal Bowel Sounds, Soft. No: Tenderness Musculoskeletal: Yes: Other (No kyphosis) Extremities: No: Cold Edema: Yes (1+ low pretib/ankles) Integumentary: No: Jaundice Neurological: Yes: Alert. No: Seizure Psychiatric: No: Agitated Labs: Laboratory Last Values WBC 6.5 K/mm3 (4.0-10.0) 11/13/16 05:35 RBC 4.27 M/mm3 (4.00-5.60) 11/13/16 05:35 Hgb 9.8 GM/dL (11.7-16.9) L 11/13/16 05:35 Hct 33.3 % (35.4-49) L 11/13/16 05:35 MCV 78.2 fl (80-96) L 11/13/16 05:35 MCH 22.9 pg (25.7-33.7) L 11/13/16 05:35 MCHC 29.3 g/dl (32.0-35.9) L 11/13/16 05:35 RDW 21.7 % (11.9-15.9) H 11/13/16 05:35 Plt Count 210 K/MM3 (134-434) 11/13/16 05:35 MPV 8.5 fl (7.5-11.1) 11/13/16 05:35 Neutrophils % 63.1 % (42.8-82.8) 11/13/16 05:35 Lymphocytes % 19.3 % (8-40) 11/13/16 05:35 Monocytes % 15.7 % (3.8-10.2) H 11/13/16 05:35 Eosinophils % 1.4 % (0-4.5) 11/13/16 05:35 Basophils % 0.5 % (0-2.0) 11/13/16 05:35 Differential Comment Slide scanned 11/10/16 05:20 Platelet Estimate Adequate (NORMAL) 11/11/16 05:50 Platelet Comment No clumping noted 11/11/16 05:50 Polychromasia Few 11/11/16 05:50 Hypochromic-Microcytic 1+ 11/11/16 05:50 Anisocytosis 2+ 11/11/16 05:50 Microcytosis 1+ 11/08/16 12:10 Macrocytosis 1+ 11/08/16 12:10 Morphology Comment Slide scanned 11/10/16 05:20 INR 1.43 (0.82-1.09) H 11/10/16 05:20 Sodium 143 mmol/L (136-145) 11/16/16 05:35 Potassium 4.3 mmol/L (3.5-5.1) 11/16/16 05:35 Chloride 91 mmol/L (98-107) L 11/16/16 05:35 Carbon Dioxide 44 mmol/L (21-32) H 11/16/16 05:35 Anion Gap 8 (8-16) 11/16/16 05:35 BUN 99 mg/dL (7-18) H 11/16/16 05:35 Creatinine 1.9 mg/dL (0.7-1.3) H 11/16/16 05:35 Creat Clearance w eGFR 49.27 (>60) 11/13/16 05:35 Random Glucose 102 mg/dL (74-106) 11/16/16 05:35 Calcium 8.9 mg/dL (8.5-10.1) 11/16/16 05:35 Magnesium 2.9 mg/dL (1.8-2.4) H 11/15/16 06:00 Total Bilirubin 0.9 mg/dL (0.2-1.0) 11/13/16 05:35 AST 23 U/L (15-37) 11/13/16 05:35 ALT 12 U/L (12-78) 11/13/16 05:35 Alkaline Phosphatase 158 U/L (45-117) H 11/13/16 05:35 Creatine Kinase 20 IU/L (39-308) L 11/09/16 05:53 Troponin I 0.14 ng/ml (0.00-0.05) H 11/09/16 05:53 Total Protein 6.5 g/dl (6.4-8.2) 11/13/16 05:35 Albumin 2.0 g/dl (3.4-5.0) L 11/13/16 05:35 Fluid Amylase 30 11/14/16 12:40 Peritoneal WBC 319 /mm3 11/14/16 12:40 Peritoneal RBC 2,188 /mm3 11/14/16 12:40 Periton Neutrophils 11 % 11/14/16 12:40 Periton Lymphocytes 36 % 11/14/16 12:40 Periton Mesothelial 13 % 11/14/16 12:40 Periton Macrophages 40 % 11/14/16 12:40 Peritoneal Tot Protein 3 gm/dL 11/14/16 12:40 Peritoneal Albumin 1 g/dL 11/14/16 12:40 Peritoneal LDH 74 IU/L 11/14/16 12:40 Peritoneal Glucose 157 mg/dL 11/14/16 12:40 Peritoneal Amylase 30 U/L 11/14/16 12:40 - ....Imaging EKG: Other (tele: NSR, V-P/V-S; brief nsvt) cath 2012 all grafts patent (self to lad, svg to lcx, svg to rpda) Echo 07/2016: mod lve, sev reduced LV fn (global). mild rve with mild hypo ( severe TR, intrinsic RV fn likely more depressed), 1+ mr, severe tr, mod phtn, + pl effusion Echo 07/2015: sev lve, sev reduced lvef (global). grade 2 diastolic dysfunction. nl RV. mild connie. dilated ivc. mod mr, mod-sev tr, sev phtn, mild pr. Echo 08/03: sev LVE with severe decr EF; mild RV dil with moderate hypo; mod MR/ TR; RVSP >60 ecg 11/08/16: sr, vpaced, pvc cxr: chf a/p: 76 yo ex smoker, with h/o CAD s/p CABG, ischemic CM with EF 25% s/p BiVICD with secondary severe pulmonary hypertension, prior CVA, HL, copd, CKD, bph, chronic iron deficiency anemia here with chf. isch CMP/acute systolic CHF: -08/2016 admitted here for chf needing milrinone/vasopressin/lasix -despite high doses of diuretic (torsemide 100 bid with metolazone at times) he reaccumulated volume and is now back in chf exacerbation (goal wt 130 lbs, here now at 150) -started lasix 80 iv bid here -wt not accurate, 150 yest, 170 today -given was on equivalent of 200mg po daily lasix at home (i.e. torsemide 100mg) , will double that dose = lasix 100mg iv bid. 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 Continue lasix 80mg BID -11/11: Weight at 169#, Creat stable. remains volume up on exam. Will add metolazone 2.5mg before AM lasix dose. -11/12: renal fxn and wt remained unchanged on lasix 80 IV BID, until metolazone (2.5) given yest--wt down today, renal fxn and lytes stable. cont lasix (incr to 100 iv bid), with metolazone 2.5 qd -11/13: continue current lasix 100 bid with metolazone. If still no sig decrease in wt tomorrow may need to add milrinone. Can also d/w IR about possible paracentesis to help remove volume. -11/14: wt not decreasing much and cr up a bit today. Will have paracentesis today. If wt/cr not improving tomorrow then will start on milrinone. -11/15: had large vol paracentesis yesterday, vol down today. Will cont with iv lasix and metolazone for today. If wt/cr not improving tomorrow then will start on milrinone. -11/16: since paracentesis has not been losing any more wt and still vol up with rising cr as well. Will now start milrinone in addition to current lasix iv/ metolazone. If bp too low with milrinone may need vasopressin as well. -started low dose metopr succinate 12.5 qd here but bp too low (sbp 80s), so was stopped -d/w daughter about possible need for home milrinone in fusion, she is agreeable if needed. Will see how does on this admit and decide if he may need eval by chf team at [facility] to set up home milrinone. V Tach: - nsvt seen on prior ICD checks and on tele here in past as well. - replete K/Mag aggressively (usual goals) - freq runs, some longish (though non-sustained) - bp too low for bb CAD s/p h/o CABG 2006 - have been holding ASA, plavix due to anemia. - trop borderline intermediate range and no change x 2, no clinical signs ACS here -cont statin anemia -recent admits for anemia, responded to prbcs and hgb stable. GI w/u deferred then 2/2 chf. He has been off asa and plavix and hgb remains stable. h/o CVA: -was on ASA, plavix --> on hold as above. PAT/PSVT - brief episodes on tele here in past manjinder: -likely cardiorenal syndrome -diuresis plan as above, trend cr
--- NOTE | 2016-11-16 12:25 | PN ---
Progress Note (short form) - Note Progress Note: Pt seen/ examined chart reviewed events noted pt feels better s/p paracentesis. on Milrinone drip daughter at bedside Vital Signs Temp 97.8 F 11/16/16 09:00 Pulse 87 11/16/16 09:00 Resp 20 11/16/16 09:00 BP 84/47 11/16/16 09:00 Pulse Ox 96 11/16/16 09:00 Intake & Output 11/15/16 11/16/16 11/16/16 23:59 11:59 23:59 Intake Total 600 Balance 600 Weight 155 lb Intake: Oral 600 Other: Voiding Method Incontinent Diaper # Unmeasured Voids Void 2 Bowel Movement Yes No Weight Measurement Method Patient Lift Scale Active Medications Acetaminophen (Tylenol -) 650 mg PO Q4H PRN PRN Reason: FEVER OR PAIN Allopurinol (Zyloprim -) 100 mg PO DAILY [facility] Last Admin: 11/16/16 09:36 Dose: 100 mg Ascorbic Acid (Vitamin C -) 500 mg PO DAILY [facility] Last Admin: 11/16/16 09:35 Dose: 500 mg Atorvastatin Calcium (Lipitor -) 10 mg PO HS [facility] Last Admin: 11/15/16 21:51 Dose: 10 mg Ferrous Sulfate (Feosol -) 325 mg PO DAILY [facility] Last Admin: 11/16/16 09:35 Dose: 325 mg Furosemide (Lasix Injection -) 100 mg IVPUSH BIDLASIX [facility] Last Admin: 11/16/16 06:35 Dose: 100 mg Milrinone Lactate/Dextrose (Milrinone 20mg/100ml Ivpb -) 100 mls @ 7.91 mls/hr IVPB TITR [facility] PRN Reason: 0.375 MCG/KG/MIN Last Admin: 11/16/16 09:30 Dose: 7.91 mls/hr Metolazone (Zaroxolyn -) 2.5 mg PO DAILY@1330 [facility] Last Admin: 11/15/16 14:17 Dose: 2.5 mg Polyethylene Glycol (Miralax (For Daily Use) -) 17 gm PO DAILY [facility] Last Admin: 11/16/16 09:36 Dose: 17 gm Potassium Chloride (K-Dur -) 40 meq PO BID [facility] Last Admin: 11/16/16 09:35 Dose: 40 meq Ranitidine HCl (Zantac -) 150 mg PO DAILY [facility] Last Admin: 11/16/16 09:36 Dose: 150 mg CBC, BMP 11/13/16 05:35 11/16/16 05:35 Physical Exam Constitutional: Yes: No Distress, Comfortable Cardiovascular: Yes: Regular Rate and Rhythm, Murmur Respiratory: Yes: Diminished Gastrointestinal: Yes: Normal Bowel Sounds, Soft, Distention (decreased). No: Tenderness Edema: Yes (decreased) Edema: LLE: 1+, RLE: 1+ Psychiatric: Yes: Alert, Oriented Problem List - Problems (1) CHF (congestive heart failure) Code(s): I50.9 - HEART FAILURE, UNSPECIFIED Qualifiers: Congestive heart failure chronicity: acute on chronic (2) CKD (chronic kidney disease) Code(s): N18.9 - CHRONIC KIDNEY DISEASE, UNSPECIFIED Qualifiers: Chronic kidney disease stage: stage 3 (moderate) Qualified Code(s): N18.3 - Chronic kidney disease, stage 3 (moderate) (3) Anemia Code(s): D64.9 - ANEMIA, UNSPECIFIED Qualifiers: Anemia type: iron deficiency Iron deficiency anemia type: unspecified iron deficiency Qualified Code(s): D50.9 - Iron deficiency anemia, unspecified (4) CHF exacerbation Code(s): I50.9 - HEART FAILURE, UNSPECIFIED (5) COPD (chronic obstructive pulmonary disease) Code(s): J44.9 - CHRONIC OBSTRUCTIVE PULMONARY DISEASE, UNSPECIFIED Assessment/Plan clinically better end stage heart disease prognosis remains poor. discussed with pts daughter who is at bedside I also discussed with Dr. Alston , augustine jasso pt and once better, will need to transfer to [facility] for rt heart cath and for arrangements for at home Milrinone therapy currently started here monitor cbc/ lytes will follow monitor tele Problem List - Problems (1) Anemia Code(s): D64.9 - ANEMIA, UNSPECIFIED Qualifiers: Anemia type: iron deficiency Iron deficiency anemia type: unspecified iron deficiency Qualified Code(s): D50.9 - Iron deficiency anemia, unspecified (2) CHF exacerbation Code(s): I50.9 - HEART FAILURE, UNSPECIFIED (3) Pacemaker Code(s): Z95.0 - PRESENCE OF CARDIAC PACEMAKER (4) Ascites Code(s): R18.8 - OTHER ASCITES
[2016-11-16] MEDS ORDERED: PT OWN MED DRAWER 7, Y5N ONE (13:38)
[2016-11-16] MEDS: METOLAZONE 2.5 MG TABLET (FP) PO SCH (13:40)
[2016-11-16] MEDS: ATORVASTATIN CA 10 MG TABLET (FP) PO SCH (21:39)
[2016-11-17] MEDS: FUROSEMIDE 100 MG/10 ML INJECTABLE VIAL IVPUSH SCH ×2 (06:19→14:43)
[2016-11-17 07:24] LABS: BASOPHIL 0.7 % (0-2.0); MCH 22.9 pg (25.7-33.7); MCHC 29.3 g/dl (32.0-35.9); MEAN CELL VOLUME 78.3 fl (80-96); MEAN PLT VOLUME 8.7 fl (7.5-11.1); NEUTROPHILS 71.4 % (42.8-82.8); PLATELET COUNT 183 K/MM3 (134-434); RDW 22.3 % (11.9-15.9); WHITE BLOOD COUNT 9.6 K/mm3 (4.0-10.0)
[2016-11-17 08:02] LABS: ANION GAP 8 (8-16); CALCIUM 8.6 mg/dL (8.5-10.1); CO2 44 mmol/L (21-32)
[2016-11-17 08:06] LABS: ALK PHOS 164 U/L (45-117); BILIRUBIN,TOTAL 1.1 mg/dL (0.2-1.0); CREATININE 2.1 mg/dL (0.7-1.3); GLUCOSE,RANDOM 123 mg/dL (74-106); SGOT/AST 33 U/L (15-37); SGPT/ALT 16 U/L (12-78); TOT PROT 6.2 g/dl (6.4-8.2)
--- NOTE | 2016-11-17 08:31 | PN ---
Progress Note, Physician Chief Complaint: chf History of Present Illness: very sleepy; opens his eyes but does not want to talk or be examined. appears very comfortable ex cigs - Current Medication List Current Medications: Active Medications Acetaminophen (Tylenol -) 650 mg PO Q4H PRN PRN Reason: FEVER OR PAIN Allopurinol (Zyloprim -) 100 mg PO DAILY [facility] Last Admin: 11/16/16 09:36 Dose: 100 mg Ascorbic Acid (Vitamin C -) 500 mg PO DAILY [facility] Last Admin: 11/16/16 09:35 Dose: 500 mg Atorvastatin Calcium (Lipitor -) 10 mg PO HS [facility] Last Admin: 11/16/16 21:39 Dose: 10 mg Ferrous Sulfate (Feosol -) 325 mg PO DAILY [facility] Last Admin: 11/16/16 09:35 Dose: 325 mg Furosemide (Lasix Injection -) 100 mg IVPUSH BIDLASIX [facility] Last Admin: 11/17/16 06:19 Dose: 100 mg Milrinone Lactate/Dextrose (Milrinone 20mg/100ml Ivpb -) 100 mls @ 7.91 mls/hr IVPB TITR [facility] PRN Reason: 0.375 MCG/KG/MIN Last Titration: 11/17/16 07:00 Dose: 0.375 mcg/kg/min Metolazone (Zaroxolyn -) 2.5 mg PO DAILY@1330 [facility] Last Admin: 11/16/16 13:40 Dose: 2.5 mg Polyethylene Glycol (Miralax (For Daily Use) -) 17 gm PO DAILY [facility] Last Admin: 11/16/16 09:36 Dose: 17 gm Potassium Chloride (K-Dur -) 40 meq PO BID [facility] Last Admin: 11/16/16 21:39 Dose: 40 meq Ranitidine HCl (Zantac -) 150 mg PO DAILY [facility] Last Admin: 11/16/16 09:36 Dose: 150 mg - Objective Vital Signs: Vital Signs Temperature 98.9 F 11/17/16 07:02 Pulse Rate 92 H 11/17/16 07:02 Respiratory Rate 18 11/17/16 07:02 Blood Pressure 93/54 11/17/16 07:02 O2 Sat by Pulse Oximetry (%) 90 L 11/17/16 07:02 Constitutional: Yes: No Distress, Calm Eyes: No: Sclera Icterus HENT: No: Nasal Congestion Cardiovascular: Yes: Regular Rate and Rhythm, JVD (8cm), S1, S2, Other (PMI non diplaced). No: Gallop, Murmur Respiratory: Yes: CTA Bilaterally. No: Accessory Muscle Use, Rales, Wheezes Gastrointestinal: Yes: Normal Bowel Sounds, Soft. No: Tenderness Musculoskeletal: Yes: Other (No kyphosis) Extremities: No: Cold Edema: No Integumentary: No: Jaundice Neurological: Yes: Alert. 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 mild rve with mild hypo ( severe TR, intrinsic RV fn likely more depressed), 1+ mr, severe tr, mod phtn, + pl effusion Echo 07/2015: sev lve, sev reduced lvef (global). grade 2 diastolic dysfunction. nl RV. mild connie. dilated ivc. mod mr, mod-sev tr, sev phtn, mild pr. Echo 08/03: sev LVE with severe decr EF; mild RV dil with moderate hypo; mod MR/ TR; RVSP >60 ecg 11/08/16: sr, vpaced, pvc cxr: chf a/p: 76 yo ex smoker, with h/o CAD s/p CABG, ischemic CM with EF 25% s/p BiVICD with secondary severe pulmonary hypertension, prior CVA, HL, copd, CKD, bph, chronic iron deficiency anemia here with chf. isch CMP/acute systolic CHF: -08/2016 admitted here for chf needing milrinone/vasopressin/lasix -despite high doses of diuretic (torsemide 100 bid with metolazone at times) he reaccumulated volume and is now back in chf exacerbation (goal wt 130 lbs, here now at 150) -started lasix 80 iv bid here -wt not accurate, 150 yest, 170 today -given was on equivalent of 200mg po daily lasix at home (i.e. torsemide 100mg) , will double that dose = lasix 100mg iv bid. 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 Continue lasix 80mg BID -11/11: Weight at 169#, Creat stable. remains volume up on exam. Will add metolazone 2.5mg before AM lasix dose. -11/12: renal fxn and wt remained unchanged on lasix 80 IV BID, until metolazone (2.5) given yest--wt down today, renal fxn and lytes stable. cont lasix (incr to 100 iv bid), with metolazone 2.5 qd -11/13: continue current lasix 100 bid with metolazone. If still no sig decrease in wt tomorrow may need to add milrinone. Can also d/w IR about possible paracentesis to help remove volume. -11/14: wt not decreasing much and cr up a bit today. Will have paracentesis today. If wt/cr not improving tomorrow then will start on milrinone. -11/15: had large vol paracentesis yesterday, vol down today. Will cont with iv lasix and metolazone for today. If wt/cr not improving tomorrow then will start on milrinone. -11/16: no further wt decline since paracentesis, remains vol up with rising cr as well. Will now start milrinone in addition to current lasix iv/metolazone. If bp too low with milrinone may need vasopressin as well. -11/17: on milrinone gtt 0.375; wt down 2 lbs, bun down but creat up slightly. JVD signif improved vs previous, though remains elevated. very frequent NSVT runs on tele. given pt's age and GFR 30s, will reduce milrinone to 0.25mcg/kg/ min. cont lasix 100 iv bid and metolazone 2.5. rpt CXR in am--hope to see effusions signif improving -hypotensive with low dose metopr succinate 12.5 qd here--med d/c'd -d/w daughter about possible need for home milrinone in fusion, she is agreeable if needed. Will see how does on this admit and decide if he may need eval [facility] to [facility] home milrinone. V Tach: - nsvt seen on prior ICD checks and on tele here in past as well. - replete K/Mag aggressively (usual goals) - freq runs, some longish (though non-sustained) - bp too low for bb CAD s/p h/o CABG 2006 - have been holding ASA, plavix due to anemia. - trop borderline intermediate range and no change x 2, no clinical signs ACS here -cont statin anemia -recent admits for anemia, responded to prbcs and hgb stable. GI w/u deferred then 2/2 chf. He has been off asa and plavix and hgb remains stable. h/o CVA: -was on ASA, plavix --> on hold as above. PAT/PSVT - brief episodes on tele here in past manjinder: -likely cardiorenal syndrome -diuresis plan as above, trend cr
[2016-11-17 09:27] LABS: ANISOCYTOSIS 3+; MICROCYTOSIS 1+
[2016-11-17 09:28] LABS: HYPOCHROMIA 2+; TARGET CELLS 2+
--- NOTE | 2016-11-17 10:05 | PN ---
Progress Note, Physician Chief Complaint: No complaints pt appears comfortable No SOB has lost 2 pounds now - Current Medication List Current Medications: Active Medications Acetaminophen (Tylenol -) 650 mg PO Q4H PRN PRN Reason: FEVER OR PAIN Allopurinol (Zyloprim -) 100 mg PO DAILY [facility] Last Admin: 11/16/16 09:36 Dose: 100 mg Ascorbic Acid (Vitamin C -) 500 mg PO DAILY [facility] Last Admin: 11/16/16 09:35 Dose: 500 mg Atorvastatin Calcium (Lipitor -) 10 mg PO HS [facility] Last Admin: 11/16/16 21:39 Dose: 10 mg Ferrous Sulfate (Feosol -) 325 mg PO DAILY [facility] Last Admin: 11/16/16 09:35 Dose: 325 mg Furosemide (Lasix Injection -) 100 mg IVPUSH BIDLASIX [facility] Last Admin: 11/17/16 06:19 Dose: 100 mg Milrinone Lactate/Dextrose (Milrinone 20mg/100ml Ivpb -) 100 mls @ 7.91 mls/hr IVPB TITR [facility] PRN Reason: 0.375 MCG/KG/MIN Last Titration: 11/17/16 07:00 Dose: 0.375 mcg/kg/min Metolazone (Zaroxolyn -) 2.5 mg PO DAILY@1330 [facility] Last Admin: 11/16/16 13:40 Dose: 2.5 mg Polyethylene Glycol (Miralax (For Daily Use) -) 17 gm PO DAILY [facility] Last Admin: 11/16/16 09:36 Dose: 17 gm Potassium Chloride (K-Dur -) 40 meq PO BID [facility] Last Admin: 11/16/16 21:39 Dose: 40 meq Ranitidine HCl (Zantac -) 150 mg PO DAILY [facility] Last Admin: 11/16/16 09:36 Dose: 150 mg - Objective Vital Signs: Vital Signs Temperature 98.9 F 11/17/16 07:02 Pulse Rate 92 H 11/17/16 07:02 Respiratory Rate 18 11/17/16 07:02 Blood Pressure 93/54 11/17/16 07:02 O2 Sat by Pulse Oximetry (%) 90 L 11/17/16 07:02 Constitutional: Yes: No Distress, Calm Cardiovascular: Yes: Regular Rate and Rhythm, Murmur Respiratory: Yes: Diminished Gastrointestinal: Yes: Normal Bowel Sounds, Soft, Distention. No: Tenderness Edema: Yes Edema: LLE: Trace, RLE: Trace Psychiatric: Yes: Alert, Oriented Labs: CBC, BMP 11/17/16 05:35 11/17/16 05:35 INR, PTT INR 1.43 (0.82-1.09) H 11/10/16 05:20 Problem List - Problems (1) CHF (congestive heart failure) Code(s): I50.9 - HEART FAILURE, UNSPECIFIED Qualifiers: Congestive heart failure chronicity: acute on chronic (2) CKD (chronic kidney disease) Code(s): N18.9 - CHRONIC KIDNEY DISEASE, UNSPECIFIED Qualifiers: Chronic kidney disease stage: stage 3 (moderate) Qualified Code(s): N18.3 - Chronic kidney disease, stage 3 (moderate) (3) Anemia Code(s): D64.9 - ANEMIA, UNSPECIFIED Qualifiers: Anemia type: iron deficiency Iron deficiency anemia type: unspecified iron deficiency Qualified Code(s): D50.9 - Iron deficiency anemia, unspecified (4) CHF exacerbation Code(s): I50.9 - HEART FAILURE, UNSPECIFIED (5) COPD (chronic obstructive pulmonary disease) Code(s): J44.9 - CHRONIC OBSTRUCTIVE PULMONARY DISEASE, UNSPECIFIED Assessment/Plan Weight -- lost about 2lbs more On Lasix, creatinine slight.y worsening spoke with Cardiology-- will continue with current dose of Lasix On Milrinone drip s/p therapeutic paracentesis continue with meds OOB PT eval
[2016-11-17] MEDS ORDERED: MILRINONE 20MG/100ML IVPB - 100 ML IVPB SCH (10:10)
[2016-11-17] MEDS: ASCORBIC ACID 500 MG TABLET (FP) PO SCH (10:44)
[2016-11-17] MEDS: POTASSIUM CHLORIDE TABS 20 MEQ TABLET.ER (FP) PO SCH ×2 (10:44→21:49)
[2016-11-17] MEDS: ALLOPURINOL 100 MG TABLET (FP) PO SCH (10:44)
[2016-11-17] MEDS: FERROUS SO4 325 MG TABLET (FP) PO SCH (10:44)
[2016-11-17] MEDS: RANITIDINE HCL 150 MG TABLET (FP) PO SCH (10:44)
[2016-11-17] MEDS: POLYETHYLENE GLYCOL 3350 119 GM BTL PO SCH (10:45)
[2016-11-17] MEDS: MILRINONE 20MG/100ML IVPB - 100 ML IVPB SCH (10:46)
[2016-11-17] MEDS ORDERED: PT OWN MED DRAWER 7, Y5N ONE (14:00)
[2016-11-17] MEDS: METOLAZONE 2.5 MG TABLET (FP) PO SCH (14:09)
[2016-11-17] MEDS: ATORVASTATIN CA 10 MG TABLET (FP) PO SCH (21:49)
[2016-11-18] MEDS ORDERED: morphine CARPU-JECT 2 MG/1 ML DISP.SYRIN IVPUSH PRN (00:52)
[2016-11-18] MEDS ORDERED: morphine CARPU-JECT 2 MG/1 ML DISP.SYRIN ONE (01:01)
[2016-11-18] MEDS: MILRINONE 20MG/100ML IVPB - 100 ML IVPB SCH ×2 (04:45→13:48)
[2016-11-18] MEDS: FUROSEMIDE 100 MG/10 ML INJECTABLE VIAL IVPUSH SCH ×2 (06:21→14:20)
[2016-11-18 08:00] LABS: MCH 22.8 pg (25.7-33.7); MCHC 28.9 g/dl (32.0-35.9); MEAN CELL VOLUME 78.8 fl (80-96); MEAN PLT VOLUME 8.6 fl (7.5-11.1); PLATELET COUNT 193 K/MM3 (134-434); RDW 22.4 % (11.9-15.9); WHITE BLOOD COUNT 13.2 K/mm3 (4.0-10.0)
[2016-11-18 08:36] LABS: CALCIUM 8.5 mg/dL (8.5-10.1); CREATININE 1.8 mg/dL (0.7-1.3); GLUCOSE,RANDOM 118 mg/dL (74-106); MAGNESIUM 2.6 mg/dL (1.8-2.4)
--- NOTE | 2016-11-18 08:55 | PN ---
Progress Note, Physician Chief Complaint: very SOB last night , was placed on BIPAP-- O2 sat became 97% He is now off BIPAP and on 3 liters O2-- 91% Denies any complaints pt usually says he feels fine But does look weak and tired coughing afebrile - Current Medication List Current Medications: Active Medications Acetaminophen (Tylenol -) 650 mg PO Q4H PRN PRN Reason: FEVER OR PAIN Allopurinol (Zyloprim -) 100 mg PO DAILY [facility] Last Admin: 11/17/16 10:44 Dose: 100 mg Ascorbic Acid (Vitamin C -) 500 mg PO DAILY [facility] Last Admin: 11/17/16 10:44 Dose: 500 mg Atorvastatin Calcium (Lipitor -) 10 mg PO HS [facility] Last Admin: 11/17/16 21:49 Dose: 10 mg Ferrous Sulfate (Feosol -) 325 mg PO DAILY [facility] Last Admin: 11/17/16 10:44 Dose: 325 mg Furosemide (Lasix Injection -) 100 mg IVPUSH BIDLASIX [facility] Last Admin: 11/18/16 06:21 Dose: 100 mg Milrinone Lactate/Dextrose (Milrinone 20mg/100ml Ivpb -) 100 mls @ 5.222 mls/ hr IVPB TITR [facility] PRN Reason: 0.25 MCG/KG/MIN Last Admin: 11/18/16 04:45 Dose: 5.222 mls/hr Metolazone (Zaroxolyn -) 2.5 mg PO DAILY@1330 [facility] Last Admin: 11/17/16 14:09 Dose: 2.5 mg Morphine Sulfate (Morphine Injection -) 2 mg IVPUSH Q4H PRN PRN Reason: SHORTNESS OF BREATH Last Admin: 11/18/16 01:02 Dose: 2 mg Polyethylene Glycol (Miralax (For Daily Use) -) 17 gm PO DAILY [facility] Last Admin: 11/17/16 10:45 Dose: 17 gm Potassium Chloride (K-Dur -) 40 meq PO BID [facility] Last Admin: 11/17/16 21:49 Dose: 40 meq Ranitidine HCl (Zantac -) 150 mg PO DAILY [facility] Last Admin: 11/17/16 10:44 Dose: 150 mg - Objective Vital Signs: Vital Signs Temperature 97.8 F 11/18/16 06:00 Pulse Rate 97 H 11/18/16 06:00 Respiratory Rate 17 11/18/17 06:00 Blood Pressure 104/56 11/18/16 06:00 O2 Sat by Pulse Oximetry (%) 98 11/18/16 06:20 Constitutional: Yes: Mild Distress Cardiovascular: Yes: Regular Rate and Rhythm, Murmur Respiratory: Yes: Cough, Rales. No: Rhonchi Gastrointestinal: Yes: Normal Bowel Sounds, Soft. No: Distention, Tenderness Edema: No Labs: CBC, BMP 11/18/16 05:35 11/18/16 05:35 INR, PTT INR 1.43 (0.82-1.09) H 11/10/16 05:20 Problem List - Problems (1) CHF (congestive heart failure) Code(s): I50.9 - HEART FAILURE, UNSPECIFIED Qualifiers: Congestive heart failure chronicity: acute on chronic (2) CKD (chronic kidney disease) Code(s): N18.9 - CHRONIC KIDNEY DISEASE, UNSPECIFIED Qualifiers: Chronic kidney disease stage: stage 3 (moderate) Qualified Code(s): N18.3 - Chronic kidney disease, stage 3 (moderate) (3) Anemia Code(s): D64.9 - ANEMIA, UNSPECIFIED Qualifiers: Anemia type: iron deficiency Iron deficiency anemia type: unspecified iron deficiency Qualified Code(s): D50.9 - Iron deficiency anemia, unspecified (4) CHF exacerbation Code(s): I50.9 - HEART FAILURE, UNSPECIFIED (5) COPD (chronic obstructive pulmonary disease) Code(s): J44.9 - CHRONIC OBSTRUCTIVE PULMONARY DISEASE, UNSPECIFIED Assessment/Plan Weight -- lost about 3lbs more On Lasix, creatinine better BIPAP as needed Afebrile On Milrinone drip CXR-- decreased congestion noted elevated WBC -- maybe reactive leucocytosis due to SOB last night , will monitor s/p therapeutic paracentesis Called daughter-- no answer continue with meds OOB PT eval Pt is DNR/DNI Prognosis guarded
[2016-11-18] MEDS ORDERED: PT OWN MED DRAWER 7, Y5N ONE ×2 (09:01→13:46)
[2016-11-18] MEDS: ALLOPURINOL 100 MG TABLET (FP) PO SCH (09:12)
[2016-11-18] MEDS: RANITIDINE HCL 150 MG TABLET (FP) PO SCH (09:12)
[2016-11-18] MEDS: ASCORBIC ACID 500 MG TABLET (FP) PO SCH (09:12)
[2016-11-18] MEDS: POLYETHYLENE GLYCOL 3350 119 GM BTL PO SCH (09:12)
[2016-11-18] MEDS: FERROUS SO4 325 MG TABLET (FP) PO SCH (09:12)
[2016-11-18] MEDS: POTASSIUM CHLORIDE TABS 20 MEQ TABLET.ER (FP) PO SCH ×2 (09:12→21:48)
[2016-11-18 09:15] LABS: ANION GAP 5 (8-16); CO2 48 mmol/L (21-32)
--- NOTE | 2016-11-18 11:10 | PN ---
Progress Note (short form) - Note Progress Note: Chief Complaint: chf History of Present Illness: no sob no cp, palpit, syncope ex cigs - Current Medication List Active Medications Current Medications Generic Name Dose Route Start Last Admin Trade Name Frelisa PRN Reason Stop Dose Admin Acetaminophen 650 mg 11/08/16 17:08 Tylenol - PO Q4H PRN FEVER OR PAIN Allopurinol 100 mg 11/09/16 10:00 11/18/16 09:12 Zyloprim - PO 100 mg DAILY [facility] Administration Ascorbic Acid 500 mg 11/09/16 10:00 11/18/16 09:12 Vitamin C - PO 500 mg DAILY [facility] Administration Atorvastatin Calcium 10 mg 11/08/16 22:00 11/17/16 21:49 Lipitor - PO 10 mg HS [facility] Administration Ferrous Sulfate 325 mg 11/09/16 10:00 11/18/16 09:12 Feosol - PO 325 mg DAILY [facility] Administration Furosemide 100 mg 11/14/16 11:01 11/18/16 06:21 Lasix Injection - IVPUSH 100 mg BIDLASIX [facility] Administration Milrinone Lactate/Dextrose 100 mls @ 5.222 mls/hr 11/17/16 10:45 11/18/16 04:45 Milrinone 20mg/100ml Ivpb - IVPB 5.222 mls/hr TITR [facility] Administration 0.25 MCG/KG/MIN Metolazone 2.5 mg 11/12/16 10:30 11/17/16 14:09 Zaroxolyn - PO 2.5 mg DAILY@1330 [facility] Administration Morphine Sulfate 2 mg 11/18/16 00:52 11/18/16 01:02 Morphine Injection - IVPUSH 2 mg Q4H PRN Administration SHORTNESS OF BREATH Polyethylene Glycol 17 gm 11/09/16 10:00 11/18/16 09:12 Miralax (For Daily Use) - PO 17 gm DAILY [facility] Administration Potassium Chloride 40 meq 11/12/16 22:00 11/18/16 09:12 K-Dur - PO 40 meq BID [facility] Administration Ranitidine HCl 150 mg 11/09/16 10:00 11/18/16 09:12 Zantac - PO 150 mg DAILY [facility] Administration - Objective Vital Signs: Vital Signs Temp 98.0 F 11/18/16 10:00 Pulse 105 H 11/18/16 10:00 Resp 22 11/18/16 10:00 BP 101/88 11/18/16 10:00 Pulse Ox 98 11/18/16 06:20 Intake & Output 11/17/16 11/17/16 11/18/16 11:59 23:59 11:59 Intake Total 100 130 212.4 Balance 100 130 212.4 Weight 153 lb 8 oz 150 lb 2 oz Intake: IV 100 10 92.4 Milrinone 20Mg/100Ml Ivpb 90 62.4 - 100 ml @ 0.25 MCG/KG/ MIN 5.222 mls/hr IVPB TITR [facility] Rx#:[id number] SL 10 10 30 Oral 120 120 Other: Voiding Method Incontinent Incontinent Incontinent # Unmeasured Voids Void 2 2 Bowel Movement Yes Yes # Bowel Movements 4 1 Weight Measurement Method Patient Lift Scale Patient Lift Scale Constitutional: Yes: No Distress, Calm Eyes: No: Sclera Icterus HENT: No: Nasal Congestion Cardiovascular: Yes: Regular Rate and Rhythm, JVD (++ EJs), S1, S2, Other (PMI non diplaced) Respiratory: Yes: Regular, Diminished (bases). No: Accessory Muscle Use, Rales , Wheezes Gastrointestinal: Yes: Normal Bowel Sounds, Soft. No: Tenderness Musculoskeletal: Yes: Other (No kyphosis) Extremities: No: Cold Edema: Yes (1+ low pretib/ankles) Integumentary: No: Jaundice Neurological: Yes: Alert. No: Seizure Psychiatric: No: Agitated Labs: Laboratory Last Values WBC 13.2 K/mm3 (4.0-10.0) H D 11/18/16 05:35 RBC 4.17 M/mm3 (4.00-5.60) 11/18/16 05:35 Hgb 9.5 GM/dL (11.7-16.9) L 11/18/16 05:35 Hct 32.9 % (35.4-49) L 11/18/16 05:35 MCV 78.8 fl (80-96) L 11/18/16 05:35 MCH 22.8 pg (25.7-33.7) L 11/18/16 05:35 MCHC 28.9 g/dl (32.0-35.9) L 11/18/16 05:35 RDW 22.4 % (11.9-15.9) H 11/18/16 05:35 Plt Count 193 K/MM3 (134-434) 11/18/16 05:35 MPV 8.6 fl (7.5-11.1) 11/18/16 05:35 Neutrophils % 71.4 % (42.8-82.8) 11/17/16 05:35 Lymphocytes % 14.6 % (8-40) D 11/17/16 05:35 Monocytes % 12.3 % (3.8-10.2) H 11/17/16 05:35 Eosinophils % 1.0 % (0-4.5) 11/17/16 05:35 Basophils % 0.7 % (0-2.0) 11/17/16 05:35 Differential Comment Slide scanned 11/10/16 05:20 Platelet Estimate Adequate (NORMAL) 11/11/16 05:50 Platelet Comment No clumping noted 11/11/16 05:50 Polychromasia Few 11/11/16 05:50 Hypochromic-Microcytic 2+ 11/17/16 05:35 Anisocytosis 3+ 11/17/16 05:35 Microcytosis 1+ 11/17/16 05:35 Macrocytosis 2+ 11/17/16 05:35 Target Cells 2+ 11/17/16 05:35 Morphology Comment Slide scanned 11/10/16 05:20 INR 1.43 (0.82-1.09) H 11/10/16 05:20 Sodium 144 mmol/L (136-145) 11/18/16 05:35 Potassium 4.1 mmol/L (3.5-5.1) 11/18/16 05:35 Chloride 91 mmol/L (98-107) L 11/18/16 05:35 Carbon Dioxide 48 mmol/L (21-32) H 11/18/16 05:35 Anion Gap 5 (8-16) L 11/18/16 05:35 BUN 89 mg/dL (7-18) H 11/18/16 05:35 Creatinine 1.8 mg/dL (0.7-1.3) H 11/18/16 05:35 Creat Clearance w eGFR 30.86 (>60) 11/17/16 05:35 Random Glucose 118 mg/dL (74-106) H 11/18/16 05:35 Calcium 8.5 mg/dL (8.5-10.1) 11/18/16 05:35 Magnesium 2.6 mg/dL (1.8-2.4) H 11/18/16 05:35 Total Bilirubin 1.1 mg/dL (0.2-1.0) H D 11/17/16 05:35 AST 33 U/L (15-37) D 11/17/16 05:35 ALT 16 U/L (12-78) D 11/17/16 05:35 Alkaline Phosphatase 164 U/L (45-117) H 11/17/16 05:35 Creatine Kinase 20 IU/L (39-308) L 11/09/16 05:53 Troponin I 0.14 ng/ml (0.00-0.05) H 11/09/16 05:53 Total Protein 6.2 g/dl (6.4-8.2) L 11/17/16 05:35 Albumin 2.0 g/dl (3.4-5.0) L 11/17/16 05:35 Fluid Amylase 30 11/14/16 12:40 Peritoneal WBC 319 /mm3 11/14/16 12:40 Peritoneal RBC 2,188 /mm3 11/14/16 12:40 Periton Neutrophils 11 % 11/14/16 12:40 Periton Lymphocytes 36 % 11/14/16 12:40 Periton Mesothelial 13 % 11/14/16 12:40 Periton Macrophages 40 % 11/14/16 12:40 Peritoneal Tot Protein 3 gm/dL 11/14/16 12:40 Peritoneal Albumin 1 g/dL 11/14/16 12:40 Peritoneal LDH 74 IU/L 11/14/16 12:40 Peritoneal Glucose 157 mg/dL 11/14/16 12:40 Peritoneal Amylase 30 U/L 11/14/16 12:40 - ....Imaging EKG: Other (tele: NSR, V-P/V-S; no VT) cath 2012 all grafts patent (self to lad, svg to lcx, svg to rpda) Echo 07/2016: mod lve, sev reduced LV fn (global). mild rve with mild hypo ( severe TR, intrinsic RV fn likely more depressed), 1+ mr, severe tr, mod phtn, + pl effusion Echo 07/2015: sev lve, sev reduced lvef (global). grade 2 diastolic dysfunction. nl RV. mild connie. dilated ivc. mod mr, mod-sev tr, sev phtn, mild pr. Echo 08/03: sev LVE with severe decr EF; mild RV dil with moderate hypo; mod MR/ TR; RVSP >60 ecg 11/08/16: sr, vpaced, pvc cxr: chf improved slightly a/p: 76 yo ex smoker, with h/o CAD s/p CABG, ischemic CM with EF 25% s/p BiVICD with secondary severe pulmonary hypertension, prior CVA, HL, copd, CKD, bph, chronic iron deficiency anemia here with chf. isch CMP/acute systolic CHF: -08/2016 admitted here for chf needing milrinone/vasopressin/lasix -despite high doses of diuretic (torsemide 100 bid with metolazone at times) he reaccumulated volume and is now back in chf exacerbation (goal wt 130 lbs, here now at 150) -started lasix 80 iv bid here -wt not accurate, 150 yest, 170 today -given was on equivalent of 200mg po daily lasix at home (i.e. torsemide 100mg) , will double that dose = lasix 100mg iv bid. 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 Continue lasix 80mg BID -11/11: Weight at 169#, Creat stable. remains volume up on exam. Will add metolazone 2.5mg before AM lasix dose. -11/12: renal fxn and wt remained unchanged on lasix 80 IV BID, until metolazone (2.5) given yest--wt down today, renal fxn and lytes stable. cont lasix (incr to 100 iv bid), with metolazone 2.5 qd -11/13: continue current lasix 100 bid with metolazone. If still no sig decrease in wt tomorrow may need to add milrinone. Can also d/w IR about possible paracentesis to help remove volume. -11/14: wt not decreasing much and cr up a bit today. Will have paracentesis today. If wt/cr not improving tomorrow then will start on milrinone. -11/15: had large vol paracentesis yesterday, vol down today. Will cont with iv lasix and metolazone for today. If wt/cr not improving tomorrow then will start on milrinone. -11/16: no further wt decline since paracentesis, remains vol up with rising cr as well. Will now start milrinone in addition to current lasix iv/metolazone. If bp too low with milrinone may need vasopressin as well. -11/17: on milrinone gtt 0.375; wt down 2 lbs, bun down but creat up slightly. JVD signif improved vs previous, though remains elevated. very frequent NSVT runs on tele. given pt's age and GFR 30s, will reduce milrinone to 0.25mcg/kg/ min. cont lasix 100 iv bid and metolazone 2.5. rpt CXR in am--hope to see effusions signif improving -11/18: wt down, cr stable/improved. CXR with minor improvement. Cont same milrinone/diuresis. -hypotensive with low dose metopr succinate 12.5 qd here--med d/c'd -d/w daughter about possible need for home milrinone in fusion, she is agreeable if needed. Will see how does on this admit and decide if he may need eval [facility] to [facility] home milrinone. V Tach: - nsvt seen on prior ICD checks and on tele here in past as well. - replete K/Mag aggressively (usual goals) - freq runs, some longish (though non-sustained) - bp too low for bb CAD s/p h/o CABG 2006 - have been holding ASA, plavix due to anemia. - trop borderline intermediate range and no change x 2, no clinical signs ACS here -cont statin anemia -recent admits for anemia, responded to prbcs and hgb stable. GI w/u deferred then 2/2 chf. He has been off asa and plavix and hgb remains stable. h/o CVA: -was on ASA, plavix --> on hold as above. PAT/PSVT - brief episodes on tele here in past manjinder: -likely cardiorenal syndrome -diuresis plan as above, trend cr
[2016-11-18] MEDS: METOLAZONE 2.5 MG TABLET (FP) PO SCH (13:48)
[2016-11-18] MEDS: ATORVASTATIN CA 10 MG TABLET (FP) PO SCH (21:47)
[2016-11-19] MEDS: MILRINONE 20MG/100ML IVPB - 100 ML IVPB SCH (00:06)
[2016-11-19] MEDS: FUROSEMIDE 100 MG/10 ML INJECTABLE VIAL IVPUSH SCH ×2 (06:31→14:15)
[2016-11-19 07:27] LABS: BASOPHIL 0.2 % (0-2.0); EOSINOPHIL 0.9 % (0-4.5); MCH 22.6 pg (25.7-33.7); MCHC 29.1 g/dl (32.0-35.9); MEAN CELL VOLUME 77.7 fl (80-96); MEAN PLT VOLUME 8.5 fl (7.5-11.1); NEUTROPHILS 74.8 % (42.8-82.8); PLATELET COUNT 151 K/MM3 (134-434); WHITE BLOOD COUNT 9.9 K/mm3 (4.0-10.0)
[2016-11-19 07:58] LABS: ALBUMIN 1.8 g/dl (3.4-5.0); CALCIUM 8.4 mg/dL (8.5-10.1); CREATININE 1.9 mg/dL (0.7-1.3); GLUCOSE,RANDOM 101 mg/dL (74-106); SGOT/AST 26 U/L (15-37); SGPT/ALT 14 U/L (12-78)
[2016-11-19 08:00] LABS: ALK PHOS 136 U/L (45-117); BILIRUBIN,TOTAL 1.1 mg/dL (0.2-1.0); TOT PROT 5.9 g/dl (6.4-8.2)
[2016-11-19 09:22] LABS: ANION GAP 1 (8-16); CO2 48 mmol/L (21-32)
[2016-11-19] MEDS: POTASSIUM CHLORIDE TABS 20 MEQ TABLET.ER (FP) PO SCH ×3 (09:43→21:32)
[2016-11-19] MEDS: FERROUS SO4 325 MG TABLET (FP) PO SCH (09:43)
[2016-11-19] MEDS: ALLOPURINOL 100 MG TABLET (FP) PO SCH (09:43)
[2016-11-19] MEDS: POLYETHYLENE GLYCOL 3350 119 GM BTL PO SCH (09:43)
[2016-11-19] MEDS: ASCORBIC ACID 500 MG TABLET (FP) PO SCH (09:43)
[2016-11-19] MEDS: RANITIDINE HCL 150 MG TABLET (FP) PO SCH (09:43)
[2016-11-19 10:17] LABS: ARTERIAL BLOOD GAS BASE EXCESS 18.1 meq/l (-2-2)
[2016-11-19 10:18] LABS: ALLENS TEST POSITIVE; ART PUNCT SITE RIGHT RADIAL; LPM/O2% 100%; PT. ON O2? YES; TYPE OF O2 NON REBREATHER
[2016-11-19 10:19] LABS: ARTERIAL BLOOD GAS pH 7.48 (7.35-7.45)
--- NOTE | 2016-11-19 10:21 | PN ---
Progress Note, Physician Chief Complaint: chf History of Present Illness: hypoxic to 70s% this am, RN placed FM back on. he admits to sob--"a little". denies chest heaviness/pressure denies palpitations/syncope ex cigs - Current Medication List Current Medications: Active Medications Acetaminophen (Tylenol -) 650 mg PO Q4H PRN PRN Reason: FEVER OR PAIN Allopurinol (Zyloprim -) 100 mg PO DAILY [facility] Last Admin: 11/19/16 09:43 Dose: 100 mg Ascorbic Acid (Vitamin C -) 500 mg PO DAILY [facility] Last Admin: 11/19/16 09:43 Dose: 500 mg Atorvastatin Calcium (Lipitor -) 10 mg PO HS [facility] Last Admin: 11/18/16 21:47 Dose: 10 mg Ferrous Sulfate (Feosol -) 325 mg PO DAILY [facility] Last Admin: 11/19/16 09:43 Dose: 325 mg Furosemide (Lasix Injection -) 100 mg IVPUSH BIDLASIX [facility] Last Admin: 11/19/16 06:31 Dose: 100 mg Milrinone Lactate/Dextrose (Milrinone 20mg/100ml Ivpb -) 100 mls @ 5.222 mls/ hr IVPB TITR [facility] PRN Reason: 0.25 MCG/KG/MIN Last Admin: 11/19/16 00:06 Dose: 5.222 mls/hr Metolazone (Zaroxolyn -) 2.5 mg PO DAILY@1330 [facility] Last Admin: 11/18/16 13:48 Dose: 2.5 mg Morphine Sulfate (Morphine Injection -) 2 mg IVPUSH Q4H PRN PRN Reason: SHORTNESS OF BREATH Last Admin: 11/18/16 01:02 Dose: 2 mg Polyethylene Glycol (Miralax (For Daily Use) -) 17 gm PO DAILY [facility] Last Admin: 11/19/16 09:43 Dose: 17 gm Potassium Chloride (K-Dur -) 40 meq PO BID [facility] Last Admin: 11/19/16 09:43 Dose: 40 meq Ranitidine HCl (Zantac -) 150 mg PO DAILY [facility] Last Admin: 11/19/16 09:43 Dose: 150 mg - Objective Vital Signs: Vital Signs Temperature 98.2 F 11/19/16 06:00 Pulse Rate 88 11/19/16 06:00 Respiratory Rate 20 11/19/16 06:00 Blood Pressure 98/50 07/31/17 06:00 O2 Sat by Pulse Oximetry (%) 98 11/19/16 06:05 Constitutional: Yes: No Distress, Calm Eyes: No: Sclera Icterus HENT: No: Nasal Congestion Cardiovascular: Yes: Regular Rate and Rhythm, JVD, Murmur (HSM at LLSB c/w TR), S1, S2, Other (PMI non diplaced). No: Gallop Respiratory: Yes: CTA Bilaterally, Diminished (lower lung garcia). No: Accessory Muscle Use, Rales, Wheezes Gastrointestinal: Yes: Normal Bowel Sounds, Soft. No: Tenderness Musculoskeletal: Yes: Other (No kyphosis) Extremities: No: Cold Edema: Yes (1+ pretib) Integumentary: No: Jaundice Neurological: Yes: Alert. 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 mild rve with mild hypo ( severe TR, intrinsic RV fn likely more depressed), 1+ mr, severe tr, mod phtn, + pl effusion Echo 07/2015: sev lve, sev reduced lvef (global). grade 2 diastolic dysfunction. nl RV. mild connie. dilated ivc. mod mr, mod-sev tr, sev phtn, mild pr. Echo 08/03: sev LVE with severe decr EF; mild RV dil with moderate hypo; mod MR/ TR; RVSP >60 ecg 11/08/16: sr, vpaced, pvc cxr: chf improved slightly a/p: 76 yo ex smoker, with h/o CAD s/p CABG, ischemic CM with EF 25% s/p BiVICD with secondary severe pulmonary hypertension, prior CVA, HL, copd, CKD, bph, chronic iron deficiency anemia here with chf. isch CMP/acute systolic CHF: -08/2016 admitted here for chf needing milrinone/vasopressin/lasix -despite high doses of diuretic (torsemide 100 bid with metolazone at times) he reaccumulated volume and is now back in chf exacerbation (goal wt 130 lbs, here now at 150) -started lasix 80 iv bid here -wt not accurate, 150 yest, 170 today -given was on equivalent of 200mg po daily lasix at home (i.e. torsemide 100mg) , will double that dose = lasix 100mg iv bid. 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 Continue lasix 80mg BID -11/11: Weight at 169#, Creat stable. remains volume up on exam. Will add metolazone 2.5mg before AM lasix dose. -11/12: renal fxn and wt remained unchanged on lasix 80 IV BID, until metolazone (2.5) given yest--wt down today, renal fxn and lytes stable. cont lasix (incr to 100 iv bid), with metolazone 2.5 qd -11/13: continue current lasix 100 bid with metolazone. If still no sig decrease in wt tomorrow may need to add milrinone. Can also d/w IR about possible paracentesis to help remove volume. -11/14: wt not decreasing much and cr up a bit today. Will have paracentesis today. If wt/cr not improving tomorrow then will start on milrinone. -11/15: had large vol paracentesis yesterday, vol down today. Will cont with iv lasix and metolazone for today. If wt/cr not improving tomorrow then will start on milrinone. -11/16: no further wt decline since paracentesis, remains vol up with rising cr as well. Will now start milrinone in addition to current lasix iv/metolazone. If bp too low with milrinone may need vasopressin as well. -11/17: on milrinone gtt 0.375; wt down 2 lbs, bun down but creat up slightly. JVD signif improved vs previous, though remains elevated. very frequent NSVT runs on tele. given pt's age and GFR 30s, will reduce milrinone to 0.25mcg/kg/ min. cont lasix 100 iv bid and metolazone 2.5. rpt CXR in am--hope to see effusions signif improving -11/18: wt down, cr stable/improved. CXR with minor improvement. Cont same milrinone/diuresis. -11/19: CXR reviewed: definite improvement though signif pulm edema/effusions persist. wt up 1 lb today, hypoxic with mild sob--back on FM this AM. neck veins way up again today. renal fxn stable. will incr diuresis (metolazone bid today), cont lasix 100 iv bid with milrinone same -hypotensive with low dose metopr succinate 12.5 qd here--med d/c'd -d/w daughter about possible need for home milrinone in fusion, she is agreeable if needed. Will see how does on this admit and decide if he may need eval by chf team at [facility] to set up home milrinone. V Tach: - nsvt seen on prior ICD checks and on tele here in past as well. - replete K/Mag aggressively (usual goals) - freq runs, some longish (though non-sustained) - bp too low for bb CAD s/p h/o CABG 2006 - have been holding ASA, plavix due to anemia. - trop borderline intermediate range and no change x 2, no clinical signs ACS here -cont statin anemia -recent admits for anemia, responded to prbcs and hgb stable. GI w/u deferred then 2/2 chf. He has been off asa and plavix and hgb remains stable. h/o CVA: -was on ASA, plavix --> on hold as above. PAT/PSVT - brief episodes on tele here in past manjinder: -likely cardiorenal syndrome -diuresis plan as above, trend cr
--- NOTE | 2016-11-19 12:16 | EKG ---
Test Reason : Blood Pressure : / mmHG Vent. Rate : 113 BPM Atrial Rate : 111 BPM P-R Int : 000 ms QRS Dur : 144 ms QT Int : 410 ms P-R-T Axes : 000 234 073 degrees QTc Int : 562 ms SUSPECT ARM LEAD REVERSAL, INTERPRETATION ASSUMES NO REVERSAL POOR DATA QUALITY, INTERPRETATION MAY BE ADVERSELY AFFECTED UNDETERMINED RHYTHM NON-SPECIFIC INTRA-VENTRICULAR CONDUCTION BLOCK RIGHT VENTRICULAR HYPERTROPHY INFERIOR INFARCT (CITED ON OR BEFORE 17-NOV-2016) ANTEROLATERAL INFARCT (CITED ON OR BEFORE 17-NOV-2016) ABNORMAL ECG WHEN COMPARED WITH ECG OF 17-NOV-2016 23:59, CURRENT UNDETERMINED RHYTHM PRECLUDES RHYTHM COMPARISON, NEEDS REVIEW QRS DURATION HAS INCREASED Confirmed by RACHEL ALTMAN MD ([id number]) on 11/19/2016 12:16:05 PM Referred By: Confirmed By:RACHEL ALTMAN MD
--- NOTE | 2016-11-19 12:17 | EKG ---
Test Reason : Blood Pressure : / mmHG Vent. Rate : 119 BPM Atrial Rate : 127 BPM P-R Int : 132 ms QRS Dur : 102 ms QT Int : 294 ms P-R-T Axes : 056 -77 064 degrees QTc Int : 413 ms UNDETERMINED RHYTHM LEFT AXIS DEVIATION LOW VOLTAGE QRS SEPTAL INFARCT LATERAL INFARCT , AGE UNDETERMINED ABNORMAL ECG WHEN COMPARED WITH ECG OF 15-NOV-2016 09:38, CURRENT UNDETERMINED RHYTHM PRECLUDES RHYTHM COMPARISON, NEEDS REVIEW Confirmed by RACHEL ALTMAN MD ([id number]) on 11/19/2016 12:16:35 PM Referred By: Confirmed By:RACHEL ALTMAN MD
--- NOTE | 2016-11-19 12:36 | PN ---
Progress Note (short form) - Note Progress Note: pt hypoxic today placed on bipap- better now looks weak. daughter at bedside Vital Signs Temp 98.9 F 11/19/16 09:00 Pulse 81 11/19/16 10:25 Resp 22 11/19/16 09:00 BP 96/64 11/19/16 09:00 Pulse Ox 98 11/19/16 10:25 Intake & Output 11/18/16 11/19/16 11/19/16 23:59 11:59 23:59 Intake Total 135.2 312.4 Balance 135.2 312.4 Weight 151 lb 6.4 oz Intake: IV 15.2 72.4 Milrinone 20Mg/100Ml Ivpb 5.2 62.4 - 100 ml @ 0.25 MCG/KG/ MIN 5.222 mls/hr IVPB TITR [facility] Rx#:[id number] SL 10 10 Oral 120 240 Other: Voiding Method Incontinent Incontinent Incontinent # Unmeasured Voids Void 2 2 Bowel Movement Yes Yes # Bowel Movements 1 1 Weight Measurement Method Patient Lift Scale Active Medications Acetaminophen (Tylenol -) 650 mg PO Q4H PRN PRN Reason: FEVER OR PAIN Allopurinol (Zyloprim -) 100 mg PO DAILY [facility] Last Admin: 11/19/16 09:43 Dose: 100 mg Ascorbic Acid (Vitamin C -) 500 mg PO DAILY [facility] Last Admin: 11/19/16 09:43 Dose: 500 mg Atorvastatin Calcium (Lipitor -) 10 mg PO HS [facility] Last Admin: 11/18/16 21:47 Dose: 10 mg Ferrous Sulfate (Feosol -) 325 mg PO DAILY [facility] Last Admin: 11/19/16 09:43 Dose: 325 mg Furosemide (Lasix Injection -) 100 mg IVPUSH BIDLASIX [facility] Milrinone Lactate/Dextrose (Milrinone 20mg/100ml Ivpb -) 100 mls @ 5.222 mls/ hr IVPB TITR [facility] PRN Reason: 0.25 MCG/KG/MIN Last Admin: 11/19/16 00:06 Dose: 5.222 mls/hr Metolazone (Zaroxolyn -) 2.5 mg PO 0530,1330 [facility] Morphine Sulfate (Morphine Injection -) 2 mg IVPUSH Q4H PRN PRN Reason: SHORTNESS OF BREATH Last Admin: 11/18/16 01:02 Dose: 2 mg Polyethylene Glycol (Miralax (For Daily Use) -) 17 gm PO DAILY [facility] Last Admin: 11/19/16 09:43 Dose: 17 gm Potassium Chloride (K-Dur -) 40 meq PO TID [facility] Ranitidine HCl (Zantac -) 150 mg PO DAILY [facility] Last Admin: 11/19/16 09:43 Dose: 150 mg CBC, BMP 11/19/16 06:00 11/19/16 06:00 Physical Exam. Constitutional: Yes: weak/ sat 94 percent now on 2 l Cardiovascular: Yes: Regular Rate and Rhythm, Murmur Respiratory: Yes: Rales. No: Rhonchi Gastrointestinal: Yes: soft/ distended Edema: +2 Problem List - Problems (1) CHF (congestive heart failure) Code(s): I50.9 - HEART FAILURE, UNSPECIFIED Qualifiers: Congestive heart failure chronicity: acute on chronic (2) CKD (chronic kidney disease) Code(s): N18.9 - CHRONIC KIDNEY DISEASE, UNSPECIFIED Qualifiers: Chronic kidney disease stage: stage 3 (moderate) Qualified Code(s): N18.3 - Chronic kidney disease, stage 3 (moderate) (3) Anemia Code(s): D64.9 - ANEMIA, UNSPECIFIED Qualifiers: Anemia type: iron deficiency Iron deficiency anemia type: unspecified iron deficiency Qualified Code(s): D50.9 - Iron deficiency anemia, unspecified (4) CHF exacerbation Code(s): I50.9 - HEART FAILURE, UNSPECIFIED (5) COPD (chronic obstructive pulmonary disease) Code(s): J44.9 - CHRONIC OBSTRUCTIVE PULMONARY DISEASE, UNSPECIFIED Assessment/Plan overall condition poor abg / labs noted/ reviewed continue present care discussed with pts daughter also who is at bedside. Problem List - Problems (1) Anemia Code(s): D64.9 - ANEMIA, UNSPECIFIED Qualifiers: Anemia type: iron deficiency Iron deficiency anemia type: unspecified iron deficiency Qualified Code(s): D50.9 - Iron deficiency anemia, unspecified (2) CHF exacerbation Code(s): I50.9 - HEART FAILURE, UNSPECIFIED (3) Pacemaker Code(s): Z95.0 - PRESENCE OF CARDIAC PACEMAKER (4) Ascites Code(s): R18.8 - OTHER ASCITES
[2016-11-19] MEDS: METOLAZONE 2.5 MG TABLET (FP) PO SCH (13:30)
[2016-11-19] MEDS ORDERED: METOLAZONE 2.5 MG TABLET (FP) PO SCH ×2 (14:00→22:00)
[2016-11-19] MEDS ORDERED: PT OWN MED DRAWER 7, Y5N ONE (14:12)
[2016-11-19] MEDS: ATORVASTATIN CA 10 MG TABLET (FP) PO SCH (21:32)
[2016-11-20] MEDS: MILRINONE 20MG/100ML IVPB - 100 ML IVPB SCH ×3 (02:27→19:30)
[2016-11-20] MEDS: POTASSIUM CHLORIDE TABS 20 MEQ TABLET.ER (FP) PO SCH ×3 (06:10→21:09)
[2016-11-20] MEDS: METOLAZONE 2.5 MG TABLET (FP) PO SCH ×2 (06:11→14:15)
[2016-11-20] MEDS: FUROSEMIDE 100 MG/10 ML INJECTABLE VIAL IVPUSH SCH ×2 (06:12→15:00)
[2016-11-20] MEDS: ASCORBIC ACID 500 MG TABLET (FP) PO SCH (10:01)
[2016-11-20] MEDS: RANITIDINE HCL 150 MG TABLET (FP) PO SCH (10:01)
[2016-11-20] MEDS: FERROUS SO4 325 MG TABLET (FP) PO SCH (10:01)
[2016-11-20] MEDS: ALLOPURINOL 100 MG TABLET (FP) PO SCH (10:01)
--- NOTE | 2016-11-20 10:39 | PN ---
Progress Note (short form) - Note Progress Note: Chief Complaint: chf History of Present Illness: Increased metolazone to bid yesterday. But lasix has been held today due to hypotension (asx). denies chest heaviness/pressure denies palpitations/syncope, denies sob + fatigue ex cigs Current Medications Acetaminophen (Tylenol -) 650 mg PO Q4H PRN PRN Reason: FEVER OR PAIN Allopurinol (Zyloprim -) 100 mg PO DAILY [facility] Last Admin: 11/20/16 10:01 Dose: 100 mg Ascorbic Acid (Vitamin C -) 500 mg PO DAILY [facility] Last Admin: 11/20/16 10:01 Dose: 500 mg Atorvastatin Calcium (Lipitor -) 10 mg PO HS [facility] Last Admin: 11/19/16 21:32 Dose: 10 mg Ferrous Sulfate (Feosol -) 325 mg PO DAILY [facility] Last Admin: 11/20/16 10:01 Dose: 325 mg Furosemide (Lasix Injection -) 100 mg IVPUSH BIDLASIX [facility] Last Admin: 11/20/16 06:12 Dose: Not Given Milrinone Lactate/Dextrose (Milrinone 20mg/100ml Ivpb -) 100 mls @ 5.222 mls/ hr IVPB TITR [facility] PRN Reason: 0.25 MCG/KG/MIN Last Admin: 11/20/16 02:27 Dose: 5.222 mls/hr Metolazone (Zaroxolyn -) 2.5 mg PO 0530,1330 [facility] Last Admin: 11/20/16 06:11 Dose: Not Given Morphine Sulfate (Morphine Injection -) 2 mg IVPUSH Q4H PRN PRN Reason: SHORTNESS OF BREATH Last Admin: 11/18/16 01:02 Dose: 2 mg Polyethylene Glycol (Miralax (For Daily Use) -) 17 gm PO DAILY [facility] Last Admin: 11/19/16 09:43 Dose: 17 gm Potassium Chloride (K-Dur -) 40 meq PO TID [facility] Last Admin: 11/20/16 06:10 Dose: 40 meq Ranitidine HCl (Zantac -) 150 mg PO DAILY [facility] Last Admin: 11/20/16 10:01 Dose: 150 mg Vital Signs - 24 hr 11/19/16 11/19/16 11/19/16 14:00 14:05 17:00 Temperature 98.8 F 98.8 F Pulse Rate 60 72 85 Respiratory 22 22 18 Rate Blood Pressure 89/45 84/48 81/54 O2 Sat by Pulse Oximetry (%) 11/19/16 11/19/16 11/20/16 17:10 22:00 02:00 Temperature 98.2 F 98.1 F Pulse Rate 75 87 Respiratory 19 22 Rate Blood Pressure 92/53 93/57 O2 Sat by Pulse 97 Oximetry (%) 11/20/16 11/20/16 06:00 09:00 Temperature 99.2 F Pulse Rate 90 90 Respiratory 18 18 Rate Blood Pressure 85/57 93/50 O2 Sat by Pulse 95 93 L Oximetry (%) Intake & Output 11/18/16 11/19/16 11/20/16 11/21/16 07:59 07:59 07:59 07:59 Intake Total 342.4 447.6 844.0 200 Balance 342.4 447.6 844.0 200 Weight 150 lb 2 oz 151 lb 6.4 oz 151 lb 3.2 oz Constitutional: Yes: No Distress, Calm Eyes: No: Sclera Icterus HENT: No: Nasal Congestion Cardiovascular: Yes: Regular Rate and Rhythm, JVD, Murmur (HSM at LLSB c/w TR), S1, S2, Other (PMI non diplaced). No: Gallop Respiratory: Yes: CTA Bilaterally, Diminished (lower lung garcia). No: Accessory Muscle Use, Rales, Wheezes Gastrointestinal: Yes: Normal Bowel Sounds, Soft. + distended No: Tenderness Musculoskeletal: Yes: Other (No kyphosis) Extremities: No: Cold Edema: Yes (1+ diffuse, dependent) Integumentary: No: Jaundice Neurological: Yes: Alert. No: Seizure Psychiatric: No: Agitated Labs: no CBC, BMP - ....Imaging EKG: Other (tele: NSR, demand pacing with wide polymorphic wide complex beats likely mixture of frequent pvc's and intrisic rhythm.) Assessment/Plan cath 2012 all grafts patent (self to lad, svg to lcx, svg to rpda) Echo 07/2016: mod lve, sev reduced LV fn (global). mild rve with mild hypo ( severe TR, intrinsic RV fn likely more depressed), 1+ mr, severe tr, mod phtn, + pl effusion Echo 07/2015: sev lve, sev reduced lvef (global). grade 2 diastolic dysfunction. nl RV. mild connie. dilated ivc. mod mr, mod-sev tr, sev phtn, mild pr. Echo 08/03: sev LVE with severe decr EF; mild RV dil with moderate hypo; mod MR/ TR; RVSP >60 ecg 11/08/16: sr, vpaced, pvc cxr: chf improved slightly a/p: 76 yo ex smoker, with h/o CAD s/p CABG, ischemic CM with EF 25% s/p BiVICD with secondary severe pulmonary hypertension, prior CVA, HL, copd, CKD, bph, chronic iron deficiency anemia here with chf. isch CMP/acute systolic CHF: -08/2016 admitted here for chf needing milrinone/vasopressin/lasix -despite high doses of diuretic (torsemide 100 bid with metolazone at times) he reaccumulated volume and is now back in chf exacerbation (goal wt 130 lbs, here now at 150) -started lasix 80 iv bid here -wt not accurate, 150 yest, 170 today -given was on equivalent of 200mg po daily lasix at home (i.e. torsemide 100mg) , will double that dose = lasix 100mg iv bid. 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 Continue lasix 80mg BID -11/11: Weight at 169#, Creat stable. remains volume up on exam. Will add metolazone 2.5mg before AM lasix dose. -11/12: renal fxn and wt remained unchanged on lasix 80 IV BID, until metolazone (2.5) given yest--wt down today, renal fxn and lytes stable. cont lasix (incr to 100 iv bid), with metolazone 2.5 qd -11/13: continue current lasix 100 bid with metolazone. If still no sig decrease in wt tomorrow may need to add milrinone. Can also d/w IR about possible paracentesis to help remove volume. -11/14: wt not decreasing much and cr up a bit today. Will have paracentesis today. If wt/cr not improving tomorrow then will start on milrinone. -11/15: had large vol paracentesis yesterday, vol down today. Will cont with iv lasix and metolazone for today. If wt/cr not improving tomorrow then will start on milrinone. -11/16: no further wt decline since paracentesis, remains vol up with rising cr as well. Will now start milrinone in addition to current lasix iv/metolazone. If bp too low with milrinone may need vasopressin as well. -11/17: on milrinone gtt 0.375; wt down 2 lbs, bun down but creat up slightly. JVD signif improved vs previous, though remains elevated. very frequent NSVT runs on tele. given pt's age and GFR 30s, will reduce milrinone to 0.25mcg/kg/ min. cont lasix 100 iv bid and metolazone 2.5. rpt CXR in am--hope to see effusions signif improving -11/18: wt down, cr stable/improved. CXR with minor improvement. Cont same milrinone/diuresis. -11/19: CXR reviewed: definite improvement though signif pulm edema/effusions persist. wt up 1 lb today, hypoxic with mild sob--back on FM this AM. neck veins way up again today. renal fxn stable. will incr diuresis (metolazone bid today), cont lasix 100 iv bid with milrinone same -hypotensive with low dose metopr succinate 12.5 qd here--med d/c'd -d/w daughter about possible need for home milrinone in fusion, she is agreeable if needed. Will see how does on this admit and decide if he may need eval by chf team at [facility] to set up home milrinone. - 11/20: no further weight gain, but no significant loss. Now diuresis being hindered by low bp's. May need uptitration of milrinone to support bp ( decreased dose from 0.375 b/c of frequent nsvt). Will increase dose slightly up to 0.325. aggressive lyte repletion. no bmp today, will repeat. V Tach: - nsvt seen on prior ICD checks and on tele here in past as well. - replete K/Mag aggressively (usual goals) - freq runs, some longish (though non-sustained) - bp too low for bb CAD s/p h/o CABG 2006 - have been holding ASA, plavix due to anemia. - trop borderline intermediate range and no change x 2, no clinical signs ACS here -cont statin anemia -recent admits for anemia, responded to prbcs and hgb stable. GI w/u deferred then 2/2 chf. He has been off asa and plavix and hgb remains stable. h/o CVA: -was on ASA, plavix --> on hold as above. PAT/PSVT - brief episodes on tele here in past manjinder: -likely cardiorenal syndrome -diuresis plan as above, trend cr
--- NOTE | 2016-11-20 10:47 | PN ---
Progress Note, Physician Chief Complaint: daughter at bedside Pt resting comfortably No distress BIPAP as needed - Current Medication List Current Medications: Active Medications Acetaminophen (Tylenol -) 650 mg PO Q4H PRN PRN Reason: FEVER OR PAIN Allopurinol (Zyloprim -) 100 mg PO DAILY [facility] Last Admin: 11/20/16 10:01 Dose: 100 mg Ascorbic Acid (Vitamin C -) 500 mg PO DAILY [facility] Last Admin: 11/20/16 10:01 Dose: 500 mg Atorvastatin Calcium (Lipitor -) 10 mg PO HS [facility] Last Admin: 11/19/16 21:32 Dose: 10 mg Ferrous Sulfate (Feosol -) 325 mg PO DAILY [facility] Last Admin: 11/20/16 10:01 Dose: 325 mg Furosemide (Lasix Injection -) 100 mg IVPUSH BIDLASIX [facility] Last Admin: 11/20/16 06:12 Dose: Not Given Milrinone Lactate/Dextrose (Milrinone 20mg/100ml Ivpb -) 100 mls @ 5.222 mls/ hr IVPB TITR [facility] PRN Reason: 0.25 MCG/KG/MIN Last Admin: 11/20/16 02:27 Dose: 5.222 mls/hr Metolazone (Zaroxolyn -) 2.5 mg PO 0530,1330 [facility] Last Admin: 11/20/16 06:11 Dose: Not Given Morphine Sulfate (Morphine Injection -) 2 mg IVPUSH Q4H PRN PRN Reason: SHORTNESS OF BREATH Last Admin: 11/18/16 01:02 Dose: 2 mg Polyethylene Glycol (Miralax (For Daily Use) -) 17 gm PO DAILY [facility] Last Admin: 11/19/16 09:43 Dose: 17 gm Potassium Chloride (K-Dur -) 40 meq PO TID [facility] Last Admin: 11/20/16 06:10 Dose: 40 meq Ranitidine HCl (Zantac -) 150 mg PO DAILY [facility] Last Admin: 11/20/16 10:01 Dose: 150 mg - Objective Vital Signs: Vital Signs Temperature 99.2 F 11/20/16 06:00 Pulse Rate 90 11/20/16 09:00 Respiratory Rate 20 11/20/16 09:00 Blood Pressure 93/50 11/20/16 09:00 O2 Sat by Pulse Oximetry (%) 93 L 11/20/16 09:00 Constitutional: Yes: No Distress Cardiovascular: Yes: Regular Rate and Rhythm, Murmur Respiratory: Yes: Diminished Gastrointestinal: Yes: Normal Bowel Sounds, Soft, Distention (increased). No: Tenderness Edema: Yes Edema: LLE: 1+, RLE: 1+ Labs: CBC, BMP 11/19/16 06:00 11/19/16 06:00 INR, PTT INR 1.43 (0.82-1.09) H 11/10/16 05:20 Problem List - Problems (1) CHF (congestive heart failure) Code(s): I50.9 - HEART FAILURE, UNSPECIFIED Qualifiers: Congestive heart failure chronicity: acute on chronic (2) CKD (chronic kidney disease) Code(s): N18.9 - CHRONIC KIDNEY DISEASE, UNSPECIFIED Qualifiers: Chronic kidney disease stage: stage 3 (moderate) Qualified Code(s): N18.3 - Chronic kidney disease, stage 3 (moderate) (3) Anemia Code(s): D64.9 - ANEMIA, UNSPECIFIED Qualifiers: Anemia type: iron deficiency Iron deficiency anemia type: unspecified iron deficiency Qualified Code(s): D50.9 - Iron deficiency anemia, unspecified (4) CHF exacerbation Code(s): I50.9 - HEART FAILURE, UNSPECIFIED (5) COPD (chronic obstructive pulmonary disease) Code(s): J44.9 - CHRONIC OBSTRUCTIVE PULMONARY DISEASE, UNSPECIFIED Assessment/Plan Weight -- lost about a few ounces since yesterday On Lasix and Metalozone BID-- creatinine steady BIPAP as needed Afebrile On Milrinone drip CXR-- decreased congestion s/p therapeutic paracentesis spoke with daughter today continue with meds OOB PT eval Pt is DNR/DNI Prognosis guarded
[2016-11-20 11:51] LABS: ANION GAP 7 (8-16); CALCIUM 7.7 mg/dL (8.5-10.1); CO2 44 mmol/L (21-32); CREATININE 1.9 mg/dL (0.7-1.3); GLUCOSE,RANDOM 171 mg/dL (74-106)
[2016-11-20] MEDS: POLYETHYLENE GLYCOL 3350 119 GM BTL PO SCH (12:27)
[2016-11-20] MEDS ORDERED: PT OWN MED DRAWER 7, Y5N ONE (14:12)
[2016-11-20] MEDS: ATORVASTATIN CA 10 MG TABLET (FP) PO SCH (21:09)
[2016-11-21] MEDS: METOLAZONE 2.5 MG TABLET (FP) PO SCH ×2 (06:06→14:49)
[2016-11-21] MEDS: FUROSEMIDE 100 MG/10 ML INJECTABLE VIAL IVPUSH SCH ×2 (06:07→16:22)
[2016-11-21] MEDS: POTASSIUM CHLORIDE TABS 20 MEQ TABLET.ER (FP) PO SCH ×3 (06:10→21:39)
[2016-11-21 08:10] LABS: ANION GAP 5 (8-16); CALCIUM 8.1 mg/dL (8.5-10.1); CO2 43 mmol/L (21-32); CREATININE 1.8 mg/dL (0.7-1.3); GLUCOSE,RANDOM 103 mg/dL (74-106)
[2016-11-21] MEDS: ASCORBIC ACID 500 MG TABLET (FP) PO SCH (10:22)
[2016-11-21] MEDS: FERROUS SO4 325 MG TABLET (FP) PO SCH (10:22)
[2016-11-21] MEDS: RANITIDINE HCL 150 MG TABLET (FP) PO SCH (10:22)
[2016-11-21] MEDS: POLYETHYLENE GLYCOL 3350 119 GM BTL PO SCH (10:22)
[2016-11-21] MEDS: ALLOPURINOL 100 MG TABLET (FP) PO SCH (10:22)
--- NOTE | 2016-11-21 10:29 | PN ---
Progress Note, Physician Chief Complaint: no complaints noted low BP - Current Medication List Current Medications: Active Medications Acetaminophen (Tylenol -) 650 mg PO Q4H PRN PRN Reason: FEVER OR PAIN Allopurinol (Zyloprim -) 100 mg PO DAILY [facility] Last Admin: 11/21/16 10:22 Dose: 100 mg Ascorbic Acid (Vitamin C -) 500 mg PO DAILY [facility] Last Admin: 11/21/16 10:22 Dose: 500 mg Atorvastatin Calcium (Lipitor -) 10 mg PO HS [facility] Last Admin: 11/20/16 21:09 Dose: 10 mg Ferrous Sulfate (Feosol -) 325 mg PO DAILY [facility] Last Admin: 11/21/16 10:22 Dose: 325 mg Furosemide (Lasix Injection -) 100 mg IVPUSH BIDLASIX [facility] Last Admin: 11/21/16 06:07 Dose: Not Given Milrinone Lactate/Dextrose (Milrinone 20mg/100ml Ivpb -) 100 mls @ 6.789 mls/ hr IVPB TITR [facility] PRN Reason: 0.325 MCG/KG/MIN Last Admin: 11/20/16 19:30 Dose: 6.789 mls/hr Vasopressin 50 units/ Sodium (Chloride) 100 mls @ 24 mls/hr IVPB TITR [facility] PRN Reason: 0.2 UNITS/MIN Metolazone (Zaroxolyn -) 2.5 mg PO 0530,1330 [facility] Last Admin: 11/21/16 06:06 Dose: Not Given Polyethylene Glycol (Miralax (For Daily Use) -) 17 gm PO DAILY [facility] Last Admin: 11/21/16 10:22 Dose: 17 gm Potassium Chloride (K-Dur -) 40 meq PO TID [facility] Last Admin: 11/21/16 06:10 Dose: 40 meq Ranitidine HCl (Zantac -) 150 mg PO DAILY [facility] Last Admin: 11/21/16 10:22 Dose: 150 mg - Objective Vital Signs: Vital Signs Temperature 97.9 F 11/21/16 06:00 Pulse Rate 93 H 11/21/16 06:00 Respiratory Rate 18 11/21/16 06:00 Blood Pressure 83/63 11/21/16 06:00 O2 Sat by Pulse Oximetry (%) 95 11/21/16 06:00 Constitutional: Yes: No Distress, Calm Cardiovascular: Yes: Regular Rate and Rhythm, Murmur Respiratory: Yes: Diminished, Rhonchi Gastrointestinal: Yes: Normal Bowel Sounds, Soft, Distention. No: Tenderness Edema: Yes Edema: LLE: 1+, RLE: 1+ Labs: CBC, BMP 11/19/16 06:00 11/21/16 05:35 INR, PTT INR 1.43 (0.82-1.09) H 11/10/16 05:20 Problem List - Problems (1) CHF (congestive heart failure) Code(s): I50.9 - HEART FAILURE, UNSPECIFIED Qualifiers: Congestive heart failure chronicity: acute on chronic (2) CKD (chronic kidney disease) Code(s): N18.9 - CHRONIC KIDNEY DISEASE, UNSPECIFIED Qualifiers: Chronic kidney disease stage: stage 3 (moderate) Qualified Code(s): N18.3 - Chronic kidney disease, stage 3 (moderate) (3) Anemia Code(s): D64.9 - ANEMIA, UNSPECIFIED Qualifiers: Anemia type: iron deficiency Iron deficiency anemia type: unspecified iron deficiency Qualified Code(s): D50.9 - Iron deficiency anemia, unspecified (4) CHF exacerbation Code(s): I50.9 - HEART FAILURE, UNSPECIFIED (5) COPD (chronic obstructive pulmonary disease) Code(s): J44.9 - CHRONIC OBSTRUCTIVE PULMONARY DISEASE, UNSPECIFIED Assessment/Plan Weight -- gained On Lasix and Metalozone BID held due to low BP started on Vasopressin for low BP BIPAP as needed Afebrile On Milrinone drip repeat CXR s/p therapeutic paracentesis spoke with daughter today continue with meds OOB PT eval Pt is DNR/DNI Prognosis guarded
[2016-11-21] MEDS ORDERED: VASOPRESSIN 50 UNITS in SODIUM CHLORIDE 97.5 ML IVPB SCH (11:00)
[2016-11-21] MEDS: MILRINONE 20MG/100ML IVPB - 100 ML IVPB SCH (11:42)
--- NOTE | 2016-11-21 11:50 | PN ---
Progress Note (short form) - Note Progress Note: Chief Complaint: chf History of Present Illness: no sob no cp, palpit, syncope ex cigs - Current Medication List Active Medications Current Medications Generic Name Dose Route Start Last Admin Trade Name Lindy PRN Reason Stop Dose Admin Acetaminophen 650 mg 11/08/16 17:08 Tylenol - PO Q4H PRN FEVER OR PAIN Allopurinol 100 mg 11/09/16 10:00 11/21/16 10:22 Zyloprim - PO 100 mg DAILY [facility] Administration Ascorbic Acid 500 mg 11/09/16 10:00 11/21/16 10:22 Vitamin C - PO 500 mg DAILY [facility] Administration Atorvastatin Calcium 10 mg 11/08/16 22:00 11/20/16 21:09 Lipitor - PO 10 mg HS [facility] Administration Ferrous Sulfate 325 mg 11/09/16 10:00 11/21/16 10:22 Feosol - PO 325 mg DAILY [facility] Administration Furosemide 100 mg 11/19/16 10:21 11/21/16 06:07 Lasix Injection - IVPUSH Not Given BIDLASIX [facility] Milrinone Lactate/Dextrose 100 mls @ 6.789 mls/hr 11/20/16 10:44 11/21/16 11:42 Milrinone 20mg/100ml Ivpb - IVPB 6.789 mls/hr TITR [facility] Administration 0.325 MCG/KG/MIN Vasopressin 50 units/ Sodium 100 mls @ 2.4 mls/hr 11/21/16 11:00 11/21/16 11:42 Chloride IVPB 2.4 mls/hr TITR [facility] Administration 1.2 UNITS/HR Metolazone 2.5 mg 11/19/16 13:30 11/21/16 06:06 Zaroxolyn - PO Not Given 0530,1330 [facility] Polyethylene Glycol 17 gm 11/09/16 10:00 11/21/16 10:22 Miralax (For Daily Use) - PO 17 gm DAILY [facility] Administration Potassium Chloride 40 meq 11/19/16 14:00 11/21/16 06:10 K-Dur - PO 40 meq TID [facility] Administration Ranitidine HCl 150 mg 11/09/16 10:00 11/21/16 10:22 Zantac - PO 150 mg DAILY [facility] Administration - Objective Vital Signs: Vital Signs Temp 97.9 F 11/21/16 06:00 Pulse 82 11/21/16 11:42 Resp 18 11/21/16 06:00 BP 83/55 11/21/16 11:42 Pulse Ox 95 11/21/16 06:00 Intake & Output 11/20/16 11/20/16 11/21/16 11:59 23:59 11:59 Intake Total 502.4 905.2 440.4 Balance 502.4 905.2 440.4 Weight 151 lb 3.2 oz 154 lb 6.4 oz Intake: IV 62.4 105.2 80.4 Milrinone 20Mg/100Ml Ivpb 62.4 - 100 ml @ 0.25 MCG/KG/ MIN 5.222 mls/hr IVPB TITR [facility] Rx#:[id number] Milrinone 20Mg/100Ml Ivpb 55.2 80.4 - 100 ml @ 0.325 MCG/KG/ MIN 6.789 mls/hr IVPB TITR [facility] Rx#:[id number] SL 50 Oral 440 800 360 Other: Voiding Method Incontinent Incontinent Incontinent # Unmeasured Voids Void 2 2 2 Bowel Movement No No No Weight Measurement Method Patient Lift Scale Patient Lift Scale Constitutional: Yes: No Distress, Calm Eyes: No: Sclera Icterus HENT: No: Nasal Congestion Cardiovascular: Yes: Regular Rate and Rhythm, JVD (++ EJs), S1, S2, Other (PMI non diplaced) Respiratory: Yes: Regular, Diminished (bases). No: Accessory Muscle Use, Rales , Wheezes Gastrointestinal: Yes: Normal Bowel Sounds, Soft. No: Tenderness Musculoskeletal: Yes: Other (No kyphosis) Extremities: No: Cold Edema: Yes (1+ low pretib/ankles) Integumentary: No: Jaundice Neurological: Yes: Alert. No: Seizure Psychiatric: No: Agitated Labs: Laboratory Last Values WBC 9.9 K/mm3 (4.0-10.0) 11/19/16 06:00 RBC 3.77 M/mm3 (4.00-5.60) L 11/19/16 06:00 Hgb 8.5 GM/dL (11.7-16.9) L D 11/19/16 06:00 Hct 29.3 % (35.4-49) L 11/19/16 06:00 MCV 77.7 fl (80-96) L 11/19/16 06:00 MCH 22.6 pg (25.7-33.7) L 11/19/16 06:00 MCHC 29.1 g/dl (32.0-35.9) L 11/19/16 06:00 RDW 23.0 % (11.9-15.9) H 11/19/16 06:00 Plt Count 151 K/MM3 (134-434) D 11/19/16 06:00 MPV 8.5 fl (7.5-11.1) 11/19/16 06:00 Neutrophils % 74.8 % (42.8-82.8) 11/19/16 06:00 Lymphocytes % 13.1 % (8-40) 11/19/16 06:00 Monocytes % 11.0 % (3.8-10.2) H 11/19/16 06:00 Eosinophils % 0.9 % (0-4.5) 11/19/16 06:00 Basophils % 0.2 % (0-2.0) 11/19/16 06:00 Differential Comment Slide scanned 11/10/16 05:20 Platelet Estimate Adequate (NORMAL) 11/11/16 05:50 Platelet Comment No clumping noted 11/11/16 05:50 Polychromasia Few 11/11/16 05:50 Hypochromic-Microcytic 2+ 11/17/16 05:35 Anisocytosis 3+ 11/17/16 05:35 Microcytosis 1+ 11/17/16 05:35 Macrocytosis 2+ 11/17/16 05:35 Target Cells 2+ 11/17/16 05:35 Morphology Comment Slide scanned 11/10/16 05:20 INR 1.43 (0.82-1.09) H 11/10/16 05:20 Puncture Site Right radial 11/19/16 10:07 ABG pH 7.48 (7.35-7.45) H 11/19/16 10:07 ABG pCO2 at Pt Temp 59.5 mmHg (35-45) H 11/19/16 10:07 ABG pO2 at Pt Temp 141.0 mmHg (70-100) H D 11/19/16 10:07 ABG HCO3 44.0 meq/L (22-26) H* 11/19/16 10:07 ABG O2 Sat (Measured) 100.0 % (90-98.9) H* 11/19/16 10:07 ABG O2 Content 12.1 % vol (15-22) L 11/19/16 10:07 ABG Base Excess 18.1 meq/l (-2-2) H* 11/19/16 10:07 Louis Test Positive 11/19/16 10:07 O2 Delivery Device Non rebreather 11/19/16 10:07 Oxygen Flow Rate 100% 11/19/16 10:07 Sodium 142 mmol/L (136-145) 11/21/16 05:35 Potassium 4.2 mmol/L (3.5-5.1) 11/21/16 05:35 Chloride 94 mmol/L (98-107) L 11/21/16 05:35 Carbon Dioxide 43 mmol/L (21-32) H 11/21/16 05:35 Anion Gap 5 (8-16) L 11/21/16 05:35 BUN 83 mg/dL (7-18) H 11/21/16 05:35 Creatinine 1.8 mg/dL (0.7-1.3) H 11/21/16 05:35 Creat Clearance w eGFR 34.64 (>60) 11/19/16 06:00 Random Glucose 103 mg/dL (74-106) D 11/21/16 05:35 Calcium 8.1 mg/dL (8.5-10.1) L 11/21/16 05:35 Magnesium 2.6 mg/dL (1.8-2.4) H 11/18/16 05:35 Total Bilirubin 1.1 mg/dL (0.2-1.0) H 11/19/16 06:00 AST 26 U/L (15-37) D 11/19/16 06:00 ALT 14 U/L (12-78) 11/19/16 06:00 Alkaline Phosphatase 136 U/L (45-117) H 11/19/16 06:00 Creatine Kinase 20 IU/L (39-308) L 11/09/16 05:53 Troponin I 0.14 ng/ml (0.00-0.05) H 11/09/16 05:53 Total Protein 5.9 g/dl (6.4-8.2) L 11/19/16 06:00 Albumin 1.8 g/dl (3.4-5.0) L 11/19/16 06:00 Fluid Amylase 30 11/14/16 12:40 Peritoneal WBC 319 /mm3 11/14/16 12:40 Peritoneal RBC 2,188 /mm3 11/14/16 12:40 Periton Neutrophils 11 % 11/14/16 12:40 Periton Lymphocytes 36 % 11/14/16 12:40 Periton Mesothelial 13 % 11/14/16 12:40 Periton Macrophages 40 % 11/14/16 12:40 Peritoneal Tot Protein 3 gm/dL 11/14/16 12:40 Peritoneal Albumin 1 g/dL 11/14/16 12:40 Peritoneal LDH 74 IU/L 11/14/16 12:40 Peritoneal Glucose 157 mg/dL 11/14/16 12:40 Peritoneal Amylase 30 U/L 11/14/16 12:40 (tele: NSR, V-P/V-S; brief nsvt) cath 2012 all grafts patent (self to lad, svg to lcx, svg to rpda) Echo 07/2016: mod lve, sev reduced LV fn (global). mild rve with mild hypo ( severe TR, intrinsic RV fn likely more depressed), 1+ mr, severe tr, mod phtn, + pl effusion Echo 07/2015: sev lve, sev reduced lvef (global). grade 2 diastolic dysfunction. nl RV. mild connie. dilated ivc. mod mr, mod-sev tr, sev phtn, mild pr. Echo 08/03: sev LVE with severe decr EF; mild RV dil with moderate hypo; mod MR/ TR; RVSP >60 ecg 11/08/16: sr, vpaced, pvc cxr: chf improved slightly a/p: 76 yo ex smoker, with h/o CAD s/p CABG, ischemic CM with EF 25% s/p BiVICD with secondary severe pulmonary hypertension, prior CVA, HL, copd, CKD, bph, chronic iron deficiency anemia here with chf. isch CMP/acute systolic CHF: -08/2016 admitted here for chf needing milrinone/vasopressin/lasix -despite high doses of diuretic (torsemide 100 bid with metolazone at times) he reaccumulated volume and is now back in chf exacerbation (goal wt 130 lbs, here now at 150) -started lasix 80 iv bid here -wt not accurate, 150 yest, 170 today -given was on equivalent of 200mg po daily lasix at home (i.e. torsemide 100mg) , will double that dose = lasix 100mg iv bid. -suspect he will need metolazone added on to achieve adequate diuresis-- reassess in am -may need milrinone +/- vasopressin if does not respond to iv lasix alone -not on bb, aceI at home due to prior side effects of hypotension, dizziness-- deferring now given low bp's still -has BiV icd -pt's clinical course and intolerance of CHF meds (bb/reno) suggests he is stage D/end-stage CHF--suggest goals of care be d/w'd family, and home inotropes infusion (palliative) be considered--will defer to dr aparicio pt's outpt [employer] -11/10: Weight down to 169#, Cr stable at 1.4. Continue lasix 80mg BID -11/11: Weight at 169#, Creat stable. remains volume up on exam. Will add metolazone 2.5mg before AM lasix dose. -11/12: renal fxn and wt remained unchanged on lasix 80 IV BID, until metolazone (2.5) given yest--wt down today, renal fxn and lytes stable. cont lasix (incr to 100 iv bid), with metolazone 2.5 qd -11/13: continue current lasix 100 bid with metolazone. If still no sig decrease in wt tomorrow may need to add milrinone. Can also d/w IR about possible paracentesis to help remove volume. -11/14: wt not decreasing much and cr up a bit today. Will have paracentesis today. If wt/cr not improving tomorrow then will start on milrinone. -11/15: had large vol paracentesis yesterday, vol down today. Will cont with iv lasix and metolazone for today. If wt/cr not improving tomorrow then will start on milrinone. -11/16: no further wt decline since paracentesis, remains vol up with rising cr as well. Will now start milrinone in addition to current lasix iv/metolazone. If bp too low with milrinone may need vasopressin as well. -11/17: on milrinone gtt 0.375; wt down 2 lbs, bun down but creat up slightly. JVD signif improved vs previous, though remains elevated. very frequent NSVT runs on tele. given pt's age and GFR 30s, will reduce milrinone to 0.25mcg/kg/ min. cont lasix 100 iv bid and metolazone 2.5. rpt CXR in am--hope to see effusions signif improving -11/18: wt down, cr stable/improved. CXR with minor improvement. Cont same milrinone/diuresis. -11/19: CXR reviewed: definite improvement though signif pulm edema/effusions persist. wt up 1 lb today, hypoxic with mild sob--back on FM this AM. neck veins way up again today. renal fxn stable. will incr diuresis (metolazone bid today), cont lasix 100 iv bid with milrinone same -hypotensive with low dose metopr succinate 12.5 qd here--med d/c'd -d/w daughter about possible need for home milrinone in fusion, she is agreeable if needed. Will see how does on this admit and decide if he may need eval by chf team at [facility] to set up home milrinone. - 11/20: no further weight gain, but no significant loss. Now diuresis being hindered by low bp's. May need uptitration of milrinone to support bp ( decreased dose from 0.375 b/c of frequent nsvt). Will increase dose slightly up to 0.325. aggressive lyte repletion. no bmp today, will repeat. -11/21: still overloaded but wt not decreasing because bp has been too low and missing several lasix doses. Will add vasopressin today to help raise bp so that he can be diueresed effectively with lasix/milrinone. V Tach: - nsvt seen on prior ICD checks and on tele here in past as well. - replete K/Mag aggressively (usual goals) - freq runs, some longish (though non-sustained) - bp too low for bb CAD s/p h/o CABG 2006 - have been holding ASA, plavix due to anemia. - trop borderline intermediate range and no change x 2, no clinical signs ACS here -cont statin anemia -recent admits for anemia, responded to prbcs and hgb stable. GI w/u deferred then 2/2 chf. He has been off asa and plavix and hgb remains stable. h/o CVA: -was on ASA, plavix --> on hold as above. PAT/PSVT - brief episodes on tele here in past manjinder: -likely cardiorenal syndrome -diuresis plan as above, trend cr
[2016-11-21 12:01] LABS: BASOPHIL 0.3 % (0-2.0); EOSINOPHIL 1.4 % (0-4.5); MCH 22.7 pg (25.7-33.7); MCHC 28.4 g/dl (32.0-35.9); MEAN PLT VOLUME 8.8 fl (7.5-11.1); NEUTROPHILS 72.8 % (42.8-82.8); PLATELET COUNT 156 K/MM3 (134-434); RDW 23.4 % (11.9-15.9); WHITE BLOOD COUNT 7.8 K/mm3 (4.0-10.0)
[2016-11-21 12:51] LABS: ANISOCYTOSIS 2+; HYPOCHROMIA 2+; PLATELET ESTIMATE ADEQUATE (NORMAL); POIKILOCYTOSIS 1+
[2016-11-21] MEDS: VASOPRESSIN 50 UNITS in SODIUM CHLORIDE 97.5 ML IVPB SCH (17:11)
[2016-11-21] MEDS: ATORVASTATIN CA 10 MG TABLET (FP) PO SCH (21:38)
[2016-11-22] MEDS: MILRINONE 20MG/100ML IVPB - 100 ML IVPB SCH ×3 (01:50→16:05)
[2016-11-22] MEDS: METOLAZONE 2.5 MG TABLET (FP) PO SCH ×2 (05:30→15:42)
[2016-11-22] MEDS ORDERED: PT OWN MED DRAWER 7, Y5N ONE (05:57)
[2016-11-22] MEDS: FUROSEMIDE 100 MG/10 ML INJECTABLE VIAL IVPUSH SCH ×2 (06:03→16:34)
[2016-11-22] MEDS: POTASSIUM CHLORIDE TABS 20 MEQ TABLET.ER (FP) PO SCH ×3 (06:04→21:10)
[2016-11-22 07:44] LABS: MCH 23.2 pg (25.7-33.7); MCHC 29.2 g/dl (32.0-35.9); MEAN CELL VOLUME 79.3 fl (80-96); MEAN PLT VOLUME 8.7 fl (7.5-11.1); PLATELET COUNT 154 K/MM3 (134-434); RDW 23.6 % (11.9-15.9); WHITE BLOOD COUNT 8.5 K/mm3 (4.0-10.0)
[2016-11-22 08:41] LABS: ALBUMIN 1.9 g/dl (3.4-5.0); ALK PHOS 223 U/L (45-117); ANION GAP 7 (8-16); BILIRUBIN,TOTAL 0.9 mg/dL (0.2-1.0); CALCIUM 8.3 mg/dL (8.5-10.1); CO2 42 mmol/L (21-32); CREATININE 1.6 mg/dL (0.7-1.3); GLUCOSE,RANDOM 144 mg/dL (74-106); SGOT/AST 83 U/L (15-37); SGPT/ALT 35 U/L (12-78); TOT PROT 6.2 g/dl (6.4-8.2)
--- NOTE | 2016-11-22 10:14 | PN ---
Progress Note (short form) - Note Progress Note: Chief Complaint: chf History of Present Illness: no sob no cp, palpit, syncope ex cigs - Current Medication List Active Medications Current Medications Generic Name Dose Route Start Last Admin Trade Name Lindy PRN Reason Stop Dose Admin Acetaminophen 650 mg 11/08/16 17:08 11/22/16 02:12 Tylenol - PO 650 mg Q4H PRN Administration FEVER OR PAIN Allopurinol 100 mg 11/09/16 10:00 11/21/16 10:22 Zyloprim - PO 100 mg DAILY [facility] Administration Ascorbic Acid 500 mg 11/09/16 10:00 11/21/16 10:22 Vitamin C - PO 500 mg DAILY [facility] Administration Atorvastatin Calcium 10 mg 11/08/16 22:00 11/21/16 21:38 Lipitor - PO 10 mg HS [facility] Administration Ferrous Sulfate 325 mg 11/09/16 10:00 11/21/16 10:22 Feosol - PO 325 mg DAILY [facility] Administration Furosemide 100 mg 11/19/16 10:21 11/22/16 06:03 Lasix Injection - IVPUSH 100 mg BIDLASIX [facility] Administration Milrinone Lactate/Dextrose 100 mls @ 6.789 mls/hr 11/20/16 10:44 11/22/16 01:50 Milrinone 20mg/100ml Ivpb - IVPB 6.789 mls/hr TITR [facility] Administration 0.325 MCG/KG/MIN Vasopressin 50 units/ Sodium 100 mls @ 4.8 mls/hr 11/21/16 17:01 11/21/16 17:11 Chloride IVPB 4.8 mls/hr TITR [facility] Administration 2.4 UNITS/HR Metolazone 2.5 mg 11/19/16 13:30 11/22/16 05:30 Zaroxolyn - PO 2.5 mg 0530,1330 [facility] Administration Polyethylene Glycol 17 gm 11/09/16 10:00 11/21/16 10:22 Miralax (For Daily Use) - PO 17 gm DAILY [facility] Administration Potassium Chloride 40 meq 11/19/16 14:00 11/22/16 06:04 K-Dur - PO 40 meq TID [facility] Administration Ranitidine HCl 150 mg 11/09/16 10:00 11/21/16 10:22 Zantac - PO 150 mg DAILY [facility] Administration - Objective Vital Signs: Vital Signs Temp 97.7 F 11/22/16 06:00 Pulse 82 11/22/16 06:00 Resp 18 11/22/16 06:00 BP 98/71 11/22/16 06:00 Pulse Ox 96 11/22/16 06:00 Intake & Output 11/21/16 11/21/16 11/22/16 11:59 23:59 11:59 Intake Total 730.8 240 428.0 Balance 730.8 240 428.0 Weight 154 lb 6.4 oz 154 lb 4 oz Intake: IV 210.8 188.0 Milrinone 20Mg/100Ml Ivpb 160.8 80.4 - 100 ml @ 0.325 MCG/KG/ MIN 6.789 mls/hr IVPB TITR [facility] Rx#:[id number] Pitressin - 50 Units In 57.6 Normal Saline - 97.5 ml @ 2.4 UNITS/HR 4.8 mls/hr IVPB TITR [facility] Rx#: [id number] SL 50 50 Oral 520 240 240 Other: Voiding Method Incontinent Incontinent Diaper # Unmeasured Voids Void 2 2 3 Bowel Movement No Yes: large BM Yes: huge # Bowel Movements 1 1 Weight Measurement Method Patient Lift Scale Patient Lift Scale Constitutional: Yes: No Distress, Calm Eyes: No: Sclera Icterus HENT: No: Nasal Congestion Cardiovascular: Yes: Regular Rate and Rhythm, JVD (++ EJs), S1, S2, Other (PMI non diplaced) Respiratory: Yes: Regular, Diminished (bases). No: Accessory Muscle Use, Rales , Wheezes Gastrointestinal: Yes: Normal Bowel Sounds, Soft. No: Tenderness Musculoskeletal: Yes: Other (No kyphosis) Extremities: No: Cold Edema: Yes (1+ low pretib/ankles) Integumentary: No: Jaundice Neurological: Yes: Alert. No: Seizure Psychiatric: No: Agitated Labs: Laboratory Last Values WBC 8.5 K/mm3 (4.0-10.0) 11/22/16 05:35 RBC 3.99 M/mm3 (4.00-5.60) L 11/22/16 05:35 Hgb 9.3 GM/dL (11.7-16.9) L 11/22/16 05:35 Hct 31.7 % (35.4-49) L 11/22/16 05:35 MCV 79.3 fl (80-96) L 11/22/16 05:35 MCH 23.2 pg (25.7-33.7) L 11/22/16 05:35 MCHC 29.2 g/dl (32.0-35.9) L 11/22/16 05:35 RDW 23.6 % (11.9-15.9) H 11/22/16 05:35 Plt Count 154 K/MM3 (134-434) 11/22/16 05:35 MPV 8.7 fl (7.5-11.1) 11/22/16 05:35 Neutrophils % 72.8 % (42.8-82.8) 11/21/16 10:30 Lymphocytes % 13.1 % (8-40) 11/21/16 10:30 Monocytes % 12.4 % (3.8-10.2) H 11/21/16 10:30 Eosinophils % 1.4 % (0-4.5) 11/21/16 10:30 Basophils % 0.3 % (0-2.0) 11/21/16 10:30 Differential Comment Slide scanned 11/10/16 05:20 Platelet Estimate Adequate (NORMAL) 11/21/16 10:30 Platelet Comment No clumping noted 11/11/16 05:50 Polychromasia Few 11/11/16 05:50 Hypochromic-Microcytic 2+ 11/21/16 10:30 Poikilocytosis 1+ 11/21/16 10:30 Anisocytosis 2+ 11/21/16 10:30 Microcytosis 1+ 11/17/16 05:35 Macrocytosis 2+ 11/17/16 05:35 Target Cells 2+ 11/17/16 05:35 Morphology Comment Slide scanned 11/10/16 05:20 INR 1.43 (0.82-1.09) H 11/10/16 05:20 Puncture Site Right radial 11/19/16 10:07 ABG pH 7.48 (7.35-7.45) H 11/19/16 10:07 ABG pCO2 at Pt Temp 59.5 mmHg (35-45) H 11/19/16 10:07 ABG pO2 at Pt Temp 141.0 mmHg (70-100) H D 11/19/16 10:07 ABG HCO3 44.0 meq/L (22-26) H* 11/19/16 10:07 ABG O2 Sat (Measured) 100.0 % (90-98.9) H* 11/19/16 10:07 ABG O2 Content 12.1 % vol (15-22) L 11/19/16 10:07 ABG Base Excess 18.1 meq/l (-2-2) H* 11/19/16 10:07 Louis Test Positive 11/19/16 10:07 O2 Delivery Device Non rebreather 11/19/16 10:07 Oxygen Flow Rate 100% 11/19/16 10:07 Sodium 143 mmol/L (136-145) 11/22/16 05:35 Potassium 4.3 mmol/L (3.5-5.1) 11/22/16 05:35 Chloride 94 mmol/L (98-107) L 11/22/16 05:35 Carbon Dioxide 42 mmol/L (21-32) H 11/22/16 05:35 Anion Gap 7 (8-16) L 11/22/16 05:35 BUN 80 mg/dL (7-18) H 11/22/16 05:35 Creatinine 1.6 mg/dL (0.7-1.3) H 11/22/16 05:35 Creat Clearance w eGFR 42.24 (>60) 11/22/16 05:35 Random Glucose 144 mg/dL (74-106) H D 11/22/16 05:35 Calcium 8.3 mg/dL (8.5-10.1) L 11/22/16 05:35 Magnesium 2.6 mg/dL (1.8-2.4) H 11/18/16 05:35 Total Bilirubin 0.9 mg/dL (0.2-1.0) 11/22/16 05:35 AST 83 U/L (15-37) H D 11/22/16 05:35 ALT 35 U/L (12-78) D 11/22/16 05:35 Alkaline Phosphatase 223 U/L (45-117) H D 11/22/16 05:35 Creatine Kinase 20 IU/L (39-308) L 11/09/16 05:53 Troponin I 0.14 ng/ml (0.00-0.05) H 11/09/16 05:53 Total Protein 6.2 g/dl (6.4-8.2) L 11/22/16 05:35 Albumin 1.9 g/dl (3.4-5.0) L 11/22/16 05:35 Fluid Amylase 30 11/14/16 12:40 Peritoneal WBC 319 /mm3 11/14/16 12:40 Peritoneal RBC 2,188 /mm3 11/14/16 12:40 Periton Neutrophils 11 % 11/14/16 12:40 Periton Lymphocytes 36 % 11/14/16 12:40 Periton Mesothelial 13 % 11/14/16 12:40 Periton Macrophages 40 % 11/14/16 12:40 Peritoneal Tot Protein 3 gm/dL 11/14/16 12:40 Peritoneal Albumin 1 g/dL 11/14/16 12:40 Peritoneal LDH 74 IU/L 11/14/16 12:40 Peritoneal Glucose 157 mg/dL 11/14/16 12:40 Peritoneal Amylase 30 U/L 11/14/16 12:40 (tele: NSR, V-P/V-S; brief nsvt) cath 2012 all grafts patent (self to lad, svg to lcx, svg to rpda) Echo 07/2016: mod lve, sev reduced LV fn (global). mild rve with mild hypo ( severe TR, intrinsic RV fn likely more depressed), 1+ mr, severe tr, mod phtn, + pl effusion Echo 07/2015: sev lve, sev reduced lvef (global). grade 2 diastolic dysfunction. nl RV. mild connie. dilated ivc. mod mr, mod-sev tr, sev phtn, mild pr. Echo 08/03: sev LVE with severe decr EF; mild RV dil with moderate hypo; mod MR/ TR; RVSP >60 ecg 11/08/16: sr, vpaced, pvc cxr: chf a/p: 76 yo ex smoker, with h/o CAD s/p CABG, ischemic CM with EF 25% s/p BiVICD with secondary severe pulmonary hypertension, prior CVA, HL, copd, CKD, bph, chronic iron deficiency anemia here with chf. isch CMP/acute systolic CHF: -08/2016 admitted here for chf needing milrinone/vasopressin/lasix -despite high doses of diuretic (torsemide 100 bid with metolazone at times) he reaccumulated volume and is now back in chf exacerbation (goal wt 130 lbs, here now at 150) -started lasix 80 iv bid here -wt not accurate, 150 yest, 170 today -given was on equivalent of 200mg po daily lasix at home (i.e. torsemide 100mg) , will double that dose = lasix 100mg iv bid. -suspect he will need metolazone added on to achieve adequate diuresis-- reassess in am -may need milrinone +/- vasopressin if does not respond to iv lasix alone -not on bb, aceI at home due to prior side effects of hypotension, dizziness-- deferring now given low bp's still -has BiV icd -pt's clinical course and intolerance of CHF meds (bb/reno) suggests he is stage D/end-stage CHF--suggest goals of care be d/w'd family, and home inotropes infusion (palliative) be considered--will defer to dr aparicio pt's outpt [employer] physical education [employer] -11/10: Weight down to 169#, Cr stable at 1.4. Continue lasix 80mg BID -11/11: Weight at 169#, Creat stable. remains volume up on exam. Will add metolazone 2.5mg before AM lasix dose. -11/12: renal fxn and wt remained unchanged on lasix 80 IV BID, until metolazone (2.5) given yest--wt down today, renal fxn and lytes stable. cont lasix (incr to 100 iv bid), with metolazone 2.5 qd -11/13: continue current lasix 100 bid with metolazone. If still no sig decrease in wt tomorrow may need to add milrinone. Can also d/w IR about possible paracentesis to help remove volume. -11/14: wt not decreasing much and cr up a bit today. Will have paracentesis today. If wt/cr not improving tomorrow then will start on milrinone. -11/15: had large vol paracentesis yesterday, vol down today. Will cont with iv lasix and metolazone for today. If wt/cr not improving tomorrow then will start on milrinone. -11/16: no further wt decline since paracentesis, remains vol up with rising cr as well. Will now start milrinone in addition to current lasix iv/metolazone. If bp too low with milrinone may need vasopressin as well. -11/17: on milrinone gtt 0.375; wt down 2 lbs, bun down but creat up slightly. JVD signif improved vs previous, though remains elevated. very frequent NSVT runs on tele. given pt's age and GFR 30s, will reduce milrinone to 0.25mcg/kg/ min. cont lasix 100 iv bid and metolazone 2.5. rpt CXR in am--hope to see effusions signif improving -11/18: wt down, cr stable/improved. CXR with minor improvement. Cont same milrinone/diuresis. -11/19: CXR reviewed: definite improvement though signif pulm edema/effusions persist. wt up 1 lb today, hypoxic with mild sob--back on FM this AM. neck veins way up again today. renal fxn stable. will incr diuresis (metolazone bid today), cont lasix 100 iv bid with milrinone same -hypotensive with low dose metopr succinate 12.5 qd here--med d/c'd -d/w daughter about possible need for home milrinone in fusion, she is agreeable if needed. Will see how does on this admit and decide if he may need eval by chf team at [facility] to set up home milrinone. - 11/20: no further weight gain, but no significant loss. Now diuresis being hindered by low bp's. May need uptitration of milrinone to support bp ( decreased dose from 0.375 b/c of frequent nsvt). Will increase dose slightly up to 0.325. aggressive lyte repletion. no bmp today, will repeat. -11/21: still overloaded but wt not decreasing because bp has been too low and missing several lasix doses. Will add vasopressin today to help raise bp so that he can be diueresed effectively with lasix/milrinone. -11/22: after vasopressin added his bp has been better and now will be able to get lasix/metalazone today, monitor response. V Tach: - nsvt seen on prior ICD checks and on tele here in past as well. - replete K/Mag aggressively (usual goals) - freq runs, some longish (though non-sustained) - bp too low for bb CAD s/p h/o CABG 2006 - have been holding ASA, plavix due to anemia. - trop borderline intermediate range and no change x 2, no clinical signs ACS here -cont statin anemia -recent admits for anemia, responded to prbcs and hgb stable. GI w/u deferred then 2/2 chf. He has been off asa and plavix and hgb remains stable. h/o CVA: -was on ASA, plavix --> on hold as above. PAT/PSVT - brief episodes on tele here in past manjinder: -likely cardiorenal syndrome -diuresis plan as above, trend cr
[2016-11-22] MEDS: FERROUS SO4 325 MG TABLET (FP) PO SCH (10:46)
[2016-11-22] MEDS: ALLOPURINOL 100 MG TABLET (FP) PO SCH (10:48)
[2016-11-22] MEDS: RANITIDINE HCL 150 MG TABLET (FP) PO SCH (10:48)
[2016-11-22] MEDS: ASCORBIC ACID 500 MG TABLET (FP) PO SCH (10:48)
[2016-11-22] MEDS: VASOPRESSIN 50 UNITS in SODIUM CHLORIDE 97.5 ML IVPB SCH (10:50)
--- NOTE | 2016-11-22 11:18 | PN ---
Progress Note, Physician Chief Complaint: no complaints BP better on Vasopressin Lasix resumed - Current Medication List Current Medications: Active Medications Acetaminophen (Tylenol -) 650 mg PO Q4H PRN PRN Reason: FEVER OR PAIN Last Admin: 11/22/16 02:12 Dose: 650 mg Allopurinol (Zyloprim -) 100 mg PO DAILY [facility] Last Admin: 11/22/16 10:48 Dose: 100 mg Ascorbic Acid (Vitamin C -) 500 mg PO DAILY [facility] Last Admin: 11/22/16 10:48 Dose: 500 mg Atorvastatin Calcium (Lipitor -) 10 mg PO HS [facility] Last Admin: 11/21/16 21:38 Dose: 10 mg Ferrous Sulfate (Feosol -) 325 mg PO DAILY [facility] Last Admin: 11/22/16 10:46 Dose: 325 mg Furosemide (Lasix Injection -) 100 mg IVPUSH BIDLASIX [facility] Last Admin: 11/22/16 06:03 Dose: 100 mg Milrinone Lactate/Dextrose (Milrinone 20mg/100ml Ivpb -) 100 mls @ 6.789 mls/ hr IVPB TITR [facility] PRN Reason: 0.325 MCG/KG/MIN Last Admin: 11/22/16 10:54 Dose: Not Given Vasopressin 50 units/ Sodium (Chloride) 100 mls @ 4.8 mls/hr IVPB TITR [facility] PRN Reason: 2.4 UNITS/HR Last Admin: 11/22/16 10:50 Dose: 4.8 mls/hr Metolazone (Zaroxolyn -) 2.5 mg PO 0530,1330 [facility] Last Admin: 11/22/16 05:30 Dose: 2.5 mg Polyethylene Glycol (Miralax (For Daily Use) -) 17 gm PO DAILY [facility] Last Admin: 11/21/16 10:22 Dose: 17 gm Potassium Chloride (K-Dur -) 40 meq PO TID [facility] Last Admin: 11/22/16 06:04 Dose: 40 meq Ranitidine HCl (Zantac -) 150 mg PO DAILY [facility] Last Admin: 11/22/16 10:48 Dose: 150 mg - Objective Vital Signs: Vital Signs Temperature 97.7 F 11/22/16 06:00 Pulse Rate 93 H 11/22/16 10:50 Respiratory Rate 18 11/22/16 06:00 Blood Pressure 96/58 11/22/16 10:50 O2 Sat by Pulse Oximetry (%) 96 11/22/16 06:00 Constitutional: Yes: No Distress, Calm Cardiovascular: Yes: Regular Rate and Rhythm, Murmur Respiratory: Yes: Diminished. No: Rales, Rhonchi Gastrointestinal: Yes: Normal Bowel Sounds, Soft, Distention (decreased). No: Tenderness Edema: Yes Edema: LLE: Trace, RLE: Trace Neurological: Yes: Alert Labs: CBC, BMP 11/22/16 05:35 11/22/16 05:35 INR, PTT INR 1.43 (0.82-1.09) H 11/10/16 05:20 Problem List - Problems (1) CHF (congestive heart failure) Code(s): I50.9 - HEART FAILURE, UNSPECIFIED Qualifiers: Congestive heart failure chronicity: acute on chronic (2) CKD (chronic kidney disease) Code(s): N18.9 - CHRONIC KIDNEY DISEASE, UNSPECIFIED Qualifiers: Chronic kidney disease stage: stage 3 (moderate) Qualified Code(s): N18.3 - Chronic kidney disease, stage 3 (moderate) (3) Anemia Code(s): D64.9 - ANEMIA, UNSPECIFIED Qualifiers: Anemia type: iron deficiency Iron deficiency anemia type: unspecified iron deficiency Qualified Code(s): D50.9 - Iron deficiency anemia, unspecified (4) CHF exacerbation Code(s): I50.9 - HEART FAILURE, UNSPECIFIED (5) COPD (chronic obstructive pulmonary disease) Code(s): J44.9 - CHRONIC OBSTRUCTIVE PULMONARY DISEASE, UNSPECIFIED Assessment/Plan Weight -- not much loss On Lasix and Metalozone BID -- resumed on Vasopressin for low BP -- improving BIPAP as needed Afebrile On Milrinone drip s/p therapeutic paracentesis spoke with daughter today continue with meds OOB PT eval Pt is DNR/DNI Prognosis guarded repeat CXR -- worsening congestion
[2016-11-22] MEDS: POLYETHYLENE GLYCOL 3350 119 GM BTL PO SCH ×2 (11:34→11:48)
[2016-11-22] MEDS: ATORVASTATIN CA 10 MG TABLET (FP) PO SCH (21:10)
[2016-11-23] MEDS: METOLAZONE 2.5 MG TABLET (FP) PO SCH ×2 (05:25→13:49)
[2016-11-23] MEDS: POTASSIUM CHLORIDE TABS 20 MEQ TABLET.ER (FP) PO SCH ×3 (05:25→21:55)
[2016-11-23] MEDS: FUROSEMIDE 100 MG/10 ML INJECTABLE VIAL IVPUSH SCH ×2 (06:05→14:06)
[2016-11-23] MEDS: MILRINONE 20MG/100ML IVPB - 100 ML IVPB SCH (06:48)
[2016-11-23 08:01] LABS: MCH 22.8 pg (25.7-33.7); MCHC 28.7 g/dl (32.0-35.9); MEAN CELL VOLUME 79.3 fl (80-96); MEAN PLT VOLUME 8.9 fl (7.5-11.1); PLATELET COUNT 156 K/MM3 (134-434); WHITE BLOOD COUNT 9.6 K/mm3 (4.0-10.0)
[2016-11-23 08:57] LABS: ANION GAP 7 (8-16); CALCIUM 8.6 mg/dL (8.5-10.1); CO2 42 mmol/L (21-32); CREATININE 1.5 mg/dL (0.7-1.3); GLUCOSE,RANDOM 114 mg/dL (74-106)
--- NOTE | 2016-11-23 09:05 | PN ---
Progress Note (short form) - Note Progress Note: Pt seen/ examined chart reviewed on vasopressin now alert and awake no complains feels ok Vital Signs Temp 98.8 F 11/23/16 06:00 Pulse 96 H 11/23/16 06:00 Resp 20 11/23/16 06:00 BP 97/55 11/23/16 06:00 Pulse Ox 94 L 11/23/16 06:00 Intake & Output 11/22/16 11/22/16 11/23/16 11:59 23:59 11:59 Intake Total 428.0 655.1 448.0 Balance 428.0 655.1 448.0 Weight 154 lb 4 oz 153 lb 6.4 oz Intake: IV 188.0 115.1 148.0 Milrinone 20Mg/100Ml Ivpb 80.4 61.9 80.4 - 100 ml @ 0.325 MCG/KG/ MIN 6.789 mls/hr IVPB TITR [facility] Rx#:[id number] Pitressin - 50 Units In 57.6 43.2 57.6 Normal Saline - 97.5 ml @ 2.4 UNITS/HR 4.8 mls/hr IVPB TITR [facility] Rx#: [id number] SL 50 10 10 IVPB 100 100 Oral 240 440 200 Other: Voiding Method Diaper Incontinent Diaper # Unmeasured Voids Void 3 2 2 Bowel Movement Yes: huge No No # Bowel Movements 1 Weight Measurement Method Patient Lift Scale Patient Lift Scale Active Medications Acetaminophen (Tylenol -) 650 mg PO Q4H PRN PRN Reason: FEVER OR PAIN Last Admin: 11/22/16 02:12 Dose: 650 mg Allopurinol (Zyloprim -) 100 mg PO DAILY [facility] Last Admin: 11/22/16 10:48 Dose: 100 mg Ascorbic Acid (Vitamin C -) 500 mg PO DAILY [facility] Last Admin: 11/22/16 10:48 Dose: 500 mg Atorvastatin Calcium (Lipitor -) 10 mg PO HS [facility] Last Admin: 11/22/16 21:10 Dose: 10 mg Ferrous Sulfate (Feosol -) 325 mg PO DAILY [facility] Last Admin: 11/22/16 10:46 Dose: 325 mg Furosemide (Lasix Injection -) 100 mg IVPUSH BIDLASIX [facility] Last Admin: 11/23/16 06:05 Dose: 100 mg Milrinone Lactate/Dextrose (Milrinone 20mg/100ml Ivpb -) 100 mls @ 6.789 mls/ hr IVPB TITR [facility] PRN Reason: 0.325 MCG/KG/MIN Last Admin: 11/23/16 06:48 Dose: 6.789 mls/hr Vasopressin 50 units/ Sodium (Chloride) 100 mls @ 4.8 mls/hr IVPB TITR [facility] PRN Reason: 2.4 UNITS/HR Last Admin: 11/22/16 10:50 Dose: 4.8 mls/hr Metolazone (Zaroxolyn -) 2.5 mg PO 0530,1330 [facility] Last Admin: 11/23/16 05:25 Dose: 2.5 mg Polyethylene Glycol (Miralax (For Daily Use) -) 17 gm PO DAILY [facility] Last Admin: 11/22/16 11:48 Dose: Not Given Potassium Chloride (K-Dur -) 40 meq PO TID [facility] Last Admin: 11/23/16 05:25 Dose: 40 meq Ranitidine HCl (Zantac -) 150 mg PO DAILY [facility] Last Admin: 11/22/16 10:48 Dose: 150 mg CBC, BMP 11/23/16 05:35 11/23/16 05:35 Physical Exam. Constitutional: Yes: No Distress, Comfortable Cardiovascular: Yes: Regular Rate and Rhythm, Murmur Respiratory: Yes: Diminished. No: Rales, Rhonchi Gastrointestinal: Yes: Normal Bowel Sounds, Soft, Distention (decreased). No: Tenderness Edema: Yes Edema: LLE: Trace, RLE: Trace Neurological: Yes: Alert Problem List - Problems (1) CHF (congestive heart failure) Code(s): I50.9 - HEART FAILURE, UNSPECIFIED Qualifiers: Congestive heart failure chronicity: acute on chronic (2) CKD (chronic kidney disease) Code(s): N18.9 - CHRONIC KIDNEY DISEASE, UNSPECIFIED Qualifiers: Chronic kidney disease stage: stage 3 (moderate) Qualified Code(s): N18.3 - Chronic kidney disease, stage 3 (moderate) (3) Anemia Code(s): D64.9 - ANEMIA, UNSPECIFIED Qualifiers: Anemia type: iron deficiency Iron deficiency anemia type: unspecified iron deficiency Qualified Code(s): D50.9 - Iron deficiency anemia, unspecified (4) CHF exacerbation Code(s): I50.9 - HEART FAILURE, UNSPECIFIED (5) COPD (chronic obstructive pulmonary disease) Code(s): J44.9 - CHRONIC OBSTRUCTIVE PULMONARY DISEASE, UNSPECIFIED Assessment/Plan overall stable continue with meds prognosis remains poor end stage heart diseas OOB PT eval Pt is DNR/DNI Discussed with Dr. Alston also today. will follow Problem List - Problems (1) Anemia Code(s): D64.9 - ANEMIA, UNSPECIFIED Qualifiers: Anemia type: iron deficiency Iron deficiency anemia type: unspecified iron deficiency Qualified Code(s): D50.9 - Iron deficiency anemia, unspecified (2) CHF exacerbation Code(s): I50.9 - HEART FAILURE, UNSPECIFIED (3) Pacemaker Code(s): Z95.0 - PRESENCE OF CARDIAC PACEMAKER (4) Ascites Code(s): R18.8 - OTHER ASCITES
[2016-11-23] MEDS: ASCORBIC ACID 500 MG TABLET (FP) PO SCH (09:44)
[2016-11-23] MEDS: ALLOPURINOL 100 MG TABLET (FP) PO SCH (09:44)
[2016-11-23] MEDS: RANITIDINE HCL 150 MG TABLET (FP) PO SCH (09:44)
[2016-11-23] MEDS: POLYETHYLENE GLYCOL 3350 119 GM BTL PO SCH (09:45)
[2016-11-23] MEDS: FERROUS SO4 325 MG TABLET (FP) PO SCH (09:45)
[2016-11-23] MEDS: VASOPRESSIN 50 UNITS in SODIUM CHLORIDE 97.5 ML IVPB SCH (09:45)
--- NOTE | 2016-11-23 10:18 | PN ---
Progress Note (short form) - Note Progress Note: Chief Complaint: chf History of Present Illness: no sob no cp, palpit, syncope ex cigs - Current Medication List Current Medications Generic Name Dose Route Start Last Admin Trade Name Lindy PRN Reason Stop Dose Admin Acetaminophen 650 mg 11/08/16 17:08 11/22/16 02:12 Tylenol - PO 650 mg Q4H PRN Administration FEVER OR PAIN Allopurinol 100 mg 11/09/16 10:00 11/23/16 09:44 Zyloprim - PO 100 mg DAILY [facility] Administration Ascorbic Acid 500 mg 11/09/16 10:00 11/23/16 09:44 Vitamin C - PO 500 mg DAILY [facility] Administration Atorvastatin Calcium 10 mg 11/08/16 22:00 11/22/16 21:10 Lipitor - PO 10 mg HS [facility] Administration Ferrous Sulfate 325 mg 11/09/16 10:00 11/23/16 09:45 Feosol - PO 325 mg DAILY [facility] Administration Furosemide 100 mg 11/19/16 10:21 11/23/16 06:05 Lasix Injection - IVPUSH 100 mg BIDLASIX [facility] Administration Milrinone Lactate/Dextrose 100 mls @ 6.789 mls/hr 11/20/16 10:44 11/23/16 06:48 Milrinone 20mg/100ml Ivpb - IVPB 6.789 mls/hr TITR [facility] Administration 0.325 MCG/KG/MIN Vasopressin 50 units/ Sodium 100 mls @ 4.8 mls/hr 11/21/16 17:01 11/23/16 09:45 Chloride IVPB 4.8 mls/hr TITR [facility] Administration 2.4 UNITS/HR Metolazone 2.5 mg 11/19/16 13:30 11/23/16 05:25 Zaroxolyn - PO 2.5 mg 0530,1330 [facility] Administration Polyethylene Glycol 17 gm 11/09/16 10:00 11/23/16 09:45 Miralax (For Daily Use) - PO 17 gm DAILY [facility] Administration Potassium Chloride 40 meq 11/19/16 14:00 11/23/16 05:25 K-Dur - PO 40 meq TID [facility] Administration Ranitidine HCl 150 mg 11/09/16 10:00 11/23/16 09:44 Zantac - PO 150 mg DAILY [facility] Administration - Objective Vital Signs: Vital Signs Temp 98.8 F 11/23/16 06:00 Pulse 80 11/23/16 09:45 Resp 20 11/23/16 06:00 BP 105/61 11/23/16 09:45 Pulse Ox 94 L 11/23/16 06:00 Intake & Output 11/22/16 11/22/16 11/23/16 11:59 23:59 11:59 Intake Total 428.0 655.1 448.0 Balance 428.0 655.1 448.0 Weight 154 lb 4 oz 153 lb 6.4 oz Intake: IV 188.0 115.1 148.0 Milrinone 20Mg/100Ml Ivpb 80.4 61.9 80.4 - 100 ml @ 0.325 MCG/KG/ MIN 6.789 mls/hr IVPB TITR [facility] Rx#:[id number] Pitressin - 50 Units In 57.6 43.2 57.6 Normal Saline - 97.5 ml @ 2.4 UNITS/HR 4.8 mls/hr IVPB TITR [facility] Rx#: [id number] SL 50 10 10 IVPB 100 100 Oral 240 440 200 Other: Voiding Method Diaper Incontinent Diaper # Unmeasured Voids Void 3 2 2 Bowel Movement Yes: huge No No # Bowel Movements 1 Weight Measurement Method Patient Lift Scale Patient Lift Scale Constitutional: Yes: No Distress, Calm Eyes: No: Sclera Icterus HENT: No: Nasal Congestion Cardiovascular: Yes: Regular Rate and Rhythm, JVD (++ EJs), S1, S2, Other (PMI non diplaced) Respiratory: Yes: Regular, Diminished (bases). No: Accessory Muscle Use, Rales , Wheezes Gastrointestinal: Yes: Normal Bowel Sounds, Soft. No: Tenderness Musculoskeletal: Yes: Other (No kyphosis) Extremities: No: Cold Edema: Yes (1+ low pretib/ankles) Integumentary: No: Jaundice Neurological: Yes: Alert. No: Seizure Psychiatric: No: Agitated Labs: Laboratory Last Values WBC 9.6 K/mm3 (4.0-10.0) 11/23/16 05:35 RBC 4.20 M/mm3 (4.00-5.60) 11/23/16 05:35 Hgb 9.6 GM/dL (11.7-16.9) L 11/23/16 05:35 Hct 33.3 % (35.4-49) L 11/23/16 05:35 MCV 79.3 fl (80-96) L 11/23/16 05:35 MCH 22.8 pg (25.7-33.7) L 11/23/16 05:35 MCHC 28.7 g/dl (32.0-35.9) L 11/23/16 05:35 RDW 24.0 % (11.9-15.9) H 11/23/16 05:35 Plt Count 156 K/MM3 (134-434) 11/23/16 05:35 MPV 8.9 fl (7.5-11.1) 11/23/16 05:35 Neutrophils % 72.8 % (42.8-82.8) 11/21/16 10:30 Lymphocytes % 13.1 % (8-40) 11/21/16 10:30 Monocytes % 12.4 % (3.8-10.2) H 11/21/16 10:30 Eosinophils % 1.4 % (0-4.5) 11/21/16 10:30 Basophils % 0.3 % (0-2.0) 11/21/16 10:30 Differential Comment Slide scanned 11/10/16 05:20 Platelet Estimate Adequate (NORMAL) 11/21/16 10:30 Platelet Comment No clumping noted 11/11/16 05:50 Polychromasia Few 11/11/16 05:50 Hypochromic-Microcytic 2+ 11/21/16 10:30 Poikilocytosis 1+ 11/21/16 10:30 Anisocytosis 2+ 11/21/16 10:30 Microcytosis 1+ 11/17/16 05:35 Macrocytosis 2+ 11/17/16 05:35 Target Cells 2+ 11/17/16 05:35 Morphology Comment Slide scanned 11/10/16 05:20 INR 1.43 (0.82-1.09) H 11/10/16 05:20 Puncture Site Right radial 11/19/16 10:07 ABG pH 7.48 (7.35-7.45) H 11/19/16 10:07 ABG pCO2 at Pt Temp 59.5 mmHg (35-45) H 11/19/16 10:07 ABG pO2 at Pt Temp 141.0 mmHg (70-100) H D 11/19/16 10:07 ABG HCO3 44.0 meq/L (22-26) H* 11/19/16 10:07 ABG O2 Sat (Measured) 100.0 % (90-98.9) H* 11/19/16 10:07 ABG O2 Content 12.1 % vol (15-22) L 11/19/16 10:07 ABG Base Excess 18.1 meq/l (-2-2) H* 11/19/16 10:07 Louis Test Positive 11/19/16 10:07 O2 Delivery Device Non rebreather 11/19/16 10:07 Oxygen Flow Rate 100% 11/19/16 10:07 Sodium 142 mmol/L (136-145) 11/23/16 05:35 Potassium 3.9 mmol/L (3.5-5.1) 11/23/16 05:35 Chloride 93 mmol/L (98-107) L 11/23/16 05:35 Carbon Dioxide 42 mmol/L (21-32) H 11/23/16 05:35 Anion Gap 7 (8-16) L 11/23/16 05:35 BUN 78 mg/dL (7-18) H 11/23/16 05:35 Creatinine 1.5 mg/dL (0.7-1.3) H 11/23/16 05:35 Creat Clearance w eGFR 42.24 (>60) 11/22/16 05:35 Random Glucose 114 mg/dL (74-106) H D 11/23/16 05:35 Calcium 8.6 mg/dL (8.5-10.1) 11/23/16 05:35 Magnesium 2.6 mg/dL (1.8-2.4) H 11/18/16 05:35 Total Bilirubin 0.9 mg/dL (0.2-1.0) 11/22/16 05:35 AST 83 U/L (15-37) H D 11/22/16 05:35 ALT 35 U/L (12-78) D 11/22/16 05:35 Alkaline Phosphatase 223 U/L (45-117) H D 11/22/16 05:35 Creatine Kinase 20 IU/L (39-308) L 11/09/16 05:53 Troponin I 0.14 ng/ml (0.00-0.05) H 11/09/16 05:53 Total Protein 6.2 g/dl (6.4-8.2) L 11/22/16 05:35 Albumin 1.9 g/dl (3.4-5.0) L 11/22/16 05:35 Fluid Amylase 30 11/14/16 12:40 Peritoneal WBC 319 /mm3 11/14/16 12:40 Peritoneal RBC 2,188 /mm3 11/14/16 12:40 Periton Neutrophils 11 % 11/14/16 12:40 Periton Lymphocytes 36 % 11/14/16 12:40 Periton Mesothelial 13 % 11/14/16 12:40 Periton Macrophages 40 % 11/14/16 12:40 Peritoneal Tot Protein 3 gm/dL 11/14/16 12:40 Peritoneal Albumin 1 g/dL 11/14/16 12:40 Peritoneal LDH 74 IU/L 11/14/16 12:40 Peritoneal Glucose 157 mg/dL 11/14/16 12:40 Peritoneal Amylase 30 U/L 11/14/16 12:40 (tele: NSR, V-P/V-S; brief nsvt) cath 2012 all grafts patent (self to lad, svg to lcx, svg to rpda) Echo 07/2016: mod lve, sev reduced LV fn (global). mild rve with mild hypo ( severe TR, intrinsic RV fn likely more depressed), 1+ mr, severe tr, mod phtn, + pl effusion Echo 07/2015: sev lve, sev reduced lvef (global). grade 2 diastolic dysfunction. nl RV. mild connie. dilated ivc. mod mr, mod-sev tr, sev phtn, mild pr. Echo 08/03: sev LVE with severe decr EF; mild RV dil with moderate hypo; mod MR/ TR; RVSP >60 ecg 11/08/16: sr, vpaced, pvc cxr: chf a/p: 76 yo ex smoker, with h/o CAD s/p CABG, ischemic CM with EF 25% s/p BiVICD with secondary severe pulmonary hypertension, prior CVA, HL, copd, CKD, bph, chronic iron deficiency anemia here with chf. isch CMP/acute systolic CHF: -08/2016 admitted here for chf needing milrinone/vasopressin/lasix -despite high doses of diuretic (torsemide 100 bid with metolazone at times) he reaccumulated volume and is now back in chf exacerbation (goal wt 130 lbs, here now at 150) -started lasix 80 iv bid here -wt not accurate, 150 yest, 170 today -given was on equivalent of 200mg po daily lasix at home (i.e. torsemide 100mg) , will double that dose = lasix 100mg iv bid. 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 Continue lasix 80mg BID -11/11: Weight at 169#, Creat stable. remains volume up on exam. Will add metolazone 2.5mg before AM lasix dose. -11/12: renal fxn and wt remained unchanged on lasix 80 IV BID, until metolazone (2.5) given yest--wt down today, renal fxn and lytes stable. cont lasix (incr to 100 iv bid), with metolazone 2.5 qd -11/13: continue current lasix 100 bid with metolazone. If still no sig decrease in wt tomorrow may need to add milrinone. Can also d/w IR about possible paracentesis to help remove volume. -11/14: wt not decreasing much and cr up a bit today. Will have paracentesis today. If wt/cr not improving tomorrow then will start on milrinone. -11/15: had large vol paracentesis yesterday, vol down today. Will cont with iv lasix and metolazone for today. If wt/cr not improving tomorrow then will start on milrinone. -11/16: no further wt decline since paracentesis, remains vol up with rising cr as well. Will now start milrinone in addition to current lasix iv/metolazone. If bp too low with milrinone may need vasopressin as well. -11/17: on milrinone gtt 0.375; wt down 2 lbs, bun down but creat up slightly. JVD signif improved vs previous, though remains elevated. very frequent NSVT runs on tele. given pt's age and GFR 30s, will reduce milrinone to 0.25mcg/kg/ min. cont lasix 100 iv bid and metolazone 2.5. rpt CXR in am--hope to see effusions signif improving -11/18: wt down, cr stable/improved. CXR with minor improvement. Cont same milrinone/diuresis. -11/19: CXR reviewed: definite improvement though signif pulm edema/effusions persist. wt up 1 lb today, hypoxic with mild sob--back on FM this AM. neck veins way up again today. renal fxn stable. will incr diuresis (metolazone bid today), cont lasix 100 iv bid with milrinone same -hypotensive with low dose metopr succinate 12.5 qd here--med d/c'd -d/w daughter about possible need for home milrinone in fusion, she is agreeable if needed. Will see how does on this admit and decide if he may need eval by chf team at the [facility] to set up home milrinone. - 11/20: no further weight gain, but no significant loss. Now diuresis being hindered by low bp's. May need uptitration of milrinone to support bp ( decreased dose from 0.375 b/c of frequent nsvt). Will increase dose slightly up to 0.325. aggressive lyte repletion. no bmp today, will repeat. -11/21: still overloaded but wt not decreasing because bp has been too low and missing several lasix doses. Will add vasopressin today to help raise bp so that he can be diueresed effectively with lasix/milrinone. -11/22: after vasopressin added his bp has been better and now will be able to get lasix/metalazone today, monitor response. -11/23: wt slightly improved, cr improved, and bp has improved with vasopressin so now able to get his lasix/metolazone reliably. Cont current diuretics/ inotropes. V Tach: - nsvt seen on prior ICD checks and on tele here in past as well. - replete K/Mag aggressively (usual goals) - freq runs, some longish (though non-sustained) - bp too low for bb CAD s/p h/o CABG 2006 - have been holding ASA, plavix due to anemia. - trop borderline intermediate range and no change x 2, no clinical signs ACS here -cont statin anemia -recent admits for anemia, responded to prbcs and hgb stable. GI w/u deferred then 2/2 chf. He has been off asa and plavix and hgb remains stable. h/o CVA: -was on ASA, plavix --> on hold as above. PAT/PSVT - brief episodes on tele here in past manjinder: -likely cardiorenal syndrome -diuresis plan as above, trend cr
[2016-11-23] MEDS ORDERED: PT OWN MED DRAWER 7, Y5N ONE (13:43)
[2016-11-23] MEDS ORDERED: ALBUTEROL SO4 0.083% IH SOL 2.5 MG/3 ML VIAL.NEB. NEB ONE (14:01)
[2016-11-23 14:13] LABS: ARTERIAL BLOOD GAS BASE EXCESS 16.2 meq/l (-2-2); ARTERIAL BLOOD GAS HCO3 43.1 meq/L (22-26); ARTERIAL BLOOD GAS PO2 84.3 mmHg (70-100); ARTERIAL BLOOD GAS pH 7.43 (7.35-7.45)
[2016-11-23 14:14] LABS: ALLENS TEST POSITIVE; ART PUNCT SITE RIGHT RADIAL; LPM/O2% 45%; PT. ON O2? YES
[2016-11-23 14:15] LABS: TYPE OF O2 BIPAP IPAP 10 EPAP 5; VENT RATE 12
[2016-11-23] MEDS: ALBUTEROL SO4 0.083% IH SOL 2.5 MG/3 ML VIAL.NEB. NEB PRN (14:44)
[2016-11-23] MEDS: ATORVASTATIN CA 10 MG TABLET (FP) PO SCH (21:58)
[2016-11-24] MEDS: METOLAZONE 2.5 MG TABLET (FP) PO SCH ×2 (05:30→14:43)
[2016-11-24] MEDS: VASOPRESSIN 50 UNITS in SODIUM CHLORIDE 97.5 ML IVPB SCH (05:37)
[2016-11-24] MEDS: POTASSIUM CHLORIDE TABS 20 MEQ TABLET.ER (FP) PO SCH ×3 (06:07→21:39)
[2016-11-24] MEDS: FUROSEMIDE 100 MG/10 ML INJECTABLE VIAL IVPUSH SCH (06:09)
--- NOTE | 2016-11-24 08:28 | PN ---
Progress Note (short form) - Note Progress Note: Events noted. desat yesterday-- had discussed with nursing staff last night. on bipap awake. comfortable Vital Signs Temp 99.7 F H 11/24/16 01:55 Pulse 98 H 11/24/16 05:37 Resp 20 11/24/16 01:55 BP 103/57 11/24/16 05:37 Pulse Ox 95 11/24/16 06:45 Intake & Output 11/23/16 11/23/16 11/24/16 11:59 23:59 11:59 Intake Total 816.0 120 Balance 816.0 120 Weight 153 lb 6.4 oz 143 lb Intake: IV 296.0 Milrinone 20Mg/100Ml Ivpb 160.8 - 100 ml @ 0.325 MCG/KG/ MIN 6.789 mls/hr IVPB TITR [facility] Rx#:[id number] Pitressin - 50 Units In 115.2 Normal Saline - 97.5 ml @ 2.4 UNITS/HR 4.8 mls/hr IVPB TITR [facility] Rx#: [id number] SL 20 IVPB 200 Oral 320 120 Other: Voiding Method Diaper Incontinent # Unmeasured Voids Void 2 Bowel Movement No Yes No # Bowel Movements 1 Weight Measurement Method Patient Lift Scale Patient Lift Scale Active Medications Acetaminophen (Tylenol -) 650 mg PO Q4H PRN PRN Reason: FEVER OR PAIN Last Admin: 11/22/16 02:12 Dose: 650 mg Albuterol Sulfate (Ventolin 0.083% Nebulizer Soln -) 1 amp NEB Q6H PRN PRN Reason: SHORT OF BREATH/WHEEZING Last Admin: 11/23/16 14:44 Dose: 1 amp Allopurinol (Zyloprim -) 100 mg PO DAILY [facility] Last Admin: 11/23/16 09:44 Dose: 100 mg Ascorbic Acid (Vitamin C -) 500 mg PO DAILY [facility] Last Admin: 11/23/16 09:44 Dose: 500 mg Atorvastatin Calcium (Lipitor -) 10 mg PO HS [facility] Last Admin: 11/23/16 21:58 Dose: 10 mg Ferrous Sulfate (Feosol -) 325 mg PO DAILY [facility] Last Admin: 11/23/16 09:45 Dose: 325 mg Furosemide (Lasix Injection -) 100 mg IVPUSH BIDLASIX [facility] Last Admin: 11/24/16 06:09 Dose: 100 mg Milrinone Lactate/Dextrose (Milrinone 20mg/100ml Ivpb -) 100 mls @ 6.789 mls/ hr IVPB TITR [facility] PRN Reason: 0.325 MCG/KG/MIN Last Admin: 11/23/16 06:48 Dose: 6.789 mls/hr Vasopressin 50 units/ Sodium (Chloride) 100 mls @ 4.8 mls/hr IVPB TITR [facility] PRN Reason: 2.4 UNITS/HR Last Admin: 11/24/16 05:37 Dose: 4.8 mls/hr Metolazone (Zaroxolyn -) 2.5 mg PO 0530,1330 [facility] Last Admin: 11/24/16 05:30 Dose: 2.5 mg Polyethylene Glycol (Miralax (For Daily Use) -) 17 gm PO DAILY [facility] Last Admin: 11/23/16 09:45 Dose: 17 gm Potassium Chloride (K-Dur -) 40 meq PO TID [facility] Last Admin: 11/24/16 06:07 Dose: 40 meq Ranitidine HCl (Zantac -) 150 mg PO DAILY [facility] Last Admin: 11/23/16 09:44 Dose: 150 mg CBC, BMP 11/23/16 05:35 11/23/16 05:35 cxr - no change. Physical Exam. Constitutional: Yes: No Distress, Comfortable. Cardiovascular: Yes: Regular Rate and Rhythm, Murmur Respiratory: Yes: Diminished. No: Rales, Rhonchi Gastrointestinal: Yes: Normal Bowel Sounds, Soft, slightly distended No: Tenderness Edema: LLE: Trace, RLE: Trace Neurological: Yes: Alert Assessment/Plan overall condition getting worse. continue with meds prognosis remains poor end stage heart disease Pt is DNR/DNI hospice eval ? will discuss with Dr. Alston again will follow Problem List - Problems (1) Anemia Code(s): D64.9 - ANEMIA, UNSPECIFIED Qualifiers: Anemia type: iron deficiency Iron deficiency anemia type: unspecified iron deficiency Qualified Code(s): D50.9 - Iron deficiency anemia, unspecified (2) CHF exacerbation Code(s): I50.9 - HEART FAILURE, UNSPECIFIED (3) Pacemaker Code(s): Z95.0 - PRESENCE OF CARDIAC PACEMAKER (4) Ascites Code(s): R18.8 - OTHER ASCITES
[2016-11-24] MEDS: POLYETHYLENE GLYCOL 3350 119 GM BTL PO SCH (10:01)
[2016-11-24] MEDS: RANITIDINE HCL 150 MG TABLET (FP) PO SCH (10:01)
[2016-11-24] MEDS: ASCORBIC ACID 500 MG TABLET (FP) PO SCH (10:01)
[2016-11-24] MEDS: FERROUS SO4 325 MG TABLET (FP) PO SCH (10:01)
[2016-11-24] MEDS: ALLOPURINOL 100 MG TABLET (FP) PO SCH (10:01)
--- NOTE | 2016-11-24 10:48 | PN ---
Progress Note, Physician Chief Complaint: No events Remains on Milrinone/vasopressin TEle with V-paced and couplets - Current Medication List Current Medications: Active Medications Acetaminophen (Tylenol -) 650 mg PO Q4H PRN PRN Reason: FEVER OR PAIN Last Admin: 11/22/16 02:12 Dose: 650 mg Albuterol Sulfate (Ventolin 0.083% Nebulizer Soln -) 1 amp NEB Q6H PRN PRN Reason: SHORT OF BREATH/WHEEZING Last Admin: 11/23/16 14:44 Dose: 1 amp Allopurinol (Zyloprim -) 100 mg PO DAILY [facility] Last Admin: 11/24/16 10:01 Dose: 100 mg Ascorbic Acid (Vitamin C -) 500 mg PO DAILY [facility] Last Admin: 11/24/16 10:01 Dose: 500 mg Atorvastatin Calcium (Lipitor -) 10 mg PO HS [facility] Last Admin: 11/23/16 21:58 Dose: 10 mg Ferrous Sulfate (Feosol -) 325 mg PO DAILY [facility] Last Admin: 11/24/16 10:01 Dose: 325 mg Furosemide (Lasix Injection -) 100 mg IVPUSH BIDLASIX [facility] Last Admin: 11/24/16 06:09 Dose: 100 mg Milrinone Lactate/Dextrose (Milrinone 20mg/100ml Ivpb -) 100 mls @ 6.789 mls/ hr IVPB TITR [facility] PRN Reason: 0.325 MCG/KG/MIN Last Admin: 11/23/16 06:48 Dose: 6.789 mls/hr Vasopressin 50 units/ Sodium (Chloride) 100 mls @ 4.8 mls/hr IVPB TITR [facility] PRN Reason: 2.4 UNITS/HR Last Admin: 11/24/16 05:37 Dose: 4.8 mls/hr Metolazone (Zaroxolyn -) 2.5 mg PO 0530,1330 [facility] Last Admin: 11/24/16 05:30 Dose: 2.5 mg Polyethylene Glycol (Miralax (For Daily Use) -) 17 gm PO DAILY [facility] Last Admin: 11/24/16 10:01 Dose: 17 gm Potassium Chloride (K-Dur -) 40 meq PO TID [facility] Last Admin: 11/24/16 06:07 Dose: 40 meq Ranitidine HCl (Zantac -) 150 mg PO DAILY [facility] Last Admin: 11/24/16 10:01 Dose: 150 mg - Objective Vital Signs: Vital Signs Temperature 99.7 F H 11/24/16 01:55 Pulse Rate 98 H 11/24/16 05:37 Respiratory Rate 20 11/24/16 01:55 Blood Pressure 103/57 11/24/16 05:37 O2 Sat by Pulse Oximetry (%) 95 11/24/16 06:45 Constitutional: Yes: No Distress Eyes: Yes: WNL HENT: Yes: WNL Neck: Yes: WNL Cardiovascular: Yes: Regular Rate and Rhythm, JVD Respiratory: Yes: Regular Extremities: Yes: WNL Edema: Yes (warm) Labs: CBC, BMP 11/23/16 05:35 11/23/16 05:35 INR, PTT INR 1.43 (0.82-1.09) H 11/10/16 05:20 Assessment/Plan a/p: 76 yo ex smoker, with h/o CAD s/p CABG, ischemic CM with EF 25% s/p BiVICD with secondary severe pulmonary hypertension, prior CVA, HL, copd, CKD, bph, chronic iron deficiency anemia here with chf. isch CMP/acute systolic CHF: -08/2016 admitted here for chf needing milrinone/vasopressin/lasix -despite high doses of diuretic (torsemide 100 bid with metolazone at times) he reaccumulated volume and is now back in chf exacerbation (goal wt 130 lbs, here now at 150) -started lasix 80 iv bid here -wt not accurate, 150 yest, 170 today -given was on equivalent of 200mg po daily lasix at home (i.e. torsemide 100mg) , will double that dose = lasix 100mg iv bid. 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 Continue lasix 80mg BID -11/11: Weight at 169#, Creat stable. remains volume up on exam. Will add metolazone 2.5mg before AM lasix dose. -11/12: renal fxn and wt remained unchanged on lasix 80 IV BID, until metolazone (2.5) given yest--wt down today, renal fxn and lytes stable. cont lasix (incr to 100 iv bid), with metolazone 2.5 qd -11/13: continue current lasix 100 bid with metolazone. If still no sig decrease in wt tomorrow may need to add milrinone. Can also d/w IR about possible paracentesis to help remove volume. -11/14: wt not decreasing much and cr up a bit today. Will have paracentesis today. If wt/cr not improving tomorrow then will start on milrinone. -11/15: had large vol paracentesis yesterday, vol down today. Will cont with iv lasix and metolazone for today. If wt/cr not improving tomorrow then will start on milrinone. -11/16: no further wt decline since paracentesis, remains vol up with rising cr as well. Will now start milrinone in addition to current lasix iv/metolazone. If bp too low with milrinone may need vasopressin as well. -11/17: on milrinone gtt 0.375; wt down 2 lbs, bun down but creat up slightly. JVD signif improved vs previous, though remains elevated. very frequent NSVT runs on tele. given pt's age and GFR 30s, will reduce milrinone to 0.25mcg/kg/ min. cont lasix 100 iv bid and metolazone 2.5. rpt CXR in am--hope to see effusions signif improving -11/18: wt down, cr stable/improved. CXR with minor improvement. Cont same milrinone/diuresis. -11/19: CXR reviewed: definite improvement though signif pulm edema/effusions persist. wt up 1 lb today, hypoxic with mild sob--back on FM this AM. neck veins way up again today. renal fxn stable. will incr diuresis (metolazone bid today), cont lasix 100 iv bid with milrinone same -hypotensive with low dose metopr succinate 12.5 qd here--med d/c'd -d/w daughter about possible need for home milrinone in fusion, she is agreeable if needed. Will see how does on this admit and decide if he may need eval [facility] chf [facility] to set up home milrinone. - 11/20: no further weight gain, but no significant loss. Now diuresis being hindered by low bp's. May need uptitration of milrinone to support bp ( decreased dose from 0.375 b/c of frequent nsvt). Will increase dose slightly up to 0.325. aggressive lyte repletion. no bmp today, will repeat. -11/21: still overloaded but wt not decreasing because bp has been too low and missing several lasix doses. Will add vasopressin today to help raise bp so that he can be diueresed effectively with lasix/milrinone. -11/22: after vasopressin added his bp has been better and now will be able to get lasix/metalazone today, monitor response. -11/23: wt slightly improved, cr improved, and bp has improved with vasopressin so now able to get his lasix/metolazone reliably. Cont current diuretics/ inotropes. 11/24: Weight down to 143. BP stable. renal function stable. Continue current diuretic and inotropic support. V Tach: - nsvt seen on prior ICD checks and on tele here in past as well. - replete K/Mag aggressively (usual goals) - freq runs, some longish (though non-sustained) - bp too low for bb CAD s/p h/o CABG 2006 - have been holding ASA, plavix due to anemia. - trop borderline intermediate range and no change x 2, no clinical signs ACS here -cont statin anemia -recent admits for anemia, responded to prbcs and hgb stable. GI w/u deferred then 2/2 chf. He has been off asa and plavix and hgb remains stable. h/o CVA: -was on ASA, plavix --> on hold as above. PAT/PSVT - brief episodes on tele here in past manjinder: -likely cardiorenal syndrome -diuresis plan as above, trend cr
[2016-11-24] MEDS: ALBUTEROL SO4 0.083% IH SOL 2.5 MG/3 ML VIAL.NEB. NEB PRN (11:50)
[2016-11-24] MEDS: MILRINONE 20MG/100ML IVPB - 100 ML IVPB SCH (14:43)
[2016-11-24] MEDS: ATORVASTATIN CA 10 MG TABLET (FP) PO SCH (21:39)
[2016-11-25] MEDS: MILRINONE 20MG/100ML IVPB - 100 ML IVPB SCH ×3 (00:26→15:18)
[2016-11-25] MEDS: VASOPRESSIN 50 UNITS in SODIUM CHLORIDE 97.5 ML IVPB SCH ×2 (01:16→23:32)
[2016-11-25] MEDS: METOLAZONE 2.5 MG TABLET (FP) PO SCH ×2 (05:59→13:14)
[2016-11-25] MEDS: POTASSIUM CHLORIDE TABS 20 MEQ TABLET.ER (FP) PO SCH ×3 (06:00→21:30)
[2016-11-25] MEDS: FUROSEMIDE 100 MG/10 ML INJECTABLE VIAL IVPUSH SCH ×2 (06:35→15:16)
[2016-11-25] MEDS: POLYETHYLENE GLYCOL 3350 119 GM BTL PO SCH (10:18)
[2016-11-25] MEDS: ALLOPURINOL 100 MG TABLET (FP) PO SCH (10:18)
[2016-11-25] MEDS: RANITIDINE HCL 150 MG TABLET (FP) PO SCH (10:18)
[2016-11-25] MEDS: ASCORBIC ACID 500 MG TABLET (FP) PO SCH (10:18)
[2016-11-25] MEDS: FERROUS SO4 325 MG TABLET (FP) PO SCH (10:18)
--- NOTE | 2016-11-25 10:39 | PN ---
Progress Note, Physician History of Present Illness: No events overnight Tele: V-paced with PVCs - Current Medication List Current Medications: Active Medications Acetaminophen (Tylenol -) 650 mg PO Q4H PRN PRN Reason: FEVER OR PAIN Last Admin: 11/22/16 02:12 Dose: 650 mg Albuterol Sulfate (Ventolin 0.083% Nebulizer Soln -) 1 amp NEB Q6H PRN PRN Reason: SHORT OF BREATH/WHEEZING Last Admin: 11/24/16 11:50 Dose: 1 amp Allopurinol (Zyloprim -) 100 mg PO DAILY [facility] Last Admin: 11/25/16 10:18 Dose: 100 mg Ascorbic Acid (Vitamin C -) 500 mg PO DAILY [facility] Last Admin: 11/25/16 10:18 Dose: 500 mg Atorvastatin Calcium (Lipitor -) 10 mg PO HS [facility] Last Admin: 11/24/16 21:39 Dose: 10 mg Ferrous Sulfate (Feosol -) 325 mg PO DAILY [facility] Last Admin: 11/25/16 10:18 Dose: 325 mg Furosemide (Lasix Injection -) 100 mg IVPUSH BIDLASIX [facility] Last Admin: 11/25/16 06:35 Dose: 100 mg Milrinone Lactate/Dextrose (Milrinone 20mg/100ml Ivpb -) 100 mls @ 6.789 mls/ hr IVPB TITR [facility] PRN Reason: 0.325 MCG/KG/MIN Last Admin: 11/25/16 00:26 Dose: 6.789 mls/hr Vasopressin 50 units/ Sodium (Chloride) 100 mls @ 4.8 mls/hr IVPB TITR [facility] PRN Reason: 2.4 UNITS/HR Last Admin: 11/25/16 01:16 Dose: 4.8 mls/hr Metolazone (Zaroxolyn -) 2.5 mg PO 0530,1330 [facility] Last Admin: 11/25/16 05:59 Dose: 2.5 mg Polyethylene Glycol (Miralax (For Daily Use) -) 17 gm PO DAILY [facility] Last Admin: 11/25/16 10:18 Dose: Not Given Potassium Chloride (K-Dur -) 40 meq PO TID [facility] Last Admin: 11/25/16 06:00 Dose: 40 meq Ranitidine HCl (Zantac -) 150 mg PO DAILY [facility] Last Admin: 11/25/16 10:18 Dose: 150 mg - Objective Vital Signs: Vital Signs Temperature 97.7 F 11/25/16 06:00 Pulse Rate 106 H 11/25/16 06:00 Respiratory Rate 19 11/25/16 06:00 Blood Pressure 110/50 11/25/16 06:00 O2 Sat by Pulse Oximetry (%) 99 11/25/16 05:39 Labs: CBC, BMP 11/23/16 05:35 11/23/16 05:35 INR, PTT INR 1.43 (0.82-1.09) H 11/10/16 05:20
--- NOTE | 2016-11-25 11:21 | PN ---
Progress Note, Physician History of Present Illness: No events I/O (+) 850 Weight 145 (153) Tele: V-paced with PVCs - Current Medication List Current Medications: Active Medications Acetaminophen (Tylenol -) 650 mg PO Q4H PRN PRN Reason: FEVER OR PAIN Last Admin: 11/22/16 02:12 Dose: 650 mg Albuterol Sulfate (Ventolin 0.083% Nebulizer Soln -) 1 amp NEB Q6H PRN PRN Reason: SHORT OF BREATH/WHEEZING Last Admin: 11/24/16 11:50 Dose: 1 amp Allopurinol (Zyloprim -) 100 mg PO DAILY [facility] Last Admin: 11/25/16 10:18 Dose: 100 mg Ascorbic Acid (Vitamin C -) 500 mg PO DAILY [facility] Last Admin: 11/25/16 10:18 Dose: 500 mg Atorvastatin Calcium (Lipitor -) 10 mg PO HS [facility] Last Admin: 11/24/16 21:39 Dose: 10 mg Ferrous Sulfate (Feosol -) 325 mg PO DAILY [facility] Last Admin: 11/25/16 10:18 Dose: 325 mg Furosemide (Lasix Injection -) 100 mg IVPUSH BIDLASIX [facility] Last Admin: 11/25/16 06:35 Dose: 100 mg Milrinone Lactate/Dextrose (Milrinone 20mg/100ml Ivpb -) 100 mls @ 6.789 mls/ hr IVPB TITR [facility] PRN Reason: 0.325 MCG/KG/MIN Last Admin: 11/25/16 00:26 Dose: 6.789 mls/hr Vasopressin 50 units/ Sodium (Chloride) 100 mls @ 4.8 mls/hr IVPB TITR [facility] PRN Reason: 2.4 UNITS/HR Last Admin: 11/25/16 01:16 Dose: 4.8 mls/hr Metolazone (Zaroxolyn -) 2.5 mg PO 0530,1330 [facility] Last Admin: 11/25/16 05:59 Dose: 2.5 mg Polyethylene Glycol (Miralax (For Daily Use) -) 17 gm PO DAILY [facility] Last Admin: 11/25/16 10:18 Dose: Not Given Potassium Chloride (K-Dur -) 40 meq PO TID [facility] Last Admin: 11/25/16 06:00 Dose: 40 meq Ranitidine HCl (Zantac -) 150 mg PO DAILY [facility] Last Admin: 11/25/16 10:18 Dose: 150 mg - Objective Vital Signs: Vital Signs Temperature 97.7 F 11/25/16 06:00 Pulse Rate 106 H 11/25/16 06:00 Respiratory Rate 19 11/25/16 06:00 Blood Pressure 110/50 11/25/16 06:00 O2 Sat by Pulse Oximetry (%) 99 11/25/16 05:39 Constitutional: Yes: No Distress, Cachectic Eyes: Yes: WNL HENT: Yes: WNL Neck: Yes: Trachea Midline Cardiovascular: Yes: Pulse Irregular, JVD Respiratory: Yes: CTA Bilaterally Gastrointestinal: Yes: WNL Extremities: Yes: WNL, Other (warm) Edema: Yes Edema: LLE: Trace, RLE: Trace Labs: CBC, BMP 11/23/16 05:35 11/23/16 05:35 INR, PTT INR 1.43 (0.82-1.09) H 11/10/16 05:20 Assessment/Plan a/p: 76 yo ex smoker, with h/o CAD s/p CABG, ischemic CM with EF 25% s/p BiVICD with secondary severe pulmonary hypertension, prior CVA, HL, copd, CKD, bph, chronic iron deficiency anemia here with chf. isch CMP/acute systolic CHF: -08/2016 admitted here for chf needing milrinone/vasopressin/lasix -despite high doses of diuretic (torsemide 100 bid with metolazone at times) he reaccumulated volume and is now back in chf exacerbation (goal wt 130 lbs, here now at 150) -started lasix 80 iv bid here -wt not accurate, 150 yest, 170 today -given was on equivalent of 200mg po daily lasix at home (i.e. torsemide 100mg) , will double that dose = lasix 100mg iv bid. 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 Continue lasix 80mg BID -11/11: Weight at 169#, Creat stable. remains volume up on exam. Will add metolazone 2.5mg before AM lasix dose. -11/12: renal fxn and wt remained unchanged on lasix 80 IV BID, until metolazone (2.5) given yest--wt down today, renal fxn and lytes stable. cont lasix (incr to 100 iv bid), with metolazone 2.5 qd -11/13: continue current lasix 100 bid with metolazone. If still no sig decrease in wt tomorrow may need to add milrinone. Can also d/w IR about possible paracentesis to help remove volume. -11/14: wt not decreasing much and cr up a bit today. Will have paracentesis today. If wt/cr not improving tomorrow then will start on milrinone. -11/15: had large vol paracentesis yesterday, vol down today. Will cont with iv lasix and metolazone for today. If wt/cr not improving tomorrow then will start on milrinone. -11/16: no further wt decline since paracentesis, remains vol up with rising cr as well. Will now start milrinone in addition to current lasix iv/metolazone. If bp too low with milrinone may need vasopressin as well. -11/17: on milrinone gtt 0.375; wt down 2 lbs, bun down but creat up slightly. JVD signif improved vs previous, though remains elevated. very frequent NSVT runs on tele. given pt's age and GFR 30s, will reduce milrinone to 0.25mcg/kg/ min. cont lasix 100 iv bid and metolazone 2.5. rpt CXR in am--hope to see effusions signif improving -11/18: wt down, cr stable/improved. CXR with minor improvement. Cont same milrinone/diuresis. -11/19: CXR reviewed: definite improvement though signif pulm edema/effusions persist. wt up 1 lb today, hypoxic with mild sob--back on FM this AM. neck veins way up again today. renal fxn stable. will incr diuresis (metolazone bid today), cont lasix 100 iv bid with milrinone same -hypotensive with low dose metopr succinate 12.5 qd here--med d/c'd -d/w daughter about possible need for home milrinone in fusion, she is agreeable if needed. Will see how does on this admit and decide if he may need eval by chf team at [facility] to set up home milrinone. - 11/20: no further weight gain, but no significant loss. Now diuresis being hindered by low bp's. May need uptitration of milrinone to support bp ( decreased dose from 0.375 b/c of frequent nsvt). Will increase dose slightly up to 0.325. aggressive lyte repletion. no bmp today, will repeat. -11/21: still overloaded but wt not decreasing because bp has been too low and missing several lasix doses. Will add vasopressin today to help raise bp so that he can be diueresed effectively with lasix/milrinone. -11/22: after vasopressin added his bp has been better and now will be able to get lasix/metalazone today, monitor response. -11/23: wt slightly improved, cr improved, and bp has improved with vasopressin so now able to get his lasix/metolazone reliably. Cont current diuretics/ inotropes. 11/24: Weight down to 143. BP stable. renal function stable. Continue current diuretic and inotropic support. 11/25: BP stable. renal function stable (BUN/Cr 78/1.5). Continue current diuretic and inotropic support. V Tach: - nsvt seen on prior ICD checks and on tele here in past as well. - replete K/Mag aggressively (usual goals) - freq runs, some longish (though non-sustained) - bp too low for bb
--- NOTE | 2016-11-25 12:00 | PN ---
Progress Note (short form) - Note Progress Note: patient awake and comfortable . No distress Chronic ill appearance Daughter at bedside Denies pain Vital Signs Temp 97.7 F 11/25/16 06:00 Pulse 106 H 11/25/16 06:00 Resp 19 11/25/16 06:00 BP 110/50 11/25/16 06:00 Pulse Ox 99 11/25/16 05:39 Intake & Output 11/24/16 11/25/16 11/25/16 23:59 11:59 23:59 Intake Total 400 220 Balance 400 220 Weight 149 lb 6 oz Intake: IV 200 Milrinone 20Mg/100Ml Ivpb 200 - 100 ml @ 0.325 MCG/KG/ MIN 6.789 mls/hr IVPB TITR [facility] Rx#:[id number] IVPB 100 Oral 200 120 Other: Voiding Method Diaper Incontinent Bowel Movement Yes Weight Measurement Method Patient Lift Scale CBC, BMP 11/23/16 05:35 11/23/16 05:35 Active Medications Acetaminophen (Tylenol -) 650 mg PO Q4H PRN PRN Reason: FEVER OR PAIN Last Admin: 11/22/16 02:12 Dose: 650 mg Albuterol Sulfate (Ventolin 0.083% Nebulizer Soln -) 1 amp NEB Q6H PRN PRN Reason: SHORT OF BREATH/WHEEZING Last Admin: 11/24/16 11:50 Dose: 1 amp Allopurinol (Zyloprim -) 100 mg PO DAILY [facility] Last Admin: 11/25/16 10:18 Dose: 100 mg Ascorbic Acid (Vitamin C -) 500 mg PO DAILY [facility] Last Admin: 11/25/16 10:18 Dose: 500 mg Atorvastatin Calcium (Lipitor -) 10 mg PO HS [facility] Last Admin: 11/24/16 21:39 Dose: 10 mg Ferrous Sulfate (Feosol -) 325 mg PO DAILY [facility] Last Admin: 11/25/16 10:18 Dose: 325 mg Furosemide (Lasix Injection -) 100 mg IVPUSH BIDLASIX [facility] Last Admin: 11/25/16 06:35 Dose: 100 mg Milrinone Lactate/Dextrose (Milrinone 20mg/100ml Ivpb -) 100 mls @ 6.789 mls/ hr IVPB TITR [facility] PRN Reason: 0.325 MCG/KG/MIN Last Admin: 11/25/16 00:26 Dose: 6.789 mls/hr Vasopressin 50 units/ Sodium (Chloride) 100 mls @ 4.8 mls/hr IVPB TITR [facility] PRN Reason: 2.4 UNITS/HR Last Admin: 11/25/16 01:16 Dose: 4.8 mls/hr Metolazone (Zaroxolyn -) 2.5 mg PO 0530,1330 [facility] Last Admin: 11/25/16 05:59 Dose: 2.5 mg Polyethylene Glycol (Miralax (For Daily Use) -) 17 gm PO DAILY [facility] Last Admin: 11/25/16 10:18 Dose: Not Given Potassium Chloride (K-Dur -) 40 meq PO TID [facility] Last Admin: 11/25/16 06:00 Dose: 40 meq Ranitidine HCl (Zantac -) 150 mg PO DAILY [facility] Last Admin: 11/25/16 10:18 Dose: 150 mg Physical Exam. Constitutional: Yes: No Distress, Calm. Cardiovascular: Yes: Regular Rate and Rhythm, Murmur Respiratory: Yes: Diminished. No: Rales, Rhonchi Gastrointestinal: Yes: Normal Bowel Sounds, Soft, slightly distended No: Tenderness Edema: LLE: Trace, RLE: Trace Neurological: Yes: Alert Assessment/Plan overall condition Same continue with meds prognosis remains poor end stage heart disease Pt is DNR/DNI follow-up labs cardiology follow-up noted discussed with patient's daughter Will follow Problem List - Problems (1) Anemia Code(s): D64.9 - ANEMIA, UNSPECIFIED Qualifiers: Anemia type: iron deficiency Iron deficiency anemia type: unspecified iron deficiency Qualified Code(s): D50.9 - Iron deficiency anemia, unspecified (2) CHF exacerbation Code(s): I50.9 - HEART FAILURE, UNSPECIFIED (3) Pacemaker Code(s): Z95.0 - PRESENCE OF CARDIAC PACEMAKER (4) Ascites Code(s): R18.8 - OTHER ASCITES
[2016-11-25] MEDS ORDERED: PT OWN MED DRAWER 7, Y5N ONE ×2 (13:12→16:52)
[2016-11-25] MEDS: ATORVASTATIN CA 10 MG TABLET (FP) PO SCH (21:31)
[2016-11-26] MEDS: METOLAZONE 2.5 MG TABLET (FP) PO SCH (05:32)
[2016-11-26] MEDS: POTASSIUM CHLORIDE TABS 20 MEQ TABLET.ER (FP) PO SCH (05:33)
[2016-11-26] MEDS: FUROSEMIDE 100 MG/10 ML INJECTABLE VIAL IVPUSH SCH (05:57)
[2016-11-26 06:23] VITALS: BP 100/61; PULSE 90; TEMP 98.5
[2016-11-26] MEDS: MILRINONE 20MG/100ML IVPB - 100 ML IVPB SCH (06:44)
[2016-11-26 07:22] LABS: BASOPHIL 0.7 % (0-2.0); EOSINOPHIL 1.2 % (0-4.5); MCH 23.2 pg (25.7-33.7); MCHC 29.3 g/dl (32.0-35.9); MEAN PLT VOLUME 8.9 fl (7.5-11.1); NEUTROPHILS 78.2 % (42.8-82.8); PLATELET COUNT 198 K/MM3 (134-434); RDW 24.2 % (11.9-15.9); WHITE BLOOD COUNT 8.6 K/mm3 (4.0-10.0)
[2016-11-26 07:32] LABS: ALBUMIN 1.7 g/dl (3.4-5.0); BILIRUBIN,TOTAL 1.3 mg/dL (0.2-1.0); CALCIUM 8.4 mg/dL (8.5-10.1); CREATININE 1.5 mg/dL (0.7-1.3); GLUCOSE,RANDOM 121 mg/dL (74-106); SGOT/AST 41 U/L (15-37); SGPT/ALT 27 U/L (12-78); TOT PROT 6.1 g/dl (6.4-8.2)
[2016-11-26 07:33] LABS: ALK PHOS 222 U/L (45-117)
--- NOTE | 2016-11-26 08:28 | RAPID ---
Physical Examination Findings/Remarks: Called to see patient for unresponsiveness. On exam the patient did not respond to verbal or physical stimuli. Absent heart and breath sounds. Absent peripheral pulses. Pupils are fixed and dilated. Patient pronounced at 08: 08. Dr. Driscoll notified. Daughter was notified. Eyes: Yes: Other (Pupils fixed and dialaited.) Cardiovascular: Yes: Other (No pulse. No cardiac sounds apreciated. 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 Patient was DNR and pronounced at 08:08. Primary doc and daughter notified. Primary Physician Notified: Purnima Driscoll
[2016-11-26 09:02] LABS: ANION GAP 2 (8-16); CO2 51 mmol/L (21-32)
[2016-11-26 09:04] LABS: HYPOCHROMIA 2+; POLYCHROMASIA FEW
[2016-11-26 09:05] LABS: ANISOCYTOSIS 2+; TARGET CELLS 2+; TEAR DROP CELLS FEW
--- NOTE | 2016-11-26 09:12 | PN ---
Progress Note, Physician - Current Medication List Current Medications: Active Medications Acetaminophen (Tylenol -) 650 mg PO Q4H PRN PRN Reason: FEVER OR PAIN Last Admin: 11/22/16 02:12 Dose: 650 mg Albuterol Sulfate (Ventolin 0.083% Nebulizer Soln -) 1 amp NEB Q6H PRN PRN Reason: SHORT OF BREATH/WHEEZING Last Admin: 11/24/16 11:50 Dose: 1 amp Allopurinol (Zyloprim -) 100 mg PO DAILY [facility] Last Admin: 11/25/16 10:18 Dose: 100 mg Ascorbic Acid (Vitamin C -) 500 mg PO DAILY [facility] Last Admin: 11/25/16 10:18 Dose: 500 mg Atorvastatin Calcium (Lipitor -) 10 mg PO HS [facility] Last Admin: 11/25/16 21:31 Dose: 10 mg Ferrous Sulfate (Feosol -) 325 mg PO DAILY [facility] Last Admin: 11/25/16 10:18 Dose: 325 mg Furosemide (Lasix Injection -) 100 mg IVPUSH BIDLASIX [facility] Last Admin: 11/26/16 05:57 Dose: 100 mg Milrinone Lactate/Dextrose (Milrinone 20mg/100ml Ivpb -) 100 mls @ 6.789 mls/ hr IVPB TITR [facility] PRN Reason: 0.325 MCG/KG/MIN Last Admin: 11/26/16 06:44 Dose: 6.789 mls/hr Vasopressin 50 units/ Sodium (Chloride) 100 mls @ 4.8 mls/hr IVPB TITR [facility] PRN Reason: 2.4 UNITS/HR Last Admin: 11/25/16 23:32 Dose: 4.8 mls/hr Metolazone (Zaroxolyn -) 2.5 mg PO 0530,1330 [facility] Last Admin: 11/26/16 05:32 Dose: 2.5 mg Polyethylene Glycol (Miralax (For Daily Use) -) 17 gm PO DAILY [facility] Last Admin: 11/25/16 10:18 Dose: Not Given Potassium Chloride (K-Dur -) 40 meq PO TID [facility] Last Admin: 11/26/16 05:33 Dose: 40 meq Potassium Chloride (K-Dur -) 40 meq PO ONCE ONE Stop: 11/26/16 09:11 Ranitidine HCl (Zantac -) 150 mg PO DAILY [facility] Last Admin: 11/25/16 10:18 Dose: 150 mg - Objective Vital Signs: Vital Signs Temperature 98.5 F 11/26/16 06:00 Pulse Rate 90 11/26/16 06:00 Respiratory Rate 20 11/26/16 06:00 Blood Pressure 100/61 11/26/16 06:00 O2 Sat by Pulse Oximetry (%) 91 L 11/26/16 07:09 Labs: CBC, BMP 11/26/16 05:35 11/26/16 05:35 INR, PTT INR 1.43 (0.82-1.09) H 11/10/16 05:20 Assessment/Plan cath 2012 all grafts patent (self to lad, svg to lcx, svg to rpda) Echo 07/2016: mod lve, sev reduced LV fn (global). mild rve with mild hypo ( severe TR, intrinsic RV fn likely more depressed), 1+ mr, severe tr, mod phtn, + pl effusion Echo 07/2015: sev lve, sev reduced lvef (global). grade 2 diastolic dysfunction. nl RV. mild connie. dilated ivc. mod mr, mod-sev tr, sev phtn, mild pr. Echo 08/03: sev LVE with severe decr EF; mild RV dil with moderate hypo; mod MR/ TR; RVSP >60 ecg 11/08/16: sr, vpaced, pvc cxr: chf a/p: 76 yo ex smoker, with h/o CAD s/p CABG, ischemic CM with EF 25% s/p BiVICD with secondary severe pulmonary hypertension, prior CVA, HL, copd, CKD, bph, chronic iron deficiency anemia here with chf. isch CMP/acute systolic CHF: -08/2016 admitted here for chf needing milrinone/vasopressin/lasix -despite high doses of diuretic (torsemide 100 bid with metolazone at times) he reaccumulated volume and is now back in chf exacerbation (goal wt 130 lbs, here now at 150) -started lasix 80 iv bid here -wt not accurate, 150 yest, 170 today -given was on equivalent of 200mg po daily lasix at home (i.e. torsemide 100mg) , will double that dose = lasix 100mg iv bid. 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 Continue lasix 80mg BID -11/11: Weight at 169#, Creat stable. remains volume up on exam. Will add metolazone 2.5mg before AM lasix dose. -11/12: renal fxn and wt remained unchanged on lasix 80 IV BID, until metolazone (2.5) given yest--wt down today, renal fxn and lytes stable. cont lasix (incr to 100 iv bid), with metolazone 2.5 qd -11/13: continue current lasix 100 bid with metolazone. If still no sig decrease in wt tomorrow may need to add milrinone. Can also d/w IR about possible paracentesis to help remove volume. -11/14: wt not decreasing much and cr up a bit today. Will have paracentesis today. If wt/cr not improving tomorrow then will start on milrinone. -11/15: had large vol paracentesis yesterday, vol down today. Will cont with iv lasix and metolazone for today. If wt/cr not improving tomorrow then will start on milrinone. -11/16: no further wt decline since paracentesis, remains vol up with rising cr as well. Will now start milrinone in addition to current lasix iv/metolazone. If bp too low with milrinone may need vasopressin as well. -11/17: on milrinone gtt 0.375; wt down 2 lbs, bun down but creat up slightly. JVD signif improved vs previous, though remains elevated. very frequent NSVT runs on tele. given pt's age and GFR 30s, will reduce milrinone to 0.25mcg/kg/ min. cont lasix 100 iv bid and metolazone 2.5. rpt CXR in am--hope to see effusions signif improving -11/18: wt down, cr stable/improved. CXR with minor improvement. Cont same milrinone/diuresis. -11/19: CXR reviewed: definite improvement though signif pulm edema/effusions persist. wt up 1 lb today, hypoxic with mild sob--back on FM this AM. neck veins way up again today. renal fxn stable. will incr diuresis (metolazone bid today), cont lasix 100 iv bid with milrinone same -hypotensive with low dose metopr succinate 12.5 qd here--med d/c'd -d/w daughter about possible need for home milrinone in fusion, she is agreeable if needed. Will see how does on this admit and decide if he may need eval by chf team at [facility] to set up home milrinone. - 11/20: no further weight gain, but no significant loss. Now diuresis being hindered by low bp's. May need uptitration of milrinone to support bp ( decreased dose from 0.375 b/c of frequent nsvt). Will increase dose slightly up to 0.325. aggressive lyte repletion. no bmp today, will repeat. -11/21: still overloaded but wt not decreasing because bp has been too low and missing several lasix doses. Will add vasopressin today to help raise bp so that he can be diueresed effectively with lasix/milrinone. -11/22: after vasopressin added his bp has been better and now will be able to get lasix/metalazone today, monitor response. -11/23-11/25: wt slightly improved, cr improved, and bp has improved with vasopressin so now able to get his lasix/metolazone reliably. Cont current diuretics/inotropes. -11/26: has done well with lasix 100 iv bid plus metolazone 2.5 bid, with milrinone plus vasopressin added for BP support. wt down 24 lbs since admit, renal fxn improved significantly while here, with this regimen. needs home inotropes--will need to reassess his BP off vasopressin, on milrinone, once he is well diuresed and onto oral diuretic regimen. if stable bp and chf status at that point, can consider discharge with outpt chf consultation to initiate home milrinone vs inpatient transfer--per dr makrus Iverson Tach: - nsvt seen on prior ICD checks and on tele here in past as well. - replete K/Mag aggressively (usual goals), as doing - freq runs, some longish (though non-sustained) - bp too low for bb CAD s/p h/o CABG 2006 - have been holding ASA, plavix due to anemia. - trop borderline intermediate range and no change x 2, no clinical signs ACS here -cont statin anemia -recent admits for anemia, responded to prbcs and hgb stable. GI w/u deferred then 2/2 chf. He has been off asa and plavix and hgb remains stable. h/o CVA: -was on ASA, plavix --> on hold as above. PAT/PSVT - brief episodes on tele here in past manjinder: -likely cardiorenal syndrome -diuresis plan as above, trend cr
[2016-11-26] MEDS ORDERED: POTASSIUM CHLORIDE TABS 20 MEQ TABLET.ER (FP) PO ONE (09:30)
--- NOTE | 2016-11-26 11:18 | DS ---
Physical Examination Vital Signs: Vital Signs Temperature 98.5 F 11/26/16 06:00 Pulse Rate 90 11/26/16 06:00 Respiratory Rate 20 11/26/16 06:00 Blood Pressure 100/61 11/26/16 06:00 O2 Sat by Pulse Oximetry (%) 91 L 11/26/16 07:09 Labs: CBC, BMP 11/26/16 05:35 11/26/16 05:35 Discharge Summary Reason For Visit: CHF Current Active Problems Ascites (Acute) CHF (congestive heart failure) (Acute) Cellulitis of knee, left (Acute) Hospital Course: Mr. Daksha Kerr is a 76 year old male with a significant past medical history of CAD s/p CABG with EF 25%, s/p BiVICD w/ secondary severe pulmonary HTN, prior CVA, HL, CKD, BPH, and Iron deficiency anemia admitted for chf exac has end stage heart disease treated with diuretics cardiology followed overall condition was poor has paracentesis done for ascites also pt went into cardiac arrest today and . Condition: - Instructions Referrals: Purnima Driscoll MD [Primary Care Provider] - - Home Medications Comprehensive Discharge Medication List: Ambulatory Orders Atorvastatin Ca [Lipitor] 10 mg PO HS 02/08/14 Ranitidine [Zantac -] 150 mg PO DAILY 02/08/14 Ascorbic Acid [Vitamin C -] 500 mg PO DAILY #30 tablet 09/06/16 Ferrous Sulfate [Feosol] 325 mg PO DAILY #30 tab 09/06/16 Polyethylene Glycol 3350 [Miralax 119 gm Btl -] 17 gm PO DAILY #1 bottle Torsemide [Demadex -] 100 mg PO DAILY #90 tablet 09/06/16 Acetaminophen [Tylenol] 650 mg PO Q4H PRN 09/19/16 Allopurinol [Zyloprim -] 100 mg PO DAILY #90 tab 09/20/16 Metolazone 5 mg PO DAILY 11/08/16
== END 2016-11-26 08:00 | disposition expired | DRG 291 ==
LOC: JER 10:15 → JERBED 14:56 → J4W 16:54
PROVIDERS: ADMIT Internal Medicine; ATTEND Internal Medicine
PROC: 5A09557 Assistance with Respiratory Ventilation, Greater than 96 Consecutive Hours, Continuous Positive Airway Pressure (ICD-10-PCS; 2016-11-08)
PROC: 0W9G3ZX Drainage of Peritoneal Cavity, Percutaneous Approach, Diagnostic (ICD-10-PCS; principal; 2016-11-14)
DX: I13.0 Hypertensive heart and chronic kidney disease with heart failure and stage 1 through stage 4 chronic kidney disease, or unspecified chronic kidney disease (principal); I50.21 Acute systolic (congestive) heart failure; R18.8 Other ascites; L03.116 Cellulitis of left lower limb; I47.1 Supraventricular tachycardia; I47.2 Ventricular tachycardia; N17.9 Acute kidney failure, unspecified; N18.9 Chronic kidney disease, unspecified; I25.10 Atherosclerotic heart disease of native coronary artery without angina pectoris; Z95.1 Presence of aortocoronary bypass graft; N40.0 Benign prostatic hyperplasia without lower urinary tract symptoms; I27.2 Other secondary pulmonary hypertension; Z86.73 Personal history of transient ischemic attack (TIA), and cerebral infarction without residual deficits; Z95.0 Presence of cardiac pacemaker; D64.9 Anemia, unspecified; I25.5 Ischemic cardiomyopathy; J44.9 Chronic obstructive pulmonary disease, unspecified; Z87.891 Personal history of nicotine dependence; I49.01 Ventricular fibrillation
CPT/HCPCS: 36415; 36600; 71010-TC; 76705-TC; 76942-TC; 80048; 80053; 82042; 82150; 82550; 82803; 82945; 83615; 83735; 84157; 84478; 84484; 85025; 85027; 85610; 87070; 87075; 87102; 87116; 87205; 87206; 87210; 88108; 88305-TC; 89051; 93005; 93010; 94640; 94660; 97116-GP; 97161-GP; 99283-25; J1644